=== PATIENT | female | born 1990 | race Caucasian/White ===

== ENCOUNTER 2021-03-02 14:24 | Emergency (ER) | payer MEDICAID, SELFPAY ==
--- NOTE | 2021-03-02 | ECG_ITS ---
Test Reason : CHEST PAIN Blood Pressure : / mmHG Vent. Rate : 105 BPM Atrial Rate : 105 BPM P-R Int : 154 ms QRS Dur : 106 ms QT Int : 366 ms P-R-T Axes : 051 062 051 degrees QTc Int : 483 ms Sinus tachycardia Otherwise normal ECG No previous ECGs available Referred By: Generic ED Physician Electronically Signed By:Damian Hung
[2021-03-02 14:32] VITALS: BP 140/80; PULSE 118; O2SAT 96
== END 2021-03-02 19:02 | disposition left against medical advice (07) ==
PROVIDERS: Emergency Provider Emergency Medicine; PCP Nurse Practitioner Family
DX: R07.9 Chest pain, unspecified (principal)
CPT/HCPCS: 93005; 99283

== ENCOUNTER 2021-04-14 17:33 | Emergency (ER) | payer MEDICAID, SELFPAY ==
[2021-04-14 17:49] VITALS: BP 151/98; PULSE 110; RESP 18; TEMP 36.8; O2SAT 99; BMI 36.6
--- NOTE | 2021-04-14 22:11 | PC.NURSE ---
PATIENT LEAVING WAITING ROOM AND CHECKING BACK IN WHILE STILL ON THE TRIAGE TRACKER. PATIENT LWT AROUND 2100 SHE REPORTS
== END 2021-04-14 22:13 | disposition left against medical advice (07) ==
PROVIDERS: Emergency Provider Emergency Medicine
DX: R10.9 Unspecified abdominal pain (principal)
CPT/HCPCS: 99281

== ENCOUNTER 2021-04-14 21:39 | Inpatient (IN) | payer MEDICAID, OTHER, SELFPAY ==
[2021-04-14 21:58] VITALS: BP 130/79; PULSE 120; RESP 20; TEMP 35.7; O2SAT 96; BMI 39.9
[2021-04-14 22:18] LABS: MANUAL DIFF FLAG NO
[2021-04-14 22:20] LABS: Basophils Percent Auto 0.1 % (0-2); Eosinophils Absolute Auto 0.1 X10*3/uL (0.0-0.4); Eosinophils Percent Auto 1.3 % (0-4); Hematocrit 31.9 % (37.0-47.0); Hemoglobin 10.2 g/dl (12.0-16.0); Imm Gran Abs Auto 0.02 X10*3/uL (0.00-0.03); Imm Gran Pct Auto 0.3 % (0.0-0.4); Lymphocytes Absolute Auto 2.2 X10*3/uL (1.2-4.9); Lymphocytes Percent Auto 27.9 % (20-40); Mean Corpuscular Hemoglobin 25.8 pg (27.0-33.0); Mean Corpuscular Volume 80.8 fL (80.0-98.0); Monocytes Absolute Auto 0.4 X10*3/uL (0.1-1.2); Monocytes Percent Auto 5.7 % (2-11); Neutrophils Percent Auto 64.7 % (45-73); Platelet Count 218 X10*3/uL (160-400); Red Blood Count 3.95 X10*6/uL (4.20-5.50); Red Cell Distribution Width 14.6 % (11.0-16.0); White Blood Count 7.7 X10*3/uL (4.8-10.8)
[2021-04-14 22:33] LABS: Ethanol < 10 mg/dL
[2021-04-14 22:36] LABS: COVID-19 Test Negative (Negative)
[2021-04-14 22:37] LABS: Alanine Aminotransferase 24 U/L (0-31); Albumin Level 4.1 g/dL (3.5-5.0); Alkaline Phosphatase 111 U/L (39-117); Anion Gap 11 (12-20); Aspartate Amino Transferase 24 U/L (5-31); Bilirubin Direct < 0.2 mg/dL (0.0-0.5); Bilirubin Total 0.3 mg/dL (0.0-1.0); Blood Urea Nitrogen 7 mg/dL (9-16); Calcium 9.6 mg/dL (8.4-10.2); Carbon Dioxide 27 mmol/L (22-29); Chloride 103 mmol/L (96-108); Creatinine Clr Calc Pharmacy 110.6; Estimated Glomerular Filt Rate > 60; Glucose Random 101 mg/dL (60-115); Lipase 25 U/L (8-78); Potassium 4.4 mmol/L (3.3-5.1); Sodium 137 mmol/L (135-145); Total Protein 7.4 g/dL (6.5-8.0)
--- NOTE | 2021-04-14 23:07 | ED_ITS ---
HPI - Psych General Chief Complaint: Psychiatric Symptoms Stated Complaint: crisis Time Seen by Provider: 04/14/21 22:10 Source: patient Mode of arrival: ambulatory Limitations: no limitations History of Present Illness HPI Narrative: This is a 31-year-old female past medical history significant for anxiety, depression, bipolar, PTSD presenting to the emergency department saying i just don't want to live anymore X1 week. patient tells me she is in a usp and recently lost custody of her daughter, she feels like everything is going downhill. She tells me she has had previous suicide attempts including overdosing and trying to hang herself. She tells me that this time she does not have a specific plan but she would likely overdose on medications. She tells me she feels anxious, and depressed. Denies visual, auditory and tactile hallucinations. She tells me she uses heroin and cocaine, IV. She smokes 5 cigarets a day. Denies alcohol use. she denies any medical complaints at this time. She is tearful and appears very anxious. Reports taking all her medications as prescribed. MD complaint: suicidal ideation, feels depressed, anxiety and substance abuse Onset (ago): week(s) (1) Duration: constant History of same: Yes Relieving factors: none Exacerbating factors: none Context: recent drug abuse and significant life stressor Associated psychiatric symptoms: depression, suicidal ideation and racing thoughts Associated symptoms: denies other symptoms Treatments prior to arrival: placed on mental health hold If self harm: admits thoughts of self harm and has plan (overdose) Related Data Allergies Allergy/AdvReac Type Severity Reaction Status Date / Time acetaminophen Allergy Mild UNKNOWN Verified 04/14/21 21:58 [From Darvocet-N 50] meperidine [From Demerol] Allergy Mild UNKNOWN Verified 04/14/21 21:58 Penicillins Allergy Mild UNKNOWN Verified 04/14/21 21:58 propoxyphene Allergy Mild UNKNOWN Verified 04/14/21 21:58 [From Darvocet-N 50] Sulfa (Sulfonamide Allergy Mild UNKNOWN, Verified 04/14/21 21:58 Antibiotics) HIVES penicillin V Allergy Unknown SWELLING Verified 12/28/16 00:00 Review of Systems Review of Systems: Constitutional : No Fever, No Chills ENT/Mouth : No Ear Pain, No Nasal Congestion, No sore throat Eyes: No Eye Pain, No Swelling, No Redness Cardiovascular : No Chest Pain, No SOB Respiratory : No Cough, No Sputum, No Dyspnea Gastrointestinal : No Nausea, No Vomiting, No Diarrhea, No Hematochezia, No Melena Genitourinary : No Dysuria, No Urinary Frequency, No Hematuria Musculoskeletal : No Myalgias Skin : No Skin Lesions, No rash Neuro : No Weakness, No Numbness, No Paresthesias, No Dizziness, No Headache Psych : positive Anxiety, positive Depression, positive SI/HI All other systems reviewed and are negative Yes all other systems are reviewed and are negative [facility] Past Medical History Attestation statement: The following information was validated with the patient. Source: old records reviewed and nursing notes reviewed Social History Social History Advance Directives: No Advance Directives Information Provided: No Patient : No Physical Exam Vital Signs: Vital Signs: Last Vital Signs Temp 96.3 F L 04/14/21 21:58 Pulse 120 H 04/14/21 21:58 Resp 20 04/14/21 21:58 BP 130/79 04/14/21 21:58 Pulse Ox 96 04/14/21 21:58 BMI result Body Mass Index 39.9 VSS Appearance: Alert.? Oriented X3.? No acute distress.?+ tearful Head: Normocephalic, atraumatic, no step-offs or deformities Eyes: Pupils equal, round and reactive to light.? ENT: Pharynx normal.? Neck: Normal inspection.? Neck supple.? CVS: Normal heart rate and rhythm.? Pulses normal.? Respiratory: No respiratory distress.? Breath sounds normal.? Abdomen: Soft and nontender.? Skin: Skin warm and dry.? Normal skin color.? Normal skin turgor.?+ Superficial lacerations noted to bilateral ventral aspects of forearms. + Track walker noted to bilateral hands and forearms. Extremities: No lower extremity edema.? No calf ttp. 5/5 strength to bilateral upper and lower extremities Back: No midline tenderness, no C-spine tenderness, full range of motion, no CVA tenderness bilaterally Neuro: Oriented X 3.? No motor deficit.? No sensory deficit. CN 2-12 intact Course Reevaluation(s) Reevaluation #1: CBC within normal limits, there is however, a normocytic anemia noted. No acute electrolyte abnormalities. Ethanol less than 10. COVID negative. Urine toxicology pending. At this time patient will be placed in physician observation to allow more time for inpatient placement. At time observation was started patient, c ooperative in no acute distress. Physical examination unchanged from initial. Will continue to monitor. Time: 00:15 MDM - Psych MDM Narrative Medical decision making narrative: 1213 31 yo f presents with suicidal ideation with no specific plan. Hx of same. Heroin and cocain use. PE Significant for an anxious female, tearful with bilateral superficial self- inflicted wounds to forearms, and track walker. Plan at this time is to obtain basic labs, urine and behavioral health consult. Medical Records Attestation: I reviewed the patient's medical records. Lab Data Attestation: I reviewed the patient's lab results. Result diagrams: 04/14/21 22:12 04/14/21 22:12 Labs: Lab Results 04/14/21 04/14/21 04/14/21 Range/Units 22:12 22:12 22:12 WBC 7.7 (4.8-10.8) X10*3/uL RBC 3.95 L (4.20-5.50) X10*6/uL Hgb 10.2 L (12.0-16.0) g/dl Hct 31.9 L (37.0-47.0) % MCV 80.8 (80.0-98.0) fL MCH 25.8 L (27.0-33.0) pg MCHC 32.0 (31.0-35.0) g/dl RDW 14.6 (11.0-16.0) % Plt Count 218 (160-400) X10*3/uL MPV 10.0 (9.4-12.3) fL Immature Gran % (Auto) 0.3 (0.0-0.4) % Neut % (Auto) 64.7 (45-73) % Lymph % (Auto) 27.9 (20-40) % [place] % (Auto) 5.7 (2-11) % Eos % (Auto) 1.3 (0-4) % Baso % (Auto) 0.1 (0-2) % Lymph # (Auto) 2.2 (1.2-4.9) X10*3/uL [place] # (Auto) 0.4 (0.1-1.2) X10*3/uL Eos # (Auto) 0.1 (0.0-0.4) X10*3/uL Baso # (Auto) 0.0 (0.0-0.2) X10*3/uL Abs Immat Gran (auto) 0.02 (0.00-0.03) X10*3/uL Absolute Neuts (auto) 5.0 (2.0-8.3) x10*3/uL Absolute Nucleated RBC 0.000 (0.0-0.012) X10*3/uL Nucleated RBC % (auto) 0.0 (0.0-0.2) /100WBC Sodium 137 (135-145) mmol/L Potassium 4.4 (3.3-5.1) mmol/L Chloride 103 (96-108) mmol/L Carbon Dioxide 27 (22-29) mmol/L Anion Gap 11 L (12-20) BUN 7 L (9-16) mg/dL Creatinine 0.78 (0.5-1.4) mg/dL Estim Creat Clear Calc 110.6 Estimated GFR > 60 Random Glucose 101 (60-115) mg/dL Calcium 9.6 (8.4-10.2) mg/dL Total Bilirubin 0.3 (0.0-1.0) mg/dL Direct Bilirubin < 0.2 (0.0-0.5) mg/dL AST 24 (5-31) U/L ALT 24 (0-31) U/L Alkaline Phosphatase 111 (39-117) U/L Total Protein 7.4 (6.5-8.0) g/dL Albumin 4.1 (3.5-5.0) g/dL Lipase 25 (8-78) U/L Ethyl Alcohol mg/dL COVID-19 (AJ) Negative (Negative) COVID-19 Clin Com See Note 04/14/21 Range/Units 22:12 WBC (4.8-10.8) X10*3/uL RBC (4.20-5.50) X10*6/uL Hgb (12.0-16.0) g/dl Hct (37.0-47.0) % MCV (80.0-98.0) fL MCH (27.0-33.0) pg MCHC (31.0-35.0) g/dl RDW (11.0-16.0) % Plt Count (160-400) X10*3/uL MPV (9.4-12.3) fL Immature Gran % (Auto) (0.0-0.4) % Neut % (Auto) (45-73) % Lymph % (Auto) (20-40) % [place] % (Auto) (2-11) % Eos % (Auto) (0-4) % Baso % (Auto) (0-2) % Lymph # (Auto) (1.2-4.9) X10*3/uL [place] # (Auto) (0.1-1.2) X10*3/uL Eos # (Auto) (0.0-0.4) X10*3/uL Baso # (Auto) (0.0-0.2) X10*3/uL Abs Immat Gran (auto) (0.00-0.03) X10*3/uL Absolute Neuts (auto) (2.0-8.3) x10*3/uL Absolute Nucleated RBC (0.0-0.012) X10*3/uL Nucleated RBC % (auto) (0.0-0.2) /100WBC Sodium (135-145) mmol/L Potassium (3.3-5.1) mmol/L Chloride (96-108) mmol/L Carbon Dioxide (22-29) mmol/L Anion Gap (12-20) BUN (9-16) mg/dL Creatinine (0.5-1.4) mg/dL Estim Creat Clear Calc Estimated GFR Random Glucose (60-115) mg/dL Calcium (8.4-10.2) mg/dL Total Bilirubin (0.0-1.0) mg/dL Direct Bilirubin (0.0-0.5) mg/dL AST (5-31) U/L ALT (0-31) U/L Alkaline Phosphatase (39-117) U/L Total Protein (6.5-8.0) g/dL Albumin (3.5-5.0) g/dL Lipase (8-78) U/L Ethyl Alcohol < 10 mg/dL COVID-19 (AJ) (Negative) COVID-19 Clin Com Critical Care Time Critical Care Time Critical Care Time: No Discharge Plan Discharge Clinical Impression: Suicidal ideation, Depression, Acute anxiety Patient Disposition: Still a Patient
[2021-04-15 01:49] LABS: Appearance Urine CLEAR; Color Urine YELLOW; Glucose Urine UA NEG (NEG); Leukocyte Esterase Urine NEG (NEG); Nitrite Urine NEG (NEG); Urine Blood NEG (NEG); Urine Ketones NEG (NEG); Urine Protein NEG (NEG-TRACE)
[2021-04-15 01:51] LABS: UPreg QC Valid YES; Urine Pregnancy NEGATIVE (NEGATIVE)
[2021-04-15 01:56] LABS: RBC Urine 0 /HPF (0); Squamous Epithelial Cell Urine 2+ /LPF; WBC Urine 0-2 /HPF (0-4)
--- NOTE | 2021-04-15 02:04 | PC.NURSE ---
[facility] referral completed/confirmed by Morena, patient will be screened in the morning
[2021-04-15 02:05] LABS: Amphetamine Screen Urine POSITIVE (Not Detect); Barbiturates, Urine Not Detected (Not Detect); Benzodiazepines Screen Urine Not Detected (Not Detect); Cannabinoid Screen Urine Not Detected (Not Detect); Cocaine Screen Urine POSITIVE (Not Detect); Fentanyl, urine POSITIVE (Not Detect); Opiate Screen Urine Not Detected (Not Detect); Phencyclidine Screen Urine Not Detected (Not Detect)
[2021-04-15 02:41] VITALS: BP 91/53; PULSE 80; RESP 14; TEMP 35.6
--- NOTE | 2021-04-15 03:40 | PC.NURSE ---
pt a&o, denies any sob or chest pain. pt stating she does not want to live any more. Pt was tearful at time but cooperative. 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 Belonging secured with security. pt been sleeping most of the evening with out any events. Pt remains on 1:1 observation. will follow up in the am.
[2021-04-15] MEDS: Gabapentin 600 MG TABLET PO ×3 (09:02→22:32)
[2021-04-15] MEDS: LORazepam 0.5 MG TABLET PO (09:03)
--- NOTE | 2021-04-15 09:03 | PC.NURSE ---
sleeping most of the morning, nad, easily woken, alert, speech cleartt, skin wpd, father called and informed of pt status w pt permission, eating breakfast
[2021-04-15 09:33] VITALS: BP 102/51; PULSE 82; RESP 15; O2SAT 96
[2021-04-15 10:59] VITALS: BP 101/59; PULSE 79; RESP 18; O2SAT 96
--- NOTE | 2021-04-15 10:59 | HE.PHANOTE ---
Methadone confirm with Rebecca at [facility]. Patient was lasted dose on 04/08/21 with 170 mg, given 6 dose for home that lasted until 04/14/2021 Ashlee Castaneda, SandipD
--- NOTE | 2021-04-15 11:12 | PHA.MEDREC ---
Pharmacy Consult ? Medication Reconciliation Pharmacy has completed the medication reconciliation. Recieved medication list from [facility]. Patient knew all medications. Reports she can contact her group to have mary brought in if she is going to be staying. Ashlee Castaneda, SandipD
[2021-04-15] MEDS: methADONE HCl 20 MG/2 ML ORAL.CONC 170 MG PO (12:45)
--- NOTE | 2021-04-15 12:53 | HE.PHANOTE ---
Contact the [facility] [phone] to have non-formulary medications brought. An employee will bring the medications later today Ashlee Castaneda PharmD
[2021-04-15] MEDS: Acetaminophen 325 MG TABLET PO ×2 (15:58→22:32)
[2021-04-15 22:29] VITALS: RESP 16
[2021-04-15] MEDS: hydrOXYzine HCL 25 MG TABLET PO (22:32)
[2021-04-15] MEDS: QUEtiapine Fumarate 25 MG TABLET 75 MG PO (22:33)
--- NOTE | 2021-04-16 | ECG_ITS ---
Test Reason : MED CLEARANCE Blood Pressure : / mmHG Vent. Rate : 073 BPM Atrial Rate : 073 BPM P-R Int : 152 ms QRS Dur : 112 ms QT Int : 404 ms P-R-T Axes : 056 081 078 degrees QTc Int : 445 ms Normal sinus rhythm Incomplete right bundle branch block Normal ECG When compared with ECG of 02-MAR-2021 14:39, No significant change was found Referred By: Rashawn Portillo Electronically Signed By:Damian Hung
[2021-04-16 00:10] VITALS: BMI 46.7
[2021-04-16] MEDS: LORazepam 0.5 MG TABLET PO ×2 (00:18→14:35)
[2021-04-16] MEDS: hydrOXYzine HCL 25 MG TABLET PO (00:18)
--- NOTE | 2021-04-16 01:37 | PC.ADMIT ---
patient was a referral from the [facility] ER by the CARE team. legal CV. dx DD. nurse to nurse, collateral information obtained prior to admission. reports previous hospitalizations for inpatient behavioral health at [facility] and rehab admissions in the past.
--- NOTE | 2021-04-16 01:54 | PC.ADMIT ---
reports a ''one time relapse on heroin and cocaine'' and used on Sunday just prior to ER admission. is currently on methadone and denies any w/d s/s. medications were verified in the ER and had received methadone prior to admission to [facility]. does not want information about + drug screen results given to father, [facility] staff or DCF. reports increased depressive symptoms but denies current SI stating ''I'm safe getting treatment, if I wasn't here I think I'd try to OD'' reports superficial cutting events that she self reports as doing on Sunday. ''It helps'' reported cutting events as a teen but then had stopped for many years. L lower leg with several superficial cutting wounds that are healing and show no s/s of infection. medical hx of HTN, hx of Hep C in which she had MAVYRET and is now resolved and reports that she has a surgical appointment at [facility] for Sunday to have her gallbladder removed. Would like to have Hep screen drawn as she reports using a shared needle when she relapsed.treatment plan and safety tool initiated. oriented to unit.
[2021-04-16] MEDS: Omeprazole 20 MG CAPSULE.DR PO (06:49)
[2021-04-16 09:48] VITALS: BP 107/59; PULSE 79; RESP 16; TEMP 36.6; O2SAT 97
[2021-04-16] MEDS: Gabapentin 600 MG TABLET PO ×3 (09:51→20:44)
[2021-04-16] MEDS: methADONE HCl 20 MG/2 ML ORAL.CONC 170 MG PO (09:51)
[2021-04-16] MEDS: buPROPion HCl XL 150 MG TAB.ER.24H PO (09:51)
[2021-04-16] MEDS: buPROPion HCl XL 300 MG TAB.ER.24H PO (09:51)
[2021-04-16] MEDS: Acetaminophen 325 MG TABLET PO ×3 (09:52→20:43)
[2021-04-16] MEDS: atenoloL 25 MG TABLET PO (09:52)
--- NOTE | 2021-04-16 13:50 | ECG_ITS ---
Test Reason : cp Blood Pressure : / mmHG Vent. Rate : 082 BPM Atrial Rate : 082 BPM P-R Int : 132 ms QRS Dur : 110 ms QT Int : 378 ms P-R-T Axes : 042 072 074 degrees QTc Int : 441 ms Normal sinus rhythm Incomplete right bundle branch block Borderline ECG When compared with ECG of 15-APR-2021 23:23, No significant change was found Referred By: Christina Morales Electronically Signed By:LUIZ NAVAS MD
--- NOTE | 2021-04-16 17:32 | P.HPPS_ITS ---
HPI Date of Service: 04/16/21 Chief Complaint: Crisis, cutting and relapse on heroin Sources of Information: patient interviewed, chart reviewed and crisis/core team assessment reviewed HPI Subjective Notes: Conditional Voluntary Healthcare Proxy: No Guardianship: No Narrative: 31 year old mother of 2 (13 yo and 18 mo old) with history of opioid dependence, depression, non-suicidal self injury. Patient has been residing at the [facility] due to heroin dependence and had been sober for several months. She reports her anxiety and urges to cut have been increasing. She also reports she was struggling with gall bladder pain and was supposed to have surgery 04/18/21 at [facility]. Patient presented for abdominal pain related to her gall bladder and also reported increased suicidal ideation and feelings of hopelessness and worthlessness and increased depression after she relapsed. She was having increase NSSI proior to the relapse because of intensifying anxiety. Patient had SI with possible plan of overdosing. She denied AVH, HI or violent ideation. She reports episodes of intense panic that precipitate her cutting. She says she has flashbacks of severe traumas that are overwhelming to her. She reports she has been in touch with her psychiatric practitioner at [facility] and they have been rearranging medications. Her Seroquel was being tapered due to patient reporting sig weight gain. It went down from 150 mg to 75 mg. She reports Lorazepam had helped in the past. She says Latuda which was introduced dutring an October 2020 hospital stay has been helpful. She is on 60 mg. No side effects. She feels guilt and remorse about the relapse since she was doing really well at her sober living home and was on phase II with a lot of freedom. Stressors include 18 month old child in DCF custody about 6 months ago. Past Psychiatric History: Suicide attempt by hanging last year and another by OD Opioid dependence on methadone Non suicidal self injury PTSD Depression Medical Evaluation Reviewed: Yes [facility] Medical History (Updated 04/16/21 @ 06:24 by Brittny Hanks RN) Hypertension Family History: Alcoholism and substance use Social History: Lives in a sober living home [facility] for past several months. Raised by grandparents then started living with her father. Single. 2 children age 13 (lives with his father and hasn't seen him in 10 years) and 18 month old daughter in DCF custody. Substance History: Opioid use disorder on methadone. UTOX positive for Fentanyl, Amphetamine and cocaine Trauma History: Yes, details unknown Diagnostics Vital Signs (24Hr): Vital Signs - 24 hr 04/16/21 09:48 04/16/21 20:52 Temperature 97.9 F 97.9 F Pulse Rate 79 89 Respiratory Rate 16 Blood Pressure 107/59 L 132/71 Pulse Oximetry 97 96 BMI result Body Mass Index 46.7 Labs Results: 04/14/21 22:12 04/14/21 22:12 Labs: Laboratory Results - last 48 hr 04/15/21 04/15/21 04/15/21 01:42 01:42 01:42 Urine Color YELLOW Urine Appearance CLEAR Urine pH 7.0 Ur Specific [place] 1.010 Urine Protein NEG Urine Glucose (UA) NEG Urine Ketones NEG Urine Blood NEG Urine Nitrite NEG Ur Leukocyte Esterase NEG Urine RBC 0 Urine WBC 0-2 Ur Squamous Epith Cells 2+ Urine Bacteria NONE Urine Test NEGATIVE Urine Opiates Screen Not Detected Urine Fentanyl Screen POSITIVE H Ur Barbiturates Screen Not Detected Ur Phencyclidine Scrn Not Detected Ur Amphetamines Screen POSITIVE H U Benzodiazepines Scrn Not Detected Urine Cocaine Screen POSITIVE H U Marijuana (THC) Screen Not Detected EKG EKG Comment: ordered Meds/Allergies Meds Home Medications Acetaminophen (Acetaminophen 325 Mg Tablet) 325 mg PO TID [facility] Last Admin: 04/16/21 20:43 Dose: 325 mg Documented by: Atenolol (Atenolol 25 Mg Tablet) 25 mg PO DAILY [facility]; Protocol Last Admin: 04/16/21 09:52 Dose: 25 mg Documented by: Bupropion HCl (Bupropion Hcl Xl 150 Mg Tab.Er.24h) 150 mg PO DAILY [facility] Last Admin: 04/16/21 09:51 Dose: 150 mg Documented by: Bupropion HCl (Bupropion Hcl Xl 300 Mg Tab.Er.24h) 300 mg PO DAILY [facility] Last Admin: 04/16/21 09:51 Dose: 300 mg Documented by: Clonidine HCl (Clonidine Hcl 0.1 Mg Tablet) 0.1 mg PO TID PRN; Protocol PRN Reason: anxiety unresponsive to Hydroxyzine Gabapentin (Gabapentin 600 Mg Tablet) 600 mg PO TID [facility] Last Admin: 04/16/21 20:44 Dose: 600 mg Documented by: Hydroxyzine HCl (Hydroxyzine Hcl 50 Mg Tablet) 50 mg PO TID PRN PRN Reason: Anxiety Lorazepam (Lorazepam 1 Mg Tablet) 1 mg PO DAILY PRN PRN Reason: Panic Last Admin: 04/16/21 20:44 Dose: 1 mg Documented by: Lurasidone HCl (Lurasidone Hcl 80 Mg Tablet) 80 mg PO BEDTIME [facility] Last Admin: 04/16/21 20:44 Dose: 80 mg Documented by: Methadone HCl (Methadone Hcl 20 Mg/2 Ml Oral.Conc) 170 mg PO DAILY [facility] Last Admin: 04/16/21 09:51 Dose: 170 mg Documented by: Nicotine Polacrilex (Nicotine Polacrilex 2 Mg Gum) 2 mg BUCCAL Q2H PRN PRN Reason: Nicotine Cravings Patient Own Medication ( Lisdexamfetamine [ Vyvanse] 60 Mg Capsule) 1 each PO DAILY [facility] Last Admin: 04/16/21 09:52 Dose: 1 each Documented by: Non-Formulary Medication (Terbinafine Hcl) 250 mg PO DAILY [facility] Omeprazole (Omeprazole 20 Mg Capsule.Dr) 20 mg PO DAILY@0630 [facility] Last Admin: 04/16/21 06:49 Dose: 20 mg Documented by: Pharmacy Consult (Consult Rx Perform Med Rec) 1 each MISCELLANE ONCE PRN PRN Reason: Consult order Quetiapine Fumarate (Quetiapine Fumarate 25 Mg Tablet) 75 mg PO BEDTIME [facility] Last Admin: 04/16/21 20:44 Dose: 75 mg Documented by: Allergies Allergies Allergy/AdvReac Type Severity Reaction Status Date / Time acetaminophen Allergy Mild UNKNOWN Verified 04/14/21 21:58 [From Darvocet-N 50] meperidine [From Demerol] Allergy Mild UNKNOWN Verified 04/14/21 21:58 Penicillins Allergy Mild UNKNOWN Verified 04/14/21 21:58 propoxyphene Allergy Mild UNKNOWN Verified 04/14/21 21:58 [From Darvocet-N 50] Sulfa (Sulfonamide Allergy Mild UNKNOWN, Verified 04/14/21 21:58 Antibiotics) HIVES penicillin V Allergy Unknown SWELLING Verified 12/28/16 00:00 Mental Status Exam Mental Status Exam Patient Appearance: Appropriate Patient Orientation: Person, Place, Time and Situation Level of Consciousness: Awake, Appropriate, Alert and Follows Commands Patient Behavior: Appropriate, Talkative, Cooperative, Anxious, Fearful, Good Eye Contact and Crying Mood Description: Depressed, Anxious, Labile, Sad and Nervous Affect Description: Anxious and Labile Patient Cognition Impaired: No Ability to Follow Directions: Excellent Speech Pattern: Clear, Appropriate, Spontaneous Speech and Pressured Memory Description: Intact Hallucinations: None Delusions: Not Present Thought Process: Intact and Linear Thought Content: positive for Goal Oriented, positive for Linear, positive for Preoccupation and positive for Suicidal Ideation Depressive Symptoms: Increased Anxiety, Insomnia, Difficulty Sleeping, Crying S pells, Feelings of Worthlessness, Hopelessness, Feelings of Guilt, Unhappiness, Thoughts of /Suicide and Low Self Esteem Judgement: Good Assessment & Plan Assessment & Plan (1) Depression: Status: Acute Code(s): F32.A - Depression, unspecified Assessment and Plan: Admit to [facility] on CV Increase Latuda to 80 mg as she has found this very helpful for her Increase Ativan to 1 mg QD PRN anxiety Check EKG Milieu therapy and groups Substance use counseling Collateral contacts. Discharge planning Patient educated on: medication risk/benefits and therapeutic strategies Informed Consent: understands Reason for continued inpatient stay Substantial Risk for: harm to self and rapid decompensation
[2021-04-16] MEDS: LORazepam 1 MG TABLET PO (20:44)
[2021-04-16] MEDS: Lurasidone HCl 80 MG TABLET PO (20:44)
[2021-04-16] MEDS: QUEtiapine Fumarate 25 MG TABLET 75 MG PO (20:44)
[2021-04-16 20:52] VITALS: BP 132/71; PULSE 89; TEMP 36.6; O2SAT 96
[2021-04-17] MEDS: Acetaminophen 325 MG TABLET PO ×2 (09:55→20:40)
[2021-04-17] MEDS: buPROPion HCl XL 150 MG TAB.ER.24H PO (09:55)
[2021-04-17] MEDS: Gabapentin 600 MG TABLET PO ×3 (09:55→20:40)
[2021-04-17] MEDS: atenoloL 25 MG TABLET PO (09:56)
[2021-04-17] MEDS: Omeprazole 20 MG CAPSULE.DR PO (09:56)
[2021-04-17] MEDS: buPROPion HCl XL 300 MG TAB.ER.24H PO (09:56)
[2021-04-17] MEDS: cloNIDine HCL 0.1 MG TABLET PO ×2 (10:00→20:39)
[2021-04-17] MEDS: methADONE HCl 20 MG/2 ML ORAL.CONC 170 MG PO (10:01)
[2021-04-17 10:05] VITALS: BP 125/78; PULSE 102; TEMP 36.4; O2SAT 98
[2021-04-17] MEDS: LORazepam 1 MG TABLET PO (11:12)
[2021-04-17] MEDS: hydrOXYzine HCL 50 MG TABLET PO ×2 (11:12→20:39)
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
[2021-04-17] MEDS: QUEtiapine Fumarate 25 MG TABLET 75 MG PO (20:39)
[2021-04-17] MEDS: Lurasidone HCl 80 MG TABLET PO (20:40)
[2021-04-17 20:43] VITALS: BP 107/70; PULSE 81; TEMP 36.4; O2SAT 97
[2021-04-18] MEDS: hydrOXYzine HCL 50 MG TABLET PO ×3 (08:42→20:11)
[2021-04-18] MEDS: Acetaminophen 325 MG TABLET PO ×3 (08:42→20:11)
[2021-04-18] MEDS: buPROPion HCl XL 150 MG TAB.ER.24H PO (08:43)
[2021-04-18] MEDS: Omeprazole 20 MG CAPSULE.DR PO ×2 (08:44→17:31)
[2021-04-18] MEDS: buPROPion HCl XL 300 MG TAB.ER.24H PO (08:44)
[2021-04-18] MEDS: Gabapentin 600 MG TABLET PO ×3 (08:44→20:11)
[2021-04-18] MEDS: atenoloL 25 MG TABLET PO (08:45)
[2021-04-18] MEDS: methADONE HCl 20 MG/2 ML ORAL.CONC 170 MG PO (08:47)
[2021-04-18 09:00] VITALS: BP 121/58; PULSE 86; RESP 16; TEMP 36.7; O2SAT 95
--- NOTE | 2021-04-18 11:37 | HO.PSYCHPN ---
Subjective Subjective Date of Service: 04/18/21 Reason For Visit: Crisis, cutting and relapse on heroin Subjective Notes: Conditional Voluntary Interim History: Pt continues to endorse depressed mood, feeling very hopeless, helpless. She continues to report suicidal ideation with plan to OD. She reports feeling guilt related to relapse. She is worried about impact of relapsed on getting back her daughter. She reports anxious mood, urges to engage in SIB. She reports improved sleep. She would like to talk with glaze supervisor provider about medication changes. She reports clonazepam more effective than ativan. Medication Compliance: Yes Side effects from medications: No Review of Systems Review of Systems Constitutional : No Fever, No Chills ENT/Mouth : No Ear Pain, No Nasal Congestion, No sore throat Eyes: No Eye Pain, No Swelling, No Redness Cardiovascular : No Chest Pain, No SOB Respiratory : No Cough, No Sputum, No Dyspnea Gastrointestinal : No Nausea, No Vomiting, No Diarrhea, No Hematochezia, No Melena Genitourinary : No Dysuria, No Urinary Frequency, No Hematuria Musculoskeletal : No Myalgias Skin : No Skin Lesions, No rash Neuro : No Weakness, No Numbness, No Paresthesias, No Dizziness, No Headache Psych : positive Anxiety, positive Depression, positive SI/HI All other systems reviewed and are negative Yes all other systems are reviewed and are negative Mental Status Exam Mental Status Exam Narrative: Appearance: casually groomed, arms with superficial cuts, restless/anxious, crying intermittently. good hygiene Behavior: cooperative Psychomotor: no agitation or retardation noted Speech: clear, normal rate/rhythm/volume, spontaneous TP: linear TC: no signs of psychosis, feeling hopeless Mood: depressed Affect: congruent, blunted SI: active with plan to OD but denies any intent on unit HI: none VH/AH: none Insight/judgment: fair x 2. Memory/cog: alert, oriented x 3 grossly intact to conversational testing. Diagnostics Vital Signs (24Hr): Vital Signs - 24 hr 04/17/21 20:43 04/18/21 09:00 Temperature 97.6 F 98.0 F Pulse Rate 81 86 Respiratory Rate 16 Blood Pressure 107/70 121/58 L Pulse Oximetry 97 95 BMI result Body Mass Index 46.7 Labs Results: 04/14/21 22:12 04/14/21 22:12 Medications Medications Current Medications Acetaminophen (Acetaminophen 325 Mg Tablet) 325 mg PO TID [facility] Last Admin: 04/18/21 08:42 Dose: 325 mg Documented by: Atenolol (Atenolol 25 Mg Tablet) 25 mg PO DAILY [facility]; Protocol Last Admin: 04/18/21 08:45 Dose: 25 mg Documented by: Bupropion HCl (Bupropion Hcl Xl 150 Mg Tab.Er.24h) 150 mg PO DAILY [facility] Last Admin: 04/18/21 08:43 Dose: 150 mg Documented by: Bupropion HCl (Bupropion Hcl Xl 300 Mg Tab.Er.24h) 300 mg PO DAILY [facility] Last Admin: 04/18/21 08:44 Dose: 300 mg Documented by: Clonidine HCl (Clonidine Hcl 0.1 Mg Tablet) 0.1 mg PO TID PRN; Protocol PRN Reason: anxiety unresponsive to Hydroxyzine Last Admin: 04/17/21 20:39 Dose: 0.1 mg Documented by: Gabapentin (Gabapentin 600 Mg Tablet) 600 mg PO TID [facility] Last Admin: 04/18/21 08:44 Dose: 600 mg Documented by: Hydroxyzine HCl (Hydroxyzine Hcl 50 Mg Tablet) 50 mg PO TID PRN PRN Reason: Anxiety Last Admin: 04/18/21 08:42 Dose: 50 mg Documented by: Lorazepam (Lorazepam 1 Mg Tablet) 1 mg PO DAILY PRN PRN Reason: Panic Last Admin: 04/17/21 11:12 Dose: 1 mg Documented by: Lurasidone HCl (Lurasidone Hcl 80 Mg Tablet) 80 mg PO BEDTIME [facility] Last Admin: 04/17/21 20:40 Dose: 80 mg Documented by: Methadone HCl (Methadone Hcl 20 Mg/2 Ml Oral.Conc) 170 mg PO DAILY [facility] Last Admin: 04/18/21 08:47 Dose: 170 mg Documented by: Nicotine Polacrilex (Nicotine Polacrilex 2 Mg Gum) 2 mg BUCCAL Q2H PRN PRN Reason: Nicotine Cravings Patient Own Medication ( Lisdexamfetamine [ Vyvanse] 60 Mg Capsule) 1 each PO DAILY [facility] Last Admin: 04/18/21 08:44 Dose: 1 each Documented by: Omeprazole (Omeprazole 20 Mg Capsule.Dr) 20 mg PO BID@0630,1630 [facility] Pharmacy Consult (Consult Rx Perform Med Rec) 1 each MISCELLANE ONCE PRN PRN Reason: Consult order Quetiapine Fumarate (Quetiapine Fumarate 25 Mg Tablet) 75 mg PO BEDTIME [facility] Last Admin: 04/17/21 20:39 Dose: 75 mg Documented by: Allergies Allergies Allergy/AdvReac Type Severity Reaction Status Date / Time acetaminophen Allergy Mild UNKNOWN Verified 04/14/21 21:58 [From Darvocet-N 50] meperidine [From Demerol] Allergy Mild UNKNOWN Verified 04/14/21 21:58 Penicillins Allergy Mild UNKNOWN Verified 04/14/21 21:58 propoxyphene Allergy Mild UNKNOWN Verified 04/14/21 21:58 [From Darvocet-N 50] Sulfa (Sulfonamide Allergy Mild UNKNOWN, Verified 04/14/21 21:58 Antibiotics) HIVES penicillin V Allergy Unknown SWELLING Verified 12/28/16 00:00 Assessment & Plan Assessment & Plan (1) Bipolar 2 disorder, major depressive episode: Status: Acute Code(s): F31.81 - Bipolar II disorder (2) Opioid use disorder, moderate, in early remission: Status: Acute Code(s): F11.21 - Opioid dependence, in remission (3) PTSD (post-traumatic stress disorder): Status: Acute Code(s): F43.10 - Post-traumatic stress disorder, unspecified Plan Ms. Das is a 31 year-old woman with hx of PTSD, Bipolar 2 Disorder, opioid use disorder in recovery who self presented to [facility] ED reporting SI with plan to OD. She has been in [facility]- residential substance use tx program for about 8 months- recently relapsed. PLAN 1. switch ativan to clonazepam. pt in controlled environment in program where there is less potential for abuse or misuse. 2. continue all other medications- pt wants to talk with glaze supervisor provider to discuss other med changes. 3. Obtain collateral information 4. Aftercare planning. I spent _25 minutes with the patient and/or on the patient floor today, greater than?50% of which was spent counseling/coordinating care. Reason for contiued inpatient stay Substantial Risk for: inability to function
[2021-04-18] MEDS: cloNIDine HCL 0.1 MG TABLET PO ×2 (15:10→20:10)
[2021-04-18] MEDS: clonazePAM 0.5 MG TABLET PO ×2 (15:10→20:10)
[2021-04-18 15:28] VITALS: BP 113/63; PULSE 87; RESP 20; O2SAT 96
[2021-04-18] MEDS: Lurasidone HCl 80 MG TABLET PO (20:11)
[2021-04-18] MEDS: QUEtiapine Fumarate 25 MG TABLET 75 MG PO (20:11)
[2021-04-18 20:20] VITALS: BP 107/65; PULSE 77; TEMP 36.5; O2SAT 97
[2021-04-19 08:49] LABS: Cholesterol 176 mg/dL; HDL Cholesterol 37 mg/dL; LDL Cholesterol Calculated 86 mg/dl; Triglycerides 266 mg/dL
[2021-04-19 08:50] LABS: Estimated Average Glucose 111 mg/dL; Hemoglobin A1c % 5.5 %
[2021-04-19 09:00] VITALS: BP 123/69; PULSE 92; RESP 18; O2SAT 97
[2021-04-19] MEDS: buPROPion HCl XL 300 MG TAB.ER.24H PO (09:09)
[2021-04-19] MEDS: atenoloL 25 MG TABLET PO (09:09)
[2021-04-19] MEDS: Gabapentin 600 MG TABLET PO ×3 (09:09→20:21)
[2021-04-19] MEDS: Omeprazole 20 MG CAPSULE.DR PO ×2 (09:09→15:02)
[2021-04-19] MEDS: Acetaminophen 325 MG TABLET PO ×3 (09:10→20:21)
[2021-04-19] MEDS: buPROPion HCl XL 150 MG TAB.ER.24H PO (09:11)
[2021-04-19 09:12] LABS: Thyroid Stimulating Hormone 1.47 uIU/mL (0.32-4.0)
[2021-04-19 09:35] LABS: Folate 8.6 ng/mL (> or = 4.0); Vitamin B12 332 pg/mL (200-900)
[2021-04-19] MEDS: hydrOXYzine HCL 50 MG TABLET PO ×2 (09:59→18:04)
[2021-04-19] MEDS: clonazePAM 0.5 MG TABLET PO ×2 (09:59→18:05)
[2021-04-19] MEDS: methADONE HCl 20 MG/2 ML ORAL.CONC 170 MG PO (10:00)
--- NOTE | 2021-04-19 14:28 | HO.PSYCHPN ---
Subjective Subjective Date of Service: 04/19/21 Reason For Visit: Crisis Subjective Notes: Conditional Voluntary Interim History: Pt reports clonazepam more helpful than ativan for flashbacks and anxiety. However, pt continues to endorse depressed mood, feeling like her daughter is better without her, hopeless, crying at times, passive suicidal ideation. She reports guilt related to relapse and worried about how this will affect her plan to reunify with his daughter. Pt has been visible in the unit, has attended some assigned groups. No behavioral concerns. Medication Compliance: Yes Side effects from medications: No Review of Systems Review of Systems Constitutional : No Fever, No Chills ENT/Mouth : No Ear Pain, No Nasal Congestion, No sore throat Eyes: No Eye Pain, No Swelling, No Redness Cardiovascular : No Chest Pain, No SOB Respiratory : No Cough, No Sputum, No Dyspnea Gastrointestinal : No Nausea, No Vomiting, No Diarrhea, No Hematochezia, No Melena Genitourinary : No Dysuria, No Urinary Frequency, No Hematuria Musculoskeletal : No Myalgias Skin : No Skin Lesions, No rash Neuro : No Weakness, No Numbness, No Paresthesias, No Dizziness, No Headache Psych : positive Anxiety, positive Depression, positive SI/HI All other systems reviewed and are negative Yes all other systems are reviewed and are negative Mental Status Exam Mental Status Exam Narrative: Appearance: casually groomed, arms with superficial cuts, restless/anxious, crying intermittently. good hygiene Behavior: cooperative Psychomotor: no agitation or retardation noted Speech: clear, normal rate/rhythm/volume, spontaneous TP: linear TC: no signs of psychosis, feeling hopeless Mood: depressed Affect: congruent, blunted SI: active with plan to OD but denies any intent on unit HI: none VH/AH: none Insight/judgment: fair x 2. Memory/cog: alert, oriented x 3 grossly intact to conversational testing. Diagnostics Vital Signs (24Hr): Vital Signs - 24 hr 04/18/21 15:28 04/18/21 20:20 04/19/21 09:00 Temperature 97.7 F Pulse Rate 87 77 92 Respiratory Rate 20 18 Blood Pressure 113/63 107/65 123/69 Pulse Oximetry 96 97 97 BMI result Body Mass Index 46.7 Labs Results: 04/14/21 22:12 04/14/21 22:12 Labs: Laboratory Results - last 48 hr 04/19/21 04/19/21 04/19/21 08:19 08:19 08:19 Estimat Average Glucose 111 Hemoglobin A1c % 5.5 Triglycerides 266 Cholesterol 176 LDL Cholesterol, Calc 86 HDL Cholesterol 37 Vitamin B12 332 Folate 8.6 TSH 1.47 Medications Medications Current Medications Acetaminophen (Acetaminophen 325 Mg Tablet) 325 mg PO TID [facility] Last Admin: 04/19/21 09:10 Dose: 325 mg Documented by: Al Hydroxide/Mg Hydroxide (Magnesium Hydrox/Alum Hydrox 30 Ml Oral.Susp) 30 ml PO Q6H PRN PRN Reason: Heartburn/Nausea Atenolol (Atenolol 25 Mg Tablet) 25 mg PO DAILY [facility]; Protocol Last Admin: 04/19/21 09:09 Dose: 25 mg Documented by: Bupropion HCl (Bupropion Hcl Xl 150 Mg Tab.Er.24h) 150 mg PO DAILY [facility] Last Admin: 04/19/21 09:11 Dose: 150 mg Documented by: Bupropion HCl (Bupropion Hcl Xl 300 Mg Tab.Er.24h) 300 mg PO DAILY [facility] Last Admin: 04/19/21 09:09 Dose: 300 mg Documented by: Clonazepam (Clonazepam 0.5 Mg Tablet) 0.5 mg PO BID PRN PRN Reason: Anxiety Last Admin: 04/19/21 09:59 Dose: 0.5 mg Documented by: Clonidine HCl (Clonidine Hcl 0.1 Mg Tablet) 0.1 mg PO TID PRN; Protocol PRN Reason: anxiety unresponsive to Hydroxyzine Last Admin: 04/18/21 20:10 Dose: 0.1 mg Documented by: Gabapentin (Gabapentin 600 Mg Tablet) 600 mg PO TID [facility] Last Admin: 04/19/21 09:09 Dose: 600 mg Documented by: Hydroxyzine HCl (Hydroxyzine Hcl 50 Mg Tablet) 50 mg PO Q6H PRN PRN Reason: Anxiety Last Admin: 04/19/21 09:59 Dose: 50 mg Documented by: Lurasidone HCl (Lurasidone Hcl 80 Mg Tablet) 80 mg PO BEDTIME [facility] Last Admin: 04/18/21 20:11 Dose: 80 mg Documented by: Magnesium Hydroxide (Milk Of Magnesia 30 Ml Oral.Susp) 30 ml PO DAILY PRN PRN Reason: Constipation Methadone HCl (Methadone Hcl 20 Mg/2 Ml Oral.Conc) 170 mg PO DAILY [facility] Last Admin: 04/19/21 10:00 Dose: 170 mg Documented by: Nicotine Polacrilex (Nicotine Polacrilex 2 Mg Gum) 2 mg BUCCAL Q2H PRN PRN Reason: Nicotine Cravings Patient Own Medication ( Lisdexamfetamine [ Vyvanse] 60 Mg Capsule) 1 each PO DAILY [facility] Last Admin: 04/19/21 09:08 Dose: 1 each Documented by: Omeprazole (Omeprazole 20 Mg Capsule.) 20 mg PO BID@0630,1630 [facility] Last Admin: 04/19/21 09:09 Dose: 20 mg Documented by: Pharmacy Consult (Consult Rx Perform Med Rec) 1 each MISCELLANE ONCE PRN PRN Reason: Consult order Quetiapine Fumarate (Quetiapine Fumarate 25 Mg Tablet) 75 mg PO BEDTIME [facility] Last Admin: 04/18/21 20:11 Dose: 75 mg Documented by: Trazodone HCl (Trazodone Hcl 50 Mg Tablet) 50 mg PO BEDTIME PRN PRN Reason: Insomnia Allergies Allergies Allergy/AdvReac Type Severity Reaction Status Date / Time acetaminophen Allergy Mild UNKNOWN Verified 04/14/21 21:58 [From Darvocet-N 50] meperidine [From Demerol] Allergy Mild UNKNOWN Verified 04/14/21 21:58 Penicillins Allergy Mild UNKNOWN Verified 04/14/21 21:58 propoxyphene Allergy Mild UNKNOWN Verified 04/14/21 21:58 [From Darvocet-N 50] Sulfa (Sulfonamide Allergy Mild UNKNOWN, Verified 04/14/21 21:58 Antibiotics) HIVES penicillin V Allergy Unknown SWELLING Verified 12/28/16 00:00 Assessment & Plan Assessment & Plan (1) Bipolar 2 disorder, major depressive episode: Status: Acute Code(s): F31.81 - Bipolar II disorder (2) Opioid use disorder, moderate, in early remission: Status: Acute Code(s): F11.21 - Opioid dependence, in remission (3) PTSD (post-traumatic stress disorder): Status: Acute Code(s): F43.10 - Post-traumatic stress disorder, unspecified Plan Ms. Das is a 31 year-old woman with hx of PTSD, Bipolar 2 Disorder, opioid use disorder in recovery who self presented to [facility] reporting SI with plan to OD. She has been in [facility]- residential substance use tx program for about 8 months- recently relapsed. PLAN 1. switch ativan to clonazepam. pt in controlled environment in program where there is less potential for abuse or misuse. 2. continue all other medications- pt wants to talk with tank terminal gauger provider to discuss other med changes. 3. Obtain collateral information 4. Aftercare planning. I spent __25____ minutes with the patient and/or on the patient floor today, greater than?50% of which was spent counseling/coordinating care. Reason for contiued inpatient stay Substantial Risk for: harm to self
[2021-04-19 15:00] VITALS: BP 109/64; PULSE 89; RESP 18; O2SAT 97
[2021-04-19] MEDS: cloNIDine HCL 0.1 MG TABLET PO ×2 (15:32→20:21)
[2021-04-19 18:00] VITALS: BP 116/61; PULSE 81; RESP 16; TEMP 36.7; O2SAT 97
[2021-04-19] MEDS: QUEtiapine Fumarate 25 MG TABLET 75 MG PO (20:21)
[2021-04-19] MEDS: Lurasidone HCl 80 MG TABLET PO (20:22)
[2021-04-19] MEDS: traZODone HCL 50 MG TABLET PO (20:22)
[2021-04-20 08:35] VITALS: BP 102/54; PULSE 86; RESP 17; TEMP 37.1; O2SAT 96
[2021-04-20] MEDS: Omeprazole 20 MG CAPSULE.DR PO ×2 (08:52→18:03)
[2021-04-20] MEDS: hydrOXYzine HCL 50 MG TABLET PO ×2 (08:52→20:15)
[2021-04-20] MEDS: buPROPion HCl XL 300 MG TAB.ER.24H PO (08:52)
[2021-04-20] MEDS: clonazePAM 0.5 MG TABLET PO (08:52)
[2021-04-20] MEDS: Acetaminophen 325 MG TABLET PO ×3 (08:52→20:14)
[2021-04-20] MEDS: buPROPion HCl XL 150 MG TAB.ER.24H PO (08:52)
[2021-04-20] MEDS: Gabapentin 600 MG TABLET PO ×3 (08:52→20:14)
[2021-04-20] MEDS: methADONE HCl 20 MG/2 ML ORAL.CONC 170 MG PO (08:55)
[2021-04-20 09:56] VITALS: BP 130/64; PULSE 91
[2021-04-20] MEDS: atenoloL 25 MG TABLET PO (09:57)
--- NOTE | 2021-04-20 14:18 | P.PNPSI_ITS ---
Subjective Subjective Date of Service: 04/20/21 Reason For Visit: Crisis Subjective Notes: Conditional Voluntary Interim History: Pt received news that daughter may be on list for adoption. Pt endorses feeling hopeless, guilt related to recent relapse. She hopes that DCF may consider reunification. Pt reports sle slept well. Some anxiety, less flashbacks. She has been visible in the unit, attends some groups. No VH/AH. Passive SI. Medication Compliance: Yes Side effects from medications: No Review of Systems Review of Systems Constitutional : No Fever, No Chills ENT/Mouth : No Ear Pain, No Nasal Congestion, No sore throat Eyes: No Eye Pain, No Swelling, No Redness Cardiovascular : No Chest Pain, No SOB Respiratory : No Cough, No Sputum, No Dyspnea Gastrointestinal : No Nausea, No Vomiting, No Diarrhea, No Hematochezia, No Eriberto na Genitourinary : No Dysuria, No Urinary Frequency, No Hematuria Musculoskeletal : No Myalgias Skin : No Skin Lesions, No rash Neuro : No Weakness, No Numbness, No Paresthesias, No Dizziness, No Headache Psych : positive Anxiety, positive Depression, positive SI/HI All other systems reviewed and are negative Yes all other systems are reviewed and are negative Mental Status Exam Mental Status Exam Narrative: Appearance: casually groomed, arms with superficial cuts, restless/anxious, crying intermittently. good hygiene Behavior: cooperative Psychomotor: no agitation or retardation noted Speech: clear, normal rate/rhythm/volume, spontaneous TP: linear TC: no signs of psychosis, feeling hopeless Mood: depressed Affect: congruent, blunted SI: active with plan to OD but denies any intent on unit HI: none VH/AH: none Insight/judgment: fair x 2. Memory/cog: alert, oriented x 3 grossly intact to conversational testing. Diagnostics Vital Signs (24Hr): Vital Signs - 24 hr 04/19/21 18:00 04/20/21 08:35 04/20/21 09:56 Temperature 98.0 F 98.7 F Pulse Rate 81 86 91 Respiratory Rate 16 17 Blood Pressure 116/61 102/54 L 130/64 Pulse Oximetry 97 96 04/20/21 15:18 Temperature Pulse Rate 86 Respiratory Rate Blood Pressure 123/76 Pulse Oximetry BMI result Body Mass Index 46.7 Labs Results: 04/14/21 22:12 04/14/21 22:12 Labs: Laboratory Results - last 48 hr 04/19/21 04/19/21 04/19/21 08:19 08:19 08:19 Estimat Average Glucose 111 Hemoglobin A1c % 5.5 Triglycerides 266 Cholesterol 176 LDL Cholesterol, Calc 86 HDL Cholesterol 37 Vitamin B12 332 Folate 8.6 TSH 1.47 Medications Medications Current Medications Acetaminophen (Acetaminophen 325 Mg Tablet) 325 mg PO TID [facility] Last Admin: 04/20/21 15:22 Dose: 325 mg Documented by: Al Hydroxide/Mg Hydroxide (Magnesium Hydrox/Alum Hydrox 30 Ml Oral.Susp) 30 ml PO Q6H PRN PRN Reason: Heartburn/Nausea Atenolol (Atenolol 25 Mg Tablet) 25 mg PO DAILY [facility]; Protocol Last Admin: 04/20/21 09:57 Dose: 25 mg Documented by: Bupropion HCl (Bupropion Hcl Xl 150 Mg Tab.Er.24h) 150 mg PO DAILY [facility] Last Admin: 04/20/21 08:52 Dose: 150 mg Documented by: Bupropion HCl (Bupropion Hcl Xl 300 Mg Tab.Er.24h) 300 mg PO DAILY [facility] Last Admin: 04/20/21 08:52 Dose: 300 mg Documented by: Clonazepam (Clonazepam 0.5 Mg Tablet) 0.5 mg PO DAILY PRN PRN Reason: Anxiety Clonazepam (Clonazepam 1 Mg Tablet) 1 mg PO BEDTIME PRN PRN Reason: anxiety/sleep Clonidine HCl (Clonidine Hcl 0.1 Mg Tablet) 0.1 mg PO TID PRN; Protocol PRN Reason: anxiety unresponsive to Hydroxyzine Last Admin: 04/20/21 15:23 Dose: 0.1 mg Documented by: Gabapentin (Gabapentin 600 Mg Tablet) 600 mg PO TID [facility] Last Admin: 04/20/21 15:21 Dose: 600 mg Documented by: Hydroxyzine HCl (Hydroxyzine Hcl 50 Mg Tablet) 50 mg PO Q6H PRN PRN Reason: Anxiety Last Admin: 04/20/21 08:52 Dose: 50 mg Documented by: Lurasidone HCl (Lurasidone Hcl 80 Mg Tablet) 80 mg PO BEDTIME [facility] Last Admin: 04/19/21 20:22 Dose: 80 mg Documented by: Magnesium Hydroxide (Milk Of Magnesia 30 Ml Oral.Susp) 30 ml PO DAILY PRN PRN Reason: Constipation Methadone HCl (Methadone Hcl 20 Mg/2 Ml Oral.Conc) 170 mg PO DAILY [facility] Last Admin: 04/20/21 08:55 Dose: 170 mg Documented by: Nicotine Polacrilex (Nicotine Polacrilex 2 Mg Gum) 2 mg BUCCAL Q2H PRN PRN Reason: Nicotine Cravings Patient Own Medication ( Lisdexamfetamine [ Vyvanse] 60 Mg Capsule) 1 each PO DAILY [facility] Last Admin: 04/20/21 09:57 Dose: 1 each Documented by: Patient Own Medication ( Terbinafine 250 Mg) 1 each PO BEDTIME [facility] Omeprazole (Omeprazole 20 Mg Capsule.Dr) 20 mg PO BID@0630,1630 [facility] Last Admin: 04/20/21 08:52 Dose: 20 mg Documented by: Pharmacy Consult (Consult Rx Perform Med Rec) 1 each MISCELLANE ONCE PRN PRN Reason: Consult order Quetiapine Fumarate (Quetiapine Fumarate 25 Mg Tablet) 75 mg PO BEDTIME [facility] Last Admin: 04/19/21 20:21 Dose: 75 mg Documented by: Trazodone HCl (Trazodone Hcl 50 Mg Tablet) 50 mg PO BEDTIME PRN PRN Reason: Insomnia Last Admin: 04/19/21 20:22 Dose: 50 mg Documented by: Allergies Allergies Allergy/AdvReac Type Severity Reaction Status Date / Time acetaminophen Allergy Mild UNKNOWN Verified 04/14/21 21:58 [From Darvocet-N 50] meperidine [From Demerol] Allergy Mild UNKNOWN Verified 04/14/21 21:58 Penicillins Allergy Mild UNKNOWN Verified 04/14/21 21:58 propoxyphene Allergy Mild UNKNOWN Verified 04/14/21 21:58 [From Darvocet-N 50] Sulfa (Sulfonamide Allergy Mild UNKNOWN, Verified 04/14/21 21:58 Antibiotics) HIVES penicillin V Allergy Unknown SWELLING Verified 12/28/16 00:00 Assessment & Plan Assessment & Plan (1) Bipolar 2 disorder, major depressive episode: Status: Acute Code(s): F31.81 - Bipolar II disorder (2) Opioid use disorder, moderate, in early remission: Status: Acute Code(s): F11.21 - Opioid dependence, in remission (3) PTSD (post-traumatic stress disorder): Status: Acute Code(s): F43.10 - Post-traumatic stress disorder, unspecified Plan Ms. Das is a 31 year-old woman with hx of PTSD, Bipolar 2 Disorder, opioid use disorder in recovery who self presented to [facility] ED reporting SI with plan to OD. She has been in [facility]- residential substance use tx program for about 8 month s- recently relapsed. PLAN 1. switch ativan to clonazepam. pt in controlled environment in program where there is less potential for abuse or misuse. 2. continue all other medications- pt wants to talk with termite control representative provider to discuss other med changes. 3. Obtain collateral information 4. Aftercare planning. I spent minutes with the patient and/or on the patient floor today, greater than?50% of which was spent counseling/coordinating care. Reason for contiued inpatient stay Substantial Risk for: harm to self
[2021-04-20 15:18] VITALS: BP 123/76; PULSE 86
[2021-04-20] MEDS: clonazePAM 1 MG TABLET PO ×2 (15:22→20:14)
[2021-04-20] MEDS: cloNIDine HCL 0.1 MG TABLET PO (15:23)
[2021-04-20 20:10] VITALS: BP 106/57; PULSE 88; TEMP 36.8; O2SAT 96
[2021-04-20] MEDS: Lurasidone HCl 80 MG TABLET PO (20:15)
[2021-04-20] MEDS: QUEtiapine Fumarate 25 MG TABLET 75 MG PO (20:15)
[2021-04-21 08:24] VITALS: BP 106/63; PULSE 94; RESP 16; TEMP 36.2; O2SAT 97
[2021-04-21] MEDS: buPROPion HCl XL 150 MG TAB.ER.24H PO (08:25)
[2021-04-21] MEDS: atenoloL 25 MG TABLET PO (08:25)
[2021-04-21] MEDS: Gabapentin 600 MG TABLET PO ×3 (08:25→21:10)
[2021-04-21] MEDS: Omeprazole 20 MG CAPSULE.DR PO ×2 (08:25→15:00)
[2021-04-21] MEDS: Acetaminophen 325 MG TABLET PO ×3 (08:25→21:07)
[2021-04-21] MEDS: buPROPion HCl XL 300 MG TAB.ER.24H PO (08:25)
[2021-04-21] MEDS: clonazePAM 0.5 MG TABLET PO ×2 (08:30→13:17)
[2021-04-21] MEDS: hydrOXYzine HCL 50 MG TABLET PO ×3 (08:30→21:07)
[2021-04-21] MEDS: methADONE HCl 20 MG/2 ML ORAL.CONC 170 MG PO (09:19)
--- NOTE | 2021-04-21 09:23 | HO.PSYCHPN ---
Subjective Subjective Date of Service: 04/20/21 Reason For Visit: Crisis Subjective Notes: Conditional Voluntary Interim History: Pt slightly calmer after news that daughter may be put in adoption. Pt reports DCF worker told her that there may be a chance for reunification of she does everything asked by DCF. Pt reports anxious mood. She does report clonazepam helpful. We discussed that feelings of anxiety, sadness will not be eliminated and goal is not to numb feeling with clonazepam as pt requesting increase in dose. We discussed risks, benefit of prescribing clonazepam- only given the fact that she is in program and these medications are managed by [facility] in [place] and risk of misuse or abuse are less. Pt understands this. Pt continues to endorse depressed mood, anhedonia, passive Si. Pt encouraged to attend groups. Medication Compliance: Yes Side effects from medications: No Attending Groups: Intermittent Review of Systems Review of Systems Constitutional : No Fever, No Chills ENT/Mouth : No Ear Pain, No Nasal Congestion, No sore throat Eyes: No Eye Pain, No Swelling, No Redness Cardiovascular : No Chest Pain, No SOB Respiratory : No Cough, No Sputum, No Dyspnea Gastrointestinal : No Nausea, No Vomiting, No Diarrhea, No Hematochezia, No Melena Genitourinary : No Dysuria, No Urinary Frequency, No Hematuria Musculoskeletal : No Myalgias Skin : No Skin Lesions, No rash Neuro : No Weakness, No Numbness, No Paresthesias, No Dizziness, No Headache Psych : positive Anxiety, positive Depression, positive SI/HI All other systems reviewed and are negative Yes all other systems are reviewed and are negative Mental Status Exam Mental Status Exam Narrative: Appearance: casually groomed, arms with superficial cuts, restless/anxious, crying intermittently. good hygiene Behavior: cooperative Psychomotor: no agitation or retardation noted Speech: clear, normal rate/rhythm/volume, spontaneous TP: linear TC: no signs of psychosis, feeling hopeless Mood: depressed Affect: congruent, blunted SI: active with plan to OD but denies any intent on unit HI: none VH/AH: none Insight/judgment: fair x 2. Memory/cog: alert, oriented x 3 grossly intact to conversational testing. Diagnostics Vital Signs (24Hr): Vital Signs - 24 hr 04/20/21 15:18 04/20/21 20:10 04/21/21 08:24 Temperature 98.2 F 97.2 F Pulse Rate 86 88 94 Respiratory Rate 16 Blood Pressure 123/76 106/57 L 106/63 Pulse Oximetry 96 97 BMI result Body Mass Index 46.7 Labs Results: 04/14/21 22:12 04/14/21 22:12 Medications Medications Current Medications Acetaminophen (Acetaminophen 325 Mg Tablet) 325 mg PO TID [facility] Last Admin: 04/21/21 08:25 Dose: 325 mg Documented by: Al Hydroxide/Mg Hydroxide (Magnesium Hydrox/Alum Hydrox 30 Ml Oral.Susp) 30 ml PO Q6H PRN PRN Reason: Heartburn/Nausea Atenolol (Atenolol 25 Mg Tablet) 25 mg PO DAILY [facility]; Protocol Last Admin: 04/21/21 08:25 Dose: 25 mg Documented by: Bupropion HCl (Bupropion Hcl Xl 150 Mg Tab.Er.24h) 150 mg PO DAILY [facility] Last Admin: 04/21/21 08:25 Dose: 150 mg Documented by: Bupropion HCl (Bupropion Hcl Xl 300 Mg Tab.Er.24h) 300 mg PO DAILY [facility] Last Admin: 04/21/21 08:25 Dose: 300 mg Documented by: Clonazepam (Clonazepam 0.5 Mg Tablet) 0.5 mg PO DAILY PRN PRN Reason: Anxiety Last Admin: 04/21/21 08:30 Dose: 0.5 mg Documented by: Clonazepam (Clonazepam 1 Mg Tablet) 1 mg PO BEDTIME PRN PRN Reason: anxiety/sleep Last Admin: 04/20/21 20:14 Dose: 1 mg Documented by: Clonidine HCl (Clonidine Hcl 0.1 Mg Tablet) 0.1 mg PO TID PRN; Protocol PRN Reason: anxiety unresponsive to Hydroxyzine Last Admin: 04/20/21 15:23 Dose: 0.1 mg Documented by: Gabapentin (Gabapentin 600 Mg Tablet) 600 mg PO TID [facility] Last Admin: 04/21/21 08:25 Dose: 600 mg Documented by: Hydroxyzine HCl (Hydroxyzine Hcl 50 Mg Tablet) 50 mg PO Q6H PRN PRN Reason: Anxiety Last Admin: 04/21/21 08:30 Dose: 50 mg Documented by: Lurasidone HCl (Lurasidone Hcl 80 Mg Tablet) 80 mg PO BEDTIME [facility] Last Admin: 04/20/21 20:15 Dose: 80 mg Documented by: Magnesium Hydroxide (Milk Of Magnesia 30 Ml Oral.Susp) 30 ml PO DAILY PRN PRN Reason: Constipation Methadone HCl (Methadone Hcl 20 Mg/2 Ml Oral.Conc) 170 mg PO DAILY [facility] Last Admin: 04/21/21 09:19 Dose: 170 mg Documented by: Nicotine Polacrilex (Nicotine Polacrilex 2 Mg Gum) 2 mg BUCCAL Q2H PRN PRN Reason: Nicotine Cravings Patient Own Medication ( Lisdexamfetamine [ Vyvanse] 60 Mg Capsule) 1 each PO DAILY [facility] Last Admin: 04/21/21 08:25 Dose: 1 each Documented by: Patient Own Medication ( Terbinafine 250 Mg) 1 each PO BEDTIME [facility] Last Admin: 04/20/21 23:40 Dose: Not Given Documented by: Omeprazole (Omeprazole 20 Mg Capsule.) 20 mg PO BID@0630,1630 [facility] Last Admin: 04/21/21 08:25 Dose: 20 mg Documented by: Pharmacy Consult (Consult Rx Perform Med Rec) 1 each MISCELLANE ONCE PRN PRN Reason: Consult order Quetiapine Fumarate (Quetiapine Fumarate 25 Mg Tablet) 75 mg PO BEDTIME [facility] Last Admin: 04/20/21 20:15 Dose: 75 mg Documented by: Trazodone HCl (Trazodone Hcl 50 Mg Tablet) 50 mg PO BEDTIME PRN PRN Reason: Insomnia Last Admin: 04/19/21 20:22 Dose: 50 mg Documented by: Allergies Allergies Allergy/AdvReac Type Severity Reaction Status Date / Time acetaminophen Allergy Mild UNKNOWN Verified 04/14/21 21:58 [From Darvocet-N 50] meperidine [From Demerol] Allergy Mild UNKNOWN Verified 04/14/21 21:58 Penicillins Allergy Mild UNKNOWN Verified 04/14/21 21:58 propoxyphene Allergy Mild UNKNOWN Verified 04/14/21 21:58 [From Darvocet-N 50] Sulfa (Sulfonamide Allergy Mild UNKNOWN, Verified 04/14/21 21:58 Antibiotics) HIVES penicillin V Allergy Unknown SWELLING Verified 12/28/16 00:00 Assessment & Plan Assessment & Plan (1) Bipolar 2 disorder, major depressive episode: Status: Acute Code(s): F31.81 - Bipolar II disorder (2) Opioid use disorder, moderate, in early remission: Status: Acute Code(s): F11.21 - Opioid dependence, in remission (3) PTSD (post-traumatic stress disorder): Status: Acute Code(s): F43.10 - Post-traumatic stress disorder, unspecified Plan Ms. Das is a 31 year-old woman with hx of PTSD, Bipolar 2 Disorder, opioid use disorder in recovery who self presented to [facility] ED reporting SI with plan to OD. She has been in [facility]- residential substance use tx program for about 8 months- recently relapsed. PLAN 1. switch ativan to clonazepam. pt in controlled environment in program where there is less potential for abuse or misuse. 2. continue all other medications- pt wants to talk with [facility] provider to discuss other med changes. 3. Obtain collateral information 4. Aftercare planning. I spent minutes with the patient and/or on the patient floor today, greater than?50% of which was spent counseling/coordinating care. Reason for contiued inpatient stay Substantial Risk for: harm to self
[2021-04-21 12:18] VITALS: BMI 47.9
[2021-04-21 21:00] VITALS: BP 104/64; PULSE 78; TEMP 36.7; O2SAT 98
[2021-04-21] MEDS: QUEtiapine Fumarate 25 MG TABLET 75 MG PO (21:06)
[2021-04-21] MEDS: traZODone HCL 50 MG TABLET PO (21:09)
[2021-04-21] MEDS: Lurasidone HCl 80 MG TABLET PO (21:09)
[2021-04-21] MEDS: clonazePAM 1 MG TABLET PO (21:44)
[2021-04-22 06:00] VITALS: BP 116/64; PULSE 100; RESP 18; O2SAT 95
[2021-04-22] MEDS: cloNIDine HCL 0.1 MG TABLET PO ×2 (07:25→20:37)
[2021-04-22] MEDS: hydrOXYzine HCL 50 MG TABLET PO ×2 (07:25→20:36)
[2021-04-22] MEDS: Acetaminophen 325 MG TABLET PO ×3 (07:25→20:36)
[2021-04-22] MEDS: Omeprazole 20 MG CAPSULE.DR PO ×2 (07:25→17:57)
[2021-04-22] MEDS: buPROPion HCl XL 150 MG TAB.ER.24H PO (08:22)
[2021-04-22] MEDS: Gabapentin 600 MG TABLET PO ×3 (08:22→20:37)
[2021-04-22] MEDS: atenoloL 25 MG TABLET PO (08:22)
[2021-04-22] MEDS: buPROPion HCl XL 300 MG TAB.ER.24H PO (08:22)
[2021-04-22] MEDS: methADONE HCl 20 MG/2 ML ORAL.CONC 170 MG PO (08:23)
[2021-04-22] MEDS: clonazePAM 1 MG TABLET PO ×2 (10:00→20:38)
[2021-04-22] MEDS: polyethylene glycoL 3350 17 GM POWD.PACK PO (13:13)
--- NOTE | 2021-04-22 13:38 | P.PNPSI_ITS ---
Subjective Subjective Date of Service: 04/22/21 Reason For Visit: Crisis Subjective Notes: Conditional Voluntary Interim History: Pt reports she feels calmer in that she is less overwhelmed. She is worried about not being able to reunify with daughter. She reports less anxious mood, thinks clonazepam better twice a day; one dose in AM and another at bedtime, not earlier than that. We discussed at length that dose should not be increase, some degree of anxiety and sadness expected due to current stressors, that goal is not to numb feeling but also help with medication feel more stable and able to see options. Pt endorses depressed mood, some anhedonia, less hopeless. No SI/HI. Pt visible in the unit attends assigned groups. Medication Compliance: Yes Side effects from medications: No Review of Systems Review of Systems Constitutional : No Fever, No Chills ENT/Mouth : No Ear Pain, No Nasal Congestion, No sore throat Eyes: No Eye Pain, No Swelling, No Redness Cardiovascular : No Chest Pain, No SOB Respiratory : No Cough, No Sputum, No Dyspnea Gastrointestinal : No Nausea, No Vomiting, No Diarrhea, No Hematochezia, No Melena Genitourinary : No Dysuria, No Urinary Frequency, No Hematuria Musculoskeletal : No Myalgias Skin : No Skin Lesions, No rash Neuro : No Weakness, No Numbness, No Paresthesias, No Dizziness, No Headache Psych : positive Anxiety, positive Depression, positive SI/HI All other systems reviewed and are negative Yes all other systems are reviewed and are negative Mental Status Exam Mental Status Exam Narrative: Appearance: casually groomed, arms with superficial cuts, restless/anxious, crying intermittently. good hygiene Behavior: cooperative Psychomotor: no agitation or retardation noted Speech: clear, normal rate/rhythm/volume, spontaneous TP: linear TC: no signs of psychosis, feeling hopeless Mood: less depressed Affect: congruent, slightly brighter SI: denies HI: none VH/AH: none Insight/judgment: fair x 2. Memory/cog: alert, oriented x 3 grossly intact to conversational testing. Diagnostics Vital Signs (24Hr): Vital Signs - 24 hr 04/21/21 21:00 04/22/21 06:00 Temperature 98.0 F Pulse Rate 78 100 Respiratory Rate 18 Blood Pressure 104/64 116/64 Pulse Oximetry 98 95 BMI result Body Mass Index 47.9 Labs Results: 04/14/21 22:12 04/14/21 22:12 Medications Medications Current Medications Acetaminophen (Acetaminophen 325 Mg Tablet) 325 mg PO TID [facility] Last Admin: 04/22/21 07:25 Dose: 325 mg Documented by: Al Hydroxide/Mg Hydroxide (Magnesium Hydrox/Alum Hydrox 30 Ml Oral.Susp) 30 ml PO Q6H PRN PRN Reason: Heartburn/Nausea Atenolol (Atenolol 25 Mg Tablet) 25 mg PO DAILY [facility]; Protocol Last Admin: 04/22/21 08:22 Dose: 25 mg Documented by: Bisacodyl (Bisacodyl 5 Mg Tablet.Dr) 10 mg PO BEDTIME PRN PRN Reason: Constipation Bupropion HCl (Bupropion Hcl Xl 150 Mg Tab.Er.24h) 150 mg PO DAILY [facility] Last Admin: 04/22/21 08:22 Dose: 150 mg Documented by: Bupropion HCl (Bupropion Hcl Xl 300 Mg Tab.Er.24h) 300 mg PO DAILY [facility] Last Admin: 04/22/21 08:22 Dose: 300 mg Documented by: Clonazepam (Clonazepam 1 Mg Tablet) 1 mg PO BID PRN PRN Reason: Anxiety Clonidine HCl (Clonidine Hcl 0.1 Mg Tablet) 0.1 mg PO TID PRN; Protocol PRN Reason: anxiety unresponsive to Hydroxyzine Last Admin: 04/22/21 07:25 Dose: 0.1 mg Documented by: Gabapentin (Gabapentin 600 Mg Tablet) 600 mg PO TID [facility] Last Admin: 04/22/21 08:22 Dose: 600 mg Documented by: Hydroxyzine HCl (Hydroxyzine Hcl 50 Mg Tablet) 50 mg PO Q6H PRN PRN Reason: Anxiety Last Admin: 04/22/21 07:25 Dose: 50 mg Documented by: Lurasidone HCl (Lurasidone Hcl 40 Mg Tablet) 120 mg PO DAILY@1700 [facility] Magnesium Hydroxide (Milk Of Magnesia 30 Ml Oral.Susp) 30 ml PO DAILY PRN PRN Reason: Constipation Methadone HCl (Methadone Hcl 20 Mg/2 Ml Oral.Conc) 170 mg PO DAILY [facility] Last Admin: 04/22/21 08:23 Dose: 170 mg Documented by: Nicotine Polacrilex (Nicotine Polacrilex 2 Mg Gum) 2 mg BUCCAL Q2H PRN PRN Reason: Nicotine Cravings Patient Own Medication ( Lisdexamfetamine [ Vyvanse] 60 Mg Capsule) 1 each PO DAILY [facility] Last Admin: 04/22/21 08:22 Dose: 1 each Documented by: Patient Own Medication ( Terbinafine 250 Mg) 1 each PO BEDTIME [facility] Last Admin: 04/21/21 21:12 Dose: 1 each Documented by: Omeprazole (Omeprazole 20 Mg Capsule.) 20 mg PO BID@0630,1630 [facility] Last Admin: 04/22/21 07:25 Dose: 20 mg Documented by: Pharmacy Consult (Consult Rx Perform Med Rec) 1 each MISCELLANE ONCE PRN PRN Reason: Consult order Polyethylene Glycol (Polyethylene Glycol 3350 17 Gm Powd.Pack) 17 gm PO DAILY PRN PRN Reason: Constipation Quetiapine Fumarate (Quetiapine Fumarate 25 Mg Tablet) 75 mg PO BEDTIME [facility] Last Admin: 04/21/21 21:06 Dose: 75 mg Documented by: Trazodone HCl (Trazodone Hcl 50 Mg Tablet) 50 mg PO BEDTIME PRN PRN Reason: Insomnia Last Admin: 04/21/21 21:09 Dose: 50 mg Documented by: Allergies Allergies Allergy/AdvReac Type Severity Reaction Status Date / Time acetaminophen Allergy Mild UNKNOWN Verified 04/14/21 21:58 [From Darvocet-N 50] meperidine [From Demerol] Allergy Mild UNKNOWN Verified 04/14/21 21:58 Penicillins Allergy Mild UNKNOWN Verified 04/14/21 21:58 propoxyphene Allergy Mild UNKNOWN Verified 04/14/21 21:58 [From Darvocet-N 50] Sulfa (Sulfonamide Allergy Mild UNKNOWN, Verified 04/14/21 21:58 Antibiotics) HIVES penicillin V Allergy Unknown SWELLING Verified 12/28/16 00:00 Assessment & Plan Assessment & Plan (1) Bipolar 2 disorder, major depressive episode: Status: Acute Code(s): F31.81 - Bipolar II disorder (2) Opioid use disorder, moderate, in early remission: Status: Acute Code(s): F11.21 - Opioid dependence, in remission (3) PTSD (post-traumatic stress disorder): Status: Acute Code(s): F43.10 - Post-traumatic stress disorder, unspecified Plan Ms. Das is a 31 year-old woman with hx of PTSD, Bipolar 2 Disorder, opioid use disorder in recovery who self presented to [facility] ED reporting SI with plan to OD. She has been in [facility]- residential substance use tx program for about 8 months- recently relapsed. PLAN 1. Switch ativan to clonazepam. pt in controlled environment in program where there is less potential for abuse or misuse but will discuss in more detail with both [facility] and OP psych provider, Thais Porter. 2. continue all other medications- pt wants to talk with tank terminal gauger provider to discuss other med changes. 3. Obtain collateral information 4. Aftercare planning. I spent ____25__ minutes with the patient and/or on the patient floor today, greater than?50% of which was spent counseling/coordinating care. Reason for contiued inpatient stay Substantial Risk for: harm to self
[2021-04-22] MEDS: Lurasidone HCl 40 MG TABLET 120 MG PO (17:57)
[2021-04-22 18:00] VITALS: BP 110/58; PULSE 80; RESP 18; TEMP 36.5; O2SAT 96
[2021-04-22] MEDS: QUEtiapine Fumarate 25 MG TABLET 75 MG PO (20:37)
[2021-04-23] MEDS: Omeprazole 20 MG CAPSULE.DR PO ×2 (06:58→17:50)
[2021-04-23 09:11] VITALS: BP 118/59; PULSE 95; RESP 18; TEMP 36.4; O2SAT 97
[2021-04-23] MEDS: Gabapentin 600 MG TABLET PO ×3 (09:18→20:19)
[2021-04-23] MEDS: Acetaminophen 325 MG TABLET PO ×2 (09:18→20:20)
[2021-04-23] MEDS: buPROPion HCl XL 150 MG TAB.ER.24H PO (09:18)
[2021-04-23] MEDS: buPROPion HCl XL 300 MG TAB.ER.24H PO (09:19)
[2021-04-23] MEDS: atenoloL 25 MG TABLET PO (09:19)
[2021-04-23] MEDS: clonazePAM 1 MG TABLET PO ×2 (09:20→20:19)
[2021-04-23] MEDS: methADONE HCl 20 MG/2 ML ORAL.CONC 170 MG PO (09:41)
[2021-04-23] MEDS: Acetaminophen 325 MG TABLET 650 MG PO (15:10)
[2021-04-23] MEDS: cloNIDine HCL 0.1 MG TABLET PO (15:10)
[2021-04-23] MEDS: polyethylene glycoL 3350 17 GM POWD.PACK PO (15:10)
[2021-04-23] MEDS: hydrOXYzine HCL 50 MG TABLET PO (15:11)
[2021-04-23 15:23] VITALS: BP 121/86; PULSE 89; RESP 20; O2SAT 96
[2021-04-23] MEDS: Lurasidone HCl 40 MG TABLET 120 MG PO (17:50)
--- NOTE | 2021-04-23 18:54 | P.PNPSI_ITS ---
Subjective Subjective Date of Service: 04/23/21 Reason For Visit: Crisis Interim History: pt reports feeling depressed, saying re SI, if i could, i would, but immediately denies any intent or plan to do so while in hospital. feels klonopin has been helpful. no requests at the moment. per staff, more depressed (5/10), +SIBI, no intent or plan. got bad news from [facility] re child custody, which has affected her mood substantially. Mental Status Exam Mental Status Exam Narrative: Appearance: casually groomed. good hygiene Behavior: cooperative Psychomotor: no agitation or retardation noted Speech: clear, normal rate/rhythm/volume, spontaneous TP: linear TC: no signs of psychosis, feeling hopeless Mood: depressed Affect: congruent SI: + HI: none expressed VH/AH: none expressed Diagnostics Vital Signs (24Hr): Vital Signs - 24 hr 04/23/21 09:11 04/23/21 15:23 Temperature 97.5 F Pulse Rate 95 89 Respiratory Rate 18 20 Blood Pressure 118/59 L 121/86 Pulse Oximetry 97 96 BMI result Body Mass Index 47.9 Labs Results: 04/14/21 22:12 04/14/21 22:12 Medications Medications Current Medications Acetaminophen (Acetaminophen 325 Mg Tablet) 325 mg PO TID [facility] Last Admin: 04/23/21 15:15 Dose: Not Given Documented by: Acetaminophen (Acetaminophen 325 Mg Tablet) 650 mg PO Q4H PRN PRN Reason: abd pain Last Admin: 04/23/21 15:10 Dose: 650 mg Documented by: Al Hydroxide/Mg Hydroxide (Magnesium Hydrox/Alum Hydrox 30 Ml Oral.Susp) 30 ml PO Q6H PRN PRN Reason: Heartburn/Nausea Atenolol (Atenolol 25 Mg Tablet) 25 mg PO DAILY [facility]; Protocol Last Admin: 04/23/21 09:19 Dose: 25 mg Documented by: Bisacodyl (Bisacodyl 5 Mg Tablet.Dr) 10 mg PO BEDTIME PRN PRN Reason: Constipation Bupropion HCl (Bupropion Hcl Xl 150 Mg Tab.Er.24h) 150 mg PO DAILY [facility] Last Admin: 04/23/21 09:18 Dose: 150 mg Documented by: Bupropion HCl (Bupropion Hcl Xl 300 Mg Tab.Er.24h) 300 mg PO DAILY [facility] Last Admin: 04/23/21 09:19 Dose: 300 mg Documented by: Clonazepam (Clonazepam 1 Mg Tablet) 1 mg PO BID PRN PRN Reason: Anxiety Last Admin: 04/23/21 09:20 Dose: 1 mg Documented by: Clonidine HCl (Clonidine Hcl 0.1 Mg Tablet) 0.1 mg PO TID PRN; Protocol PRN Reason: anxiety unresponsive to Hydroxyzine Last Admin: 04/23/21 15:10 Dose: 0.1 mg Documented by: Gabapentin (Gabapentin 600 Mg Tablet) 600 mg PO TID [facility] Last Admin: 04/23/21 15:10 Dose: 600 mg Documented by: Hydroxyzine HCl (Hydroxyzine Hcl 50 Mg Tablet) 50 mg PO Q6H PRN PRN Reason: Anxiety Last Admin: 04/23/21 15:11 Dose: 50 mg Documented by: Lurasidone HCl (Lurasidone Hcl 40 Mg Tablet) 120 mg PO DAILY@1700 [facility] Last Admin: 04/23/21 17:50 Dose: 120 mg Documented by: Magnesium Hydroxide (Milk Of Magnesia 30 Ml Oral.Susp) 30 ml PO DAILY PRN PRN Reason: Constipation Methadone HCl (Methadone Hcl 20 Mg/2 Ml Oral.Conc) 170 mg PO DAILY [facility] Last Admin: 04/23/21 09:41 Dose: 170 mg Documented by: Nicotine Polacrilex (Nicotine Polacrilex 2 Mg Gum) 2 mg BUCCAL Q2H PRN PRN Reason: Nicotine Cravings Patient Own Medication ( Lisdexamfetamine [ Vyvanse] 60 Mg Capsule) 1 each PO DAILY [facility] Last Admin: 04/23/21 09:17 Dose: 1 each Documented by: Patient Own Medication ( Terbinafine 250 Mg) 1 each PO BEDTIME [facility] Last Admin: 04/22/21 21:00 Dose: 1 each Documented by: Omeprazole (Omeprazole 20 Mg Capsule.) 20 mg PO BID@0630,1630 [facility] Last Admin: 04/23/21 17:50 Dose: 20 mg Documented by: Pharmacy Consult (Consult Rx Perform Med Rec) 1 each MISCELLANE ONCE PRN PRN Reason: Consult order Polyethylene Glycol (Polyethylene Glycol 3350 17 Gm Powd.Pack) 17 gm PO DAILY PRN PRN Reason: Constipation Last Admin: 04/23/21 15:10 Dose: 17 gm Documented by: Quetiapine Fumarate (Quetiapine Fumarate 25 Mg Tablet) 75 mg PO BEDTIME [facility] Last Admin: 04/22/21 20:37 Dose: 75 mg Documented by: Trazodone HCl (Trazodone Hcl 50 Mg Tablet) 50 mg PO BEDTIME PRN PRN Reason: Insomnia Last Admin: 04/21/21 21:09 Dose: 50 mg Documented by: Allergies Allergies Allergy/AdvReac Type Severity Reaction Status Date / Time acetaminophen Allergy Mild UNKNOWN Verified 04/14/21 21:58 [From Darvocet-N 50] meperidine [From Demerol] Allergy Mild UNKNOWN Verified 04/14/21 21:58 Penicillins Allergy Mild UNKNOWN Verified 04/14/21 21:58 propoxyphene Allergy Mild UNKNOWN Verified 04/14/21 21:58 [From Darvocet-N 50] Sulfa (Sulfonamide Allergy Mild UNKNOWN, Verified 04/14/21 21:58 Antibiotics) HIVES penicillin V Allergy Unknown SWELLING Verified 12/28/16 00:00 Assessment & Plan Assessment & Plan (1) Bipolar 2 disorder, major depressive episode: Status: Acute Code(s): F31.81 - Bipolar II disorder (2) Opioid use disorder, moderate, in early remission: Status: Acute Code(s): F11.21 - Opioid dependence, in remission (3) PTSD (post-traumatic stress disorder): Status: Acute Code(s): F43.10 - Post-traumatic stress disorder, unspecified Plan Ms. Das is a 31 year-old woman with hx of PTSD, Bipolar 2 Disorder, opioid use disorder in recovery who self presented to [facility] [facility] reporting SI with plan to OD. She has been in [facility] residential substance use tx program for about 8 months- recently relapsed. PLAN 1. Switch ativan to clonazepam. pt in controlled environment in program where there is less potential for abuse or misuse but will discuss in more detail with both staff at [facility] and OP psych provider, Thais Porter. 2. continue all other medications- pt wants to talk with long distance operator provider to discuss other med changes. 3. Obtain collateral information 4. Aftercare planning. I spent minutes with the patient and/or on the patient floor today, greater than?50% of which was spent counseling/coordinating care. Reason for contiued inpatient stay Substantial Risk for: harm to self
[2021-04-23 20:03] VITALS: BP 120/74; PULSE 79; RESP 17; TEMP 36.5; O2SAT 97
[2021-04-23] MEDS: QUEtiapine Fumarate 25 MG TABLET 75 MG PO (20:19)
[2021-04-23] MEDS: traZODone HCL 50 MG TABLET PO (20:20)
[2021-04-24 08:30] VITALS: BP 100/56; PULSE 84; RESP 20; TEMP 36.7; O2SAT 96
[2021-04-24] MEDS: buPROPion HCl XL 150 MG TAB.ER.24H PO (08:35)
[2021-04-24] MEDS: Acetaminophen 325 MG TABLET 650 MG PO ×2 (08:35→21:43)
[2021-04-24] MEDS: buPROPion HCl XL 300 MG TAB.ER.24H PO (08:36)
[2021-04-24] MEDS: Gabapentin 600 MG TABLET PO ×3 (08:37→21:35)
[2021-04-24] MEDS: atenoloL 25 MG TABLET PO (08:37)
[2021-04-24] MEDS: Omeprazole 20 MG CAPSULE.DR PO ×2 (08:37→17:44)
[2021-04-24] MEDS: methADONE HCl 20 MG/2 ML ORAL.CONC 170 MG PO (10:40)
[2021-04-24] MEDS: Acetaminophen 325 MG TABLET PO ×3 (10:45→21:35)
[2021-04-24] MEDS: clonazePAM 1 MG TABLET PO ×2 (10:45→21:34)
[2021-04-24 14:45] VITALS: BP 99/61; PULSE 86; RESP 18; O2SAT 96
--- NOTE | 2021-04-24 15:03 | P.PNPSI_ITS ---
Subjective Subjective Date of Service: 04/24/21 Reason For Visit: Crisis Interim History: pt expresses concern that her depression has not improved. educated re usual timecourse of antidepressant response. she does feel her anxiety has improved, however. tylenol orders reviewed, and she is happy with how they are currently written. states she would like to taper off of seroquel completely due to weight gain, so seroquel decreased to 50 mg as of tonight. willing to add clonidine for sleep and nightmares. says she cannot take prazosin bcse it paradoxically makes her nightmares worse. per staff, concerned depression not better but anxiety is. Mental Status Exam Mental Status Exam Narrative: Appearance: casually groomed. good hygiene Behavior: cooperative Psychomotor: no agitation or retardation noted Speech: clear, normal rate/rhythm/volume, spontaneous TP: linear TC: no signs of psychosis, feeling hopeless Mood: depressed Affect: congruent SI: none expressed HI: none expressed VH/AH: none expressed Diagnostics Vital Signs (24Hr): Vital Signs - 24 hr 04/23/21 15:23 04/23/21 20:03 04/24/21 08:30 Temperature 97.7 F 98.0 F Pulse Rate 89 79 84 Respiratory Rate 20 17 20 Blood Pressure 121/86 120/74 100/56 L Pulse Oximetry 96 97 96 BMI result Body Mass Index 47.9 Labs Results: 04/14/21 22:12 04/14/21 22:12 Medications Medications Current Medications Acetaminophen (Acetaminophen 325 Mg Tablet) 325 mg PO TID [facility] Last Admin: 04/24/21 10:45 Dose: 325 mg Documented by: Acetaminophen (Acetaminophen 325 Mg Tablet) 650 mg PO Q4H PRN PRN Reason: abd pain Last Admin: 04/24/21 08:35 Dose: 650 mg Documented by: Al Hydroxide/Mg Hydroxide (Magnesium Hydrox/Alum Hydrox 30 Ml Oral.Susp) 30 ml PO Q6H PRN PRN Reason: Heartburn/Nausea Atenolol (Atenolol 25 Mg Tablet) 25 mg PO DAILY [facility]; Protocol Last Admin: 04/24/21 08:37 Dose: 25 mg Documented by: Bisacodyl (Bisacodyl 5 Mg Tablet.Dr) 10 mg PO BEDTIME PRN PRN Reason: Constipation Bupropion HCl (Bupropion Hcl Xl 150 Mg Tab.Er.24h) 150 mg PO DAILY [facility] Last Admin: 04/24/21 08:35 Dose: 150 mg Documented by: Bupropion HCl (Bupropion Hcl Xl 300 Mg Tab.Er.24h) 300 mg PO DAILY [facility] Last Admin: 04/24/21 08:36 Dose: 300 mg Documented by: Clonazepam (Clonazepam 1 Mg Tablet) 1 mg PO BID PRN PRN Reason: Anxiety Last Admin: 04/24/21 10:45 Dose: 1 mg Documented by: Clonidine HCl (Clonidine Hcl 0.1 Mg Tablet) 0.1 mg PO TID PRN; Protocol PRN Reason: anxiety unresponsive to Hydroxyzine Last Admin: 04/23/21 15:10 Dose: 0.1 mg Documented by: Clonidine HCl (Clonidine Hcl 0.2 Mg Tablet) 0.2 mg PO BEDTIME [facility]; Protocol Gabapentin (Gabapentin 600 Mg Tablet) 600 mg PO TID [facility] Last Admin: 04/24/21 08:37 Dose: 600 mg Documented by: Hydroxyzine HCl (Hydroxyzine Hcl 50 Mg Tablet) 50 mg PO Q6H PRN PRN Reason: Anxiety Last Admin: 04/23/21 15:11 Dose: 50 mg Documented by: Lurasidone HCl (Lurasidone Hcl 40 Mg Tablet) 120 mg PO DAILY@1700 [facility] Last Admin: 04/23/21 17:50 Dose: 120 mg Documented by: Magnesium Hydroxide (Milk Of Magnesia 30 Ml Oral.Susp) 30 ml PO DAILY PRN PRN Reason: Constipation Methadone HCl (Methadone Hcl 20 Mg/2 Ml Oral.Conc) 170 mg PO DAILY [facility] Last Admin: 04/24/21 10:40 Dose: 170 mg Documented by: Nicotine Polacrilex (Nicotine Polacrilex 2 Mg Gum) 2 mg BUCCAL Q2H PRN PRN Reason: Nicotine Cravings Patient Own Medication ( Lisdexamfetamine [ Vyvanse] 60 Mg Capsule) 1 each PO DAILY [facility] Last Admin: 04/24/21 08:37 Dose: 1 each Documented by: Patient Own Medication ( Terbinafine 250 Mg) 1 each PO BEDTIME [facility] Last Admin: 04/23/21 20:18 Dose: 1 each Documented by: Omeprazole (Omeprazole 20 Mg Capsule.Dr) 20 mg PO BID@0630,1630 [facility] Last Admin: 04/24/21 08:37 Dose: 20 mg Documented by: Polyethylene Glycol (Polyethylene Glycol 3350 17 Gm Powd.Pack) 17 gm PO DAILY PRN PRN Reason: Constipation Last Admin: 04/23/21 15:10 Dose: 17 gm Documented by: Quetiapine Fumarate (Quetiapine Fumarate 50 Mg Tablet) 50 mg PO BEDTIME [facility] Trazodone HCl (Trazodone Hcl 50 Mg Tablet) 50 mg PO BEDTIME PRN PRN Reason: insomnia Allergies Allergies Allergy/AdvReac Type Severity Reaction Status Date / Time acetaminophen Allergy Mild UNKNOWN Verified 04/14/21 21:58 [From Darvocet-N 50] meperidine [From Demerol] Allergy Mild UNKNOWN Verified 04/14/21 21:58 Penicillins Allergy Mild UNKNOWN Verified 04/14/21 21:58 propoxyphene Allergy Mild UNKNOWN Verified 04/14/21 21:58 [From Darvocet-N 50] Sulfa (Sulfonamide Allergy Mild UNKNOWN, Verified 04/14/21 21:58 Antibiotics) HIVES penicillin V Allergy Unknown SWELLING Verified 12/28/16 00:00 Assessment & Plan Assessment & Plan (1) Bipolar 2 disorder, major depressive episode: Status: Acute Code(s): F31.81 - Bipolar II disorder (2) Opioid use disorder, moderate, in early remission: Status: Acute Code(s): F11.21 - Opioid dependence, in remission (3) PTSD (post-traumatic stress disorder): Status: Acute Code(s): F43.10 - Post-traumatic stress disorder, unspecified Plan Ms. Das is a 31 year-old woman with hx of PTSD, Bipolar 2 Disorder, opioid use disorder in recovery who self [place] [facility] [place] SI with plan to OD. She has been in [facility] residential substance use tx program for about 8 months- recently relapsed. PLAN 1. Switch ativan to clonazepam. pt in controlled environment in program where there is less potential for abuse or misuse but will discuss in more detail with both staff at [facility] and OP psych provider, Thais Porter. 2. continue all other medications- pt wants to talk with manager intermediate provider to discuss other med changes. 2.5. taper off of seroquel and replace with clonidine at HS. process begun 04/24. 3. Obtain collateral information 4. Aftercare planning. I spent minutes with the patient and/or on the patient floor today, greater than?50% of which was spent counseling/coordinating care. Reason for contiued inpatient stay Substantial Risk for: harm to self, inability to function and rapid decompensation
[2021-04-24] MEDS: cloNIDine HCL 0.1 MG TABLET PO (15:04)
[2021-04-24] MEDS: hydrOXYzine HCL 50 MG TABLET PO ×2 (15:07→21:44)
[2021-04-24] MEDS: Lurasidone HCl 40 MG TABLET 120 MG PO (17:44)
[2021-04-24 18:00] VITALS: BP 120/65; PULSE 84; RESP 18; TEMP 36.8; O2SAT 98
[2021-04-24] MEDS: cloNIDine HCL 0.2 MG TABLET PO (21:34)
[2021-04-24] MEDS: QUEtiapine Fumarate 50 MG TABLET PO (21:34)
[2021-04-24] MEDS: traZODone HCL 50 MG TABLET PO (21:35)
[2021-04-25] MEDS: Acetaminophen 325 MG TABLET PO ×3 (08:06→21:35)
[2021-04-25] MEDS: Omeprazole 20 MG CAPSULE.DR PO ×2 (08:06→17:58)
[2021-04-25] MEDS: clonazePAM 1 MG TABLET PO ×2 (08:06→18:27)
[2021-04-25] MEDS: Gabapentin 600 MG TABLET PO ×3 (08:06→21:37)
[2021-04-25] MEDS: buPROPion HCl XL 300 MG TAB.ER.24H PO (08:06)
[2021-04-25] MEDS: buPROPion HCl XL 150 MG TAB.ER.24H PO (08:06)
[2021-04-25] MEDS: atenoloL 25 MG TABLET PO (08:06)
[2021-04-25] MEDS: methADONE HCl 20 MG/2 ML ORAL.CONC 170 MG PO (08:08)
[2021-04-25 08:22] VITALS: BP 104/55; PULSE 85; RESP 16; TEMP 36.7; O2SAT 95
[2021-04-25] MEDS: polyethylene glycoL 3350 17 GM POWD.PACK PO (09:48)
[2021-04-25] MEDS: hydrOXYzine HCL 50 MG TABLET PO ×2 (12:38→21:36)
[2021-04-25] MEDS: Acetaminophen 325 MG TABLET 650 MG PO (12:38)
[2021-04-25] MEDS: cloNIDine HCL 0.1 MG TABLET PO ×2 (12:38→18:27)
[2021-04-25 12:40] VITALS: BP 119/69; PULSE 83
[2021-04-25] MEDS: Lurasidone HCl 40 MG TABLET 120 MG PO (17:58)
[2021-04-25 18:00] VITALS: BP 98/62; PULSE 80; RESP 16; TEMP 36.3; O2SAT 96
--- NOTE | 2021-04-25 21:22 | HO.PSYCHPN ---
Subjective Subjective Date of Service: 04/25/21 Reason For Visit: Crisis Interim History: pt describes episode of sleep paralysis last night, which sounds like it, where she was coming out of a dream and couldn't move her body. she states it was very scary. she reports ongoing sleep difficulties and agrees to increase clonidine at HS to 0.3 mg. will hold steady on the seroquel bcse she did not sleep well, with intent to continue seroquel taper when able. BP is a little on the low side and we are in the midst of uptitration of clonidine; agrees to trial of lowered beta dami dosing, so atenolol lowered to 12.5 mg daily. per staff, slept most of the day. increase depression and hopelessness. med-compliant. no SI/HI. eating well. not attending groups. Mental Status Exam Mental Status Exam Narrative: Appearance: casually groomed. good hygiene Behavior: cooperative Psychomotor: no agitation or retardation noted Speech: clear, normal rate/rhythm/volume, spontaneous TP: linear TC: no signs of psychosis, feeling hopeless Mood: depressed Affect: congruent SI: none expressed HI: none expressed VH/AH: none expressed Diagnostics Vital Signs (24Hr): Vital Signs - 24 hr 04/25/21 08:22 04/25/21 12:40 Temperature 98.1 F Pulse Rate 85 83 Respiratory Rate 16 Blood Pressure 104/55 L 119/69 Pulse Oximetry 95 BMI result Body Mass Index 47.9 Labs Results: 04/14/21 22:12 04/14/21 22:12 Medications Medications Current Medications Acetaminophen (Acetaminophen 325 Mg Tablet) 325 mg PO TID [facility] Last Admin: 04/25/21 15:33 Dose: 325 mg Documented by: Acetaminophen (Acetaminophen 325 Mg Tablet) 650 mg PO Q4H PRN PRN Reason: abd pain Last Admin: 04/25/21 12:38 Dose: 650 mg Documented by: Al Hydroxide/Mg Hydroxide (Magnesium Hydrox/Alum Hydrox 30 Ml Oral.Susp) 30 ml PO Q6H PRN PRN Reason: Heartburn/Nausea Atenolol (Atenolol 25 Mg Tablet) 12.5 mg PO DAILY [facility]; Protocol Bisacodyl (Bisacodyl 5 Mg Tablet.Dr) 10 mg PO BEDTIME PRN PRN Reason: Constipation Bupropion HCl (Bupropion Hcl Xl 150 Mg Tab.Er.24h) 150 mg PO DAILY [facility] Last Admin: 04/25/21 08:06 Dose: 150 mg Documented by: Bupropion HCl (Bupropion Hcl Xl 300 Mg Tab.Er.24h) 300 mg PO DAILY [facility] Last Admin: 04/25/21 08:06 Dose: 300 mg Documented by: Clonazepam (Clonazepam 1 Mg Tablet) 1 mg PO BID PRN PRN Reason: Anxiety Last Admin: 04/25/21 18:27 Dose: 1 mg Documented by: Clonidine HCl (Clonidine Hcl 0.1 Mg Tablet) 0.1 mg PO TID PRN; Protocol PRN Reason: anxiety unresponsive to Hydroxyzine Last Admin: 04/25/21 18:27 Dose: 0.1 mg Documented by: Clonidine HCl (Clonidine Hcl 0.1 Mg Tablet) 0.3 mg PO BEDTIME [facility]; Protocol Gabapentin (Gabapentin 600 Mg Tablet) 600 mg PO TID [facility] Last Admin: 04/25/21 15:33 Dose: 600 mg Documented by: Hydroxyzine HCl (Hydroxyzine Hcl 50 Mg Tablet) 50 mg PO Q6H PRN PRN Reason: Anxiety Last Admin: 04/25/21 12:38 Dose: 50 mg Documented by: Lurasidone HCl (Lurasidone Hcl 40 Mg Tablet) 120 mg PO DAILY@1700 [facility] Last Admin: 04/25/21 17:58 Dose: 120 mg Documented by: Magnesium Hydroxide (Milk Of Magnesia 30 Ml Oral.Susp) 30 ml PO DAILY PRN PRN Reason: Constipation Methadone HCl (Methadone Hcl 20 Mg/2 Ml Oral.Conc) 170 mg PO DAILY [facility] Last Admin: 04/25/21 08:08 Dose: 170 mg Documented by: Nicotine Polacrilex (Nicotine Polacrilex 2 Mg Gum) 2 mg BUCCAL Q2H PRN PRN Reason: Nicotine Cravings Patient Own Medication ( Lisdexamfetamine [ Vyvanse] 60 Mg Capsule) 1 each PO DAILY [facility] Last Admin: 04/25/21 08:06 Dose: 1 each Documented by: Patient Own Medication ( Terbinafine 250 Mg) 1 each PO BEDTIME [facility] Last Admin: 04/24/21 21:44 Dose: 1 each Documented by: Omeprazole (Omeprazole 20 Mg Capsule.Dr) 20 mg PO BID@0630,1630 [facility] Last Admin: 04/25/21 17:58 Dose: 20 mg Documented by: Polyethylene Glycol (Polyethylene Glycol 3350 17 Gm Powd.Pack) 17 gm PO DAILY PRN PRN Reason: Constipation Last Admin: 04/25/21 09:48 Dose: 17 gm Documented by: Quetiapine Fumarate (Quetiapine Fumarate 50 Mg Tablet) 50 mg PO BEDTIME [facility] Last Admin: 04/24/21 21:34 Dose: 50 mg Documented by: Trazodone HCl (Trazodone Hcl 50 Mg Tablet) 50 mg PO BEDTIME PRN PRN Reason: insomnia Last Admin: 04/24/21 21:35 Dose: 50 mg Documented by: Allergies Allergies Allergy/AdvReac Type Severity Reaction Status Date / Time acetaminophen Allergy Mild UNKNOWN Verified 04/14/21 21:58 [From Darvocet-N 50] meperidine [From Demerol] Allergy Mild UNKNOWN Verified 04/14/21 21:58 Penicillins Allergy Mild UNKNOWN Verified 04/14/21 21:58 propoxyphene Allergy Mild UNKNOWN Verified 04/14/21 21:58 [From Darvocet-N 50] Sulfa (Sulfonamide Allergy Mild UNKNOWN, Verified 04/14/21 21:58 Antibiotics) HIVES penicillin V Allergy Unknown SWELLING Verified 12/28/16 00:00 Assessment & Plan Assessment & Plan (1) Bipolar 2 disorder, major depressive episode: Status: Acute Code(s): F31.81 - Bipolar II disorder (2) Opioid use disorder, moderate, in early remission: Status: Acute Code(s): F11.21 - Opioid dependence, in remission (3) PTSD (post-traumatic stress disorder): Status: Acute Code(s): F43.10 - Post-traumatic stress disorder, unspecified Plan Ms. Das is a 31 year-old woman with hx of PTSD, Bipolar 2 Disorder, opioid use disorder in recovery who self presented to [facility] reporting SI with plan to OD. She has been in [facility] residential substance use tx program for about 8 months- recently relapsed. PLAN 1. Switch ativan to clonazepam. pt in controlled environment in program where there is less potential for abuse or misuse but will discuss [facility] detail [facility] and OP psych provider, Thais Porter. 2. continue all other medications- pt wants to talk with long distance billing operator provider to discuss other med changes. 2.5. taper off of seroquel and replace with clonidine at HS. process begun 04/24. 3. Obtain collateral information 4. Aftercare planning. I spent minutes with the patient and/or on the patient floor today, greater than?50% of which was spent counseling/coordinating care. Reason for contiued inpatient stay Substantial Risk for: inability to function and rapid decompensation
[2021-04-25] MEDS: cloNIDine HCL 0.1 MG TABLET 0.3 MG PO (21:36)
[2021-04-25] MEDS: QUEtiapine Fumarate 50 MG TABLET PO (21:37)
[2021-04-25] MEDS: traZODone HCL 50 MG TABLET PO (21:37)
[2021-04-26 08:00] VITALS: BP 96/66; PULSE 81; RESP 14; TEMP 36.4; O2SAT 95
[2021-04-26] MEDS: methADONE HCl 20 MG/2 ML ORAL.CONC 170 MG PO (08:19)
[2021-04-26] MEDS: buPROPion HCl XL 150 MG TAB.ER.24H PO (08:21)
[2021-04-26] MEDS: Acetaminophen 325 MG TABLET PO ×3 (08:21→20:50)
[2021-04-26] MEDS: Omeprazole 20 MG CAPSULE.DR PO ×2 (08:22→18:01)
[2021-04-26] MEDS: Gabapentin 600 MG TABLET PO ×3 (08:23→20:50)
[2021-04-26] MEDS: buPROPion HCl XL 300 MG TAB.ER.24H PO (08:23)
[2021-04-26] MEDS: polyethylene glycoL 3350 17 GM POWD.PACK PO (09:20)
--- NOTE | 2021-04-26 10:28 | P.PNPSI_ITS ---
Subjective Subjective Date of Service: 04/26/21 Reason For Visit: Crisis Subjective Notes: Conditional Voluntary Interim History: Tasha reports overall mood is better in that although she continues to endorse depressed mood, she is not as hopeless as before. She reports clonidine 0.3mg po qhs is too sedating for her. She reports some nightmares/night terrors increased with trazodone. She agrees to try clonidine 0.2mg po qhs. She reports less flashbacks, less anxious mood. She denies SI/HI. No VH/AH. Medication Compliance: Yes Side effects from medications: No Attending Groups: Yes Review of Systems Review of Systems Constitutional : No Fever, No Chills ENT/Mouth : No Ear Pain, No Nasal Congestion, No sore throat Eyes: No Eye Pain, No Swelling, No Redness Cardiovascular : No Chest Pain, No SOB Respiratory : No Cough, No Sputum, No Dyspnea Gastrointestinal : No Nausea, No Vomiting, No Diarrhea, No Hematochezia, No Melena Genitourinary : No Dysuria, No Urinary Frequency, No Hematuria Musculoskeletal : No Myalgias Skin : No Skin Lesions, No rash Neuro : No Weakness, No Numbness, No Paresthesias, No Dizziness, No Headache Psych : positive Anxiety, positive Depression, positive SI/HI All other systems reviewed and are negative Yes all other systems are reviewed and are negative Mental Status Exam Mental Status Exam Narrative: Appearance: casually groomed. good hygiene, in NAD Behavior: cooperative Psychomotor: no agitation or retardation noted Speech: clear, normal rate/rhythm/volume, spontaneous TP: linear TC: no signs of psychosis, feeling less hopeless Mood: depressed Affect: congruent, blunted SI: none expressed HI: none expressed VH/AH: none expressed Insight/judgment: fair x 2 Memory/cog: alert, oriented x 3. grossly intact to conversational testing. Diagnostics Vital Signs (24Hr): Vital Signs - 24 hr 04/25/21 12:40 04/25/21 18:00 04/26/21 08:00 Temperature 97.4 F 97.6 F Pulse Rate 83 80 81 Respiratory Rate 16 14 Blood Pressure 119/69 98/62 96/66 Pulse Oximetry 96 95 BMI result Body Mass Index 47.9 Labs Results: 04/14/21 22:12 04/14/21 22:12 Medications Medications Current Medications Acetaminophen (Acetaminophen 325 Mg Tablet) 325 mg PO TID [facility] Last Admin: 04/26/21 08:21 Dose: 325 mg Documented by: Acetaminophen (Acetaminophen 325 Mg Tablet) 650 mg PO Q4H PRN PRN Reason: abd pain Last Admin: 04/26/21 10:57 Dose: 650 mg Documented by: Al Hydroxide/Mg Hydroxide (Magnesium Hydrox/Alum Hydrox 30 Ml Oral.Susp) 30 ml PO Q6H PRN PRN Reason: Heartburn/Nausea Atenolol (Atenolol 25 Mg Tablet) 12.5 mg PO DAILY [facility]; Protocol Last Admin: 04/26/21 08:23 Dose: Not Given Documented by: Bisacodyl (Bisacodyl 5 Mg Tablet.Dr) 10 mg PO BEDTIME PRN PRN Reason: Constipation Bupropion HCl (Bupropion Hcl Xl 150 Mg Tab.Er.24h) 150 mg PO DAILY [facility] Last Admin: 04/26/21 08:21 Dose: 150 mg Documented by: Bupropion HCl (Bupropion Hcl Xl 300 Mg Tab.Er.24h) 300 mg PO DAILY [facility] Last Admin: 04/26/21 08:23 Dose: 300 mg Documented by: Clonazepam (Clonazepam 1 Mg Tablet) 1 mg PO BID PRN PRN Reason: Anxiety Last Admin: 04/26/21 10:57 Dose: 1 mg Documented by: Clonidine HCl (Clonidine Hcl 0.1 Mg Tablet) 0.1 mg PO TID PRN; Protocol PRN Reason: anxiety unresponsive to Hydroxyzine Last Admin: 04/25/21 18:27 Dose: 0.1 mg Documented by: Clonidine HCl (Clonidine Hcl 0.1 Mg Tablet) 0.3 mg PO BEDTIME [facility]; Protocol Last Admin: 04/25/21 21:36 Dose: 0.3 mg Documented by: Gabapentin (Gabapentin 600 Mg Tablet) 600 mg PO TID [facility] Last Admin: 04/26/21 08:23 Dose: 600 mg Documented by: Hydroxyzine HCl (Hydroxyzine Hcl 50 Mg Tablet) 50 mg PO Q6H PRN PRN Reason: Anxiety Last Admin: 04/26/21 10:57 Dose: 50 mg Documented by: Lurasidone HCl (Lurasidone Hcl 40 Mg Tablet) 120 mg PO DAILY@1700 [facility] Last Admin: 04/25/21 17:58 Dose: 120 mg Documented by: Magnesium Hydroxide (Milk Of Magnesia 30 Ml Oral.Susp) 30 ml PO DAILY PRN PRN Reason: Constipation Methadone HCl (Methadone Hcl 20 Mg/2 Ml Oral.Conc) 170 mg PO DAILY [facility] Last Admin: 04/26/21 08:19 Dose: 170 mg Documented by: Nicotine Polacrilex (Nicotine Polacrilex 2 Mg Gum) 2 mg BUCCAL Q2H PRN PRN Reason: Nicotine Cravings Patient Own Medication ( Lisdexamfetamine [ Vyvanse] 60 Mg Capsule) 1 each PO DAILY [facility] Last Admin: 04/26/21 08:21 Dose: 1 each Documented by: Patient Own Medication ( Terbinafine 250 Mg) 1 each PO BEDTIME [facility] Last Admin: 04/25/21 21:50 Dose: 1 each Documented by: Omeprazole (Omeprazole 20 Mg Capsule.) 20 mg PO BID@0630,1630 [facility] Last Admin: 04/26/21 08:22 Dose: 20 mg Documented by: Polyethylene Glycol (Polyethylene Glycol 3350 17 Gm Powd.Pack) 17 gm PO DAILY PRN PRN Reason: Constipation Last Admin: 04/26/21 09:20 Dose: 17 gm Documented by: Quetiapine Fumarate (Quetiapine Fumarate 50 Mg Tablet) 50 mg PO BEDTIME [facility] Last Admin: 04/25/21 21:37 Dose: 50 mg Documented by: Trazodone HCl (Trazodone Hcl 50 Mg Tablet) 50 mg PO BEDTIME PRN PRN Reason: insomnia Last Admin: 04/25/21 21:37 Dose: 50 mg Documented by: Allergies Allergies Allergy/AdvReac Type Severity Reaction Status Date / Time acetaminophen Allergy Mild UNKNOWN Verified 04/14/21 21:58 [From Darvocet-N 50] meperidine [From Demerol] Allergy Mild UNKNOWN Verified 04/14/21 21:58 Penicillins Allergy Mild UNKNOWN Verified 04/14/21 21:58 propoxyphene Allergy Mild UNKNOWN Verified 04/14/21 21:58 [From Darvocet-N 50] Sulfa (Sulfonamide Allergy Mild UNKNOWN, Verified 04/14/21 21:58 Antibiotics) HIVES penicillin V Allergy Unknown SWELLING Verified 12/28/16 00:00 Assessment & Plan Assessment & Plan (1) Bipolar 2 disorder, major depressive episode: Status: Acute Code(s): F31.81 - Bipolar II disorder (2) Opioid use disorder, moderate, in early remission: Status: Acute Code(s): F11.21 - Opioid dependence, in remission (3) PTSD (post-traumatic stress disorder): Status: Acute Code(s): F43.10 - Post-traumatic stress disorder, unspecified Plan Ms. Das is a 31 year-old woman with hx of PTSD, Bipolar 2 Disorder, opioid use disorder in recovery who self presented to [facility] reporting SI with plan to OD. She has been in [facility]- residential substance use tx program for about 8 months- recently relapsed. PLAN 1. Switch ativan to clonazepam. pt in controlled environment in program where there is less potential for abuse or misuse but will discuss in more detail with both staff at [facility] and OP psych provider, Thais Porter. 2. continue all other medications 2.5. taper off of seroquel and replace with clonidine at HS. process begun 04/24. lower clonidine from 0.3mg po qhs to 0.2mg po qhs due to sedation/dizziness on 04/26. 3. Obtain collateral information 4. Aftercare planning. I spent minutes with the patient and/or on the patient floor today, greater than?50% of which was spent counseling/coordinating care. Reason for contiued inpatient stay Substantial Risk for: harm to self
[2021-04-26] MEDS: clonazePAM 1 MG TABLET PO ×2 (10:57→20:49)
[2021-04-26] MEDS: hydrOXYzine HCL 50 MG TABLET PO ×2 (10:57→20:50)
[2021-04-26] MEDS: Acetaminophen 325 MG TABLET 650 MG PO (10:57)
[2021-04-26] MEDS: cloNIDine HCL 0.1 MG TABLET PO (15:23)
[2021-04-26] MEDS: Lurasidone HCl 40 MG TABLET 120 MG PO (18:00)
[2021-04-26 20:42] VITALS: BP 115/68; PULSE 90; TEMP 36.5; O2SAT 95
[2021-04-26] MEDS: cloNIDine HCL 0.1 MG TABLET 0.3 MG PO (20:49)
[2021-04-26] MEDS: QUEtiapine Fumarate 50 MG TABLET PO (20:49)
[2021-04-27 08:21] VITALS: BP 98/49; PULSE 116; RESP 16; TEMP 36.7; O2SAT 96
[2021-04-27] MEDS: Omeprazole 20 MG CAPSULE.DR PO ×2 (08:23→16:34)
[2021-04-27] MEDS: buPROPion HCl XL 150 MG TAB.ER.24H PO (08:23)
[2021-04-27] MEDS: Acetaminophen 325 MG TABLET PO ×3 (08:23→20:37)
[2021-04-27] MEDS: clonazePAM 1 MG TABLET PO ×2 (08:23→14:47)
[2021-04-27] MEDS: Gabapentin 600 MG TABLET PO ×3 (08:24→20:37)
[2021-04-27] MEDS: buPROPion HCl XL 300 MG TAB.ER.24H PO (08:24)
[2021-04-27] MEDS: methADONE HCl 20 MG/2 ML ORAL.CONC 170 MG PO (08:25)
--- NOTE | 2021-04-27 13:25 | P.PNPSI_ITS ---
Subjective Subjective Date of Service: 04/27/21 Reason For Visit: Crisis Subjective Notes: Conditional Voluntary Interim History: Tasha continues to report improvement in mood in that she is less hopeless, wants to continue OP psych and dual dx treatment. Pt reports fair sleep, having night terrors, talking in her sleep. She denies SI/HI. She would like to try p razosin for nightmares rather than clonidine. Medication Compliance: Yes Side effects from medications: No Review of Systems Review of Systems Constitutional : No Fever, No Chills ENT/Mouth : No Ear Pain, No Nasal Congestion, No sore throat Eyes: No Eye Pain, No Swelling, No Redness Cardiovascular : No Chest Pain, No SOB Respiratory : No Cough, No Sputum, No Dyspnea Gastrointestinal : No Nausea, No Vomiting, No Diarrhea, No Hematochezia, No Melena Genitourinary : No Dysuria, No Urinary Frequency, No Hematuria Musculoskeletal : No Myalgias Skin : No Skin Lesions, No rash Neuro : No Weakness, No Numbness, No Paresthesias, No Dizziness, No Headache Psych : positive Anxiety, positive Depression, positive SI/HI All other systems reviewed and are negative Yes all other systems are reviewed and are negative Mental Status Exam Mental Status Exam Narrative: Appearance: casually groomed. good hygiene, in NAD Behavior: cooperative Psychomotor: no agitation or retardation noted Speech: clear, normal rate/rhythm/volume, spontaneous TP: linear TC: no signs of psychosis, feeling less hopeless Mood: less depressed Affect: congruent, brighter SI: none expressed HI: none expressed VH/AH: none expressed Insight/judgment: fair x 2 Memory/cog: alert, oriented x 3. grossly intact to conversational testing. Diagnostics Vital Signs (24Hr): Vital Signs - 24 hr 04/26/21 20:42 04/27/21 08:21 Temperature 97.7 F 98.0 F Pulse Rate 90 116 H Respiratory Rate 16 Blood Pressure 115/68 98/49 L Pulse Oximetry 95 96 BMI result Body Mass Index 47.9 Labs Results: 04/14/21 22:12 04/14/21 22:12 Medications Medications Current Medications Acetaminophen (Acetaminophen 325 Mg Tablet) 325 mg PO TID [facility] Last Admin: 04/27/21 14:46 Dose: 325 mg Documented by: Acetaminophen (Acetaminophen 325 Mg Tablet) 650 mg PO Q4H PRN PRN Reason: abd pain Last Admin: 04/26/21 10:57 Dose: 650 mg Documented by: Al Hydroxide/Mg Hydroxide (Magnesium Hydrox/Alum Hydrox 30 Ml Oral.Susp) 30 ml PO Q6H PRN PRN Reason: Heartburn/Nausea Atenolol (Atenolol 25 Mg Tablet) 12.5 mg PO DAILY [facility]; Protocol Last Admin: 04/27/21 08:24 Dose: Not Given Documented by: Bisacodyl (Bisacodyl 5 Mg Tablet.Dr) 10 mg PO BEDTIME PRN PRN Reason: Constipation Bupropion HCl (Bupropion Hcl Xl 150 Mg Tab.Er.24h) 150 mg PO DAILY [facility] Last Admin: 04/27/21 08:23 Dose: 150 mg Documented by: Bupropion HCl (Bupropion Hcl Xl 300 Mg Tab.Er.24h) 300 mg PO DAILY [facility] Last Admin: 04/27/21 08:24 Dose: 300 mg Documented by: Clonazepam (Clonazepam 1 Mg Tablet) 1 mg PO BID PRN PRN Reason: Anxiety Last Admin: 04/27/21 14:47 Dose: 1 mg Documented by: Clonidine HCl (Clonidine Hcl 0.1 Mg Tablet) 0.1 mg PO TID PRN; Protocol PRN Reason: anxiety unresponsive to Hydroxyzine Last Admin: 04/26/21 15:23 Dose: 0.1 mg Documented by: Gabapentin (Gabapentin 600 Mg Tablet) 600 mg PO TID [facility] Last Admin: 04/27/21 14:47 Dose: 600 mg Documented by: Hydroxyzine HCl (Hydroxyzine Hcl 50 Mg Tablet) 50 mg PO Q6H PRN PRN Reason: Anxiety Last Admin: 04/27/21 14:47 Dose: 50 mg Documented by: Lurasidone HCl (Lurasidone Hcl 40 Mg Tablet) 120 mg PO BEDTIME [facility] Magnesium Hydroxide (Milk Of Magnesia 30 Ml Oral.Susp) 30 ml PO DAILY PRN PRN Reason: Constipation Methadone HCl (Methadone Hcl 20 Mg/2 Ml Oral.Conc) 170 mg PO DAILY [facility] Last Admin: 04/27/21 08:25 Dose: 170 mg Documented by: Nicotine Polacrilex (Nicotine Polacrilex 2 Mg Gum) 2 mg BUCCAL Q2H PRN PRN Reason: Nicotine Cravings Patient Own Medication ( Lisdexamfetamine [ Vyvanse] 60 Mg Capsule) 1 each PO DAILY [facility] Last Admin: 04/27/21 08:23 Dose: 1 each Documented by: Patient Own Medication ( Terbinafine 250 Mg) 1 each PO BEDTIME [facility] Last Admin: 04/26/21 20:49 Dose: 1 each Documented by: Omeprazole (Omeprazole 20 Mg Capsule.) 20 mg PO BID@0630,1630 [facility] Last Admin: 04/27/21 08:23 Dose: 20 mg Documented by: Polyethylene Glycol (Polyethylene Glycol 3350 17 Gm Powd.Pack) 17 gm PO DAILY PRN PRN Reason: Constipation Last Admin: 04/26/21 09:20 Dose: 17 gm Documented by: Quetiapine Fumarate (Quetiapine Fumarate 25 Mg Tablet) 75 mg PO BEDTIME [facility] Trazodone HCl (Trazodone Hcl 50 Mg Tablet) 50 mg PO BEDTIME PRN PRN Reason: insomnia Last Admin: 04/25/21 21:37 Dose: 50 mg Documented by: Allergies Allergies Allergy/AdvReac Type Severity Reaction Status Date / Time acetaminophen Allergy Mild UNKNOWN Verified 04/14/21 21:58 [From Darvocet-N 50] meperidine [From Demerol] Allergy Mild UNKNOWN Verified 04/14/21 21:58 Penicillins Allergy Mild UNKNOWN Verified 04/14/21 21:58 propoxyphene Allergy Mild UNKNOWN Verified 04/14/21 21:58 [From Darvocet-N 50] Sulfa (Sulfonamide Allergy Mild UNKNOWN, Verified 04/14/21 21:58 Antibiotics) HIVES penicillin V Allergy Unknown SWELLING Verified 12/28/16 00:00 Assessment & Plan Assessment & Plan (1) Bipolar 2 disorder, major depressive episode: Status: Acute Code(s): F31.81 - Bipolar II disorder (2) Opioid use disorder, moderate, in early remission: Status: Acute Code(s): F11.21 - Opioid dependence, in remission (3) PTSD (post-traumatic stress disorder): Status: Acute Code(s): F43.10 - Post-traumatic stress disorder, unspecified Plan Ms. Das is a 31 year-old woman with hx of PTSD, Bipolar 2 Disorder, opioid use disorder in recovery who self presented to [facility] reporting SI with plan to OD. She has been in [facility]- residential substance use tx program for about 8 months- recently relapsed. PLAN 1. Switch ativan to clonazepam. pt in controlled environment in program where there is less potential for abuse or misuse but will discuss in more detail with both staff at [facility] and OP psych provider, Thais Porter. 2. continue all other medications 2.5. taper off of seroquel and replace with clonidine at HS. d/c clonidine would like to try prazosin for nightmares instead. 3. Obtain collateral information 4. Aftercare planning. I spent minutes with the patient and/or on the patient floor today, greater than?50% of which was spent counseling/coordinating care. Reason for contiued inpatient stay Substantial Risk for: stable for discharge
[2021-04-27] MEDS: hydrOXYzine HCL 50 MG TABLET PO (14:47)
--- NOTE | 2021-04-27 15:44 | P.DS_ITS ---
DS: Providers Provider Date of Service: 05/25/21 Date of admission: 04/15/21 23:27 Primary care physician: Diamond Escoto MD Consults: 04/15/21 01:58 BHN [Consult to Crisis] Stat Reason for consultation: si DS: Diagnosis Discharge Diagnosis (1) Bipolar 2 disorder, major depressive episode: Status: Acute (2) Opioid use disorder, moderate, in early remission: Status: Acute (3) PTSD (post-traumatic stress disorder): Status: Acute DS: Medications Discharge Medications Home Medications: Home Medications Medication Instructions Recorded Confirmed lisdexamfetamine 60 mg capsule 60 mg PO DAILY 04/15/21 04/15/21 (Vyvanse) methadone 10 mg/5 mL oral solution 170 mg PO DAILY 04/15/21 04/15/21 omeprazole 20 mg capsule,delayed 20 mg PO DAILY 04/15/21 04/15/21 release Previous Rx's Medication Instructions Recorded acetaminophen 325 mg tablet 325 mg PO TID #60 tab 04/27/21 atenolol 25 mg tablet 12.5 mg PO DAILY #30 tab 04/27/21 bupropion HCl 150 mg 24 hr tablet, 150 mg PO DAILY #30 tab 04/27/21 extended release bupropion HCl 300 mg 24 hr tablet, 300 mg PO DAILY #30 tab 04/27/21 extended release clonazepam 1 mg tablet 1 mg PO BID PRN #30 tab 04/27/21 clonidine HCl 0.1 mg tablet 0.1 mg PO TID PRN #21 tab 04/27/21 gabapentin 600 mg tablet 600 mg PO TID #90 tab 04/27/21 lurasidone 120 mg tablet (Latuda) 120 mg PO BEDTIME #30 tab 04/27/21 polyethylene glycol 3350 17 gram 17 g PO DAILY PRN #30 ea 04/27/21 oral powder packet prazosin 2 mg capsule 2 mg PO BEDTIME #15 cap 04/27/21 quetiapine 25 mg tablet 75 mg PO BEDTIME #90 tab 04/27/21 Mental Status Exam Mental Status Exam Narrative: Appearance: casually groomed. good hygiene, in NAD Behavior: cooperative Psychomotor: no agitation or retardation noted Speech: clear, normal rate/rhythm/volume, spontaneous TP: linear TC: no signs of psychosis, feeling less hopeless, future oriented Mood: less depressed Affect: congruent, brighter SI: none expressed HI: none expressed VH/AH: none expressed Insight/judgment: fair x 2 Memory/cog: alert, oriented x 3. grossly intact to conversational testing. DS: Summary Hospital Course Hospital Course: 31 year old mother of 2 (13 yo and 18 mo old) with history of opioid dependence, depression, non-suicidal self injury. Patient has been residing at the [facility] due to heroin dependence and had been sober for several months. She reports her anxiety and urges to cut have been increasing. She also reports she was struggling with gall bladder pain and was supposed to have surgery 04/18/21 at [facility]. Patient presented for abdominal pain related to her gall bladder and also reported increased suicidal ideation and feelings of hopelessness and worthlessness and increased depression after she relapsed. She was having increase NSSI proior to the relapse because of intensifying anxiety. Patient had SI with possible plan of overdosing. She denied AVH, HI or violent ideation. She reports episodes of intense panic that precipitate her cutting. She says she has flashbacks of severe traumas that are overwhelming to her. She reports she has been in touch with her psychiatric practitioner at [facility] and they have been rearranging medications. Her Seroquel was being tapered due to patient reporting sig weight gain. It went down from 150 mg to 75 mg. She reports Lorazepam had helped in the past. She says Latuda which was introduced dutring an October 2020 hospital stay has been helpful. She is on 60 mg. No side effects. She feels guilt and remorse about the relapse since she was doing really well at her sober living home and was on phase II with a lot of freedom. Stressors include 18 month old child in [facility] custody about 6 months ago. ? Past Psychiatric History: Suicide attempt by hanging last year and another by OD Opioid dependence on methadone Non suicidal self injury PTSD Depression Medical Evaluation Reviewed: Yes HOSPITAL COURSE On the unit, Ms. Das was admitted on a CV and placed on 15 minutes checks for safety. After discussing risks, benefits and alternative treatment options, pt agreed to increase latuda as per her report and her OP psych provider this medication had been helpful for symptoms of depression. She was discharged on Latuda 120mg po daily. She was also continued on Wellbutrin XR 450mg po daily. She was continued on clonidine. She was switched from ativan to clonazepam for anxiety- pt aware that this medication is monitored by her dual diagnosis group and she agrees to regular urine tox screen. Her affect gradually brighten. She denied SI/HI. She reported decreased symptoms of depression and presented increasingly more future oriented. She attended assigned groups. She was sleeping and eating well. There were no incidences of disruptive behaviors nor use of restraints. She return back to [facility]. Collateral information gathered from her OP psych provider and staff from residential dual diagnosis program were gathered. Status at Discharge Cognitive/behavioral status at discharge: Ms. Das presents with bright affect, non labile. No Signs of aggression towards self or others. No SI/HI. Increasingly more future oriented. No signs of VH/AH. Functional status at discharge: independent ambulation Overall status at discharge: patient is progressing back to baseline Time Spent with Patient Time attestation: Total time spent providing and/or coordinating discharge services: Time spent: Greater than 30 minutes Discharge Plan Discharge Patient Disposition: Home, Self-Care Discharge Diagnosis: Bipolar type 2 disorder Referrals: Thais Porter (Psychiatrist) [Other] - 05/02/21 12:30 pm (Telehealth Appointment ) Ray Liu (Therapist) [Other] - 05/03/21 12:00 pm (Please check in with your therapist to verify the time of the appointment ) Diamond Escoto MD [Primary Care Provider] - 1 Week (Follow up appointment scheduled for 05/05/21 at 1045 in office visit) Discharge Medications: New clonidine HCl 0.1 mg Tablet 0.1 mg PO TID PRN (Reason: anxiety unresponsive to Hydroxyzine) Qty: 21 0RF Protocol: Hold for SBP< HOLD for SBP < : 90 atenolol 25 mg Tablet 12.5 mg PO DAILY Qty: 30 0RF Protocol: Hold for SBP/HR < HOLD for SBP < : 90 HOLD for HR < : 60 prazosin 2 mg capsule 2 mg PO BEDTIME Qty: 15 0RF acetaminophen 325 mg Tablet 325 mg PO TID Qty: 60 0RF quetiapine 25 mg Tablet 75 mg PO BEDTIME Qty: 90 0RF gabapentin 600 mg Tablet 600 mg PO TID Qty: 90 0RF clonazepam 1 mg Tablet 1 mg PO BID PRN (Reason: Anxiety) Qty: 30 0RF bupropion HCl 300 mg Tablet Extended Release 24 Hr 300 mg PO DAILY Qty: 30 0RF bupropion HCl 150 mg Tablet Extended Release 24 Hr 150 mg PO DAILY Qty: 30 0RF Latuda 120 mg tablet 120 mg PO BEDTIME Qty: 30 0RF polyethylene glycol 3350 17 gram Powder In Packet 17 g PO DAILY PRN (Reason: Constipation) Qty: 30 0RF Continued methadone 10 mg/5 mL Solution 170 mg PO DAILY 0RF omeprazole 20 mg Capsule,Delayed Release(Dr/Ec) 20 mg PO DAILY 0RF Vyvanse 60 mg Capsule 60 mg PO DAILY 0RF Discontinued quetiapine [Seroquel] 25 mg Tablet 75 mg PO BEDTIME 0RF acetaminophen 325 mg Tablet 325 mg PO TID 0RF gabapentin 600 mg Tablet 600 mg PO TID 0RF atenolol 25 mg Tablet 25 mg PO DAILY 0RF terbinafine HCl 250 mg Tablet 250 mg PO DAILY 0RF lorazepam 0.5 mg Tablet 0.5 mg PO DAILY PRN (Reason: Anxiety) 0RF hydroxyzine HCl 25 mg Tablet 25 mg PO TID PRN (Reason: Anxiety) 0RF bupropion HCl 300 mg Tablet Extended Release 24 Hr 300 mg PO QAM 0RF bupropion HCl 150 mg Tablet Extended Release 24 Hr 150 mg PO QAM 0RF Latuda 60 mg Tablet 60 mg PO QPM 0RF Rx Instructions: must administer with food (at least 350 calories) Discharge Orders: Discharge Order (Routine); Ordered 04/28/21 Ordered By: Casey Novoa Diet: regular diet Activity on Discharge: As tolerated Stand Alone Forms: Patient Portal Discharge page, Community Support Care Plan Goals: Maintain mood 2. no SI/HI 3. Harm reduction- narcan take home Health Concerns: follow up with PCP Plan of Treatment: take medications as prescribed go to nearest ED or call 911 in event of emergency Assessment: Pt with brighter affect, more hopeful, no SI/HI. continue working on recovery. Discharge Date/Time: 04/28/21 13:45
[2021-04-27 20:34] VITALS: BP 106/64; PULSE 78; TEMP 36.5; O2SAT 94
[2021-04-27] MEDS: traZODone HCL 50 MG TABLET PO (20:36)
[2021-04-27] MEDS: Prazosin HCL 1 MG CAPSULE 2 MG PO (20:36)
[2021-04-27] MEDS: QUEtiapine Fumarate 25 MG TABLET 75 MG PO (20:36)
[2021-04-27] MEDS: Lurasidone HCl 40 MG TABLET 120 MG PO (20:37)
[2021-04-28] MEDS: Acetaminophen 325 MG TABLET PO (08:36)
[2021-04-28] MEDS: buPROPion HCl XL 150 MG TAB.ER.24H PO (08:37)
[2021-04-28] MEDS: Omeprazole 20 MG CAPSULE.DR PO (08:37)
[2021-04-28] MEDS: Gabapentin 600 MG TABLET PO (08:37)
[2021-04-28] MEDS: buPROPion HCl XL 300 MG TAB.ER.24H PO (08:38)
[2021-04-28 08:39] VITALS: BP 110/59; PULSE 95; RESP 20; TEMP 36.6; O2SAT 96
[2021-04-28] MEDS: methADONE HCl 20 MG/2 ML ORAL.CONC 170 MG PO (08:40)
[2021-04-28] MEDS: clonazePAM 1 MG TABLET PO ×2 (08:47→12:06)
--- NOTE | 2021-04-28 10:10 | HO.PSYCHPN ---
Subjective Subjective Reason For Visit: Crisis Diagnostics Vital Signs (24Hr): Vital Signs - 24 hr 04/27/21 20:34 04/28/21 08:39 Temperature 97.7 F 97.9 F Pulse Rate 78 95 Respiratory Rate 20 Blood Pressure 106/64 110/59 L Pulse Oximetry 94 96 BMI result Body Mass Index 47.9 Labs Results: 04/14/21 22:12 04/14/21 22:12 Medications Medications Current Medications Acetaminophen (Acetaminophen 325 Mg Tablet) 325 mg PO TID [facility] Last Admin: 04/28/21 08:36 Dose: 325 mg Documented by: Acetaminophen (Acetaminophen 325 Mg Tablet) 650 mg PO Q4H PRN PRN Reason: abd pain Last Admin: 04/26/21 10:57 Dose: 650 mg Documented by: Al Hydroxide/Mg Hydroxide (Magnesium Hydrox/Alum Hydrox 30 Ml Oral.Susp) 30 ml PO Q6H PRN PRN Reason: Heartburn/Nausea Atenolol (Atenolol 25 Mg Tablet) 12.5 mg PO DAILY [facility]; Protocol Last Admin: 04/28/21 08:38 Dose: Not Given Documented by: Bisacodyl (Bisacodyl 5 Mg Tablet.Dr) 10 mg PO BEDTIME PRN PRN Reason: Constipation Bupropion HCl (Bupropion Hcl Xl 150 Mg Tab.Er.24h) 150 mg PO DAILY [facility] Last Admin: 04/28/21 08:37 Dose: 150 mg Documented by: Bupropion HCl (Bupropion Hcl Xl 300 Mg Tab.Er.24h) 300 mg PO DAILY [facility] Last Admin: 04/28/21 08:38 Dose: 300 mg Documented by: Clonazepam (Clonazepam 1 Mg Tablet) 1 mg PO BID PRN PRN Reason: Anxiety Last Admin: 04/28/21 08:47 Dose: 1 mg Documented by: Clonidine HCl (Clonidine Hcl 0.1 Mg Tablet) 0.1 mg PO TID PRN; Protocol PRN Reason: anxiety unresponsive to Hydroxyzine Last Admin: 04/26/21 15:23 Dose: 0.1 mg Documented by: Gabapentin (Gabapentin 600 Mg Tablet) 600 mg PO TID [facility] Last Admin: 04/28/21 08:37 Dose: 600 mg Documented by: Hydroxyzine HCl (Hydroxyzine Hcl 50 Mg Tablet) 50 mg PO Q6H PRN PRN Reason: Anxiety Last Admin: 04/27/21 14:47 Dose: 50 mg Documented by: Lurasidone HCl (Lurasidone Hcl 40 Mg Tablet) 120 mg PO BEDTIME [facility] Last Admin: 04/27/21 20:37 Dose: 120 mg Documented by: Magnesium Hydroxide (Milk Of Magnesia 30 Ml Oral.Susp) 30 ml PO DAILY PRN PRN Reason: Constipation Methadone HCl (Methadone Hcl 20 Mg/2 Ml Oral.Conc) 170 mg PO DAILY [facility] Last Admin: 04/28/21 08:40 Dose: 170 mg Documented by: Nicotine Polacrilex (Nicotine Polacrilex 2 Mg Gum) 2 mg BUCCAL Q2H PRN PRN Reason: Nicotine Cravings Patient Own Medication ( Lisdexamfetamine [ Vyvanse] 60 Mg Capsule) 1 each PO DAILY [facility] Last Admin: 04/28/21 08:51 Dose: 1 each Documented by: Patient Own Medication ( Terbinafine 250 Mg) 1 each PO BEDTIME AMELIE Last Admin: 04/27/21 21:30 Dose: 1 each Documented by: Omeprazole (Omeprazole 20 Mg Capsule.) 20 mg PO BID@0630,1630 [facility] Last Admin: 04/28/21 08:37 Dose: 20 mg Documented by: Polyethylene Glycol (Polyethylene Glycol 3350 17 Gm Powd.Pack) 17 gm PO DAILY PRN PRN Reason: Constipation Last Admin: 04/26/21 09:20 Dose: 17 gm Documented by: Prazosin HCl (Prazosin Hcl 1 Mg Capsule) 2 mg PO BEDTIME [facility]; Protocol Last Admin: 04/27/21 20:36 Dose: 2 mg Documented by: Quetiapine Fumarate (Quetiapine Fumarate 25 Mg Tablet) 75 mg PO BEDTIME [facility] Last Admin: 04/27/21 20:36 Dose: 75 mg Documented by: Trazodone HCl (Trazodone Hcl 50 Mg Tablet) 50 mg PO BEDTIME PRN PRN Reason: insomnia Last Admin: 04/27/21 20:36 Dose: 50 mg Documented by: Allergies Allergies Allergy/AdvReac Type Severity Reaction Status Date / Time acetaminophen Allergy Mild UNKNOWN Verified 04/14/21 21:58 [From Darvocet-N 50] meperidine [From Demerol] Allergy Mild UNKNOWN Verified 04/14/21 21:58 Penicillins Allergy Mild UNKNOWN Verified 04/14/21 21:58 propoxyphene Allergy Mild UNKNOWN Verified 04/14/21 21:58 [From Darvocet-N 50] Sulfa (Sulfonamide Allergy Mild UNKNOWN, Verified 04/14/21 21:58 Antibiotics) HIVES penicillin V Allergy Unknown SWELLING Verified 12/28/16 00:00 Assessment & Plan Assessment & Plan (1) Bipolar 2 disorder, major depressive episode: Status: Acute Code(s): F31.81 - Bipolar II disorder (2) Opioid use disorder, moderate, in early remission: Status: Acute Code(s): F11.21 - Opioid dependence, in remission (3) PTSD (post-traumatic stress disorder): Status: Acute Code(s): F43.10 - Post-traumatic stress disorder, unspecified Plan Ms. Das is a 31 year-old woman with hx of PTSD, Bipolar 2 Disorder, opioid use disorder in recovery who self presented to [facility] reporting SI with plan to OD. She has been in [facility]- residential substance use tx program for about 8 months- recently relapsed. PLAN 1. Switch ativan to clonazepam. pt in controlled environment in program where there is less potential for abuse or misuse but will discuss in more detail with both staff at [facility] and OP psych provider, Thais Porter. 2. continue all other medications 2.5. taper off of seroquel and replace with clonidine at HS. d/c clonidine would like to try prazosin for nightmares instead. 3. Obtain collateral information 4. Aftercare planning. I spent minutes with the patient and/or on the patient floor today, greater than?50% of which was spent counseling/coordinating care.
[2021-04-28 12:01] VITALS: BP 137/81; PULSE 124; RESP 18; O2SAT 99
[2021-04-28] MEDS: cloNIDine HCL 0.1 MG TABLET PO (12:03)
[2021-04-28] MEDS: Naloxone HCl Nasal TAKE HOME 4 MG SPRAY NOSTRILALT (14:04)
== END 2021-04-28 13:45 | disposition home or self-care (01) | DRG 753 ==
LOC: HO.ED 04-15 15:44 → HO.PADLT16 04-15 23:28
PROVIDERS: Admitting Provider Psychiatry & Neurology Psychiatry; Emergency Provider Emergency Medicine; PCP Family Medicine; Visit Provider Social Worker
DX: F31.81 Bipolar II disorder (principal); R45.851 Suicidal ideations; F43.10 Post-traumatic stress disorder, unspecified; F11.20 Opioid dependence, uncomplicated; F41.9 Anxiety disorder, unspecified; F17.210 Nicotine dependence, cigarettes, uncomplicated; Z71.6 Tobacco abuse counseling; Z20.822 Contact with and (suspected) exposure to COVID-19; Z88.0 Allergy status to penicillin; Z88.2 Allergy status to sulfonamides; Z79.899 Other long term (current) drug therapy
CPT/HCPCS: 36415; 80053; 80061; 80307; 81001; 81025; 82077; 82248; 82607; 82746; 83036; 83690; 84443; 85025; 87635; 93005; 99285

== ENCOUNTER 2021-08-22 12:53 | Inpatient (IN) | payer OTHER, MEDICAID, SELFPAY ==
--- NOTE | ~2021-08-22 | XR_ITS ---
EXAMINATION: XR FEMUR-RIGHT XR FOOT-RIGHT CLINICAL INFORMATION: Trauma. Fall. COMPARISON: None TECHNIQUE: 2 views, 4 images of the right femur and 3 views of the right foot were obtained. FINDINGS: Right femur: The bony alignments are intact. The cortices are intact. The soft tissues are unremarkable. Right foot: Mild diffuse osteopenia is noted. Postsurgical changes are noted within the right hindfoot with intact hardware. Note is made of presence of deformity consistent with prior old fracture involving the superior posterior part of the calcaneus. Multilevel osteoarthrosis of the intertarsal joints is noted at mid to hindfoot. No radiographic evidence of any superimposed acute fracture, subluxation or dislocation. Soft tissue swelling along the dorsum of the right foot. XR/XR femur RT 2V IMPRESSION: 1. No radiographic evidence of any displaced fracture, subluxation or dislocation is seen involving the right femur and right foot. 2. Postsurgical changes with intact hardware involving the right hindfoot. 3. Deformity involving the posterior superior aspect of the right calcaneus likely represent old healed fracture. 4. Soft tissue swelling along the dorsum of the right foot. 5. 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
--- NOTE | ~2021-08-22 | XR_ITS ---
EXAMINATION: XR FEMUR-RIGHT XR FOOT-RIGHT CLINICAL INFORMATION: Trauma. Fall. COMPARISON: None TECHNIQUE: 2 views, 4 images of the right femur and 3 views of the right foot were obtained. FINDINGS: Right femur: The bony alignments are intact. The cortices are intact. The soft tissues are unremarkable. Right foot: Mild diffuse osteopenia is noted. Postsurgical changes are noted within the right hindfoot with intact hardware. Note is made of presence of deformity consistent with prior old fracture involving the superior posterior part of the calcaneus. Multilevel osteoarthrosis of the intertarsal joints is noted at mid to hindfoot. No radiographic evidence of any superimposed acute fracture, subluxation or dislocation. Soft tissue swelling along the dorsum of the right foot. XR/XR foot RT 2V IMPRESSION: 1. No radiographic evidence of any displaced fracture, subluxation or dislocation is seen involving the right femur and right foot. 2. Postsurgical changes with intact hardware involving the right hindfoot. 3. Deformity involving the posterior superior aspect of the right calcaneus likely represent old healed fracture. 4. Soft tissue swelling along the dorsum of the right foot. 5. 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
--- NOTE | 2021-08-22 12:58 | ED.PSYCH ---
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 She feels like she can't commit to living. Her daughter was taken away from her 6 months ago. <Derek Landis MD - Last Filed: 08/22/21 20:44> MD complaint: suicidal ideation, feels depressed, homicidal ideation and substance abuse <Derek Landis MD - Last Filed: 08/22/21 20:44> Onset (ago): week(s) <Derek Landis MD - Last Filed: 08/22/21 20:44> Duration: constant <Derek Landis MD - Last Filed: 08/22/21 20:44> History of same: Yes <Derek Landis MD - Last Filed: 08/22/21 20:44> Exacerbating factors: other (daughter is no longer in her custody) <Derek Landis MD - Last Filed: 08/22/21 20:44> Context: recent drug abuse <Derek Landis MD - Last Filed: 08/22/21 20:44> Associated psychiatric symptoms: depression and suicidal ideation <Derek Landis MD - Last Filed: 08/22/21 20:44> If self harm: admits thoughts of self harm <Derek Landis MD - Last Filed: 08/22/21 20:44> Related Data Home Medications: Home Medications Medication Instructions Recorded Confirmed methadone 10 mg/5 mL oral solution 180 mg PO DAILY 04/15/21 08/23/21 atenolol 25 mg tablet 25 mg PO DAILY 08/23/21 08/23/21 bupropion HCl 150 mg 24 hr tablet, 150 mg PO QAM 08/23/21 08/23/21 extended release bupropion HCl 300 mg 24 hr tablet, 300 mg PO QAM 08/23/21 08/23/21 extended release clonidine HCl 0.1 mg tablet 0.1 mg PO TID PRN Anxiety 08/23/21 08/23/21 folic acid 1 mg tablet 1 mg PO DAILY 08/23/21 08/23/21 hydroxyzine HCl 25 mg tablet 25 - 50 mg PO BID PRN Anxiety 08/23/21 08/23/21 lisdexamfetamine 70 mg capsule 70 mg PO DAILY 08/23/21 08/23/21 (Vyvanse) lorazepam 0.5 mg tablet 0.5 mg PO DAILY PRN Panic Attack(S) 08/23/21 08/23/21 multivitamin 1 tab PO DAILY 08/23/21 08/23/21 omeprazole 20 mg capsule,delayed 20 mg PO BID 08/23/21 08/23/21 release Previous Rx's Medication Instructions Recorded clonazepam 1 mg tablet 1 mg PO BID PRN Anxiety #30 tabs 04/27/21 gabapentin 600 mg tablet 600 mg PO TID #90 tabs 04/27/21 lurasidone 120 mg tablet (Latuda) 120 mg PO BEDTIME #30 tabs 04/27/21 quetiapine 25 mg tablet 75 mg PO BEDTIME #90 tabs 04/27/21 <Derek Landis MD - Last Filed: 08/22/21 20:44> Allergies/Adverse Reactions: Allergies Allergy/AdvReac Type Severity Reaction Status Date / Time acetaminophen Allergy Mild UNKNOWN Verified 04/14/21 21:58 [From Darvocet-N 50] meperidine [From Demerol] Allergy Mild UNKNOWN Verified 04/14/21 21:58 Penicillins Allergy Mild UNKNOWN Verified 04/14/21 21:58 propoxyphene Allergy Mild UNKNOWN Verified 04/14/21 21:58 [From Darvocet-N 50] Sulfa (Sulfonamide Allergy Mild UNKNOWN, Verified 04/14/21 21:58 Antibiotics) HIVES penicillin V Allergy Unknown SWELLING Verified 12/28/16 00:00 <Derek Landis MD - Last Filed: 08/22/21 20:44> Review of Systems Constitutional: Constitutional: Reports no additional constitutional complaints <Derek Landis MD - Last Filed: 08/22/21 20:44> Eyes: Eyes: Reports no additional eye complaints <Derek Landis MD - Last Filed: 08/22/21 20:44> ENT: Denies dizziness <Derek Landis MD - Last Filed: 08/22/21 20:44> Cardiovascular: Cardiovascular: Reports no additional cardiovascular complaints <Derek Landis MD - Last Filed: 08/22/21 20:44> Respiratory: Respiratory: Reports as per HPI <Derek Landis MD - Last Filed: 08/22/21 20:44> Gastrointestinal: Gastrointestinal: Reports no additional gastrointestinal complaints <Derek Landis MD - Last Filed: 08/22/21 20:44> Genitourinary: Genitourinary: Reports no additional female genitourinary complaints <Derek Landis MD - Last Filed: 08/22/21 20:44> Musculoskeletal: Musculoskeletal: Reports no additional musculoskeletal complaints <Derek Landis MD - Last Filed: 08/22/21 20:44> Integumentary/Breasts: Skin/Breast: Denies rash <Derek Landis MD - Last Filed: 08/22/21 20:44> Neurologic: Reports system reviewed and no additional complaints, except as documented, Denies dizziness and Denies Sensory deficit (Neuro) <Derek Landis MD - Last Filed: 08/22/21 20:44> Psychiatric: Psychiatric: Denies anxiety <Derek Landis MD - Last Filed: 08/22/21 20:44> PMFSH Past Medical History Medical History: Medical History (Updated 08/23/21 @ 09:33 by TREV Simpson) Hypertension <Derek Landis MD - Last Filed: 08/22/21 20:44> Social History Social History: Social History Household Members: Other Household Members Other:: [employer] Housing: Other Housing Other:: [facility] Do you presently have visiting nurse or other home services: No Patient Tobacco Use Status: Current everyday Tobacco user Tobacco use type: Cigarette Cigarette Packs Per Day: 1 Cigarettes Per Day: 20.0 e-Cigarette/Vaping Use: Never Used Second Hand Smoke Exposure: Yes Substance Use Type: Crack/Cocaine and Opiates Advance Directives: No Advance Directives Information Provided: No service: No Sexual orientation: Bisexual <Derek Landis MD - Last Filed: 08/22/21 20:44> Physical Exam Vital Signs: Vital Signs: Last Vital Signs Temp 97.6 F 08/22/21 15:07 Pulse 99 08/22/21 17:24 Resp 17 08/22/21 17:24 BP 100/51 L 08/22/21 17:24 Pulse Ox 94 08/22/21 17:24 O2 Del Method 08/22/21 17:24 BMI result Body Mass Index 37.8 <Derek Landis MD - Last Filed: 08/22/21 20:44> Vital Signs: Last Vital Signs Temp 97.6 F 08/22/21 15:07 Pulse 99 08/22/21 17:24 Resp 17 08/22/21 17:24 BP 100/51 L 08/22/21 17:24 Pulse Ox 94 08/22/21 17:24 O2 Del Method 08/22/21 17:24 BMI result Body Mass Index 37.8 <TREV Simpson - Last Filed: 08/23/21 09:33> Const: Other: slightly lethargic <Derek Landis MD - Last Filed: 08/22/21 20:44> Nutritional Appearance: obese <Derek Landis MD - Last Filed: 08/22/21 20:44> Orientation/consciousness: oriented to person and patient oriented x3 <Derek Landis MD - Last Filed: 08/22/21 20:44> Limitations: no limitations <Derek Landis MD - Last Filed: 08/22/21 20:44> HEENT: Head: Yes normal to inspection <Derek Landis MD - Last Filed: 08/22/21 20:44> Ears: external ears normal <Derek Landis MD - Last Filed: 08/22/21 20:44> General nose exam: Normal external nose present <Derek Landis MD - Last Filed: 08/22/21 20:44> Mouth: Normal oral and palatal mucosa present and oropharynx normal <Derek Landis MD - Last Filed: 08/22/21 20:44> Throat: Yes posterior oropharynx normal <Derek Landis MD - Last Filed: 08/22/21 20:44> Eyes: General: appearance normal, both eyes and all related structures <Derek Landis MD - Last Filed: 08/22/21 20:44> Neck: Other: supple <Derek Landis MD - Last Filed: 08/22/21 20:44> Neck: Yes normal visual inspection <Derek Landis MD - Last Filed: 08/22/21 20:44> Chest: Chest palpation & inspection: normal inspection of the chest <Derek Landis MD - Last Filed: 08/22/21 20:44> Resp: Auscultation: clear to auscultation bilaterally <Derek Landis MD - Last Filed: 08/22/21 20:44> Cardio: Jugular venous distension: no JVD <Derek Landis MD - Last Filed: 08/22/21 20:44> Rate: regular rate <Derek Landis MD - Last Filed: 08/22/21 20:44> Rhythm: regular rhythm <Derek Landis MD - Last Filed: 08/22/21 20:44> Heart sounds: S1 normal heart sound present and S2 normal heart sound present <Derek Landis MD - Last Filed: 08/22/21 20:44> GI: Inspection: Yes normal to inspection <Derek Landis MD - Last Filed: 08/22/21 20:44> Palpation (GI): Soft to palpation, nontender and No hepatosplenomegaly present <Derek Landis MD - Last Filed: 08/22/21 20:44> Auscultation: normal bowel sounds <Derek Landis MD - Last Filed: 08/22/21 20:44> : General: Yes no CVA tenderness <Derek Landis MD - Last Filed: 08/22/21 20:44> Back/Spine/Pelvis: Back: no CVA tenderness <Derek Landis MD - Last Filed: 08/22/21 20:44> Skin: General skin exam: no rashes or lesions noted <Derek Landis MD - Last Filed: 08/22/21 20:44> Neuro: General: oriented to person and patient oriented x3 <Derek Landis MD - Last Filed: 08/22/21 20:44> Cranial nerves: Yes CN's II-XII intact bilaterally <Derek Landis MD - Last Filed: 08/22/21 20:44> Motor exam (neuro): 5/5 motor strength present throughout <Derek Landis MD - Last Filed: 08/22/21 20:44> Sensory Exam: No Sensory deficit (Neuro) <Derek Landis MD - Last Filed: 08/22/21 20:44> Extrem: General: Yes normal to inspection <Derek Landis MD - Last Filed: 08/22/21 20:44> Psych: Appearance: grossly normal <Derek Landis MD - Last Filed: 08/22/21 20:44> Course Reevaluation(s) Reevaluation #1: Patient placed in physician observation at 8:40pm The indication for observation is that the patient needs more time to see if her depression improves or she will need to be admitted. At this time the patient is well developed well nourished, lungs clear, CV RRR, abd nontender, neuro is intact <Derek Landis MD - Last Filed: 08/22/21 20:44> Time: 20:44 <Derek Landis MD - Last Filed: 08/22/21 20:44> Reevaluation #2: physician observation continues. Patient was sleeping during my exam, vital signs have been stable, respirations even and regular, no apparent distress. Patient is a heroin and cocaine relapse with suicidal ideation. Nursing tells me patient says she is only suicidal when she uses. BPH and is looking at and [facility] P program, and will re-evaluate today. Patient is not on a Section. I did refer to care team for question of detox. Patient requests methadone which has been confirmed at 180 mg, I would prescribe that today. Patient has a urine that is positive for nitrite, started her on 5 days of Macrobid. Will continue to monitor <TREV Simpson - Last Filed: 08/23/21 09:33> Time: 09:31 <TREV Simpson - Last Filed: 08/23/21 09:33> MDM - Psych Lab Data Result diagrams: : 08/22/21 14:00 08/22/21 14:00 <Derek Landis MD - Last Filed: 08/22/21 20:44> Labs: Lab Results 08/22/21 08/22/21 08/22/21 Range/Units 14:00 14:00 14:00 WBC 8.0 (4.8-10.8) X10*3/uL RBC 3.77 L (4.20-5.50) X10*6/uL Hgb 9.5 L (12.0-16.0) g/dl Hct 29.9 L (37.0-47.0) % MCV 79.3 L (80.0-98.0) fL MCH 25.2 L (27.0-33.0) pg MCHC 31.8 (31.0-35.0) g/dl RDW 15.8 (11.0-16.0) % Plt Count 224 (160-400) X10*3/uL MPV 9.5 (9.4-12.3) fL Immature Gran % (Auto) 0.2 (0.0-0.4) % Neut % (Auto) 43.3 L (45-73) % Lymph % (Auto) 45.3 H (20-40) % [place] % (Auto) 10.3 (2-11) % Eos % (Auto) 0.7 (0-4) % Baso % (Auto) 0.2 (0-2) % Lymph # (Auto) 3.6 (1.2-4.9) X10*3/uL [place] # (Auto) 0.8 (0.1-1.2) X10*3/uL Eos # (Auto) 0.1 (0.0-0.4) X10*3/uL Baso # (Auto) 0.0 (0.0-0.2) X10*3/uL Abs Immat Gran (auto) 0.02 (0.00-0.03) X10*3/uL Absolute Neuts (auto) 3.5 (2.0-8.3) x10*3/uL Absolute Nucleated RBC 0.000 (0.0-0.012) X10*3/uL Nucleated RBC % (auto) 0.0 (0.0-0.2) /100WBC Sodium 138 (135-145) mmol/L Potassium 3.9 (3.3-5.1) mmol/L Chloride 104 (96-108) mmol/L Carbon Dioxide 24 (22-29) mmol/L Anion Gap 14 (12-20) BUN 17 H D (9-16) mg/dL Creatinine 0.71 (0.5-1.4) mg/dL Estim Creat Clear Calc 117.7 Estimated GFR > 60 Random Glucose 90 (60-115) mg/dL Calcium 9.1 (8.4-10.2) mg/dL Total Bilirubin 0.4 (0.0-1.0) mg/dL AST 34 H D (5-31) U/L ALT 21 (0-31) U/L Alkaline Phosphatase 98 (39-117) U/L Total Protein 7.3 (6.5-8.0) g/dL Albumin 4.1 (3.5-5.0) g/dL Urine Color Urine Appearance Urine pH (5.0-8.0) Ur Specific [place] (1.005-1.025) Urine Protein (NEG-TRACE) MG/DL Urine Glucose (UA) (NEG) MG/DL Urine Ketones (NEG) MG/DL Urine Blood (NEG) Urine Nitrite (NEG) Ur Leukocyte Esterase (NEG) Urine RBC (0) /HPF Urine WBC (0-4) /HPF Ur Squamous Epith Cells /LPF Urine Bacteria /LPF Urine Mucus /LPF Urine Test (NEGATIVE) Salicylates < 5.0 L (15-30) mg/dL Urine Opiates Screen (Not Detect) Urine Fentanyl Screen (Not Detect) Acetaminophen < 1 (<30) mcg/mL Ur Barbiturates Screen (Not Detect) Ur Phencyclidine Scrn (Not Detect) Ur Amphetamines Screen (Not Detect) U Benzodiazepines Scrn (Not Detect) Urine Cocaine Screen (Not Detect) U Marijuana (THC) Screen (Not Detect) Ethyl Alcohol < 10 mg/dL COVID-19 (AJ) (Negative) COVID-19 Clin Com 08/22/21 08/22/21 08/22/21 Range/Units 17:14 19:42 19:42 WBC (4.8-10.8) X10*3/uL RBC (4.20-5.50) X10*6/uL Hgb (12.0-16.0) g/dl Hct (37.0-47.0) % MCV (80.0-98.0) fL MCH (27.0-33.0) pg MCHC (31.0-35.0) g/dl RDW (11.0-16.0) % Plt Count (160-400) X10*3/uL MPV (9.4-12.3) fL Immature Gran % (Auto) (0.0-0.4) % Neut % (Auto) (45-73) % Lymph % (Auto) (20-40) % [place] % (Auto) (2-11) % Eos % (Auto) (0-4) % Baso % (Auto) (0-2) % Lymph # (Auto) (1.2-4.9) X10*3/uL [place] # (Auto) (0.1-1.2) X10*3/uL Eos # (Auto) (0.0-0.4) X10*3/uL Baso # (Auto) (0.0-0.2) X10*3/uL Abs Immat Gran (auto) (0.00-0.03) X10*3/uL Absolute Neuts (auto) (2.0-8.3) x10*3/uL Absolute Nucleated RBC (0.0-0.012) X10*3/uL Nucleated RBC % (auto) (0.0-0.2) /100WBC Sodium (135-145) mmol/L Potassium (3.3-5.1) mmol/L Chloride (96-108) mmol/L Carbon Dioxide (22-29) mmol/L Anion Gap (12-20) BUN (9-16) mg/dL Creatinine (0.5-1.4) mg/dL Estim Creat Clear Calc Estimated GFR Random Glucose (60-115) mg/dL Calcium (8.4-10.2) mg/dL Total Bilirubin (0.0-1.0) mg/dL AST (5-31) U/L ALT (0-31) U/L Alkaline Phosphatase (39-117) U/L Total Protein (6.5-8.0) g/dL Albumin (3.5-5.0) g/dL Urine Color Urine Appearance Urine pH (5.0-8.0) Ur Specific [place] (1.005-1.025) Urine Protein (NEG-TRACE) MG/DL Urine Glucose (UA) (NEG) MG/DL Urine Ketones (NEG) MG/DL Urine Blood (NEG) Urine Nitrite (NEG) Ur Leukocyte Esterase (NEG) Urine RBC (0) /HPF Urine WBC (0-4) /HPF Ur Squamous Epith Cells /LPF Urine Bacteria /LPF Urine Mucus /LPF Urine Test NEGATIVE (NEGATIVE) Salicylates (15-30) mg/dL Urine Opiates Screen POSITIVE H (Not Detect) Urine Fentanyl Screen POSITIVE H (Not Detect) Acetaminophen (<30) mcg/mL Ur Barbiturates Screen Not Detected (Not Detect) Ur Phencyclidine Scrn Not Detected (Not Detect) Ur Amphetamines Screen POSITIVE H (Not Detect) U Benzodiazepines Scrn POSITIVE H (Not Detect) Urine Cocaine Screen POSITIVE H (Not Detect) U Marijuana (THC) Screen Not Detected (Not Detect) Ethyl Alcohol mg/dL COVID-19 (AJ) Negative (Negative) COVID-19 Clin Com See Note 08/22/21 Range/Units 19:42 WBC (4.8-10.8) X10*3/uL RBC (4.20-5.50) X10*6/uL Hgb (12.0-16.0) g/dl Hct (37.0-47.0) % MCV (80.0-98.0) fL MCH (27.0-33.0) pg MCHC (31.0-35.0) g/dl RDW (11.0-16.0) % Plt Count (160-400) X10*3/uL MPV (9.4-12.3) fL Immature Gran % (Auto) (0.0-0.4) % Neut % (Auto) (45-73) % Lymph % (Auto) (20-40) % [place] % (Auto) (2-11) % Eos % (Auto) (0-4) % Baso % (Auto) (0-2) % Lymph # (Auto) (1.2-4.9) X10*3/uL [place] # (Auto) (0.1-1.2) X10*3/uL Eos # (Auto) (0.0-0.4) X10*3/uL Baso # (Auto) (0.0-0.2) X10*3/uL Abs Immat Gran (auto) (0.00-0.03) X10*3/uL Absolute Neuts (auto) (2.0-8.3) x10*3/uL Absolute Nucleated RBC (0.0-0.012) X10*3/uL Nucleated RBC % (auto) (0.0-0.2) /100WBC Sodium (135-145) mmol/L Potassium (3.3-5.1) mmol/L Chloride (96-108) mmol/L Carbon Dioxide (22-29) mmol/L Anion Gap (12-20) BUN (9-16) mg/dL Creatinine (0.5-1.4) mg/dL Estim Creat Clear Calc Estimated GFR Random Glucose (60-115) mg/dL Calcium (8.4-10.2) mg/dL Total Bilirubin (0.0-1.0) mg/dL AST (5-31) U/L ALT (0-31) U/L Alkaline Phosphatase (39-117) U/L Total Protein (6.5-8.0) g/dL Albumin (3.5-5.0) g/dL Urine Color YELLOW Urine Appearance HAZY Urine pH 6.0 (5.0-8.0) Ur Specific [place] >= 1.030 H (1.005-1.025) Urine Protein NEG (NEG-TRACE) MG/DL Urine Glucose (UA) NEG (NEG) MG/DL Urine Ketones 15 (NEG) MG/DL Urine Blood NEG (NEG) Urine Nitrite POS H (NEG) Ur Leukocyte Esterase NEG (NEG) Urine RBC 1-4 (0) /HPF Urine WBC 1-4 (0-4) /HPF Ur Squamous Epith Cells 1+ /LPF Urine Bacteria 4+ /LPF Urine Mucus 1+ /LPF Urine Test (NEGATIVE) Salicylates (15-30) mg/dL Urine Opiates Screen (Not Detect) Urine Fentanyl Screen (Not Detect) Acetaminophen (<30) mcg/mL Ur Barbiturates Screen (Not Detect) Ur Phencyclidine Scrn (Not Detect) Ur Amphetamines Screen (Not Detect) U Benzodiazepines Scrn (Not Detect) Urine Cocaine Screen (Not Detect) U Marijuana (THC) Screen (Not Detect) Ethyl Alcohol mg/dL COVID-19 (AJ) (Negative) COVID-19 Clin Com <Derek Landis MD - Last Filed: 08/22/21 20:44> Lab Results 08/22/21 08/22/21 08/22/21 Range/Units 14:00 14:00 14:00 WBC 8.0 (4.8-10.8) X10*3/uL RBC 3.77 L (4.20-5.50) X10*6/uL Hgb 9.5 L (12.0-16.0) g/dl Hct 29.9 L (37.0-47.0) % MCV 79.3 L (80.0-98.0) fL MCH 25.2 L (27.0-33.0) pg MCHC 31.8 (31.0-35.0) g/dl RDW 15.8 (11.0-16.0) % Plt Count 224 (160-400) X10*3/uL MPV 9.5 (9.4-12.3) fL Immature Gran % (Auto) 0.2 (0.0-0.4) % Neut % (Auto) 43.3 L (45-73) % Lymph % (Auto) 45.3 H (20-40) % [place] % (Auto) 10.3 (2-11) % Eos % (Auto) 0.7 (0-4) % Baso % (Auto) 0.2 (0-2) % Lymph # (Auto) 3.6 (1.2-4.9) X10*3/uL [place] # (Auto) 0.8 (0.1-1.2) X10*3/uL Eos # (Auto) 0.1 (0.0-0.4) X10*3/uL Baso # (Auto) 0.0 (0.0-0.2) X10*3/uL Abs Immat Gran (auto) 0.02 (0.00-0.03) X10*3/uL Absolute Neuts (auto) 3.5 (2.0-8.3) x10*3/uL Absolute Nucleated RBC 0.000 (0.0-0.012) X10*3/uL Nucleated RBC % (auto) 0.0 (0.0-0.2) /100WBC Sodium 138 (135-145) mmol/L Potassium 3.9 (3.3-5.1) mmol/L Chloride 104 (96-108) mmol/L Carbon Dioxide 24 (22-29) mmol/L Anion Gap 14 (12-20) BUN 17 H D (9-16) mg/dL Creatinine 0.71 (0.5-1.4) mg/dL Estim Creat Clear Calc 117.7 Estimated GFR > 60 Random Glucose 90 (60-115) mg/dL Calcium 9.1 (8.4-10.2) mg/dL Total Bilirubin 0.4 (0.0-1.0) mg/dL AST 34 H D (5-31) U/L ALT 21 (0-31) U/L Alkaline Phosphatase 98 (39-117) U/L Total Protein 7.3 (6.5-8.0) g/dL Albumin 4.1 (3.5-5.0) g/dL Urine Color Urine Appearance Urine pH (5.0-8.0) Ur Specific [place] (1.005-1.025) Urine Protein (NEG-TRACE) MG/DL Urine Glucose (UA) (NEG) MG/DL Urine Ketones (NEG) MG/DL Urine Blood (NEG) Urine Nitrite (NEG) Ur Leukocyte Esterase (NEG) Urine RBC (0) /HPF Urine WBC (0-4) /HPF Ur Squamous Epith Cells /LPF Urine Bacteria /LPF Urine Mucus /LPF Urine Test (NEGATIVE) Salicylates < 5.0 L (15-30) mg/dL Urine Opiates Screen (Not Detect) Urine Fentanyl Screen (Not Detect) Acetaminophen < 1 (<30) mcg/mL Ur Barbiturates Screen (Not Detect) Ur Phencyclidine Scrn (Not Detect) Ur Amphetamines Screen (Not Detect) U Benzodiazepines Scrn (Not Detect) Urine Cocaine Screen (Not Detect) U Marijuana (THC) Screen (Not Detect) Ethyl Alcohol < 10 mg/dL COVID-19 (AJ) (Negative) COVID-19 Clin Com 08/22/21 08/22/21 08/22/21 Range/Units 17:14 19:42 19:42 WBC (4.8-10.8) X10*3/uL RBC (4.20-5.50) X10*6/uL Hgb (12.0-16.0) g/dl Hct (37.0-47.0) % MCV (80.0-98.0) fL MCH (27.0-33.0) pg MCHC (31.0-35.0) g/dl RDW (11.0-16.0) % Plt Count (160-400) X10*3/uL MPV (9.4-12.3) fL Immature Gran % (Auto) (0.0-0.4) % Neut % (Auto) (45-73) % Lymph % (Auto) (20-40) % [place] % (Auto) (2-11) % Eos % (Auto) (0-4) % Baso % (Auto) (0-2) % Lymph # (Auto) (1.2-4.9) X10*3/uL [place] # (Auto) (0.1-1.2) X10*3/uL Eos # (Auto) (0.0-0.4) X10*3/uL Baso # (Auto) (0.0-0.2) X10*3/uL Abs Immat Gran (auto) (0.00-0.03) X10*3/uL Absolute Neuts (auto) (2.0-8.3) x10*3/uL Absolute Nucleated RBC (0.0-0.012) X10*3/uL Nucleated RBC % (auto) (0.0-0.2) /100WBC Sodium (135-145) mmol/L Potassium (3.3-5.1) mmol/L Chloride (96-108) mmol/L Carbon Dioxide (22-29) mmol/L Anion Gap (12-20) BUN (9-16) mg/dL Creatinine (0.5-1.4) mg/dL Estim Creat Clear Calc Estimated GFR Random Glucose (60-115) mg/dL Calcium (8.4-10.2) mg/dL Total Bilirubin (0.0-1.0) mg/dL AST (5-31) U/L ALT (0-31) U/L Alkaline Phosphatase (39-117) U/L Total Protein (6.5-8.0) g/dL Albumin (3.5-5.0) g/dL Urine Color Urine Appearance Urine pH (5.0-8.0) Ur Specific [place] (1.005-1.025) Urine Protein (NEG-TRACE) MG/DL Urine Glucose (UA) (NEG) MG/DL Urine Ketones (NEG) MG/DL Urine Blood (NEG) Urine Nitrite (NEG) Ur Leukocyte Esterase (NEG) Urine RBC (0) /HPF Urine WBC (0-4) /HPF Ur Squamous Epith Cells /LPF Urine Bacteria /LPF Urine Mucus /LPF Urine Test NEGATIVE (NEGATIVE) Salicylates (15-30) mg/dL Urine Opiates Screen POSITIVE H (Not Detect) Urine Fentanyl Screen POSITIVE H (Not Detect) Acetaminophen (<30) mcg/mL Ur Barbiturates Screen Not Detected (Not Detect) Ur Phencyclidine Scrn Not Detected (Not Detect) Ur Amphetamines Screen POSITIVE H (Not Detect) U Benzodiazepines Scrn POSITIVE H (Not Detect) Urine Cocaine Screen POSITIVE H (Not Detect) U Marijuana (THC) Screen Not Detected (Not Detect) Ethyl Alcohol mg/dL COVID-19 (AJ) Negative (Negative) COVID-19 Clin Com See Note 08/22/21 Range/Units 19:42 WBC (4.8-10.8) X10*3/uL RBC (4.20-5.50) X10*6/uL Hgb (12.0-16.0) g/dl Hct (37.0-47.0) % MCV (80.0-98.0) fL MCH (27.0-33.0) pg MCHC (31.0-35.0) g/dl RDW (11.0-16.0) % Plt Count (160-400) X10*3/uL MPV (9.4-12.3) fL Immature Gran % (Auto) (0.0-0.4) % Neut % (Auto) (45-73) % Lymph % (Auto) (20-40) % [place] % (Auto) (2-11) % Eos % (Auto) (0-4) % Baso % (Auto) (0-2) % Lymph # (Auto) (1.2-4.9) X10*3/uL [place] # (Auto) (0.1-1.2) X10*3/uL Eos # (Auto) (0.0-0.4) X10*3/uL Baso # (Auto) (0.0-0.2) X10*3/uL Abs Immat Gran (auto) (0.00-0.03) X10*3/uL Absolute Neuts (auto) (2.0-8.3) x10*3/uL Absolute Nucleated RBC (0.0-0.012) X10*3/uL Nucleated RBC % (auto) (0.0-0.2) /100WBC Sodium (135-145) mmol/L Potassium (3.3-5.1) mmol/L Chloride (96-108) mmol/L Carbon Dioxide (22-29) mmol/L Anion Gap (12-20) BUN (9-16) mg/dL Creatinine (0.5-1.4) mg/dL Estim Creat Clear Calc Estimated GFR Random Glucose (60-115) mg/dL Calcium (8.4-10.2) mg/dL Total Bilirubin (0.0-1.0) mg/dL AST (5-31) U/L ALT (0-31) U/L Alkaline Phosphatase (39-117) U/L Total Protein (6.5-8.0) g/dL Albumin (3.5-5.0) g/dL Urine Color YELLOW Urine Appearance HAZY Urine pH 6.0 (5.0-8.0) Ur Specific [place] >= 1.030 H (1.005-1.025) Urine Protein NEG (NEG-TRACE) MG/DL Urine Glucose (UA) NEG (NEG) MG/DL Urine Ketones 15 (NEG) MG/DL Urine Blood NEG (NEG) Urine Nitrite POS H (NEG) Ur Leukocyte Esterase NEG (NEG) Urine RBC 1-4 (0) /HPF Urine WBC 1-4 (0-4) /HPF Ur Squamous Epith Cells 1+ /LPF Urine Bacteria 4+ /LPF Urine Mucus 1+ /LPF Urine Test (NEGATIVE) Salicylates (15-30) mg/dL Urine Opiates Screen (Not Detect) Urine Fentanyl Screen (Not Detect) Acetaminophen (<30) mcg/mL Ur Barbiturates Screen (Not Detect) Ur Phencyclidine Scrn (Not Detect) Ur Amphetamines Screen (Not Detect) U Benzodiazepines Scrn (Not Detect) Urine Cocaine Screen (Not Detect) U Marijuana (THC) Screen (Not Detect) Ethyl Alcohol mg/dL COVID-19 (AJ) (Negative) COVID-19 Clin Com <TREV Simpson - Last Filed: 08/23/21 09:33> Imaging Data right foot and femur: Radiologist's impression: IMPRESSION: ? 1. No radiographic evidence of any displaced fracture, subluxation or dislocation is seen involving the right femur and right foot. 2. Postsurgical changes with intact hardware involving the right hindfoot. 3. Deformity involving the posterior superior aspect of the right calcaneus likely represent old healed fracture. 4. Soft tissue swelling along the dorsum of the right foot. 5. 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 <Derek Landis MD - Last Filed: 08/22/21 20:44> Discharge Plan Discharge Clinical Impression: Suicidal ideations <Derek Landis MD - Last Filed: 08/22/21 20:44> Prescriptions: No Action methadone 10 mg/5 mL Solution 180 mg PO DAILY quetiapine 25 mg Tablet 75 mg PO BEDTIME Qty: 90 0RF gabapentin 600 mg Tablet 600 mg PO TID Qty: 90 0RF clonazepam 1 mg Tablet 1 mg PO BID PRN (Reason: Anxiety) Qty: 30 0RF Latuda 120 mg tablet 120 mg PO BEDTIME Qty: 30 0RF <Derek Landis MD - Last Filed: 08/22/21 20:44>
[2021-08-22 13:16] VITALS: BP 112/74; BP 150/92; PULSE 100; PULSE 90; RESP 20; TEMP 37.1; O2SAT 100; O2SAT 93; BMI 37.8
[2021-08-22 14:08] LABS: MANUAL DIFF FLAG NO
[2021-08-22 14:11] LABS: Basophils Percent Auto 0.2 % (0-2); Eosinophils Absolute Auto 0.1 X10*3/uL (0.0-0.4); Eosinophils Percent Auto 0.7 % (0-4); Hematocrit 29.9 % (37.0-47.0); Hemoglobin 9.5 g/dl (12.0-16.0); Imm Gran Abs Auto 0.02 X10*3/uL (0.00-0.03); Imm Gran Pct Auto 0.2 % (0.0-0.4); Lymphocytes Absolute Auto 3.6 X10*3/uL (1.2-4.9); Lymphocytes Percent Auto 45.3 % (20-40); Mean Corpuscular HGB Conc 31.8 g/dl (31.0-35.0); Mean Corpuscular Hemoglobin 25.2 pg (27.0-33.0); Mean Corpuscular Volume 79.3 fL (80.0-98.0); Mean Platelet Volume 9.5 fL (9.4-12.3); Monocytes Absolute Auto 0.8 X10*3/uL (0.1-1.2); Monocytes Percent Auto 10.3 % (2-11); Neutrophils Absolute Auto 3.5 x10*3/uL (2.0-8.3); Neutrophils Percent Auto 43.3 % (45-73); Platelet Count 224 X10*3/uL (160-400); Red Blood Count 3.77 X10*6/uL (4.20-5.50); Red Cell Distribution Width 15.8 % (11.0-16.0)
[2021-08-22 14:22] LABS: Ethanol < 10 mg/dL
[2021-08-22 14:25] LABS: Acetaminophen LAB < 1 mcg/mL (<30); Alanine Aminotransferase 21 U/L (0-31); Albumin Level 4.1 g/dL (3.5-5.0); Alkaline Phosphatase 98 U/L (39-117); Anion Gap 14 (12-20); Aspartate Amino Transferase 34 U/L (5-31); Bilirubin Total 0.4 mg/dL (0.0-1.0); Blood Urea Nitrogen 17 mg/dL (9-16); Calcium 9.1 mg/dL (8.4-10.2); Carbon Dioxide 24 mmol/L (22-29); Chloride 104 mmol/L (96-108); Creatinine Clr Calc Pharmacy 117.7; Estimated Glomerular Filt Rate > 60; Glucose Random 90 mg/dL (60-115); Potassium 3.9 mmol/L (3.3-5.1); Salicylate < 5.0 mg/dL (15-30); Sodium 138 mmol/L (135-145); Total Protein 7.3 g/dL (6.5-8.0)
--- NOTE | 2021-08-22 14:58 | PC.NURSE ---
pt c/o 09/11 l side neck pain 2ndary trying to shoot up in my neck, this am .
[2021-08-22 15:07] VITALS: BP 129/80; PULSE 100; RESP 18; TEMP 36.4; O2SAT 96
[2021-08-22] MEDS: Acetaminophen 325 MG TABLET 975 MG PO (15:44)
--- NOTE | 2021-08-22 15:44 | PC.NURSE ---
Addendum entered by Jose Manuel Jimenez 08/22/21 16:06: Patient denies allergy to acetaminophen. Original Note: Boby instructed to give tylenol
--- NOTE | 2021-08-22 17:09 | PC.NURSE ---
SMART SHEET FRO BHN COMPLETED
[2021-08-22 17:24] VITALS: BP 100/51; PULSE 99; RESP 17; O2SAT 94
[2021-08-22 17:44] LABS: COVID-19 Test Negative (Negative)
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
[2021-08-22 19:52] LABS: UPreg QC Valid YES; Urine Pregnancy NEGATIVE (NEGATIVE)
[2021-08-22 20:05] LABS: Amphetamine Screen Urine POSITIVE (Not Detect); Barbiturates, Urine Not Detected (Not Detect); Benzodiazepines Screen Urine POSITIVE (Not Detect); Cannabinoid Screen Urine Not Detected (Not Detect); Cocaine Screen Urine POSITIVE (Not Detect); Fentanyl, urine POSITIVE (Not Detect); Opiate Screen Urine POSITIVE (Not Detect); Phencyclidine Screen Urine Not Detected (Not Detect)
--- NOTE | 2021-08-22 20:11 | PHA.MEDREC ---
Addendum entered by Ashlee Castaneda RPh 08/23/21 09:33: med confirmed with Daniela Original Note: Pharmacy Consult ? Medication Reconciliation Pharmacy has completed the medication reconciliation. Meds entered based on patient statement. Will followup with pharmacy in AM
--- NOTE | 2021-08-23 | ECG_ITS ---
Test Reason : CP Blood Pressure : / mmHG Vent. Rate : 090 BPM Atrial Rate : 090 BPM P-R Int : 134 ms QRS Dur : 106 ms QT Int : 374 ms P-R-T Axes : 059 077 077 degrees QTc Int : 457 ms Normal sinus rhythm Normal ECG When compared with ECG of 16-APR-2021 16:56, Incomplete right bundle branch block is no longer Present Referred By: Alis Flores Electronically Signed By:LUIZ NAVAS MD
[2021-08-23] MEDS: clonazePAM 1 MG TABLET PO ×2 (00:57→18:11)
[2021-08-23] MEDS: Gabapentin 600 MG TABLET PO ×4 (00:58→21:32)
[2021-08-23] MEDS: QUEtiapine Fumarate 25 MG TABLET 75 MG PO ×2 (00:58→21:30)
[2021-08-23] MEDS: Lurasidone HCl 80 MG TABLET 120 MG PO ×2 (01:08→21:29)
[2021-08-23 05:25] LABS: Appearance Urine HAZY; Color Urine YELLOW; Glucose Urine UA NEG (NEG); Leukocyte Esterase Urine NEG (NEG); Nitrite Urine POS (NEG); Specific Gravity - Urine >= 1.030 (1.005-1.025); Urine Blood NEG (NEG); Urine Ketones 15 MG/DL (NEG); Urine Protein NEG (NEG-TRACE)
[2021-08-23 05:31] LABS: Bacteria Urine 4+ /LPF; Squamous Epithelial Cell Urine 1+ /LPF
[2021-08-23 05:32] LABS: Mucus Urine 1+ /LPF
--- NOTE | 2021-08-23 07:24 | PC.NURSE ---
Patient slept through the night, no distress observed/reported, medication compliant, VSS, methadone dose verified, behavior non concerning at this time, patient was assessed by N, disposition pending, will continue to monitor.
--- NOTE | 2021-08-23 09:21 | PC.NURSE ---
methadone dose verified, awaiting Alis KARIMI to order 180 mg dose. per pt If it dont get my methadone soon I'm going to end up freaking the fuck out
[2021-08-23] MEDS: Nitrofurantoin Monohyd/M-Cryst 100 MG CAPSULE PO ×2 (09:45→21:32)
[2021-08-23] MEDS: methADONE HCl 20 MG/2 ML ORAL.CONC 180 MG PO (09:46)
[2021-08-23] MEDS: Omeprazole 20 MG CAPSULE.DR PO (12:35)
[2021-08-23 13:03] VITALS: BP 139/90; PULSE 85; RESP 14; TEMP 36.7; O2SAT 92
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
[2021-08-23 17:27] VITALS: BP 131/98; PULSE 106; RESP 18; TEMP 36.7; O2SAT 94
[2021-08-23 18:00] VITALS: BP 115/70; PULSE 105; TEMP 36.3; O2SAT 92
[2021-08-23] MEDS: cloNIDine HCL 0.1 MG TABLET PO (18:11)
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
[2021-08-24 05:47] VITALS: BP 114/56; PULSE 99; O2SAT 99
[2021-08-24] MEDS: Omeprazole 20 MG CAPSULE.DR PO ×2 (05:47→17:30)
[2021-08-24 08:00] VITALS: BP 129/75; PULSE 125; RESP 18; TEMP 36.3; O2SAT 96
[2021-08-24] MEDS: methADONE HCl 20 MG/2 ML ORAL.CONC 180 MG PO (08:18)
[2021-08-24] MEDS: Nicotine 21 MG PATCH.TD24 TRANSDERMA (08:21)
[2021-08-24] MEDS: Multivitamin TABLET 1 TAB PO (08:22)
[2021-08-24] MEDS: Folic Acid 1 MG TABLET PO (08:22)
[2021-08-24] MEDS: buPROPion HCl XL 150 MG TAB.ER.24H 450 MG PO (08:22)
[2021-08-24] MEDS: Gabapentin 600 MG TABLET PO ×3 (08:22→20:51)
[2021-08-24] MEDS: Nitrofurantoin Monohyd/M-Cryst 100 MG CAPSULE PO ×2 (08:22→20:51)
[2021-08-24] MEDS: clonazePAM 1 MG TABLET PO ×2 (08:26→20:52)
[2021-08-24 09:43] LABS: Estimated Average Glucose 117 mg/dL; Hemoglobin A1c % 5.7 %
[2021-08-24 09:54] LABS: Free T4 (Free Thyroxine) 0.74 ng/dL (0.71-1.85); Thyroid Stimulating Hormone 0.58 uIU/mL (0.32-4.0)
[2021-08-24 09:57] LABS: Alanine Aminotransferase 22 U/L (0-31); Albumin Level 3.8 g/dL (3.5-5.0); Alkaline Phosphatase 90 U/L (39-117); Anion Gap 11 (12-20); Bilirubin Direct < 0.2 mg/dL (0.0-0.5); Bilirubin Total 0.2 mg/dL (0.0-1.0); Blood Urea Nitrogen 12 mg/dL (9-16); Calcium 8.7 mg/dL (8.4-10.2); Carbon Dioxide 26 mmol/L (22-29); Chloride 103 mmol/L (96-108); Cholesterol 189 mg/dL; Estimated Glomerular Filt Rate > 60; Glucose Fasting 260 mg/dL (60-99); HDL Cholesterol 40 mg/dL; LDL Cholesterol Calculated 114 mg/dl; Potassium 3.8 mmol/L (3.3-5.1); Sodium 136 mmol/L (135-145); Total Protein 6.8 g/dL (6.5-8.0); Triglycerides 179 mg/dL
[2021-08-24 10:10] LABS: Folate 13.3 ng/mL (> or = 4.0); Vitamin B12 290 pg/mL (200-900)
[2021-08-24 10:16] LABS: Aspartate Amino Transferase 20 U/L (5-31)
[2021-08-24 12:00] VITALS: BP 111/62; PULSE 85; RESP 16; O2SAT 94
[2021-08-24] MEDS: Ibuprofen 600 MG TABLET PO ×2 (14:52→20:49)
[2021-08-24] MEDS: hydrOXYzine HCL 50 MG TABLET PO ×2 (14:52→20:57)
[2021-08-24] MEDS: cloNIDine HCL 0.1 MG TABLET PO ×2 (14:52→18:17)
--- NOTE | 2021-08-24 14:53 | P.PNPSI_ITS ---
Subjective Subjective Date of Service: 08/24/21 Reason For Visit: Depression Interim History: pt found lying in bed, awake. review her mtg with brian last night, plan they determined together, which was to restart previous outpt regimen. also wants miralax, which was ordered today. discussed withdrawal syndromes and likelihood she would feel depressed for some days yet from that alone and that changing medications now was premature. pt expressed understanding and had no other questions or complaints. per staff, not attending groups. tearful, quiet. was taking heroin and cocaine on top of her methadone. relapsed after 3 months of sobriety. appetite OK. struggling with loss of daughter to DCF. +SI, no plan or intent. on antibx for UTI. Mental Status Exam Mental Status Exam Narrative: A&O. Obese, unkempt. fair eye contact, attentive. No Tics or Tremors. No abnormal involuntary movements. Calm, guarded, difficult to engage. Non- pressured speech, spontaneous with regular rate and rhythm, normal volume, flattened prosody. No prolonged speech latency or dysarthria. Mood is ?depressed,? affect is constricted. no SI/HI/AVH expressed. Thoughts are coherent, organized. No known cognitive or memory impairment. Insight/ Judgment limited but adequate. Diagnostics Vital Signs (24Hr): Vital Signs - 24 hr 08/23/21 17:27 08/23/21 18:00 08/24/21 05:47 Temperature 98.1 F 97.3 F Pulse Rate 106 H 105 H 99 Respiratory Rate 18 Blood Pressure 131/98 H 115/70 114/56 L Pulse Oximetry 94 92 99 Oxygen Delivery Method Room Air Room Air Room Air 08/24/21 08:00 08/24/21 12:00 Temperature 97.4 F Pulse Rate 125 H 85 Respiratory Rate 18 16 Blood Pressure 129/75 111/62 Pulse Oximetry 96 94 Oxygen Delivery Method Room Air Room Air BMI result Body Mass Index 37.8 Labs Results: 08/22/21 14:00 08/24/21 08:48 Labs: Laboratory Results - last 48 hr 08/22/21 08/22/21 08/22/21 17:14 19:42 19:42 Sodium Potassium Chloride Carbon Dioxide Anion Gap BUN Creatinine Estim Creat Clear Calc Estimated GFR Fasting Glucose Estimat Average Glucose Hemoglobin A1c % Calcium Total Bilirubin Direct Bilirubin AST ALT Alkaline Phosphatase Total Protein Albumin Triglycerides Cholesterol LDL Cholesterol, Calc HDL Cholesterol Vitamin B12 Folate TSH Free T4 Urine Color Urine Appearance Urine pH Ur Specific [place] Urine Protein Urine Glucose (UA) Urine Ketones Urine Blood Urine Nitrite Ur Leukocyte Esterase Urine RBC Urine WBC Ur Squamous Epith Cells Urine Bacteria Urine Mucus Urine Test NEGATIVE Urine Opiates Screen POSITIVE H Urine Fentanyl Screen POSITIVE H Ur Barbiturates Screen Not Detected Ur Phencyclidine Scrn Not Detected Ur Amphetamines Screen POSITIVE H U Benzodiazepines Scrn POSITIVE H Urine Cocaine Screen POSITIVE H U Marijuana (THC) Screen Not Detected COVID-19 (AJ) Negative COVID-19 Clin Com See Note 08/22/21 08/24/21 08/24/21 19:42 08:48 08:48 Sodium 136 Potassium 3.8 Chloride 103 Carbon Dioxide 26 Anion Gap 11 L BUN 12 Creatinine 0.74 Estim Creat Clear Calc 113.0 Estimated GFR > 60 Fasting Glucose 260 H Estimat Average Glucose 117 Hemoglobin A1c % 5.7 Calcium 8.7 Total Bilirubin 0.2 Direct Bilirubin < 0.2 AST 20 D ALT 22 Alkaline Phosphatase 90 Total Protein 6.8 Albumin 3.8 Triglycerides 179 Cholesterol 189 LDL Cholesterol, Calc 114 HDL Cholesterol 40 Vitamin B12 Folate TSH 0.58 Free T4 0.74 Urine Color YELLOW Urine Appearance HAZY Urine pH 6.0 Ur Specific [place] >= 1.030 H Urine Protein NEG Urine Glucose (UA) NEG Urine Ketones 15 Urine Blood NEG Urine Nitrite POS H Ur Leukocyte Esterase NEG Urine RBC 1-4 Urine WBC 1-4 Ur Squamous Epith Cells 1+ Urine Bacteria 4+ Urine Mucus 1+ Urine Test Urine Opiates Screen Urine Fentanyl Screen Ur Barbiturates Screen Ur Phencyclidine Scrn Ur Amphetamines Screen U Benzodiazepines Scrn Urine Cocaine Screen U Marijuana (THC) Screen COVID-19 (AJ) COVID-19 Clin Com 08/24/21 08:48 Sodium Potassium Chloride Carbon Dioxide Anion Gap BUN Creatinine Estim Creat Clear Calc Estimated GFR Fasting Glucose Estimat Average Glucose Hemoglobin A1c % Calcium Total Bilirubin Direct Bilirubin AST ALT Alkaline Phosphatase Total Protein Albumin Triglycerides Cholesterol LDL Cholesterol, Calc HDL Cholesterol Vitamin B12 290 Folate 13.3 TSH Free T4 Urine Color Urine Appearance Urine pH Ur Specific [place] Urine Protein Urine Glucose (UA) Urine Ketones Urine Blood Urine Nitrite Ur Leukocyte Esterase Urine RBC Urine WBC Ur Squamous Epith Cells Urine Bacteria Urine Mucus Urine Test Urine Opiates Screen Urine Fentanyl Screen Ur Barbiturates Screen Ur Phencyclidine Scrn Ur Amphetamines Screen U Benzodiazepines Scrn Urine Cocaine Screen U Marijuana (THC) Screen COVID-19 (AJ) COVID-19 Clin Com Imaging Radiology Impressions: ITS Impressions Femur X-Ray 08/22/21 14:51 IMPRESSION: 1. No radiographic evidence of any displaced fracture, subluxation or dislocation is seen involving the right femur and right foot. 2. Postsurgical changes with intact hardware involving the right hindfoot. 3. Deformity involving the posterior superior aspect of the right calcaneus likely represent old healed fracture. 4. Soft tissue swelling along the dorsum of the right foot. 5. 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 Foot X-Ray 08/22/21 14:51 IMPRESSION: 1. No radiographic evidence of any displaced fracture, subluxation or dislocation is seen involving the right femur and right foot. 2. Postsurgical changes with intact hardware involving the right hindfoot. 3. Deformity involving the posterior superior aspect of the right calcaneus likely represent old healed fracture. 4. Soft tissue swelling along the dorsum of the right foot. 5. 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 Medications Medications Current Medications Al Hydroxide/Mg Hydroxide (Magnesium Hydrox/Alum Hydrox 30 Ml Oral.Susp) 30 ml PO Q6H PRN PRN Reason: Heartburn/Nausea Bupropion HCl (Bupropion Hcl Xl 150 Mg Tab.Er.24h) 450 mg PO DAILY [facility] Last Admin: 08/24/21 08:22 Dose: 450 mg Clonazepam (Clonazepam 1 Mg Tablet) 1 mg PO BID [facility] Clonidine HCl (Clonidine Hcl 0.1 Mg Tablet) 0.1 mg PO TID PRN; Protocol PRN Reason: Anxiety Last Admin: 08/23/21 18:11 Dose: 0.1 mg Folic Acid (Folic Acid 1 Mg Tablet) 1 mg PO DAILY [facility] Last Admin: 08/24/21 08:22 Dose: 1 mg Gabapentin (Gabapentin 600 Mg Tablet) 600 mg PO TID [facility] Last Admin: 08/24/21 08:22 Dose: 600 mg Hydroxyzine HCl (Hydroxyzine Hcl 50 Mg Tablet) 50 mg PO Q6H PRN PRN Reason: Anxiety Ibuprofen (Ibuprofen 600 Mg Tablet) 600 mg PO Q8H PRN PRN Reason: mild-mod pain Lorazepam (Lorazepam 1 Mg Tablet) 1 mg PO Q4H PRN PRN Reason: CIWA > 8 but less than 12 Lorazepam (Lorazepam 1 Mg Tablet) 2 mg PO Q4H PRN PRN Reason: CIWA > 11 Lurasidone HCl (Lurasidone Hcl 80 Mg Tablet) 120 mg PO BEDTIME [facility] Last Admin: 08/23/21 21:29 Dose: 120 mg Magnesium Hydroxide (Milk Of Magnesia 30 Ml Oral.Susp) 30 ml PO DAILY PRN PRN Reason: Constipation Methadone HCl (Methadone Hcl 20 Mg/2 Ml Oral.Conc) 180 mg PO DAILY [facility] Last Admin: 08/24/21 08:18 Dose: 180 mg Multivitamins/Vitamin C (Multivitamin Tablet) 1 tab PO DAILY [facility] Last Admin: 08/24/21 08:22 Dose: 1 tab Nicotine (Nicotine 21 Mg Patch.Td24) 21 mg TRANSDERMA DAILY [facility] Last Admin: 08/24/21 08:21 Dose: 21 mg Nicotine Polacrilex (Nicotine Polacrilex 2 Mg Gum) 4 mg BUCCAL Q2H PRN PRN Reason: Nicotine Cravings Nitrofurantoin Macrocrystals (Nitrofurantoin Monohyd/M-Cryst 100 Mg Capsule) 100 mg PO BID [facility] Stop: 08/28/21 08:00 Last Admin: 08/24/21 08:22 Dose: 100 mg Omeprazole (Omeprazole 20 Mg Capsule.Dr) 20 mg PO BID@0630,1630 [facility] Last Admin: 08/24/21 05:47 Dose: 20 mg Polyethylene Glycol (Polyethylene Glycol 3350 17 Gm Powd.Pack) 17 gm PO DAILY PRN PRN Reason: Constipation Quetiapine Fumarate (Quetiapine Fumarate 25 Mg Tablet) 75 mg PO BEDTIME [facility] Last Admin: 08/23/21 21:30 Dose: 75 mg Trazodone HCl (Trazodone Hcl 50 Mg Tablet) 50 mg PO BEDTIME PRN PRN Reason: Insomnia Allergies Allergies Allergy/AdvReac Type Severity Reaction Status Date / Time acetaminophen Allergy Mild UNKNOWN Verified 04/14/21 21:58 [From Darvocet-N 50] meperidine [From Demerol] Allergy Mild UNKNOWN Verified 04/14/21 21:58 Penicillins Allergy Mild UNKNOWN Verified 04/14/21 21:58 propoxyphene Allergy Mild UNKNOWN Verified 04/14/21 21:58 [From Darvocet-N 50] Sulfa (Sulfonamide Allergy Mild UNKNOWN, Verified 04/14/21 21:58 Antibiotics) HIVES penicillin V Allergy Unknown SWELLING Verified 12/28/16 00:00 Assessment & Plan Assessment & Plan (1) PTSD (post-traumatic stress disorder): Status: Acute Code(s): F43.10 - Post-traumatic stress disorder, unspecified (2) Opioid use disorder, moderate, in early remission: Status: Acute Code(s): F11.21 - Opioid dependence, in remission (3) MDD (major depressive disorder), recurrent episode, moderate: Status: Acute Code(s): F33.1 - Major depressive disorder, recurrent, moderate Plan Tasha is a 31 y.o. Female who carries a dx of MDD recurrent and polysubstance abuse. She presented to [facility] on [facility]/22/21 due to being found in the community due to relapsing on 4-5 bags of heroin and cocaine, has injection site on L side of her neck, endorsed SI. Precipitating factors include that her aunt 2 weeks ago from a suicide attempt and her daughter was removed from her custody and placed into adoption 6 months ago. Pt?s utox was positive for opiates, fentanyl, amphetamines (prescribed vyvanse), benzodiazepines (prescribed klonopin), and Cocaine. Plan 08/23: No medication changes, as pt reports positive benefit on her med regimen. She has situational stress and recent relapse. On methadone. 08/24: depressed, cocaine withdrawal syndrome. doesn't want to talk much. miralax added. continue regimen otherwise. I spent ___25___ minutes with the patient and/or on the patient floor today, greater than?50% of which was spent counseling/coordinating care. Reason for contiued inpatient stay Substantial Risk for: harm to self and inability to function
[2021-08-24 20:00] VITALS: BP 116/59; PULSE 88; RESP 16; TEMP 36.5; O2SAT 94
[2021-08-24] MEDS: QUEtiapine Fumarate 25 MG TABLET 75 MG PO (20:52)
[2021-08-24] MEDS: traZODone HCL 50 MG TABLET PO (20:57)
[2021-08-25] MEDS: Omeprazole 20 MG CAPSULE.DR PO ×2 (06:37→15:21)
[2021-08-25 07:00] VITALS: BMI 50.1
[2021-08-25 08:00] VITALS: BP 151/81; PULSE 104; RESP 16; TEMP 36.6; O2SAT 94
[2021-08-25] MEDS: buPROPion HCl XL 150 MG TAB.ER.24H 450 MG PO (08:28)
[2021-08-25] MEDS: cloNIDine HCL 0.1 MG TABLET PO ×3 (08:29→20:17)
[2021-08-25] MEDS: Multivitamin TABLET 1 TAB PO (08:29)
[2021-08-25] MEDS: clonazePAM 1 MG TABLET PO ×2 (08:30→15:21)
[2021-08-25] MEDS: Ibuprofen 600 MG TABLET PO ×3 (08:30→20:18)
[2021-08-25] MEDS: Folic Acid 1 MG TABLET PO (08:30)
[2021-08-25] MEDS: methADONE HCl 20 MG/2 ML ORAL.CONC 180 MG PO (08:31)
[2021-08-25] MEDS: Nitrofurantoin Monohyd/M-Cryst 100 MG CAPSULE PO ×2 (08:31→20:19)
[2021-08-25] MEDS: Gabapentin 600 MG TABLET PO ×3 (08:31→20:18)
[2021-08-25] MEDS: Nicotine 21 MG PATCH.TD24 TRANSDERMA (09:40)
[2021-08-25] MEDS: Sertraline HCL 50 MG TABLET PO (12:59)
--- NOTE | 2021-08-25 15:27 | HO.PSYCHPN ---
Subjective Subjective Date of Service: 08/25/21 Reason For Visit: Depression Interim History: pt found in her bed, agreeable to come with MD to interview room. calm, cooperative. klonopin discussed, pt prefers PRN rather than scheduled. order changed. pt reports she is very depressed. she has been aspiring to shower and wash her clothes, but she has thus far not been able to do it. she asks about medication changes for depression. meds a rereviewed and wellbutrin is her only anti-depressant medication. discuss addition of SSRI, which pt agrees to, so zoloft 50 mg daily is started. she states that in order to remain in her program she will need a letter stating her admission date and her medication change be faxed to the program. MD refers her to director community health nursing. outpt provider is bridgett lane of [facility]. per staff, moderate depression, high anxiety. +SI but won't act in the hospital. upset r.e. scheduling of klonopin. Mental Status Exam Mental Status Exam Narrative: A&O. Obese, unkempt. good eye contact, attentive. No Tics or Tremors. No abnormal involuntary movements. Calm, cooperative. Non-pressured speech, spontaneous with regular rate and rhythm, normal volume, flattened prosody. No prolonged speech latency or dysarthria. Mood is ?very depressed,? affect is constricted. no SI/HI/AVH expressed. Thoughts are coherent, organized. No known cognitive or memory impairment. Insight/ Judgment limited but adequate. Diagnostics Vital Signs (24Hr): Vital Signs - 24 hr 08/24/21 20:00 08/25/21 08:00 Temperature 97.7 F 97.9 F Pulse Rate 88 104 H Respiratory Rate 16 16 Blood Pressure 116/59 L 151/81 H Pulse Oximetry 94 94 Oxygen Delivery Method Room Air Room Air BMI result Body Mass Index 50.1 Labs Results: 08/22/21 14:00 08/24/21 08:48 Labs: Laboratory Results - last 48 hr 08/24/21 08/24/21 08/24/21 08:48 08:48 08:48 Sodium 136 Potassium 3.8 Chloride 103 Carbon Dioxide 26 Anion Gap 11 L BUN 12 Creatinine 0.74 Estim Creat Clear Calc 113.0 Estimated GFR > 60 Fasting Glucose 260 H Estimat Average Glucose 117 Hemoglobin A1c % 5.7 Calcium 8.7 Total Bilirubin 0.2 Direct Bilirubin < 0.2 AST 20 D ALT 22 Alkaline Phosphatase 90 Total Protein 6.8 Albumin 3.8 Triglycerides 179 Cholesterol 189 LDL Cholesterol, Calc 114 HDL Cholesterol 40 Vitamin B12 290 Folate 13.3 TSH 0.58 Free T4 0.74 Imaging Radiology Impressions: ITS Impressions Femur X-Ray 08/22/21 14:51 IMPRESSION: 1. No radiographic evidence of any displaced fracture, subluxation or dislocation is seen involving the right femur and right foot. 2. Postsurgical changes with intact hardware involving the right hindfoot. 3. Deformity involving the posterior superior aspect of the right calcaneus likely represent old healed fracture. 4. Soft tissue swelling along the dorsum of the right foot. 5. 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 Foot X-Ray 08/22/21 14:51 IMPRESSION: 1. No radiographic evidence of any displaced fracture, subluxation or dislocation is seen involving the right femur and right foot. 2. Postsurgical changes with intact hardware involving the right hindfoot. 3. Deformity involving the posterior superior aspect of the right calcaneus likely represent old healed fracture. 4. Soft tissue swelling along the dorsum of the right foot. 5. 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 Medications Medications Current Medications Al Hydroxide/Mg Hydroxide (Magnesium Hydrox/Alum Hydrox 30 Ml Oral.Susp) 30 ml PO Q6H PRN PRN Reason: Heartburn/Nausea Bupropion HCl (Bupropion Hcl Xl 150 Mg Tab.Er.24h) 450 mg PO DAILY [facility] Last Admin: 08/25/21 08:28 Dose: 450 mg Clonazepam (Clonazepam 1 Mg Tablet) 1 mg PO BID PRN PRN Reason: severe anxiety Last Admin: 08/25/21 15:21 Dose: 1 mg Clonidine HCl (Clonidine Hcl 0.1 Mg Tablet) 0.1 mg PO Q2H PRN; Protocol PRN Reason: Anxiety or signs/Sx opioid w/d Last Admin: 08/25/21 15:20 Dose: 0.1 mg Folic Acid (Folic Acid 1 Mg Tablet) 1 mg PO DAILY [facility] Last Admin: 08/25/21 08:30 Dose: 1 mg Gabapentin (Gabapentin 600 Mg Tablet) 600 mg PO TID [facility] Last Admin: 08/25/21 15:21 Dose: 600 mg Hydroxyzine HCl (Hydroxyzine Hcl 50 Mg Tablet) 50 mg PO Q6H PRN PRN Reason: Anxiety Last Admin: 08/24/21 20:57 Dose: 50 mg Ibuprofen (Ibuprofen 600 Mg Tablet) 600 mg PO Q8H PRN PRN Reason: mild-mod pain Last Admin: 08/25/21 08:30 Dose: 600 mg Lorazepam (Lorazepam 1 Mg Tablet) 1 mg PO Q4H PRN PRN Reason: CIWA > 8 but less than 12 Lorazepam (Lorazepam 1 Mg Tablet) 2 mg PO Q4H PRN PRN Reason: CIWA > 11 Lurasidone HCl 40 mg/ (Lurasidone HCl 80 mg) 120 mg PO BEDTIME [facility] Last Admin: 08/24/21 20:50 Dose: 120 mg Magnesium Hydroxide (Milk Of Magnesia 30 Ml Oral.Susp) 30 ml PO DAILY PRN PRN Reason: Constipation Methadone HCl (Methadone Hcl 20 Mg/2 Ml Oral.Conc) 180 mg PO DAILY [facility] Last Admin: 08/25/21 08:31 Dose: 180 mg Multivitamins/Vitamin C (Multivitamin Tablet) 1 tab PO DAILY [facility] Last Admin: 08/25/21 08:29 Dose: 1 tab Nicotine (Nicotine 21 Mg Patch.Td24) 21 mg TRANSDERMA DAILY [facility] Last Admin: 08/25/21 09:40 Dose: 21 mg Nicotine Polacrilex (Nicotine Polacrilex 2 Mg Gum) 4 mg BUCCAL Q2H PRN PRN Reason: Nicotine Cravings Nitrofurantoin Macrocrystals (Nitrofurantoin Monohyd/M-Cryst 100 Mg Capsule) 100 mg PO BID [facility] Stop: 08/28/21 08:00 Last Admin: 08/25/21 08:31 Dose: 100 mg Omeprazole (Omeprazole 20 Mg Capsule.Dr) 20 mg PO BID@0630,1630 [facility] Last Admin: 08/25/21 15:21 Dose: 20 mg Polyethylene Glycol (Polyethylene Glycol 3350 17 Gm Powd.Pack) 17 gm PO DAILY PRN PRN Reason: Constipation Quetiapine Fumarate (Quetiapine Fumarate 25 Mg Tablet) 75 mg PO BEDTIME [facility] Last Admin: 08/24/21 20:52 Dose: 75 mg Sertraline HCl (Sertraline Hcl 50 Mg Tablet) 50 mg PO DAILY [facility] Last Admin: 08/25/21 12:59 Dose: 50 mg Trazodone HCl (Trazodone Hcl 50 Mg Tablet) 50 mg PO BEDTIME PRN PRN Reason: Insomnia Last Admin: 08/24/21 20:57 Dose: 50 mg Allergies Allergies Allergy/AdvReac Type Severity Reaction Status Date / Time acetaminophen Allergy Mild UNKNOWN Verified 04/14/21 21:58 [From Darvocet-N 50] meperidine [From Demerol] Allergy Mild UNKNOWN Verified 04/14/21 21:58 Penicillins Allergy Mild UNKNOWN Verified 04/14/21 21:58 propoxyphene Allergy Mild UNKNOWN Verified 04/14/21 21:58 [From Darvocet-N 50] Sulfa (Sulfonamide Allergy Mild UNKNOWN, Verified 04/14/21 21:58 Antibiotics) HIVES penicillin V Allergy Unknown SWELLING Verified 12/28/16 00:00 Assessment & Plan Assessment & Plan (1) PTSD (post-traumatic stress disorder): Status: Acute Code(s): F43.10 - Post-traumatic stress disorder, unspecified (2) Opioid use disorder, moderate, in early remission: Status: Acute Code(s): F11.21 - Opioid dependence, in remission (3) MDD (major depressive disorder), recurrent episode, moderate: Status: Acute Code(s): F33.1 - Major depressive disorder, recurrent, moderate Plan Tasha is a 31 y.o. Female who carries a dx of MDD recurrent and polysubstance abuse. She [place] [facility] [place] due to being found in the community due to relapsing on 4-5 bags of heroin and cocaine, has injection site on L side of her neck, endorsed SI. Precipitating factors include that her aunt 2 weeks ago from a suicide attempt and her daughter was removed from her custody and placed into adoption 6 months ago. Pt?s utox was positive for opiates, fentanyl, amphetamines (prescribed vyvanse), benzodiazepines (prescribed klonopin), and Cocaine. Plan 08/23: No medication changes, as pt reports positive benefit on her med regimen. She has situational stress and recent relapse. On methadone. 08/24: depressed, cocaine withdrawal syndrome. doesn't want to talk much. miralax added. continue regimen otherwise. 08/25: out of bed, more engaging. klonopin changed back from scheduled to PRN per pt request. zoloft 50 mg daily added for depression. will plan to review meds with outpt prescriber bridgett lane of [facility] child guidance on [facility] [place]. I spent ___25___ minutes with the patient and/or on the patient floor today, greater than?50% of which was spent counseling/coordinating care. Reason for contiued inpatient stay Substantial Risk for: harm to self, inability to function and rapid decompensation
--- NOTE | 2021-08-25 16:28 | PC.NURSE ---
Pt requested a letter be faxed to her program to let them know she's currently admitted & discharge date is TBD. This RN faxed letter & medication list per pt's request to [phone] johanna Nguyễn. Received fax confirmation.
[2021-08-25] MEDS: hydrOXYzine HCL 50 MG TABLET PO (20:17)
[2021-08-25] MEDS: QUEtiapine Fumarate 25 MG TABLET 75 MG PO (20:17)
[2021-08-25] MEDS: traZODone HCL 50 MG TABLET PO (20:19)
[2021-08-26 08:41] VITALS: BP 115/57; PULSE 92; RESP 17; TEMP 36.7; O2SAT 95
[2021-08-26] MEDS: Omeprazole 20 MG CAPSULE.DR PO ×2 (08:42→15:30)
[2021-08-26] MEDS: Sertraline HCL 50 MG TABLET PO (08:42)
[2021-08-26] MEDS: buPROPion HCl XL 150 MG TAB.ER.24H 450 MG PO (08:42)
[2021-08-26] MEDS: Folic Acid 1 MG TABLET PO (08:42)
[2021-08-26] MEDS: Nitrofurantoin Monohyd/M-Cryst 100 MG CAPSULE PO ×2 (08:43→21:02)
[2021-08-26] MEDS: Nicotine 21 MG PATCH.TD24 TRANSDERMA (08:43)
[2021-08-26] MEDS: Gabapentin 600 MG TABLET PO ×3 (08:43→21:03)
[2021-08-26] MEDS: Multivitamin TABLET 1 TAB PO (08:43)
[2021-08-26] MEDS: methADONE HCl 20 MG/2 ML ORAL.CONC 180 MG PO (08:44)
[2021-08-26] MEDS: Ibuprofen 600 MG TABLET PO ×2 (11:28→21:03)
[2021-08-26] MEDS: cloNIDine HCL 0.1 MG TABLET PO ×3 (11:28→21:04)
[2021-08-26] MEDS: clonazePAM 1 MG TABLET PO ×2 (11:28→15:46)
--- NOTE | 2021-08-26 15:08 | HO.PSYCHPN ---
Subjective Subjective Date of Service: 08/26/21 Reason For Visit: Depression Interim History: no substantial change in presentation. remains in bed, states she is depressed, discuss cocaine withdrawal, giving her some time to sleep and recover, meeting again on sunday to see where she is re her mood and physical state. asks for tylenol in addition to ibuprofen for pain. per staff, sleeping throughout the day, some difficulty sleeping at night. guarded, isolative. eating and taking meds. Mental Status Exam Mental Status Exam Narrative: A&O. Obese, unkempt. good eye contact, attentive. No Tics or Tremors. No abnormal involuntary movements. Calm, cooperative. Non-pressured speech, spontaneous with regular rate and rhythm, normal volume, flattened prosody. No prolonged speech latency or dysarthria. Mood is depressed,? affect is constricted. no SI/HI/AVH expressed. Thoughts are coherent, organized. No known cognitive or memory impairment. Insight/ Judgment limited but adequate. Diagnostics Vital Signs (24Hr): Vital Signs - 24 hr 08/26/21 08:41 Temperature 98.1 F Pulse Rate 92 Respiratory Rate 17 Blood Pressure 115/57 L Pulse Oximetry 95 Oxygen Delivery Method Room Air BMI result Body Mass Index 50.1 Labs Results: 08/22/21 14:00 08/24/21 08:48 Imaging Radiology Impressions: ITS Impressions Femur X-Ray 08/22/21 14:51 IMPRESSION: 1. No radiographic evidence of any displaced fracture, subluxation or dislocation is seen involving the right femur and right foot. 2. Postsurgical changes with intact hardware involving the right hindfoot. 3. Deformity involving the posterior superior aspect of the right calcaneus likely represent old healed fracture. 4. Soft tissue swelling along the dorsum of the right foot. 5. 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 Foot X-Ray 08/22/21 14:51 IMPRESSION: 1. No radiographic evidence of any displaced fracture, subluxation or dislocation is seen involving the right femur and right foot. 2. Postsurgical changes with intact hardware involving the right hindfoot. 3. Deformity involving the posterior superior aspect of the right calcaneus likely represent old healed fracture. 4. Soft tissue swelling along the dorsum of the right foot. 5. 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 Medications Medications Current Medications Acetaminophen (Acetaminophen 325 Mg Tablet) 650 mg PO Q6H PRN PRN Reason: Pain, Mild (Pain Scale 1-3) Al Hydroxide/Mg Hydroxide (Magnesium Hydrox/Alum Hydrox 30 Ml Oral.Susp) 30 ml PO Q6H PRN PRN Reason: Heartburn/Nausea Bupropion HCl (Bupropion Hcl Xl 150 Mg Tab.Er.24h) 450 mg PO DAILY [facility] Last Admin: 08/26/21 08:42 Dose: 450 mg Clonazepam (Clonazepam 1 Mg Tablet) 1 mg PO BID PRN PRN Reason: severe anxiety Last Admin: 08/26/21 11:28 Dose: 1 mg Clonidine HCl (Clonidine Hcl 0.1 Mg Tablet) 0.1 mg PO Q2H PRN; Protocol PRN Reason: Anxiety or signs/Sx opioid w/d Last Admin: 08/26/21 11:28 Dose: 0.1 mg Folic Acid (Folic Acid 1 Mg Tablet) 1 mg PO DAILY [facility] Last Admin: 08/26/21 08:42 Dose: 1 mg Gabapentin (Gabapentin 600 Mg Tablet) 600 mg PO TID [facility] Last Admin: 08/26/21 08:43 Dose: 600 mg Hydroxyzine HCl (Hydroxyzine Hcl 50 Mg Tablet) 50 mg PO Q6H PRN PRN Reason: Anxiety Last Admin: 08/25/21 20:17 Dose: 50 mg Ibuprofen (Ibuprofen 600 Mg Tablet) 600 mg PO Q8H PRN PRN Reason: mild-mod pain Last Admin: 08/26/21 11:28 Dose: 600 mg Lorazepam (Lorazepam 1 Mg Tablet) 1 mg PO Q4H PRN PRN Reason: CIWA > 8 but less than 12 Lorazepam (Lorazepam 1 Mg Tablet) 2 mg PO Q4H PRN PRN Reason: CIWA > 11 Lurasidone HCl 40 mg/ (Lurasidone HCl 80 mg) 120 mg PO BEDTIME [facility] Last Admin: 08/25/21 20:19 Dose: 120 mg Magnesium Hydroxide (Milk Of Magnesia 30 Ml Oral.Susp) 30 ml PO DAILY PRN PRN Reason: Constipation Methadone HCl (Methadone Hcl 20 Mg/2 Ml Oral.Conc) 180 mg PO DAILY [facility] Last Admin: 08/26/21 08:44 Dose: 180 mg Multivitamins/Vitamin C (Multivitamin Tablet) 1 tab PO DAILY [facility] Last Admin: 08/26/21 08:43 Dose: 1 tab Nicotine (Nicotine 21 Mg Patch.Td24) 21 mg TRANSDERMA DAILY [facility] Last Admin: 08/26/21 08:43 Dose: 21 mg Nicotine Polacrilex (Nicotine Polacrilex 2 Mg Gum) 4 mg BUCCAL Q2H PRN PRN Reason: Nicotine Cravings Nitrofurantoin Macrocrystals (Nitrofurantoin Monohyd/M-Cryst 100 Mg Capsule) 100 mg PO BID [facility] Stop: 08/28/21 08:00 Last Admin: 08/26/21 08:43 Dose: 100 mg Omeprazole (Omeprazole 20 Mg Capsule.Dr) 20 mg PO BID@0630,1630 [facility] Last Admin: 08/26/21 08:42 Dose: 20 mg Polyethylene Glycol (Polyethylene Glycol 3350 17 Gm Powd.Pack) 17 gm PO DAILY PRN PRN Reason: Constipation Quetiapine Fumarate (Quetiapine Fumarate 25 Mg Tablet) 75 mg PO BEDTIME [facility] Last Admin: 08/25/21 20:17 Dose: 75 mg Sertraline HCl (Sertraline Hcl 50 Mg Tablet) 50 mg PO DAILY [facility] Last Admin: 08/26/21 08:42 Dose: 50 mg Trazodone HCl (Trazodone Hcl 50 Mg Tablet) 50 mg PO BEDTIME PRN PRN Reason: Insomnia Last Admin: 08/25/21 20:19 Dose: 50 mg Allergies Allergies Allergy/AdvReac Type Severity Reaction Status Date / Time acetaminophen Allergy Mild UNKNOWN Verified 04/14/21 21:58 [From Darvocet-N 50] meperidine [From Demerol] Allergy Mild UNKNOWN Verified 04/14/21 21:58 Penicillins Allergy Mild UNKNOWN Verified 04/14/21 21:58 propoxyphene Allergy Mild UNKNOWN Verified 04/14/21 21:58 [From Darvocet-N 50] Sulfa (Sulfonamide Allergy Mild UNKNOWN, Verified 04/14/21 21:58 Antibiotics) HIVES penicillin V Allergy Unknown SWELLING Verified 12/28/16 00:00 Assessment & Plan Assessment & Plan (1) PTSD (post-traumatic stress disorder): Status: Acute Code(s): F43.10 - Post-traumatic stress disorder, unspecified (2) Opioid use disorder, moderate, in early remission: Status: Acute Code(s): F11.21 - Opioid dependence, in remission (3) MDD (major depressive disorder), recurrent episode, moderate: Status: Acute Code(s): F33.1 - Major depressive disorder, recurrent, moderate Plan Tasha is a 31 y.o. Female who carries a dx of MDD recurrent and polysubstance abuse. She presented to [facility] ED on 08/22/21 due to being found in the community due to relapsing on 4-5 bags of heroin and cocaine, has injection site on L side of her neck, endorsed SI. Precipitating factors include that her aunt 2 weeks ago from a suicide attempt and her daughter was removed from her custody and placed into adoption 6 months ago. Pt?s utox was positive for opiates, fentanyl, amphetamines (prescribed vyvanse), benzodiazepines (prescribed klonopin), and Cocaine. Plan 08/23: No medication changes, as pt reports positive benefit on her med regimen. She has situational stress and recent relapse. On methadone. 08/24: depressed, cocaine withdrawal syndrome. doesn't want to talk much. miralax added. continue regimen otherwise. 08/25: out of bed, more engaging. klonopin changed back from scheduled to PRN per pt request. zoloft 50 mg daily added for depression. will plan to review meds with outpt prescriber bridgett lane of [facility] child guidance on [address] in [place]. 08/26: no change in presentation. tylenol added to ibuprofen for pains. cocaine detox and opioid recalibration continue. I spent ___25___ minutes with the patient and/or on the patient floor today, greater than?50% of which was spent counseling/coordinating care. Reason for contiued inpatient stay Substantial Risk for: harm to self, inability to function and rapid decompensation
[2021-08-26 15:39] VITALS: BP 124/65; PULSE 81
[2021-08-26] MEDS: Acetaminophen 325 MG TABLET 650 MG PO (15:45)
[2021-08-26 20:56] VITALS: BP 111/65; PULSE 88; RESP 18; TEMP 36.6; O2SAT 96
[2021-08-26] MEDS: hydrOXYzine HCL 50 MG TABLET PO (21:02)
[2021-08-26] MEDS: QUEtiapine Fumarate 25 MG TABLET 75 MG PO (21:02)
[2021-08-26] MEDS: traZODone HCL 50 MG TABLET PO (21:02)
[2021-08-27] MEDS: Omeprazole 20 MG CAPSULE.DR PO ×2 (06:45→16:40)
[2021-08-27 09:00] VITALS: BP 145/67; PULSE 103; RESP 18; TEMP 36.4; O2SAT 95
[2021-08-27] MEDS: Nicotine 21 MG PATCH.TD24 TRANSDERMA (09:24)
[2021-08-27] MEDS: methADONE HCl 20 MG/2 ML ORAL.CONC 180 MG PO (09:25)
[2021-08-27] MEDS: Nitrofurantoin Monohyd/M-Cryst 100 MG CAPSULE PO ×2 (09:25→20:23)
[2021-08-27] MEDS: Gabapentin 600 MG TABLET PO ×3 (09:25→20:24)
[2021-08-27] MEDS: Folic Acid 1 MG TABLET PO (09:25)
[2021-08-27] MEDS: buPROPion HCl XL 150 MG TAB.ER.24H 450 MG PO (09:25)
[2021-08-27] MEDS: Multivitamin TABLET 1 TAB PO (09:25)
[2021-08-27] MEDS: Sertraline HCL 50 MG TABLET PO (09:25)
[2021-08-27] MEDS: polyethylene glycoL 3350 17 GM POWD.PACK PO (09:33)
[2021-08-27] MEDS: cloNIDine HCL 0.1 MG TABLET PO ×5 (09:34→20:20)
--- NOTE | 2021-08-27 11:43 | HO.PSYCHPN ---
Subjective Subjective Date of Service: 08/27/21 Reason For Visit: Depression Subjective Notes: Conditional Voluntary Interim History: no significant change in presentation. reports depressed mood, In bed much of day. per staff, sleeping throughout the day, some difficulty sleeping at night. guarded, isolative. eating and taking meds. Medication Compliance: Yes Side effects from medications: No Attending Groups: No Review of Systems Acute medical concerns: No Review of Systems Review of Systems CVS: No c/o chest pain, palpitations, no SOB [employer]: No c/o dizziness, headache GI: No c/o Nausea, Vomiting, diarrhea, constipation or heartburn Constitutional: Reports no additional constitutional complaints Eyes: Reports no additional eye complaints Denies dizziness Cardiovascular: Reports no additional cardiovascular complaints Respiratory: Reports as per HPI Gastrointestinal: Reports no additional gastrointestinal complaints Musculoskeletal: Reports no additional musculoskeletal complaints Skin/Breast: Denies rash Reports system reviewed and no additional complaints, except as documented, Denies dizziness and Denies Sensory deficit (Neuro) Psychiatric: Denies anxiety Mental Status Exam Mental Status Exam Narrative: A&O. Obese, unkempt. good eye contact, attentive. No Tics or Tremors. No abnormal involuntary movements. Calm, cooperative. Non-pressured speech, spontaneous with regular rate and rhythm, normal volume, flattened prosody. No prolonged speech latency or dysarthria. Mood is depressed,? affect is constricted. no SI/HI/AVH expressed. Thoughts are coherent, organized. No known cognitive or memory impairment. Insight/ Judgment limited but adequate. Diagnostics Vital Signs (24Hr): Vital Signs - 24 hr 08/26/21 15:39 08/26/21 20:56 08/27/21 09:00 Temperature 97.9 F 97.6 F Pulse Rate 81 88 103 H Respiratory Rate 18 18 Blood Pressure 124/65 111/65 145/67 H Pulse Oximetry 96 95 Oxygen Delivery Method Room Air Room Air BMI result Body Mass Index 50.1 Labs Results: 08/22/21 14:00 08/24/21 08:48 Imaging Radiology Impressions: ITS Impressions Femur X-Ray 08/22/21 14:51 IMPRESSION: 1. No radiographic evidence of any displaced fracture, subluxation or dislocation is seen involving the right femur and right foot. 2. Postsurgical changes with intact hardware involving the right hindfoot. 3. Deformity involving the posterior superior aspect of the right calcaneus likely represent old healed fracture. 4. Soft tissue swelling along the dorsum of the right foot. 5. 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 Foot X-Ray 08/22/21 14:51 IMPRESSION: 1. No radiographic evidence of any displaced fracture, subluxation or dislocation is seen involving the right femur and right foot. 2. Postsurgical changes with intact hardware involving the right hindfoot. 3. Deformity involving the posterior superior aspect of the right calcaneus likely represent old healed fracture. 4. Soft tissue swelling along the dorsum of the right foot. 5. 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 Medications Medications Current Medications Acetaminophen (Acetaminophen 325 Mg Tablet) 650 mg PO Q6H PRN PRN Reason: Pain, Mild (Pain Scale 1-3) Last Admin: 08/26/21 15:45 Dose: 650 mg Al Hydroxide/Mg Hydroxide (Magnesium Hydrox/Alum Hydrox 30 Ml Oral.Susp) 30 ml PO Q6H PRN PRN Reason: Heartburn/Nausea Bupropion HCl (Bupropion Hcl Xl 150 Mg Tab.Er.24h) 450 mg PO DAILY [facility] Last Admin: 08/27/21 09:25 Dose: 450 mg Clonazepam (Clonazepam 1 Mg Tablet) 1 mg PO BID PRN PRN Reason: severe anxiety Last Admin: 08/26/21 15:46 Dose: 1 mg Clonidine HCl (Clonidine Hcl 0.1 Mg Tablet) 0.1 mg PO Q2H PRN; Protocol PRN Reason: Anxiety or signs/Sx opioid w/d Last Admin: 08/27/21 09:34 Dose: 0.1 mg Folic Acid (Folic Acid 1 Mg Tablet) 1 mg PO DAILY [facility] Last Admin: 08/27/21 09:25 Dose: 1 mg Gabapentin (Gabapentin 600 Mg Tablet) 600 mg PO TID [facility] Last Admin: 08/27/21 09:25 Dose: 600 mg Hydroxyzine HCl (Hydroxyzine Hcl 50 Mg Tablet) 50 mg PO Q6H PRN PRN Reason: Anxiety Last Admin: 08/26/21 21:02 Dose: 50 mg Ibuprofen (Ibuprofen 600 Mg Tablet) 600 mg PO Q8H PRN PRN Reason: mild-mod pain Last Admin: 08/26/21 21:03 Dose: 600 mg Lorazepam (Lorazepam 1 Mg Tablet) 1 mg PO Q4H PRN PRN Reason: CIWA > 8 but less than 12 Lorazepam (Lorazepam 1 Mg Tablet) 2 mg PO Q4H PRN PRN Reason: CIWA > 11 Lurasidone HCl 40 mg/ (Lurasidone HCl 80 mg) 120 mg PO BEDTIME [facility] Last Admin: 08/26/21 21:02 Dose: 120 mg Magnesium Hydroxide (Milk Of Magnesia 30 Ml Oral.Susp) 30 ml PO DAILY PRN PRN Reason: Constipation Methadone HCl (Methadone Hcl 20 Mg/2 Ml Oral.Conc) 180 mg PO DAILY [facility] Last Admin: 08/27/21 09:25 Dose: 180 mg Multivitamins/Vitamin C (Multivitamin Tablet) 1 tab PO DAILY [facility] Last Admin: 08/27/21 09:25 Dose: 1 tab Nicotine (Nicotine 21 Mg Patch.Td24) 21 mg TRANSDERMA DAILY [facility] Last Admin: 08/27/21 09:24 Dose: 21 mg Nicotine Polacrilex (Nicotine Polacrilex 2 Mg Gum) 4 mg BUCCAL Q2H PRN PRN Reason: Nicotine Cravings Nitrofurantoin Macrocrystals (Nitrofurantoin Monohyd/M-Cryst 100 Mg Capsule) 100 mg PO BID [facility] Stop: 08/28/21 08:00 Last Admin: 08/27/21 09:25 Dose: 100 mg Omeprazole (Omeprazole 20 Mg Capsule.Dr) 20 mg PO BID@0630,1630 [facility] Last Admin: 08/27/21 06:45 Dose: 20 mg Polyethylene Glycol (Polyethylene Glycol 3350 17 Gm Powd.Pack) 17 gm PO DAILY PRN PRN Reason: Constipation Last Admin: 08/27/21 09:33 Dose: 17 gm Quetiapine Fumarate (Quetiapine Fumarate 25 Mg Tablet) 75 mg PO BEDTIME [facility] Last Admin: 08/26/21 21:02 Dose: 75 mg Sertraline HCl (Sertraline Hcl 50 Mg Tablet) 50 mg PO DAILY [facility] Last Admin: 08/27/21 09:25 Dose: 50 mg Trazodone HCl (Trazodone Hcl 50 Mg Tablet) 50 mg PO BEDTIME PRN PRN Reason: Insomnia Last Admin: 08/26/21 21:02 Dose: 50 mg Allergies Allergies Allergy/AdvReac Type Severity Reaction Status Date / Time acetaminophen Allergy Mild UNKNOWN Verified 04/14/21 21:58 [From Darvocet-N 50] meperidine [From Demerol] Allergy Mild UNKNOWN Verified 04/14/21 21:58 Penicillins Allergy Mild UNKNOWN Verified 04/14/21 21:58 propoxyphene Allergy Mild UNKNOWN Verified 04/14/21 21:58 [From Darvocet-N 50] Sulfa (Sulfonamide Allergy Mild UNKNOWN, Verified 04/14/21 21:58 Antibiotics) HIVES penicillin V Allergy Unknown SWELLING Verified 12/28/16 00:00 Assessment & Plan Assessment & Plan (1) PTSD (post-traumatic stress disorder): Status: Acute Code(s): F43.10 - Post-traumatic stress disorder, unspecified (2) Opioid use disorder, moderate, in early remission: Status: Acute Code(s): F11.21 - Opioid dependence, in remission (3) MDD (major depressive disorder), recurrent episode, moderate: Status: Acute Code(s): F33.1 - Major depressive disorder, recurrent, moderate Plan Tasha is a 31 y.o. Female who carries a dx of MDD recurrent and polysubstance abuse. She presented to [facility] ED on 08/22/21 due to being found in the community due to relapsing on 4-5 bags of heroin and cocaine, has injection site on L side of her neck, endorsed SI. Precipitating factors include that her aunt 2 weeks ago from a suicide attempt and her daughter was removed from her custody and placed into adoption 6 months ago. Pt?s utox was positive for opiates, fentanyl, amphetamines (prescribed vyvanse), benzodiazepines (prescribed klonopin), and Cocaine. Plan 08/23: No medication changes, as pt reports positive benefit on her med regimen. She has situational stress and recent relapse. On methadone. 08/24: depressed, cocaine withdrawal syndrome. doesn't want to talk much. miralax added. continue regimen otherwise. 08/25: out of bed, more engaging. klonopin changed back from scheduled to PRN per pt request. zoloft 50 mg daily added for depression. will plan to review meds with outpt prescriber bridgett lane of [facility] child guidance on [facility] in [place]. 08/26: no change in presentation. tylenol added to ibuprofen for pains. cocaine detox and opioid recalibration continue. 08/27 continue treatment plan I spent minutes with the patient and/or on the patient floor today, greater than?50% of which was spent counseling/coordinating care. Reason for contiued inpatient stay Substantial Risk for: harm to self, inability to function and rapid decompensation
[2021-08-27] MEDS: clonazePAM 1 MG TABLET PO ×2 (13:02→20:20)
[2021-08-27] MEDS: Acetaminophen 325 MG TABLET 650 MG PO (13:02)
[2021-08-27] MEDS: hydrOXYzine HCL 50 MG TABLET PO ×2 (16:44→20:25)
[2021-08-27 19:04] VITALS: BP 121/65; PULSE 96
[2021-08-27] MEDS: Ibuprofen 600 MG TABLET PO ×2 (19:05→20:26)
[2021-08-27] MEDS: QUEtiapine Fumarate 25 MG TABLET 75 MG PO (20:19)
[2021-08-27] MEDS: traZODone HCL 50 MG TABLET PO (20:24)
[2021-08-28 08:30] VITALS: BP 115/65; PULSE 80; RESP 16; TEMP 36.8; O2SAT 95
[2021-08-28] MEDS: Nicotine 21 MG PATCH.TD24 TRANSDERMA (08:40)
[2021-08-28] MEDS: Gabapentin 600 MG TABLET PO ×3 (08:41→20:38)
[2021-08-28] MEDS: Folic Acid 1 MG TABLET PO (08:41)
[2021-08-28] MEDS: buPROPion HCl XL 150 MG TAB.ER.24H 450 MG PO (08:41)
[2021-08-28] MEDS: Sertraline HCL 50 MG TABLET PO (08:42)
[2021-08-28] MEDS: Multivitamin TABLET 1 TAB PO (08:42)
[2021-08-28] MEDS: Omeprazole 20 MG CAPSULE.DR PO ×2 (08:43→17:53)
[2021-08-28] MEDS: methADONE HCl 20 MG/2 ML ORAL.CONC 180 MG PO (08:43)
[2021-08-28] MEDS: cloNIDine HCL 0.1 MG TABLET PO ×2 (08:50→17:53)
[2021-08-28] MEDS: clonazePAM 1 MG TABLET PO ×2 (08:50→17:53)
--- NOTE | 2021-08-28 17:24 | P.PNPSI_ITS ---
Subjective Subjective Date of Service: 08/28/21 Reason For Visit: Depression Interim History: reports depressed mood, In bed much of day. per staff, sleeping throughout the day, pt states she didn't sleep last night but staff report pt slept through night; pt reports SI but no plan or intent; feels safe on unit; eating and taking meds. 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 ODD: No c/o dizziness, headache GI: No c/o Nausea, Vomiting, diarrhea, constipation or heartburn Constitutional: Reports no additional constitutional complaints Eyes: Reports no additional eye complaints Denies dizziness Cardiovascular: Reports no additional cardiovascular complaints Respiratory: Reports as per HPI Gastrointestinal: Reports no additional gastrointestinal complaints Musculoskeletal: Reports no additional musculoskeletal complaints Skin/Breast: Denies rash Reports system reviewed and no additional complaints, except as documented, Denies dizziness and Denies Sensory deficit (Neuro) Psychiatric: Denies anxiety Mental Status Exam Mental Status Exam Narrative: A&O. Obese, unkempt. good eye contact, attentive. No Tics or Tremors. No abnormal involuntary movements. Calm, cooperative. Non-pressured speech, spontaneous with regular rate and rhythm, normal volume, flattened prosody. No prolonged speech latency or dysarthria. Mood is depressed,? affect is constricted. no SI/HI/AVH expressed. Thoughts are coherent, organized. No known cognitive or memory impairment. Insight/ Judgment limited but adequate. Diagnostics Vital Signs (24Hr): Vital Signs - 24 hr 08/27/21 19:04 08/28/21 08:30 Temperature 98.3 F Pulse Rate 96 80 Respiratory Rate 16 Blood Pressure 121/65 115/65 Pulse Oximetry 95 Oxygen Delivery Method Room Air BMI result Body Mass Index 50.1 Labs Results: 08/22/21 14:00 08/24/21 08:48 Imaging Radiology Impressions: ITS Impressions Femur X-Ray 08/22/21 14:51 IMPRESSION: 1. No radiographic evidence of any displaced fracture, subluxation or dislocation is seen involving the right femur and right foot. 2. Postsurgical changes with intact hardware involving the right hindfoot. 3. Deformity involving the posterior superior aspect of the right calcaneus likely represent old healed fracture. 4. Soft tissue swelling along the dorsum of the right foot. 5. 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 Foot X-Ray 08/22/21 14:51 IMPRESSION: 1. No radiographic evidence of any displaced fracture, subluxation or dislocation is seen involving the right femur and right foot. 2. Postsurgical changes with intact hardware involving the right hindfoot. 3. Deformity involving the posterior superior aspect of the right calcaneus likely represent old healed fracture. 4. Soft tissue swelling along the dorsum of the right foot. 5. 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 Medications Medications Current Medications Acetaminophen (Acetaminophen 325 Mg Tablet) 650 mg PO Q6H PRN PRN Reason: Pain, Mild (Pain Scale 1-3) Last Admin: 08/27/21 13:02 Dose: 650 mg Al Hydroxide/Mg Hydroxide (Magnesium Hydrox/Alum Hydrox 30 Ml Oral.Susp) 30 ml PO Q6H PRN PRN Reason: Heartburn/Nausea Bupropion HCl (Bupropion Hcl Xl 150 Mg Tab.Er.24h) 450 mg PO DAILY [facility] Last Admin: 08/28/21 08:41 Dose: 450 mg Clonazepam (Clonazepam 1 Mg Tablet) 1 mg PO BID PRN PRN Reason: severe anxiety Last Admin: 08/28/21 08:50 Dose: 1 mg Clonidine HCl (Clonidine Hcl 0.1 Mg Tablet) 0.1 mg PO Q2H PRN; Protocol PRN Reason: Anxiety or signs/Sx opioid w/d Last Admin: 08/28/21 08:50 Dose: 0.1 mg Folic Acid (Folic Acid 1 Mg Tablet) 1 mg PO DAILY [facility] Last Admin: 08/28/21 08:41 Dose: 1 mg Gabapentin (Gabapentin 600 Mg Tablet) 600 mg PO TID [facility] Last Admin: 08/28/21 15:28 Dose: 600 mg Hydroxyzine HCl (Hydroxyzine Hcl 50 Mg Tablet) 50 mg PO Q6H PRN PRN Reason: Anxiety Last Admin: 08/27/21 20:25 Dose: 50 mg Ibuprofen (Ibuprofen 600 Mg Tablet) 600 mg PO Q8H PRN PRN Reason: mild-mod pain Last Admin: 08/27/21 20:26 Dose: 600 mg Lorazepam (Lorazepam 1 Mg Tablet) 1 mg PO Q4H PRN PRN Reason: CIWA > 8 but less than 12 Lorazepam (Lorazepam 1 Mg Tablet) 2 mg PO Q4H PRN PRN Reason: CIWA > 11 Lurasidone HCl 40 mg/ (Lurasidone HCl 80 mg) 120 mg PO BEDTIME [facility] Last Admin: 08/27/21 20:25 Dose: 120 mg Magnesium Hydroxide (Milk Of Magnesia 30 Ml Oral.Susp) 30 ml PO DAILY PRN PRN Reason: Constipation Methadone HCl (Methadone Hcl 20 Mg/2 Ml Oral.Conc) 180 mg PO DAILY [facility] Last Admin: 08/28/21 08:43 Dose: 180 mg Multivitamins/Vitamin C (Multivitamin Tablet) 1 tab PO DAILY [facility] Last Admin: 08/28/21 08:42 Dose: 1 tab Nicotine (Nicotine 21 Mg Patch.Td24) 21 mg TRANSDERMA DAILY [facility] Last Admin: 08/28/21 08:40 Dose: 21 mg Nicotine Polacrilex (Nicotine Polacrilex 2 Mg Gum) 4 mg BUCCAL Q2H PRN PRN Reason: Nicotine Cravings Omeprazole (Omeprazole 20 Mg Capsule.Dr) 20 mg PO BID@0630,1630 [facility] Last Admin: 08/28/21 08:43 Dose: 20 mg Polyethylene Glycol (Polyethylene Glycol 3350 17 Gm Powd.Pack) 17 gm PO DAILY PRN PRN Reason: Constipation Last Admin: 08/27/21 09:33 Dose: 17 gm Quetiapine Fumarate (Quetiapine Fumarate 25 Mg Tablet) 75 mg PO BEDTIME [facility] Last Admin: 08/27/21 20:19 Dose: 75 mg Sertraline HCl (Sertraline Hcl 50 Mg Tablet) 50 mg PO DAILY [facility] Last Admin: 08/28/21 08:42 Dose: 50 mg Trazodone HCl (Trazodone Hcl 50 Mg Tablet) 50 mg PO BEDTIME PRN PRN Reason: Insomnia Last Admin: 08/27/21 20:24 Dose: 50 mg Allergies Allergies Allergy/AdvReac Type Severity Reaction Status Date / Time acetaminophen Allergy Mild UNKNOWN Verified 04/14/21 21:58 [From Darvocet-N 50] meperidine [From Demerol] Allergy Mild UNKNOWN Verified 04/14/21 21:58 Penicillins Allergy Mild UNKNOWN Verified 04/14/21 21:58 propoxyphene Allergy Mild UNKNOWN Verified 04/14/21 21:58 [From Darvocet-N 50] Sulfa (Sulfonamide Allergy Mild UNKNOWN, Verified 04/14/21 21:58 Antibiotics) HIVES penicillin V Allergy Unknown SWELLING Verified 12/28/16 00:00 Assessment & Plan Assessment & Plan (1) PTSD (post-traumatic stress disorder): Status: Acute Code(s): F43.10 - Post-traumatic stress disorder, unspecified (2) Opioid use disorder, moderate, in early remission: Status: Acute Code(s): F11.21 - Opioid dependence, in remission (3) MDD (major depressive disorder), recurrent episode, moderate: Status: Acute Code(s): F33.1 - Major depressive disorder, recurrent, moderate Plan Tasha is a 31 y.o. Female who carries a dx of MDD recurrent and polysubstance abuse. She presented to [facility] ED on 08/22/21 due to being found in the community due to relapsing on 4-5 bags of heroin and cocaine, has injection site on L side of her neck, endorsed SI. Precipitating factors include that her aunt 2 weeks ago from a suicide attempt and her daughter was removed from her custody and placed into adoption 6 months ago. Pt?s utox was positive for opiates, fentanyl, amphetamines (prescribed vyvanse), benzodiazepines (prescribed klonopin), and Cocaine. Plan 08/23: No medication changes, as pt reports positive benefit on her med regimen. She has situational stress and recent relapse. On methadone. 08/24: depressed, cocaine withdrawal syndrome. doesn't want to talk much. miralax added. continue regimen otherwise. 08/25: out of bed, more engaging. klonopin changed back from scheduled to PRN per pt request. zoloft 50 mg daily added for depression. will plan to review meds with outpt prescriber bridgett lane of [facility] child guidance on [facility] in [place]. 08/26: no change in presentation. tylenol added to ibuprofen for pains. cocaine detox and opioid recalibration continue. 08/27 continue treatment plan 08/28 Continue treatment plan I spent minutes with the patient and/or on the patient floor today, greater than?50% of which was spent counseling/coordinating care. Reason for contiued inpatient stay Substantial Risk for: harm to self, inability to function and rapid decompens ation
[2021-08-28] MEDS: Ibuprofen 600 MG TABLET PO (17:55)
[2021-08-28 19:52] VITALS: BP 114/52; PULSE 78; RESP 16; TEMP 36.6; O2SAT 95
[2021-08-28] MEDS: QUEtiapine Fumarate 25 MG TABLET 75 MG PO (20:37)
[2021-08-28] MEDS: traZODone HCL 50 MG TABLET PO (20:38)
[2021-08-28] MEDS: hydrOXYzine HCL 50 MG TABLET PO (20:38)
[2021-08-29 06:00] VITALS: BP 134/83; PULSE 105; RESP 14; TEMP 36.8; O2SAT 96
[2021-08-29] MEDS: methADONE HCl 20 MG/2 ML ORAL.CONC 180 MG PO (09:43)
[2021-08-29] MEDS: cloNIDine HCL 0.1 MG TABLET PO ×4 (09:45→21:06)
[2021-08-29] MEDS: Nicotine 21 MG PATCH.TD24 TRANSDERMA (09:45)
[2021-08-29] MEDS: Ibuprofen 600 MG TABLET PO ×2 (09:46→21:00)
[2021-08-29] MEDS: Folic Acid 1 MG TABLET PO (09:46)
[2021-08-29] MEDS: Gabapentin 600 MG TABLET PO ×3 (09:46→20:59)
[2021-08-29] MEDS: buPROPion HCl XL 150 MG TAB.ER.24H 450 MG PO (09:46)
[2021-08-29] MEDS: Omeprazole 20 MG CAPSULE.DR PO ×2 (09:46→17:42)
[2021-08-29] MEDS: Sertraline HCL 50 MG TABLET PO (09:46)
[2021-08-29] MEDS: Multivitamin TABLET 1 TAB PO (10:37)
[2021-08-29] MEDS: clonazePAM 1 MG TABLET PO ×2 (11:23→18:48)
[2021-08-29] MEDS: Acetaminophen 325 MG TABLET 650 MG PO ×2 (11:23→17:41)
[2021-08-29] MEDS: hydrOXYzine HCL 50 MG TABLET PO ×2 (11:24→18:49)
--- NOTE | 2021-08-29 15:36 | P.PNPSI_ITS ---
Subjective Subjective Date of Service: 08/29/21 Reason For Visit: Depression Interim History: found sleeping on her bed mid-morning, easily rousable to voice. states she will be discharging tomorrow, about which she is not happy, but it is preferable to losing her bed at the program she is at, which would be the alternative. states she remains very depressed, but is feeling better than when she was admitted. per staff, spent yesterday in bed. getting clonidine and klonopin. c/o poor sleep. i had a good day, i'm starting to feel better. Mental Status Exam Mental Status Exam Narrative: A&O. Obese, unkempt. good eye contact, attentive. No Tics or Tremors. No abnormal involuntary movements. Calm, cooperative. Non-pressured speech, spontaneous with regular rate and rhythm, normal volume, flattened prosody. No prolonged speech latency or dysarthria. Mood is very depressed,? affect is constricted. no SI/HI/AVH expressed. Thoughts are coherent, organized. No known cognitive or memory impairment. Insight/ Judgment limited but adequate. Diagnostics Vital Signs (24Hr): Vital Signs - 24 hr 08/28/21 19:52 08/29/21 06:00 Temperature 97.8 F 98.3 F Pulse Rate 78 105 H Respiratory Rate 16 14 Blood Pressure 114/52 L 134/83 Pulse Oximetry 95 96 Oxygen Delivery Method Room Air Room Air BMI result Body Mass Index 50.1 Labs Results: 08/22/21 14:00 08/24/21 08:48 Imaging Radiology Impressions: ITS Impressions Femur X-Ray 08/22/21 14:51 IMPRESSION: 1. No radiographic evidence of any displaced fracture, subluxation or dislocation is seen involving the right femur and right foot. 2. Postsurgical changes with intact hardware involving the right hindfoot. 3. Deformity involving the posterior superior aspect of the right calcaneus likely represent old healed fracture. 4. Soft tissue swelling along the dorsum of the right foot. 5. 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 Foot X-Ray 08/22/21 14:51 IMPRESSION: 1. No radiographic evidence of any displaced fracture, subluxation or dislocation is seen involving the right femur and right foot. 2. Postsurgical changes with intact hardware involving the right hindfoot. 3. Deformity involving the posterior superior aspect of the right calcaneus likely represent old healed fracture. 4. Soft tissue swelling along the dorsum of the right foot. 5. 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 Medications Medications Current Medications Acetaminophen (Acetaminophen 325 Mg Tablet) 650 mg PO Q6H PRN PRN Reason: Pain, Mild (Pain Scale 1-3) Last Admin: 08/29/21 11:23 Dose: 650 mg Al Hydroxide/Mg Hydroxide (Magnesium Hydrox/Alum Hydrox 30 Ml Oral.Susp) 30 ml PO Q6H PRN PRN Reason: Heartburn/Nausea Bupropion HCl (Bupropion Hcl Xl 150 Mg Tab.Er.24h) 450 mg PO DAILY [facility] Last Admin: 08/29/21 09:46 Dose: 450 mg Clonazepam (Clonazepam 1 Mg Tablet) 1 mg PO BID PRN PRN Reason: severe anxiety Last Admin: 08/29/21 11:23 Dose: 1 mg Clonidine HCl (Clonidine Hcl 0.1 Mg Tablet) 0.1 mg PO Q2H PRN; Protocol PRN Reason: Anxiety or signs/Sx opioid w/d Last Admin: 08/29/21 14:31 Dose: 0.1 mg Folic Acid (Folic Acid 1 Mg Tablet) 1 mg PO DAILY [facility] Last Admin: 08/29/21 09:46 Dose: 1 mg Gabapentin (Gabapentin 600 Mg Tablet) 600 mg PO TID [facility] Last Admin: 08/29/21 14:31 Dose: 600 mg Hydroxyzine HCl (Hydroxyzine Hcl 50 Mg Tablet) 50 mg PO Q6H PRN PRN Reason: Anxiety Last Admin: 08/29/21 11:24 Dose: 50 mg Ibuprofen (Ibuprofen 600 Mg Tablet) 600 mg PO Q8H PRN PRN Reason: mild-mod pain Last Admin: 08/29/21 09:46 Dose: 600 mg Lurasidone HCl 40 mg/ (Lurasidone HCl 80 mg) 120 mg PO BEDTIME [facility] Last Admin: 08/28/21 20:38 Dose: 120 mg Magnesium Hydroxide (Milk Of Magnesia 30 Ml Oral.Susp) 30 ml PO DAILY PRN PRN Reason: Constipation Methadone HCl (Methadone Hcl 20 Mg/2 Ml Oral.Conc) 180 mg PO DAILY [facility] Last Admin: 08/29/21 09:43 Dose: 180 mg Multivitamins/Vitamin C (Multivitamin Tablet) 1 tab PO DAILY [facility] Last Admin: 08/29/21 10:37 Dose: 1 tab Nicotine (Nicotine 21 Mg Patch.Td24) 21 mg TRANSDERMA DAILY [facility] Last Admin: 08/29/21 09:45 Dose: 21 mg Nicotine Polacrilex (Nicotine Polacrilex 2 Mg Gum) 4 mg BUCCAL Q2H PRN PRN Reason: Nicotine Cravings Omeprazole (Omeprazole 20 Mg Capsule.Dr) 20 mg PO BID@0630,1630 [facility] Last Admin: 08/29/21 09:46 Dose: 20 mg Polyethylene Glycol (Polyethylene Glycol 3350 17 Gm Powd.Pack) 17 gm PO DAILY PRN PRN Reason: Constipation Last Admin: 08/27/21 09:33 Dose: 17 gm Quetiapine Fumarate (Quetiapine Fumarate 25 Mg Tablet) 75 mg PO BEDTIME [facility] Last Admin: 08/28/21 20:37 Dose: 75 mg Sertraline HCl (Sertraline Hcl 50 Mg Tablet) 50 mg PO DAILY [facility] Last Admin: 08/29/21 09:46 Dose: 50 mg Trazodone HCl (Trazodone Hcl 50 Mg Tablet) 50 mg PO BEDTIME PRN PRN Reason: Insomnia Last Admin: 08/28/21 20:38 Dose: 50 mg Allergies Allergies Allergy/AdvReac Type Severity Reaction Status Date / Time acetaminophen Allergy Mild UNKNOWN Verified 04/14/21 21:58 [From Darvocet-N 50] meperidine [From Demerol] Allergy Mild UNKNOWN Verified 04/14/21 21:58 Penicillins Allergy Mild UNKNOWN Verified 04/14/21 21:58 propoxyphene Allergy Mild UNKNOWN Verified 04/14/21 21:58 [From Darvocet-N 50] Sulfa (Sulfonamide Allergy Mild UNKNOWN, Verified 04/14/21 21:58 Antibiotics) HIVES penicillin V Allergy Unknown SWELLING Verified 12/28/16 00:00 Assessment & Plan Assessment & Plan (1) PTSD (post-traumatic stress disorder): Status: Acute Code(s): F43.10 - Post-traumatic stress disorder, unspecified (2) Opioid use disorder, moderate, in early remission: Status: Acute Code(s): F11.21 - Opioid dependence, in remission (3) MDD (major depressive disorder), recurrent episode, moderate: Status: Acute Code(s): F33.1 - Major depressive disorder, recurrent, moderate Plan Tasha is a 31 y.o. Female who carries a dx of MDD recurrent and polysubstance abuse. She presented to [facility] ED on 08/22/21 due to being found in the community due to relapsing on 4-5 bags of heroin and cocaine, has injection site on L side of her neck, endorsed SI. Precipitating factors include that her aunt 2 weeks ago from a suicide attempt and her daughter was removed from her custody and placed into adoption 6 months ago. Pt?s utox was positive for opiates, fentanyl, amphetamines (prescribed vyvanse), benzodiazepines (prescribed klonopin), and Cocaine. Plan 08/23: No medication changes, as pt reports positive benefit on her med regimen. She has situational stress and recent relapse. On methadone. 08/24: depressed, cocaine withdrawal syndrome. doesn't want to talk much. miralax added. continue regimen otherwise. 08/25: out of bed, more engaging. klonopin changed back from scheduled to PRN per pt request. zoloft 50 mg daily added for depression. will plan to review meds with outpt prescriber bridgett lane of [facility] child guidance on [facility] [place]. 08/26: no change in presentation. tylenol added to ibuprofen for pains. cocaine detox and opioid recalibration continue. 08/27 continue treatment plan 08/28 Continue treatment plan 08/29: continue current mgmt. discharge tomorrow. I spent ___25___ minutes with the patient and/or on the patient floor today, greater than?50% of which was spent counseling/coordinating care. Reason for contiued inpatient stay Substantial Risk for: inability to function and rapid decompensation
[2021-08-29] MEDS: traZODone HCL 50 MG TABLET PO (21:00)
[2021-08-29] MEDS: QUEtiapine Fumarate 25 MG TABLET 75 MG PO (21:00)
[2021-08-29 21:05] VITALS: BP 118/62; PULSE 86; RESP 16; TEMP 36.5; O2SAT 98
[2021-08-30 08:45] VITALS: BP 126/80; PULSE 90; RESP 16; TEMP 36.6; O2SAT 99
[2021-08-30] MEDS: methADONE HCl 20 MG/2 ML ORAL.CONC 180 MG PO (08:51)
[2021-08-30] MEDS: buPROPion HCl XL 150 MG TAB.ER.24H 450 MG PO (08:56)
[2021-08-30] MEDS: Gabapentin 600 MG TABLET PO (08:56)
[2021-08-30] MEDS: Omeprazole 20 MG CAPSULE.DR PO (08:57)
[2021-08-30] MEDS: Folic Acid 1 MG TABLET PO (08:57)
[2021-08-30] MEDS: Multivitamin TABLET 1 TAB PO (08:57)
[2021-08-30] MEDS: cloNIDine HCL 0.1 MG TABLET PO (08:57)
[2021-08-30] MEDS: Sertraline HCL 50 MG TABLET PO (08:58)
[2021-08-30] MEDS: Ibuprofen 600 MG TABLET PO (08:58)
[2021-08-30] MEDS: clonazePAM 1 MG TABLET PO (10:15)
[2021-08-30] MEDS: Acetaminophen 325 MG TABLET 650 MG PO (10:15)
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
== END 2021-08-30 11:22 | disposition other institution (70) | DRG 751 ==
LOC: HO.ED 08-23 09:45 → HO.PADLT16 08-23 17:00
PROVIDERS: Admitting Provider Psychiatry & Neurology Psychiatry; Emergency Provider Emergency Medicine; PCP Family Medicine; Visit Provider Psychiatry & Neurology Psychiatry
DX: F33.1 Major depressive disorder, recurrent, moderate (principal); R45.851 Suicidal ideations; Z68.43 Body mass index [BMI] 50.0-59.9, adult; E66.9 Obesity, unspecified; F11.20 Opioid dependence, uncomplicated; F43.10 Post-traumatic stress disorder, unspecified; F17.210 Nicotine dependence, cigarettes, uncomplicated; F17.290 Nicotine dependence, other tobacco product, uncomplicated; Z71.6 Tobacco abuse counseling; Z20.822 Contact with and (suspected) exposure to COVID-19; Z88.0 Allergy status to penicillin; Z88.2 Allergy status to sulfonamides; Z88.6 Allergy status to analgesic agent; Z88.8 Allergy status to other drugs, medicaments and biological substances; Z79.899 Other long term (current) drug therapy
CPT/HCPCS: 36415; 73552; 73620; 80053; 80061; 80076; 80143; 80179; 80307; 81001; 81025; 82077; 82607; 82746; 83036; 84439; 84443; 85025; 87635; 93005; 99285

== ENCOUNTER 2022-03-13 17:47 | Inpatient (IN) | payer MEDICAID, OTHER, SELFPAY ==
--- NOTE | 2022-03-13 17:51 | ED.PSYCH ---
HPI - Psych General Chief Complaint: Psychiatric Symptoms Stated Complaint: SI (no plan at this time) per EMS Time Seen by Provider: 03/13/22 17:48 Source: patient and EMS Mode of arrival: EMS Limitations: no limitations History of Present Illness HPI Narrative: 32-year-old female presents via EMS from [facility] for suicidal ideation. Patient requested to present to [facility] for psychiatric evaluation MD complaint: suicidal ideation and feels depressed Onset (ago): year(s) Duration: constant History of same: Yes Relieving factors: none Associated psychiatric symptoms: suicidal ideation Associated symptoms: denies other symptoms If self harm: admits thoughts of self harm Related Data Home Medications Medication Instructions Recorded Confirmed methadone 10 mg/5 mL oral solution 180 mg PO DAILY 04/15/21 08/23/21 atenolol 25 mg tablet 25 mg PO DAILY 08/23/21 03/13/22 bupropion HCl 150 mg 24 hr tablet, 150 mg PO QAM 08/23/21 03/13/22 extended release bupropion HCl 300 mg 24 hr tablet, 300 mg PO QAM 08/23/21 03/13/22 extended release clonidine HCl 0.1 mg tablet 0.2 mg PO TID PRN Anxiety 08/23/21 03/13/22 folic acid 1 mg tablet 1 mg PO DAILY 08/23/21 03/13/22 hydroxyzine HCl 25 mg tablet 25 - 50 mg PO BID PRN Anxiety 08/23/21 03/13/22 lisdexamfetamine 70 mg capsule 70 mg PO DAILY@1200 08/23/21 03/13/22 (Vyvanse) multivitamin 1 tab PO DAILY 08/23/21 03/13/22 omeprazole 20 mg capsule,delayed 20 mg PO BID 08/23/21 03/13/22 release clonidine HCl 0.2 mg tablet 0.4 mg PO BEDTIME 03/13/22 03/13/22 fluticasone propionate 50 1 spray intranasal BID 03/13/22 03/13/22 mcg/actuation nasal spray,suspension hydrochlorothiazide 12.5 mg tablet 12.5 mg PO DAILY 03/13/22 03/13/22 metformin 500 mg tablet 500 mg PO BID 03/13/22 03/13/22 nicotine (polacrilex) 2 mg buccal 2 mg buccal Q2H PRN Nicotine 03/13/22 03/13/22 lozenge Cravings pyridoxine (vitamin B6) 50 mg 50 mg PO DAILY 03/13/22 03/13/22 tablet Previous Rx's Medication Instructions Recorded clonazepam 1 mg tablet 1 mg PO BID PRN Anxiety #30 tabs 04/27/21 gabapentin 600 mg tablet 600 mg PO TID #90 tabs 04/27/21 lurasidone 120 mg tablet (Latuda) 120 mg PO BEDTIME #30 tabs 04/27/21 quetiapine 25 mg tablet 75 mg PO BEDTIME #90 tabs 04/27/21 sertraline 50 mg tablet 50 mg PO DAILY 30 days #30 tabs 08/30/21 Allergies Allergy/AdvReac Type Severity Reaction Status Date / Time acetaminophen Allergy Mild UNKNOWN Verified 08/31/21 06:57 [From Darvocet-N 50] meperidine [From Demerol] Allergy Mild UNKNOWN Verified 08/31/21 06:57 Penicillins Allergy Mild UNKNOWN Verified 08/31/21 06:57 propoxyphene Allergy Mild UNKNOWN Verified 08/31/21 06:57 [From Darvocet-N 50] Sulfa (Sulfonamide Allergy Mild UNKNOWN, Verified 08/31/21 06:57 Antibiotics) HIVES penicillin V Allergy Unknown SWELLING Verified 08/31/21 06:57 Review of Systems Review of Systems: Constitutional: No Fever, No Chills Cardiovascular: No Chest Pain, No SOB Respiratory: No Cough, No Sputum, No Dyspnea Gastrointestinal: No Nausea, No Vomiting, No Diarrhea Genitourinary: No Dysuria, No Urinary Frequency, No Hematuria Musculoskeletal: No Myalgias Skin: No Skin Lesions, No rash Neuro: No Weakness, No Numbness, No Paresthesias, No Dizziness, No Headache Psych: positive Anxiety, positive Depression, positive SI Yes all other systems are reviewed and are negative PMFSH Past Medical History Attestation statement: The following information was validated with the patient. Source: old records reviewed Medical History Hypertension Social History Social History Household Members: Other Household Members Other:: Live at a program Housing: House Housing Other:: [facility] Do you presently have visiting nurse or other home services: No Patient Tobacco Use Status: Current everyday Tobacco user Tobacco use type: Cigarette and Smokeless Tobacco Cigarette Packs Per Day: 1 Cigarettes Per Day: 2 Years Smoked: 12 e-Cigarette/Vaping Use: Currently Using Second Hand Smoke Exposure: No Substance Use Type: Amphetamines, Crack/Cocaine, Heroin and Opiates Advance Directives: No Advance Directives Information Provided: Yes Guardian: No service: No Sexual orientation: Don't Know Physical Exam Vital Signs: Vital Signs: Last Vital Signs Temp 100.6 F H 03/13/22 22:44 Pulse 106 H 03/13/22 22:44 Resp 20 03/13/22 22:44 BP 132/74 03/13/22 22:44 Pulse Ox 93 03/13/22 22:44 O2 Del Method 03/13/22 22:44 BMI result Body Mass Index 44.4 Appearance: Alert. Oriented X3. No acute distress. Eyes: Pupils equal, round and reactive to light. ENT: Pharynx normal. Neck: Normal inspection. Neck supple. CVS: Normal heart rate and rhythm. Pulses normal. Respiratory: No respiratory distress. Breath sounds normal. Abdomen: Soft and nontender. Obese. Skin: Skin warm and dry. Normal skin color. Normal skin turgor. Extremities: Gait well balanced well coordinated. Neuro: No motor deficit. No sensory deficit. Cranial nerves 2-12 intact. Course Course Course Narrative: 32-year-old female presents via EMS from [facility] for suicidal ideation. Patient has been admitted to this facility in the past for bipolar 2 disorder major depressive disorder, and substance abuse. Patient states to be suicidal, but does not disclose a plan. She also reports recurrent UTIs and would like her urine tested. Patient is polite and cooperative, will order labs, crisis eval, and COVID testing. 23:32 care team consult complete, plan is for inpatient psychiatry. Medications Administered Generic Name Dose Route Start Last Admin Trade Name Freq PRN Reason Stop Dose Admin Bupropion HCl 150 mg 03/13/22 21:45 03/13/22 22:36 Bupropion Hcl Xl 150 Mg Tab.Er.24h PO Not Given DAILY AMELIE Bupropion HCl 300 mg 03/13/22 21:45 03/13/22 22:36 Bupropion Hcl Xl 300 Mg Tab.Er.24h PO Not Given DAILY AMELIE Clonazepam 1 mg 03/13/22 21:43 03/13/22 22:35 Clonazepam 1 Mg Tablet PO 1 mg BID PRN Administration Anxiety Clonidine HCl 0.4 mg 03/13/22 21:45 03/13/22 22:42 Clonidine Hcl 0.2 Mg Tablet PO 0.4 mg BEDTIME AMELIE Administration Protocol Fluticasone Propionate 1 spray 03/13/22 21:45 03/13/22 22:36 Fluticasone Propionate Nasal 16 Gm [place] NOSTRIL-B Not Given BID AMELIE Gabapentin 600 mg 03/13/22 21:45 03/13/22 22:35 Gabapentin 600 Mg Tablet PO 600 mg TID AMELIE Administration Lurasidone HCl 120 mg 03/13/22 22:00 03/13/22 22:35 Lurasidone Hcl 40 Mg Tablet PO 120 mg BEDTIME AMELIE Administration Metformin HCl 500 mg 03/13/22 21:45 03/13/22 22:35 Metformin Hcl 500 Mg Tablet PO 500 mg BID AMELIE Administration Omeprazole 20 mg 03/13/22 21:45 03/13/22 22:35 Omeprazole 20 Mg Capsule. PO 20 mg BID@0630,8350 AMELIE Administration Quetiapine Fumarate 75 mg 03/13/22 21:45 03/13/22 22:35 Quetiapine Fumarate 25 Mg Tablet PO 75 mg BEDTIME AMELIE Administration Discontinued Medications Generic Name Dose Route Start Last Admin Trade Name Arthur PRN Reason Stop Dose Admin Acetaminophen 975 mg 03/13/22 22:42 03/13/22 22:46 Acetaminophen 325 Mg Tablet PO 03/13/22 22:43 975 mg ONCE ONE Administration Medical Decision Making Differential Diagnosis Differential Diagnoses: The differential diagnosis associated with the presentation includes Psychosis, suicidal ideation, depression Admission/Observation Consideration of admission/observation: Escalation of care including admission/observation considered Inpatient bed search Consult Healthcare Provider Management of the patient was discussed with: Behavioral Health Provider Lab Data MDM Lab Attestation statement: I reviewed the patient's lab results. 03/13/22 20:49 03/13/22 20:49 Labs: Lab Results 03/13/22 03/13/22 03/13/22 Range/Units 18:22 18:22 18:22 WBC (4.8-10.8) X10*3/uL RBC (4.20-5.50) X10*6/uL Hgb (12.0-16.0) g/dl Hct (37.0-47.0) % MCV (80.0-98.0) fL MCH (27.0-33.0) pg MCHC (31.0-35.0) g/dl RDW (11.0-16.0) % Plt Count (160-400) X10*3/uL MPV (9.4-12.3) fL Immature Gran % (Auto) (0.0-0.4) % Neut % (Auto) (45-73) % Lymph % (Auto) (20-40) % [place] % (Auto) (2-11) % Eos % (Auto) (0-4) % Baso % (Auto) (0-2) % Lymph # (Auto) (1.2-4.9) X10*3/uL [place] # (Auto) (0.1-1.2) X10*3/uL Eos # (Auto) (0.0-0.4) X10*3/uL Baso # (Auto) (0.0-0.2) X10*3/uL Abs Immat Gran (auto) (0.00-0.03) X10*3/uL Absolute Neuts (auto) (2.0-8.3) x10*3/uL Absolute Nucleated RBC (0.0-0.012) X10*3/uL Nucleated RBC % (auto) (0.0-0.2) /100WBC Sodium (135-145) mmol/L Potassium (3.3-5.1) mmol/L Chloride (96-108) mmol/L Carbon Dioxide (22-29) mmol/L Anion Gap (12-20) BUN (9-16) mg/dL Creatinine (0.5-1.4) mg/dL Estim Creat Clear Calc Estimated GFR Random Glucose (60-115) mg/dL Calcium (8.4-10.2) mg/dL Total Bilirubin (0.0-1.0) mg/dL AST (5-31) U/L ALT (0-31) U/L Alkaline Phosphatase (39-117) U/L B-Natriuretic Peptide (<100) pg/mL Total Protein (6.5-8.0) g/dL Albumin (3.5-5.0) g/dL Urine Color Yellow Urine Appearance Clear Urine pH 8.0 (5.0-9.0) Ur Specific [place] 1.025 (1.005-1.025) Urine Protein 30 (1+) H (Neg-Trace) mg/dL Urine Glucose (UA) 100 H (Negative) mg/dL Urine Ketones Trace (Negative) mg/dL Urine Blood Negative (Negative) Urine Nitrite Negative (Negative) Ur Leukocyte Esterase Negative (Negative) Urine RBC 0-2 (0-2) /HPF Urine WBC 0-5 (0-5) /HPF Ur Squamous Epith Cells 6-10 (0-2) /HPF Urine Bacteria 1+ (None Seen) Hyaline Casts 0-2 (0-2) /LPF Urine Test NEGATIVE (NEGATIVE) Urine Opiates Screen (Not Detect) Urine Fentanyl Screen (Not Detect) Ur Barbiturates Screen (Not Detect) Ur Phencyclidine Scrn (Not Detect) Ur Amphetamines Screen (Not Detect) U Benzodiazepines Scrn (Not Detect) Urine Cocaine Screen (Not Detect) U Marijuana (THC) Screen (Not Detect) COVID-19 (AJ) Negative (Negative) COVID-19 Clin Com See Note 03/13/22 03/13/22 03/13/22 Range/Units 18:22 20:49 20:49 WBC 5.9 (4.8-10.8) X10*3/uL RBC 4.24 (4.20-5.50) X10*6/uL Hgb 9.4 L (12.0-16.0) g/dl Hct 31.4 L (37.0-47.0) % MCV 74.1 L (80.0-98.0) fL MCH 22.2 L (27.0-33.0) pg MCHC 29.9 L (31.0-35.0) g/dl RDW 15.3 (11.0-16.0) % Plt Count 175 (160-400) X10*3/uL MPV 10.2 (9.4-12.3) fL Immature Gran % (Auto) 0.5 H (0.0-0.4) % Neut % (Auto) 64.7 (45-73) % Lymph % (Auto) 28.6 (20-40) % [place] % (Auto) 5.8 (2-11) % Eos % (Auto) 0.2 (0-4) % Baso % (Auto) 0.2 (0-2) % Lymph # (Auto) 1.7 (1.2-4.9) X10*3/uL [place] # (Auto) 0.3 (0.1-1.2) X10*3/uL Eos # (Auto) 0.0 (0.0-0.4) X10*3/uL Baso # (Auto) 0.0 (0.0-0.2) X10*3/uL Abs Immat Gran (auto) 0.03 (0.00-0.03) X10*3/uL Absolute Neuts (auto) 3.8 (2.0-8.3) x10*3/uL Absolute Nucleated RBC 0.000 (0.0-0.012) X10*3/uL Nucleated RBC % (auto) 0.0 (0.0-0.2) /100WBC Sodium 135 (135-145) mmol/L Potassium 3.7 (3.3-5.1) mmol/L Chloride 100 (96-108) mmol/L Carbon Dioxide 26 (22-29) mmol/L Anion Gap 13 (12-20) BUN 11 (9-16) mg/dL Creatinine 0.67 (0.5-1.4) mg/dL Estim Creat Clear Calc 135.7 Estimated GFR > 60 Random Glucose 222 H (60-115) mg/dL Calcium 8.1 L D (8.4-10.2) mg/dL Total Bilirubin 0.4 (0.0-1.0) mg/dL AST 20 (5-31) U/L ALT 17 (0-31) U/L Alkaline Phosphatase 80 (39-117) U/L B-Natriuretic Peptide (<100) pg/mL Total Protein 6.5 (6.5-8.0) g/dL Albumin 3.5 (3.5-5.0) g/dL Urine Color Urine Appearance Urine pH (5.0-9.0) Ur Specific [place] (1.005-1.025) Urine Protein (Neg-Trace) mg/dL Urine Glucose (UA) (Negative) mg/dL Urine Ketones (Negative) mg/dL Urine Blood (Negative) Urine Nitrite (Negative) Ur Leukocyte Esterase (Negative) Urine RBC (0-2) /HPF Urine WBC (0-5) /HPF Ur Squamous Epith Cells (0-2) /HPF Urine Bacteria (None Seen) Hyaline Casts (0-2) /LPF Urine Test (NEGATIVE) Urine Opiates Screen Not Detected (Not Detect) Urine Fentanyl Screen Not Detected (Not Detect) Ur Barbiturates Screen Not Detected (Not Detect) Ur Phencyclidine Scrn Not Detected (Not Detect) Ur Amphetamines Screen Not Detected (Not Detect) U Benzodiazepines Scrn Not Detected (Not Detect) Urine Cocaine Screen Not Detected (Not Detect) U Marijuana (THC) Screen Not Detected (Not Detect) COVID-19 (AJ) (Negative) COVID-19 Clin Com 03/13/22 Range/Units 20:49 WBC (4.8-10.8) X10*3/uL RBC (4.20-5.50) X10*6/uL Hgb (12.0-16.0) g/dl Hct (37.0-47.0) % MCV (80.0-98.0) fL MCH (27.0-33.0) pg MCHC (31.0-35.0) g/dl RDW (11.0-16.0) % Plt Count (160-400) X10*3/uL MPV (9.4-12.3) fL Immature Gran % (Auto) (0.0-0.4) % Neut % (Auto) (45-73) % Lymph % (Auto) (20-40) % [place] % (Auto) (2-11) % Eos % (Auto) (0-4) % Baso % (Auto) (0-2) % Lymph # (Auto) (1.2-4.9) X10*3/uL [place] # (Auto) (0.1-1.2) X10*3/uL Eos # (Auto) (0.0-0.4) X10*3/uL Baso # (Auto) (0.0-0.2) X10*3/uL Abs Immat Gran (auto) (0.00-0.03) X10*3/uL Absolute Neuts (auto) (2.0-8.3) x10*3/uL Absolute Nucleated RBC (0.0-0.012) X10*3/uL Nucleated RBC % (auto) (0.0-0.2) /100WBC Sodium (135-145) mmol/L Potassium (3.3-5.1) mmol/L Chloride (96-108) mmol/L Carbon Dioxide (22-29) mmol/L Anion Gap (12-20) BUN (9-16) mg/dL Creatinine (0.5-1.4) mg/dL Estim Creat Clear Calc Estimated GFR Random Glucose (60-115) mg/dL Calcium (8.4-10.2) mg/dL Total Bilirubin (0.0-1.0) mg/dL AST (5-31) U/L ALT (0-31) U/L Alkaline Phosphatase (39-117) U/L B-Natriuretic Peptide 43 (<100) pg/mL Total Protein (6.5-8.0) g/dL Albumin (3.5-5.0) g/dL Urine Color Urine Appearance Urine pH (5.0-9.0) Ur Specific [place] (1.005-1.025) Urine Protein (Neg-Trace) mg/dL Urine Glucose (UA) (Negative) mg/dL Urine Ketones (Negative) mg/dL Urine Blood (Negative) Urine Nitrite (Negative) Ur Leukocyte Esterase (Negative) Urine RBC (0-2) /HPF Urine WBC (0-5) /HPF Ur Squamous Epith Cells (0-2) /HPF Urine Bacteria (None Seen) Hyaline Casts (0-2) /LPF Urine Test (NEGATIVE) Urine Opiates Screen (Not Detect) Urine Fentanyl Screen (Not Detect) Ur Barbiturates Screen (Not Detect) Ur Phencyclidine Scrn (Not Detect) Ur Amphetamines Screen (Not Detect) U Benzodiazepines Scrn (Not Detect) Urine Cocaine Screen (Not Detect) U Marijuana (THC) Screen (Not Detect) COVID-19 (AJ) (Negative) COVID-19 Clin Com External Record Review External record reviewed: Inpatient record, Outpatient record and Prior outpatient labs Discharge Plan Discharge Clinical Impression: Bipolar 2 disorder, major depressive episode, MDD (major depressive disorder), recurrent episode, moderate, Suicidal ideation Patient Disposition: Still a Patient Prescriptions: No Action multivitamin Tablet 1 tab PO DAILY clonidine HCl 0.1 mg Tablet 0.2 mg PO TID PRN (Reason: Anxiety) atenolol 25 mg Tablet 25 mg PO DAILY omeprazole 20 mg Capsule,Delayed Release(Dr/Ec) 20 mg PO BID folic acid 1 mg Tablet 1 mg PO DAILY hydroxyzine HCl 25 mg Tablet 25 - 50 mg PO BID PRN (Reason: Anxiety) bupropion HCl 300 mg Tablet Extended Release 24 Hr 300 mg PO QAM bupropion HCl 150 mg Tablet Extended Release 24 Hr 150 mg PO QAM Vyvanse 70 mg Capsule 70 mg PO DAILY@1200 sertraline 50 mg Tablet 50 mg PO DAILY 30 Days Qty: 30 0RF clonidine HCl 0.2 mg Tablet 0.4 mg PO BEDTIME metformin 500 mg Tablet 500 mg PO BID fluticasone propionate 50 mcg/actuation [place],Suspension 1 spray INTRANASAL BID Rx Instructions: administer into each nostril nicotine (polacrilex) 2 mg Lozenge 2 mg BUCCAL Q2H PRN (Reason: Nicotine Cravings) hydrochlorothiazide 12.5 mg Tablet 12.5 mg PO DAILY pyridoxine (vitamin B6) 50 mg Tablet 50 mg PO DAILY methadone 10 mg/5 mL Solution 180 mg PO DAILY quetiapine 25 mg Tablet 75 mg PO BEDTIME Qty: 90 0RF gabapentin 600 mg Tablet 600 mg PO TID Qty: 90 0RF clonazepam 1 mg Tablet 1 mg PO BID PRN (Reason: Anxiety) Qty: 30 0RF Latuda 120 mg tablet 120 mg PO BEDTIME Qty: 30 0RF Interventions: [place]-Suicide Risk Severity Scale Last Done: 03/13/22 17:59
[2022-03-13 17:56] VITALS: BP 137/81; BP 139/88; PULSE 100; PULSE 118; RESP 16; TEMP 36.5; O2SAT 95; BMI 44.4
[2022-03-13 18:32] LABS: Appearance Urine Clear; Color Urine Yellow; Glucose Urine UA 100 mg/dL (Negative); Leukocyte Esterase Urine Negative (Negative); Nitrite Urine Negative (Negative); Specific Gravity - Urine 1.025 (1.005-1.025); UMIC TRIGGER UACC YES; Urine Blood Negative (Negative); Urine Ketones Trace mg/dL (Negative); Urine Protein 30 (1+) mg/dL (Neg-Trace)
[2022-03-13 18:37] LABS: Bacteria Urine 1+ (None Seen); Hyaline Casts Urine 0-2 /LPF (0-2); RBC Urine 0-2 /HPF (0-2); UPreg QC Valid YES; Urine Pregnancy NEGATIVE (NEGATIVE); WBC Urine 0-5 /HPF (0-5)
[2022-03-13 18:40] LABS: Amphetamine Screen Urine Not Detected (Not Detect); Barbiturates, Urine Not Detected (Not Detect); Benzodiazepines Screen Urine Not Detected (Not Detect); Cannabinoid Screen Urine Not Detected (Not Detect); Cocaine Screen Urine Not Detected (Not Detect); Fentanyl, urine Not Detected (Not Detect); Opiate Screen Urine Not Detected (Not Detect); Phencyclidine Screen Urine Not Detected (Not Detect)
[2022-03-13 18:49] LABS: COVID-19 Test Negative (Negative); IDNOW Serial# 55D5AD1C
--- NOTE | 2022-03-13 19:12 | MHC.EDTECH ---
patient is refusing blood draws. was asked 3 times.
[2022-03-13 20:56] LABS: MANUAL DIFF FLAG NO
[2022-03-13 21:00] LABS: Basophils Percent Auto 0.2 % (0-2); Eosinophils Percent Auto 0.2 % (0-4); Hematocrit 31.4 % (37.0-47.0); Hemoglobin 9.4 g/dl (12.0-16.0); Imm Gran Abs Auto 0.03 X10*3/uL (0.00-0.03); Imm Gran Pct Auto 0.5 % (0.0-0.4); Lymphocytes Absolute Auto 1.7 X10*3/uL (1.2-4.9); Lymphocytes Percent Auto 28.6 % (20-40); Mean Corpuscular HGB Conc 29.9 g/dl (31.0-35.0); Mean Corpuscular Hemoglobin 22.2 pg (27.0-33.0); Mean Corpuscular Volume 74.1 fL (80.0-98.0); Mean Platelet Volume 10.2 fL (9.4-12.3); Monocytes Absolute Auto 0.3 X10*3/uL (0.1-1.2); Monocytes Percent Auto 5.8 % (2-11); Neutrophils Absolute Auto 3.8 x10*3/uL (2.0-8.3); Neutrophils Percent Auto 64.7 % (45-73); Platelet Count 175 X10*3/uL (160-400); Red Blood Count 4.24 X10*6/uL (4.20-5.50); Red Cell Distribution Width 15.3 % (11.0-16.0); White Blood Count 5.9 X10*3/uL (4.8-10.8)
[2022-03-13 21:17] LABS: Alanine Aminotransferase 17 U/L (0-31); Albumin Level 3.5 g/dL (3.5-5.0); Alkaline Phosphatase 80 U/L (39-117); Anion Gap 13 (12-20); Aspartate Amino Transferase 20 U/L (5-31); Bilirubin Total 0.4 mg/dL (0.0-1.0); Blood Urea Nitrogen 11 mg/dL (9-16); Calcium 8.1 mg/dL (8.4-10.2); Carbon Dioxide 26 mmol/L (22-29); Chloride 100 mmol/L (96-108); Creatinine Clr Calc Pharmacy 135.7; Estimated Glomerular Filt Rate > 60; Glucose Random 222 mg/dL (60-115); Potassium 3.7 mmol/L (3.3-5.1); Sodium 135 mmol/L (135-145); Total Protein 6.5 g/dL (6.5-8.0)
[2022-03-13 21:21] LABS: B Type Natriuretic Peptide 43 pg/mL (<100)
[2022-03-13] MEDS: clonazePAM 1 MG TABLET PO (22:35)
[2022-03-13] MEDS: Gabapentin 600 MG TABLET PO (22:35)
[2022-03-13] MEDS: Lurasidone HCl 40 MG TABLET 120 MG PO (22:35)
[2022-03-13] MEDS: QUEtiapine Fumarate 25 MG TABLET 75 MG PO (22:35)
[2022-03-13] MEDS: Omeprazole 20 MG CAPSULE.DR PO (22:35)
[2022-03-13] MEDS: metFORMIN HCl 500 MG TABLET PO (22:35)
[2022-03-13] MEDS: cloNIDine HCL 0.2 MG TABLET 0.4 MG PO (22:42)
[2022-03-13 22:44] VITALS: BP 132/74; PULSE 106; RESP 20; TEMP 38.1; O2SAT 93
[2022-03-13] MEDS: Acetaminophen 325 MG TABLET 975 MG PO (22:46)
--- NOTE | 2022-03-14 05:57 | PC.NURSE ---
Patient slept through the night, no distress observed/reported, behavior non concerning, contracted for the safety, medication compliant, disposition acre team is section 12 inpatient bed search, VSS, will continue to monitor.
[2022-03-14] MEDS: Omeprazole 20 MG CAPSULE.DR PO ×2 (06:22→15:02)
[2022-03-14 06:26] VITALS: BP 140/81; PULSE 93; RESP 18; TEMP 36.9; O2SAT 95
--- NOTE | 2022-03-14 07:45 | HE.PHANOTE ---
RE METHADONE PT GETS METHADONE FROM [facility], LAST DOSE WAS 180MG GIVEN 03/12/22. SAE
[2022-03-14] MEDS: buPROPion HCl XL 150 MG TAB.ER.24H PO (08:12)
[2022-03-14] MEDS: buPROPion HCl XL 300 MG TAB.ER.24H PO (08:12)
[2022-03-14] MEDS: Folic Acid 1 MG TABLET PO (08:12)
[2022-03-14] MEDS: Multivitamin TABLET 1 TAB PO (08:12)
[2022-03-14] MEDS: Gabapentin 600 MG TABLET PO ×3 (08:12→20:41)
[2022-03-14] MEDS: atenoloL 25 MG TABLET PO (08:12)
[2022-03-14] MEDS: Sertraline HCL 50 MG TABLET PO (08:12)
[2022-03-14] MEDS: Pyridoxine HCl (Vitamin B6) 50 MG TABLET PO (08:12)
[2022-03-14] MEDS: hydroCHLOROthiazide 12.5 MG TABLET PO (08:13)
[2022-03-14 08:20] VITALS: BP 105/56; PULSE 93; RESP 16; TEMP 37.2; O2SAT 94
[2022-03-14] MEDS: metFORMIN HCl 500 MG TABLET PO ×2 (09:47→20:41)
[2022-03-14] MEDS: clonazePAM 1 MG TABLET PO ×2 (09:47→20:41)
[2022-03-14] MEDS: methADONE HCl 20 MG/2 ML ORAL.CONC 180 MG PO (09:47)
[2022-03-14] MEDS: Acetaminophen 325 MG TABLET 650 MG PO (10:00)
[2022-03-14] MEDS: cloNIDine HCL 0.2 MG TABLET PO (15:09)
[2022-03-14 15:13] VITALS: BP 142/85; PULSE 95; RESP 20; TEMP 36.4; O2SAT 97
[2022-03-14 20:00] VITALS: BP 117/70; PULSE 99; RESP 20; TEMP 37.1; O2SAT 95
[2022-03-14] MEDS: Lurasidone HCl 40 MG TABLET 120 MG PO (20:41)
[2022-03-14] MEDS: QUEtiapine Fumarate 25 MG TABLET 75 MG PO (20:41)
[2022-03-14] MEDS: Fluticasone Propionate Nasal 16 GM SPRAY 1 SPRAY NOSTRIL-B ×2 (20:41)
[2022-03-14] MEDS: cloNIDine HCL 0.2 MG TABLET 0.4 MG PO (20:42)
[2022-03-15 06:26] VITALS: BP 119/66; PULSE 91; RESP 17; O2SAT 95
[2022-03-15] MEDS: Omeprazole 20 MG CAPSULE.DR PO ×2 (06:47→20:52)
--- NOTE | 2022-03-15 07:03 | PC.NURSE ---
patient appears to remain at rest at present respirations are even and unlabored patient appears in no distress
[2022-03-15] MEDS: metFORMIN HCl 500 MG TABLET PO ×2 (10:52→20:53)
[2022-03-15] MEDS: buPROPion HCl XL 300 MG TAB.ER.24H PO (10:52)
[2022-03-15] MEDS: buPROPion HCl XL 150 MG TAB.ER.24H PO (10:52)
[2022-03-15] MEDS: Gabapentin 600 MG TABLET PO ×3 (10:53→20:53)
[2022-03-15] MEDS: clonazePAM 1 MG TABLET PO ×2 (10:53→16:49)
[2022-03-15] MEDS: Multivitamin TABLET 1 TAB PO (10:53)
[2022-03-15] MEDS: Folic Acid 1 MG TABLET PO (10:53)
[2022-03-15] MEDS: Sertraline HCL 50 MG TABLET PO (10:53)
[2022-03-15] MEDS: atenoloL 25 MG TABLET PO (10:53)
[2022-03-15] MEDS: methADONE HCl 20 MG/2 ML ORAL.CONC 180 MG PO (10:53)
[2022-03-15] MEDS: hydroCHLOROthiazide 12.5 MG TABLET PO (11:08)
[2022-03-15] MEDS: Pyridoxine HCl (Vitamin B6) 50 MG TABLET PO (11:16)
[2022-03-15] MEDS: cloNIDine HCL 0.2 MG TABLET PO ×2 (12:06→16:49)
[2022-03-15 12:31] VITALS: BP 110/60; PULSE 87; RESP 18; TEMP 36.8; O2SAT 97
[2022-03-15] MEDS: hydrOXYzine HCL 25 MG TABLET PO (14:22)
--- NOTE | 2022-03-15 15:05 | PC.NURSE ---
report received from EMILY Chadwick. Pt is resting on bed at this time in no apparent distress. Awaiting bed assignment and transport
--- NOTE | 2022-03-15 15:19 | PC.NURSE ---
pt requesting clonidine, pt is aware it is not due for another couple hours
[2022-03-15] MEDS: Acetaminophen 325 MG TABLET 650 MG PO (16:49)
[2022-03-15 18:00] VITALS: BP 124/69; PULSE 89; TEMP 35.9; O2SAT 96
[2022-03-15] MEDS: Lurasidone HCl 40 MG TABLET 120 MG PO (20:51)
[2022-03-15] MEDS: QUEtiapine Fumarate 25 MG TABLET 75 MG PO (20:52)
[2022-03-15] MEDS: cloNIDine HCL 0.2 MG TABLET 0.4 MG PO (20:53)
--- NOTE | 2022-03-15 22:54 | PC.ADMIT ---
pt is a 32 year old female who present to [facility] with SI with a plan. pt says she became depressed when she developed edema and couldn't participate in [facility] activites. pt PMH includes edema in legs and diabetes. during admission, pt answered all questions and complained about the edema. she is concerned about being homelessness. pt requested something else for her edema because she hydrochlorothiazide does not work for her edema. pt wanted some med time changes, but was told the provider would do it in the morning. start treatment plan and promote safety
--- NOTE | 2022-03-15 23:37 | PC.NURSE ---
pt asked for omeprazole at night.
[2022-03-16] MEDS: methADONE HCl 20 MG/2 ML ORAL.CONC 180 MG PO (08:41)
[2022-03-16] MEDS: Omeprazole 20 MG CAPSULE.DR PO ×2 (08:42→16:26)
[2022-03-16] MEDS: Sertraline HCL 50 MG TABLET PO (08:42)
[2022-03-16] MEDS: Gabapentin 600 MG TABLET PO ×3 (08:42→19:38)
[2022-03-16] MEDS: hydroCHLOROthiazide 12.5 MG TABLET PO (08:42)
[2022-03-16] MEDS: buPROPion HCl XL 150 MG TAB.ER.24H PO (08:42)
[2022-03-16] MEDS: Pyridoxine HCl (Vitamin B6) 50 MG TABLET PO (08:42)
[2022-03-16] MEDS: metFORMIN HCl 500 MG TABLET PO ×2 (08:42→19:37)
[2022-03-16] MEDS: Folic Acid 1 MG TABLET PO (08:42)
[2022-03-16] MEDS: clonazePAM 1 MG TABLET PO ×2 (08:45→15:17)
[2022-03-16 08:52] VITALS: BP 140/83; PULSE 93; RESP 18; TEMP 36.2; O2SAT 98
[2022-03-16 09:00] LABS: Estimated Average Glucose 180 mg/dL; Hemoglobin A1C 149.6348 umol/L; Hemoglobin A1c % 7.9 %
[2022-03-16 09:10] LABS: Alanine Aminotransferase 34 U/L (0-31); Albumin Level 3.3 g/dL (3.5-5.0); Alkaline Phosphatase 91 U/L (39-117); Anion Gap 9 (12-20); Aspartate Amino Transferase 39 U/L (5-31); Bilirubin Total 0.2 mg/dL (0.0-1.0); Blood Urea Nitrogen 7 mg/dL (9-16); Calcium 8.2 mg/dL (8.4-10.2); Carbon Dioxide 30 mmol/L (22-29); Chloride 99 mmol/L (96-108); Cholesterol 142 mg/dL; Estimated Glomerular Filt Rate > 60; Glucose Fasting 169 mg/dL (60-99); HDL Cholesterol 26 mg/dL; LDL Cholesterol Calculated 60 mg/dl; Sodium 135 mmol/L (135-145); Total Protein 6.2 g/dL (6.5-8.0); Triglycerides 282 mg/dL
[2022-03-16 09:25] LABS: Thyroid Stimulating Hormone 1.65 uIU/mL (0.32-4.0)
[2022-03-16 09:37] LABS: Vitamin B12 406 pg/mL (200-900)
[2022-03-16] MEDS: Fluticasone Propionate Nasal 16 GM SPRAY 1 SPRAY NOSTRIL-B (10:34)
[2022-03-16] MEDS: buPROPion HCl XL 300 MG TAB.ER.24H PO (10:35)
[2022-03-16] MEDS: Multivitamin TABLET 1 TAB PO (10:35)
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
[2022-03-16] MEDS: cloNIDine HCL 0.2 MG TABLET PO ×2 (12:40→15:18)
[2022-03-16] MEDS: Acetaminophen 325 MG TABLET 650 MG PO (12:40)
[2022-03-16] MEDS: hydrOXYzine HCL 25 MG TABLET PO (12:40)
[2022-03-16 12:41] VITALS: BP 134/60; PULSE 91
[2022-03-16 15:21] VITALS: BP 118/59; PULSE 89
[2022-03-16 18:00] VITALS: BP 118/68; PULSE 78; RESP 16; TEMP 36.2; O2SAT 98
[2022-03-16] MEDS: Lurasidone HCl 40 MG TABLET 120 MG PO (19:37)
[2022-03-16] MEDS: cloNIDine HCL 0.2 MG TABLET 0.4 MG PO (19:38)
[2022-03-16] MEDS: QUEtiapine Fumarate 25 MG TABLET PO (19:39)
[2022-03-16 20:04] LABS: Appearance Urine Clear; Color Urine Yellow; Glucose Urine UA Negative (Negative); Leukocyte Esterase Urine Negative (Negative); Nitrite Urine Negative (Negative); Urine Blood Negative (Negative); Urine Ketones Negative (Negative); Urine Protein Negative (Neg-Trace)
[2022-03-17] MEDS: Omeprazole 20 MG CAPSULE.DR PO ×2 (06:22→16:41)
[2022-03-17] MEDS: clonazePAM 1 MG TABLET PO ×2 (08:29→15:34)
[2022-03-17] MEDS: Gabapentin 600 MG TABLET PO ×3 (08:29→19:26)
[2022-03-17] MEDS: Folic Acid 1 MG TABLET PO (08:30)
[2022-03-17] MEDS: hydroCHLOROthiazide 25 MG TABLET PO (08:30)
[2022-03-17] MEDS: cloNIDine HCL 0.2 MG TABLET PO ×2 (08:30→15:34)
[2022-03-17] MEDS: metFORMIN HCl 500 MG TABLET PO ×2 (08:30→19:26)
[2022-03-17] MEDS: buPROPion HCl XL 150 MG TAB.ER.24H PO (08:30)
[2022-03-17] MEDS: Acetaminophen 325 MG TABLET 650 MG PO ×2 (08:31→15:34)
[2022-03-17] MEDS: methADONE HCl 20 MG/2 ML ORAL.CONC 180 MG PO (08:31)
[2022-03-17] MEDS: buPROPion HCl XL 300 MG TAB.ER.24H PO (08:31)
[2022-03-17] MEDS: Pyridoxine HCl (Vitamin B6) 50 MG TABLET PO (08:31)
[2022-03-17] MEDS: Multivitamin TABLET 1 TAB PO (08:31)
[2022-03-17] MEDS: Sertraline HCL 50 MG TABLET PO (08:31)
[2022-03-17 08:37] VITALS: BP 118/72; PULSE 90; RESP 20; TEMP 36.4; O2SAT 94
--- NOTE | 2022-03-17 09:18 | P.PNPSI_ITS ---
Subjective Subjective Date of Service: 03/17/22 Reason For Visit: SI Subjective Notes: Conditional Voluntary Interim History: Pt reports very poor sleep last night with decreased dose of seroquel. Pt working on decreasing medication that can cause weight gain in light of new DM 2 dx. Pt continues to endorse depressed mood. She reports passive Si but no plan or intent. We discussed increasing sertraline to 75mg po daily, continuing wellbutrin. Will increase seroquel to 50mg po qhs. Monitor for excessive sedation during the day, although at the moment has not been a concern. Pt encouraged to be more visible on the unit and attend some groups to avoid staying in her room for too long. Medication Compliance: Yes Side effects from medications: Yes Attending Groups: Intermittent Review of Systems Review of Systems Constitutional: No Fever, No Chills Cardiovascular: No Chest Pain, No SOB Respiratory: No Cough, No Sputum, No Dyspnea Gastrointestinal: No Nausea, No Vomiting, No Diarrhea Genitourinary: No Dysuria, No Urinary Frequency, No Hematuria Musculoskeletal: No Myalgias Skin: No Skin Lesions, No rash Neuro: No Weakness, No Numbness, No Paresthesias, No Dizziness, No Headache Psych: positive Anxiety, positive Depression, positive SI Yes all other systems are reviewed and are negative Constitutional: Reports no additional constitutional complaints, Reports fatigue and Reports lethargy Eyes: Reports no additional eye complaints Cardiovascular: Reports no additional cardiovascular complaints, Denies chest p ain, Denies chest pain with activity and Denies epigastric discomfort Respiratory: Denies no additional respiratory complaints, Denies chest congestion and Denies cough Gastrointestinal: Denies no additional gastrointestinal complaints Musculoskeletal: Denies no additional musculoskeletal complaints Endocrine: Reports fatigue Mental Status Exam Mental Status Exam Narrative: Appearance: casually groomed, good hygiene, in NAD Behavior: cooperative Psychomotor: no agitation or retardation noted Speech: clear, normal rate/rhythm/volume, spontaneous TP: linear TC: no s/s of psychosis, feeling depressed wanting to go back to program Mood: depressed Affect: brightens up at times SI: passive, no plan HI: none VH/AH: none Delusions: none Insight/judgment: fair x 2. Memory/cog: alert, oriented x 3. grossly intact to conversational testing. Diagnostics Vital Signs (24Hr): Vital Signs - 24 hr 03/16/22 12:41 03/16/22 15:21 03/16/22 18:00 Temperature 97.2 F Pulse Rate 91 89 78 Respiratory Rate 16 Blood Pressure 134/60 118/59 L 118/68 Pulse Oximetry 98 Oxygen Delivery Method Room Air 03/17/22 08:37 Temperature 97.6 F Pulse Rate 90 Respiratory Rate 20 Blood Pressure 118/72 Pulse Oximetry 94 Oxygen Delivery Method Room Air BMI result Body Mass Index 44.4 Labs 03/13/22 20:49 03/16/22 08:18 Labs: Laboratory Results - last 48 hr 03/16/22 03/16/22 03/16/22 08:18 08:18 08:18 Sodium 135 Potassium 3.0 L Chloride 99 Carbon Dioxide 30 H Anion Gap 9 L BUN 7 L Creatinine 0.71 Estim Creat Clear Calc 128.0 Estimated GFR > 60 Fasting Glucose 169 H Estimat Average Glucose 180 Hemoglobin A1c % 7.9 Calcium 8.2 L Total Bilirubin 0.2 AST 39 H ALT 34 H Alkaline Phosphatase 91 Total Protein 6.2 L Albumin 3.3 L Triglycerides 282 Cholesterol 142 LDL Cholesterol, Calc 60 HDL Cholesterol 26 Vitamin B12 406 TSH 1.65 Urine Color Urine Appearance Urine pH Ur Specific [place] Urine Protein Urine Glucose (UA) Urine Ketones Urine Blood Urine Nitrite Ur Leukocyte Esterase 03/16/22 19:00 Sodium Potassium Chloride Carbon Dioxide Anion Gap BUN Creatinine Estim Creat Clear Calc Estimated GFR Fasting Glucose Estimat Average Glucose Hemoglobin A1c % Calcium Total Bilirubin AST ALT Alkaline Phosphatase Total Protein Albumin Triglycerides Cholesterol LDL Cholesterol, Calc HDL Cholesterol Vitamin B12 TSH Urine Color Yellow Urine Appearance Clear Urine pH 7.0 Ur Specific [place] 1.010 Urine Protein Negative Urine Glucose (UA) Negative Urine Ketones Negative Urine Blood Negative Urine Nitrite Negative Ur Leukocyte Esterase Negative Medications Medications Current Medications Acetaminophen (Acetaminophen 325 Mg Tablet) 650 mg PO Q6H PRN PRN Reason: Headache/Pain Mild Scale (1-3) Last Admin: 03/17/22 08:31 Dose: 650 mg Al Hydroxide/Mg Hydroxide (Magnesium Hydrox/Alum Hydrox 30 Ml Oral.Susp) 30 ml PO Q6H PRN PRN Reason: Heartburn/Nausea Bupropion HCl (Bupropion Hcl Xl 150 Mg Tab.Er.24h) 150 mg PO DAILY [facility] Last Admin: 03/17/22 08:30 Dose: 150 mg Bupropion HCl (Bupropion Hcl Xl 300 Mg Tab.Er.24h) 300 mg PO DAILY [facility] Last Admin: 03/17/22 08:31 Dose: 300 mg Clonazepam (Clonazepam 1 Mg Tablet) 1 mg PO BID PRN PRN Reason: Anxiety Last Admin: 03/17/22 08:29 Dose: 1 mg Clonidine HCl (Clonidine Hcl 0.2 Mg Tablet) 0.2 mg PO TID PRN; Protocol PRN Reason: Anxiety Last Admin: 03/17/22 08:30 Dose: 0.2 mg Clonidine HCl (Clonidine Hcl 0.2 Mg Tablet) 0.4 mg PO BEDTIME [facility]; Protocol Last Admin: 03/16/22 19:38 Dose: 0.4 mg Fluticasone Propionate (Fluticasone Propionate Nasal 16 Gm [place]) 1 spray NOSTRIL-B BID [facility] Last Admin: 03/17/22 08:37 Dose: Not Given Folic Acid (Folic Acid 1 Mg Tablet) 1 mg PO DAILY [facility] Last Admin: 03/17/22 08:30 Dose: 1 mg Gabapentin (Gabapentin 600 Mg Tablet) 600 mg PO TID [facility] Last Admin: 03/17/22 08:29 Dose: 600 mg Hydrochlorothiazide (Hydrochlorothiazide 25 Mg Tablet) 25 mg PO DAILY [facility]; Protocol Last Admin: 03/17/22 08:30 Dose: 25 mg Lurasidone HCl (Lurasidone Hcl 40 Mg Tablet) 120 mg PO DAILY@1700 [facility] Magnesium Hydroxide (Milk Of Magnesia 30 Ml Oral.Susp) 30 ml PO DAILY PRN PRN Reason: Constipation Metformin HCl (Metformin Hcl 500 Mg Tablet) 500 mg PO BID [facility] Last Admin: 03/17/22 08:30 Dose: 500 mg Methadone HCl (Methadone Hcl 20 Mg/2 Ml Oral.Conc) 180 mg PO DAILY [facility] Last Admin: 03/17/22 08:31 Dose: 180 mg Multivitamins/Vitamin C (Multivitamin Tablet) 1 tab PO DAILY [facility] Last Admin: 03/17/22 08:31 Dose: 1 tab Nicotine Polacrilex (Nicotine Polacrilex Lozenge 2 Mg Lozenge) 2 mg BUCCAL Q2H PRN PRN Reason: Nicotine Cravings Non-Formulary Medication (Lisdexamfetamine [Vyvanse]) 70 mg PO DAILY@1200 [facility]ELIE Omeprazole (Omeprazole 20 Mg Capsule.Dr) 20 mg PO BID@0630,1630 [facility] Last Admin: 03/17/22 06:22 Dose: 20 mg Pyridoxine HCl (Pyridoxine Hcl (Vitamin B6) 50 Mg Tablet) 50 mg PO DAILY [facility] Last Admin: 03/17/22 08:31 Dose: 50 mg Quetiapine Fumarate (Quetiapine Fumarate 50 Mg Tablet) 50 mg PO BEDTIME [facility] Sertraline HCl (Sertraline Hcl 25 Mg Tablet) 75 mg PO DAILY [facility] Trazodone HCl (Trazodone Hcl 50 Mg Tablet) 50 mg PO BEDTIME PRN PRN Reason: Insomnia Allergies Allergies Allergy/AdvReac Type Severity Reaction Status Date / Time meperidine [From Demerol] Allergy Mild UNKNOWN Verified 08/31/21 06:57 Penicillins Allergy Mild UNKNOWN Verified 08/31/21 06:57 propoxyphene Allergy Mild UNKNOWN Verified 08/31/21 06:57 [From Darvocet-N 50] Sulfa (Sulfonamide Allergy Mild UNKNOWN, Verified 08/31/21 06:57 Antibiotics) HIVES penicillin V Allergy Unknown SWELLING Verified 08/31/21 06:57 Assessment & Plan Assessment & Plan (1) Bipolar 2 disorder, major depressive episode: Status: Acute Code(s): F31.81 - Bipolar II disorder (2) PTSD (post-traumatic stress disorder): Status: Acute Code(s): F43.10 - Post-traumatic stress disorder, unspecified (3) Opioid use disorder, moderate, in early remission: Status: Acute Code(s): F11.21 - Opioid dependence, in remission Plan Ms. Das is a 32 year-old woman with hx of Bipolar Disorder, PTSD, opioid use disorder in remission. Pt self presented to [facility] ED reporting increase depression, passive SI. Utox negative. It appears pt has not been able to participate in daily acitivites expected to complete while in residential dual dx treatment program due to depression. Pt recently dx with DM type 2 coping fairly well. In agreement to meet with accounts receivable manager for further education. She started metformin one keep ago and is tolerating it well. Although pt denies sedation with current medications, in the past this has been of concern given combination of prescribed meds including methadone 180mg po daily, gabapentin 600mg po TID, clonazepam 1mg po BID- will closely monitor over sedation. Pt has worked very hard On her recovery and has been in residential programs for over a year with one relapsed last year in 08/2021. We discussed risks, benefits and alternative treatment options, pt agrees to lower seroquel, also with concern of weight gain and new dx of DM. PLAN 03/17- increase sertraline to 75mg po daily. Increase seroquel to 50mg po qhs as pt did not sleep well. monitor excessive sedation- not a concern at the moment. We also discussed considering TMS on discharge as pt has had multiple medication trials with partial effect. Pt seems interested. For now will continue titrate sertraline and continue wellbutrin 450mg po daily. Patient educated on: diagnosis Informed Consent: understands Reason for contiued inpatient stay Substantial Risk for: harm to self Time Spent With Patient Time: Total time managing care of this patient today _25___ minutes.
--- NOTE | 2022-03-17 15:24 | MHC.CLN ---
NUTRITION CONSULT FOR NEW DIABETES. PATIENT LEARNED ABOUT 2 WEEKS AGO THAT HAS DIABETES AND STARTED [facility]. PROVIDED HANDOUT AND DISCUSSION ABOUT HEALTHFUL MEAL PLANNING. STATED THAT HAS HAD NO PRIOR DIABETIC EDUCATION. DISCUSSED AND CHANGED DIET TO DIABETIC 1800 KCALS. KITCHEN AWARE. PATIENT COULD BENEFIT FROM OUTPATIENT DIABETES EDUCATION.
[2022-03-17 15:35] VITALS: BP 123/75; PULSE 107
[2022-03-17] MEDS: Lurasidone HCl 40 MG TABLET 120 MG PO (16:41)
[2022-03-17] MEDS: QUEtiapine Fumarate 50 MG TABLET PO (19:26)
[2022-03-17] MEDS: cloNIDine HCL 0.2 MG TABLET 0.4 MG PO (19:27)
[2022-03-17] MEDS: Fluticasone Propionate Nasal 16 GM SPRAY 1 SPRAY NOSTRIL-B (20:01)
[2022-03-17 21:39] VITALS: BP 120/75; PULSE 78; RESP 16; TEMP 36.2; O2SAT 98
[2022-03-18] MEDS: methADONE HCl 20 MG/2 ML ORAL.CONC 180 MG PO (08:05)
[2022-03-18] MEDS: Omeprazole 20 MG CAPSULE.DR PO ×2 (08:06→15:45)
[2022-03-18] MEDS: hydroCHLOROthiazide 25 MG TABLET PO (08:06)
[2022-03-18] MEDS: buPROPion HCl XL 150 MG TAB.ER.24H PO (08:06)
[2022-03-18] MEDS: Gabapentin 600 MG TABLET PO ×3 (08:06→19:03)
[2022-03-18] MEDS: Sertraline HCL 25 MG TABLET 75 MG PO (08:06)
[2022-03-18] MEDS: Fluticasone Propionate Nasal 16 GM SPRAY 1 SPRAY NOSTRIL-B (08:07)
[2022-03-18] MEDS: Multivitamin TABLET 1 TAB PO (08:07)
[2022-03-18] MEDS: Pyridoxine HCl (Vitamin B6) 50 MG TABLET PO (08:07)
[2022-03-18] MEDS: Folic Acid 1 MG TABLET PO (08:07)
[2022-03-18] MEDS: buPROPion HCl XL 300 MG TAB.ER.24H PO (08:07)
[2022-03-18] MEDS: metFORMIN HCl 500 MG TABLET PO ×2 (08:07→19:03)
[2022-03-18 08:12] VITALS: BP 119/72; PULSE 91; RESP 18; TEMP 36.4; O2SAT 95
--- NOTE | 2022-03-18 10:37 | P.PNPSI_ITS ---
Subjective Subjective Date of Service: 03/18/22 Reason For Visit: SI Interim History: patient reports continued depression with SI; says if she was not here she'd make a plan since she feels her life is an unsolvable mess. She reports trouble sleeping w/ lowered Seroquel; since she feels it caused wt gain, she would like to switch meds. Discussed options, trazodone minimally effective. She agrees to Thorazine (screenplay writer reviewed risks/side-effects); will also move latuda to bedtime (says will take a snack). Added back hydroxyzine prn. Patient concerned about hep C and asked for testing due to history of needle sharing; reviewed labs and see that patient was mildly hypokalemic so will repeat labs Patient also asked about UTI medication for UTI diagnosed an emergency room; labs reviewed and it appears that repeat UA was unremarkable for UTI which is perhaps why antibiotic not continued; will touch base with hospitalist Mental Status Exam Mental Status Exam Narrative: Pt is alert and oriented; behavior is cooperative; anxious; obese; dressed in casual attire with adequate hygiene; mood is described as depressed and affect congruent, anxious; eye contact appropriate; Speech is normal rate, volume and prosody and not pressured; no psychomotor agitation/retardation present; thought process is organized and goal directed; Thought content is on hopelessness about turning her life around; treatment; otherwise pertinent to relevant topics and without any delusional content, paranoid ideations or grandiosity; positive for SI; no HI. There is no evidence of perceptual disturbance denies [facility] Patients insight and judgment are impaired Diagnostics Vital Signs (24Hr): Vital Signs - 24 hr 03/17/22 15:35 03/17/22 21:39 03/18/22 08:12 Temperature 97.2 F 97.6 F Pulse Rate 107 H 78 91 Respiratory Rate 16 18 Blood Pressure 123/75 120/75 119/72 Pulse Oximetry 98 95 Oxygen Delivery Method Room Air Room Air BMI result Body Mass Index 44.4 Labs 03/13/22 20:49 03/16/22 08:18 Labs: Laboratory Results - last 48 hr 03/16/22 19:00 Urine Color Yellow Urine Appearance Clear Urine pH 7.0 Ur Specific [place] 1.010 Urine Protein Negative Urine Glucose (UA) Negative Urine Ketones Negative Urine Blood Negative Urine Nitrite Negative Ur Leukocyte Esterase Negative Medications Medications Current Medications Acetaminophen (Acetaminophen 325 Mg Tablet) 650 mg PO Q6H PRN PRN Reason: Headache/Pain Mild Scale (1-3) Last Admin: 03/17/22 15:34 Dose: 650 mg Al Hydroxide/Mg Hydroxide (Magnesium Hydrox/Alum Hydrox 30 Ml Oral.Susp) 30 ml PO Q6H PRN PRN Reason: Heartburn/Nausea Bupropion HCl (Bupropion Hcl Xl 150 Mg Tab.Er.24h) 150 mg PO DAILY [facility] Last Admin: 03/18/22 08:06 Dose: 150 mg Bupropion HCl (Bupropion Hcl Xl 300 Mg Tab.Er.24h) 300 mg PO DAILY [facility] Last Admin: 03/18/22 08:07 Dose: 300 mg Clonazepam (Clonazepam 1 Mg Tablet) 1 mg PO BID PRN PRN Reason: Anxiety Last Admin: 03/17/22 15:34 Dose: 1 mg Clonidine HCl (Clonidine Hcl 0.2 Mg Tablet) 0.2 mg PO TID PRN; Protocol PRN Reason: Anxiety Last Admin: 03/17/22 15:34 Dose: 0.2 mg Clonidine HCl (Clonidine Hcl 0.2 Mg Tablet) 0.4 mg PO BEDTIME [facility]; Protocol Last Admin: 03/17/22 19:27 Dose: 0.4 mg Fluticasone Propionate (Fluticasone Propionate Nasal 16 Gm [place]) 1 spray NOSTRIL-B BID [facility] Last Admin: 03/18/22 08:07 Dose: 1 spray Folic Acid (Folic Acid 1 Mg Tablet) 1 mg PO DAILY [facility] Last Admin: 03/18/22 08:07 Dose: 1 mg Gabapentin (Gabapentin 600 Mg Tablet) 600 mg PO TID [facility] Last Admin: 03/18/22 08:06 Dose: 600 mg Hydrochlorothiazide (Hydrochlorothiazide 25 Mg Tablet) 25 mg PO DAILY [facility]; Protocol Last Admin: 03/18/22 08:06 Dose: 25 mg Lurasidone HCl (Lurasidone Hcl 40 Mg Tablet) 120 mg PO DAILY@1700 [facility] Last Admin: 03/17/22 16:41 Dose: 120 mg Magnesium Hydroxide (Milk Of Magnesia 30 Ml Oral.Susp) 30 ml PO DAILY PRN PRN Reason: Constipation Metformin HCl (Metformin Hcl 500 Mg Tablet) 500 mg PO BID [facility] Last Admin: 03/18/22 08:07 Dose: 500 mg Methadone HCl (Methadone Hcl 20 Mg/2 Ml Oral.Conc) 180 mg PO DAILY [facility] Last Admin: 03/18/22 08:05 Dose: 180 mg Multivitamins/Vitamin C (Multivitamin Tablet) 1 tab PO DAILY [facility] Last Admin: 03/18/22 08:07 Dose: 1 tab Nicotine Polacrilex (Nicotine Polacrilex Lozenge 2 Mg Lozenge) 2 mg BUCCAL Q2H PRN PRN Reason: Nicotine Cravings Non-Formulary Medication (Lisdexamfetamine [Vyvanse]) 70 mg PO DAILY@1200 [facility] Omeprazole (Omeprazole 20 Mg Capsule.Dr) 20 mg PO BID@0630,1630 [facility] Last Admin: 03/18/22 08:06 Dose: 20 mg Pyridoxine HCl (Pyridoxine Hcl (Vitamin B6) 50 Mg Tablet) 50 mg PO DAILY [facility] Last Admin: 03/18/22 08:07 Dose: 50 mg Quetiapine Fumarate (Quetiapine Fumarate 50 Mg Tablet) 50 mg PO BEDTIME [facility] Last Admin: 03/17/22 19:26 Dose: 50 mg Sertraline HCl (Sertraline Hcl 25 Mg Tablet) 75 mg PO DAILY [facility] Last Admin: 03/18/22 08:06 Dose: 75 mg Trazodone HCl (Trazodone Hcl 50 Mg Tablet) 50 mg PO BEDTIME PRN PRN Reason: Insomnia Allergies Allergies Allergy/AdvReac Type Severity Reaction Status Date / Time meperidine [From Demerol] Allergy Mild UNKNOWN Verified 08/31/21 06:57 Penicillins Allergy Mild UNKNOWN Verified 08/31/21 06:57 propoxyphene Allergy Mild UNKNOWN Verified 08/31/21 06:57 [From Darvocet-N 50] Sulfa (Sulfonamide Allergy Mild UNKNOWN, Verified 08/31/21 06:57 Antibiotics) HIVES penicillin V Allergy Unknown SWELLING Verified 08/31/21 06:57 Assessment & Plan Assessment & Plan (1) Bipolar 2 disorder, major depressive episode: Status: Acute Code(s): F31.81 - Bipolar II disorder (2) PTSD (post-traumatic stress disorder): Status: Acute Code(s): F43.10 - Post-traumatic stress disorder, unspecified (3) Opioid use disorder, moderate, in early remission: Status: Acute Code(s): F11.21 - Opioid dependence, in remission Plan Ms. Das is a 32 year-old woman with hx of Bipolar Disorder, PTSD, opioid use disorder in remission. Pt self presented to [facility] ED reporting increase depression, passive SI. Utox negative. It appears pt has not been able to participate in daily acitivites expected to complete while in residential dual dx treatment program due to depression. Pt recently dx with DM type 2 coping fairly well. In agreement to meet with appraiser land for further education. She started metformin one keep ago and is tolerating it well. Although pt denies sedation with current medications, in the past this has been of concern given combination of prescribed meds including methadone 180mg po m[place]enzie ly, gabapentin 600mg po TID, clonazepam 1mg po BID- will closely monitor over sedation. Pt has worked very hard On her recovery and has been in residential programs for over a year with one relapsed last year in 08/2021. We discussed risks, benefits and alternative treatment options, pt agrees to lower seroquel, also with concern of weight gain and new dx of DM. PLAN 03/17- increase sertraline to 75mg po daily. Increase seroquel to 50mg po qhs as pt did not sleep well. monitor excessive sedation- not a concern at the moment. We also discussed considering TMS on discharge as pt has had multiple medication trials with partial effect. Pt seems interested. For now will continue titrate sertraline and continue wellbutrin 450mg po daily. 03/18 remains depressed with SI -Discontinued Seroquel; lower dose not helping with sleep and patient trying to get off -Started low-dose Thorazine 50 mg q.h.s. p.r.n. for insomnia since this med has a little less risk for weight gain; screenplay writer reviewed risks/side effects and patient agrees (says trazodone not that helpful) -reported hep B/C profile; patient concerned given history of needle sharing -ordered CMP as Labs reviewed and revealed patient was mildly hypokalemic and with very mildly elevated LFTs -Patient also asked about UTI medication for UTI diagnosed an emergency room; labs reviewed and it appears that repeat UA was unremarkable for UTI which is perhaps why antibiotic not continued; will touch base with hospitalist -Discussed case with nursing; met with patient; reviewed vitals and WNL; reviewed labs (see above); reviewed primary team providers' progress notes Patient educated on: diagnosis, medication risk/benefits, substance abuse and medical condition Informed Consent: understands Reason for contiued inpatient stay Substantial Risk for: harm to self and rapid decompensation Time Spent With Patient Time: Total time managing care of this patient today ____ minutes.
[2022-03-18] MEDS: cloNIDine HCL 0.2 MG TABLET PO ×2 (12:11→16:09)
[2022-03-18] MEDS: Acetaminophen 325 MG TABLET 650 MG PO ×2 (12:11→19:12)
[2022-03-18] MEDS: clonazePAM 1 MG TABLET PO ×2 (12:11→16:09)
[2022-03-18] MEDS: hydrOXYzine HCL 50 MG TABLET PO ×2 (12:11→19:03)
[2022-03-18] MEDS: chlorproMAZINE HCl 25 MG TABLET PO (16:17)
[2022-03-18 16:19] VITALS: BP 126/67; PULSE 92; TEMP 35.9; O2SAT 97
[2022-03-18 18:16] VITALS: BP 117/64; PULSE 80; RESP 18; TEMP 36.6; O2SAT 94
[2022-03-18] MEDS: Lurasidone HCl 40 MG TABLET 120 MG PO (19:02)
[2022-03-18] MEDS: cloNIDine HCL 0.2 MG TABLET 0.4 MG PO (19:02)
[2022-03-18] MEDS: chlorproMAZINE HCl 25 MG TABLET 50 MG PO (19:03)
[2022-03-18] MEDS: traZODone HCL 50 MG TABLET PO (19:12)
[2022-03-19 07:45] VITALS: BP 125/63; PULSE 92; RESP 16; TEMP 36.4; O2SAT 93
[2022-03-19 08:29] LABS: Alanine Aminotransferase 36 U/L (0-31); Albumin Level 3.6 g/dL (3.5-5.0); Alkaline Phosphatase 87 U/L (39-117); Anion Gap 15 (12-20); Aspartate Amino Transferase 33 U/L (5-31); Bilirubin Total 0.2 mg/dL (0.0-1.0); Blood Urea Nitrogen 7 mg/dL (9-16); Carbon Dioxide 27 mmol/L (22-29); Chloride 98 mmol/L (96-108); Creatinine Clr Calc Pharmacy 121.2; Estimated Glomerular Filt Rate > 60; Glucose Random 199 mg/dL (60-115); Potassium 3.8 mmol/L (3.3-5.1); Sodium 136 mmol/L (135-145); Total Protein 6.6 g/dL (6.5-8.0)
[2022-03-19] MEDS: methADONE HCl 20 MG/2 ML ORAL.CONC 180 MG PO (08:59)
[2022-03-19] MEDS: buPROPion HCl XL 300 MG TAB.ER.24H PO (09:02)
[2022-03-19] MEDS: Sertraline HCL 25 MG TABLET 75 MG PO (09:02)
[2022-03-19] MEDS: metFORMIN HCl 500 MG TABLET PO ×2 (09:03→21:44)
[2022-03-19] MEDS: Pyridoxine HCl (Vitamin B6) 50 MG TABLET PO (09:03)
[2022-03-19] MEDS: buPROPion HCl XL 150 MG TAB.ER.24H PO (09:03)
[2022-03-19] MEDS: Folic Acid 1 MG TABLET PO (09:03)
[2022-03-19] MEDS: hydroCHLOROthiazide 25 MG TABLET PO (09:03)
[2022-03-19] MEDS: Multivitamin TABLET 1 TAB PO (09:03)
[2022-03-19] MEDS: Gabapentin 600 MG TABLET PO ×3 (09:03→21:44)
[2022-03-19] MEDS: Omeprazole 20 MG CAPSULE.DR PO ×2 (09:03→16:20)
[2022-03-19] MEDS: Fluticasone Propionate Nasal 16 GM SPRAY 1 SPRAY NOSTRIL-B (09:33)
--- NOTE | 2022-03-19 09:38 | P.PNPSI_ITS ---
Subjective Subjective Date of Service: 03/19/22 Reason For Visit: SI Interim History: Patient said she slept much better last night and appreciates the medication change. She still remains depressed and says she has suicidal ideation and wishes she were . Safe on the unit. Would like meds to remain the same for now Mental Status Exam Mental Status Exam Narrative: Pt is alert and oriented; behavior is cooperative; anxious; obese; dressed in casual attire with adequate hygiene; mood is described as depressed and affect congruent, anxious; eye contact appropriate; Speech is normal rate, volume and prosody and not pressured; no psychomotor agitation/retardation present; thought process is organized and goal directed; Thought content is on hopelessness about turning her life around; treatment; otherwise pertinent to relevant topics and without any delusional content, paranoid ideations or grandiosity; positive for SI; no HI. There is no evidence of perceptual disturbance denies [facility] Patients insight and judgment are impaired Diagnostics Vital Signs (24Hr): Vital Signs - 24 hr 03/18/22 16:19 03/18/22 18:16 Temperature 96.6 F L 97.9 F Pulse Rate 92 80 Respiratory Rate 18 Blood Pressure 126/67 117/64 Pulse Oximetry 97 94 Oxygen Delivery Method Room Air Room Air BMI result Body Mass Index 44.4 Labs 03/13/22 20:49 03/19/22 07:58 Labs: Laboratory Results - last 48 hr 03/19/22 07:58 Sodium 136 Potassium 3.8 D Chloride 98 Carbon Dioxide 27 Anion Gap 15 BUN 7 L Creatinine 0.75 Estim Creat Clear Calc 121.2 Estimated GFR > 60 Random Glucose 199 H Calcium 9.0 D Total Bilirubin 0.2 AST 33 H ALT 36 H Alkaline Phosphatase 87 Total Protein 6.6 Albumin 3.6 Medications Medications Current Medications Acetaminophen (Acetaminophen 325 Mg Tablet) 650 mg PO Q6H PRN PRN Reason: Headache/Pain Mild Scale (1-3) Last Admin: 03/18/22 19:12 Dose: 650 mg Al Hydroxide/Mg Hydroxide (Magnesium Hydrox/Alum Hydrox 30 Ml Oral.Susp) 30 ml PO Q6H PRN PRN Reason: Heartburn/Nausea Bupropion HCl (Bupropion Hcl Xl 150 Mg Tab.Er.24h) 150 mg PO DAILY [facility] Last Admin: 03/19/22 09:03 Dose: 150 mg Bupropion HCl (Bupropion Hcl Xl 300 Mg Tab.Er.24h) 300 mg PO DAILY [facility] Last Admin: 03/19/22 09:02 Dose: 300 mg Chlorpromazine HCl (Chlorpromazine Hcl 25 Mg Tablet) 50 mg PO BEDTIME [facility] Last Admin: 03/18/22 19:03 Dose: 50 mg Chlorpromazine HCl (Chlorpromazine Hcl 25 Mg Tablet) 50 mg PO BEDTIME PRN PRN Reason: continued insomnia Chlorpromazine HCl (Chlorpromazine Hcl 25 Mg Tablet) 25 mg PO BID PRN PRN Reason: anxiety Last Admin: 03/18/22 16:17 Dose: 25 mg Clonazepam (Clonazepam 1 Mg Tablet) 1 mg PO BID PRN PRN Reason: Anxiety Last Admin: 03/18/22 16:09 Dose: 1 mg Clonidine HCl (Clonidine Hcl 0.2 Mg Tablet) 0.2 mg PO TID PRN; Protocol PRN Reason: Anxiety Last Admin: 03/18/22 16:09 Dose: 0.2 mg Clonidine HCl (Clonidine Hcl 0.2 Mg Tablet) 0.4 mg PO BEDTIME [facility]; Protocol Last Admin: 03/18/22 19:02 Dose: 0.4 mg Fluticasone Propionate (Fluticasone Propionate Nasal 16 Gm [place]) 1 spray NOSTRIL-B BID [facility] Last Admin: 03/19/22 09:33 Dose: 1 spray Folic Acid (Folic Acid 1 Mg Tablet) 1 mg PO DAILY [facility] Last Admin: 03/19/22 09:03 Dose: 1 mg Gabapentin (Gabapentin 600 Mg Tablet) 600 mg PO TID [facility] Last Admin: 03/19/22 09:03 Dose: 600 mg Hydrochlorothiazide (Hydrochlorothiazide 25 Mg Tablet) 25 mg PO DAILY [facility]; Protocol Last Admin: 03/19/22 09:03 Dose: 25 mg Hydroxyzine HCl (Hydroxyzine Hcl 50 Mg Tablet) 50 mg PO TID PRN PRN Reason: anxiety/insomnia Last Admin: 03/18/22 19:03 Dose: 50 mg Lurasidone HCl (Lurasidone Hcl 40 Mg Tablet) 120 mg PO BEDTIME [facility] Last Admin: 03/18/22 19:02 Dose: 120 mg Magnesium Hydroxide (Milk Of Magnesia 30 Ml Oral.Susp) 30 ml PO DAILY PRN PRN Reason: Constipation Metformin HCl (Metformin Hcl 500 Mg Tablet) 500 mg PO BID [facility] Last Admin: 03/19/22 09:03 Dose: 500 mg Methadone HCl (Methadone Hcl 20 Mg/2 Ml Oral.Conc) 180 mg PO DAILY [facility] Last Admin: 03/19/22 08:59 Dose: 180 mg Multivitamins/Vitamin C (Multivitamin Tablet) 1 tab PO DAILY [facility] Last Admin: 03/19/22 09:03 Dose: 1 tab Nicotine Polacrilex (Nicotine Polacrilex Lozenge 2 Mg Lozenge) 2 mg BUCCAL Q2H PRN PRN Reason: Nicotine Cravings Non-Formulary Medication (Lisdexamfetamine [Vyvanse]) 70 mg PO DAILY [facility] Omeprazole (Omeprazole 20 Mg Capsule.Dr) 20 mg PO BID@0630,1630 [facility] Last Admin: 03/19/22 09:03 Dose: 20 mg Pyridoxine HCl (Pyridoxine Hcl (Vitamin B6) 50 Mg Tablet) 50 mg PO DAILY [facility] Last Admin: 03/19/22 09:03 Dose: 50 mg Sertraline HCl (Sertraline Hcl 25 Mg Tablet) 75 mg PO DAILY [facility] Last Admin: 03/19/22 09:02 Dose: 75 mg Trazodone HCl (Trazodone Hcl 50 Mg Tablet) 50 mg PO BEDTIME PRN PRN Reason: Insomnia Last Admin: 03/18/22 19:12 Dose: 50 mg Allergies Allergies Allergy/AdvReac Type Severity Reaction Status Date / Time meperidine [From Demerol] Allergy Mild UNKNOWN Verified 08/31/21 06:57 Penicillins Allergy Mild UNKNOWN Verified 08/31/21 06:57 propoxyphene Allergy Mild UNKNOWN Verified 08/31/21 06:57 [From Darvocet-N 50] Sulfa (Sulfonamide Allergy Mild UNKNOWN, Verified 08/31/21 06:57 Antibiotics) HIVES penicillin V Allergy Unknown SWELLING Verified 08/31/21 06:57 Assessment & Plan Assessment & Plan (1) Bipolar 2 disorder, major depressive episode: Status: Acute Code(s): F31.81 - Bipolar II disorder (2) PTSD (post-traumatic stress disorder): Status: Acute Code(s): F43.10 - Post-traumatic stress disorder, unspecified (3) Opioid use disorder, moderate, in early remission: Status: Acute Code(s): F11.21 - Opioid dependence, in remission Plan Ms. Das is a 32 year-old woman with hx of Bipolar Disorder, PTSD, opioid use disorder in remission. Pt self presented to [facility] reporting increase depression, passive SI. Utox negative. It appears pt has not been able to participate in daily acitivites expected to complete while in residential dual dx treatment program due to depression. Pt recently dx with DM type 2 coping fairly well. In agreement to meet with biometrics experimentalist for further education. She started metformin one keep ago and is tolerating it well. Although pt denies sedation with current medications, in the past this has been of concern given combination of prescribed meds including methadone 180mg po daily, gabapentin 600mg po TID, clonazepam 1mg po BID- will closely monitor over sedation. Pt has worked very hard On her recovery and has been in residential programs for over a year with one relapsed last year in 08/2021. We discussed risks, benefits and alternative treatment options, pt agrees to lower seroquel, also with concern of weight gain and new dx of DM. PLAN 03/17- increase sertraline to 75mg po daily. Increase seroquel to 50mg po qhs as pt did not sleep well. monitor excessive sedation- not a concern at the moment. We also discussed considering TMS on discharge as pt has had multiple medication trials with partial effect. Pt seems interested. For now will continue titrate sertraline and continue wellbutrin 450mg po daily. 03/18 remains depressed with SI -Discontinued Seroquel; lower dose not helping with sleep and patient trying to get off -Started low-dose Thorazine 50 mg q.h.s. p.r.n. for insomnia since this med has a little less risk for weight gain; sign writer hand reviewed risks/side effects and patient agrees (says trazodone not that helpful) -reported hep B/C profile; patient concerned given history of needle sharing -ordered CMP as Labs reviewed and revealed patient was mildly hypokalemic and with very mildly elevated LFTs -Patient also asked about UTI medication for UTI diagnosed an emergency room; labs reviewed and it appears that repeat UA was unremarkable for UTI which is perhaps why antibiotic not continued; will touch base with hospitalist -Discussed case with nursing; met with patient; reviewed vitals and WNL; reviewed labs (see above); reviewed primary team providers' progress notes 03/19 remains depressed with suicidal ideation; however did sleep better. Despite depression and SI she is making medication choices that are future oriented Discussed case with nursing; met with patient; reviewed vitals and WNL Patient educated on: diagnosis and medication risk/benefits Informed Consent: understands Reason for contiued inpatient stay Substantial Risk for: harm to self and rapid decompensation Time Spent With Patient Time: Total time managing care of this patient today ____ minutes.
[2022-03-19] MEDS: cloNIDine HCL 0.2 MG TABLET PO ×2 (13:22→17:12)
[2022-03-19] MEDS: Acetaminophen 325 MG TABLET 650 MG PO ×2 (13:22→21:50)
[2022-03-19] MEDS: clonazePAM 1 MG TABLET PO ×2 (13:22→17:12)
[2022-03-19] MEDS: hydrOXYzine HCL 50 MG TABLET PO ×2 (17:12→21:44)
[2022-03-19 21:40] VITALS: BP 113/59; PULSE 76; TEMP 36.2; O2SAT 95
[2022-03-19] MEDS: Lurasidone HCl 40 MG TABLET 120 MG PO (21:43)
[2022-03-19] MEDS: traZODone HCL 50 MG TABLET PO (21:44)
[2022-03-19] MEDS: chlorproMAZINE HCl 25 MG TABLET 50 MG PO (21:44)
[2022-03-19] MEDS: cloNIDine HCL 0.2 MG TABLET 0.4 MG PO (21:44)
--- NOTE | 2022-03-19 23:16 | PC.NURSE ---
Patient utilizes prns to cope, but does not attend groups.
[2022-03-20 04:36] LABS: HBS Num1 115.43 mIU/mL (0-7.99); HBc Num1 0.06 S/CO (0.00-0.79); Hepatitis B Core Antibody Nonreactive (Nonreactive); Hepatitis B Surface Antigen Negative (Negative); ~HepC Num1 15.88 S/CO (0.00-0.79); ~Hepatitis B Surface Antibody REACTIVE (Nonreactive); ~Hepatitis C Antibody Reactive (Nonreactive)
[2022-03-20 06:00] VITALS: BP 134/81; PULSE 89; RESP 18
[2022-03-20] MEDS: Omeprazole 20 MG CAPSULE.DR PO ×2 (06:25→16:06)
[2022-03-20] MEDS: buPROPion HCl XL 300 MG TAB.ER.24H PO (08:12)
[2022-03-20] MEDS: Gabapentin 600 MG TABLET PO ×3 (08:12→21:54)
[2022-03-20] MEDS: hydroCHLOROthiazide 25 MG TABLET PO (08:12)
[2022-03-20] MEDS: metFORMIN HCl 500 MG TABLET PO ×2 (08:12→21:55)
[2022-03-20] MEDS: Multivitamin TABLET 1 TAB PO (08:12)
[2022-03-20] MEDS: buPROPion HCl XL 150 MG TAB.ER.24H PO (08:12)
[2022-03-20] MEDS: Pyridoxine HCl (Vitamin B6) 50 MG TABLET PO (08:12)
[2022-03-20] MEDS: Folic Acid 1 MG TABLET PO (08:12)
[2022-03-20] MEDS: Sertraline HCL 25 MG TABLET 75 MG PO (08:12)
[2022-03-20] MEDS: methADONE HCl 20 MG/2 ML ORAL.CONC 180 MG PO (08:14)
[2022-03-20] MEDS: cloNIDine HCL 0.2 MG TABLET PO ×2 (11:19→17:51)
[2022-03-20] MEDS: clonazePAM 1 MG TABLET PO ×2 (11:19→17:51)
[2022-03-20 11:20] VITALS: BP 119/66; PULSE 105
[2022-03-20] MEDS: chlorproMAZINE HCl 25 MG TABLET PO (16:06)
[2022-03-20] MEDS: hydrOXYzine HCL 50 MG TABLET PO (16:06)
[2022-03-20 17:45] VITALS: BP 115/64; PULSE 110; TEMP 36.1; O2SAT 96
[2022-03-20] MEDS: Acetaminophen 325 MG TABLET 650 MG PO (17:49)
--- NOTE | 2022-03-20 18:15 | HO.PSYCHPN ---
Subjective Subjective Date of Service: 03/20/22 Reason For Visit: SI Subjective Notes: Conditional Voluntary Healthcare Proxy: No Guardianship: No Medical Problems Affecting Mental Status: No Interim History: Initial meeting with pt. RAJESH COLES. Pt reports edema in both hands and feet with redness. Had felt an increase in depressive sx for 2 months prior-had been remaining in her room at the senior care, had not been showering and states she needed to leave the program as she had a wide range of sx and needed to address them, both medical and psych. New DM dx, A1C 7.9. Reports edema is improved. Reports med regime is effective. Chlorpromazine helpful for sleep. Depressive sx still present. Concern about having Lupus (reports mother of this) along with cardiac sx, precipitous changes in electrolytes, anemia and having had treatment for Hep C (Mavyret x 8 weeks with full reported compliance) but still being positive Medication Compliance: Yes Side effects from medications: No Attending Groups: Intermittent Review of Systems Acute medical concerns: Yes Medical Review of Systems: unchanged Mental Status Exam Mental Status Exam Patient Appearance: Appropriate Patient Orientation: Person, Place, Time and Situation Level of Consciousness: Alert Patient Behavior: Appropriate, Talkative, Cooperative and Good Eye Contact Mood Description: Constricted and Depressed Affect Description: Constricted and Flat Patient Cognition Impaired: No Ability to Follow Directions: Good Speech Pattern: Spontaneous Speech Memory Description: Intact Hallucinations: None Delusions: Not Present Thought Process: Goal Oriented Thought Content: positive for Goal Oriented Depressive Symptoms: Increased Anxiety, Hopelessness, Isolating-Friends/Family, Increased Fatigue, Loss of Energy and Difficulty Concentrating Judgement: Fair Diagnostics Vital Signs (24Hr): Vital Signs - 24 hr 03/19/22 21:40 03/20/22 06:00 03/20/22 11:20 Temperature 97.2 F Pulse Rate 76 89 105 H Respiratory Rate 18 Blood Pressure 113/59 L 134/81 119/66 Pulse Oximetry 95 Oxygen Delivery Method Room Air Room Air BMI result Body Mass Index 44.4 Labs 03/13/22 20:49 03/19/22 07:58 Labs: Laboratory Results - last 48 hr 03/19/22 03/19/22 07:58 07:58 Sodium 136 Potassium 3.8 D Chloride 98 Carbon Dioxide 27 Anion Gap 15 BUN 7 L Creatinine 0.75 Estim Creat Clear Calc 121.2 Estimated GFR > 60 Random Glucose 199 H Calcium 9.0 D Total Bilirubin 0.2 AST 33 H ALT 36 H Alkaline Phosphatase 87 Total Protein 6.6 Albumin 3.6 Hep Bs Antigen Negative Hep Bs Antibody REACTIVE Hep B Core Total Ab Nonreactive Hepatitis C Ab (EIA) Reactive H Medications Medications Current Medications Acetaminophen (Acetaminophen 325 Mg Tablet) 650 mg PO Q6H PRN PRN Reason: Headache/Pain Mild Scale (1-3) Last Admin: 03/20/22 17:49 Dose: 650 mg Al Hydroxide/Mg Hydroxide (Magnesium Hydrox/Alum Hydrox 30 Ml Oral.Susp) 30 ml PO Q6H PRN PRN Reason: Heartburn/Nausea Bupropion HCl (Bupropion Hcl Xl 150 Mg Tab.Er.24h) 150 mg PO DAILY AMELIE Last Admin: 03/20/22 08:12 Dose: 150 mg Bupropion HCl (Bupropion Hcl Xl 300 Mg Tab.Er.24h) 300 mg PO DAILY AMELIE Last Admin: 03/20/22 08:12 Dose: 300 mg Chlorpromazine HCl (Chlorpromazine Hcl 25 Mg Tablet) 50 mg PO BEDTIME AMELIE Last Admin: 03/19/22 21:44 Dose: 50 mg Chlorpromazine HCl (Chlorpromazine Hcl 25 Mg Tablet) 50 mg PO BEDTIME PRN PRN Reason: continued insomnia Chlorpromazine HCl (Chlorpromazine Hcl 25 Mg Tablet) 25 mg PO BID PRN PRN Reason: anxiety Last Admin: 03/20/22 16:06 Dose: 25 mg Clonazepam (Clonazepam 1 Mg Tablet) 1 mg PO BID PRN PRN Reason: Anxiety Last Admin: 03/20/22 17:51 Dose: 1 mg Clonidine HCl (Clonidine Hcl 0.2 Mg Tablet) 0.2 mg PO TID PRN; Protocol PRN Reason: Anxiety Last Admin: 03/20/22 17:51 Dose: 0.2 mg Clonidine HCl (Clonidine Hcl 0.2 Mg Tablet) 0.4 mg PO BEDTIME AMELIE; Protocol Last Admin: 03/19/22 21:44 Dose: 0.4 mg Fluticasone Propionate (Fluticasone Propionate Nasal 16 Gm [place]) 1 spray NOSTRIL-B BID [facility] Last Admin: 03/20/22 08:12 Dose: Not Given Folic Acid (Folic Acid 1 Mg Tablet) 1 mg PO DAILY AMELIE Last Admin: 03/20/22 08:12 Dose: 1 mg Gabapentin (Gabapentin 600 Mg Tablet) 600 mg PO TID [facility] Last Admin: 03/20/22 14:23 Dose: 600 mg Hydrochlorothiazide (Hydrochlorothiazide 25 Mg Tablet) 25 mg PO DAILY [facility]; Protocol Last Admin: 03/20/22 08:12 Dose: 25 mg Hydroxyzine HCl (Hydroxyzine Hcl 50 Mg Tablet) 50 mg PO TID PRN PRN Reason: anxiety/insomnia Last Admin: 03/20/22 16:06 Dose: 50 mg Lurasidone HCl (Lurasidone Hcl 40 Mg Tablet) 120 mg PO BEDTIME [facility] Last Admin: 03/19/22 21:43 Dose: 120 mg Magnesium Hydroxide (Milk Of Magnesia 30 Ml Oral.Susp) 30 ml PO DAILY PRN PRN Reason: Constipation Metformin HCl (Metformin Hcl 500 Mg Tablet) 500 mg PO BID [facility] Last Admin: 03/20/22 08:12 Dose: 500 mg Methadone HCl (Methadone Hcl 20 Mg/2 Ml Oral.Conc) 180 mg PO DAILY [facility] Last Admin: 03/20/22 08:14 Dose: 180 mg Multivitamins/Vitamin C (Multivitamin Tablet) 1 tab PO DAILY [facility] Last Admin: 03/20/22 08:12 Dose: 1 tab Nicotine Polacrilex (Nicotine Polacrilex Lozenge 2 Mg Lozenge) 2 mg BUCCAL Q2H PRN PRN Reason: Nicotine Cravings Non-Formulary Medication (Lisdexamfetamine [Vyvanse]) 70 mg PO DAILY [facility] Omeprazole (Omeprazole 20 Mg Capsule.Dr) 20 mg PO BID@0630,1630 [facility] Last Admin: 03/20/22 16:06 Dose: 20 mg Pyridoxine HCl (Pyridoxine Hcl (Vitamin B6) 50 Mg Tablet) 50 mg PO DAILY [facility] Last Admin: 03/20/22 08:12 Dose: 50 mg Sertraline HCl (Sertraline Hcl 25 Mg Tablet) 75 mg PO DAILY [facility] Last Admin: 03/20/22 08:12 Dose: 75 mg Trazodone HCl (Trazodone Hcl 50 Mg Tablet) 50 mg PO BEDTIME PRN PRN Reason: Insomnia Last Admin: 03/19/22 21:44 Dose: 50 mg Allergies Allergies Allergy/AdvReac Type Severity Reaction Status Date / Time meperidine [From Demerol] Allergy Mild UNKNOWN Verified 08/31/21 06:57 Penicillins Allergy Mild UNKNOWN Verified 08/31/21 06:57 propoxyphene Allergy Mild UNKNOWN Verified 08/31/21 06:57 [From Darvocet-N 50] Sulfa (Sulfonamide Allergy Mild UNKNOWN, Verified 08/31/21 06:57 Antibiotics) HIVES penicillin V Allergy Unknown SWELLING Verified 08/31/21 06:57 Assessment & Plan Assessment & Plan (1) Bipolar 2 disorder, major depressive episode: Status: Acute Code(s): F31.81 - Bipolar II disorder (2) PTSD (post-traumatic stress disorder): Status: Acute Code(s): F43.10 - Post-traumatic stress disorder, unspecified (3) Opioid use disorder, moderate, in early remission: Status: Acute Code(s): F11.21 - Opioid dependence, in remission Plan Ms. Das is a 32 year-old woman with hx of Bipolar Disorder, PTSD, opioid use disorder in remission. Pt self presented to [facility] ED reporting increase depression, passive SI. Utox negative. It appears pt has not been able to participate in daily acitivites expected to complete while in residential dual dx treatment program due to depression. Pt recently dx with DM type 2 coping fairly well. In agreement to meet with outside parts salesman for further education. She started metformin one keep ago and is tolerating it well. Although pt denies sedation with current medications, in the past this has been of concern given combination of prescribed meds including methadone 180mg po daily, gabapentin 600mg po TID, clonazepam 1mg po BID- will closely monitor over sedation. Pt has worked very hard On her recovery and has been in residential programs for over a year with one relapsed last year in 08/2021. We discussed risks, benefits and alternative treatment options, pt agrees to lower seroquel, also with concern of weight gain and new dx of DM. PLAN 03/17- increase sertraline to 75mg po daily. Increase seroquel to 50mg po qhs as pt did not sleep well. monitor excessive sedation- not a concern at the moment. We also discussed considering TMS on discharge as pt has had multiple medication trials with partial effect. Pt seems interested. For now will continue titrate sertraline and continue wellbutrin 450mg po daily. 03/18 remains depressed with SI -Discontinued Seroquel; lower dose not helping with sleep and patient trying to get off -Started low-dose Thorazine 50 mg q.h.s. p.r.n. for insomnia since this med has a little less risk for weight gain; telegraphic typewriter operator chief reviewed risks/side effects and patient agrees (says trazodone not that helpful) -reported hep B/C profile; patient concerned given history of needle sharing -ordered CMP as Labs reviewed and revealed patient was mildly hypokalemic and with very mildly elevated LFTs -Patient also asked about UTI medication for UTI diagnosed an emergency room; labs reviewed and it appears that repeat UA was unremarkable for UTI which is perhaps why antibiotic not continued; will touch base with hospitalist -Discussed case with nursing; met with patient; reviewed vitals and WNL; reviewed labs (see above); reviewed primary team providers' progress notes 03/19 remains depressed with suicidal ideation; however did sleep better. Despite depression and SI she is making medication choices that are future oriented Discussed case with nursing; met with patient; reviewed vitals and WNL 03/20/22- Anxious, Isolative, Depressed Reports regime to be helping CRP, ESR Patient educated on: medication risk/benefits, therapeutic strategies and medical condition Informed Consent: understands and further education needed Reason for contiued inpatient stay Substantial Risk for: harm to self and inability to function Time Spent With Patient Time: Total time managing care of this patient today ____ minutes. 40
[2022-03-20] MEDS: cloNIDine HCL 0.2 MG TABLET 0.4 MG PO (21:54)
[2022-03-20] MEDS: chlorproMAZINE HCl 25 MG TABLET 50 MG PO (21:55)
[2022-03-20] MEDS: Lurasidone HCl 40 MG TABLET 120 MG PO (21:55)
[2022-03-20] MEDS: traZODone HCL 50 MG TABLET PO (21:57)
[2022-03-20] MEDS: Fluticasone Propionate Nasal 16 GM SPRAY 1 SPRAY NOSTRIL-B (22:15)
[2022-03-21] MEDS: Omeprazole 20 MG CAPSULE.DR PO ×2 (07:05→16:13)
[2022-03-21 08:42] LABS: C Reactive Protein 0.49 mg/dL (< or = 0.50)
--- NOTE | 2022-03-21 09:00 | ECG_ITS ---
Test Reason : eval ck qt Blood Pressure : / mmHG Vent. Rate : 099 BPM Atrial Rate : 099 BPM P-R Int : 146 ms QRS Dur : 114 ms QT Int : 376 ms P-R-T Axes : 043 068 055 degrees QTc Int : 482 ms Normal sinus rhythm Cannot rule out Inferior infarct , age undetermined Abnormal ECG When compared with ECG of 23-AUG-2021 13:43, Nonspecific T wave abnormality now evident in Inferior leads Referred By: Anali Sanchez Electronically Signed By:LUIZ NAVAS MD
[2022-03-21 09:09] LABS: Erythrocyte Sedimentation Rate 18 MM/HR (0-20)
[2022-03-21 09:15] VITALS: BP 112/77; PULSE 108; RESP 16; TEMP 36; O2SAT 96
[2022-03-21] MEDS: Sertraline HCL 25 MG TABLET 75 MG PO (09:22)
[2022-03-21] MEDS: buPROPion HCl XL 300 MG TAB.ER.24H PO (09:23)
[2022-03-21] MEDS: Folic Acid 1 MG TABLET PO (09:23)
[2022-03-21] MEDS: Gabapentin 600 MG TABLET PO ×3 (09:23→19:46)
[2022-03-21] MEDS: metFORMIN HCl 500 MG TABLET PO ×2 (09:23→19:46)
[2022-03-21] MEDS: Pyridoxine HCl (Vitamin B6) 50 MG TABLET PO (09:23)
[2022-03-21] MEDS: Multivitamin TABLET 1 TAB PO (09:23)
[2022-03-21] MEDS: hydroCHLOROthiazide 25 MG TABLET PO (09:23)
[2022-03-21] MEDS: buPROPion HCl XL 150 MG TAB.ER.24H PO (09:23)
[2022-03-21] MEDS: Fluticasone Propionate Nasal 16 GM SPRAY 1 SPRAY NOSTRIL-B ×2 (09:26→19:49)
[2022-03-21] MEDS: methADONE HCl 20 MG/2 ML ORAL.CONC 180 MG PO (09:26)
--- NOTE | 2022-03-21 12:39 | P.PNPSI_ITS ---
Subjective Subjective Date of Service: 03/21/22 Reason For Visit: SI Subjective Notes: Conditional Voluntary Healthcare Proxy: No Guardianship: No Medical Problems Affecting Mental Status: No Interim History: Review of diagnostics. ESR, CRP WNL. Discussion of anemia, Hep C Rx- Mavyret 2019- I may have re-infected. Pt told of UTI at [facility]-review of clear urine testing here, pt will sx. will do brief Bactrim intervention Discussed EKG changes-pt reports an episode of chest pain-did go for rx but did not stay to complete eval. EKG 08/23 WNL with changes on 03/2022 tracing Edema in hands and feet persist with reddened areas Pt feeling ready to increase Sertraline to address depressive sx. Medication Compliance: Yes Side effects from medications: No Attending Groups: Intermittent Review of Systems Acute medical concerns: Yes as noted Medical Review of Systems: unchanged Mental Status Exam Mental Status Exam Patient Appearance: Appropriate Patient Orientation: Person, Place, Time and Situation Level of Consciousness: Alert Patient Behavior: Appropriate, Talkative, Cooperative and Good Eye Contact Mood Description: Constricted and Depressed Affect Description: Constricted and Flat Patient Cognition Impaired: No Ability to Follow Directions: Good Speech Pattern: Spontaneous Speech Memory Description: Intact Hallucinations: None Delusions: Not Present Thought Process: Goal Oriented Thought Content: positive for Goal Oriented Depressive Symptoms: Increased Anxiety, Hopelessness, Isolating-Friends/Family, Increased Fatigue, Loss of Energy and Difficulty Concentrating Judgement: Fair Diagnostics Vital Signs (24Hr): Vital Signs - 24 hr 03/20/22 17:45 03/21/22 09:15 Temperature 96.9 F 96.8 F Pulse Rate 110 H 108 H Respiratory Rate 16 Blood Pressure 115/64 112/77 Pulse Oximetry 96 96 Oxygen Delivery Method Room Air Room Air BMI result Body Mass Index 44.4 Labs 03/13/22 20:49 03/19/22 07:58 Labs: Laboratory Results - last 48 hr 03/19/22 03/21/22 03/21/22 07:58 08:07 08:07 ESR 18 C-Reactive Protein 0.49 Hep Bs Antigen Negative Hep Bs Antibody REACTIVE Hep B Core Total Ab Nonreactive Hepatitis C Ab (EIA) Reactive H Medications Medications Current Medications Acetaminophen (Acetaminophen 325 Mg Tablet) 650 mg PO Q6H PRN PRN Reason: Headache/Pain Mild Scale (1-3) Last Admin: 03/20/22 17:49 Dose: 650 mg Al Hydroxide/Mg Hydroxide (Magnesium Hydrox/Alum Hydrox 30 Ml Oral.Susp) 30 ml PO Q6H PRN PRN Reason: Heartburn/Nausea Bupropion HCl (Bupropion Hcl Xl 150 Mg Tab.Er.24h) 150 mg PO DAILY AMELIE Last Admin: 03/21/22 09:23 Dose: 150 mg Bupropion HCl (Bupropion Hcl Xl 300 Mg Tab.Er.24h) 300 mg PO DAILY AMELIE Last Admin: 03/21/22 09:23 Dose: 300 mg Chlorpromazine HCl (Chlorpromazine Hcl 25 Mg Tablet) 50 mg PO BEDTIME AMELIE Last Admin: 03/20/22 21:55 Dose: 50 mg Chlorpromazine HCl (Chlorpromazine Hcl 25 Mg Tablet) 50 mg PO BEDTIME PRN PRN Reason: continued insomnia Chlorpromazine HCl (Chlorpromazine Hcl 25 Mg Tablet) 25 mg PO BID PRN PRN Reason: anxiety Last Admin: 03/20/22 16:06 Dose: 25 mg Clonazepam (Clonazepam 1 Mg Tablet) 1 mg PO BID PRN PRN Reason: Anxiety Last Admin: 03/20/22 17:51 Dose: 1 mg Clonidine HCl (Clonidine Hcl 0.2 Mg Tablet) 0.2 mg PO TID PRN; Protocol PRN Reason: Anxiety Last Admin: 03/20/22 17:51 Dose: 0.2 mg Clonidine HCl (Clonidine Hcl 0.2 Mg Tablet) 0.4 mg PO BEDTIME AMELIE; Protocol Last Admin: 03/20/22 21:54 Dose: 0.4 mg Fluticasone Propionate (Fluticasone Propionate Nasal 16 Gm [place]) 1 spray NOSTRIL-B BID [facility] Last Admin: 03/21/22 09:26 Dose: 1 spray Folic Acid (Folic Acid 1 Mg Tablet) 1 mg PO DAILY AMELIE Last Admin: 03/21/22 09:23 Dose: 1 mg Gabapentin (Gabapentin 600 Mg Tablet) 600 mg PO TID AMELIE Last Admin: 03/21/22 09:23 Dose: 600 mg Hydrochlorothiazide (Hydrochlorothiazide 25 Mg Tablet) 25 mg PO DAILY [facility]; Protocol Last Admin: 03/21/22 09:23 Dose: 25 mg Hydroxyzine HCl (Hydroxyzine Hcl 50 Mg Tablet) 50 mg PO TID PRN PRN Reason: anxiety/insomnia Last Admin: 03/20/22 16:06 Dose: 50 mg Lurasidone HCl (Lurasidone Hcl 40 Mg Tablet) 120 mg PO BEDTIME [facility] Last Admin: 03/20/22 21:55 Dose: 120 mg Magnesium Hydroxide (Milk Of Magnesia 30 Ml Oral.Susp) 30 ml PO DAILY PRN PRN Reason: Constipation Metformin HCl (Metformin Hcl 500 Mg Tablet) 500 mg PO BID [facility] Last Admin: 03/21/22 09:23 Dose: 500 mg Methadone HCl (Methadone Hcl 20 Mg/2 Ml Oral.Conc) 180 mg PO DAILY [facility] Last Admin: 03/21/22 09:26 Dose: 180 mg Multivitamins/Vitamin C (Multivitamin Tablet) 1 tab PO DAILY [facility] Last Admin: 03/21/22 09:23 Dose: 1 tab Nicotine Polacrilex (Nicotine Polacrilex Lozenge 2 Mg Lozenge) 2 mg BUCCAL Q2H PRN PRN Reason: Nicotine Cravings Non-Formulary Medication (Lisdexamfetamine [Vyvanse]) 70 mg PO DAILY [facility] Omeprazole (Omeprazole 20 Mg Capsule.Dr) 20 mg PO BID@0630,1630 [facility] Last Admin: 03/21/22 07:05 Dose: 20 mg Pyridoxine HCl (Pyridoxine Hcl (Vitamin B6) 50 Mg Tablet) 50 mg PO DAILY [facility] Last Admin: 03/21/22 09:23 Dose: 50 mg Sertraline HCl (Sertraline Hcl 25 Mg Tablet) 75 mg PO DAILY [facility] Last Admin: 03/21/22 09:22 Dose: 75 mg Trazodone HCl (Trazodone Hcl 50 Mg Tablet) 50 mg PO BEDTIME PRN PRN Reason: Insomnia Last Admin: 03/20/22 21:57 Dose: 50 mg Allergies Allergies Allergy/AdvReac Type Severity Reaction Status Date / Time meperidine [From Demerol] Allergy Mild UNKNOWN Verified 08/31/21 06:57 Penicillins Allergy Mild UNKNOWN Verified 08/31/21 06:57 propoxyphene Allergy Mild UNKNOWN Verified 08/31/21 06:57 [From Darvocet-N 50] Sulfa (Sulfonamide Allergy Mild UNKNOWN, Verified 08/31/21 06:57 Antibiotics) HIVES penicillin V Allergy Unknown SWELLING Verified 08/31/21 06:57 Assessment & Plan Assessment & Plan (1) Bipolar 2 disorder, major depressive episode: Status: Acute Code(s): F31.81 - Bipolar II disorder (2) PTSD (post-traumatic stress disorder): Status: Acute Code(s): F43.10 - Post-traumatic stress disorder, unspecified (3) Opioid use disorder, moderate, in early remission: Status: Acute Code(s): F11.21 - Opioid dependence, in remission Plan Ms. Das is a 32 year-old woman with hx of Bipolar Disorder, PTSD, opioid use disorder in remission. Pt self presented to [facility] ED reporting increase depression, passive SI. Utox negative. It appears pt has not been able to participate in daily acitivites expected to complete while in residential dual dx treatment program due to depression. Pt recently dx with DM type 2 coping fa irly well. In agreement to meet with switchboard operator receptionist for further education. She started metformin one keep ago and is tolerating it well. Although pt denies sedation with current medications, in the past this has been of concern given combination of prescribed meds including methadone 180mg po daily, gabapentin 600mg po TID, clonazepam 1mg po BID- will closely monitor over sedation. Pt has worked very hard On her recovery and has been in residential programs for over a year with one relapsed last year in 08/2021. We discussed risks, benefits and alternative treatment options, pt agrees to lower seroquel, also with concern of weight gain and new dx of DM. PLAN 03/17- increase sertraline to 75mg po daily. Increase seroquel to 50mg po qhs as pt did not sleep well. monitor excessive sedation- not a concern at the moment. We also discussed considering TMS on discharge as pt has had multiple medication trials with partial effect. Pt seems interested. For now will continue titrate sertraline and continue wellbutrin 450mg po daily. 03/18 remains depressed with SI -Discontinued Seroquel; lower dose not helping with sleep and patient trying to get off -Started low-dose Thorazine 50 mg q.h.s. p.r.n. for insomnia since this med has a little less risk for weight gain; telegraphic typewriter installer reviewed risks/side effects and patient agrees (says trazodone not that helpful) -reported hep B/C profile; patient concerned given history of needle sharing -ordered CMP as Labs reviewed and revealed patient was mildly hypokalemic and with very mildly elevated LFTs -Patient also asked about UTI medication for UTI diagnosed an emergency room; labs reviewed and it appears that repeat UA was unremarkable for UTI which is perhaps why antibiotic not continued; will touch base with hospitalist -Discussed case with nursing; met with patient; reviewed vitals and WNL; reviewed labs (see above); reviewed primary team providers' progress notes 03/19 remains depressed with suicidal ideation; however did sleep better. D espite depression and SI she is making medication choices that are future oriented Discussed case with nursing; met with patient; reviewed vitals and WNL 03/21/22-Increase Sertraline to 100 mg daily Cardiology consult. Patient educated on: medication risk/benefits and medical condition Informed Consent: understands and further education needed Reason for contiued inpatient stay Substantial Risk for: med/psych decompensation Time Spent With Patient Time: Total time managing care of this patient today _30___ minutes.
[2022-03-21 13:10] VITALS: BP 133/73; PULSE 111
[2022-03-21] MEDS: clonazePAM 1 MG TABLET PO ×2 (13:13→18:22)
[2022-03-21] MEDS: Acetaminophen 325 MG TABLET 650 MG PO (13:14)
[2022-03-21] MEDS: cloNIDine HCL 0.2 MG TABLET PO (13:14)
[2022-03-21] MEDS: hydrOXYzine HCL 50 MG TABLET PO (16:13)
[2022-03-21] MEDS: chlorproMAZINE HCl 25 MG TABLET PO (16:19)
[2022-03-21 18:00] VITALS: BP 112/67; PULSE 100; TEMP 36; O2SAT 93
[2022-03-21] MEDS: Sulfamethox/Trimeth 800/160 TABLET 1 TAB PO (18:22)
[2022-03-21] MEDS: cloNIDine HCL 0.2 MG TABLET 0.4 MG PO (19:46)
[2022-03-21] MEDS: chlorproMAZINE HCl 25 MG TABLET 50 MG PO (19:47)
[2022-03-21] MEDS: Lurasidone HCl 40 MG TABLET 120 MG PO (19:47)
[2022-03-21] MEDS: traZODone HCL 50 MG TABLET PO (19:49)
[2022-03-21 19:50] VITALS: BP 122/65; PULSE 109
[2022-03-22 06:00] VITALS: BP 118/78; PULSE 113; RESP 16; TEMP 36.4; O2SAT 95
[2022-03-22] MEDS: Fluticasone Propionate Nasal 16 GM SPRAY 1 SPRAY NOSTRIL-B (09:01)
[2022-03-22] MEDS: metFORMIN HCl 500 MG TABLET PO ×2 (09:02→19:22)
[2022-03-22] MEDS: buPROPion HCl XL 150 MG TAB.ER.24H PO (09:02)
[2022-03-22] MEDS: Pyridoxine HCl (Vitamin B6) 50 MG TABLET PO (09:02)
[2022-03-22] MEDS: buPROPion HCl XL 300 MG TAB.ER.24H PO (09:02)
[2022-03-22] MEDS: Gabapentin 600 MG TABLET PO ×3 (09:02→19:23)
[2022-03-22] MEDS: Sertraline HCL 100 MG TABLET PO (09:02)
[2022-03-22] MEDS: Omeprazole 20 MG CAPSULE.DR PO ×2 (09:02→15:40)
[2022-03-22] MEDS: Folic Acid 1 MG TABLET PO (09:03)
[2022-03-22] MEDS: hydroCHLOROthiazide 25 MG TABLET PO (09:03)
[2022-03-22] MEDS: Multivitamin TABLET 1 TAB PO (09:03)
[2022-03-22] MEDS: methADONE HCl 20 MG/2 ML ORAL.CONC 180 MG PO (09:05)
[2022-03-22] MEDS: Sulfamethox/Trimeth 800/160 TABLET 1 TAB PO ×2 (09:18→21:57)
[2022-03-22] MEDS: cloNIDine HCL 0.2 MG TABLET PO ×2 (10:59→18:24)
[2022-03-22 11:02] VITALS: BP 126/81; PULSE 120
[2022-03-22] MEDS: hydrOXYzine HCL 50 MG TABLET PO ×2 (11:02→19:27)
[2022-03-22] MEDS: clonazePAM 1 MG TABLET PO ×2 (12:44→18:24)
--- NOTE | 2022-03-22 14:05 | PM.CNCAR ---
History of Present Illness History of Present Illness Date of Service: 03/22/22 Requesting physician: Anali Sanchez Consult reason: chest pain Chief complaint: SI Narrative: I was consulted to see Tasha in cardiology consultation today, she has been admitted for suicidal ideation. She has prior history of posttraumatic stress disorder as well as depression and bipolar disorder. She also has history of morbid obesity. She was admitted for suicidal ideation. In the last year she had present to [facility] with severe chest pain at that time she had markedly elevated blood pressure. At that time she was then started on atenolol therapy. Her blood pressures been well controlled. In January because of hand edema and leg edema on atenolol was discontinued. However since then her blood pressures been well controlled. She gets intermittent episode of retrosternal chest pain which is sharp in nature and not associated with exertion. chest pain happens at rest randomly with no clear pattern. Last for 20 seconds. She has exertional shortness of breath but this could be related to her weight. She denies any clear orthopnea, PND. No lightheadedness, syncope. Currently not on any antihypertensive medications Except for clonidine which is being utilized for anxiety. Patient EKG which showed inferior Q-waves in lead 3 and AVF more prominently which are most suggestive pseudo inferior infarct pattern most likely due to body habitus. Compared to old EKGs and no significant changes. There are nonspecific ST T wave changes noted on current EKG Review of Systems Constitutional: Constitutional: Reports no additional constitutional complaints Eyes: Eyes: Reports no additional eye complaints Cardiovascular: Cardiovascular: Reports chest pain at rest, Denies pedal edema, Denies lightheadedness, Denies Loss of Consciousness, Denies radiating jaw, neck or arm pain, Denies palpitations, Reports dyspnea on exertion and Denies orthopnea Respiratory: Respiratory: Reports no additional respiratory complaints and Reports dyspnea on exertion Gastrointestinal: Gastrointestinal: Reports no additional gastrointestinal complaints Genitourinary: Genitourinary: Reports no additional female genitourinary complaints Musculoskeletal: Musculoskeletal: Reports no additional musculoskeletal complaints Integumentary/Breasts: Skin/Breast: Reports system reviewed and no additional complaints, except as docu Neurologic: Reports system reviewed and no additional complaints, except as documented Psychiatric: Psychiatric: Reports no additional psychiatric complaints Endocrine: Endocrine: Reports no additional endocrine complaints and Denies palpitations Hematologic/Lymphatic: Hematologic/Lymphatic: Reports no additional hematologic/lymphatic complaints [facility] Past Medical History Medical History (Updated 03/22/22 @ 14:15 by Pritesh Combs MD) Hypertension Social History Social History Household Members: None Household Members Other:: Live at a program Housing: Homeless Housing Other:: [facility] Do you presently have visiting nurse or other home services: No Patient Tobacco Use Status: Current everyday Tobacco user Tobacco use type: Smokeless Tobacco Cigarette Packs Per Day: 0.5 Cigarettes Per Day: 10.0 Years Smoked: 12 Smoked in Last 30 Days: Yes e-Cigarette/Vaping Use: Currently Using Patient Interested in Nicotine Replacement: Yes (patch, lozenge, gum) Patient Given Instructions on How to Stop Smoking: Yes Date Education Initiated: 03/15/22 Second Hand Smoke Exposure: No Use of substances other than those prescribed or required for medical reasons: No Substance Use Type: Amphetamines, Crack/Cocaine, Heroin and Opiates Currently Displaying Signs/Symptoms of Drug Intoxication Withdrawal: No Have you been hit, kicked, punched, or otherwise hurt by someone within the past year? If so, by whom?: No Do you feel safe in your current relationship?: No Current Relationship Is there a partner from a previous relationship who is making you feel unsafe now?: No Are you made to feel afraid or neglected: No Advance Directives: No Advance Directives Information Provided: Yes Guardian: No Do you have thoughts of harming others: None Do you have a plan to hurt others: No Plan Recently lost weight without trying: No How much weight loss: Not applicable Eating poorly because of decreased appetite: No Nutrition screen score: 0 Nutrition Risks: No Nutritional Risk Patient : No : No Poor oral hygiene: No service: No Sexual orientation: Straight/Heterosexual Meds Allergies Allergy/AdvReac Type Severity Reaction Status Date / Time meperidine [From Demerol] Allergy Mild UNKNOWN Verified 08/31/21 06:57 Penicillins Allergy Mild UNKNOWN Verified 08/31/21 06:57 propoxyphene Allergy Mild UNKNOWN Verified 08/31/21 06:57 [From Darvocet-N 50] Sulfa (Sulfonamide Allergy Mild UNKNOWN, Verified 08/31/21 06:57 Antibiotics) HIVES penicillin V Allergy Unknown SWELLING Verified 08/31/21 06:57 Active Medications: Current Medications Acetaminophen (Acetaminophen 325 Mg Tablet) 650 mg PO Q6H PRN PRN Reason: Headache/Pain Mild Scale (1-3) Last Admin: 03/21/22 13:14 Dose: 650 mg Al Hydroxide/Mg Hydroxide (Magnesium Hydrox/Alum Hydrox 30 Ml Oral.Susp) 30 ml PO Q6H PRN PRN Reason: Heartburn/Nausea Bupropion HCl (Bupropion Hcl Xl 150 Mg Tab.Er.24h) 150 mg PO DAILY [facility] Last Admin: 03/22/22 09:02 Dose: 150 mg Bupropion HCl (Bupropion Hcl Xl 300 Mg Tab.Er.24h) 300 mg PO DAILY [facility] Last Admin: 03/22/22 09:02 Dose: 300 mg Chlorpromazine HCl (Chlorpromazine Hcl 25 Mg Tablet) 50 mg PO BEDTIME [facility] Last Admin: 03/21/22 19:47 Dose: 50 mg Chlorpromazine HCl (Chlorpromazine Hcl 25 Mg Tablet) 50 mg PO BEDTIME PRN PRN Reason: continued insomnia Chlorpromazine HCl (Chlorpromazine Hcl 25 Mg Tablet) 25 mg PO BID PRN PRN Reason: anxiety Last Admin: 03/21/22 16:19 Dose: 25 mg Clonazepam (Clonazepam 1 Mg Tablet) 1 mg PO BID PRN PRN Reason: Anxiety Last Admin: 03/22/22 12:44 Dose: 1 mg Clonidine HCl (Clonidine Hcl 0.2 Mg Tablet) 0.2 mg PO TID PRN; Protocol PRN Reason: Anxiety Last Admin: 03/22/22 10:59 Dose: 0.2 mg Clonidine HCl (Clonidine Hcl 0.2 Mg Tablet) 0.4 mg PO BEDTIME [facility]; Protocol Last Admin: 03/21/22 19:46 Dose: 0.4 mg Fluticasone Propionate (Fluticasone Propionate Nasal 16 Gm [place]) 1 spray NOSTRIL-B BID [facility] Last Admin: 03/22/22 09:01 Dose: 1 spray Folic Acid (Folic Acid 1 Mg Tablet) 1 mg PO DAILY [facility] Last Admin: 03/22/22 09:03 Dose: 1 mg Gabapentin (Gabapentin 600 Mg Tablet) 600 mg PO TID [facility] Last Admin: 03/22/22 09:02 Dose: 600 mg Hydrochlorothiazide (Hydrochlorothiazide 25 Mg Tablet) 25 mg PO DAILY [facility]; Protocol Last Admin: 03/22/22 09:03 Dose: 25 mg Hydroxyzine HCl (Hydroxyzine Hcl 50 Mg Tablet) 50 mg PO TID PRN PRN Reason: anxiety/insomnia Last Admin: 03/22/22 11:02 Dose: 50 mg Lurasidone HCl (Lurasidone Hcl 40 Mg Tablet) 120 mg PO BEDTIME [facility] Last Admin: 03/21/22 19:47 Dose: 120 mg Magnesium Hydroxide (Milk Of Magnesia 30 Ml Oral.Susp) 30 ml PO DAILY PRN PRN Reason: Constipation Metformin HCl (Metformin Hcl 500 Mg Tablet) 500 mg PO BID [facility] Last Admin: 03/22/22 09:02 Dose: 500 mg Methadone HCl (Methadone Hcl 20 Mg/2 Ml Oral.Conc) 180 mg PO DAILY [facility] Last Admin: 03/22/22 09:05 Dose: 180 mg Multivitamins/Vitamin C (Multivitamin Tablet) 1 tab PO DAILY [facility] Last Admin: 03/22/22 09:03 Dose: 1 tab Nicotine Polacrilex (Nicotine Polacrilex Lozenge 2 Mg Lozenge) 2 mg BUCCAL Q2H PRN PRN Reason: Nicotine Cravings Non-Formulary Medication (Lisdexamfetamine [Vyvanse]) 70 mg PO DAILY [facility] Omeprazole (Omeprazole 20 Mg Capsule.Dr) 20 mg PO BID@0630,1630 [facility] Last Admin: 03/22/22 09:02 Dose: 20 mg Pyridoxine HCl (Pyridoxine Hcl (Vitamin B6) 50 Mg Tablet) 50 mg PO DAILY [facility] Last Admin: 03/22/22 09:02 Dose: 50 mg Sertraline HCl (Sertraline Hcl 100 Mg Tablet) 100 mg PO DAILY [facility] Last Admin: 03/22/22 09:02 Dose: 100 mg Trazodone HCl (Trazodone Hcl 50 Mg Tablet) 50 mg PO BEDTIME PRN PRN Reason: Insomnia Last Admin: 03/21/22 19:49 Dose: 50 mg Trimethoprim/Sulfamethoxazole (Sulfamethox/Trimeth 800/160 Tablet) 1 tab PO 08,1999 [facility] Last Admin: 03/22/22 09:18 Dose: 1 tab Home Medications Medication Instructions Recorded Confirmed Last Taken Type methadone 10 mg/5 mL oral solution 180 mg PO DAILY 04/15/21 03/14/22 03/12/22 History atenolol 25 mg tablet 25 mg PO DAILY 08/23/21 03/13/22 Unknown History bupropion HCl 150 mg 24 hr tablet, 150 mg PO QAM 08/23/21 03/13/22 Unknown History extended release bupropion HCl 300 mg 24 hr tablet, 300 mg PO QAM 08/23/21 03/13/22 Unknown History extended release clonidine HCl 0.1 mg tablet 0.2 mg PO TID PRN Anxiety 08/23/21 03/13/22 Unknown History folic acid 1 mg tablet 1 mg PO DAILY 08/23/21 03/13/22 Unknown History hydroxyzine HCl 25 mg tablet 25 - 50 mg PO BID PRN Anxiety 08/23/21 03/13/22 Unknown History lisdexamfetamine 70 mg capsule 70 mg PO DAILY@1200 08/23/21 03/13/22 Unknown History (Vyvanse) multivitamin 1 tab PO DAILY 08/23/21 03/13/22 Unknown History omeprazole 20 mg capsule,delayed 20 mg PO BID 08/23/21 03/13/22 Unknown History release clonidine HCl 0.2 mg tablet 0.4 mg PO BEDTIME 03/13/22 03/13/22 Unknown History fluticasone propionate 50 1 spray intranasal BID 03/13/22 03/13/22 Unknown History mcg/actuation nasal spray,suspension hydrochlorothiazide 12.5 mg tablet 12.5 mg PO DAILY 03/13/22 03/13/22 Unknown History metformin 500 mg tablet 500 mg PO BID 03/13/22 03/13/22 Unknown History nicotine (polacrilex) 2 mg buccal 2 mg buccal Q2H PRN Nicotine 03/13/22 03/13/22 Unknown History lozenge Cravings pyridoxine (vitamin B6) 50 mg 50 mg PO DAILY 03/13/22 03/13/22 Unknown History tablet Physical Exam Vital Signs: Vital Signs: Last Vital Signs Temp 97.5 F 03/22/22 06:00 Pulse 120 H 03/22/22 11:02 Resp 16 03/22/22 06:00 BP 126/81 03/22/22 11:02 Pulse Ox 95 03/22/22 06:00 O2 Del Method 03/22/22 06:00 BMI result Body Mass Index 44.4 Const: General: cooperative, comfortable, no acute distress, alert and awake Nutritional Appearance: obese morbidly obese Orientation/consciousness: patient oriented x3 Limitations: no limitations HEENT: Head: Yes normocephalic and Yes atraumatic Neck: Neck: Yes trachea midline, Yes supple and Yes no JVD Chest: Chest palpation & inspection: normal inspection of the chest Resp: Effort & Inspection: normal respiratory effort Auscultation: clear to auscultation bilaterally Cardio: Jugular venous distension: no JVD Rate: regular rate Rhythm: regular rhythm Heart sounds: S1 normal heart sound present, S2 normal heart sound present, no click, no gallops, no murmurs and no rubs GI: Auscultation: normal bowel sounds Skin: General skin exam: no rashes or lesions noted Neuro: General: patient oriented x3 and no focal motor deficits Extrem: General: Yes no clubbing, cyanosis or edema Objective Labs and Meds 03/13/22 20:49 03/19/22 07:58 Assessment and Plan (1) Atypical chest pain: Status: Acute atypical chest pain this young woman which is most likely suggestive musculoskeletal chest pain. Unlikely to represent myocardial ischemia. Currently she is having chest pain despite having normal blood pressure and unlikely hypertension related as well. Question anxiety. Can have outpatient workup with exercise myocardial perfusion imaging once discharged from psychiatric care. (2) Hypertension: Status: Acute Prior history of hypertension, currently well controlled without any antihypertensive medication except for clonidine which is being used for psychiatric purposes. High likelihood of underlying obstructive sleep apnea. Needs workup for sleep study as outpatient and if present needs aggressive treatment for the same. Also aggressive weight loss program suggested. Low-salt diet was discussed. Should get an echocardiogram to evaluate LV systolic and diastolic function especially given family history of heart failure and to evaluate for hypertensive heart disease. Clinically does not have any overt signs of heart failure. EKG abnormality most likely false-positive due to body habitus and suggestive pseudo inferior infarct pattern. Echocardiogram as above. No therapy is recommended at this point time. Will sign of the case at this point in time. Time Spent With Patient Time: Total time managing care of this patient today ____ minutes. Procedures Date of Service Date of Service: 03/22/22
[2022-03-22 18:00] VITALS: BP 133/75; PULSE 82; TEMP 36.3; O2SAT 95
--- NOTE | 2022-03-22 18:34 | HO.PSYCHPN ---
Subjective Subjective Date of Service: 03/22/22 Reason For Visit: SI Subjective Notes: Conditional Voluntary Healthcare Proxy: No Guardianship: No Medical Problems Affecting Mental Status: No Interim History: Cardiology consult appreciated. Tolerating Sertraline increase, remains depressed with SI Spending much time isolative, in her room, in bed, awake, resting Reports sleep issues-encouraged to be out of bed during the day as much as possible. Medication Compliance: Yes Side effects from medications: No Attending Groups: Intermittent Review of Systems Acute medical concerns: No Echocardiogram recommended Sleep Apnea eval recommended Medical Review of Systems: unchanged Mental Status Exam Mental Status Exam Patient Appearance: Appropriate Patient Orientation: Person, Place, Time and Situation Level of Consciousness: Alert Patient Behavior: Appropriate, Talkative, Cooperative and Good Eye Contact Mood Description: Constricted and Depressed Affect Description: Constricted and Flat Patient Cognition Impaired: No Ability to Follow Directions: Good Speech Pattern: Spontaneous Speech Memory Description: Intact Hallucinations: None Delusions: Not Present Thought Process: Goal Oriented Thought Content: positive for Goal Oriented Depressive Symptoms: Increased Anxiety, Hopelessness, Isolating-Friends/Family, Increased Fatigue, Loss of Energy and Difficulty Concentrating Judgement: Fair Diagnostics Vital Signs (24Hr): Vital Signs - 24 hr 03/21/22 19:50 03/22/22 06:00 03/22/22 11:02 Temperature 97.5 F Pulse Rate 109 H 113 H 120 H Respiratory Rate 16 Blood Pressure 122/65 118/78 126/81 Pulse Oximetry 95 Oxygen Delivery Method Room Air BMI result Body Mass Index 44.4 Labs 03/13/22 20:49 03/19/22 07:58 Labs: Laboratory Results - last 48 hr 03/21/22 03/21/22 08:07 08:07 ESR 18 C-Reactive Protein 0.49 Medications Medications Current Medications Acetaminophen (Acetaminophen 325 Mg Tablet) 650 mg PO Q6H PRN PRN Reason: Headache/Pain Mild Scale (1-3) Last Admin: 03/21/22 13:14 Dose: 650 mg Al Hydroxide/Mg Hydroxide (Magnesium Hydrox/Alum Hydrox 30 Ml Oral.Susp) 30 ml PO Q6H PRN PRN Reason: Heartburn/Nausea Bupropion HCl (Bupropion Hcl Xl 150 Mg Tab.Er.24h) 150 mg PO DAILY [facility] Last Admin: 03/22/22 09:02 Dose: 150 mg Bupropion HCl (Bupropion Hcl Xl 300 Mg Tab.Er.24h) 300 mg PO DAILY [facility] Last Admin: 03/22/22 09:02 Dose: 300 mg Chlorpromazine HCl (Chlorpromazine Hcl 25 Mg Tablet) 50 mg PO BEDTIME [facility] Last Admin: 03/21/22 19:47 Dose: 50 mg Chlorpromazine HCl (Chlorpromazine Hcl 25 Mg Tablet) 50 mg PO BEDTIME PRN PRN Reason: continued insomnia Chlorpromazine HCl (Chlorpromazine Hcl 25 Mg Tablet) 25 mg PO BID PRN PRN Reason: anxiety Last Admin: 03/21/22 16:19 Dose: 25 mg Clonazepam (Clonazepam 1 Mg Tablet) 1 mg PO BID PRN PRN Reason: Anxiety Last Admin: 03/22/22 18:24 Dose: 1 mg Clonidine HCl (Clonidine Hcl 0.2 Mg Tablet) 0.2 mg PO TID PRN; Protocol PRN Reason: Anxiety Last Admin: 03/22/22 18:24 Dose: 0.2 mg Clonidine HCl (Clonidine Hcl 0.2 Mg Tablet) 0.4 mg PO BEDTIME [facility]; Protocol Last Admin: 03/21/22 19:46 Dose: 0.4 mg Fluticasone Propionate (Fluticasone Propionate Nasal 16 Gm [place]) 1 spray NOSTRIL-B BID [facility] Last Admin: 03/22/22 09:01 Dose: 1 spray Folic Acid (Folic Acid 1 Mg Tablet) 1 mg PO DAILY [facility] Last Admin: 03/22/22 09:03 Dose: 1 mg Gabapentin (Gabapentin 600 Mg Tablet) 600 mg PO TID [facility] Last Admin: 03/22/22 15:40 Dose: 600 mg Hydrochlorothiazide (Hydrochlorothiazide 25 Mg Tablet) 25 mg PO DAILY [facility]; Protocol Last Admin: 03/22/22 09:03 Dose: 25 mg Hydroxyzine HCl (Hydroxyzine Hcl 50 Mg Tablet) 50 mg PO TID PRN PRN Reason: anxiety/insomnia Last Admin: 03/22/22 11:02 Dose: 50 mg Lurasidone HCl (Lurasidone Hcl 40 Mg Tablet) 120 mg PO BEDTIME [facility] Last Admin: 03/21/22 19:47 Dose: 120 mg Magnesium Hydroxide (Milk Of Magnesia 30 Ml Oral.Susp) 30 ml PO DAILY PRN PRN Reason: Constipation Metformin HCl (Metformin Hcl 500 Mg Tablet) 500 mg PO BID [facility] Last Admin: 03/22/22 09:02 Dose: 500 mg Methadone HCl (Methadone Hcl 20 Mg/2 Ml Oral.Conc) 180 mg PO DAILY [facility] Last Admin: 03/22/22 09:05 Dose: 180 mg Multivitamins/Vitamin C (Multivitamin Tablet) 1 tab PO DAILY [facility] Last Admin: 03/22/22 09:03 Dose: 1 tab Nicotine Polacrilex (Nicotine Polacrilex Lozenge 2 Mg Lozenge) 2 mg BUCCAL Q2H PRN PRN Reason: Nicotine Cravings Non-Formulary Medication (Lisdexamfetamine [Vyvanse]) 70 mg PO DAILY [facility] Omeprazole (Omeprazole 20 Mg Capsule.Dr) 20 mg PO BID@0630,1630 [facility] Last Admin: 03/22/22 15:40 Dose: 20 mg Pyridoxine HCl (Pyridoxine Hcl (Vitamin B6) 50 Mg Tablet) 50 mg PO DAILY [facility] Last Admin: 03/22/22 09:02 Dose: 50 mg Sertraline HCl (Sertraline Hcl 100 Mg Tablet) 100 mg PO DAILY [facility] Last Admin: 03/22/22 09:02 Dose: 100 mg Trazodone HCl (Trazodone Hcl 50 Mg Tablet) 50 mg PO BEDTIME PRN PRN Reason: Insomnia Last Admin: 03/21/22 19:49 Dose: 50 mg Trimethoprim/Sulfamethoxazole (Sulfamethox/Trimeth 800/160 Tablet) 1 tab PO 0800,2000 [facility] Last Admin: 03/22/22 09:18 Dose: 1 tab Allergies Allergies Allergy/AdvReac Type Severity Reaction Status Date / Time meperidine [From Demerol] Allergy Mild UNKNOWN Verified 08/31/21 06:57 Penicillins Allergy Mild UNKNOWN Verified 08/31/21 06:57 propoxyphene Allergy Mild UNKNOWN Verified 08/31/21 06:57 [From Darvocet-N 50] Sulfa (Sulfonamide Allergy Mild UNKNOWN, Verified 08/31/21 06:57 Antibiotics) HIVES penicillin V Allergy Unknown SWELLING Verified 08/31/21 06:57 Assessment & Plan Assessment & Plan (1) PTSD (post-traumatic stress disorder): Status: Acute Code(s): F43.10 - Post-traumatic stress disorder, unspecified (2) Opioid use disorder, moderate, in early remission: Status: Acute Code(s): F11.21 - Opioid dependence, in remission (3) Bipolar 2 disorder, major depressive episode: Status: Acute Code(s): F31.81 - Bipolar II disorder Plan 03/22/22- Tolerating Sertraline increase Continue plan of care. Patient educated on: therapeutic strategies Informed Consent: understands Reason for contiued inpatient stay Substantial Risk for: harm to self and rapid decompensation Time Spent With Patient Time: Total time managing care of this patient today ___15_ minutes.
[2022-03-22] MEDS: cloNIDine HCL 0.2 MG TABLET 0.4 MG PO (19:22)
[2022-03-22] MEDS: Acetaminophen 325 MG TABLET 650 MG PO (19:23)
[2022-03-22] MEDS: chlorproMAZINE HCl 25 MG TABLET 50 MG PO ×2 (19:23→21:52)
[2022-03-22] MEDS: Lurasidone HCl 40 MG TABLET 120 MG PO (19:23)
--- NOTE | 2022-03-22 23:42 | P.CNID_ITS ---
History of Present Illness Data of Consult Service Date: 03/22/22 Requesting physician: Anali Sanchez Primary Care Provider: Diamond Escoto MD HPI Reason for consult: Hepatitis C She presents for depression to Psychiatry. She reports having Hepatitis C and being treated for it in past. She thinks she achieved SVR. SHe has no abdominal pain or other complaints like dark urine or light colored stool. Review of Systems Review of Systems: Yes all other systems are reviewed and are negative PMFSH Past Medical History Medical History (Updated 03/22/22 @ 23:45 by Joselyn Mathis MD) Hepatitis C antibody positive in blood Hypertension Family History Family history: reviewed and not pertinent Social History Social History Household Members: None Household Members Other:: Live at a program Housing: Homeless Housing Other:: [employer] [employer] Do you presently have visiting nurse or other home services: No Patient Tobacco Use Status: Current everyday Tobacco user Tobacco use type: Smokeless Tobacco Cigarette Packs Per Day: 0.5 Cigarettes Per Day: 10.0 Years Smoked: 12 Smoked in Last 30 Days: Yes e-Cigarette/Vaping Use: Currently Using Patient Interested in Nicotine Replacement: Yes (patch, lozenge, gum) Patient Given Instructions on How to Stop Smoking: Yes Date Education Initiated: 03/15/22 Second Hand Smoke Exposure: No Use of substances other than those prescribed or required for medical reasons: No Substance Use Type: Amphetamines, Crack/Cocaine, Heroin and Opiates Currently Displaying Signs/Symptoms of Drug Intoxication Withdrawal: No Have you been hit, kicked, punched, or otherwise hurt by someone within the past year? If so, by whom?: No Do you feel safe in your current relationship?: No Current Relationship Is there a partner from a previous relationship who is making you feel unsafe now?: No Are you made to feel afraid or neglected: No Advance Directives: No Advance Directives Information Provided: Yes Guardian: No Do you have thoughts of harming others: None Do you have a plan to hurt others: No Plan Recently lost weight without trying: No How much weight loss: Not applicable Eating poorly because of decreased appetite: No Nutrition screen score: 0 Nutrition Risks: No Nutritional Risk Patient : No : No Poor oral hygiene: No service: No Sexual orientation: Straight/Heterosexual Meds Allergies Allergy/AdvReac Type Severity Reaction Status Date / Time meperidine [From Demerol] Allergy Mild UNKNOWN Verified 08/31/21 06:57 Penicillins Allergy Mild UNKNOWN Verified 08/31/21 06:57 propoxyphene Allergy Mild UNKNOWN Verified 08/31/21 06:57 [From Darvocet-N 50] Sulfa (Sulfonamide Allergy Mild UNKNOWN, Verified 08/31/21 06:57 Antibiotics) HIVES penicillin V Allergy Unknown SWELLING Verified 08/31/21 06:57 Active Medications: Current Medications Acetaminophen (Acetaminophen 325 Mg Tablet) 650 mg PO Q6H PRN PRN Reason: Headache/Pain Mild Scale (1-3) Last Admin: 03/22/22 19:23 Dose: 650 mg Al Hydroxide/Mg Hydroxide (Magnesium Hydrox/Alum Hydrox 30 Ml Oral.Susp) 30 ml PO Q6H PRN PRN Reason: Heartburn/Nausea Bupropion HCl (Bupropion Hcl Xl 150 Mg Tab.Er.24h) 150 mg PO DAILY [facility] Last Admin: 03/22/22 09:02 Dose: 150 mg Bupropion HCl (Bupropion Hcl Xl 300 Mg Tab.Er.24h) 300 mg PO DAILY [facility] Last Admin: 03/22/22 09:02 Dose: 300 mg Chlorpromazine HCl (Chlorpromazine Hcl 25 Mg Tablet) 50 mg PO BEDTIME [facility] Last Admin: 03/22/22 19:23 Dose: 50 mg Chlorpromazine HCl (Chlorpromazine Hcl 25 Mg Tablet) 50 mg PO BEDTIME PRN PRN Reason: continued insomnia Last Admin: 03/22/22 21:52 Dose: 50 mg Chlorpromazine HCl (Chlorpromazine Hcl 25 Mg Tablet) 25 mg PO BID PRN PRN Reason: anxiety Last Admin: 03/21/22 16:19 Dose: 25 mg Clonazepam (Clonazepam 1 Mg Tablet) 1 mg PO BID PRN PRN Reason: Anxiety Last Admin: 03/22/22 18:24 Dose: 1 mg Clonidine HCl (Clonidine Hcl 0.2 Mg Tablet) 0.2 mg PO TID PRN; Protocol PRN Reason: Anxiety Last Admin: 03/22/22 18:24 Dose: 0.2 mg Clonidine HCl (Clonidine Hcl 0.2 Mg Tablet) 0.4 mg PO BEDTIME [facility]ELIE; Protocol Last Admin: 03/22/22 19:22 Dose: 0.4 mg Fluticasone Propionate (Fluticasone Propionate Nasal 16 Gm [place]) 1 spray NOSTRIL-B BID [facility] Last Admin: 03/22/22 22:00 Dose: Not Given Folic Acid (Folic Acid 1 Mg Tablet) 1 mg PO DAILY [facility] Last Admin: 03/22/22 09:03 Dose: 1 mg Gabapentin (Gabapentin 600 Mg Tablet) 600 mg PO TID [facility] Last Admin: 03/22/22 19:23 Dose: 600 mg Hydrochlorothiazide (Hydrochlorothiazide 25 Mg Tablet) 25 mg PO DAILY [facility]; Protocol Last Admin: 03/22/22 09:03 Dose: 25 mg Hydroxyzine HCl (Hydroxyzine Hcl 50 Mg Tablet) 50 mg PO TID PRN PRN Reason: anxiety/insomnia Last Admin: 03/22/22 19:27 Dose: 50 mg Lurasidone HCl (Lurasidone Hcl 40 Mg Tablet) 120 mg PO BEDTIME [facility] Last Admin: 03/22/22 19:23 Dose: 120 mg Magnesium Hydroxide (Milk Of Magnesia 30 Ml Oral.Susp) 30 ml PO DAILY PRN PRN Reason: Constipation Metformin HCl (Metformin Hcl 500 Mg Tablet) 500 mg PO BID [facility] Last Admin: 03/22/22 19:22 Dose: 500 mg Methadone HCl (Methadone Hcl 20 Mg/2 Ml Oral.Conc) 180 mg PO DAILY [facility] Last Admin: 03/22/22 09:05 Dose: 180 mg Multivitamins/Vitamin C (Multivitamin Tablet) 1 tab PO DAILY [facility] Last Admin: 03/22/22 09:03 Dose: 1 tab Nicotine Polacrilex (Nicotine Polacrilex Lozenge 2 Mg Lozenge) 2 mg BUCCAL Q2H PRN PRN Reason: Nicotine Cravings Non-Formulary Medication (Lisdexamfetamine [Vyvanse]) 70 mg PO DAILY [facility] Omeprazole (Omeprazole 20 Mg Capsule.Dr) 20 mg PO BID@0630,1630 [facility] Last Admin: 03/22/22 15:40 Dose: 20 mg Pyridoxine HCl (Pyridoxine Hcl (Vitamin B6) 50 Mg Tablet) 50 mg PO DAILY [facility] Last Admin: 03/22/22 09:02 Dose: 50 mg Sertraline HCl (Sertraline Hcl 100 Mg Tablet) 100 mg PO DAILY [facility] Last Admin: 03/22/22 09:02 Dose: 100 mg Trazodone HCl (Trazodone Hcl 50 Mg Tablet) 50 mg PO BEDTIME PRN PRN Reason: Insomnia Last Admin: 03/21/22 19:49 Dose: 50 mg Trimethoprim/Sulfamethoxazole (Sulfamethox/Trimeth 800/160 Tablet) 1 tab PO 0800,1999 [facility] Last Admin: 03/22/22 21:57 Dose: 1 tab Home Medications Medication Instructions Recorded Confirmed Last Taken Type methadone 10 mg/5 mL oral solution 180 mg PO DAILY 04/15/21 03/14/22 03/12/22 History atenolol 25 mg tablet 25 mg PO DAILY 08/23/21 03/13/22 Unknown History bupropion HCl 150 mg 24 hr tablet, 150 mg PO QAM 08/23/21 03/13/22 Unknown History extended release bupropion HCl 300 mg 24 hr tablet, 300 mg PO QAM 08/23/21 03/13/22 Unknown History extended release clonidine HCl 0.1 mg tablet 0.2 mg PO TID PRN Anxiety 08/23/21 03/13/22 Unknown History folic acid 1 mg tablet 1 mg PO DAILY 08/23/21 03/13/22 Unknown History hydroxyzine HCl 25 mg tablet 25 - 50 mg PO BID PRN Anxiety 08/23/21 03/13/22 Unknown History lisdexamfetamine 70 mg capsule 70 mg PO DAILY@1200 08/23/21 03/13/22 Unknown History (Vyvanse) multivitamin 1 tab PO DAILY 08/23/21 03/13/22 Unknown History omeprazole 20 mg capsule,delayed 20 mg PO BID 08/23/21 03/13/22 Unknown History release clonidine HCl 0.2 mg tablet 0.4 mg PO BEDTIME 03/13/22 03/13/22 Unknown History fluticasone propionate 50 1 spray intranasal BID 03/13/22 03/13/22 Unknown History mcg/actuation nasal spray,suspension hydrochlorothiazide 12.5 mg tablet 12.5 mg PO DAILY 03/13/22 03/13/22 Unknown History metformin 500 mg tablet 500 mg PO BID 03/13/22 03/13/22 Unknown History nicotine (polacrilex) 2 mg buccal 2 mg buccal Q2H PRN Nicotine 03/13/22 03/13/22 Unknown History lozenge Cravings pyridoxine (vitamin B6) 50 mg 50 mg PO DAILY 03/13/22 03/13/22 Unknown History tablet Physical Exam Vital Signs: Vital Signs: Last Vital Signs Temp 97.3 F 03/22/22 18:00 Pulse 82 03/22/22 18:00 Resp 16 03/22/22 06:00 BP 133/75 03/22/22 18:00 Pulse Ox 95 03/22/22 18:00 O2 Del Method 03/22/22 18:00 BMI result Body Mass Index 44.4 Const: General: cooperative HEENT: Head: Yes normal to inspection Face and sinus: Yes normal facial exam Mouth: Normal oral and palatal mucosa present Teeth and gingiva: dentition normal Eyes: General: appearance normal, both eyes and all related structures Pupils: Equal, round and reactive pupils present Resp: Effort & Inspection: normal respiratory effort Cardio: Rate: regular rate Rhythm: regular rhythm GI: Palpation (GI): Soft to palpation and nontender : General: Yes no CVA tenderness Back/Spine/Pelvis: Back: no CVA tenderness Skin: General skin exam: no rashes or lesions noted Neuro: General: moves all extremities Cranial nerves: Yes Equal, round and reactive pupils present Extrem: General: Yes normal to inspection Psych: Appearance: grossly normal Results Labs 03/13/22 20:49 03/19/22 07:58 Assessment and Plan (1) Hepatitis C antibody positive in blood: Status: Acute She will have Hepatitis C antibody positive even after treatment as doesnt indicate active disease just prior exposure Plan Check Hepatitis C viral load and if undetectable dont have to treat Check fibrosis score check for cirrhosis also since patient complains of leg and hand swelling. I will follow and treat if needed. Time Spent With Patient Time: Total time managing care of this patient today ____ minutes.
[2022-03-23 07:00] VITALS: BMI 52.5
[2022-03-23 09:05] VITALS: BP 111/69; PULSE 113; RESP 16; TEMP 36.6; O2SAT 93
[2022-03-23] MEDS: Pyridoxine HCl (Vitamin B6) 50 MG TABLET PO (09:15)
[2022-03-23] MEDS: Omeprazole 20 MG CAPSULE.DR PO ×2 (09:15→16:21)
[2022-03-23] MEDS: buPROPion HCl XL 150 MG TAB.ER.24H PO (09:15)
[2022-03-23] MEDS: Sertraline HCL 100 MG TABLET PO (09:15)
[2022-03-23] MEDS: Gabapentin 600 MG TABLET PO ×3 (09:15→20:47)
[2022-03-23] MEDS: Folic Acid 1 MG TABLET PO (09:15)
[2022-03-23] MEDS: hydroCHLOROthiazide 25 MG TABLET PO (09:15)
[2022-03-23] MEDS: metFORMIN HCl 500 MG TABLET PO ×2 (09:15→20:47)
[2022-03-23] MEDS: Multivitamin TABLET 1 TAB PO (09:15)
[2022-03-23] MEDS: buPROPion HCl XL 300 MG TAB.ER.24H PO (09:15)
[2022-03-23] MEDS: methADONE HCl 20 MG/2 ML ORAL.CONC 180 MG PO (09:15)
[2022-03-23] MEDS: Sulfamethox/Trimeth 800/160 TABLET 1 TAB PO ×2 (09:30→20:46)
[2022-03-23] MEDS: Acetaminophen 325 MG TABLET 650 MG PO (11:46)
[2022-03-23] MEDS: cloNIDine HCL 0.2 MG TABLET PO ×2 (11:47→14:22)
[2022-03-23] MEDS: hydrOXYzine HCL 50 MG TABLET PO ×3 (11:47→20:47)
[2022-03-23] MEDS: clonazePAM 1 MG TABLET PO ×2 (11:47→18:08)
--- NOTE | 2022-03-23 14:13 | HO.PM.IMCN ---
History of Present Illness Data of Consult Service Date: 03/23/22 Primary Care Provider: Diamond Escoto MD [facility] Reason for consult: Bilateral edema, DM Pt is a 32-year-old female with a PMH significant for PTSD, mood disorder, opioid use disorder in remission on methadone, and recent diagnosis of [id number] DM started on metformin who is seen for hospitalist consult concerning bilateral extremity edema and DM management. Pt states she has noticed swelling in her hands, legs, and feet the past two months with left worse than right. Has pain in lower left leg and foot when ambulating. She has noticed no significant weight gain during this period. Saw her PCP for symptoms and started on hydrochlorothiazide about a month ago. Pt notes swelling has gone down some while here. No lightheadedness, dizziness. Pt also recently diagnosed with DM three weeks ago and started on metformin. Denies abdominal pain, N/V. Pt has had chronic constipation with only one bowel movement per week for the last 2-3 years. Used to take Doculax, but hasn't recently. Describes movements as mostly liquid when they come out. Patient denies lightheadedness, dizziness. No chest pain/pressure, palpitations. Of note, pt states she has been severely depressed lately and spending the vast majority of her day in her room laying in bed. Review of Systems Review of Systems: Bilateral swelling in hands and legs Lower left-leg pain with abulation Chronic constipation No lightheadedness, dizziness Denies nausea, vomiting Chest pain/pressure, palpitations Yes all other systems are reviewed and are negative [facility] Medical History Hepatitis C antibody positive in blood Hypertension Social History Household Members: None Household Members Other:: Live at a program Housing: Homeless Housing Other:: [employer] Do you presently have visiting nurse or other home services: No Patient Tobacco Use Status: Current everyday Tobacco user Tobacco use type: Smokeless Tobacco Cigarette Packs Per Day: 0.5 Cigarettes Per Day: 10.0 Years Smoked: 12 Smoked in Last 30 Days: Yes e-Cigarette/Vaping Use: Currently Using Patient Interested in Nicotine Replacement: Yes (patch, lozenge, gum) Patient Given Instructions on How to Stop Smoking: Yes Date Education Initiated: 03/15/22 Second Hand Smoke Exposure: No Use of substances other than those prescribed or required for medical reasons: No Substance Use Type: Amphetamines, Crack/Cocaine, Heroin and Opiates Currently Displaying Signs/Symptoms of Drug Intoxication Withdrawal: No Have you been hit, kicked, punched, or otherwise hurt by someone within the past year? If so, by whom?: No Do you feel safe in your current relationship?: No Current Relationship Is there a partner from a previous relationship who is making you feel unsafe now?: No Are you made to feel afraid or neglected: No Advance Directives: No Advance Directives Information Provided: Yes Guardian: No Do you have thoughts of harming others: None Do you have a plan to hurt others: No Plan Recently lost weight without trying: No How much weight loss: Not applicable Eating poorly because of decreased appetite: No Nutrition screen score: 0 Nutrition Risks: No Nutritional Risk Patient : No : No Poor oral hygiene: No service: No Sexual orientation: Straight/Heterosexual Meds Allergies Allergy/AdvReac Type Severity Reaction Status Date / Time meperidine [From Demerol] Allergy Mild UNKNOWN Verified 08/31/21 06:57 Penicillins Allergy Mild UNKNOWN Verified 08/31/21 06:57 propoxyphene Allergy Mild UNKNOWN Verified 08/31/21 06:57 [From Darvocet-N 50] Sulfa (Sulfonamide Allergy Mild UNKNOWN, Verified 08/31/21 06:57 Antibiotics) HIVES penicillin V Allergy Unknown SWELLING Verified 08/31/21 06:57 Active Medications: Current Medications Acetaminophen (Acetaminophen 325 Mg Tablet) 650 mg PO Q6H PRN PRN Reason: Headache/Pain Mild Scale (1-3) Last Admin: 03/23/22 11:46 Dose: 650 mg Al Hydroxide/Mg Hydroxide (Magnesium Hydrox/Alum Hydrox 30 Ml Oral.Susp) 30 ml PO Q6H PRN PRN Reason: Heartburn/Nausea Bupropion HCl (Bupropion Hcl Xl 150 Mg Tab.Er.24h) 150 mg PO DAILY [facility] Last Admin: 03/23/22 09:15 Dose: 150 mg Bupropion HCl (Bupropion Hcl Xl 300 Mg Tab.Er.24h) 300 mg PO DAILY [facility] Last Admin: 03/23/22 09:15 Dose: 300 mg Chlorpromazine HCl (Chlorpromazine Hcl 25 Mg Tablet) 50 mg PO BEDTIME [facility] Last Admin: 03/22/22 19:23 Dose: 50 mg Chlorpromazine HCl (Chlorpromazine Hcl 25 Mg Tablet) 50 mg PO BEDTIME PRN PRN Reason: continued insomnia Last Admin: 03/22/22 21:52 Dose: 50 mg Chlorpromazine HCl (Chlorpromazine Hcl 25 Mg Tablet) 25 mg PO BID PRN PRN Reason: anxiety Last Admin: 03/21/22 16:19 Dose: 25 mg Clonazepam (Clonazepam 1 Mg Tablet) 1 mg PO BID PRN PRN Reason: Anxiety Last Admin: 03/23/22 11:47 Dose: 1 mg Clonidine HCl (Clonidine Hcl 0.2 Mg Tablet) 0.2 mg PO TID PRN; Protocol PRN Reason: Anxiety Last Admin: 03/23/22 11:47 Dose: 0.2 mg Clonidine HCl (Clonidine Hcl 0.2 Mg Tablet) 0.4 mg PO BEDTIME AMELIE; Protocol Last Admin: 03/22/22 19:22 Dose: 0.4 mg Ferrous Sulfate (Ferrous Sulfate 324 Mg Tablet.Dr) 324 mg PO DAILY [facility] Fluticasone Propionate (Fluticasone Propionate Nasal 16 Gm [place]) 1 spray NOSTRIL-B BID [facility] Last Admin: 03/23/22 13:07 Dose: Not Given Folic Acid (Folic Acid 1 Mg Tablet) 1 mg PO DAILY [facility] Last Admin: 03/23/22 09:15 Dose: 1 mg Gabapentin (Gabapentin 600 Mg Tablet) 600 mg PO TID [facility] Last Admin: 03/23/22 09:15 Dose: 600 mg Hydrochlorothiazide (Hydrochlorothiazide 25 Mg Tablet) 25 mg PO DAILY [facility]; Protocol Last Admin: 03/23/22 09:15 Dose: 25 mg Hydroxyzine HCl (Hydroxyzine Hcl 50 Mg Tablet) 50 mg PO TID PRN PRN Reason: anxiety/insomnia Last Admin: 03/23/22 11:47 Dose: 50 mg Lurasidone HCl (Lurasidone Hcl 40 Mg Tablet) 120 mg PO BEDTIME [facility] Last Admin: 03/22/22 19:23 Dose: 120 mg Magnesium Hydroxide (Milk Of Magnesia 30 Ml Oral.Susp) 30 ml PO DAILY PRN PRN Reason: Constipation Metformin HCl (Metformin Hcl 500 Mg Tablet) 500 mg PO BID [facility] Last Admin: 03/23/22 09:15 Dose: 500 mg Methadone HCl (Methadone Hcl 20 Mg/2 Ml Oral.Conc) 180 mg PO DAILY [facility] Last Admin: 03/23/22 09:15 Dose: 180 mg Multivitamins/Vitamin C (Multivitamin Tablet) 1 tab PO DAILY [facility] Last Admin: 03/23/22 09:15 Dose: 1 tab Nicotine Polacrilex (Nicotine Polacrilex Lozenge 2 Mg Lozenge) 2 mg BUCCAL Q2H PRN PRN Reason: Nicotine Cravings Non-Formulary Medication (Lisdexamfetamine [Vyvanse]) 70 mg PO DAILY [facility] Omeprazole (Omeprazole 20 Mg Capsule.Dr) 20 mg PO BID@0630,1630 [facility] Last Admin: 03/23/22 09:15 Dose: 20 mg Pyridoxine HCl (Pyridoxine Hcl (Vitamin B6) 50 Mg Tablet) 50 mg PO DAILY [facility] Last Admin: 03/23/22 09:15 Dose: 50 mg Sertraline HCl (Sertraline Hcl 25 Mg Tablet) 125 mg PO DAILY [facility] Trazodone HCl (Trazodone Hcl 50 Mg Tablet) 50 mg PO BEDTIME PRN PRN Reason: Insomnia Last Admin: 03/21/22 19:49 Dose: 50 mg Trimethoprim/Sulfamethoxazole (Sulfamethox/Trimeth 800/160 Tablet) 1 tab PO 0800,1999 [facility] Last Admin: 03/23/22 09:30 Dose: 1 tab Home Medications Medication Instructions Recorded Confirmed Last Taken Type methadone 10 mg/5 mL oral solution 180 mg PO DAILY 04/15/21 03/14/22 03/12/22 History atenolol 25 mg tablet 25 mg PO DAILY 08/23/21 03/13/22 Unknown History bupropion HCl 150 mg 24 hr tablet, 150 mg PO [facility] 08/23/21 03/13/22 Unknown History extended release bupropion HCl 300 mg 24 hr tablet, 300 mg PO QAM 08/23/21 03/13/22 Unknown History extended release clonidine HCl 0.1 mg tablet 0.2 mg PO TID PRN Anxiety 08/23/21 03/13/22 Unknown History folic acid 1 mg tablet 1 mg PO DAILY 08/23/21 03/13/22 Unknown History hydroxyzine HCl 25 mg tablet 25 - 50 mg PO BID PRN Anxiety 08/23/21 03/13/22 Unknown History lisdexamfetamine 70 mg capsule 70 mg PO DAILY@1200 08/23/21 03/13/22 Unknown History (Vyvanse) multivitamin 1 tab PO DAILY 08/23/21 03/13/22 Unknown History omeprazole 20 mg capsule,delayed 20 mg PO BID 08/23/21 03/13/22 Unknown History release clonidine HCl 0.2 mg tablet 0.4 mg PO BEDTIME 03/13/22 03/13/22 Unknown History fluticasone propionate 50 1 spray intranasal BID 03/13/22 03/13/22 Unknown History mcg/actuation nasal spray,suspension hydrochlorothiazide 12.5 mg tablet 12.5 mg PO DAILY 03/13/22 03/13/22 Unknown History metformin 500 mg tablet 500 mg PO BID 03/13/22 03/13/22 Unknown History nicotine (polacrilex) 2 mg buccal 2 mg buccal Q2H PRN Nicotine 03/13/22 03/13/22 Unknown History lozenge Cravings pyridoxine (vitamin B6) 50 mg 50 mg PO DAILY 03/13/22 03/13/22 Unknown History tablet Physical Exam Vital Signs and Narrative: Vital Signs: Last Vital Signs Temp 98 F 03/23/22 09:05 Pulse 113 H 03/23/22 09:05 Resp 16 03/23/22 09:05 BP 111/69 03/23/22 09:05 Pulse Ox 93 03/23/22 09:05 O2 Del Method 03/23/22 09:05 BMI result Body Mass Index 52.5 General: AOx3, no acute distress Resp: CTA bilaterally CVS: S1, S2, RRR GI: +BS, NT, no distention Skin: No rash Neuro: Cranial nerves II-XII grossly intact. Motor grossly intact Extremities: Trace lower extremity pitting edema bilaterally Psych: Appropriate affect Results Labs 03/13/22 20:49 03/19/22 07:58 Assessment and Plan (1) Lower leg edema: Status: Acute (2) Diabetes: Status: Acute (3) Morbid obesity: Status: Acute Plan Pt is a 32-year-old female with a PMH significant for PTSD, mood disorder, opioid use disorder in remission on methadone, and recent diagnosis of [id number] DM started on metformin who is seen for hospitalist consult concerning bilateral extremity edema and DM management. Of note, pt states she has been severely depressed lately and spending the vast majority of her day in her room laying in bed. Lower leg edema and left leg pain Likely secondary to venous stasis, being mostly bed-bound Continue hydrochlorothiazide 12.5mg daily Bilateral knee-high compression stockings Encourage exercise, walking, weight loss, elevating feet while in bed Follow up outpatient with PCP DM Continue metformin 500mg bid Encourage exercise, walking, weight loss Diabetic diet F/U outpatient with PCP Constipation High fiber diet Metamucil 3.5g daily Encourage walking, exercise, weight loss Morbid obesity Pt with BMI of 52.6 Encourage walking, exercise, weight loss Thank you for allowing us to participate in the care of this patient. Signing off at this time. Please contact us again if there are any questions or additional concerns. Time Spent With Patient Time: Total time managing care of this patient today ____ minutes.
[2022-03-23] MEDS: chlorproMAZINE HCl 25 MG TABLET PO (16:21)
--- NOTE | 2022-03-23 16:59 | HO.PSYCHPN ---
Subjective Subjective Date of Service: 03/23/22 Reason For Visit: SI Subjective Notes: Conditional Voluntary Healthcare Proxy: No Guardianship: No Medical Problems Affecting Mental Status: No Interim History: Remains with significant sx of anergy and depression. Seen by infectious disease, consult appreciated, who suggest hepatitis C viral load and fibrosis testing to rule out cirrhosis. Seen by hospitalist, consult appreciated, who suggests weight loss, exercise, compression stockings, increase in fiber to manage constipation Discussed ongoing titration of Sertraline Pt interested in iron supplement for anemia as well. States she is feeling like things are coming together for her medically, she is getting answers to issues which overall if helpful to manage depressive sx. Medication Compliance: Yes Side effects from medications: No Attending Groups: Intermittent Review of Systems Acute medical concerns: No Medical Review of Systems: unchanged Mental Status Exam Mental Status Exam Patient Appearance: Appropriate Patient Orientation: Person, Place, Time and Situation Level of Consciousness: Alert Patient Behavior: Appropriate, Talkative, Cooperative and Good Eye Contact Mood Description: Constricted and Depressed Affect Description: Constricted and Flat Patient Cognition Impaired: No Ability to Follow Directions: Good Speech Pattern: Spontaneous Speech Memory Description: Intact Hallucinations: None Delusions: Not Present Thought Process: Goal Oriented Thought Content: positive for Goal Oriented and positive for Suicidal Ideation (passive) Depressive Symptoms: Increased Anxiety, Hopelessness, Isolating-Friends/Family, Increased Fatigue, Thoughts of /Suicide (passive), Loss of Energy and Difficulty Concentrating Judgement: Fair Diagnostics Vital Signs (24Hr): Vital Signs - 24 hr 03/22/22 18:00 03/23/22 09:05 Temperature 97.3 F 98 F Pulse Rate 82 113 H Respiratory Rate 16 Blood Pressure 133/75 111/69 Pulse Oximetry 95 93 Oxygen Delivery Method Room Air Room Air BMI result Body Mass Index 52.5 Labs 03/13/22 20:49 03/19/22 07:58 Medications Medications Current Medications Acetaminophen (Acetaminophen 325 Mg Tablet) 650 mg PO Q6H PRN PRN Reason: Headache/Pain Mild Scale (1-3) Last Admin: 03/23/22 11:46 Dose: 650 mg Al Hydroxide/Mg Hydroxide (Magnesium Hydrox/Alum Hydrox 30 Ml Oral.Susp) 30 ml PO Q6H PRN PRN Reason: Heartburn/Nausea Bupropion HCl (Bupropion Hcl Xl 150 Mg Tab.Er.24h) 150 mg PO DAILY [facility] Last Admin: 03/23/22 09:15 Dose: 150 mg Bupropion HCl (Bupropion Hcl Xl 300 Mg Tab.Er.24h) 300 mg PO DAILY [facility] Last Admin: 03/23/22 09:15 Dose: 300 mg Chlorpromazine HCl (Chlorpromazine Hcl 25 Mg Tablet) 50 mg PO BEDTIME [facility] Last Admin: 03/22/22 19:23 Dose: 50 mg Chlorpromazine HCl (Chlorpromazine Hcl 25 Mg Tablet) 50 mg PO BEDTIME PRN PRN Reason: continued insomnia Last Admin: 03/22/22 21:52 Dose: 50 mg Chlorpromazine HCl (Chlorpromazine Hcl 25 Mg Tablet) 25 mg PO BID PRN PRN Reason: anxiety Last Admin: 03/23/22 16:21 Dose: 25 mg Clonazepam (Clonazepam 1 Mg Tablet) 1 mg PO BID PRN PRN Reason: Anxiety Clonidine HCl (Clonidine Hcl 0.2 Mg Tablet) 0.2 mg PO TID PRN; Protocol PRN Reason: Anxiety Last Admin: 03/23/22 14:22 Dose: 0.2 mg Clonidine HCl (Clonidine Hcl 0.2 Mg Tablet) 0.4 mg PO BEDTIME [facility]; Protocol Last Admin: 03/22/22 19:22 Dose: 0.4 mg Ferrous Sulfate (Ferrous Sulfate 324 Mg Tablet.Dr) 324 mg PO DAILY [facility] Fluticasone Propionate (Fluticasone Propionate Nasal 16 Gm [place]) 1 spray NOSTRIL-B BID [facility] Last Admin: 03/23/22 13:07 Dose: Not Given Folic Acid (Folic Acid 1 Mg Tablet) 1 mg PO DAILY [facility] Last Admin: 03/23/22 09:15 Dose: 1 mg Gabapentin (Gabapentin 600 Mg Tablet) 600 mg PO TID [facility] Last Admin: 03/23/22 14:22 Dose: 600 mg Hydrochlorothiazide (Hydrochlorothiazide 25 Mg Tablet) 25 mg PO DAILY [facility]; Protocol Last Admin: 03/23/22 09:15 Dose: 25 mg Hydroxyzine HCl (Hydroxyzine Hcl 50 Mg Tablet) 50 mg PO TID PRN PRN Reason: anxiety/insomnia Last Admin: 03/23/22 14:25 Dose: 50 mg Lurasidone HCl (Lurasidone Hcl 40 Mg Tablet) 120 mg PO BEDTIME [facility] Last Admin: 03/22/22 19:23 Dose: 120 mg Magnesium Hydroxide (Milk Of Magnesia 30 Ml Oral.Susp) 30 ml PO DAILY PRN PRN Reason: Constipation Metformin HCl (Metformin Hcl 500 Mg Tablet) 500 mg PO BID [facility] Last Admin: 03/23/22 09:15 Dose: 500 mg Methadone HCl (Methadone Hcl 20 Mg/2 Ml Oral.Conc) 180 mg PO DAILY [facility] Last Admin: 03/23/22 09:15 Dose: 180 mg Multivitamins/Vitamin C (Multivitamin Tablet) 1 tab PO DAILY [facility] Last Admin: 03/23/22 09:15 Dose: 1 tab Nicotine Polacrilex (Nicotine Polacrilex Lozenge 2 Mg Lozenge) 2 mg BUCCAL Q2H PRN PRN Reason: Nicotine Cravings Non-Formulary Medication (Lisdexamfetamine [Vyvanse]) 70 mg PO DAILY [facility] Omeprazole (Omeprazole 20 Mg Capsule.Dr) 20 mg PO BID@0630,1630 [facility] Last Admin: 03/23/22 16:21 Dose: 20 mg Psyllium Hydrophilic Mucilloid (Psyllium Seed 3.4 Gm Powd.Pack) 3.4 gm PO DAILY [facility] Last Admin: 03/23/22 14:31 Dose: Not Given Pyridoxine HCl (Pyridoxine Hcl (Vitamin B6) 50 Mg Tablet) 50 mg PO DAILY [facility] Last Admin: 03/23/22 09:15 Dose: 50 mg Sertraline HCl (Sertraline Hcl 25 Mg Tablet) 125 mg PO DAILY [facility] Trazodone HCl (Trazodone Hcl 50 Mg Tablet) 50 mg PO BEDTIME PRN PRN Reason: Insomnia Last Admin: 03/21/22 19:49 Dose: 50 mg Trimethoprim/Sulfamethoxazole (Sulfamethox/Trimeth 800/160 Tablet) 1 tab PO 0800,1999 [facility] Last Admin: 03/23/22 09:30 Dose: 1 tab Allergies Allergies Allergy/AdvReac Type Severity Reaction Status Date / Time meperidine [From Demerol] Allergy Mild UNKNOWN Verified 08/31/21 06:57 Penicillins Allergy Mild UNKNOWN Verified 08/31/21 06:57 propoxyphene Allergy Mild UNKNOWN Verified 08/31/21 06:57 [From Darvocet-N 50] Sulfa (Sulfonamide Allergy Mild UNKNOWN, Verified 08/31/21 06:57 Antibiotics) HIVES penicillin V Allergy Unknown SWELLING Verified 08/31/21 06:57 Assessment & Plan Assessment & Plan (1) PTSD (post-traumatic stress disorder): Status: Acute Code(s): F43.10 - Post-traumatic stress disorder, unspecified (2) Opioid use disorder, moderate, in early remission: Status: Acute Code(s): F11.21 - Opioid dependence, in remission (3) Bipolar 2 disorder, major depressive episode: Status: Acute Code(s): F31.81 - Bipolar II disorder Plan Increase Sertraline to 125 mg daily Ferrous sulfate 325 mg daily Patient educated on: medication risk/benefits and therapeutic strategies Informed Consent: understands Reason for contiued inpatient stay Substantial Risk for: harm to self and med/psych decompensation Time Spent With Patient Time: Total time managing care of this patient today ___20_ minutes.
[2022-03-23 18:00] VITALS: BP 116/66; PULSE 96; TEMP 36.4; O2SAT 96
[2022-03-23] MEDS: Lurasidone HCl 40 MG TABLET 120 MG PO (20:46)
[2022-03-23] MEDS: chlorproMAZINE HCl 25 MG TABLET 50 MG PO (20:47)
[2022-03-23] MEDS: cloNIDine HCL 0.2 MG TABLET 0.4 MG PO (20:47)
--- NOTE | 2022-03-24 | ECG_ITS ---
Test Reason : tachycardia Blood Pressure : / mmHG Vent. Rate : 103 BPM Atrial Rate : 103 BPM P-R Int : 146 ms QRS Dur : 120 ms QT Int : 368 ms P-R-T Axes : 030 076 049 degrees QTc Int : 482 ms Sinus tachycardia Cannot rule out Inferior infarct (cited on or before 21-MAR-2022) Abnormal ECG When compared with ECG of 21-MAR-2022 09:37, No significant changes seen Referred By: Anali Sanchez Electronically Signed By:DEIRDRE TIWARI
[2022-03-24 06:00] VITALS: BP 128/72; PULSE 106; RESP 18
[2022-03-24] MEDS: Acetaminophen 325 MG TABLET 650 MG PO ×2 (08:55→19:22)
[2022-03-24] MEDS: Sertraline HCL 25 MG TABLET 125 MG PO (08:55)
[2022-03-24] MEDS: Multivitamin TABLET 1 TAB PO (08:55)
[2022-03-24] MEDS: hydroCHLOROthiazide 25 MG TABLET PO (08:55)
[2022-03-24] MEDS: Gabapentin 600 MG TABLET PO ×3 (08:55→20:18)
[2022-03-24] MEDS: metFORMIN HCl 500 MG TABLET PO ×2 (08:55→20:17)
[2022-03-24] MEDS: Omeprazole 20 MG CAPSULE.DR PO ×2 (08:55→15:53)
[2022-03-24] MEDS: Pyridoxine HCl (Vitamin B6) 50 MG TABLET PO (08:55)
[2022-03-24] MEDS: buPROPion HCl XL 300 MG TAB.ER.24H PO (08:55)
[2022-03-24] MEDS: Ferrous Sulfate 324 MG TABLET.DR PO (08:55)
[2022-03-24] MEDS: buPROPion HCl XL 150 MG TAB.ER.24H PO (08:55)
[2022-03-24] MEDS: Folic Acid 1 MG TABLET PO (08:55)
[2022-03-24] MEDS: cloNIDine HCL 0.2 MG TABLET PO ×2 (08:56→19:22)
[2022-03-24] MEDS: clonazePAM 1 MG TABLET PO ×2 (08:56→19:23)
[2022-03-24] MEDS: methADONE HCl 20 MG/2 ML ORAL.CONC 180 MG PO (08:59)
[2022-03-24] MEDS: Sulfamethox/Trimeth 800/160 TABLET 1 TAB PO ×2 (09:09→20:23)
[2022-03-24] MEDS: chlorproMAZINE HCl 25 MG TABLET PO (13:56)
[2022-03-24] MEDS: hydrOXYzine HCL 50 MG TABLET PO ×2 (13:56→19:22)
--- NOTE | 2022-03-24 14:54 | HO.PSYCHPN ---
Subjective Subjective Date of Service: 03/24/22 Reason For Visit: SI Subjective Notes: Conditional Voluntary Interim History: Pt reports her father and assistant tennis coach will visit this weekend. Continues to experience depression, SI Medical eval completed with health recommendations for pt Awaits word from programs she has applied for Medication Compliance: Yes Side effects from medications: No Attending Groups: Intermittent Review of Systems Acute medical concerns: No Medical Review of Systems: unchanged Mental Status Exam Mental Status Exam Patient Appearance: Appropriate Patient Orientation: Person, Place, Time and Situation Level of Consciousness: Alert Patient Behavior: Appropriate, Talkative, Cooperative and Good Eye Contact Mood Description: Constricted and Depressed Affect Description: Constricted and Flat Patient Cognition Impaired: No Ability to Follow Directions: Good Speech Pattern: Spontaneous Speech Memory Description: Intact Hallucinations: None Delusions: Not Present Thought Process: Goal Oriented Thought Content: positive for Goal Oriented and positive for Suicidal Ideation (passive) Depressive Symptoms: Increased Anxiety, Hopelessness, Isolating-Friends/Family, Increased Fatigue, Thoughts of /Suicide (passive), Loss of Energy and Difficulty Concentrating Judgement: Fair Diagnostics Vital Signs (24Hr): Vital Signs - 24 hr 03/23/22 18:00 03/24/22 06:00 Temperature 97.6 F Pulse Rate 96 106 H Respiratory Rate 18 Blood Pressure 116/66 128/72 Pulse Oximetry 96 Oxygen Delivery Method Room Air BMI result Body Mass Index 52.5 Labs 03/13/22 20:49 03/19/22 07:58 Medications Medications Current Medications Acetaminophen (Acetaminophen 325 Mg Tablet) 650 mg PO Q6H PRN PRN Reason: Headache/Pain Mild Scale (1-3) Last Admin: 03/24/22 08:55 Dose: 650 mg Al Hydroxide/Mg Hydroxide (Magnesium Hydrox/Alum Hydrox 30 Ml Oral.Susp) 30 ml PO Q6H PRN PRN Reason: Heartburn/Nausea Bupropion HCl (Bupropion Hcl Xl 150 Mg Tab.Er.24h) 150 mg PO DAILY [facility] Last Admin: 03/24/22 08:55 Dose: 150 mg Bupropion HCl (Bupropion Hcl Xl 300 Mg Tab.Er.24h) 300 mg PO DAILY [facility] Last Admin: 03/24/22 08:55 Dose: 300 mg Chlorpromazine HCl (Chlorpromazine Hcl 25 Mg Tablet) 50 mg PO BEDTIME [facility] Last Admin: 03/23/22 20:47 Dose: 50 mg Chlorpromazine HCl (Chlorpromazine Hcl 25 Mg Tablet) 50 mg PO BEDTIME PRN PRN Reason: continued insomnia Last Admin: 03/22/22 21:52 Dose: 50 mg Chlorpromazine HCl (Chlorpromazine Hcl 25 Mg Tablet) 25 mg PO BID PRN PRN Reason: anxiety Last Admin: 03/24/22 13:56 Dose: 25 mg Clonazepam (Clonazepam 1 Mg Tablet) 1 mg PO BID PRN PRN Reason: Anxiety Last Admin: 03/24/22 08:56 Dose: 1 mg Clonidine HCl (Clonidine Hcl 0.2 Mg Tablet) 0.2 mg PO TID PRN; Protocol PRN Reason: Anxiety Last Admin: 03/24/22 08:56 Dose: 0.2 mg Clonidine HCl (Clonidine Hcl 0.2 Mg Tablet) 0.4 mg PO BEDTIME [facility]; Protocol Last Admin: 03/23/22 20:47 Dose: 0.4 mg Ferrous Sulfate (Ferrous Sulfate 324 Mg Tablet.Dr) 324 mg PO DAILY [facility] Last Admin: 03/24/22 08:55 Dose: 324 mg Fluticasone Propionate (Fluticasone Propionate Nasal 16 Gm [place]) 1 spray NOSTRIL-B BID [facility] Last Admin: 03/24/22 09:01 Dose: Not Given Folic Acid (Folic Acid 1 Mg Tablet) 1 mg PO DAILY [facility] Last Admin: 03/24/22 08:55 Dose: 1 mg Gabapentin (Gabapentin 600 Mg Tablet) 600 mg PO TID [facility] Last Admin: 03/24/22 13:56 Dose: 600 mg Hydrochlorothiazide (Hydrochlorothiazide 25 Mg Tablet) 25 mg PO DAILY [facility]; Protocol Last Admin: 03/24/22 08:55 Dose: 25 mg Hydroxyzine HCl (Hydroxyzine Hcl 50 Mg Tablet) 50 mg PO TID PRN PRN Reason: anxiety/insomnia Last Admin: 03/24/22 13:56 Dose: 50 mg Lurasidone HCl (Lurasidone Hcl 40 Mg Tablet) 120 mg PO BEDTIME [facility] Last Admin: 03/23/22 20:46 Dose: 120 mg Magnesium Hydroxide (Milk Of Magnesia 30 Ml Oral.Susp) 30 ml PO DAILY PRN PRN Reason: Constipation Metformin HCl (Metformin Hcl 500 Mg Tablet) 500 mg PO BID [facility] Last Admin: 03/24/22 08:55 Dose: 500 mg Methadone HCl (Methadone Hcl 20 Mg/2 Ml Oral.Conc) 180 mg PO DAILY [facility] Last Admin: 03/24/22 08:59 Dose: 180 mg Multivitamins/Vitamin C (Multivitamin Tablet) 1 tab PO DAILY [facility] Last Admin: 03/24/22 08:55 Dose: 1 tab Nicotine Polacrilex (Nicotine Polacrilex Lozenge 2 Mg Lozenge) 2 mg BUCCAL Q2H PRN PRN Reason: Nicotine Cravings Omeprazole (Omeprazole 20 Mg Capsule.Dr) 20 mg PO BID@0630,1630 [facility] Last Admin: 03/24/22 08:55 Dose: 20 mg Psyllium Hydrophilic Mucilloid (Psyllium Seed 3.4 Gm Powd.Pack) 3.4 gm PO DAILY [facility] Last Admin: 03/24/22 09:01 Dose: Not Given Pyridoxine HCl (Pyridoxine Hcl (Vitamin B6) 50 Mg Tablet) 50 mg PO DAILY [facility] Last Admin: 03/24/22 08:55 Dose: 50 mg Sertraline HCl (Sertraline Hcl 25 Mg Tablet) 125 mg PO DAILY [facility] Last Admin: 03/24/22 08:55 Dose: 125 mg Trazodone HCl (Trazodone Hcl 50 Mg Tablet) 50 mg PO BEDTIME PRN PRN Reason: Insomnia Last Admin: 03/21/22 19:49 Dose: 50 mg Trimethoprim/Sulfamethoxazole (Sulfamethox/Trimeth 800/160 Tablet) 1 tab PO 08,1999 [facility] Last Admin: 03/24/22 09:09 Dose: 1 tab Allergies Allergies Allergy/AdvReac Type Severity Reaction Status Date / Time meperidine [From Demerol] Allergy Mild UNKNOWN Verified 08/31/21 06:57 Penicillins Allergy Mild UNKNOWN Verified 08/31/21 06:57 propoxyphene Allergy Mild UNKNOWN Verified 08/31/21 06:57 [From Darvocet-N 50] Sulfa (Sulfonamide Allergy Mild UNKNOWN, Verified 08/31/21 06:57 Antibiotics) HIVES penicillin V Allergy Unknown SWELLING Verified 08/31/21 06:57 Assessment & Plan Assessment & Plan (1) PTSD (post-traumatic stress disorder): Status: Acute Code(s): F43.10 - Post-traumatic stress disorder, unspecified (2) Opioid use disorder, moderate, in early remission: Status: Acute Code(s): F11.21 - Opioid dependence, in remission (3) Bipolar 2 disorder, major depressive episode: Status: Acute Code(s): F31.81 - Bipolar II disorder Plan Increase Sertraline to 125 mg daily Ferrous sulfate 325 mg daily 03/24/22: Continue current regime Patient educated on: medication risk/benefits and therapeutic strategies Informed Consent: further education needed Reason for contiued inpatient stay Substantial Risk for: harm to self and rapid decompensation Time Spent With Patient Time: Total time managing care of this patient today _25___ minutes.
[2022-03-24 18:00] VITALS: BP 133/84; PULSE 110; RESP 16; TEMP 36.4; O2SAT 98
[2022-03-24] MEDS: chlorproMAZINE HCl 25 MG TABLET 50 MG PO (20:17)
[2022-03-24] MEDS: traZODone HCL 50 MG TABLET PO (20:18)
[2022-03-24] MEDS: cloNIDine HCL 0.2 MG TABLET 0.4 MG PO (20:18)
[2022-03-24] MEDS: Lurasidone HCl 40 MG TABLET 120 MG PO (20:18)
[2022-03-25] MEDS: Omeprazole 20 MG CAPSULE.DR PO ×2 (05:53→16:26)
[2022-03-25 06:00] VITALS: BP 117/71; PULSE 109; RESP 14; TEMP 36.7; O2SAT 95
[2022-03-25] MEDS: methADONE HCl 20 MG/2 ML ORAL.CONC 180 MG PO (08:38)
[2022-03-25] MEDS: Sertraline HCL 25 MG TABLET 125 MG PO (08:38)
[2022-03-25] MEDS: hydroCHLOROthiazide 25 MG TABLET PO (08:39)
[2022-03-25] MEDS: Ferrous Sulfate 324 MG TABLET.DR PO (08:39)
[2022-03-25] MEDS: buPROPion HCl XL 300 MG TAB.ER.24H PO (08:39)
[2022-03-25] MEDS: Folic Acid 1 MG TABLET PO (08:39)
[2022-03-25] MEDS: Gabapentin 600 MG TABLET PO ×3 (08:39→20:39)
[2022-03-25] MEDS: Multivitamin TABLET 1 TAB PO (08:39)
[2022-03-25] MEDS: Pyridoxine HCl (Vitamin B6) 50 MG TABLET PO (08:39)
[2022-03-25] MEDS: buPROPion HCl XL 150 MG TAB.ER.24H PO (08:39)
[2022-03-25] MEDS: metFORMIN HCl 500 MG TABLET PO ×2 (08:39→20:38)
[2022-03-25] MEDS: clonazePAM 1 MG TABLET PO ×2 (09:07→17:54)
[2022-03-25] MEDS: cloNIDine HCL 0.2 MG TABLET PO ×2 (09:08→14:28)
[2022-03-25] MEDS: Sulfamethox/Trimeth 800/160 TABLET 1 TAB PO ×2 (09:08→20:47)
[2022-03-25] MEDS: Acetaminophen 325 MG TABLET 650 MG PO (13:23)
[2022-03-25] MEDS: hydrOXYzine HCL 50 MG TABLET PO ×2 (13:23→17:54)
[2022-03-25] MEDS: chlorproMAZINE HCl 25 MG TABLET PO (13:24)
[2022-03-25 17:22] VITALS: BP 123/75; PULSE 98; RESP 18; O2SAT 96
--- NOTE | 2022-03-25 18:43 | P.PNPSI_ITS ---
Subjective Subjective Date of Service: 03/25/22 Reason For Visit: SI Interim History: Reviewed with nursing. Episode of chest pain 03/24 evening. STAT EKG ordered. no results yet. Pt reports pain did resolve, however she remains depressed and spending much time in bed, citing depressive sx as primary issue. Denies pain, no current physical sx. Medication Compliance: Yes Side effects from medications: No Attending Groups: Intermittent Review of Systems Acute medical concerns: No Medical Review of Systems: unchanged Mental Status Exam Mental Status Exam Patient Appearance: Appropriate Patient Orientation: Person, Place, Time and Situation Level of Consciousness: Alert Patient Behavior: Appropriate, Talkative, Cooperative and Good Eye Contact Mood Description: Constricted and Depressed Affect Description: Constricted and Flat Patient Cognition Impaired: No Ability to Follow Directions: Good Speech Pattern: Spontaneous Speech Memory Description: Intact Hallucinations: None Delusions: Not Present Thought Process: Goal Oriented Thought Content: positive for Goal Oriented and positive for Suicidal Ideation (passive) Depressive Symptoms: Increased Anxiety, Hopelessness, Isolating-Friends/Family, Increased Fatigue, Thoughts of /Suicide (passive), Loss of Energy and Difficulty Concentrating Judgement: Fair Diagnostics Vital Signs (24Hr): Vital Signs - 24 hr 03/25/22 06:00 03/25/22 17:22 Temperature 98.0 F Pulse Rate 109 H 98 Respiratory Rate 14 18 Blood Pressure 117/71 123/75 Pulse Oximetry 95 96 Oxygen Delivery Method Room Air Room Air BMI result Body Mass Index 52.5 Labs 03/13/22 20:49 03/19/22 07:58 Medications Medications Current Medications Acetaminophen (Acetaminophen 325 Mg Tablet) 650 mg PO Q6H PRN PRN Reason: Headache/Pain Mild Scale (1-3) Last Admin: 03/25/22 13:23 Dose: 650 mg Al Hydroxide/Mg Hydroxide (Magnesium Hydrox/Alum Hydrox 30 Ml Oral.Susp) 30 ml PO Q6H PRN PRN Reason: Heartburn/Nausea Bupropion HCl (Bupropion Hcl Xl 150 Mg Tab.Er.24h) 150 mg PO DAILY [facility] B[facility]S [facility] Last Admin: 03/25/22 08:39 Dose: 150 mg Bupropion HCl (Bupropion Hcl Xl 300 Mg Tab.Er.24h) 300 mg PO DAILY [facility] 234 B[facility]S [facility] Last Admin: 03/25/22 08:39 Dose: 300 mg Chlorpromazine HCl (Chlorpromazine Hcl 25 Mg Tablet) 50 mg PO BEDTIME [facility]S [facility] 234 BEDS [facility] Last Admin: 03/24/22 20:17 Dose: 50 mg Chlorpromazine HCl (Chlorpromazine Hcl 25 Mg Tablet) 50 mg PO BEDTIME PRN PRN Reason: continued insomnia Last Admin: 03/22/22 21:52 Dose: 50 mg Chlorpromazine HCl (Chlorpromazine Hcl 25 Mg Tablet) 25 mg PO BID PRN PRN Reason: anxiety Last Admin: 03/25/22 13:24 Dose: 25 mg Clonazepam (Clonazepam 1 Mg Tablet) 1 mg PO BID PRN PRN Reason: Anxiety Last Admin: 03/25/22 17:54 Dose: 1 mg Clonidine HCl (Clonidine Hcl 0.2 Mg Tablet) 0.2 mg PO TID PRN; Protocol PRN Reason: Anxiety Last Admin: 03/25/22 14:28 Dose: 0.2 mg Clonidine HCl (Clonidine Hcl 0.2 Mg Tablet) 0.4 mg PO BEDTIME [facility] 234 BEDS [facility]; Protocol Last Admin: 03/24/22 20:18 Dose: 0.4 mg Ferrous Sulfate (Ferrous Sulfate 324 Mg Tablet.Dr) 324 mg PO DAILY [facility] 234 BEDS [facility] Last Admin: 03/25/22 08:39 Dose: 324 mg Fluticasone Propionate (Fluticasone Propionate Nasal 16 Gm [place]) 1 spray [place] RIL-B BID [facility] 234 BEDS [facility] Last Admin: 03/25/22 08:43 Dose: Not Given Folic Acid (Folic Acid 1 Mg Tablet) 1 mg PO DAILY [facility] 234 BEDS [facility] Last Admin: 03/25/22 08:39 Dose: 1 mg Gabapentin (Gabapentin 600 Mg Tablet) 600 mg PO TID [facility] 234 BEDS [facility] Last Admin: 03/25/22 14:16 Dose: 600 mg Hydrochlorothiazide (Hydrochlorothiazide 25 Mg Tablet) 25 mg PO DAILY [facility] 234 BEDS [facility]; Protocol Last Admin: 03/25/22 08:39 Dose: 25 mg Hydroxyzine HCl (Hydroxyzine Hcl 50 Mg Tablet) 50 mg PO TID PRN PRN Reason: anxiety/insomnia Last Admin: 03/25/22 17:54 Dose: 50 mg Lurasidone HCl (Lurasidone Hcl 40 Mg Tablet) 120 mg PO BEDTIME [facility] 234 BEDS [facility] Last Admin: 03/24/22 20:18 Dose: 120 mg Magnesium Hydroxide (Milk Of Magnesia 30 Ml Oral.Susp) 30 ml PO DAILY PRN PRN Reason: Constipation Metformin HCl (Metformin Hcl 500 Mg Tablet) 500 mg PO BID [facility] 234 B[facility]S [facility] Last Admin: 03/25/22 08:39 Dose: 500 mg Methadone HCl (Methadone Hcl 20 Mg/2 Ml Oral.Conc) 180 mg PO DAILY [facility] 234 B[facility]S [facility] Last Admin: 03/25/22 08:38 Dose: 180 mg Multivitamins/Vitamin C (Multivitamin Tablet) 1 tab PO DAILY [facility] 234 BEDS [facility] Last Admin: 03/25/22 08:39 Dose: 1 tab Nicotine Polacrilex (Nicotine Polacrilex Lozenge 2 Mg Lozenge) 2 mg BUCCAL Q2H PRN PRN Reason: Nicotine Cravings Omeprazole (Omeprazole 20 Mg Capsule.Dr) 20 mg PO BID@0630,1630 [facility]S [facility] 234 BEDS [facility] Last Admin: 03/25/22 16:26 Dose: 20 mg Psyllium Hydrophilic Mucilloid (Psyllium Seed 3.4 Gm Powd.Pack) 3.4 gm PO DAILY [facility] 234 BEDS [facility] Last Admin: 03/25/22 10:03 Dose: Not Given Pyridoxine HCl (Pyridoxine Hcl (Vitamin B6) 50 Mg Tablet) 50 mg PO DAILY [facility] 234 BEDS [facility] Last Admin: 03/25/22 08:39 Dose: 50 mg Sertraline HCl (Sertraline Hcl 25 Mg Tablet) 125 mg PO DAILY [facility] 234 BEDS [facility] Last Admin: 03/25/22 08:38 Dose: 125 mg Trazodone HCl (Trazodone Hcl 50 Mg Tablet) 50 mg PO BEDTIME PRN PRN Reason: Insomnia Last Admin: 03/24/22 20:18 Dose: 50 mg Trimethoprim/Sulfamethoxazole (Sulfamethox/Trimeth 800/160 Tablet) 1 tab PO 0800,1999 [facility]S [facility] 234 BEDS AT [facility] Last Admin: 03/25/22 09:08 Dose: 1 tab Allergies Allergies Allergy/AdvReac Type Severity Reaction Status Date / Time meperidine [From Demerol] Allergy Mild UNKNOWN Verified 08/31/21 06:57 Penicillins Allergy Mild UNKNOWN Verified 08/31/21 06:57 propoxyphene Allergy Mild UNKNOWN Verified 08/31/21 06:57 [From Darvocet-N 50] Sulfa (Sulfonamide Allergy Mild UNKNOWN, Verified 08/31/21 06:57 Antibiotics) HIVES penicillin V Allergy Unknown SWELLING Verified 08/31/21 06:57 Assessment & Plan Assessment & Plan (1) PTSD (post-traumatic stress disorder): Status: Acute Code(s): F43.10 - Post-traumatic stress disorder, unspecified (2) Opioid use disorder, moderate, in early remission: Status: Acute Code(s): F11.21 - Opioid dependence, in remission (3) Bipolar 2 disorder, major depressive episode: Status: Acute Code(s): F31.81 - Bipolar II disorder Plan Increase Sertraline to 125 mg daily Ferrous sulfate 325 mg daily 03/25/22: Continue current regime. Patient educated on: therapeutic strategies Informed Consent: understands Reason for contiued inpatient stay Substantial Risk for: rapid decompensation Time Spent With Patient Time: Total time managing care of this patient today 15____ minutes.
[2022-03-25 20:35] VITALS: BP 127/73; PULSE 113; RESP 14; TEMP 36.3
[2022-03-25] MEDS: traZODone HCL 50 MG TABLET PO (20:38)
[2022-03-25] MEDS: Lurasidone HCl 40 MG TABLET 120 MG PO (20:39)
[2022-03-25] MEDS: chlorproMAZINE HCl 25 MG TABLET 50 MG PO ×2 (20:39→23:29)
[2022-03-25] MEDS: cloNIDine HCL 0.2 MG TABLET 0.4 MG PO (20:39)
[2022-03-25] MEDS: Fluticasone Propionate Nasal 16 GM SPRAY 1 SPRAY NOSTRIL-B (20:43)
[2022-03-26 06:00] VITALS: BP 128/67; PULSE 110; RESP 14; TEMP 36.6; O2SAT 95
[2022-03-26] MEDS: Omeprazole 20 MG CAPSULE.DR PO ×2 (06:38→16:57)
[2022-03-26] MEDS: Multivitamin TABLET 1 TAB PO (08:35)
[2022-03-26] MEDS: Sertraline HCL 25 MG TABLET 125 MG PO (08:35)
[2022-03-26] MEDS: Gabapentin 600 MG TABLET PO ×3 (08:35→20:26)
[2022-03-26] MEDS: metFORMIN HCl 500 MG TABLET PO ×2 (08:35→20:26)
[2022-03-26] MEDS: buPROPion HCl XL 150 MG TAB.ER.24H PO (08:35)
[2022-03-26] MEDS: hydroCHLOROthiazide 25 MG TABLET PO (08:36)
[2022-03-26] MEDS: Ferrous Sulfate 324 MG TABLET.DR PO (08:36)
[2022-03-26] MEDS: Sulfamethox/Trimeth 800/160 TABLET 1 TAB PO ×2 (08:36→20:26)
[2022-03-26] MEDS: methADONE HCl 20 MG/2 ML ORAL.CONC 180 MG PO (08:36)
[2022-03-26] MEDS: Folic Acid 1 MG TABLET PO (08:36)
[2022-03-26] MEDS: Pyridoxine HCl (Vitamin B6) 50 MG TABLET PO (08:36)
[2022-03-26] MEDS: buPROPion HCl XL 300 MG TAB.ER.24H PO (08:36)
[2022-03-26 09:11] LABS: Creatinine Clr Calc Pharmacy 144.2; Estimated Glomerular Filt Rate > 60
[2022-03-26] MEDS: Acetaminophen 325 MG TABLET 650 MG PO ×2 (10:21→20:25)
[2022-03-26] MEDS: clonazePAM 1 MG TABLET PO ×2 (10:21→18:06)
[2022-03-26] MEDS: cloNIDine HCL 0.2 MG TABLET PO ×2 (10:21→18:06)
[2022-03-26 18:00] VITALS: BP 125/69; PULSE 111; RESP 14; TEMP 36.4
--- NOTE | 2022-03-26 19:23 | HO.PSYCHPN ---
Subjective Subjective Date of Service: 03/26/22 Reason For Visit: SI Subjective Notes: Conditional Voluntary Healthcare Proxy: No Guardianship: No Medical Problems Affecting Mental Status: No Interim History: Care discussed with nursing. Pt more engaged today-encouraged by team to be out of bed and in milieu. Using compression stockings for BLE edema. Reports urinary incontinence at night since 2019 (before starting on meds). Willing to attend OP referral appt on discharge for consult with urology. Continues with depressive sx 07/12 Medication Compliance: Yes Side effects from medications: No Attending Groups: Yes Review of Systems Acute medical concerns: No Medical Review of Systems: unchanged Mental Status Exam Mental Status Exam Patient Appearance: Appropriate Patient Orientation: Person, Place, Time and Situation Level of Consciousness: Alert Patient Behavior: Appropriate, Talkative, Cooperative and Good Eye Contact Mood Description: Constricted and Depressed Affect Description: Constricted and Flat Patient Cognition Impaired: No Ability to Follow Directions: Good Speech Pattern: Spontaneous Speech Memory Description: Intact Hallucinations: None Delusions: Not Present Thought Process: Goal Oriented Thought Content: positive for Goal Oriented and positive for Suicidal Ideation (passive) Depressive Symptoms: Increased Anxiety, Hopelessness, Isolating-Friends/Family, Increased Fatigue, Thoughts of /Suicide (passive), Loss of Energy and Difficulty Concentrating Judgement: Fair Diagnostics Vital Signs (24Hr): Vital Signs - 24 hr 03/25/22 20:35 03/26/22 06:00 03/26/22 18:00 Temperature 97.4 F 98 F 97.6 F Pulse Rate 113 H 110 H 111 H Respiratory Rate 14 14 14 Blood Pressure 127/73 128/67 125/69 Pulse Oximetry 95 Oxygen Delivery Method Room Air BMI result Body Mass Index 52.5 Labs 03/13/22 20:49 03/26/22 08:19 Labs: Laboratory Results - last 48 hr 03/26/22 08:19 Creatinine 0.70 Estim Creat Clear Calc 144.2 Estimated GFR > 60 Medications Medications Current Medications Acetaminophen (Acetaminophen 325 Mg Tablet) 650 mg PO Q6H PRN PRN Reason: Headache/Pain Mild Scale (1-3) Last Admin: 03/26/22 10:21 Dose: 650 mg Al Hydroxide/Mg Hydroxide (Magnesium Hydrox/Alum Hydrox 30 Ml Oral.Susp) 30 ml PO Q6H PRN PRN Reason: Heartburn/Nausea Bupropion HCl (Bupropion Hcl Xl 150 Mg Tab.Er.24h) 150 mg PO DAILY [facility] Last Admin: 03/26/22 08:35 Dose: 150 mg Bupropion HCl (Bupropion Hcl Xl 300 Mg Tab.Er.24h) 300 mg PO DAILY [facility] Last Admin: 03/26/22 08:36 Dose: 300 mg Chlorpromazine HCl (Chlorpromazine Hcl 25 Mg Tablet) 50 mg PO BEDTIME [facility] Last Admin: 03/25/22 20:39 Dose: 50 mg Chlorpromazine HCl (Chlorpromazine Hcl 25 Mg Tablet) 50 mg PO BEDTIME PRN PRN Reason: continued insomnia Last Admin: 03/25/22 23:29 Dose: 50 mg Chlorpromazine HCl (Chlorpromazine Hcl 25 Mg Tablet) 25 mg PO BID PRN PRN Reason: anxiety Last Admin: 03/25/22 13:24 Dose: 25 mg Clonazepam (Clonazepam 1 Mg Tablet) 1 mg PO BID PRN PRN Reason: Anxiety Last Admin: 03/26/22 18:06 Dose: 1 mg Clonidine HCl (Clonidine Hcl 0.2 Mg Tablet) 0.2 mg PO TID PRN; Protocol PRN Reason: Anxiety Last Admin: 03/26/22 18:06 Dose: 0.2 mg Clonidine HCl (Clonidine Hcl 0.2 Mg Tablet) 0.4 mg PO BEDTIME [facility]; Protocol Last Admin: 03/25/22 20:39 Dose: 0.4 mg Ferrous Sulfate (Ferrous Sulfate 324 Mg Tablet.Dr) 324 mg PO DAILY [facility] Last Admin: 03/26/22 08:36 Dose: 324 mg Fluticasone Propionate (Fluticasone Propionate Nasal 16 Gm [place]) 1 spray NOSTRIL-B BID COUNTS INCLUDE 234 BEDS AT THE [facility] Last Admin: 03/26/22 08:40 Dose: Not Given Folic Acid (Folic Acid 1 Mg Tablet) 1 mg PO DAILY [facility] Last Admin: 03/26/22 08:36 Dose: 1 mg Gabapentin (Gabapentin 600 Mg Tablet) 600 mg PO TID [facility] Last Admin: 03/26/22 14:08 Dose: 600 mg Hydrochlorothiazide (Hydrochlorothiazide 25 Mg Tablet) 25 mg PO DAILY COUNTS INCLUDE 234 BEDS AT THE [facility]; Protocol Last Admin: 03/26/22 08:36 Dose: 25 mg Hydroxyzine HCl (Hydroxyzine Hcl 50 Mg Tablet) 50 mg PO TID PRN PRN Reason: anxiety/insomnia Last Admin: 03/25/22 17:54 Dose: 50 mg Lurasidone HCl (Lurasidone Hcl 40 Mg Tablet) 120 mg PO BEDTIME COUNTS INCLUDE 234 BEDS AT THE [facility] Last Admin: 03/25/22 20:39 Dose: 120 mg Magnesium Hydroxide (Milk Of Magnesia 30 Ml Oral.Susp) 30 ml PO DAILY PRN PRN Reason: Constipation Metformin HCl (Metformin Hcl 500 Mg Tablet) 500 mg PO BID COUNTS INCLUDE 234 BEDS AT THE [facility] Last Admin: 03/26/22 08:35 Dose: 500 mg Methadone HCl (Methadone Hcl 20 Mg/2 Ml Oral.Conc) 180 mg PO DAILY COUNTS INCLUDE 234 BEDS AT THE [facility] Last Admin: 03/26/22 08:36 Dose: 180 mg Multivitamins/Vitamin C (Multivitamin Tablet) 1 tab PO DAILY COUNTS INCLUDE 234 BEDS AT THE [facility] Last Admin: 03/26/22 08:35 Dose: 1 tab Nicotine Polacrilex (Nicotine Polacrilex Lozenge 2 Mg Lozenge) 2 mg BUCCAL Q2H PRN PRN Reason: Nicotine Cravings Omeprazole (Omeprazole 20 Mg Capsule.Dr) 20 mg PO BID@0630,1630 COUNTS INCLUDE 234 BEDS AT THE [facility] Last Admin: 03/26/22 16:57 Dose: 20 mg Psyllium Hydrophilic Mucilloid (Psyllium Seed 3.4 Gm Powd.Pack) 3.4 gm PO DAILY COUNTS INCLUDE 234 BEDS AT THE [facility] Last Admin: 03/26/22 08:40 Dose: Not Given Pyridoxine HCl (Pyridoxine Hcl (Vitamin B6) 50 Mg Tablet) 50 mg PO DAILY COUNTS INCLUDE 234 BEDS AT THE [facility] Last Admin: 03/26/22 08:36 Dose: 50 mg Sertraline HCl (Sertraline Hcl 25 Mg Tablet) 125 mg PO DAILY COUNTS INCLUDE 234 BEDS AT THE [facility] Last Admin: 03/26/22 08:35 Dose: 125 mg Trazodone HCl (Trazodone Hcl 50 Mg Tablet) 50 mg PO BEDTIME PRN PRN Reason: Insomnia Last Admin: 03/25/22 20:38 Dose: 50 mg Trimethoprim/Sulfamethoxazole (Sulfamethox/Trimeth 800/160 Tablet) 1 tab PO 08,1999 COUNTS INCLUDE 234 BEDS AT THE [facility] Last Admin: 03/26/22 08:36 Dose: 1 tab Allergies Allergies Allergy/AdvReac Type Severity Reaction Status Date / Time meperidine [From Demerol] Allergy Mild UNKNOWN Verified 08/31/21 06:57 Penicillins Allergy Mild UNKNOWN Verified 08/31/21 06:57 propoxyphene Allergy Mild UNKNOWN Verified 08/31/21 06:57 [From Darvocet-N 50] Sulfa (Sulfonamide Allergy Mild UNKNOWN, Verified 08/31/21 06:57 Antibiotics) HIVES penicillin V Allergy Unknown SWELLING Verified 08/31/21 06:57 Assessment & Plan Assessment & Plan (1) PTSD (post-traumatic stress disorder): Status: Acute Code(s): F43.10 - Post-traumatic stress disorder, unspecified (2) Opioid use disorder, moderate, in early remission: Status: Acute Code(s): F11.21 - Opioid dependence, in remission (3) Bipolar 2 disorder, major depressive episode: Status: Acute Code(s): F31.81 - Bipolar II disorder Plan Increase Sertraline to 125 mg daily Ferrous sulfate 325 mg daily 03/25/22: Continue current regime. 03/26/22: Continue current plan. Patient educated on: medication risk/benefits, therapeutic strategies and medical condition Informed Consent: understands and further education needed Reason for contiued inpatient stay Substantial Risk for: harm to self and rapid decompensation Time Spent With Patient Time: Total time managing care of this patient today __15__ minutes.
[2022-03-26 20:20] VITALS: BP 131/75
[2022-03-26] MEDS: Lurasidone HCl 40 MG TABLET 120 MG PO (20:24)
[2022-03-26] MEDS: traZODone HCL 50 MG TABLET PO (20:25)
[2022-03-26] MEDS: hydrOXYzine HCL 50 MG TABLET PO ×2 (20:25→22:33)
[2022-03-26] MEDS: cloNIDine HCL 0.2 MG TABLET 0.4 MG PO (20:25)
[2022-03-26] MEDS: chlorproMAZINE HCl 25 MG TABLET 50 MG PO ×2 (20:25→22:33)
[2022-03-27 06:00] VITALS: BP 140/79; PULSE 120; RESP 14; TEMP 36.6; O2SAT 94
[2022-03-27] MEDS: Omeprazole 20 MG CAPSULE.DR PO ×2 (06:19→19:38)
[2022-03-27] MEDS: Pyridoxine HCl (Vitamin B6) 50 MG TABLET PO (08:28)
[2022-03-27] MEDS: Gabapentin 600 MG TABLET PO ×3 (08:28→19:39)
[2022-03-27] MEDS: buPROPion HCl XL 300 MG TAB.ER.24H PO (08:28)
[2022-03-27] MEDS: Sulfamethox/Trimeth 800/160 TABLET 1 TAB PO ×2 (08:28→19:38)
[2022-03-27] MEDS: Ferrous Sulfate 324 MG TABLET.DR PO (08:28)
[2022-03-27] MEDS: metFORMIN HCl 500 MG TABLET PO ×2 (08:28→19:39)
[2022-03-27] MEDS: Folic Acid 1 MG TABLET PO (08:28)
[2022-03-27] MEDS: Sertraline HCL 25 MG TABLET 125 MG PO (08:28)
[2022-03-27] MEDS: Multivitamin TABLET 1 TAB PO (08:28)
[2022-03-27] MEDS: buPROPion HCl XL 150 MG TAB.ER.24H PO (08:29)
[2022-03-27] MEDS: hydroCHLOROthiazide 25 MG TABLET PO (08:29)
[2022-03-27] MEDS: methADONE HCl 20 MG/2 ML ORAL.CONC 180 MG PO (09:03)
[2022-03-27] MEDS: methADONE HCl 20 MG/2 ML ORAL.CONC 10 MG PO (11:27)
[2022-03-27] MEDS: clonazePAM 1 MG TABLET PO ×2 (11:46→19:39)
[2022-03-27] MEDS: cloNIDine HCL 0.2 MG TABLET PO (11:46)
--- NOTE | 2022-03-27 14:10 | HO.PSYCHPN ---
Subjective Subjective Date of Service: 03/27/22 Reason For Visit: SI Subjective Notes: Conditional Voluntary Healthcare Proxy: No Guardianship: No Medical Problems Affecting Mental Status: No Interim History: Continues to report sx of depression. Applications filed for housing resources for pt. Pt not feeling any improvement from Sertraline titration. Medication Compliance: Yes Side effects from medications: No Attending Groups: Intermittent Review of Systems Acute medical concerns: No Medical Review of Systems: unchanged Mental Status Exam Mental Status Exam Patient Appearance: Appropriate Patient Orientation: Person, Place, Time and Situation Level of Consciousness: Alert Patient Behavior: Appropriate, Talkative, Cooperative and Good Eye Contact Mood Description: Constricted and Depressed Affect Description: Constricted and Flat Patient Cognition Impaired: No Ability to Follow Directions: Good Speech Pattern: Spontaneous Speech Memory Description: Intact Hallucinations: None Delusions: Not Present Thought Process: Goal Oriented Thought Content: positive for Goal Oriented and positive for Suicidal Ideation (passive) Depressive Symptoms: Increased Anxiety, Hopelessness, Isolating-Friends/Family, Increased Fatigue, Thoughts of /Suicide (passive), Loss of Energy and Difficulty Concentrating Judgement: Fair Diagnostics Vital Signs (24Hr): Vital Signs - 24 hr 03/26/22 18:00 03/26/22 20:20 03/27/22 06:00 Temperature 97.6 F 97.8 F Pulse Rate 111 H 120 H Respiratory Rate 14 14 Blood Pressure 125/69 131/75 140/79 H Pulse Oximetry 94 Oxygen Delivery Method Room Air BMI result Body Mass Index 52.5 Labs 03/13/22 20:49 03/26/22 08:19 Labs: Laboratory Results - last 48 hr 03/26/22 08:19 Creatinine 0.70 Estim Creat Clear Calc 144.2 Estimated GFR > 60 Medications Medications Current Medications Acetaminophen (Acetaminophen 325 Mg Tablet) 650 mg PO Q6H PRN PRN Reason: Headache/Pain Mild Scale (1-3) Last Admin: 03/26/22 20:25 Dose: 650 mg Al Hydroxide/Mg Hydroxide (Magnesium Hydrox/Alum Hydrox 30 Ml Oral.Susp) 30 ml PO Q6H PRN PRN Reason: Heartburn/Nausea Bupropion HCl (Bupropion Hcl Xl 150 Mg Tab.Er.24h) 150 mg PO DAILY [facility] Last Admin: 03/27/22 08:29 Dose: 150 mg Bupropion HCl (Bupropion Hcl Xl 300 Mg Tab.Er.24h) 300 mg PO DAILY [facility] Last Admin: 03/27/22 08:28 Dose: 300 mg Chlorpromazine HCl (Chlorpromazine Hcl 25 Mg Tablet) 50 mg PO BEDTIME [facility] Last Admin: 03/26/22 20:25 Dose: 50 mg Chlorpromazine HCl (Chlorpromazine Hcl 25 Mg Tablet) 50 mg PO BEDTIME PRN PRN Reason: continued insomnia Last Admin: 03/26/22 22:33 Dose: 50 mg Chlorpromazine HCl (Chlorpromazine Hcl 25 Mg Tablet) 25 mg PO BID PRN PRN Reason: anxiety Last Admin: 03/25/22 13:24 Dose: 25 mg Clonazepam (Clonazepam 1 Mg Tablet) 1 mg PO BID PRN PRN Reason: Anxiety Last Admin: 03/27/22 11:46 Dose: 1 mg Clonidine HCl (Clonidine Hcl 0.2 Mg Tablet) 0.2 mg PO TID PRN; Protocol PRN Reason: Anxiety Last Admin: 03/27/22 11:46 Dose: 0.2 mg Clonidine HCl (Clonidine Hcl 0.2 Mg Tablet) 0.4 mg PO BEDTIME [facility]; Protocol Last Admin: 03/26/22 20:25 Dose: 0.4 mg Ferrous Sulfate (Ferrous Sulfate 324 Mg Tablet.Dr) 324 mg PO DAILY [facility] Last Admin: 03/27/22 08:28 Dose: 324 mg Fluticasone Propionate (Fluticasone Propionate Nasal 16 Gm [place]) 1 spray NOSTRIL-B BID [facility] Last Admin: 03/27/22 13:01 Dose: Not Given Folic Acid (Folic Acid 1 Mg Tablet) 1 mg PO DAILY [facility] Last Admin: 03/27/22 08:28 Dose: 1 mg Gabapentin (Gabapentin 600 Mg Tablet) 600 mg PO TID [facility] Last Admin: 03/27/22 08:28 Dose: 600 mg Hydrochlorothiazide (Hydrochlorothiazide 25 Mg Tablet) 25 mg PO DAILY [facility]; Protocol Last Admin: 03/27/22 08:29 Dose: 25 mg Hydroxyzine HCl (Hydroxyzine Hcl 50 Mg Tablet) 50 mg PO TID PRN PRN Reason: anxiety/insomnia Last Admin: 03/26/22 22:33 Dose: 50 mg Lurasidone HCl (Lurasidone Hcl 40 Mg Tablet) 120 mg PO BEDTIME [facility] Last Admin: 03/26/22 20:24 Dose: 120 mg Magnesium Hydroxide (Milk Of Magnesia 30 Ml Oral.Susp) 30 ml PO DAILY PRN PRN Reason: Constipation Metformin HCl (Metformin Hcl 500 Mg Tablet) 500 mg PO BID [facility] Last Admin: 03/27/22 08:28 Dose: 500 mg Methadone HCl (Methadone Hcl 20 Mg/2 Ml Oral.Conc) 180 mg PO DAILY [facility] Last Admin: 03/27/22 09:03 Dose: 170 mg Multivitamins/Vitamin C (Multivitamin Tablet) 1 tab PO DAILY [facility] Last Admin: 03/27/22 08:28 Dose: 1 tab Nicotine Polacrilex (Nicotine Polacrilex Lozenge 2 Mg Lozenge) 2 mg BUCCAL Q2H PRN PRN Reason: Nicotine Cravings Omeprazole (Omeprazole 20 Mg Capsule.Dr) 20 mg PO BID@0630,1630 [facility] Last Admin: 03/27/22 06:19 Dose: 20 mg Psyllium Hydrophilic Mucilloid (Psyllium Seed 3.4 Gm Powd.Pack) 3.4 gm PO DAILY [facility] Last Admin: 03/27/22 13:01 Dose: Not Given Pyridoxine HCl (Pyridoxine Hcl (Vitamin B6) 50 Mg Tablet) 50 mg PO DAILY [facility] Last Admin: 03/27/22 08:28 Dose: 50 mg Sertraline HCl (Sertraline Hcl 25 Mg Tablet) 125 mg PO DAILY [facility] Last Admin: 03/27/22 08:28 Dose: 125 mg Trazodone HCl (Trazodone Hcl 50 Mg Tablet) 50 mg PO BEDTIME PRN PRN Reason: Insomnia Last Admin: 03/26/22 20:25 Dose: 50 mg Trimethoprim/Sulfamethoxazole (Sulfamethox/Trimeth 800/160 Tablet) 1 tab PO 0800,1999 [facility] Last Admin: 03/27/22 08:28 Dose: 1 tab Allergies Allergies Allergy/AdvReac Type Severity Reaction Status Date / Time meperidine [From Demerol] Allergy Mild UNKNOWN Verified 08/31/21 06:57 Penicillins Allergy Mild UNKNOWN Verified 08/31/21 06:57 propoxyphene Allergy Mild UNKNOWN Verified 08/31/21 06:57 [From Darvocet-N 50] Sulfa (Sulfonamide Allergy Mild UNKNOWN, Verified 08/31/21 06:57 Antibiotics) HIVES penicillin V Allergy Unknown SWELLING Verified 08/31/21 06:57 Assessment & Plan Assessment & Plan (1) PTSD (post-traumatic stress disorder): Status: Acute Code(s): F43.10 - Post-traumatic stress disorder, unspecified (2) Opioid use disorder, moderate, in early remission: Status: Acute Code(s): F11.21 - Opioid dependence, in remission (3) Bipolar 2 disorder, major depressive episode: Status: Acute Code(s): F31.81 - Bipolar II disorder Plan Increase Sertraline to 125 mg daily Ferrous sulfate 325 mg daily 03/25/22: Continue current regime. 03/27/22: Remains with depressive sx. Begin Effexor XR 37.5 mg. a.m. Patient educated on: therapeutic strategies Informed Consent: further education needed Reason for contiued inpatient stay Substantial Risk for: harm to self, inability to function and rapid decompensation Time Spent With Patient Time: Total time managing care of this patient today _20___ minutes.
[2022-03-27] MEDS: hydrOXYzine HCL 50 MG TABLET PO (14:19)
[2022-03-27] MEDS: chlorproMAZINE HCl 25 MG TABLET PO (14:19)
[2022-03-27 17:09] VITALS: BP 127/77; PULSE 100; TEMP 36.5; O2SAT 95
[2022-03-27] MEDS: Lurasidone HCl 40 MG TABLET 120 MG PO (19:38)
[2022-03-27] MEDS: cloNIDine HCL 0.2 MG TABLET 0.4 MG PO (19:39)
[2022-03-27] MEDS: chlorproMAZINE HCl 25 MG TABLET 50 MG PO (19:39)
[2022-03-27] MEDS: Acetaminophen 325 MG TABLET 650 MG PO (19:39)
[2022-03-27] MEDS: traZODone HCL 50 MG TABLET PO (19:41)
[2022-03-28] MEDS: hydroCHLOROthiazide 25 MG TABLET PO (08:39)
[2022-03-28] MEDS: Gabapentin 600 MG TABLET PO ×3 (08:39→20:40)
[2022-03-28] MEDS: Pyridoxine HCl (Vitamin B6) 50 MG TABLET PO (08:39)
[2022-03-28] MEDS: buPROPion HCl XL 300 MG TAB.ER.24H PO (08:39)
[2022-03-28] MEDS: buPROPion HCl XL 150 MG TAB.ER.24H PO (08:39)
[2022-03-28] MEDS: Omeprazole 20 MG CAPSULE.DR PO ×2 (08:39→17:37)
[2022-03-28] MEDS: Venlafaxine HCl ER 37.5 MG CAP.ER.24H PO (08:39)
[2022-03-28] MEDS: metFORMIN HCl 500 MG TABLET PO ×2 (08:39→20:41)
[2022-03-28] MEDS: Folic Acid 1 MG TABLET PO (08:39)
[2022-03-28] MEDS: Sertraline HCL 25 MG TABLET 125 MG PO (08:40)
[2022-03-28] MEDS: Ferrous Sulfate 324 MG TABLET.DR PO (08:40)
[2022-03-28] MEDS: Multivitamin TABLET 1 TAB PO (08:40)
[2022-03-28] MEDS: Sulfamethox/Trimeth 800/160 TABLET 1 TAB PO ×2 (08:40→19:35)
[2022-03-28] MEDS: Fluticasone Propionate Nasal 16 GM SPRAY 1 SPRAY NOSTRIL-B ×2 (08:40→20:40)
[2022-03-28] MEDS: methADONE HCl 20 MG/2 ML ORAL.CONC 180 MG PO (08:43)
[2022-03-28 09:34] VITALS: BP 126/71; PULSE 131; RESP 20; TEMP 36.4; O2SAT 92
[2022-03-28] MEDS: cloNIDine HCL 0.2 MG TABLET PO ×2 (09:45→18:10)
--- NOTE | 2022-03-28 13:19 | HO.PSYCHPN ---
Subjective Subjective Date of Service: 03/28/22 Reason For Visit: SI Subjective Notes: Conditional Voluntary Healthcare Proxy: No Guardianship: No Medical Problems Affecting Mental Status: No Interim History: Pt reports feeling slightly improved. Tolerating changes. Continues with SI, I don't know why. Today, she reports making contact with [facility]. They say I am on the list, but they are at their max and have no beds. They suggest I apply to [facility]. States [facility] is the max in terms of distance as she still wants to be close to her daughter-discussed [facility], she states [facility] could be an option as she was a patient there ~15 years ago. Discussed incontinence and her self-conscious feelings regarding this. Discussed products and will trial a few while treatment continues and placement search continues. Medication Compliance: Yes Side effects from medications: No Attending Groups: Yes Review of Systems Acute medical concerns: No Medical Review of Systems: unchanged Mental Status Exam Mental Status Exam Patient Appearance: Appropriate Patient Orientation: Person, Place, Time and Situation Level of Consciousness: Alert Patient Behavior: Appropriate, Talkative, Cooperative and Good Eye Contact Mood Description: Constricted and Depressed Affect Description: Constricted and Flat Patient Cognition Impaired: No Ability to Follow Directions: Good Speech Pattern: Spontaneous Speech Memory Description: Intact Hallucinations: None Delusions: Not Present Thought Process: Goal Oriented Thought Content: positive for Goal Oriented and positive for Suicidal Ideation (passive) Depressive Symptoms: Increased Anxiety, Hopelessness, Isolating-Friends/Family, Increased Fatigue, Thoughts of /Suicide (passive), Loss of Energy and Difficulty Concentrating Judgement: Fair Diagnostics Vital Signs (24Hr): Vital Signs - 24 hr 03/27/22 17:09 03/28/22 09:34 Temperature 97.7 F 97.6 F Pulse Rate 100 131 H Respiratory Rate 20 Blood Pressure 127/77 126/71 Pulse Oximetry 95 92 Oxygen Delivery Method Room Air Room Air BMI result Body Mass Index 52.5 Labs 03/13/22 20:49 03/26/22 08:19 Medications Medications Current Medications Acetaminophen (Acetaminophen 325 Mg Tablet) 650 mg PO Q6H PRN PRN Reason: Headache/Pain Mild Scale (1-3) Last Admin: 03/27/22 19:39 Dose: 650 mg Al Hydroxide/Mg Hydroxide (Magnesium Hydrox/Alum Hydrox 30 Ml Oral.Susp) 30 ml PO Q6H PRN PRN Reason: Heartburn/Nausea Bupropion HCl (Bupropion Hcl Xl 150 Mg Tab.Er.24h) 150 mg PO DAILY [facility] Last Admin: 03/28/22 08:39 Dose: 150 mg Bupropion HCl (Bupropion Hcl Xl 300 Mg Tab.Er.24h) 300 mg PO DAILY [facility] Last Admin: 03/28/22 08:39 Dose: 300 mg Chlorpromazine HCl (Chlorpromazine Hcl 25 Mg Tablet) 50 mg PO BEDTIME [facility] Last Admin: 03/27/22 19:39 Dose: 50 mg Chlorpromazine HCl (Chlorpromazine Hcl 25 Mg Tablet) 50 mg PO BEDTIME PRN PRN Reason: continued insomnia Last Admin: 03/26/22 22:33 Dose: 50 mg Chlorpromazine HCl (Chlorpromazine Hcl 25 Mg Tablet) 25 mg PO BID PRN PRN Reason: anxiety Last Admin: 03/27/22 14:19 Dose: 25 mg Clonazepam (Clonazepam 1 Mg Tablet) 1 mg PO BID PRN PRN Reason: Anxiety Last Admin: 03/27/22 19:39 Dose: 1 mg Clonidine HCl (Clonidine Hcl 0.2 Mg Tablet) 0.2 mg PO TID PRN; Protocol PRN Reason: Anxiety Last Admin: 03/27/22 11:46 Dose: 0.2 mg Clonidine HCl (Clonidine Hcl 0.2 Mg Tablet) 0.4 mg PO BEDTIME [facility]; Protocol Last Admin: 03/27/22 19:39 Dose: 0.4 mg Ferrous Sulfate (Ferrous Sulfate 324 Mg Tablet.Dr) 324 mg PO DAILY [facility] Last Admin: 03/28/22 08:40 Dose: 324 mg Fluticasone Propionate (Fluticasone Propionate Nasal 16 Gm [place]) 1 spray NOSTRIL-B BID [facility] Last Admin: 03/28/22 08:40 Dose: 1 spray Folic Acid (Folic Acid 1 Mg Tablet) 1 mg PO DAILY [facility] Last Admin: 03/28/22 08:39 Dose: 1 mg Gabapentin (Gabapentin 600 Mg Tablet) 600 mg PO TID [facility] Last Admin: 03/28/22 08:39 Dose: 600 mg Hydrochlorothiazide (Hydrochlorothiazide 25 Mg Tablet) 25 mg PO DAILY [facility]; Protocol Last Admin: 03/28/22 08:39 Dose: 25 mg Hydroxyzine HCl (Hydroxyzine Hcl 50 Mg Tablet) 50 mg PO TID PRN PRN Reason: anxiety/insomnia Last Admin: 03/27/22 14:19 Dose: 50 mg Lurasidone HCl (Lurasidone Hcl 40 Mg Tablet) 120 mg PO BEDTIME [facility] Last Admin: 03/27/22 19:38 Dose: 120 mg Magnesium Hydroxide (Milk Of Magnesia 30 Ml Oral.Susp) 30 ml PO DAILY PRN PRN Reason: Constipation Metformin HCl (Metformin Hcl 500 Mg Tablet) 500 mg PO BID [facility] Last Admin: 03/28/22 08:39 Dose: 500 mg Methadone HCl (Methadone Hcl 20 Mg/2 Ml Oral.Conc) 180 mg PO DAILY [facility] Last Admin: 03/28/22 08:43 Dose: 180 mg Multivitamins/Vitamin C (Multivitamin Tablet) 1 tab PO DAILY [facility] Last Admin: 03/28/22 08:40 Dose: 1 tab Nicotine Polacrilex (Nicotine Polacrilex Lozenge 2 Mg Lozenge) 2 mg BUCCAL Q2H PRN PRN Reason: Nicotine Cravings Omeprazole (Omeprazole 20 Mg Capsule.Dr) 20 mg PO BID@0630,1630 [facility] Last Admin: 03/28/22 08:39 Dose: 20 mg Psyllium Hydrophilic Mucilloid (Psyllium Seed 3.4 Gm Powd.Pack) 3.4 gm PO DAILY [facility] Last Admin: 03/28/22 08:41 Dose: Not Given Pyridoxine HCl (Pyridoxine Hcl (Vitamin B6) 50 Mg Tablet) 50 mg PO DAILY [facility] Last Admin: 03/28/22 08:39 Dose: 50 mg Sertraline HCl (Sertraline Hcl 25 Mg Tablet) 125 mg PO DAILY [facility] Last Admin: 03/28/22 08:40 Dose: 125 mg Trazodone HCl (Trazodone Hcl 50 Mg Tablet) 50 mg PO BEDTIME PRN PRN Reason: Insomnia Last Admin: 03/27/22 19:41 Dose: 50 mg Trimethoprim/Sulfamethoxazole (Sulfamethox/Trimeth 800/160 Tablet) 1 tab PO BID@0800,2000 [facility] Last Admin: 03/28/22 08:40 Dose: 1 tab Venlafaxine HCl (Venlafaxine Hcl Er 37.5 Mg Cap.Er.24h) 37.5 mg PO DAILY [facility] Last Admin: 03/28/22 08:39 Dose: 37.5 mg Allergies Allergies Allergy/AdvReac Type Severity Reaction Status Date / Time meperidine [From Demerol] Allergy Mild UNKNOWN Verified 08/31/21 06:57 Penicillins Allergy Mild UNKNOWN Verified 08/31/21 06:57 propoxyphene Allergy Mild UNKNOWN Verified 08/31/21 06:57 [From Darvocet-N 50] Sulfa (Sulfonamide Allergy Mild UNKNOWN, Verified 08/31/21 06:57 Antibiotics) HIVES penicillin V Allergy Unknown SWELLING Verified 08/31/21 06:57 Assessment & Plan Assessment & Plan (1) PTSD (post-traumatic stress disorder): Status: Acute Code(s): F43.10 - Post-traumatic stress disorder, unspecified (2) Opioid use disorder, moderate, in early remission: Status: Acute Code(s): F11.21 - Opioid dependence, in remission (3) Bipolar 2 disorder, major depressive episode: Status: Acute Code(s): F31.81 - Bipolar II disorder Plan Increase Sertraline to 125 mg daily Ferrous sulfate 325 mg daily 03/25/22: Continue current regime. 03/27/22: Remains with depressive sx. Begin Effexor XR 37.5 mg. a.m. 03/28/22: Continue current treatment plan Patient educated on: therapeutic strategies Informed Consent: understands Reason for contiued inpatient stay Substantial Risk for: harm to self and rapid decompensation Time Spent With Patient Time: Total time managing care of this patient today __25__ minutes.
[2022-03-28] MEDS: Acetaminophen 325 MG TABLET 650 MG PO ×2 (14:16→20:44)
[2022-03-28] MEDS: chlorproMAZINE HCl 25 MG TABLET PO (14:17)
[2022-03-28] MEDS: hydrOXYzine HCL 50 MG TABLET PO ×2 (14:17→20:44)
[2022-03-28 18:08] VITALS: BP 137/65
[2022-03-28] MEDS: clonazePAM 1 MG TABLET PO (18:10)
[2022-03-28] MEDS: chlorproMAZINE HCl 25 MG TABLET 50 MG PO (20:39)
[2022-03-28] MEDS: Lurasidone HCl 40 MG TABLET 120 MG PO (20:40)
[2022-03-28] MEDS: traZODone HCL 50 MG TABLET PO (20:44)
[2022-03-29 06:00] VITALS: BP 124/72; PULSE 110; RESP 18
[2022-03-29] MEDS: methADONE HCl 20 MG/2 ML ORAL.CONC 180 MG PO (08:10)
[2022-03-29] MEDS: buPROPion HCl XL 300 MG TAB.ER.24H PO (08:11)
[2022-03-29] MEDS: buPROPion HCl XL 150 MG TAB.ER.24H PO (08:11)
[2022-03-29] MEDS: Acetaminophen 325 MG TABLET 650 MG PO ×2 (08:11→15:21)
[2022-03-29] MEDS: Gabapentin 600 MG TABLET PO ×3 (08:11→20:49)
[2022-03-29] MEDS: Sulfamethox/Trimeth 800/160 TABLET 1 TAB PO ×2 (08:12→20:50)
[2022-03-29] MEDS: Omeprazole 20 MG CAPSULE.DR PO ×2 (08:12→16:45)
[2022-03-29] MEDS: Folic Acid 1 MG TABLET PO (08:12)
[2022-03-29] MEDS: Multivitamin TABLET 1 TAB PO (08:12)
[2022-03-29] MEDS: Ferrous Sulfate 324 MG TABLET.DR PO (08:12)
[2022-03-29] MEDS: cloNIDine HCL 0.2 MG TABLET PO ×3 (08:12→18:22)
[2022-03-29] MEDS: Pyridoxine HCl (Vitamin B6) 50 MG TABLET PO (08:12)
[2022-03-29] MEDS: Sertraline HCL 25 MG TABLET 125 MG PO (08:12)
[2022-03-29] MEDS: metFORMIN HCl 500 MG TABLET PO ×2 (08:12→20:51)
[2022-03-29] MEDS: Venlafaxine HCl ER 37.5 MG CAP.ER.24H PO (08:12)
[2022-03-29] MEDS: clonazePAM 1 MG TABLET PO ×2 (08:12→18:22)
[2022-03-29] MEDS: hydroCHLOROthiazide 25 MG TABLET PO (08:12)
--- NOTE | 2022-03-29 08:54 | HO.PSYCHPN ---
Subjective Subjective Date of Service: 03/29/22 Reason For Visit: SI Subjective Notes: Conditional Voluntary Healthcare Proxy: No Guardianship: No Medical Problems Affecting Mental Status: No Interim History: Continues with SI and worry that she will need to discharge to the street. R Foot pain persists-discussed regular use of compression stockings Pt reviewed clonidine order and requested changes Medication Compliance: Yes Side effects from medications: No Attending Groups: Intermittent Review of Systems Acute medical concerns: No Medical Review of Systems: unchanged Mental Status Exam Mental Status Exam Patient Appearance: Appropriate Patient Orientation: Person, Place, Time and Situation Level of Consciousness: Alert Patient Behavior: Appropriate, Talkative, Cooperative and Good Eye Contact Mood Description: Constricted and Depressed Affect Description: Constricted and Flat Patient Cognition Impaired: No Ability to Follow Directions: Good Speech Pattern: Spontaneous Speech Memory Description: Intact Hallucinations: None Delusions: Not Present Thought Process: Goal Oriented Thought Content: positive for Goal Oriented and positive for Suicidal Ideation (passive) Depressive Symptoms: Increased Anxiety, Hopelessness, Isolating-Friends/Family, Increased Fatigue, Thoughts of /Suicide (passive), Loss of Energy and Difficulty Concentrating Judgement: Fair Diagnostics Vital Signs (24Hr): Vital Signs - 24 hr 03/28/22 09:34 03/28/22 18:08 03/29/22 06:00 Temperature 97.6 F Pulse Rate 131 H 110 H Respiratory Rate 20 18 Blood Pressure 126/71 137/65 124/72 Pulse Oximetry 92 Oxygen Delivery Method Room Air BMI result Body Mass Index 52.5 Labs 03/13/22 20:49 03/26/22 08:19 Medications Medications Current Medications Acetaminophen (Acetaminophen 325 Mg Tablet) 650 mg PO Q6H PRN PRN Reason: Headache/Pain Mild Scale (1-3) Last Admin: 03/29/22 08:11 Dose: 650 mg Al Hydroxide/Mg Hydroxide (Magnesium Hydrox/Alum Hydrox 30 Ml Oral.Susp) 30 ml PO Q6H PRN PRN Reason: Heartburn/Nausea Bupropion HCl (Bupropion Hcl Xl 150 Mg Tab.Er.24h) 150 mg PO DAILY [facility] Last Admin: 03/29/22 08:11 Dose: 150 mg Bupropion HCl (Bupropion Hcl Xl 300 Mg Tab.Er.24h) 300 mg PO DAILY [facility] Last Admin: 03/29/22 08:11 Dose: 300 mg Chlorpromazine HCl (Chlorpromazine Hcl 25 Mg Tablet) 50 mg PO BEDTIME [facility] Last Admin: 03/28/22 20:39 Dose: 50 mg Chlorpromazine HCl (Chlorpromazine Hcl 25 Mg Tablet) 50 mg PO BEDTIME PRN PRN Reason: continued insomnia Last Admin: 03/26/22 22:33 Dose: 50 mg Chlorpromazine HCl (Chlorpromazine Hcl 25 Mg Tablet) 25 mg PO BID PRN PRN Reason: anxiety Last Admin: 03/28/22 14:17 Dose: 25 mg Clonazepam (Clonazepam 1 Mg Tablet) 1 mg PO BID PRN PRN Reason: Anxiety Last Admin: 03/29/22 08:12 Dose: 1 mg Clonidine HCl (Clonidine Hcl 0.2 Mg Tablet) 0.2 mg PO TID PRN; Protocol PRN Reason: Anxiety Last Admin: 03/29/22 08:12 Dose: 0.2 mg Clonidine HCl (Clonidine Hcl 0.2 Mg Tablet) 0.4 mg PO BEDTIME [facility]; Protocol Last Admin: 03/28/22 20:40 Dose: Not Given Ferrous Sulfate (Ferrous Sulfate 324 Mg Tablet.Dr) 324 mg PO DAILY [facility] Last Admin: 03/29/22 08:12 Dose: 324 mg Fluticasone Propionate (Fluticasone Propionate Nasal 16 Gm [place]) 1 spray NOSTRIL-B BID [facility] Last Admin: 03/29/22 08:15 Dose: Not Given Folic Acid (Folic Acid 1 Mg Tablet) 1 mg PO DAILY [facility] Last Admin: 03/29/22 08:12 Dose: 1 mg Gabapentin (Gabapentin 600 Mg Tablet) 600 mg PO TID [facility] Last Admin: 03/29/22 08:11 Dose: 600 mg Hydrochlorothiazide (Hydrochlorothiazide 25 Mg Tablet) 25 mg PO DAILY [facility]; Protocol Last Admin: 03/29/22 08:12 Dose: 25 mg Hydroxyzine HCl (Hydroxyzine Hcl 50 Mg Tablet) 50 mg PO TID PRN PRN Reason: anxiety/insomnia Last Admin: 03/28/22 20:44 Dose: 50 mg Lurasidone HCl (Lurasidone Hcl 40 Mg Tablet) 120 mg PO BEDTIME [facility] Last Admin: 03/28/22 20:40 Dose: 120 mg Magnesium Hydroxide (Milk Of Magnesia 30 Ml Oral.Susp) 30 ml PO DAILY PRN PRN Reason: Constipation Metformin HCl (Metformin Hcl 500 Mg Tablet) 500 mg PO BID [facility] Last Admin: 03/29/22 08:12 Dose: 500 mg Methadone HCl (Methadone Hcl 20 Mg/2 Ml Oral.Conc) 180 mg PO DAILY [facility] Last Admin: 03/29/22 08:10 Dose: 180 mg Multivitamins/Vitamin C (Multivitamin Tablet) 1 tab PO DAILY [facility] Last Admin: 03/29/22 08:12 Dose: 1 tab Nicotine Polacrilex (Nicotine Polacrilex Lozenge 2 Mg Lozenge) 2 mg BUCCAL Q2H PRN PRN Reason: Nicotine Cravings Omeprazole (Omeprazole 20 Mg Capsule.Dr) 20 mg PO BID@0630,1630 [facility] Last Admin: 03/29/22 08:12 Dose: 20 mg Psyllium Hydrophilic Mucilloid (Psyllium Seed 3.4 Gm Powd.Pack) 3.4 gm PO DAILY [facility] Last Admin: 03/29/22 08:15 Dose: Not Given Pyridoxine HCl (Pyridoxine Hcl (Vitamin B6) 50 Mg Tablet) 50 mg PO DAILY [facility] Last Admin: 03/29/22 08:12 Dose: 50 mg Sertraline HCl (Sertraline Hcl 25 Mg Tablet) 125 mg PO DAILY [facility] Last Admin: 03/29/22 08:12 Dose: 125 mg Trazodone HCl (Trazodone Hcl 50 Mg Tablet) 50 mg PO BEDTIME PRN PRN Reason: Insomnia Last Admin: 03/28/22 20:44 Dose: 50 mg Trimethoprim/Sulfamethoxazole (Sulfamethox/Trimeth 800/160 Tablet) 1 tab PO BID@0800,2000 [facility] Last Admin: 03/29/22 08:12 Dose: 1 tab Venlafaxine HCl (Venlafaxine Hcl Er 37.5 Mg Cap.Er.24h) 37.5 mg PO DAILY [facility] Last Admin: 03/29/22 08:12 Dose: 37.5 mg Allergies Allergies Allergy/AdvReac Type Severity Reaction Status Date / Time meperidine [From Demerol] Allergy Mild UNKNOWN Verified 08/31/21 06:57 Penicillins Allergy Mild UNKNOWN Verified 08/31/21 06:57 propoxyphene Allergy Mild UNKNOWN Verified 08/31/21 06:57 [From Darvocet-N 50] Sulfa (Sulfonamide Allergy Mild UNKNOWN, Verified 08/31/21 06:57 Antibiotics) HIVES penicillin V Allergy Unknown SWELLING Verified 08/31/21 06:57 Assessment & Plan Assessment & Plan (1) PTSD (post-traumatic stress disorder): Status: Acute Code(s): F43.10 - Post-traumatic stress disorder, unspecified (2) Opioid use disorder, moderate, in early remission: Status: Acute Code(s): F11.21 - Opioid dependence, in remission (3) Bipolar 2 disorder, major depressive episode: Status: Acute Code(s): F31.81 - Bipolar II disorder Plan Increase Sertraline to 125 mg daily Ferrous sulfate 325 mg daily 03/25/22: Continue current regime. 03/27/22: Remains with depressive sx. Begin Effexor XR 37.5 mg. a.m. 03/28/22: Continue current treatment plan 03/29/22: Change clonidine prn to q 4 hours in trial Patient educated on: medication risk/benefits and therapeutic strategies Informed Consent: further education needed Reason for contiued inpatient stay Substantial Risk for: harm to self, inability to function and rapid decompensation Time Spent With Patient Time: Total time managing care of this patient today ___20_ minutes.
[2022-03-29] MEDS: chlorproMAZINE HCl 25 MG TABLET PO (13:36)
[2022-03-29 13:37] VITALS: BP 134/64; PULSE 126
[2022-03-29] MEDS: hydrOXYzine HCL 50 MG TABLET PO ×2 (15:21→20:50)
[2022-03-29 18:00] VITALS: BP 111/82; PULSE 107; RESP 18; TEMP 36.8; O2SAT 98
[2022-03-29] MEDS: chlorproMAZINE HCl 25 MG TABLET 50 MG PO (20:50)
[2022-03-29] MEDS: Fluticasone Propionate Nasal 16 GM SPRAY 1 SPRAY NOSTRIL-B (20:50)
[2022-03-29] MEDS: Lurasidone HCl 40 MG TABLET 120 MG PO (20:51)
[2022-03-29] MEDS: traZODone HCL 50 MG TABLET PO (20:51)
[2022-03-30 06:00] VITALS: BP 118/57; PULSE 109; RESP 16; TEMP 36.2; O2SAT 95
[2022-03-30] MEDS: methADONE HCl 20 MG/2 ML ORAL.CONC 180 MG PO (08:17)
[2022-03-30] MEDS: Sertraline HCL 25 MG TABLET 125 MG PO (08:18)
[2022-03-30] MEDS: buPROPion HCl XL 150 MG TAB.ER.24H PO (08:18)
[2022-03-30] MEDS: Multivitamin TABLET 1 TAB PO (08:18)
[2022-03-30] MEDS: Venlafaxine HCl ER 37.5 MG CAP.ER.24H PO (08:18)
[2022-03-30] MEDS: Omeprazole 20 MG CAPSULE.DR PO ×2 (08:18→16:33)
[2022-03-30] MEDS: Gabapentin 600 MG TABLET PO ×3 (08:18→20:12)
[2022-03-30] MEDS: Folic Acid 1 MG TABLET PO (08:19)
[2022-03-30] MEDS: Pyridoxine HCl (Vitamin B6) 50 MG TABLET PO (08:19)
[2022-03-30] MEDS: Sulfamethox/Trimeth 800/160 TABLET 1 TAB PO ×2 (08:19→18:30)
[2022-03-30] MEDS: Ferrous Sulfate 324 MG TABLET.DR PO (08:19)
[2022-03-30] MEDS: hydroCHLOROthiazide 25 MG TABLET PO (08:19)
[2022-03-30] MEDS: buPROPion HCl XL 300 MG TAB.ER.24H PO (08:19)
[2022-03-30] MEDS: metFORMIN HCl 500 MG TABLET PO ×2 (08:19→20:12)
[2022-03-30] MEDS: hydrOXYzine HCL 50 MG TABLET PO ×2 (08:53→16:44)
[2022-03-30] MEDS: chlorproMAZINE HCl 25 MG TABLET PO (08:53)
[2022-03-30] MEDS: Acetaminophen 325 MG TABLET 650 MG PO ×2 (08:54→18:31)
[2022-03-30 12:04] VITALS: BP 124/73; PULSE 126
[2022-03-30] MEDS: clonazePAM 1 MG TABLET PO ×2 (12:04→18:34)
[2022-03-30] MEDS: cloNIDine HCL 0.2 MG TABLET PO ×2 (12:04→18:30)
--- NOTE | 2022-03-30 14:25 | PC.NURSE ---
refused weight today.
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
[2022-03-30 17:44] VITALS: BP 117/84; PULSE 109; RESP 16; TEMP 36.4; O2SAT 96
[2022-03-30] MEDS: Lurasidone HCl 40 MG TABLET 120 MG PO (20:12)
[2022-03-30] MEDS: cloNIDine HCL 0.2 MG TABLET 0.4 MG PO (20:12)
[2022-03-30] MEDS: chlorproMAZINE HCl 25 MG TABLET 50 MG PO ×2 (20:13→23:13)
[2022-03-30] MEDS: traZODone HCL 50 MG TABLET PO (20:20)
[2022-03-31 06:00] VITALS: BP 130/77; PULSE 120; RESP 14; TEMP 36.6; O2SAT 99
[2022-03-31] MEDS: Omeprazole 20 MG CAPSULE.DR PO ×2 (06:28→17:29)
[2022-03-31] MEDS: methADONE HCl 20 MG/2 ML ORAL.CONC 180 MG PO (08:19)
[2022-03-31] MEDS: metFORMIN HCl 500 MG TABLET PO ×2 (08:20→22:26)
[2022-03-31] MEDS: Sulfamethox/Trimeth 800/160 TABLET 1 TAB PO ×2 (08:20→22:26)
[2022-03-31] MEDS: Folic Acid 1 MG TABLET PO (08:20)
[2022-03-31] MEDS: Gabapentin 600 MG TABLET PO ×2 (08:20→14:11)
[2022-03-31] MEDS: hydroCHLOROthiazide 25 MG TABLET PO (08:20)
[2022-03-31] MEDS: buPROPion HCl XL 150 MG TAB.ER.24H PO (08:20)
[2022-03-31] MEDS: Sertraline HCL 100 MG TABLET PO (08:20)
[2022-03-31] MEDS: buPROPion HCl XL 300 MG TAB.ER.24H PO (08:20)
[2022-03-31] MEDS: Ferrous Sulfate 324 MG TABLET.DR PO (08:20)
[2022-03-31] MEDS: Venlafaxine HCl ER 75 MG CAP.ER.24H PO (08:21)
[2022-03-31] MEDS: Multivitamin TABLET 1 TAB PO (08:21)
[2022-03-31] MEDS: Pyridoxine HCl (Vitamin B6) 50 MG TABLET PO (08:21)
[2022-03-31] MEDS: clonazePAM 1 MG TABLET PO ×2 (11:14→18:01)
[2022-03-31] MEDS: cloNIDine HCL 0.2 MG TABLET PO ×2 (11:15→18:01)
[2022-03-31] MEDS: hydrOXYzine HCL 50 MG TABLET PO ×2 (14:40→22:26)
[2022-03-31] MEDS: chlorproMAZINE HCl 25 MG TABLET PO (14:41)
--- NOTE | 2022-03-31 16:36 | HO.PSYCHPN ---
Subjective Subjective Date of Service: 03/31/22 Reason For Visit: SI Subjective Notes: Conditional Voluntary Healthcare Proxy: No Guardianship: No Medical Problems Affecting Mental Status: No Interim History: Reports she is dropping items due to edema in her hands. Reports depressive sx, denies SI today Planning to contact DCF to discuss visitation in [place] if she is accepted to residential program in that area. Tolerating Effexor XR titration. Medication Compliance: Yes Side effects from medications: Yes (+edema) Attending Groups: Intermittent Review of Systems Acute medical concerns: No Medical Review of Systems: unchanged Mental Status Exam Mental Status Exam Patient Appearance: Appropriate Patient Orientation: Person, Place, Time and Situation Level of Consciousness: Alert Patient Behavior: Appropriate, Talkative, Cooperative and Good Eye Contact Mood Description: Constricted and Depressed Affect Description: Constricted and Flat Patient Cognition Impaired: No Ability to Follow Directions: Good Speech Pattern: Spontaneous Speech Memory Description: Intact Hallucinations: None Delusions: Not Present Thought Process: Goal Oriented Thought Content: positive for Goal Oriented and positive for Suicidal Ideation (denies) Depressive Symptoms: Increased Anxiety, Hopelessness, Isolating-Friends/Family, Increased Fatigue, Thoughts of /Suicide (denies), Loss of Energy and Difficulty Concentrating Judgement: Fair Diagnostics Vital Signs (24Hr): Vital Signs - 24 hr 03/30/22 17:44 03/31/22 06:00 Temperature 97.6 F 97.9 F Pulse Rate 109 H 120 H Respiratory Rate 16 14 Blood Pressure 117/84 130/77 Pulse Oximetry 96 99 Oxygen Delivery Method Room Air Room Air BMI result Body Mass Index 52.5 Labs 03/13/22 20:49 03/26/22 08:19 Medications Medications Current Medications Acetaminophen (Acetaminophen 325 Mg Tablet) 650 mg PO Q6H PRN PRN Reason: Headache/Pain Mild Scale (1-3) Last Admin: 03/30/22 18:31 Dose: 650 mg Al Hydroxide/Mg Hydroxide (Magnesium Hydrox/Alum Hydrox 30 Ml Oral.Susp) 30 ml PO Q6H PRN PRN Reason: Heartburn/Nausea Bupropion HCl (Bupropion Hcl Xl 150 Mg Tab.Er.24h) 150 mg PO DAILY [facility] Last Admin: 03/31/22 08:20 Dose: 150 mg Bupropion HCl (Bupropion Hcl Xl 300 Mg Tab.Er.24h) 300 mg PO DAILY [facility] Last Admin: 03/31/22 08:20 Dose: 300 mg Chlorpromazine HCl (Chlorpromazine Hcl 25 Mg Tablet) 50 mg PO BEDTIME [facility] Last Admin: 03/30/22 20:13 Dose: 50 mg Chlorpromazine HCl (Chlorpromazine Hcl 25 Mg Tablet) 50 mg PO BEDTIME PRN PRN Reason: continued insomnia Last Admin: 03/30/22 23:13 Dose: 50 mg Chlorpromazine HCl (Chlorpromazine Hcl 25 Mg Tablet) 25 mg PO BID PRN PRN Reason: anxiety Last Admin: 03/31/22 14:41 Dose: 25 mg Clonazepam (Clonazepam 1 Mg Tablet) 1 mg PO BID PRN PRN Reason: Anxiety Last Admin: 03/31/22 11:14 Dose: 1 mg Clonidine HCl (Clonidine Hcl 0.2 Mg Tablet) 0.4 mg PO BEDTIME [facility]; Protocol Last Admin: 03/30/22 20:12 Dose: 0.4 mg Clonidine HCl (Clonidine Hcl 0.2 Mg Tablet) 0.2 mg PO Q4H PRN; Protocol PRN Reason: Anxiety Last Admin: 03/31/22 11:15 Dose: 0.2 mg Ferrous Sulfate (Ferrous Sulfate 324 Mg Tablet.Dr) 324 mg PO DAILY [facility] Last Admin: 03/31/22 08:20 Dose: 324 mg Fluticasone Propionate (Fluticasone Propionate Nasal 16 Gm [place]) 1 spray NOSTRIL-B BID [facility] Last Admin: 03/31/22 09:23 Dose: Not Given Folic Acid (Folic Acid 1 Mg Tablet) 1 mg PO DAILY [facility] Last Admin: 03/31/22 08:20 Dose: 1 mg Gabapentin (Gabapentin 600 Mg Tablet) 600 mg PO TID [facility] Last Admin: 03/31/22 14:11 Dose: 600 mg Hydrochlorothiazide (Hydrochlorothiazide 25 Mg Tablet) 25 mg PO DAILY [facility]; Protocol Last Admin: 03/31/22 08:20 Dose: 25 mg Hydroxyzine HCl (Hydroxyzine Hcl 50 Mg Tablet) 50 mg PO TID PRN PRN Reason: anxiety/insomnia Last Admin: 03/31/22 14:40 Dose: 50 mg Lurasidone HCl (Lurasidone Hcl 40 Mg Tablet) 120 mg PO BEDTIME [facility] Last Admin: 03/30/22 20:12 Dose: 120 mg Magnesium Hydroxide (Milk Of Magnesia 30 Ml Oral.Susp) 30 ml PO DAILY PRN PRN Reason: Constipation Metformin HCl (Metformin Hcl 500 Mg Tablet) 500 mg PO BID [facility] Last Admin: 03/31/22 08:20 Dose: 500 mg Methadone HCl (Methadone Hcl 20 Mg/2 Ml Oral.Conc) 180 mg PO DAILY [facility] Last Admin: 03/31/22 08:19 Dose: 180 mg Multivitamins/Vitamin C (Multivitamin Tablet) 1 tab PO DAILY [facility] Last Admin: 03/31/22 08:21 Dose: 1 tab Nicotine Polacrilex (Nicotine Polacrilex Lozenge 2 Mg Lozenge) 2 mg BUCCAL Q2H PRN PRN Reason: Nicotine Cravings Omeprazole (Omeprazole 20 Mg Capsule.Dr) 20 mg PO BID@0630,1630 [facility] Last Admin: 03/31/22 06:28 Dose: 20 mg Psyllium Hydrophilic Mucilloid (Psyllium Seed 3.4 Gm Powd.Pack) 3.4 gm PO DAILY [facility] Last Admin: 03/31/22 09:23 Dose: Not Given Pyridoxine HCl (Pyridoxine Hcl (Vitamin B6) 50 Mg Tablet) 50 mg PO DAILY [facility] Last Admin: 03/31/22 08:21 Dose: 50 mg Sertraline HCl (Sertraline Hcl 100 Mg Tablet) 100 mg PO DAILY [facility] Last Admin: 03/31/22 08:20 Dose: 100 mg Trazodone HCl (Trazodone Hcl 50 Mg Tablet) 50 mg PO BEDTIME PRN PRN Reason: Insomnia Last Admin: 03/30/22 20:20 Dose: 50 mg Trimethoprim/Sulfamethoxazole (Sulfamethox/Trimeth 800/160 Tablet) 1 tab PO BID@0800,1999 [facility] Last Admin: 03/31/22 08:20 Dose: 1 tab Venlafaxine HCl (Venlafaxine Hcl Er 75 Mg Cap.Er.24h) 75 mg PO DAILY [facility] Last Admin: 03/31/22 08:21 Dose: 75 mg Allergies Allergies Allergy/AdvReac Type Severity Reaction Status Date / Time meperidine [From Demerol] Allergy Mild UNKNOWN Verified 08/31/21 06:57 Penicillins Allergy Mild UNKNOWN Verified 08/31/21 06:57 propoxyphene Allergy Mild UNKNOWN Verified 08/31/21 06:57 [From Darvocet-N 50] Sulfa (Sulfonamide Allergy Mild UNKNOWN, Verified 08/31/21 06:57 Antibiotics) HIVES penicillin V Allergy Unknown SWELLING Verified 08/31/21 06:57 Assessment & Plan Assessment & Plan (1) PTSD (post-traumatic stress disorder): Status: Acute Code(s): F43.10 - Post-traumatic stress disorder, unspecified (2) Opioid use disorder, moderate, in early remission: Status: Acute Code(s): F11.21 - Opioid dependence, in remission (3) Bipolar 2 disorder, major depressive episode: Status: Acute Code(s): F31.81 - Bipolar II disorder Plan Increase Sertraline to 125 mg daily Ferrous sulfate 325 mg daily 03/25/22: Continue current regime. 03/27/22: Remains with depressive sx. Begin Effexor XR 37.5 mg. a.m. 03/28/22: Continue current treatment plan 03/30/22: Increase Effexor XR to 75 mg a.m. Decrease Sertraline to 100 mg a.m. 03/31/22: Decrease Gabapentin to 300 mg tid (to hopefully address sx of edema in hands) Patient educated on: medication risk/benefits Informed Consent: further education needed Reason for contiued inpatient stay Substantial Risk for: harm to self, inability to function and rapid decompensation Time Spent With Patient Time: Total time managing care of this patient today 20 minutes.
[2022-03-31 17:55] VITALS: BP 131/70; PULSE 127; RESP 14; TEMP 36.3
[2022-03-31] MEDS: Acetaminophen 325 MG TABLET 650 MG PO (18:01)
[2022-03-31] MEDS: traZODone HCL 50 MG TABLET PO (22:25)
[2022-03-31] MEDS: Lurasidone HCl 40 MG TABLET 120 MG PO (22:25)
[2022-03-31] MEDS: chlorproMAZINE HCl 25 MG TABLET 50 MG PO (22:26)
[2022-03-31] MEDS: cloNIDine HCL 0.2 MG TABLET 0.4 MG PO (22:26)
[2022-03-31] MEDS: Gabapentin 600 MG TABLET 300 MG PO (22:26)
[2022-04-01] MEDS: Gabapentin 600 MG TABLET 300 MG PO ×3 (08:28→22:46)
[2022-04-01] MEDS: Sulfamethox/Trimeth 800/160 TABLET 1 TAB PO ×2 (08:29→22:45)
[2022-04-01] MEDS: Multivitamin TABLET 1 TAB PO (08:29)
[2022-04-01] MEDS: Sertraline HCL 100 MG TABLET PO (08:29)
[2022-04-01] MEDS: Venlafaxine HCl ER 75 MG CAP.ER.24H PO (08:29)
[2022-04-01] MEDS: buPROPion HCl XL 300 MG TAB.ER.24H PO (08:29)
[2022-04-01] MEDS: hydroCHLOROthiazide 25 MG TABLET PO (08:29)
[2022-04-01] MEDS: Omeprazole 20 MG CAPSULE.DR PO ×2 (08:30→15:37)
[2022-04-01] MEDS: buPROPion HCl XL 150 MG TAB.ER.24H PO (08:30)
[2022-04-01] MEDS: methADONE HCl 20 MG/2 ML ORAL.CONC 180 MG PO (08:30)
[2022-04-01] MEDS: Pyridoxine HCl (Vitamin B6) 50 MG TABLET PO (08:30)
[2022-04-01] MEDS: Folic Acid 1 MG TABLET PO (08:30)
[2022-04-01] MEDS: Ferrous Sulfate 324 MG TABLET.DR PO (08:30)
[2022-04-01] MEDS: metFORMIN HCl 500 MG TABLET PO ×2 (08:30→22:45)
[2022-04-01 09:00] VITALS: BP 118/58; PULSE 78; RESP 18; TEMP 36.8; O2SAT 96
[2022-04-01] MEDS: Acetaminophen 325 MG TABLET 650 MG PO ×2 (09:00→16:35)
[2022-04-01] MEDS: chlorproMAZINE HCl 25 MG TABLET PO (11:04)
[2022-04-01] MEDS: hydrOXYzine HCL 50 MG TABLET PO (11:04)
--- NOTE | 2022-04-01 11:50 | P.PNPSI_ITS ---
Subjective Subjective Date of Service: 04/01/22 Reason For Visit: SI Interim History: Patient seen and discussed. Patient continues to feel depressed and anxious. She is isolative. She is not attending groups. She has a flat affect per report. She thinks she may be having some side effects from the Effexor including abdominal pain and headaches. Mild/moderate and says she would like to continue Effexor XR titration and see if the SE subside. She reports her mood is OK Review of Systems Review of Systems Bilateral swelling in hands and legs Lower left-leg pain with abulation Chronic constipation No lightheadedness, dizziness Denies nausea, vomiting Chest pain/pressure, palpitations Yes all other systems are reviewed and are negative Constitutional: Reports no additional constitutional complaints, Reports fatigue and Reports lethargy Eyes: Reports no additional eye complaints Cardiovascular: Reports no additional cardiovascular complaints, Denies chest pain, Reports chest pain at rest, Denies chest pain with activity, Denies epigastric discomfort, Denies pedal edema, Denies lightheadedness, Denies Loss of Consciousness, Denies radiating jaw, neck or arm pain, Denies palpitations, Reports dyspnea on exertion and Denies orthopnea Respiratory: Reports no additional respiratory complaints, Denies chest congestion, Denies cough and Reports dyspnea on exertion Gastrointestinal: Reports no additional gastrointestinal complaints Musculoskeletal: Reports no additional musculoskeletal complaints Skin/Breast: Reports system reviewed and no additional complaints, except as docu Reports system reviewed and no additional complaints, except as documented Psychiatric: Reports no additional psychiatric complaints Endocrine: Reports no additional endocrine complaints, Reports fatigue and Denies palpitations Hematologic/Lymphatic: Reports no additional hematologic/lymphatic complaints Mental Status Exam Mental Status Exam Narrative: Pt is alert and oriented; behavior is cooperative; anxious; obese; dressed in casual attire with adequate hygiene; mood is described as depressed and affect congruent, anxious; eye contact appropriate; Speech is normal rate, volume and prosody and not pressured; no psychomotor agitation/retardation present; thought process is organized and goal directed; Thought content is on hopelessness about turning her life around; treatment; otherwise pertinent to relevant topics and without any delusional content, paranoid ideations or grandiosity; positive for SI; no HI. There is no evidence of perceptual disturbance denies AVH Patients insight and judgment are impaired Patient Appearance: Appropriate Patient Orientation: Person, Place, Time and Situation Level of Consciousness: Alert Patient Behavior: Appropriate, Talkative, Cooperative and Good Eye Contact Mood Description: Constricted and Depressed Affect Description: Constricted and Flat Patient Cognition Impaired: No Ability to Follow Directions: Good Speech Pattern: Spontaneous Speech Memory Description: Intact Diagnostics Vital Signs (24Hr): Vital Signs - 24 hr 04/01/22 09:00 04/01/22 18:00 Temperature 98.2 F 98.2 F Pulse Rate 78 111 H Respiratory Rate 18 Blood Pressure 118/58 L 134/70 Pulse Oximetry 96 95 Oxygen Delivery Method Room Air BMI result Body Mass Index 52.5 Labs 03/13/22 20:49 03/26/22 08:19 Medications Medications Current Medications Acetaminophen (Acetaminophen 325 Mg Tablet) 650 mg PO Q6H PRN PRN Reason: Headache/Pain Mild Scale (1-3) Last Admin: 04/01/22 16:35 Dose: 650 mg Al Hydroxide/Mg Hydroxide (Magnesium Hydrox/Alum Hydrox 30 Ml Oral.Susp) 30 ml PO Q6H PRN PRN Reason: Heartburn/Nausea Bupropion HCl (Bupropion Hcl Xl 150 Mg Tab.Er.24h) 150 mg PO DAILY [facility] Last Admin: 04/01/22 08:30 Dose: 150 mg Bupropion HCl (Bupropion Hcl Xl 300 Mg Tab.Er.24h) 300 mg PO DAILY [facility] Last Admin: 04/01/22 08:29 Dose: 300 mg Chlorpromazine HCl (Chlorpromazine Hcl 25 Mg Tablet) 50 mg PO BEDTIME [facility] Last Admin: 03/31/22 22:26 Dose: 50 mg Chlorpromazine HCl (Chlorpromazine Hcl 25 Mg Tablet) 50 mg PO BEDTIME PRN PRN Reason: continued insomnia Last Admin: 03/30/22 23:13 Dose: 50 mg Chlorpromazine HCl (Chlorpromazine Hcl 25 Mg Tablet) 25 mg PO BID PRN PRN Reason: anxiety Last Admin: 04/01/22 11:04 Dose: 25 mg Clonazepam (Clonazepam 1 Mg Tablet) 1 mg PO BID PRN PRN Reason: Anxiety Clonidine HCl (Clonidine Hcl 0.2 Mg Tablet) 0.4 mg PO BEDTIME [facility]; Protocol Last Admin: 03/31/22 22:26 Dose: 0.4 mg Clonidine HCl (Clonidine Hcl 0.2 Mg Tablet) 0.2 mg PO Q4H PRN; Protocol PRN Reason: Anxiety Last Admin: 04/01/22 16:35 Dose: 0.2 mg Ferrous Sulfate (Ferrous Sulfate 324 Mg Tablet.) 324 mg PO DAILY [facility] Last Admin: 04/01/22 08:30 Dose: 324 mg Fluticasone Propionate (Fluticasone Propionate Nasal 16 Gm [place]) 1 spray NOSTRIL-B BID [facility] Last Admin: 04/01/22 16:35 Dose: 1 spray Folic Acid (Folic Acid 1 Mg Tablet) 1 mg PO DAILY [facility] [place] Last Admin: 04/01/22 08:30 Dose: 1 mg Gabapentin (Gabapentin 600 Mg Tablet) 300 mg PO TID [facility] [place] Last Admin: 04/01/22 15:47 Dose: 300 mg Hydrochlorothiazide (Hydrochlorothiazide 25 Mg Tablet) 25 mg PO DAILY [facility]; Protocol Last Admin: 04/01/22 08:29 Dose: 25 mg Hydroxyzine HCl (Hydroxyzine Hcl 50 Mg Tablet) 50 mg PO TID PRN PRN Reason: anxiety/insomnia Last Admin: 04/01/22 11:04 Dose: 50 mg Ibuprofen (Ibuprofen 400 Mg Tablet) 400 mg PO Q6H PRN PRN Reason: pain not responding to Tylenol Last Admin: 04/01/22 15:37 Dose: 400 mg Lurasidone HCl (Lurasidone Hcl 40 Mg Tablet) 120 mg PO BEDTIME [facility] [place] Last Admin: 03/31/22 22:25 Dose: 120 mg Magnesium Hydroxide (Milk Of Magnesia 30 Ml Oral.Susp) 30 ml PO DAILY PRN PRN Reason: Constipation Metformin HCl (Metformin Hcl 500 Mg Tablet) 500 mg PO BID [facility] Last Admin: 04/01/22 08:30 Dose: 500 mg Methadone HCl (Methadone Hcl 20 Mg/2 Ml Oral.Conc) 180 mg PO DAILY [facility] Last Admin: 04/01/22 08:30 Dose: 180 mg Multivitamins/Vitamin C (Multivitamin Tablet) 1 tab PO DAILY [facility] Last Admin: 04/01/22 08:29 Dose: 1 tab Nicotine Polacrilex (Nicotine Polacrilex Lozenge 2 Mg Lozenge) 2 mg BUCCAL Q2H PRN PRN Reason: Nicotine Cravings Omeprazole (Omeprazole 20 Mg Capsule.) 20 mg PO BID@0630,1630 [facility] [place] Last Admin: 04/01/22 15:37 Dose: 20 mg Psyllium Hydrophilic Mucilloid (Psyllium Seed 3.4 Gm Powd.Pack) 3.4 gm PO DAILY [facility] [place] Last Admin: 04/01/22 08:35 Dose: Not Given Pyridoxine HCl (Pyridoxine Hcl (Vitamin B6) 50 Mg Tablet) 50 mg PO DAILY [facility] [place] Last Admin: 04/01/22 08:30 Dose: 50 mg Sertraline HCl (Sertraline Hcl 100 Mg Tablet) 100 mg PO DAILY [facility] [place] Last Admin: 04/01/22 08:29 Dose: 100 mg Trazodone HCl (Trazodone Hcl 50 Mg Tablet) 50 mg PO BEDTIME PRN PRN Reason: Insomnia Last Admin: 03/31/22 22:25 Dose: 50 mg Venlafaxine HCl (Venlafaxine Hcl Er 75 Mg Cap.Er.24h) 75 mg PO DAILY [facility] [place] Last Admin: 04/01/22 08:29 Dose: 75 mg Allergies Allergies Allergy/AdvReac Type Severity Reaction Status Date / Time meperidine [From Demerol] Allergy Mild UNKNOWN Verified 08/31/21 06:57 Penicillins Allergy Mild UNKNOWN Verified 08/31/21 06:57 propoxyphene Allergy Mild UNKNOWN Verified 08/31/21 06:57 [From Darvocet-N 50] Sulfa (Sulfonamide Allergy Mild UNKNOWN, Verified 08/31/21 06:57 Antibiotics) HIVES penicillin V Allergy Unknown SWELLING Verified 08/31/21 06:57 Assessment & Plan Assessment & Plan (1) PTSD (post-traumatic stress disorder): Status: Acute Code(s): F43.10 - Post-traumatic stress disorder, unspecified (2) Opioid use disorder, moderate, in early remission: Status: Acute Code(s): F11.21 - Opioid dependence, in remission (3) Bipolar 2 disorder, major depressive episode: Status: Acute Code(s): F31.81 - Bipolar II disorder Plan Increase Sertraline to 125 mg daily Ferrous sulfate 325 mg daily 03/25/22: Continue current regime. 03/27/22: Remains with depressive sx. Begin Effexor XR 37.5 mg. a.m. 03/28/22: Continue current treatment plan 03/30/22: Increase Effexor XR to 75 mg a.m. Decrease Sertraline to 100 mg a.m. 03/31/22: Decrease Gabapentin to 300 mg tid (to hopefully address sx of edema in hands) 04/01: Continue treatment plan. Reason for contiued inpatient stay Substantial Risk for: harm to self, inability to function and rapid decompensation Time Spent With Patient Time: Total time managing care of this patient today ____ minutes.
[2022-04-01] MEDS: Ibuprofen 400 MG TABLET PO (15:37)
[2022-04-01] MEDS: clonazePAM 1 MG TABLET PO ×2 (16:35→22:45)
[2022-04-01] MEDS: cloNIDine HCL 0.2 MG TABLET PO (16:35)
[2022-04-01] MEDS: Fluticasone Propionate Nasal 16 GM SPRAY 1 SPRAY NOSTRIL-B (16:35)
[2022-04-01 18:00] VITALS: BP 134/70; PULSE 111; TEMP 36.8; O2SAT 95
[2022-04-01] MEDS: chlorproMAZINE HCl 25 MG TABLET 50 MG PO (22:45)
[2022-04-01] MEDS: Lurasidone HCl 40 MG TABLET 120 MG PO (22:45)
[2022-04-01] MEDS: traZODone HCL 50 MG TABLET PO (22:46)
[2022-04-01] MEDS: cloNIDine HCL 0.2 MG TABLET 0.4 MG PO (22:47)
[2022-04-02 07:47] LABS: Creatinine Clr Calc Pharmacy 148.4; Estimated Glomerular Filt Rate > 60
[2022-04-02] MEDS: Gabapentin 600 MG TABLET 300 MG PO ×3 (08:30→20:32)
[2022-04-02] MEDS: Omeprazole 20 MG CAPSULE.DR PO ×2 (08:31→17:09)
[2022-04-02] MEDS: metFORMIN HCl 500 MG TABLET PO ×2 (08:31→20:30)
[2022-04-02] MEDS: Multivitamin TABLET 1 TAB PO (08:31)
[2022-04-02] MEDS: Sertraline HCL 100 MG TABLET PO (08:31)
[2022-04-02] MEDS: Ferrous Sulfate 324 MG TABLET.DR PO (08:31)
[2022-04-02] MEDS: Venlafaxine HCl ER 75 MG CAP.ER.24H PO (08:31)
[2022-04-02] MEDS: Pyridoxine HCl (Vitamin B6) 50 MG TABLET PO (08:31)
[2022-04-02] MEDS: Folic Acid 1 MG TABLET PO (08:31)
[2022-04-02] MEDS: hydroCHLOROthiazide 25 MG TABLET PO (08:31)
[2022-04-02] MEDS: methADONE HCl 20 MG/2 ML ORAL.CONC 180 MG PO (08:32)
[2022-04-02] MEDS: buPROPion HCl XL 150 MG TAB.ER.24H PO (08:49)
[2022-04-02 09:00] VITALS: BP 128/80; PULSE 108; RESP 18; TEMP 36.6; O2SAT 94
[2022-04-02] MEDS: buPROPion HCl XL 300 MG TAB.ER.24H PO (09:24)
[2022-04-02] MEDS: chlorproMAZINE HCl 25 MG TABLET PO (12:28)
[2022-04-02] MEDS: cloNIDine HCL 0.2 MG TABLET PO ×2 (12:29→17:12)
[2022-04-02] MEDS: Ibuprofen 400 MG TABLET PO ×2 (12:31→20:31)
--- NOTE | 2022-04-02 14:00 | P.PNPSI_ITS ---
Subjective Subjective Date of Service: 04/02/22 Reason For Visit: SI Interim History: Patient seen and discussed. Patient continues to feel depressed and anxious. She is isolative to her room most of the day. Naps on and off. Not going to groups. She has a flat affect. today didn't complain of side effects of Effexor titration. She reports her mood is depressed and anxious Review of Systems Review of Systems Bilateral swelling in hands and legs Lower left-leg pain with abulation Chronic constipation No lightheadedness, dizziness Denies nausea, vomiting Chest pain/pressure, palpitations Yes all other systems are reviewed and are negative Constitutional: Reports no additional constitutional complaints, Reports fatigue and Reports lethargy Eyes: Reports no additional eye complaints Cardiovascular: Reports no additional cardiovascular complaints, Denies chest pain, Reports chest pain at rest, Denies chest pain with activity, Denies epigastric discomfort, Denies pedal edema, Denies lightheadedness, Denies Loss of Consciousness, Denies radiating jaw, neck or arm pain, Denies palpitations, Reports dyspnea on exertion and Denies orthopnea Respiratory: Reports no additional respiratory complaints, Denies chest congestion, Denies cough and Reports dyspnea on exertion Gastrointestinal: Reports no additional gastrointestinal complaints Musculoskeletal: Reports no additional musculoskeletal complaints Skin/Breast: Reports system reviewed and no additional complaints, except as docu Reports system reviewed and no additional complaints, except as documented Psychiatric: Reports no additional psychiatric complaints Endocrine: Reports no additional endocrine complaints, Reports fatigue and Denies palpitations Hematologic/Lymphatic: Reports no additional hematologic/lymphatic complaints Mental Status Exam Mental Status Exam Narrative: Pt is alert and oriented; behavior is cooperative; anxious; obese; dressed in casual attire with adequate hygiene; mood is described as depressed and affect congruent, anxious; eye contact appropriate; Speech is normal rate, volume and prosody and not pressured; no psychomotor agitation/retardation present; thought process is organized and goal directed; Thought content is on hopelessness about turning her life around; treatment; otherwise pertinent to relevant topics and without any delusional content, paranoid ideations or grandiosity; positive for SI; no HI. There is no evidence of perceptual disturbance denies AVH Patients insight and judgment are impaired Patient Appearance: Appropriate Patient Orientation: Person, Place, Time and Situation Level of Consciousness: Alert Patient Behavior: Appropriate, Talkative, Cooperative and Good Eye Contact Mood Description: Constricted and Depressed Affect Description: Constricted and Flat Patient Cognition Impaired: No Ability to Follow Directions: Good Speech Pattern: Spontaneous Speech Memory Description: Intact Diagnostics Vital Signs (24Hr): Vital Signs - 24 hr 04/02/22 09:00 04/02/22 18:00 Temperature 97.8 F 97.2 F Pulse Rate 108 H 92 Respiratory Rate 18 18 Blood Pressure 128/80 115/66 Pulse Oximetry 94 96 Oxygen Delivery Method Room Air Room Air BMI result Body Mass Index 52.5 Labs 03/13/22 20:49 04/02/22 07:16 Labs: Laboratory Results - last 48 hr 04/02/22 07:16 Creatinine 0.68 Estim Creat Clear Calc 148.4 Estimated GFR > 60 Medications Medications Current Medications Acetaminophen (Acetaminophen 325 Mg Tablet) 650 mg PO Q6H PRN PRN Reason: Headache/Pain Mild Scale (1-3) Last Admin: 04/02/22 14:20 Dose: 650 mg Al Hydroxide/Mg Hydroxide (Magnesium Hydrox/Alum Hydrox 30 Ml Oral.Susp) 30 ml PO Q6H PRN PRN Reason: Heartburn/Nausea Bupropion HCl (Bupropion Hcl Xl 150 Mg Tab.Er.24h) 150 mg PO DAILY [facility] Last Admin: 04/02/22 08:49 Dose: 150 mg Bupropion HCl (Bupropion Hcl Xl 300 Mg Tab.Er.24h) 300 mg PO DAILY [facility] Last Admin: 04/02/22 09:24 Dose: 300 mg Chlorpromazine HCl (Chlorpromazine Hcl 25 Mg Tablet) 50 mg PO BEDTIME [facility] Last Admin: 04/02/22 20:29 Dose: 50 mg Chlorpromazine HCl (Chlorpromazine Hcl 25 Mg Tablet) 50 mg PO BEDTIME PRN PRN Reason: continued insomnia Last Admin: 03/30/22 23:13 Dose: 50 mg Chlorpromazine HCl (Chlorpromazine Hcl 25 Mg Tablet) 25 mg PO BID PRN PRN Reason: anxiety Last Admin: 04/02/22 12:28 Dose: 25 mg Clonazepam (Clonazepam 1 Mg Tablet) 1 mg PO BID PRN PRN Reason: Anxiety Last Admin: 04/02/22 20:32 Dose: 1 mg Clonidine HCl (Clonidine Hcl 0.2 Mg Tablet) 0.4 mg PO BEDTIME [facility]; Protocol Last Admin: 01/29/23 20:29 Dose: 0.4 mg Clonidine HCl (Clonidine Hcl 0.2 Mg Tablet) 0.2 mg PO Q4H PRN; Protocol PRN Reason: Anxiety Last Admin: 04/02/22 17:12 Dose: 0.2 mg Ferrous Sulfate (Ferrous Sulfate 324 Mg Tablet.) 324 mg PO DAILY [facility] Last Admin: 04/02/22 08:31 Dose: 324 mg Fluticasone Propionate (Fluticasone Propionate Nasal 16 Gm [place]) 1 spray NO STRIL-B BID [facility] Last Admin: 04/02/22 20:41 Dose: 1 spray Folic Acid (Folic Acid 1 Mg Tablet) 1 mg PO DAILY [facility] Last Admin: 04/02/22 08:31 Dose: 1 mg Gabapentin (Gabapentin 600 Mg Tablet) 300 mg PO TID [facility] Last Admin: 04/02/22 20:32 Dose: 300 mg Hydrochlorothiazide (Hydrochlorothiazide 25 Mg Tablet) 25 mg PO DAILY [facility]; Protocol Last Admin: 04/02/22 08:31 Dose: 25 mg Hydroxyzine HCl (Hydroxyzine Hcl 50 Mg Tablet) 50 mg PO TID PRN PRN Reason: anxiety/insomnia Last Admin: 04/02/22 20:33 Dose: 50 mg Ibuprofen (Ibuprofen 400 Mg Tablet) 400 mg PO Q6H PRN PRN Reason: pain not responding to Tylenol Last Admin: 04/02/22 20:31 Dose: 400 mg Lurasidone HCl (Lurasidone Hcl 40 Mg Tablet) 120 mg PO BEDTIME [facility] Last Admin: 04/02/22 20:30 Dose: 120 mg Magnesium Hydroxide (Milk Of Magnesia 30 Ml Oral.Susp) 30 ml PO DAILY PRN PRN Reason: Constipation Metformin HCl (Metformin Hcl 500 Mg Tablet) 500 mg PO BID [facility] Last Admin: 04/02/22 20:30 Dose: 500 mg Methadone HCl (Methadone Hcl 20 Mg/2 Ml Oral.Conc) 180 mg PO DAILY [facility] Last Admin: 04/02/22 08:32 Dose: 180 mg Multivitamins/Vitamin C (Multivitamin Tablet) 1 tab PO DAILY [facility] Last Admin: 04/02/22 08:31 Dose: 1 tab Nicotine Polacrilex (Nicotine Polacrilex Lozenge 2 Mg Lozenge) 2 mg BUCCAL Q2H PRN PRN Reason: Nicotine Cravings Omeprazole (Omeprazole 20 Mg Capsule.) 20 mg PO BID@0630,1630 [facility] Last Admin: 04/02/22 17:09 Dose: 20 mg Psyllium Hydrophilic Mucilloid (Psyllium Seed 3.4 Gm Powd.Pack) 3.4 gm PO DAILY [facility] Last Admin: 04/02/22 10:31 Dose: Not Given Pyridoxine HCl (Pyridoxine Hcl (Vitamin B6) 50 Mg Tablet) 50 mg PO DAILY [facility] Last Admin: 04/02/22 08:31 Dose: 50 mg Sertraline HCl (Sertraline Hcl 100 Mg Tablet) 100 mg PO DAILY [facility] Last Admin: 04/02/22 08:31 Dose: 100 mg Trazodone HCl (Trazodone Hcl 50 Mg Tablet) 50 mg PO BEDTIME PRN PRN Reason: Insomnia Last Admin: 04/02/22 20:31 Dose: 50 mg Venlafaxine HCl (Venlafaxine Hcl Er 75 Mg Cap.Er.24h) 75 mg PO DAILY [facility] Last Admin: 04/02/22 08:31 Dose: 75 mg Allergies Allergies Allergy/AdvReac Type Severity Reaction Status Date / Time meperidine [From Demerol] Allergy Mild UNKNOWN Verified 08/31/21 06:57 Penicillins Allergy Mild UNKNOWN Verified 08/31/21 06:57 propoxyphene Allergy Mild UNKNOWN Verified 08/31/21 06:57 [From Darvocet-N 50] Sulfa (Sulfonamide Allergy Mild UNKNOWN, Verified 08/31/21 06:57 Antibiotics) HIVES penicillin V Allergy Unknown SWELLING Verified 08/31/21 06:57 Assessment & Plan Assessment & Plan (1) PTSD (post-traumatic stress disorder): Status: Acute Code(s): F43.10 - Post-traumatic stress disorder, unspecified (2) Opioid use disorder, moderate, in early remission: Status: Acute Code(s): F11.21 - Opioid dependence, in remission (3) Bipolar 2 disorder, major depressive episode: Status: Acute Code(s): F31.81 - Bipolar II disorder Plan Increase Sertraline to 125 mg daily Ferrous sulfate 325 mg daily 03/25/22: Continue current regime. 03/27/22: Remains with depressive sx. Begin Effexor XR 37.5 mg. a.m. 03/28/22: Continue current treatment plan 03/30/22: Increase Effexor XR to 75 mg a.m. Decrease Sertraline to 100 mg a.m. 03/31/22: Decrease Gabapentin to 300 mg tid (to hopefully address sx of edema in hands) 04/01: Continue treatment plan. 04/02: Continue tx plan. Reason for contiued inpatient stay Substantial Risk for: harm to self, inability to function and rapid decompensation Time Spent With Patient Time: Total time managing care of this patient today ____ minutes.
[2022-04-02] MEDS: clonazePAM 1 MG TABLET PO ×2 (14:16→20:32)
[2022-04-02] MEDS: hydrOXYzine HCL 50 MG TABLET PO ×2 (14:20→20:33)
[2022-04-02] MEDS: Acetaminophen 325 MG TABLET 650 MG PO (14:20)
[2022-04-02 18:00] VITALS: BP 115/66; PULSE 92; RESP 18; TEMP 36.2; O2SAT 96
[2022-04-02] MEDS: chlorproMAZINE HCl 25 MG TABLET 50 MG PO (20:29)
[2022-04-02] MEDS: cloNIDine HCL 0.2 MG TABLET 0.4 MG PO (20:29)
[2022-04-02] MEDS: Lurasidone HCl 40 MG TABLET 120 MG PO (20:30)
[2022-04-02] MEDS: traZODone HCL 50 MG TABLET PO (20:31)
[2022-04-02] MEDS: Fluticasone Propionate Nasal 16 GM SPRAY 1 SPRAY NOSTRIL-B (20:41)
[2022-04-03] MEDS: traZODone HCL 50 MG TABLET PO ×2 (01:25→20:39)
[2022-04-03] MEDS: Omeprazole 20 MG CAPSULE.DR PO ×2 (06:49→17:34)
[2022-04-03 09:13] VITALS: BP 125/70; PULSE 109; RESP 20; TEMP 36.1; O2SAT 94
[2022-04-03] MEDS: Sertraline HCL 100 MG TABLET PO (09:14)
[2022-04-03] MEDS: buPROPion HCl XL 150 MG TAB.ER.24H PO (09:14)
[2022-04-03] MEDS: Venlafaxine HCl ER 75 MG CAP.ER.24H PO (09:14)
[2022-04-03] MEDS: Ferrous Sulfate 324 MG TABLET.DR PO (09:14)
[2022-04-03] MEDS: Gabapentin 600 MG TABLET 300 MG PO ×2 (09:15→14:34)
[2022-04-03] MEDS: buPROPion HCl XL 300 MG TAB.ER.24H PO (09:16)
[2022-04-03] MEDS: metFORMIN HCl 500 MG TABLET PO ×2 (09:16→20:38)
[2022-04-03] MEDS: hydroCHLOROthiazide 25 MG TABLET PO (09:16)
[2022-04-03] MEDS: Folic Acid 1 MG TABLET PO (09:16)
[2022-04-03] MEDS: Multivitamin TABLET 1 TAB PO (09:16)
[2022-04-03] MEDS: Pyridoxine HCl (Vitamin B6) 50 MG TABLET PO (09:16)
[2022-04-03] MEDS: methADONE HCl 20 MG/2 ML ORAL.CONC 180 MG PO (09:19)
[2022-04-03] MEDS: Ibuprofen 400 MG TABLET PO ×2 (09:55→18:54)
--- NOTE | 2022-04-03 11:38 | P.PNPSI_ITS ---
Subjective Subjective Date of Service: 04/03/22 Reason For Visit: SI Subjective Notes: Conditional Voluntary Healthcare Proxy: No Guardianship: No Medical Problems Affecting Mental Status: No Interim History: Team report pt was somewhat isolative over the weekend. Pt denies-reports she is working hard to be involved in [email or web address]. Edema continues to be reported as a sx. Discussed dietary intervention-2 gram Na diet ordered. Pt finds Venlafaxine stimulating and anxiety provoking-taper initiated. No change in edema with Gabapentin-returned to previous dosage. Pt not using compression stockings- encouraged to return to using them-education provided. Team reports the [facility] is considering pt for admission. She is pleased with this and reports having done very well there in the past. Reports overall suicidality and depressive sx are decreased and she is feeling some relief. Probable discharge on 04/05/22. Medication Compliance: Yes Side effects from medications: No Attending Groups: Intermittent Review of Systems Acute medical concerns: No Medical Review of Systems: unchanged Mental Status Exam Mental Status Exam Patient Appearance: Appropriate Patient Orientation: Person, Place, Time and Situation Level of Consciousness: Alert Patient Behavior: Appropriate, Talkative, Cooperative and Good Eye Contact Mood Description: Constricted and Depressed Affect Description: Constricted and Flat Patient Cognition Impaired: No Ability to Follow Directions: Good Speech Pattern: Spontaneous Speech Memory Description: Intact Hallucinations: None Delusions: Not Present Thought Process: Goal Oriented Thought Content: positive for Goal Oriented and positive for Suicidal Ideation (denies) Depressive Symptoms: Increased Anxiety, Hopelessness, Isolating-Friends/Family, Increased Fatigue, Thoughts of /Suicide (denies), Loss of Energy and Difficulty Concentrating Judgement: Fair Diagnostics Vital Signs (24Hr): Vital Signs - 24 hr 04/02/22 18:00 04/03/22 09:13 Temperature 97.2 F 97.0 F Pulse Rate 92 109 H Respiratory Rate 18 20 Blood Pressure 115/66 125/70 Pulse Oximetry 96 94 Oxygen Delivery Method Room Air Room Air BMI result Body Mass Index 52.5 Labs 03/13/22 20:49 04/02/22 07:16 Labs: Laboratory Results - last 48 hr 04/02/22 07:16 Creatinine 0.68 Estim Creat Clear Calc 148.4 Estimated GFR > 60 Medications Medications Current Medications Acetaminophen (Acetaminophen 325 Mg Tablet) 650 mg PO Q6H PRN PRN Reason: Headache/Pain Mild Scale (1-3) Last Admin: 04/02/22 14:20 Dose: 650 mg Al Hydroxide/Mg Hydroxide (Magnesium Hydrox/Alum Hydrox 30 Ml Oral.Susp) 30 ml PO Q6H PRN PRN Reason: Heartburn/Nausea Bupropion HCl (Bupropion Hcl Xl 150 Mg Tab.Er.24h) 150 mg PO DAILY [facility] Last Admin: 04/03/22 09:14 Dose: 150 mg Bupropion HCl (Bupropion Hcl Xl 300 Mg Tab.Er.24h) 300 mg PO DAILY [facility] Last Admin: 04/03/22 09:16 Dose: 300 mg Chlorpromazine HCl (Chlorpromazine Hcl 25 Mg Tablet) 50 mg PO BEDTIME [facility] Last Admin: 04/02/22 20:29 Dose: 50 mg Chlorpromazine HCl (Chlorpromazine Hcl 25 Mg Tablet) 50 mg PO BEDTIME PRN PRN Reason: continued insomnia Last Admin: 03/30/22 23:13 Dose: 50 mg Chlorpromazine HCl (Chlorpromazine Hcl 25 Mg Tablet) 25 mg PO BID PRN PRN Reason: anxiety Last Admin: 04/02/22 12:28 Dose: 25 mg Clonazepam (Clonazepam 1 Mg Tablet) 1 mg PO BID PRN PRN Reason: Anxiety Last Admin: 04/02/22 20:32 Dose: 1 mg Clonidine HCl (Clonidine Hcl 0.2 Mg Tablet) 0.4 mg PO BEDTIME [facility]; Protocol Last Admin: 04/02/22 20:29 Dose: 0.4 mg Clonidine HCl (Clonidine Hcl 0.2 Mg Tablet) 0.2 mg PO Q4H PRN; Protocol PRN Reason: Anxiety Last Admin: 04/02/22 17:12 Dose: 0.2 mg Ferrous Sulfate (Ferrous Sulfate 324 Mg Tablet.Dr) 324 mg PO DAILY [facility] Last Admin: 04/03/22 09:14 Dose: 324 mg Fluticasone Propionate (Fluticasone Propionate Nasal 16 Gm [place]) 1 spray NOSTRIL-B BID [facility] Last Admin: 04/03/22 09:16 Dose: Not Given Folic Acid (Folic Acid 1 Mg Tablet) 1 mg PO DAILY [facility] Last Admin: 04/03/22 09:16 Dose: 1 mg Gabapentin (Gabapentin 600 Mg Tablet) 300 mg PO TID [facility] Last Admin: 04/03/22 09:15 Dose: 300 mg Hydrochlorothiazide (Hydrochlorothiazide 25 Mg Tablet) 25 mg PO DAILY [facility]; Protocol Last Admin: 04/03/22 09:16 Dose: 25 mg Hydroxyzine HCl (Hydroxyzine Hcl 50 Mg Tablet) 50 mg PO TID PRN PRN Reason: anxiety/insomnia Last Admin: 04/02/22 20:33 Dose: 50 mg Ibuprofen (Ibuprofen 400 Mg Tablet) 400 mg PO Q6H PRN PRN Reason: pain not responding to Tylenol Last Admin: 04/03/22 09:55 Dose: 400 mg Lurasidone HCl (Lurasidone Hcl 40 Mg Tablet) 120 mg PO BEDTIME [facility] Last Admin: 04/02/22 20:30 Dose: 120 mg Magnesium Hydroxide (Milk Of Magnesia 30 Ml Oral.Susp) 30 ml PO DAILY PRN PRN Reason: Constipation Metformin HCl (Metformin Hcl 500 Mg Tablet) 500 mg PO BID [facility] Last Admin: 04/03/22 09:16 Dose: 500 mg Methadone HCl (Methadone Hcl 20 Mg/2 Ml Oral.Conc) 180 mg PO DAILY [facility] Last Admin: 04/03/22 09:19 Dose: 180 mg Multivitamins/Vitamin C (Multivitamin Tablet) 1 tab PO DAILY [facility] Last Admin: 04/03/22 09:16 Dose: 1 tab Nicotine Polacrilex (Nicotine Polacrilex Lozenge 2 Mg Lozenge) 2 mg BUCCAL Q2H PRN PRN Reason: Nicotine Cravings Omeprazole (Omeprazole 20 Mg Capsule.Dr) 20 mg PO BID@0630,1630 [facility] Last Admin: 04/03/22 06:49 Dose: 20 mg Psyllium Hydrophilic Mucilloid (Psyllium Seed 3.4 Gm Powd.Pack) 3.4 gm PO DAILY [facility] Last Admin: 04/03/22 09:17 Dose: Not Given Pyridoxine HCl (Pyridoxine Hcl (Vitamin B6) 50 Mg Tablet) 50 mg PO DAILY [facility] Last Admin: 04/03/22 09:16 Dose: 50 mg Sertraline HCl (Sertraline Hcl 100 Mg Tablet) 100 mg PO DAILY [facility] Last Admin: 04/03/22 09:14 Dose: 100 mg Trazodone HCl (Trazodone Hcl 50 Mg Tablet) 50 mg PO BEDTIME PRN PRN Reason: Insomnia Last Admin: 04/03/22 01:25 Dose: 50 mg Venlafaxine HCl (Venlafaxine Hcl Er 75 Mg Cap.Er.24h) 75 mg PO DAILY [facility] Last Admin: 04/03/22 09:14 Dose: 75 mg Allergies Allergies Allergy/AdvReac Type Severity Reaction Status Date / Time meperidine [From Demerol] Allergy Mild UNKNOWN Verified 08/31/21 06:57 Penicillins Allergy Mild UNKNOWN Verified 08/31/21 06:57 propoxyphene Allergy Mild UNKNOWN Verified 08/31/21 06:57 [From Darvocet-N 50] Sulfa (Sulfonamide Allergy Mild UNKNOWN, Verified 08/31/21 06:57 Antibiotics) HIVES penicillin V Allergy Unknown SWELLING Verified 08/31/21 06:57 Assessment & Plan Assessment & Plan (1) PTSD (post-traumatic stress disorder): Status: Acute Code(s): F43.10 - Post-traumatic stress disorder, unspecified (2) Opioid use disorder, moderate, in early remission: Status: Acute Code(s): F11.21 - Opioid dependence, in remission (3) Bipolar 2 disorder, major depressive episode: Status: Acute Code(s): F31.81 - Bipolar II disorder Plan Increase Sertraline to 125 mg daily Ferrous sulfate 325 mg daily 03/25/22: Continue current regime. 03/27/22: Remains with depressive sx. Begin Effexor XR 37.5 mg. a.m. 03/28/22: Continue current treatment plan 03/30/22: Increase Effexor XR to 75 mg a.m. Decrease Sertraline to 100 mg a.m. 03/31/22: Decrease Gabapentin to 300 mg tid (to hopefully address sx of edema in hands) 04/01: Continue treatment plan. 04/02: Continue tx plan. 04/03/22: Continue current plan with residential focus. Change diet to 2 gram Na Increase Gabapentin to 600 mg tid Encourage use of compression stockings Decrease Effexor to 37.5 mg daily Patient educated on: medication risk/benefits, therapeutic strategies and medical condition Informed Consent: understands and further education needed Reason for contiued inpatient stay Substantial Risk for: rapid decompensation Time Spent With Patient Time: Total time managing care of this patient today 30 minutes.
[2022-04-03] MEDS: Acetaminophen 325 MG TABLET 650 MG PO (12:36)
[2022-04-03] MEDS: hydrOXYzine HCL 50 MG TABLET PO (12:36)
[2022-04-03] MEDS: chlorproMAZINE HCl 25 MG TABLET PO (12:36)
[2022-04-03] MEDS: clonazePAM 1 MG TABLET PO ×2 (14:55→20:38)
[2022-04-03 14:56] VITALS: BP 125/63; PULSE 116
[2022-04-03] MEDS: cloNIDine HCL 0.2 MG TABLET PO ×2 (14:56→18:58)
[2022-04-03 18:52] VITALS: BP 134/75; PULSE 109; RESP 14; TEMP 36.4
[2022-04-03 20:30] VITALS: BP 114/73; PULSE 102; RESP 14
[2022-04-03] MEDS: Gabapentin 600 MG TABLET PO (20:38)
[2022-04-03] MEDS: chlorproMAZINE HCl 25 MG TABLET 50 MG PO (20:38)
[2022-04-03] MEDS: cloNIDine HCL 0.2 MG TABLET 0.4 MG PO (20:38)
[2022-04-03] MEDS: Lurasidone HCl 40 MG TABLET 120 MG PO (20:39)
[2022-04-04 06:00] VITALS: BP 127/90; PULSE 102; RESP 20; TEMP 36.2; O2SAT 93
[2022-04-04] MEDS: Omeprazole 20 MG CAPSULE.DR PO ×2 (07:04→17:28)
[2022-04-04] MEDS: Pyridoxine HCl (Vitamin B6) 50 MG TABLET PO (09:04)
[2022-04-04] MEDS: hydroCHLOROthiazide 25 MG TABLET PO (09:04)
[2022-04-04] MEDS: Sertraline HCL 100 MG TABLET PO (09:05)
[2022-04-04] MEDS: Multivitamin TABLET 1 TAB PO (09:05)
[2022-04-04] MEDS: Folic Acid 1 MG TABLET PO (09:05)
[2022-04-04] MEDS: Ferrous Sulfate 324 MG TABLET.DR PO (09:05)
[2022-04-04] MEDS: metFORMIN HCl 500 MG TABLET PO ×2 (09:05→22:30)
[2022-04-04] MEDS: buPROPion HCl XL 300 MG TAB.ER.24H PO (09:05)
[2022-04-04] MEDS: Gabapentin 600 MG TABLET PO ×3 (09:05→22:25)
[2022-04-04] MEDS: buPROPion HCl XL 150 MG TAB.ER.24H PO (09:05)
[2022-04-04] MEDS: Venlafaxine HCl ER 37.5 MG CAP.ER.24H PO (09:05)
[2022-04-04] MEDS: methADONE HCl 20 MG/2 ML ORAL.CONC 180 MG PO (09:07)
[2022-04-04] MEDS: Ibuprofen 400 MG TABLET PO ×2 (09:31→22:29)
[2022-04-04] MEDS: cloNIDine HCL 0.2 MG TABLET PO ×2 (09:31→15:43)
--- NOTE | 2022-04-04 10:40 | P.PNPSI_ITS ---
Subjective Subjective Date of Service: 04/04/22 Reason For Visit: SI Subjective Notes: Conditional Voluntary Healthcare Proxy: No Guardianship: No Medical Problems Affecting Mental Status: No Interim History: Preparing for discharge this week, unsure where she will go. [facility] has availability, team working on Methadone appt. Reviewed in team-encouraging active participation in milieu, structure, adherence to a schedule. She is trying Medication Compliance: Yes Side effects from medications: No Attending Groups: Intermittent Review of Systems Acute medical concerns: No Medical Review of Systems: unchanged Mental Status Exam Mental Status Exam Patient Appearance: Appropriate Patient Orientation: Person, Place, Time and Situation Level of Consciousness: Alert Patient Behavior: Appropriate, Talkative, Cooperative and Good Eye Contact Mood Description: Constricted Affect Description: Constricted and Flat Patient Cognition Impaired: No Ability to Follow Directions: Good Speech Pattern: Spontaneous Speech Memory Description: Intact Hallucinations: None Delusions: Not Present Thought Process: Goal Oriented Thought Content: positive for Goal Oriented and positive for Suicidal Ideation (denies) Depressive Symptoms: Increased Anxiety, Hopelessness, Isolating-Friends/Family, Thoughts of /Suicide (denies) and Difficulty Concentrating Judgement: Good Diagnostics Vital Signs (24Hr): Vital Signs - 24 hr 04/03/22 14:56 04/03/22 18:52 04/03/22 20:30 Temperature 97.5 F Pulse Rate 116 H 109 H 102 H Respiratory Rate 14 14 Blood Pressure 125/63 134/75 114/73 Pulse Oximetry Oxygen Delivery Method 04/04/22 06:00 Temperature 97.2 F Pulse Rate 102 H Respiratory Rate 20 Blood Pressure 127/90 H Pulse Oximetry 93 Oxygen Delivery Method Room Air BMI result Body Mass Index 52.5 Labs 03/13/22 20:49 04/02/22 07:16 Medications Medications Current Medications Acetaminophen (Acetaminophen 325 Mg Tablet) 650 mg PO Q6H PRN PRN Reason: Headache/Pain Mild Scale (1-3) Last Admin: 04/03/22 12:36 Dose: 650 mg Al Hydroxide/Mg Hydroxide (Magnesium Hydrox/Alum Hydrox 30 Ml Oral.Susp) 30 ml PO Q6H PRN PRN Reason: Heartburn/Nausea Bupropion HCl (Bupropion Hcl Xl 150 Mg Tab.Er.24h) 150 mg PO DAILY [facility] Last Admin: 04/04/22 09:05 Dose: 150 mg Bupropion HCl (Bupropion Hcl Xl 300 Mg Tab.Er.24h) 300 mg PO DAILY [facility] Last Admin: 04/04/22 09:05 Dose: 300 mg Chlorpromazine HCl (Chlorpromazine Hcl 25 Mg Tablet) 50 mg PO BEDTIME [facility] Last Admin: 04/03/22 20:38 Dose: 50 mg Chlorpromazine HCl (Chlorpromazine Hcl 25 Mg Tablet) 50 mg PO BEDTIME PRN PRN Reason: continued insomnia Last Admin: 03/30/22 23:13 Dose: 50 mg Chlorpromazine HCl (Chlorpromazine Hcl 25 Mg Tablet) 25 mg PO BID PRN PRN Reason: anxiety Last Admin: 04/03/22 12:36 Dose: 25 mg Clonazepam (Clonazepam 1 Mg Tablet) 1 mg PO BID PRN PRN Reason: Anxiety Last Admin: 04/03/22 20:38 Dose: 1 mg Clonidine HCl (Clonidine Hcl 0.2 Mg Tablet) 0.4 mg PO BEDTIME [facility]; Protocol Last Admin: 04/03/22 20:38 Dose: 0.4 mg Clonidine HCl (Clonidine Hcl 0.2 Mg Tablet) 0.2 mg PO Q4H PRN; Protocol PRN Reason: Anxiety Last Admin: 04/04/22 09:31 Dose: 0.2 mg Ferrous Sulfate (Ferrous Sulfate 324 Mg Tablet.Dr) 324 mg PO DAILY [facility] Last Admin: 04/04/22 09:05 Dose: 324 mg Fluticasone Propionate (Fluticasone Propionate Nasal 16 Gm [place]) 1 spray NOSTRIL-B BID [facility] Last Admin: 04/03/22 20:42 Dose: Not Given Folic Acid (Folic Acid 1 Mg Tablet) 1 mg PO DAILY [facility] Last Admin: 04/04/22 09:05 Dose: 1 mg Gabapentin (Gabapentin 600 Mg Tablet) 600 mg PO TID [facility] Last Admin: 04/04/22 09:05 Dose: 600 mg Hydrochlorothiazide (Hydrochlorothiazide 25 Mg Tablet) 25 mg PO DAILY [facility]; Pro tocol Last Admin: 04/04/22 09:04 Dose: 25 mg Hydroxyzine HCl (Hydroxyzine Hcl 50 Mg Tablet) 50 mg PO TID PRN PRN Reason: anxiety/insomnia Last Admin: 04/03/22 12:36 Dose: 50 mg Ibuprofen (Ibuprofen 400 Mg Tablet) 400 mg PO Q6H PRN PRN Reason: pain not responding to Tylenol Last Admin: 04/04/22 09:31 Dose: 400 mg Lurasidone HCl (Lurasidone Hcl 40 Mg Tablet) 120 mg PO BEDTIME [facility] Last Admin: 04/03/22 20:39 Dose: 120 mg Magnesium Hydroxide (Milk Of Magnesia 30 Ml Oral.Susp) 30 ml PO DAILY PRN PRN Reason: Constipation Metformin HCl (Metformin Hcl 500 Mg Tablet) 500 mg PO BID [facility] Last Admin: 04/04/22 09:05 Dose: 500 mg Methadone HCl (Methadone Hcl 20 Mg/2 Ml Oral.Conc) 180 mg PO DAILY [facility] Last Admin: 04/04/22 09:07 Dose: 180 mg Multivitamins/Vitamin C (Multivitamin Tablet) 1 tab PO DAILY [facility] Last Admin: 04/04/22 09:05 Dose: 1 tab Nicotine Polacrilex (Nicotine Polacrilex Lozenge 2 Mg Lozenge) 2 mg BUCCAL Q2H PRN PRN Reason: Nicotine Cravings Omeprazole (Omeprazole 20 Mg Capsule.Dr) 20 mg PO BID@0630,1630 [facility] Last Admin: 04/04/22 07:04 Dose: 20 mg Psyllium Hydrophilic Mucilloid (Psyllium Seed 3.4 Gm Powd.Pack) 3.4 gm PO DAILY [facility] Last Admin: 04/03/22 09:17 Dose: Not Given Pyridoxine HCl (Pyridoxine Hcl (Vitamin B6) 50 Mg Tablet) 50 mg PO DAILY [facility] Last Admin: 04/04/22 09:04 Dose: 50 mg Sertraline HCl (Sertraline Hcl 100 Mg Tablet) 100 mg PO DAILY [facility] Last Admin: 04/04/22 09:05 Dose: 100 mg Trazodone HCl (Trazodone Hcl 50 Mg Tablet) 50 mg PO BEDTIME PRN PRN Reason: Insomnia Last Admin: 04/03/22 20:39 Dose: 50 mg Venlafaxine HCl (Venlafaxine Hcl Er 37.5 Mg Cap.Er.24h) 37.5 mg PO DAILY [facility] Last Admin: 04/04/22 09:05 Dose: 37.5 mg Allergies Allergies Allergy/AdvReac Type Severity Reaction Status Date / Time meperidine [From Demerol] Allergy Mild UNKNOWN Verified 08/31/21 06:57 Penicillins Allergy Mild UNKNOWN Verified 08/31/21 06:57 propoxyphene Allergy Mild UNKNOWN Verified 08/31/21 06:57 [From Darnikt-N 50] Sulfa (Sulfonamide Allergy Mild UNKNOWN, Verified 08/31/21 06:57 Antibiotics) HIVES penicillin V Allergy Unknown SWELLING Verified 08/31/21 06:57 Assessment & Plan Assessment & Plan (1) PTSD (post-traumatic stress disorder): Status: Acute Code(s): F43.10 - Post-traumatic stress disorder, unspecified (2) Opioid use disorder, moderate, in early remission: Status: Acute Code(s): F11.21 - Opioid dependence, in remission (3) Bipolar 2 disorder, major depressive episode: Status: Acute Code(s): F31.81 - Bipolar II disorder Plan Increase Sertraline to 125 mg daily Ferrous sulfate 325 mg daily 03/25/22: Continue current regime. 03/27/22: Remains with depressive sx. Begin Effexor XR 37.5 mg. a.m. 03/28/22: Continue current treatment plan 03/30/22: Increase Effexor XR to 75 mg a.m. Decrease Sertraline to 100 mg a.m. 03/31/22: Decrease Gabapentin to 300 mg tid (to hopefully address sx of edema in hands) 04/01: Continue treatment plan. 04/02: Continue tx plan. 04/03/22: Continue current plan with residential focus. Change diet to 2 gram Na Increase Gabapentin to 600 mg tid Encourage use of compression stockings Decrease Effexor to 37.5 mg daily 04/04/22: Increase Effexor to 75 mg daily- pt reports it did help the depression, I just did not know it until we began tapering Discharge planning for this week. Patient educated on: medication risk/benefits Informed Consent: understands Reason for contiued inpatient stay Substantial Risk for: stable for discharge Time Spent With Patient Time: Total time managing care of this patient today 20 minutes.
[2022-04-04] MEDS: Acetaminophen 325 MG TABLET 650 MG PO (12:23)
[2022-04-04] MEDS: chlorproMAZINE HCl 25 MG TABLET PO (12:23)
[2022-04-04] MEDS: hydrOXYzine HCL 50 MG TABLET PO ×2 (12:23→22:27)
[2022-04-04] MEDS: clonazePAM 1 MG TABLET PO ×2 (15:42→22:28)
[2022-04-04 22:20] VITALS: BP 171/59; PULSE 113; TEMP 36.4
[2022-04-04] MEDS: Lurasidone HCl 40 MG TABLET 120 MG PO (22:26)
[2022-04-04] MEDS: chlorproMAZINE HCl 25 MG TABLET 50 MG PO (22:27)
[2022-04-04] MEDS: cloNIDine HCL 0.2 MG TABLET 0.4 MG PO (22:28)
[2022-04-04] MEDS: Fluticasone Propionate Nasal 16 GM SPRAY 1 SPRAY NOSTRIL-B (22:31)
[2022-04-05] MEDS: methADONE HCl 20 MG/2 ML ORAL.CONC 180 MG PO (08:56)
[2022-04-05] MEDS: hydroCHLOROthiazide 25 MG TABLET PO (08:56)
[2022-04-05] MEDS: Fluticasone Propionate Nasal 16 GM SPRAY 1 SPRAY NOSTRIL-B ×2 (08:56→20:32)
[2022-04-05] MEDS: Sertraline HCL 100 MG TABLET PO (08:57)
[2022-04-05] MEDS: Ferrous Sulfate 324 MG TABLET.DR PO (08:57)
[2022-04-05] MEDS: Gabapentin 600 MG TABLET PO ×3 (08:57→20:29)
[2022-04-05] MEDS: Multivitamin TABLET 1 TAB PO (08:57)
[2022-04-05] MEDS: metFORMIN HCl 500 MG TABLET PO ×2 (08:57→20:30)
[2022-04-05] MEDS: Omeprazole 20 MG CAPSULE.DR PO ×2 (08:57→16:03)
[2022-04-05] MEDS: Folic Acid 1 MG TABLET PO (08:57)
[2022-04-05] MEDS: cloNIDine HCL 0.2 MG TABLET PO ×2 (08:58→16:03)
[2022-04-05] MEDS: buPROPion HCl XL 150 MG TAB.ER.24H PO (08:58)
[2022-04-05] MEDS: buPROPion HCl XL 300 MG TAB.ER.24H PO (08:58)
[2022-04-05] MEDS: clonazePAM 1 MG TABLET PO ×2 (08:58→20:30)
[2022-04-05] MEDS: Pyridoxine HCl (Vitamin B6) 50 MG TABLET PO (08:58)
[2022-04-05] MEDS: Venlafaxine HCl ER 37.5 MG CAP.ER.24H PO (09:04)
[2022-04-05 09:05] VITALS: BP 117/55; PULSE 128; RESP 18; TEMP 35.4; O2SAT 95
[2022-04-05] MEDS: Ibuprofen 400 MG TABLET PO (16:03)
[2022-04-05] MEDS: chlorproMAZINE HCl 25 MG TABLET PO (16:05)
[2022-04-05 18:00] VITALS: BP 136/70; PULSE 111; RESP 20; TEMP 36.2; O2SAT 96
--- NOTE | 2022-04-05 20:13 | P.PNPSI_ITS ---
Subjective Subjective Date of Service: 04/05/22 Reason For Visit: SI Subjective Notes: Conditional Voluntary Healthcare Proxy: No Guardianship: No Medical Problems Affecting Mental Status: No Interim History: Discharge planning for [facility] this week. Full med review. I feel less depressed. Poor sleep reported, anxious about new placement Review of all medical testing done while in patient Medication Compliance: Yes Side effects from medications: No Attending Groups: Intermittent Review of Systems Acute medical concerns: No Medical Review of Systems: unchanged Mental Status Exam Mental Status Exam Patient Appearance: Appropriate Patient Orientation: Person, Place, Time and Situation Level of Consciousness: Alert Patient Behavior: Appropriate, Talkative, Cooperative and Good Eye Contact Mood Description: Constricted Affect Description: Constricted and Flat Patient Cognition Impaired: No Ability to Follow Directions: Good Speech Pattern: Spontaneous Speech Memory Description: Intact Hallucinations: None Delusions: Not Present Thought Process: Goal Oriented Thought Content: positive for Goal Oriented and positive for Suicidal Ideation (denies) Depressive Symptoms: Increased Anxiety, Hopelessness, Isolating-Friends/Family, Thoughts of /Suicide (denies) and Difficulty Concentrating Judgement: Good Diagnostics Vital Signs (24Hr): Vital Signs - 24 hr 04/04/22 22:20 04/05/22 09:05 04/05/22 18:00 Temperature 97.5 F 95.7 F L 97.1 F Pulse Rate 113 H 128 H 111 H Respiratory Rate 18 20 Blood Pressure 171/59 H 117/55 L 136/70 Pulse Oximetry 95 96 Oxygen Delivery Method Room Air Room Air BMI result Body Mass Index 52.5 Labs 03/13/22 20:49 04/02/22 07:16 Labs: Laboratory Results - last 48 hr 04/04/22 12:42 Hep C Viral Load Cancelled Hep C Viral Load Log Cancelled Hepatitis C Genotype Cancelled Medications Medications Current Medications Acetaminophen (Acetaminophen 325 Mg Tablet) 650 mg PO Q6H PRN PRN Reason: Headache/Pain Mild Scale (1-3) Last Admin: 04/04/22 12:23 Dose: 650 mg Al Hydroxide/Mg Hydroxide (Magnesium Hydrox/Alum Hydrox 30 Ml Oral.Susp) 30 ml PO Q6H PRN PRN Reason: Heartburn/Nausea Bupropion HCl (Bupropion Hcl Xl 150 Mg Tab.Er.24h) 150 mg PO DAILY [facility] Last Admin: 04/05/22 08:58 Dose: 150 mg Bupropion HCl (Bupropion Hcl Xl 300 Mg Tab.Er.24h) 300 mg PO DAILY [facility] Last Admin: 04/05/22 08:58 Dose: 300 mg Chlorpromazine HCl (Chlorpromazine Hcl 25 Mg Tablet) 50 mg PO BEDTIME [facility] Last Admin: 04/04/22 22:27 Dose: 50 mg Chlorpromazine HCl (Chlorpromazine Hcl 25 Mg Tablet) 50 mg PO BEDTIME PRN PRN Reason: continued insomnia Last Admin: 03/30/22 23:13 Dose: 50 mg Chlorpromazine HCl (Chlorpromazine Hcl 25 Mg Tablet) 25 mg PO BID PRN PRN Reason: anxiety Last Admin: 04/05/22 16:05 Dose: 25 mg Clonazepam (Clonazepam 1 Mg Tablet) 1 mg PO BID PRN PRN Reason: Anxiety Last Admin: 04/05/22 08:58 Dose: 1 mg Clonidine HCl (Clonidine Hcl 0.2 Mg Tablet) 0.4 mg PO BEDTIME [facility]; Protocol Last Admin: 04/04/22 22:28 Dose: 0.4 mg Clonidine HCl (Clonidine Hcl 0.2 Mg Tablet) 0.2 mg PO Q4H PRN; Protocol PRN Reason: Anxiety Last Admin: 04/05/22 16:03 Dose: 0.2 mg Ferrous Sulfate (Ferrous Sulfate 324 Mg Tablet.Dr) 324 mg PO DAILY [facility] Last Admin: 04/05/22 08:57 Dose: 324 mg Fluticasone Propionate (Fluticasone Propionate Nasal 16 Gm [place]) 1 spray NOSTRIL-B BID [facility] Last Admin: 04/05/22 08:56 Dose: 1 spray Folic Acid (Folic Acid 1 Mg Tablet) 1 mg PO DAILY [facility] Last Admin: 04/05/22 08:57 Dose: 1 mg Gabapentin (Gabapentin 600 Mg Tablet) 600 mg PO TID [facility] Last Admin: 04/05/22 14:33 Dose: 600 mg Hydrochlorothiazide (Hydrochlorothiazide 25 Mg Tablet) 25 mg PO DAILY [facility]; Protocol Last Admin: 04/05/22 08:56 Dose: 25 mg Hydroxyzine HCl (Hydroxyzine Hcl 50 Mg Tablet) 50 mg PO TID PRN PRN Reason: anxiety/insomnia Last Admin: 04/04/22 22:27 Dose: 50 mg Ibuprofen (Ibuprofen 400 Mg Tablet) 400 mg PO Q6H PRN PRN Reason: pain not responding to Tylenol Last Admin: 04/05/22 16:03 Dose: 400 mg Lurasidone HCl (Lurasidone Hcl 40 Mg Tablet) 120 mg PO BEDTIME [facility] Last Admin: 04/04/22 22:26 Dose: 120 mg Magnesium Hydroxide (Milk Of Magnesia 30 Ml Oral.Susp) 30 ml PO DAILY PRN PRN Reason: Constipation Metformin HCl (Metformin Hcl 500 Mg Tablet) 500 mg PO BID [facility] Last Admin: 04/05/22 08:57 Dose: 500 mg Methadone HCl (Methadone Hcl 20 Mg/2 Ml Oral.Conc) 180 mg PO DAILY [facility] Last Admin: 04/05/22 08:56 Dose: 180 mg Multivitamins/Vitamin C (Multivitamin Tablet) 1 tab PO DAILY [facility] Last Admin: 04/05/22 08:57 Dose: 1 tab Nicotine Polacrilex (Nicotine Polacrilex Lozenge 2 Mg Lozenge) 2 mg BUCCAL Q2H PRN PRN Reason: Nicotine Cravings Omeprazole (Omeprazole 20 Mg Capsule.Dr) 20 mg PO BID@0630,1630 [facility] Last Admin: 04/05/22 16:03 Dose: 20 mg Psyllium Hydrophilic Mucilloid (Psyllium Seed 3.4 Gm Powd.Pack) 3.4 gm PO DAILY [facility] Last Admin: 04/05/22 09:04 Dose: Not Given Pyridoxine HCl (Pyridoxine Hcl (Vitamin B6) 50 Mg Tablet) 50 mg PO DAILY [facility] Last Admin: 04/05/22 08:58 Dose: 50 mg Sertraline HCl (Sertraline Hcl 100 Mg Tablet) 100 mg PO DAILY [facility] Last Admin: 04/05/22 08:57 Dose: 100 mg Trazodone HCl (Trazodone Hcl 50 Mg Tablet) 50 mg PO BEDTIME PRN PRN Reason: Insomnia Last Admin: 04/03/22 20:39 Dose: 50 mg Venlafaxine HCl (Venlafaxine Hcl Er 75 Mg Cap.Er.24h) 75 mg PO DAILY [facility] Allergies Allergies Allergy/AdvReac Type Severity Reaction Status Date / Time meperidine [From Demerol] Allergy Mild UNKNOWN Verified 08/31/21 06:57 Penicillins Allergy Mild UNKNOWN Verified 08/31/21 06:57 propoxyphene Allergy Mild UNKNOWN Verified 08/31/21 06:57 [From Darvocet-N 50] Sulfa (Sulfonamide Allergy Mild UNKNOWN, Verified 08/31/21 06:57 Antibiotics) HIVES penicillin V Allergy Unknown SWELLING Verified 08/31/21 06:57 Assessment & Plan Assessment & Plan (1) PTSD (post-traumatic stress disorder): Status: Acute Code(s): F43.10 - Post-traumatic stress disorder, unspecified (2) Opioid use disorder, moderate, in early remission: Status: Acute Code(s): F11.21 - Opioid dependence, in remission (3) Bipolar 2 disorder, major depressive episode: Status: Acute Code(s): F31.81 - Bipolar II disorder Plan Increase Sertraline to 125 mg daily Ferrous sulfate 325 mg daily 03/25/22: Continue current regime. 03/27/22: Remains with depressive sx. Begin Effexor XR 37.5 mg. a.m. 03/28/22: Continue current treatment plan 03/30/22: Increase Effexor XR to 75 mg a.m. Decrease Sertraline to 100 mg a.m. 03/31/22: Decrease Gabapentin to 300 mg tid (to hopefully address sx of edema in hands) 04/01: Continue treatment plan. 04/02: Continue tx plan. 04/03/22: Continue current plan with residential focus. Change diet to 2 gram Na Increase Gabapentin to 600 mg tid Encourage use of compression stockings Decrease Effexor to 37.5 mg daily 04/05/22 Discharge 04/06/22 Patient educated on: medication risk/benefits and therapeutic strategies Informed Consent: understands Reason for contiued inpatient stay Substantial Risk for: stable for discharge Time Spent With Patient Time: Total time managing care of this patient today 20 minutes.
[2022-04-05] MEDS: chlorproMAZINE HCl 25 MG TABLET 50 MG PO (20:27)
[2022-04-05] MEDS: cloNIDine HCL 0.2 MG TABLET 0.4 MG PO (20:28)
[2022-04-05] MEDS: traZODone HCL 50 MG TABLET PO (20:29)
[2022-04-05] MEDS: Lurasidone HCl 40 MG TABLET 120 MG PO (20:29)
[2022-04-05] MEDS: Acetaminophen 325 MG TABLET 650 MG PO (20:30)
[2022-04-06 09:00] VITALS: BP 118/62; PULSE 95; RESP 18; TEMP 36.3; O2SAT 93
[2022-04-06] MEDS: methADONE HCl 20 MG/2 ML ORAL.CONC 180 MG PO (09:16)
[2022-04-06] MEDS: Ibuprofen 400 MG TABLET PO (09:17)
[2022-04-06] MEDS: Pyridoxine HCl (Vitamin B6) 50 MG TABLET PO (09:17)
[2022-04-06] MEDS: buPROPion HCl XL 150 MG TAB.ER.24H PO (09:17)
[2022-04-06] MEDS: Omeprazole 20 MG CAPSULE.DR PO (09:18)
[2022-04-06] MEDS: Ferrous Sulfate 324 MG TABLET.DR PO (09:18)
[2022-04-06] MEDS: metFORMIN HCl 500 MG TABLET PO (09:18)
[2022-04-06] MEDS: buPROPion HCl XL 300 MG TAB.ER.24H PO (09:18)
[2022-04-06] MEDS: hydrOXYzine HCL 50 MG TABLET PO ×2 (09:18→12:23)
[2022-04-06] MEDS: chlorproMAZINE HCl 25 MG TABLET PO (09:18)
[2022-04-06] MEDS: hydroCHLOROthiazide 25 MG TABLET PO (09:18)
[2022-04-06] MEDS: Venlafaxine HCl ER 75 MG CAP.ER.24H PO (09:18)
[2022-04-06] MEDS: Multivitamin TABLET 1 TAB PO (09:18)
[2022-04-06] MEDS: Folic Acid 1 MG TABLET PO (09:18)
[2022-04-06] MEDS: Gabapentin 600 MG TABLET PO (09:18)
[2022-04-06] MEDS: Sertraline HCL 100 MG TABLET PO (09:22)
[2022-04-06] MEDS: clonazePAM 1 MG TABLET PO (12:18)
[2022-04-06] MEDS: Acetaminophen 325 MG TABLET 650 MG PO (12:18)
[2022-04-06 12:23] VITALS: BP 131/68; PULSE 138
[2022-04-06] MEDS: cloNIDine HCL 0.2 MG TABLET PO (12:23)
--- NOTE | 2022-04-06 12:24 | PM.PSYDC ---
DS: Providers Provider Date of Service: 04/06/22 Date of admission: 03/15/22 14:43 Date of discharge: 04/06/22 Primary care physician: Diamond Escoto MD Admitting clinician: Christina Morales Attending physician on admission: Hai Ibarra Consults: 03/21/22 23:40 Consult to Infectious Diseases Routine Consulting Provider: Joselyn Mathis Reason for consultation: +Hep C (Anali King following) 03/22/22 09:08 Consult to Cardiology Routine Consulting Provider: [facility] [place] Cardiovascular Services Reason for consultation: EKG-?inferior infarct, edema-hands,feet, new DM dx, Inc. QTc Has provider been notified: No 03/23/22 13:13 Consult to Hospitalist Routine Consulting Provider: Hospitalist Reason For Exam: bilat edema, hands, feet; new DM dx Attending physician on discharge: Hai Ibarra Discharging clinician: Anali Sanchez DS: Diagnosis Discharge Diagnosis (1) PTSD (post-traumatic stress disorder): Status: Acute (2) Opioid use disorder, moderate, in early remission: Status: Acute (3) Bipolar 2 disorder, major depressive episode: Status: Acute DS: Medications Discharge Medications Home Medications: Home Medications Medication Instructions Recorded Confirmed methadone 10 mg/5 mL oral solution 180 mg PO DAILY 04/15/21 03/14/22 Previous Rx's Medication Instructions Recorded bupropion HCl 150 mg 24 hr tablet, 150 mg PO QAM #30 tabs 04/06/22 extended release bupropion HCl 300 mg 24 hr tablet, 300 mg PO QAM #30 tabs 04/06/22 extended release chlorpromazine 25 mg tablet 25 mg PO BID PRN anxiety #60 tabs 04/06/22 chlorpromazine 25 mg tablet 50 mg PO BEDTIME #30 tabs 04/06/22 chlorpromazine 25 mg tablet 50 mg PO BEDTIME PRN continued 04/06/22 insomnia #30 tabs clonazepam 1 mg tablet 1 mg PO BID PRN Anxiety #15 tabs 04/06/22 clonidine HCl 0.2 mg tablet 0.2 mg PO Q4H PRN Anxiety #60 tabs 04/06/22 clonidine HCl 0.2 mg tablet 0.4 mg PO BEDTIME #60 tabs 04/06/22 ferrous sulfate 324 mg (65 mg 324 mg PO DAILY #30 tabs 04/06/22 iron) tablet,delayed release fluticasone propionate 50 1 spray intranasal BID #1 inhaler 04/06/22 mcg/actuation nasal spray,suspension folic acid 1 mg tablet 1 mg PO DAILY #30 tabs 04/06/22 gabapentin 600 mg tablet 600 mg PO TID #90 tabs 04/06/22 hydrochlorothiazide 25 mg tablet 25 mg PO DAILY #30 tabs 04/06/22 ibuprofen 400 mg tablet 400 mg PO Q6H PRN pain not 04/06/22 responding to Tylenol #30 tabs lurasidone 120 mg tablet (Latuda) 120 mg PO BEDTIME #30 tabs 04/06/22 metformin 500 mg tablet 500 mg PO BID #60 tabs 04/06/22 multivitamin 1 tab PO DAILY #30 tabs 04/06/22 omeprazole 20 mg capsule,delayed 20 mg PO BID #60 caps 04/06/22 release pyridoxine (vitamin B6) 50 mg 50 mg PO DAILY #30 tabs 04/06/22 tablet sertraline 100 mg tablet 100 mg PO DAILY #30 tabs 04/06/22 trazodone 50 mg tablet 50 mg PO BEDTIME PRN Insomnia #30 04/06/22 tabs venlafaxine 75 mg capsule,extended 75 mg PO DAILY #30 caps 04/06/22 release 24 hr Mental Status Exam Mental Status Exam Patient Appearance: Appropriate Patient Orientation: Person, Place, Time and Situation Level of Consciousness: Alert Patient Behavior: Appropriate, Talkative, Cooperative and Good Eye Contact Mood Description: Constricted Affect Description: Constricted and Flat Patient Cognition Impaired: No Ability to Follow Directions: Good Speech Pattern: Spontaneous Speech Memory Description: Intact Hallucinations: None Delusions: Not Present Thought Process: Goal Oriented Thought Content: positive for Goal Oriented and positive for Suicidal Ideation (denies) Depressive Symptoms: Increased Anxiety, Hopelessness, Isolating-Friends/Family, Thoughts of /Suicide (denies) and Difficulty Concentrating Judgement: Good Data Data Completed and Pending Completed studies during hospitalization [Text1]: 04/02/22 04/04/22 04/04/22 07:16 12:42 12:42 Creatinine 0.68 Estim Creat Clear Calc 148.4 Estimated GFR > 60 Liver GGT Pending Liver Total Bilirubin Pending Liver Apolipoprotein A1 Pending Liver Fibrosis ALT Pending Liver [id number] Pending Liver Haptoglobin Pending Liver Fibrosis Score Pending Liver Fibrosis Interp Pending Liver Fibrosis Comment Pending Liver Fibrosis Stage Pending Necroinflammator Score Pending Necroinflam Score Cmmt Pending Necroinflammator Grade Pending HCV RNA Genotype LiPA Pending HCV RNA (PCR) IUs/ml Pending HCV RNA PCR log IUs/ml Pending Hepatitis C RNA Comment Pending Hep C Viral Load Cancelled Hep C Viral Load Log Cancelled Hepatitis C Genotype Cancelled Ref Lab Specimen ID Pending DS: Summary Hospital Course Hospital Course: Admission to adult psychiatry for exacerbation of PTSD, Bipolar Disorder, Type 2, Opiate Use Disorder, on MAT and physical issues related to lack of self care and new diagnosis of diabetes. Seroquel and Vyvanse were discontinued. Chlorpromazine, Venlafaxine, Sertraline were initiated. Clonidine was titrated. Bupropion, Klonopin, Latuda, Gabapentin and Methadone were continued. Pt required an extended hospitalization in search of placement and due to poor compliance with medical treatment recommendations with resulting extended period of depressive sx which were exacerbated due to medical symptoms. Time spent discussing smoking cessation with patient: 3 to 10 minutes Status at Discharge Functional status at discharge: independent ambulation Overall status at discharge: patient is progressing back to baseline Time Spent with Patient Time attestation: Total time managing care of this patient today 35 minutes. Time spent: Greater than 30 minutes Discharge Plan Discharge Anticipated Discharge Date/Time: 04/06/22 16:52 Patient Disposition: Xfer Other Discharge Diagnosis: PTSD Bipolar Disorder, II Opiate Use Disorder, pt on MAT HTN, DM, Extremity Edema, Obesity, Hepatitis C antibody positive Referrals: Kishore Quinonez [Other] - 1 Week (Referral for Substance use treatment ) Shantel Mays [Other] - 1 Week (Referral for substance abuse treatment.) Kishore Munoz [facility] [Other] - 1 Week (Referral to [facility] program for substance use treatment) [facility] [Other] - 1 Week (Referral for [facility] ) [facility] [Other] - 04/06/22 3:00 pm (Referral to [facility] Patient accepted for treatment for substance abuse ) Diamond Escoto MD [Primary Care Provider] - 04/12/22 1:45 pm (in office) Discharge Medications: New sertraline 100 mg Tablet 100 mg PO DAILY Qty: 30 0RF clonidine HCl 0.2 mg Tablet 0.2 mg PO Q4H PRN (Reason: Anxiety) Qty: 60 0RF Protocol: Hold for SBP< HOLD for SBP < : 90 chlorpromazine 25 mg Tablet 50 mg PO BEDTIME Qty: 30 0RF chlorpromazine 25 mg Tablet 25 mg PO BID PRN (Reason: anxiety) Qty: 60 0RF chlorpromazine 25 mg Tablet 50 mg PO BEDTIME PRN (Reason: continued insomnia) Qty: 30 0RF ferrous sulfate 324 mg (65 mg iron) Tablet,Delayed Release (Dr/Ec) 324 mg PO DAILY Qty: 30 0RF venlafaxine 75 mg Capsule,Extended Release 24hr 75 mg PO DAILY Qty: 30 0RF trazodone 50 mg Tablet 50 mg PO BEDTIME PRN (Reason: Insomnia) Qty: 30 0RF ibuprofen 400 mg Tablet 400 mg PO Q6H PRN (Reason: pain not responding to Tylenol) Qty: 30 0RF hydrochlorothiazide 25 mg Tablet 25 mg PO DAILY Qty: 30 0RF Protocol: Hold for SBP< HOLD for SBP < : 90 Continued multivitamin Tablet 1 tab PO DAILY Qty: 30 0RF metformin 500 mg Tablet 500 mg PO BID Qty: 60 0RF gabapentin 600 mg Tablet 600 mg PO TID Qty: 90 0RF clonazepam 1 mg Tablet 1 mg PO BID PRN (Reason: Anxiety) Qty: 15 4RF clonidine HCl 0.2 mg Tablet 0.4 mg PO BEDTIME Qty: 60 0RF pyridoxine (vitamin B6) 50 mg Tablet 50 mg PO DAILY Qty: 30 0RF omeprazole 20 mg Capsule,Delayed Release(Dr/Ec) 20 mg PO BID Qty: 60 0RF folic acid 1 mg Tablet 1 mg PO DAILY Qty: 30 0RF fluticasone propionate 50 mcg/actuation [place],Suspension 1 spray INTRANASAL BID Qty: 1 0RF Rx Instructions: administer into each nostril bupropion HCl 300 mg Tablet Extended Release 24 Hr 300 mg PO QAM Qty: 30 0RF bupropion HCl 150 mg Tablet Extended Release 24 Hr 150 mg PO QAM Qty: 30 0RF Latuda 120 mg tablet 120 mg PO BEDTIME Qty: 30 0RF methadone 10 mg/5 mL Solution 180 mg PO DAILY Discontinued clonidine HCl 0.1 mg Tablet 0.2 mg PO TID PRN (Reason: Anxiety) atenolol 25 mg Tablet 25 mg PO DAILY hydroxyzine HCl 25 mg Tablet 25 - 50 mg PO BID PRN (Reason: Anxiety) Vyvanse 70 mg Capsule 70 mg PO DAILY@1200 sertraline 50 mg Tablet 50 mg PO DAILY 30 Days Qty: 30 0RF nicotine (polacrilex) 2 mg Lozenge 2 mg BUCCAL Q2H PRN (Reason: Nicotine Cravings) hydrochlorothiazide 12.5 mg Tablet 12.5 mg PO DAILY quetiapine 25 mg Tablet 75 mg PO BEDTIME Qty: 90 0RF Discharge Orders: Discharge Order (Routine); Ordered 04/06/22 Ordered By: Anali Sanchez Diet: Diabetic diet Activity on Discharge: As tolerated Stand Alone Forms: Patient Portal Discharge page, Community Support Care Plan Goals: Maintain mood and safe behaviors Take medications as directed Practice coping skills Connect with out patient providers Health Concerns: Mood and behavioral stability Plan of Treatment: Follow up with out patient providers Take medications as directed Assessment: Pt is fully oriented and without SI/HI. Pt has insight and demonstrates good judgment in terms of wanting to pursue treatment, both outpatient and residential Pt is not in imminent risk of harm to self or others and has a safety plan that includes presenting to the closest ER or calling 911 if feeling unsafe Pt has been observed closely by the nursing team throughout admission Pt has not engaged in any behaviors that suggest dangerousness to self or others and has demonstrated appropriate behaviors and impulse control. Discharge Date/Time: 04/06/22 14:36
[2022-04-06 13:44] LABS: COVID-19 Test Negative (Negative); IDNOW Serial# 6674DD1D
[2022-04-06 19:42] LABS: HCV RNA PCR Qn <1.18 NOT DETECTED Log IU/mL (NOT DETECTED); HCV RNA PCR Qn <15 NOT DETECTED IU/mL (NOT DETECTED)
[2022-04-08 15:57] LABS: FIB-ALT 30 U/L (6-29); FIB-Alpha-2-Macroglobulin 204 mg/dL (106-279); FIB-Apolipoprotein A1 181 mg/dL (101-198); FIB-GGT 33 U/L (3-50); FIB-Haptoglobin 131 mg/dL (43-212); FIB-Total Bilirubin 0.2 mg/dL (0.2-1.2); Liver Fibrosis Score 0.04; Liver Fibrosis Stage F0; Nec Inflam Act Grade A0
== END 2022-04-06 14:36 | disposition other institution (70) | DRG 753 ==
LOC: HO.ED 03-15 12:42 → HO.PM5 03-15 14:47
PROVIDERS: Internal Medicine; Nurse Practitioner Family; Psychiatry & Neurology Psychiatry; Social Worker; Admitting Provider Psychiatry & Neurology Psychiatry; Emergency Provider Internal Medicine; PCP Family Medicine; Visit Provider Clinical Nurse Specialist Psychiatric/Mental Health, Adult
DX: F31.81 Bipolar II disorder (principal); R45.851 Suicidal ideations; Z68.43 Body mass index [BMI] 50.0-59.9, adult; F17.210 Nicotine dependence, cigarettes, uncomplicated; I10 Essential (primary) hypertension; E87.6 Hypokalemia; E66.01 Morbid (severe) obesity due to excess calories; R07.89 Other chest pain; F11.20 Opioid dependence, uncomplicated; F43.10 Post-traumatic stress disorder, unspecified; K59.00 Constipation, unspecified; Z20.822 Contact with and (suspected) exposure to COVID-19; Z71.6 Tobacco abuse counseling; Z88.0 Allergy status to penicillin; Z88.2 Allergy status to sulfonamides; Z88.8 Allergy status to other drugs, medicaments and biological substances; Z79.51 Long term (current) use of inhaled steroids; Z79.84 Long term (current) use of oral hypoglycemic drugs; Z79.899 Other long term (current) drug therapy
CPT/HCPCS: 36415; 80053; 80061; 80307; 81001; 81003; 81025; 81596; 82565; 82607; 83036; 83880; 84443; 85025; 85652; 86140; 86704; 86706; 86803; 87340; 87522; 87635; 87902; 93005; 99285; S9485

== ENCOUNTER 2023-01-23 16:53 | Inpatient (IN) | payer MEDICAID, OTHER, SELFPAY ==
[2023-01-23 16:59] VITALS: BP 126/90; BP 133/81; PULSE 90; PULSE 98; RESP 18; TEMP 36.5; O2SAT 95; BMI 49.1
[2023-01-23 17:23] LABS: UPreg QC Valid YES; Urine Pregnancy NEGATIVE (NEGATIVE)
[2023-01-23 17:24] LABS: Amphetamine Screen Urine POSITIVE (Not Detect); Barbiturates, Urine Not Detected (Not Detect); Benzodiazepines Screen Urine Not Detected (Not Detect); Cannabinoid Screen Urine Not Detected (Not Detect); Cocaine Screen Urine Not Detected (Not Detect); Fentanyl, urine Not Detected (Not Detect); Opiate Screen Urine Not Detected (Not Detect); Phencyclidine Screen Urine Not Detected (Not Detect)
--- NOTE | 2023-01-23 18:12 | PC.NURSE ---
patient arrived via ems on a stretcher. Patient is able to ambulate on her own. Patient is alert and oriented and able to make needs known. Patient states she has SI and has thoughts of buying a bunch of heroin to overdose on . Patient states they were in a transitional living program for the previous 5 months and was discharged today.Patient was given placement at the living room today before calling EMS. [facility] completed, patients belongings secured, controlled medications sent to pharmacy.
[2023-01-23 18:16] VITALS: RESP 18
[2023-01-23 18:52] LABS: Acetaminophen LAB < 3 mcg/mL (<30); Alanine Aminotransferase 21 U/L (0-31); Albumin Level 3.9 g/dL (3.5-5.0); Alkaline Phosphatase 82 U/L (39-117); Anion Gap 9 (12-20); Aspartate Amino Transferase 13 U/L (5-31); Basophils Percent Auto 0.3 % (0-2); Bilirubin Total 0.2 mg/dL (0.0-1.0); Blood Urea Nitrogen 7 mg/dL (9-16); Calcium 9.1 mg/dL (8.4-10.2); Carbon Dioxide 32 mmol/L (22-29); Chloride 100 mmol/L (96-108); Creatinine Clr Calc Pharmacy 146.5; Eosinophils Absolute Auto 0.2 X10*3/uL (0.0-0.4); Estimated Glomerular Filt Rate > 60; Ethanol < 10 mg/dL; Glucose Random 121 mg/dL (60-115); Hematocrit 31.9 % (37.0-47.0); Hemoglobin 9.6 g/dl (12.0-16.0); Imm Gran Abs Auto 0.01 X10*3/uL (0.00-0.03); Imm Gran Pct Auto 0.1 % (0.0-0.4); Lymphocytes Percent Auto 70.2 % (20-40); MANUAL DIFF FLAG SCAN; Mean Corpuscular HGB Conc 30.1 g/dl (31.0-35.0); Mean Corpuscular Hemoglobin 23.9 pg (27.0-33.0); Mean Corpuscular Volume 79.6 fL (80.0-98.0); Mean Platelet Volume 9.9 fL (9.4-12.3); Monocytes Absolute Auto 0.6 X10*3/uL (0.1-1.2); Monocytes Percent Auto 5.7 % (2-11); Neutrophils Absolute Auto 2.2 x10*3/uL (2.0-8.3); Neutrophils Percent Auto 21.7 % (45-73); Platelet Count 196 X10*3/uL (160-400); Potassium 4.2 mmol/L (3.3-5.1); Red Blood Count 4.01 X10*6/uL (4.20-5.50); Red Cell Distribution Width 15.7 % (11.0-16.0); SCAN SMEAR FLAG 1; Salicylate < 5.0 mg/dL (15-30); Sodium 137 mmol/L (135-145); Total Protein 7.3 g/dL (6.5-8.0); White Blood Count 10.2 X10*3/uL (4.8-10.8)
[2023-01-23 18:54] LABS: Lymphocytes Absolute Auto 7.1 X10*3/uL (1.2-4.9)
[2023-01-23 19:07] LABS: SLIDE REVIEW VERIFIED
--- NOTE | 2023-01-23 19:07 | ED_ITS ---
HPI - Psych General Chief Complaint: Psychiatric Symptoms Stated Complaint: SI W/ PLAN Time Seen by Provider: 01/23/23 17:06 Source: patient and EMS Mode of arrival: EMS Limitations: no limitations History of Present Illness HPI Narrative: 32 year old female hx of obesity, diabetes, hep c , ptsd, htn, bipolar d/o presents for depression and si unwilling to disclose plan but states she has one. He has been feeling this way for the past week or so. She reports she was recently at [facility] for 5 months recently discharged to the living room. Patient denies visual, auditory and tactile hallucinations. Denies drugs, alcohol and tobacco. No medical complaints today. Related Data Home Medications Medication Instructions Recorded Confirmed bupropion HCl 150 mg 24 hr tablet, 150 mg PO QAM 01/23/23 01/23/23 extended release bupropion HCl 300 mg 24 hr tablet, 300 mg PO DAILY 01/23/23 01/23/23 extended release clonazepam 1 mg tablet 1 mg PO BID PRN anxiety 01/23/23 01/23/23 dextroamphetamine-amphetamine ER 1 cap PO QAM 01/23/23 01/23/23 10 mg 24hr capsule,extend release (Adderall XR) dextroamphetamine-amphetamine ER 1 cap PO QAM 01/23/23 01/23/23 30 mg 24hr capsule,extend release (Adderall XR) folic acid 1 mg tablet 1 mg PO DAILY 01/23/23 01/23/23 ibuprofen 600 mg tablet 600 mg PO BID PRN Pain (Scale 01/23/23 01/23/23 Score 1-3) lurasidone 20 mg tablet 20 mg PO DAILY 01/23/23 01/23/23 lurasidone 80 mg tablet 80 mg PO DAILY 01/23/23 01/23/23 oxybutynin chloride 5 mg tablet 5 mg PO TID 01/23/23 01/23/23 propranolol 10 mg tablet 10 mg PO BID 01/23/23 01/23/23 pyridoxine (vitamin B6) 50 mg 50 mg PO DAILY 01/23/23 01/23/23 tablet venlafaxine 75 mg tablet 75 mg PO DAILY 01/23/23 01/23/23 Allergies Allergy/AdvReac Type Severity Reaction Status Date / Time meperidine [From Demerol] Allergy Mild Unknown Verified 04/06/22 09:27 Penicillins Allergy Mild Unknown Verified 04/06/22 09:27 propoxyphene Allergy Mild Unknown Verified 04/06/22 09:27 [From [place]-N 50] Sulfa (Sulfonamide Allergy Mild Hives Verified 04/06/22 09:27 Antibiotics) penicillin V Allergy Unknown Swelling Verified 04/06/22 09:27 Review of Systems 2 Review of Systems: Constitutional : No Weight loss, No Fever, No Chills, No Fatigue, No Malaise ENT/Mouth : No sore throat, No Rhinorrhea Eyes: No Eye Pain, No Swelling, No Redness Cardiovascular : No Chest Pain, No SOB, No Dyspnea on Exertion, No Orthopnea, No Edema, No Palpitations Respiratory : No Cough, No Sputum, No Wheezing Gastrointestinal : No Nausea, No Vomiting, No Diarrhea, No Constipation, No abdominal Pain, No Hematochezia, No Melena Genitourinary : No Dysuria, No Urinary Frequency, No Hematuria, Musculoskeletal : No joint pain, No Myalgias, No Joint Swelling Skin : No Skin Lesions, No rash Neuro : No Weakness, No Numbness, No Dizziness, No Headache Psych : No Anxiety/Panic, + Depression, + SI no HI All other systems reviewed and are negative Yes all other systems are reviewed and are negative [facility] Past Medical History Attestation statement: The following information was validated with the patient. Source: old records reviewed and nursing notes reviewed Medical History Hepatitis C antibody positive in blood Hypertension Social History Household Members: None Household Members Other:: Live at a program Housing: Homeless Housing Other:: [facility] Do you presently have visiting nurse or other home services: No Patient Tobacco Use Status: Current everyday Tobacco user Tobacco use type: Smokeless Tobacco Cigarette Packs Per Day: 0.5 Cigarettes Per Day: 10.0 Years Smoked: 12 e-Cigarette/Vaping Use: Currently Using Second Hand Smoke Exposure: No Substance Use Type: Amphetamines, Crack/Cocaine, Heroin and Opiates service: No Sexual orientation: Straight/Heterosexual Physical Exam 2 Vital Signs: Vital Signs: Last Vital Signs Temp 97.7 F 01/23/23 16:59 Pulse 90 11/21/23 16:59 Resp 18 01/23/23 18:16 BP 133/81 01/23/23 16:59 Pulse Ox 95 01/23/23 16:59 O2 Del Method Room Air 01/23/23 16:59 BMI result Body Mass Index 49.1 vss Appearance: Alert.? Oriented X3.? No acute distress.? Head: Normocephalic, atraumatic, no step-offs or deformities Eyes: Pupils equal, round and reactive to light.? ENT: Pharynx normal.? Neck: Normal inspection.? Neck supple.? CVS: Normal heart rate and rhythm.? Pulses normal.? Respiratory: No respiratory distress.? Breath sounds normal.? Abdomen: Soft and nontender.? Skin: Skin warm and dry.? Normal skin color.? Normal skin turgor.? Extremities: No lower extremity edema.? No calf ttp. 5/5 strength to bilateral upper and lower extremities Neuro: Oriented X 3.? No motor deficit.? No sensory deficit. CN 2-12 intact Course Reevaluation(s) Reevaluation #1: CBC appears to be around patient's baseline with a microcytic anemia. Chemistry no acute findings requiring intervention. UA pending. Urine negative. Urine toxicology positive for amphetamines negative salicylates, acetaminophen and ethanol. At this time patient to be placed into observation to allow more time to be evaluated by behavioral health team. At time observation was started patient common cooperative no acute distress will continue to monitor Time: 19:14 Medical Decision Making Medical Decision Making [facility] Narrative: 1905 32-year-old female presents with worsening depression and suicidal ideation unwilling to disclose plan. Feeling this way for the past few days. Physical exam benign Likely anxiety with depression and suicidal ideation. Other differentials include bipolar versus schizophrenia versus PTSD. Unlikely metabolic derangement Plan medical clearance evaluation by behavioral health team Differential Diagnosis Differential Diagnoses: The differential diagnosis associated with the presentation includes Likely anxiety with depression and suicidal ideation. Other differentials include bipolar versus schizophrenia versus PTSD. Unlikely metabolic derangement Admission/Observation Consideration of admission/observation: Escalation of care including admission/observation considered possible psych Lab Data [facility] Lab Attestation statement: I reviewed the patient's lab results. 01/23/23 18:28 01/23/23 18:28 Labs: Lab Results 01/23/23 01/23/23 Range/Units 17:09 18:28 WBC 10.2 (4.8-10.8) X10*3/uL RBC 4.01 L (4.20-5.50) X10*6/uL Hgb 9.6 L (12.0-16.0) g/dl Hct 31.9 L (37.0-47.0) % MCV 79.6 L (80.0-98.0) fL MCH 23.9 L (27.0-33.0) pg MCHC 30.1 L (31.0-35.0) g/dl RDW 15.7 (11.0-16.0) % Plt Count 196 (160-400) X10*3/uL MPV 9.9 (9.4-12.3) fL Immature Gran % (Auto) 0.1 (0.0-0.4) % Neut % (Auto) 21.7 L (45-73) % Lymph % (Auto) 70.2 H (20-40) % Iron % (Auto) 5.7 (2-11) % Eos % (Auto) 2.0 (0-4) % Baso % (Auto) 0.3 (0-2) % Lymph # (Auto) 7.1 H (1.2-4.9) X10*3/uL Iron # (Auto) 0.6 (0.1-1.2) X10*3/uL Eos # (Auto) 0.2 (0.0-0.4) X10*3/uL Baso # (Auto) 0.0 (0.0-0.2) X10*3/uL Abs Immat Gran (auto) 0.01 (0.00-0.03) X10*3/uL Absolute Neuts (auto) 2.2 (2.0-8.3) x10*3/uL Absolute Nucleated RBC 0.000 (0.0-0.012) X10*3/uL Nucleated RBC % (auto) 0.0 (0.0-0.2) /100WBC Smear Tech's Comments VERIFIED Sodium 137 (135-145) mmol/L Potassium 4.2 (3.3-5.1) mmol/L Chloride 100 (96-108) mmol/L Carbon Dioxide 32 H (22-29) mmol/L Anion Gap 9 L (12-20) BUN 7 L (9-16) mg/dL Creatinine 0.66 (0.5-1.4) mg/dL Estim Creat Clear Calc 146.5 Estimated GFR > 60 Random Glucose 121 H (60-115) mg/dL Calcium 9.1 (8.4-10.2) mg/dL Total Bilirubin 0.2 (0.0-1.0) mg/dL AST 13 (5-31) U/L ALT 21 (0-31) U/L Alkaline Phosphatase 82 (39-117) U/L Total Protein 7.3 (6.5-8.0) g/dL Albumin 3.9 (3.5-5.0) g/dL Urine Test NEGATIVE (NEGATIVE) Salicylates < 5.0 L (15-30) mg/dL Urine Opiates Screen Not Detected (Not Detect) Urine Fentanyl Screen Not Detected (Not Detect) Acetaminophen < 3 (<30) mcg/mL Ur Barbiturates Screen Not Detected (Not Detect) Ur Phencyclidine Scrn Not Detected (Not Detect) Ur Amphetamines Screen POSITIVE H (Not Detect) U Benzodiazepines Scrn Not Detected (Not Detect) Urine Cocaine Screen Not Detected (Not Detect) U Marijuana (THC) Screen Not Detected (Not Detect) Ethyl Alcohol < 10 mg/dL External Record Review External record reviewed: Inpatient record, Office record, Outpatient record, Prior outpatient labs, Prior outpatient radiology, Primary care record and Outside ED record Chronic Conditions Patient?s care impacted by: Diabetes, Hypertension and Other (mental health d.o ) Social Determinants Patient?s care significantly limited by Social Determinants of Health including: Inadequate housing, Low income, Alcoholism and drug addiction in family, Problems related to primary support group, Unemployment, Problems related to employment and Other Social Determinant of Health Critical Care Time Critical Care Time Critical Care Time: No Discharge Plan Discharge Clinical Impression: Suicidal ideation, Depression Patient Disposition: Still a Patient Prescriptions: No Action venlafaxine 75 mg tablet 75 mg PO DAILY clonazepam 1 mg tablet 1 mg PO BID PRN (Reason: anxiety ) propranolol 10 mg tablet 10 mg PO BID pyridoxine (vitamin B6) 50 mg tablet 50 mg PO DAILY folic acid 1 mg tablet 1 mg PO DAILY dextroamphetamine-amphetamine [Adderall XR] 10 mg capsule,extended release 24hr 1 cap PO QAM ibuprofen 600 mg tablet 600 mg PO BID PRN (Reason: Pain (Scale Score 1-3)) dextroamphetamine-amphetamine [Adderall XR] 30 mg capsule,extended release 24hr 1 cap PO QAM oxybutynin chloride 5 mg tablet 5 mg PO TID bupropion HCl 300 mg tablet extended release 24 hr 300 mg PO DAILY bupropion HCl 150 mg tablet extended release 24 hr 150 mg PO QAM lurasidone 80 mg tablet 80 mg PO DAILY lurasidone 20 mg tablet 20 mg PO DAILY Interventions: [place]-Suicide Risk Severity Scale Last Done: 01/23/23 18:14
[2023-01-23 19:16] LABS: Appearance Urine Clear; Color Urine Yellow; Glucose Urine UA Negative (Negative); Leukocyte Esterase Urine Trace (Negative); Nitrite Urine Positive (Negative); Specific Gravity - Urine 1.015 (1.005-1.025); UMIC TRIGGER UACC YES; Urine Blood Negative (Negative); Urine Ketones Negative (Negative); Urine Protein Negative (Neg-Trace)
--- NOTE | 2023-01-23 19:19 | PHA.MEDREC ---
Pharmacy Consult ? Medication Reconciliation Pharmacy has reviewed the medication reconciliation complete by Gil
[2023-01-23 19:20] LABS: Bacteria Urine 4+ (None Seen); Hyaline Casts Urine 0-2 /LPF (0-2); RBC Urine 0-2 /HPF (0-2); Squamous Epithelial Cell Urine 0-2 /HPF (0-2); UACC Culture Trigger YES; WBC Urine 0-5 /HPF (0-5)
--- NOTE | 2023-01-23 22:02 | PC.NURSE ---
Medications not available in the [facility]. Pharmacy aware and will deliver them. Pt to be medicated once meds are available.
[2023-01-23] MEDS: Propranolol HCL 10 MG TABLET PO (22:13)
[2023-01-23] MEDS: oxyBUTYnin chloride 5 MG TABLET PO (22:13)
[2023-01-23 22:16] VITALS: BP 124/75; PULSE 75; RESP 18; TEMP 36.4; O2SAT 95
[2023-01-23] MEDS: Ibuprofen 600 MG TABLET PO (22:23)
[2023-01-23] MEDS: clonazePAM 1 MG TABLET PO (22:35)
--- NOTE | 2023-01-24 | ECG_ITS ---
Test Reason : check qt Blood Pressure : / mmHG Vent. Rate : 082 BPM Atrial Rate : 082 BPM P-R Int : 144 ms QRS Dur : 108 ms QT Int : 378 ms P-R-T Axes : 066 076 072 degrees QTc Int : 441 ms Normal sinus rhythm Incomplete right bundle branch block Borderline ECG When compared with ECG of 24-MAR-2022 19:52, Nonspecific T wave abnormality, improved in Anterior leads Referred By: Rhonda Varela Electronically Signed By:WALDO BRIONES MD
[2023-01-24] MEDS: Gabapentin 300 MG CAPSULE PO (00:41)
[2023-01-24 00:42] VITALS: BP 132/84; PULSE 89; RESP 17; TEMP 36.8; O2SAT 94
--- NOTE | 2023-01-24 02:24 | PC.NURSE ---
Care team at bedside reporting patient will be a bedsearch as pt continues to exhibit SI with plans to OD. Care team to complete section 12 paperwork. Pt aware of plan of care.
--- NOTE | 2023-01-24 06:40 | PC.NURSE ---
Pts Methadone dose verified with Tiffanie at [facility]. Pt last dose given 01/23/2023 of 190mg. Form faxed to pharmacy.
--- NOTE | 2023-01-24 06:44 | PC.NURSE ---
Pt reports taking daily medications that are not currently being prescribed. Pharmacy contacted regarding pts med req not in order as med req was previously completed. Pharmacy to verify pts complete med list.
--- NOTE | 2023-01-24 06:46 | HE.PHANOTE ---
re: methadone Pharmacy recieved patients methadone verification sheet. Last dosed with [facility] ([phone])with 190 mg on 01/23/23, confirmed with darryn
--- NOTE | 2023-01-24 08:15 | PC.NURSE ---
patient appears to remain asleep at present respirations are even and unlabored patient appears in no distress
[2023-01-24 09:43] LABS: COVID-19 Test Negative (Negative); IDNOW Serial# 9DB6401D
[2023-01-24] MEDS: Propranolol HCL 10 MG TABLET PO ×2 (10:21→19:53)
[2023-01-24] MEDS: Dextroamphetamine/Amphetamine XR 10 MG CAP.ER.24H 30 MG PO (10:21)
[2023-01-24] MEDS: buPROPion HCl XL 150 MG TAB.ER.24H PO (10:21)
[2023-01-24] MEDS: buPROPion HCl XL 300 MG TAB.ER.24H PO (10:22)
[2023-01-24] MEDS: Pyridoxine HCl (Vitamin B6) 50 MG TABLET PO (10:22)
[2023-01-24] MEDS: Lurasidone HCl 20 MG TABLET PO ×2 (10:22→19:53)
[2023-01-24] MEDS: oxyBUTYnin chloride 5 MG TABLET PO ×3 (10:22→19:53)
[2023-01-24] MEDS: Lurasidone HCl 80 MG TABLET PO (10:22)
[2023-01-24] MEDS: Folic Acid 1 MG TABLET PO (10:30)
[2023-01-24] MEDS: Dextroamphetamine/Amphetamine XR 10 MG CAP.ER.24H PO (10:37)
[2023-01-24] MEDS: clonazePAM 1 MG TABLET PO ×2 (10:37→19:54)
[2023-01-24] MEDS: methADONE HCl 20 MG/2 ML ORAL.CONC 190 MG PO (10:37)
--- NOTE | 2023-01-24 10:59 | PHA.MEDREC ---
Pharmacy Consult ? Medication Reconciliation Pharmacy has completed the medication reconciliation. Pod called up stating patient says she was missing some medications, reviewed recent claim history and spoke to patient to confirm, will notify provider of updates
[2023-01-24 11:07] VITALS: BP 119/72; PULSE 75; RESP 15; TEMP 36.1; O2SAT 93
[2023-01-24] MEDS: Gabapentin 600 MG TABLET PO ×2 (16:23→19:52)
[2023-01-24 18:00] VITALS: BP 136/78; PULSE 83; RESP 16; TEMP 36.1; O2SAT 96
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
[2023-01-24 19:50] VITALS: BP 131/74; PULSE 93; RESP 16; TEMP 36.1; O2SAT 96
[2023-01-24] MEDS: cloNIDine HCL 0.2 MG TABLET 0.4 MG PO (19:52)
[2023-01-24] MEDS: chlorproMAZINE HCl 25 MG TABLET 50 MG PO (19:52)
[2023-01-24] MEDS: Ibuprofen 600 MG TABLET PO (20:12)
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
--- NOTE | 2023-01-25 | PC.NURSE ---
gas prover completed @ 18:15 with Abi Young RN. NO skin concerns, no contraband found.
[2023-01-25 06:00] VITALS: BP 107/63; PULSE 77; RESP 18; TEMP 36.2; O2SAT 98
[2023-01-25] MEDS: Omeprazole 20 MG CAPSULE.DR PO ×2 (06:09→17:06)
[2023-01-25] MEDS: Venlafaxine HCL 25 MG TABLET 112.5 MG PO (08:36)
[2023-01-25] MEDS: Dextroamphetamine/Amphetamine XR 10 MG CAP.ER.24H 40 MG PO (08:38)
[2023-01-25] MEDS: Gabapentin 600 MG TABLET PO ×3 (08:39→22:52)
[2023-01-25] MEDS: buPROPion HCl XL 300 MG TAB.ER.24H PO (08:39)
[2023-01-25] MEDS: hydroCHLOROthiazide 12.5 MG TABLET PO (08:39)
[2023-01-25] MEDS: buPROPion HCl XL 150 MG TAB.ER.24H PO (08:39)
[2023-01-25] MEDS: Propranolol HCL 10 MG TABLET PO ×2 (08:40→22:53)
[2023-01-25] MEDS: Multivitamin TABLET 1 TAB PO (08:40)
[2023-01-25] MEDS: oxyBUTYnin chloride 5 MG TABLET PO ×3 (08:40→22:52)
[2023-01-25] MEDS: metFORMIN HCl 500 MG TABLET PO ×2 (08:40→17:06)
[2023-01-25] MEDS: methADONE HCl 20 MG/2 ML ORAL.CONC 190 MG PO (08:41)
[2023-01-25] MEDS: clonazePAM 1 MG TABLET PO ×2 (08:49→22:53)
--- NOTE | 2023-01-25 12:26 | HO.PSYCHPN ---
Subjective Subjective Date of Service: 01/25/23 Reason For Visit: SI Interim History: Met with patient; discussed with team Patient reports still very depressed and with suicidal ideation; feels she can keep herself safe. You had medications with patient Mental Status Exam Mental Status Exam Narrative: Pt is alert and oriented; behavior is cooperative, calm; patient is not in distress; dressed in hospital attire, unkempt and malodorous; mood is described as not good and affect congruent, downcast; eye contact appropriate; Speech is a little latent; normal rate, volume and prosody and not pressured; psychomotor retardation present; thought process is organized and goal directed; Thought content is on dealing with depression, avoiding SI, tx; otherwise pertinent to relevant topics and without any delusional content, paranoid ideations or grandiosity; intermittent passive SI; no HI. Seems a little internally preoccupied but denies AVH. Patients insight and judgment impaired. Diagnostics Vital Signs (24Hr): Vital Signs - 24 hr 01/24/23 18:00 01/24/23 19:50 01/25/23 06:00 Temperature 97 F 97 F 97.2 F Pulse Rate 83 93 77 Respiratory Rate 16 16 18 Blood Pressure 136/78 131/74 107/63 Pulse Oximetry 96 96 98 Oxygen Delivery Method Room Air Room Air Room Air BMI result Body Mass Index 49.1 Labs 01/23/23 18:28 01/23/23 18:28 Labs: Laboratory Results - last 48 hr 01/23/23 01/23/23 01/24/23 17:09 18:28 09:23 WBC 10.2 RBC 4.01 L Hgb 9.6 L Hct 31.9 L MCV 79.6 L MCH 23.9 L MCHC 30.1 L RDW 15.7 Plt Count 196 MPV 9.9 Immature Gran % (Auto) 0.1 Neut % (Auto) 21.7 L Lymph % (Auto) 70.2 H [place] % (Auto) 5.7 Eos % (Auto) 2.0 Baso % (Auto) 0.3 Lymph # (Auto) 7.1 H [place] # (Auto) 0.6 Eos # (Auto) 0.2 Baso # (Auto) 0.0 Abs Immat Gran (auto) 0.01 Absolute Neuts (auto) 2.2 Absolute Nucleated RBC 0.000 Nucleated RBC % (auto) 0.0 Smear Tech's Comments VERIFIED Sodium 137 Potassium 4.2 Chloride 100 Carbon Dioxide 32 H Anion Gap 9 L BUN 7 L Creatinine 0.66 Estim Creat Clear Calc 146.5 Estimated GFR > 60 Random Glucose 121 H Calcium 9.1 Total Bilirubin 0.2 AST 13 ALT 21 Alkaline Phosphatase 82 Total Protein 7.3 Albumin 3.9 Urine Color Yellow Urine Appearance Clear Urine pH 7.0 Ur Specific [place] 1.015 Urine Protein Negative Urine Glucose (UA) Negative Urine Ketones Negative Urine Blood Negative Urine Nitrite Positive H Ur Leukocyte Esterase Trace H Urine RBC 0-2 Urine WBC 0-5 Ur Squamous Epith Cells 0-2 Urine Bacteria 4+ Hyaline Casts 0-2 Urine Test NEGATIVE Salicylates < 5.0 L Urine Opiates Screen Not Detected Urine Fentanyl Screen Not Detected Acetaminophen < 3 Ur Barbiturates Screen Not Detected Ur Phencyclidine Scrn Not Detected Ur Amphetamines Screen POSITIVE H U Benzodiazepines Scrn Not Detected Urine Cocaine Screen Not Detected U Marijuana (THC) Screen Not Detected Ethyl Alcohol < 10 COVID-19 (AJ) Negative COVID-19 Clin Com See Note Medications Medications Current Medications Acetaminophen (Acetaminophen 325 Mg Tablet) 650 mg PO Q6H PRN PRN Reason: Headache/Pain Mild Scale (1-3) Al Hydroxide/Mg Hydroxide (Magnesium Hydrox/Alum Hydrox 30 Ml Oral.Susp) 30 ml PO Q6H PRN PRN Reason: Heartburn/Nausea Amphetamine/Dextroamphetamine (Dextroamphetamine/Amphetamine Xr 10 Mg Cap.Er.24h) 40 mg PO DAILY [facility] Last Admin: 01/25/23 08:38 Dose: 40 mg Bupropion HCl (Bupropion Hcl Xl 150 Mg Tab.Er.24h) 150 mg PO DAILY [facility] Last Admin: 01/25/23 08:39 Dose: 150 mg Bupropion HCl (Bupropion Hcl Xl 300 Mg Tab.Er.24h) 300 mg PO DAILY [facility] Last Admin: 01/25/23 08:39 Dose: 300 mg Chlorpromazine HCl (Chlorpromazine Hcl 25 Mg Tablet) 50 mg PO BEDTIME [facility] Last Admin: 01/24/23 19:52 Dose: 50 mg Chlorpromazine HCl (Chlorpromazine Hcl 25 Mg Tablet) 25 mg PO DAILY PRN PRN Reason: anxiety Clonazepam (Clonazepam 1 Mg Tablet) 1 mg PO BID PRN PRN Reason: anxiety Last Admin: 01/25/23 08:49 Dose: 1 mg Clonidine HCl (Clonidine Hcl 0.2 Mg Tablet) 0.4 mg PO BEDTIME [facility]; Protocol Last Admin: 01/24/23 19:52 Dose: 0.4 mg Clonidine HCl (Clonidine Hcl 0.2 Mg Tablet) 0.2 mg PO BID PRN; Protocol PRN Reason: anxiety Gabapentin (Gabapentin 600 Mg Tablet) 600 mg PO TID [facility] Last Admin: 01/25/23 08:39 Dose: 600 mg Hydrochlorothiazide (Hydrochlorothiazide 12.5 Mg Tablet) 12.5 mg PO DAILY [facility]; Protocol Last Admin: 01/25/23 08:39 Dose: 12.5 mg Hydroxyzine HCl (Hydroxyzine Hcl 25 Mg Tablet) 25 mg PO Q6H PRN PRN Reason: Anxiety Ibuprofen (Ibuprofen 600 Mg Tablet) 600 mg PO BID PRN PRN Reason: Pain (Scale Score 1-3) Last Admin: 01/24/23 20:12 Dose: 600 mg Lurasidone HCl (Lurasidone Hcl 40 Mg Tablet) 120 mg PO DAILY@1800 [facility] Magnesium Hydroxide (Milk Of Magnesia 30 Ml Oral.Susp) 30 ml PO DAILY PRN PRN Reason: Constipation Metformin HCl (Metformin Hcl 500 Mg Tablet) 500 mg PO BIDWM [facility] Last Admin: 01/25/23 08:40 Dose: 500 mg Methadone HCl (Methadone Hcl 20 Mg/2 Ml Oral.Conc) 190 mg PO DAILY [facility] Last Admin: 01/25/23 08:41 Dose: 190 mg Multivitamins/Vitamin C (Multivitamin Tablet) 1 tab PO DAILY [facility] Last Admin: 01/25/23 08:40 Dose: 1 tab Nicotine (Nicotine 21 Mg Patch.Td24) 21 mg TRANSDERMA DAILY PRN PRN Reason: smoking cessation Nicotine Polacrilex (Nicotine Polacrilex 2 Mg Gum) 4 mg BUCCAL Q2H PRN PRN Reason: Nicotine Cravings Omeprazole (Omeprazole 20 Mg Capsule.Dr) 20 mg PO BID@0630,1630 [facility] Last Admin: 01/25/23 06:09 Dose: 20 mg Oxybutynin Chloride (Oxybutynin Chloride 5 Mg Tablet) 5 mg PO TID [facility] Last Admin: 01/25/23 08:40 Dose: 5 mg Propranolol HCl (Propranolol Hcl 10 Mg Tablet) 10 mg PO BID [facility]; Protocol Last Admin: 01/25/23 08:40 Dose: 10 mg Venlafaxine HCl (Venlafaxine Hcl 25 Mg Tablet) 112.5 mg PO DAILY [facility] Last Admin: 01/25/23 08:36 Dose: 112.5 mg Allergies Allergies Allergy/AdvReac Type Severity Reaction Status Date / Time meperidine [From Demerol] Allergy Mild Unknown Verified 04/06/22 09:27 Penicillins Allergy Mild Unknown Verified 04/06/22 09:27 propoxyphene Allergy Mild Unknown Verified 04/06/22 09:27 [From Darvocet-N 50] Sulfa (Sulfonamide Allergy Mild Hives Verified 04/06/22 09:27 Antibiotics) penicillin V Allergy Unknown Swelling Verified 04/06/22 09:27 Assessment & Plan Assessment & Plan (1) Bipolar 1 disorder, depressed, severe: Status: Acute Code(s): F31.4 - Bipolar disorder, current episode depressed, severe, without psychotic features (2) Opioid use disorder, moderate, in early remission: Status: Acute Code(s): F11.21 - Opioid dependence, in remission (3) PTSD (post-traumatic stress disorder): Status: Acute Code(s): F43.10 - Post-traumatic stress disorder, unspecified (4) Diabetes: Status: Acute Code(s): E11.9 - Type 2 diabetes mellitus without complications Plan Patient is a 32-year-old female with history of bipolar disorder, PTSD, diabetes, opioid use disorder in sustained remission on methadone, who presents for worsening depression following unintended discontinuation of Latuda. Patient reports that she was doing quite well after her last discharge, April 2022 and has not been to the hospital since. [facility] at [facility] which she found very helpful, was seeing her daughter, taking less p.r.n. clonazepam, sober and was doing well up until about a month ago when her insurance stopped covering Latuda; provider reapplied for prior Auth however took considerable time. Since then her mood started to decline and she became really depressed, with low energy, diminished interest, poor concentration, sleep disturbance, appetite disturbance and found it difficult to fulfill obligations at the program. Patient flipped into a mixed-manic episode, talking fast, no sleep, agitated, out at night smoking past curfew, inefficient and impulsively left the program. Patient then became depressed again. She eventually was able to restart Latuda for the past several days however she remains very depressed and started feeling suicidal so self presented to not to hurt herself. Denies any relapse, drug or alcohol use though reports she got close to relapsing with opioids. Denies AVH. Patient remains depressed; wants to get back on former home dose Hospital course: 01/25 patient reports continued depression, continued SI; patient understands that she just got back to her regular dose of Latuda and recovery will take more time; continue current treatment plan Plan: CV Q 15 minute checks Continue home medications; song writer reviewed patient's medication list in detail Continue Latuda to 120 mg daily at dinnertime Patient wants to get back [facility] but must reapply Dispo planning with social Work Patient educated on: diagnosis and medication risk/benefits Informed Consent: understands Reason for continued inpatient stay Substantial Risk for: harm to self Time Spent With Patient Time: Total time managing care of this patient today ____ minutes.
[2023-01-25] MEDS: chlorproMAZINE HCl 25 MG TABLET PO (13:09)
[2023-01-25] MEDS: Ibuprofen 600 MG TABLET PO ×2 (13:10→22:59)
[2023-01-25] MEDS: cloNIDine HCL 0.2 MG TABLET PO ×2 (13:10→17:05)
[2023-01-25 17:00] VITALS: BP 106/57; PULSE 88; RESP 16; TEMP 36.1; O2SAT 97
[2023-01-25] MEDS: hydrOXYzine HCL 25 MG TABLET PO (17:05)
[2023-01-25] MEDS: Lurasidone HCl 40 MG TABLET 120 MG PO (17:06)
[2023-01-25 22:50] VITALS: BP 122/74; PULSE 99; RESP 16
[2023-01-25] MEDS: chlorproMAZINE HCl 25 MG TABLET 50 MG PO (22:53)
[2023-01-25] MEDS: cloNIDine HCL 0.2 MG TABLET 0.4 MG PO (22:53)
[2023-01-26] MEDS: Omeprazole 20 MG CAPSULE.DR PO (06:17)
[2023-01-26] MEDS: Venlafaxine HCL 25 MG TABLET 112.5 MG PO (08:42)
[2023-01-26] MEDS: metFORMIN HCl 500 MG TABLET PO ×2 (08:43→18:07)
[2023-01-26] MEDS: Gabapentin 600 MG TABLET PO ×3 (08:43→20:30)
[2023-01-26] MEDS: buPROPion HCl XL 150 MG TAB.ER.24H PO (08:43)
[2023-01-26] MEDS: oxyBUTYnin chloride 5 MG TABLET PO ×3 (08:43→20:31)
[2023-01-26] MEDS: buPROPion HCl XL 300 MG TAB.ER.24H PO (08:43)
[2023-01-26] MEDS: Propranolol HCL 10 MG TABLET PO ×2 (08:43→20:31)
[2023-01-26] MEDS: Dextroamphetamine/Amphetamine XR 10 MG CAP.ER.24H 40 MG PO (08:43)
[2023-01-26] MEDS: Multivitamin TABLET 1 TAB PO (08:43)
[2023-01-26] MEDS: hydroCHLOROthiazide 12.5 MG TABLET PO (08:44)
[2023-01-26 08:45] VITALS: BP 114/68; PULSE 73; RESP 16; TEMP 36.1; O2SAT 98
[2023-01-26] MEDS: methADONE HCl 20 MG/2 ML ORAL.CONC 190 MG PO (08:45)
[2023-01-26] MEDS: Ibuprofen 600 MG TABLET PO ×2 (08:52→20:32)
[2023-01-26] MEDS: cloNIDine HCL 0.2 MG TABLET PO ×2 (08:52→18:07)
--- NOTE | 2023-01-26 09:51 | P.PNPSI_ITS ---
Subjective Subjective Date of Service: 01/26/23 Reason For Visit: SI Interim History: met with patient; discussed with team Remains quite depressed, isolating in her room, thoughts of SI. Discussed behavioral activation to which patient agrees and will push herself to engage with others Mental Status Exam Mental Status Exam Narrative: Pt is alert and oriented; behavior is cooperative, calm; patient is not in distress; dressed in hospital attire, unkempt and malodorous; mood is described as not good and affect congruent, downcast; eye contact appropriate; Speech is a little latent; normal rate, volume and prosody and not pressured; psychomotor retardation present; thought process is organized and goal directed; Thought content is on dealing with depression, SI, tx; otherwise pertinent to relevant topics and without any delusional content, paranoid ideations or grandiosity; intermittent passive SI; no HI. Seems a little internally preoccupied but denies AVH. Patients insight and judgment impaired. Diagnostics Vital Signs (24Hr): Vital Signs - 24 hr 01/25/23 17:00 01/25/23 22:50 01/26/23 08:45 Temperature 97 F 97 F Pulse Rate 88 99 73 Respiratory Rate 16 16 16 Blood Pressure 106/57 L 122/74 114/68 Pulse Oximetry 97 98 Oxygen Delivery Method Room Air Room Air BMI result Body Mass Index 49.1 Labs 01/23/23 18:28 01/23/23 18:28 Medications Medications Current Medications Acetaminophen (Acetaminophen 325 Mg Tablet) 650 mg PO Q6H PRN PRN Reason: Headache/Pain Mild Scale (1-3) Al Hydroxide/Mg Hydroxide (Magnesium Hydrox/Alum Hydrox 30 Ml Oral.Susp) 30 ml PO Q6H PRN PRN Reason: Heartburn/Nausea Amphetamine/Dextroamphetamine (Dextroamphetamine/Amphetamine Xr 10 Mg Cap.Er.24h) 40 mg PO DAILY AMELIE Last Admin: 01/26/23 08:43 Dose: 40 mg Bupropion HCl (Bupropion Hcl Xl 150 Mg Tab.Er.24h) 150 mg PO DAILY AMELIE Last Admin: 01/26/23 08:43 Dose: 150 mg Bupropion HCl (Bupropion Hcl Xl 300 Mg Tab.Er.24h) 300 mg PO DAILY AMELIE Last Admin: 01/26/23 08:43 Dose: 300 mg Chlorpromazine HCl (Chlorpromazine Hcl 25 Mg Tablet) 50 mg PO BEDTIME AMELIE Last Admin: 01/25/23 22:53 Dose: 50 mg Chlorpromazine HCl (Chlorpromazine Hcl 25 Mg Tablet) 25 mg PO DAILY PRN PRN Reason: anxiety Last Admin: 01/25/23 13:09 Dose: 25 mg Clonazepam (Clonazepam 1 Mg Tablet) 1 mg PO BID PRN PRN Reason: anxiety Last Admin: 01/25/23 22:53 Dose: 1 mg Clonidine HCl (Clonidine Hcl 0.2 Mg Tablet) 0.4 mg PO BEDTIME AMELIE; Protocol Last Admin: 01/25/23 22:53 Dose: 0.4 mg Clonidine HCl (Clonidine Hcl 0.2 Mg Tablet) 0.2 mg PO BID PRN; Protocol PRN Reason: anxiety Last Admin: 01/26/23 08:52 Dose: 0.2 mg Gabapentin (Gabapentin 600 Mg Tablet) 600 mg PO TID AMELIE Last Admin: 01/26/23 08:43 Dose: 600 mg Hydrochlorothiazide (Hydrochlorothiazide 12.5 Mg Tablet) 12.5 mg PO DAILY REPLACED BY [facility]; Protocol Last Admin: 01/26/23 08:44 Dose: 12.5 mg Hydroxyzine HCl (Hydroxyzine Hcl 25 Mg Tablet) 25 mg PO Q6H PRN PRN Reason: Anxiety Last Admin: 01/25/23 17:05 Dose: 25 mg Ibuprofen (Ibuprofen 600 Mg Tablet) 600 mg PO BID PRN PRN Reason: Pain (Scale Score 1-3) Last Admin: 01/26/23 08:52 Dose: 600 mg Lurasidone HCl (Lurasidone Hcl 40 Mg Tablet) 120 mg PO DAILY@1800 REPLACED BY [facility] Last Admin: 01/25/23 17:06 Dose: 120 mg Magnesium Hydroxide (Milk Of Magnesia 30 Ml Oral.Susp) 30 ml PO DAILY PRN PRN Reason: Constipation Metformin HCl (Metformin Hcl 500 Mg Tablet) 500 mg PO BIDWM REPLACED BY [facility] Last Admin: 01/26/23 08:43 Dose: 500 mg Methadone HCl (Methadone Hcl 20 Mg/2 Ml Oral.Conc) 190 mg PO DAILY AMELIE Last Admin: 01/26/23 08:45 Dose: 190 mg Multivitamins/Vitamin C (Multivitamin Tablet) 1 tab PO DAILY AMELIE Last Admin: 01/26/23 08:43 Dose: 1 tab Nicotine (Nicotine 21 Mg Patch.Td24) 21 mg TRANSDERMA DAILY PRN PRN Reason: smoking cessation Nicotine Polacrilex (Nicotine Polacrilex 2 Mg Gum) 4 mg BUCCAL Q2H PRN PRN Reason: Nicotine Cravings Omeprazole (Omeprazole 20 Mg Capsule.Dr) 20 mg PO BID@0630,1630 REPLACED BY [facility] Last Admin: 01/26/23 06:17 Dose: 20 mg Oxybutynin Chloride (Oxybutynin Chloride 5 Mg Tablet) 5 mg PO TID REPLACED BY [facility] Last Admin: 01/26/23 08:43 Dose: 5 mg Propranolol HCl (Propranolol Hcl 10 Mg Tablet) 10 mg PO BID REPLACED BY [facility]; Protocol Last Admin: 01/26/23 08:43 Dose: 10 mg Venlafaxine HCl (Venlafaxine Hcl 25 Mg Tablet) 112.5 mg PO DAILY REPLACED BY [facility] Last Admin: 01/26/23 08:42 Dose: 112.5 mg Allergies Allergies Allergy/AdvReac Type Severity Reaction Status Date / Time meperidine [From Demerol] Allergy Mild Unknown Verified 04/06/22 09:27 Penicillins Allergy Mild Unknown Verified 04/06/22 09:27 propoxyphene Allergy Mild Unknown Verified 04/06/22 09:27 [From Darvocet-N 50] Sulfa (Sulfonamide Allergy Mild Hives Verified 04/06/22 09:27 Antibiotics) penicillin V Allergy Unknown Swelling Verified 04/06/22 09:27 Assessment & Plan Assessment & Plan (1) Bipolar 1 disorder, depressed, severe: Status: Acute Code(s): F31.4 - Bipolar disorder, current episode depressed, severe, without psychotic features (2) Opioid use disorder, moderate, in early remission: Status: Acute Code(s): F11.21 - Opioid dependence, in remission (3) PTSD (post-traumatic stress disorder): Status: Acute Code(s): F43.10 - Post-traumatic stress disorder, unspecified (4) Diabetes: Status: Acute Code(s): E11.9 - Type 2 diabetes mellitus without complications Plan Patient is a 32-year-old female with history of bipolar disorder, PTSD, diabetes, opioid use disorder in sustained remission on methadone, who presents for worsening depression following unintended discontinuation of Latuda. Patient reports that she was doing quite well after her last discharge, April 2022 and has not been to the hospital since. [facility] which she found very [facility], was seeing her daughter, taking less p.r.n. clonazepam, sober and was doing well up until about a month ago when her insurance stopped covering Latuda; provider reapplied for prior Auth however took considerable time. Since then her mood started to decline and she became really depressed, with low energy, diminished interest, poor concentration, sleep disturbance, appetite disturbance and found it difficult to fulfill obligations at the program. Patient flipped into a mixed-manic episode, talking fast, no sleep, agitated, out at night smoking past curfew, inefficient and impulsively left the program. Patient then became depressed again. She eventually was able to restart Latuda for the past several days however she remains very depressed and started feeling suicidal so self presented to not to hurt herself. Denies any relapse, drug or alcohol use though reports she got close to relapsing with opioids. Denies AVH. Patient remains depressed; wants to get back on former home dose Hospital course: 01/25 patient reports continued depression, continued SI; patient understands that she just got back to her regular dose of Latuda and recovery will take more time; continue current treatment plan 01/26 remains quite depressed with SI; isolating; agrees to push herself into behavioral activation; patient is now back on medication regimen that has helped in the past as and will likely take more time for depression to be again abating; continue current med regimen at this time Plan: CV Q 15 minute checks Continue home medications; blurb writer reviewed patient's medication list in detail Continue Latuda to 120 mg daily at dinnertime Patient wants to get back to [facility] but must reapply Dispo planning with social Work Patient educated on: diagnosis, medication risk/benefits and therapeutic strategies Informed Consent: understands Reason for continued inpatient stay Substantial Risk for: harm to self Time Spent With Patient Time: Total time managing care of this patient today ____ minutes.
[2023-01-26] MEDS: Acetaminophen 325 MG TABLET 650 MG PO (13:25)
[2023-01-26] MEDS: clonazePAM 1 MG TABLET PO ×2 (13:25→20:33)
[2023-01-26] MEDS: chlorproMAZINE HCl 25 MG TABLET PO (13:25)
[2023-01-26 18:05] VITALS: BP 108/57; PULSE 75; RESP 16; TEMP 36.4; O2SAT 97
[2023-01-26] MEDS: Lurasidone HCl 40 MG TABLET 120 MG PO (18:06)
[2023-01-26] MEDS: hydrOXYzine HCL 25 MG TABLET PO (18:07)
[2023-01-26] MEDS: chlorproMAZINE HCl 25 MG TABLET 50 MG PO (20:30)
[2023-01-26] MEDS: cloNIDine HCL 0.2 MG TABLET 0.4 MG PO (20:32)
[2023-01-27] MEDS: Omeprazole 20 MG CAPSULE.DR PO ×2 (06:18→17:02)
[2023-01-27 08:22] VITALS: BP 103/58; PULSE 88; RESP 16; TEMP 36.2; O2SAT 94
[2023-01-27] MEDS: Dextroamphetamine/Amphetamine XR 10 MG CAP.ER.24H 40 MG PO (08:30)
[2023-01-27] MEDS: methADONE HCl 20 MG/2 ML ORAL.CONC 190 MG PO (08:30)
[2023-01-27] MEDS: Multivitamin TABLET 1 TAB PO (08:31)
[2023-01-27] MEDS: Propranolol HCL 10 MG TABLET PO ×2 (08:31→20:07)
[2023-01-27] MEDS: Venlafaxine HCL 25 MG TABLET 112.5 MG PO (08:31)
[2023-01-27] MEDS: buPROPion HCl XL 150 MG TAB.ER.24H PO (08:31)
[2023-01-27] MEDS: Gabapentin 600 MG TABLET PO ×3 (08:31→20:07)
[2023-01-27] MEDS: metFORMIN HCl 500 MG TABLET PO ×2 (08:31→17:03)
[2023-01-27] MEDS: buPROPion HCl XL 300 MG TAB.ER.24H PO (08:31)
[2023-01-27] MEDS: hydroCHLOROthiazide 12.5 MG TABLET PO (08:31)
[2023-01-27] MEDS: oxyBUTYnin chloride 5 MG TABLET PO ×3 (08:31→20:07)
[2023-01-27] MEDS: hydrOXYzine HCL 25 MG TABLET PO (12:31)
[2023-01-27] MEDS: cloNIDine HCL 0.2 MG TABLET PO ×2 (12:31→17:18)
[2023-01-27] MEDS: clonazePAM 1 MG TABLET PO ×2 (15:05→20:06)
[2023-01-27] MEDS: Ibuprofen 600 MG TABLET PO (15:05)
[2023-01-27] MEDS: chlorproMAZINE HCl 25 MG TABLET PO (15:05)
--- NOTE | 2023-01-27 16:17 | P.PNPSI_ITS ---
Subjective Subjective Date of Service: 01/27/23 Reason For Visit: SI Healthcare Proxy: No Guardianship: No Medical Problems Affecting Mental Status: No Interim History: met with patient. Discussed with Nursing. Chart reviewed. Reports that ran into issues with medication coverage. Then became depressed and suicidal. Very poor self-care, isolating and not showering. Continues to present as very depressed. Still endorses suicidal thoughts. No hallucinations or delusions. Self-care very poor and strongly encouraged to shower this weekend having restarted Latuda and this being increase to 120 mg, which was previously effective. Medication Compliance: Yes Side effects from medications: No Attending Groups: No Review of Systems Acute medical concerns: No Review of Systems Review of Systems Nothing acute Mental Status Exam Mental Status Exam Narrative: pleasant. Engaged. Self-care very poor and malodorous. Depressed. Endorses suicidal thoughts but no plans. No HI. No agitation or psychosis. Insight and judgment okay Diagnostics Vital Signs (24Hr): Vital Signs - 24 hr 01/26/23 18:05 01/27/23 08:22 Temperature 97.6 F 97.2 F Pulse Rate 75 88 Respiratory Rate 16 16 Blood Pressure 108/57 L 103/58 L Pulse Oximetry 97 94 Oxygen Delivery Method Room Air BMI result Body Mass Index 49.1 Labs 01/23/23 18:28 01/23/23 18:28 Medications Medications Current Medications Acetaminophen (Acetaminophen 325 Mg Tablet) 650 mg PO Q6H PRN PRN Reason: Headache/Pain Mild Scale (1-3) Last Admin: 01/26/23 13:25 Dose: 650 mg Al Hydroxide/Mg Hydroxide (Magnesium Hydrox/Alum Hydrox 30 Ml Oral.Susp) 30 ml PO Q6H PRN PRN Reason: Heartburn/Nausea Amphetamine/Dextroamphetamine (Dextroamphetamine/Amphetamine Xr 10 Mg Cap.Er.24h) 40 mg PO DAILY AMELIE Last Admin: 01/27/23 08:30 Dose: 40 mg Bupropion HCl (Bupropion Hcl Xl 150 Mg Tab.Er.24h) 150 mg PO DAILY AMELIE Last Admin: 01/27/23 08:31 Dose: 150 mg Bupropion HCl (Bupropion Hcl Xl 300 Mg Tab.Er.24h) 300 mg PO DAILY AMELIE Last Admin: 01/27/23 08:31 Dose: 300 mg Chlorpromazine HCl (Chlorpromazine Hcl 25 Mg Tablet) 50 mg PO BEDTIME AMELIE Last Admin: 01/26/23 20:30 Dose: 50 mg Chlorpromazine HCl (Chlorpromazine Hcl 25 Mg Tablet) 25 mg PO DAILY PRN PRN Reason: anxiety Last Admin: 01/27/23 15:05 Dose: 25 mg Clonazepam (Clonazepam 1 Mg Tablet) 1 mg PO BID PRN PRN Reason: anxiety Last Admin: 01/27/23 15:05 Dose: 1 mg Clonidine HCl (Clonidine Hcl 0.2 Mg Tablet) 0.4 mg PO BEDTIME AMELIE; Protocol Last Admin: 01/26/23 20:32 Dose: 0.4 mg Clonidine HCl (Clonidine Hcl 0.2 Mg Tablet) 0.2 mg PO BID PRN; Protocol PRN Reason: anxiety Last Admin: 01/27/23 12:31 Dose: 0.2 mg Gabapentin (Gabapentin 600 Mg Tablet) 600 mg PO TID AMELIE Last Admin: 01/27/23 14:41 Dose: 600 mg Hydrochlorothiazide (Hydrochlorothiazide 12.5 Mg Tablet) 12.5 mg PO DAILY [facility]; Protocol Last Admin: 01/27/23 08:31 Dose: 12.5 mg Hydroxyzine HCl (Hydroxyzine Hcl 25 Mg Tablet) 25 mg PO Q6H PRN PRN Reason: Anxiety Last Admin: 01/27/23 12:31 Dose: 25 mg Ibuprofen (Ibuprofen 600 Mg Tablet) 600 mg PO BID PRN PRN Reason: Pain (Scale Score 1-3) Last Admin: 01/27/23 15:05 Dose: 600 mg Lurasidone HCl (Lurasidone Hcl 40 Mg Tablet) 120 mg PO DAILY@1800 [facility] Last Admin: 01/26/23 18:06 Dose: 120 mg Magnesium Hydroxide (Milk Of Magnesia 30 Ml Oral.Susp) 30 ml PO DAILY PRN PRN Reason: Constipation Metformin HCl (Metformin Hcl 500 Mg Tablet) 500 mg PO BIDWM [facility] Last Admin: 01/27/23 08:31 Dose: 500 mg Methadone HCl (Methadone Hcl 20 Mg/2 Ml Oral.Conc) 190 mg PO DAILY AMELIE Last Admin: 01/27/23 08:30 Dose: 190 mg Multivitamins/Vitamin C (Multivitamin Tablet) 1 tab PO DAILY AMELIE Last Admin: 01/27/23 08:31 Dose: 1 tab Nicotine (Nicotine 21 Mg Patch.Td24) 21 mg TRANSDERMA DAILY PRN PRN Reason: smoking cessation Nicotine Polacrilex (Nicotine Polacrilex 2 Mg Gum) 4 mg BUCCAL Q2H PRN PRN Reason: Nicotine Cravings Omeprazole (Omeprazole 20 Mg Capsule.Dr) 20 mg PO BID@0630,1630 [facility] Last Admin: 01/27/23 06:18 Dose: 20 mg Oxybutynin Chloride (Oxybutynin Chloride 5 Mg Tablet) 5 mg PO TID [facility] Last Admin: 01/27/23 14:41 Dose: 5 mg Propranolol HCl (Propranolol Hcl 10 Mg Tablet) 10 mg PO BID [facility]; Protocol Last Admin: 01/27/23 08:31 Dose: 10 mg Venlafaxine HCl (Venlafaxine Hcl 25 Mg Tablet) 112.5 mg PO DAILY [facility] Last Admin: 01/27/23 08:31 Dose: 112.5 mg Allergies Allergies Allergy/AdvReac Type Severity Reaction Status Date / Time meperidine [From Demerol] Allergy Mild Unknown Verified 04/06/22 09:27 Penicillins Allergy Mild Unknown Verified 04/06/22 09:27 propoxyphene Allergy Mild Unknown Verified 04/06/22 09:27 [From Darvocet-N 50] Sulfa (Sulfonamide Allergy Mild Hives Verified 04/06/22 09:27 Antibiotics) penicillin V Allergy Unknown Swelling Verified 04/06/22 09:27 Assessment & Plan Assessment & Plan (1) Bipolar 1 disorder, depressed, severe: Status: Acute Code(s): F31.4 - Bipolar disorder, current episode depressed, severe, without psychotic features (2) Opioid use disorder, moderate, in early remission: Status: Acute Code(s): F11.21 - Opioid dependence, in remission (3) PTSD (post-traumatic stress disorder): Status: Acute Code(s): F43.10 - Post-traumatic stress disorder, unspecified (4) Diabetes: Status: Acute Code(s): E11.9 - Type 2 diabetes mellitus without complications Plan Patient is a 32-year-old female with history of bipolar disorder, PTSD, diabetes, opioid use disorder in sustained remission on methadone, who presents for worsening depression following unintended discontinuation of Latuda. Patient reports that she was doing quite well after her last discharge, April 2022 and has not been to the hospital since. [facility] which she found very [facility], was seeing her daughter, taking less p.r.n. clonazepam, sober and was doing well up until about a month ago when her insurance stopped covering Latuda; provider reapplied for prior Auth however took considerable time. Since then her mood started to decline and she became really depressed, with low energy, diminished interest, poor concentration, sleep disturbance, appetite disturbance and found it difficult to fulfill obligations at the program. Patient flipped into a mixed-manic episode, talking fast, no sleep, agitated, out at night smoking past curfew, inefficient and impulsively left the program. Patient then became depressed again. She eventually was able to restart Latuda for the past several days however she remains very depressed and started feeling suicidal so self presented to not to hurt herself. Denies any relapse, drug or alcohol use though reports she got close to relapsing with opioids. Denies AVH. Patient remains depressed; wants to get back on former home dose Hospital course: 01/25 patient reports continued depression, continued SI; patient understands that she just got back to her regular dose of Latuda and recovery will take more time; continue current treatment plan 01/27/2023: No changes to current plan is Latuda just increased to 120 mg. Strongly encouraged to focus on showeringnthios weekend Plan: CV Q 15 minute checks Continue home medications; property underwriter reviewed patient's medication list in detail Continue Latuda to 120 mg daily at dinnertime Patient wants to get back to [facility] but must reapply Dispo planning with social Work Reason for continued inpatient stay Substantial Risk for: inability to function Time Spent With Patient Time: Total time managing care of this patient today ____ minutes.
[2023-01-27 17:15] VITALS: BP 136/63; PULSE 89; TEMP 2.3; TEMP 36.2
[2023-01-27] MEDS: Lurasidone HCl 40 MG TABLET 120 MG PO (18:07)
[2023-01-27] MEDS: cloNIDine HCL 0.2 MG TABLET 0.4 MG PO (20:07)
[2023-01-27] MEDS: chlorproMAZINE HCl 25 MG TABLET 50 MG PO (20:08)
[2023-01-27 20:16] VITALS: BP 118/77; PULSE 90; TEMP 36.8; O2SAT 90
[2023-01-28] MEDS: Omeprazole 20 MG CAPSULE.DR PO ×2 (06:05→18:00)
[2023-01-28 08:03] VITALS: BP 123/85; PULSE 72; RESP 16; TEMP 36.9; O2SAT 95
[2023-01-28] MEDS: methADONE HCl 20 MG/2 ML ORAL.CONC 190 MG PO (08:08)
[2023-01-28] MEDS: Dextroamphetamine/Amphetamine XR 10 MG CAP.ER.24H 40 MG PO (08:09)
[2023-01-28] MEDS: hydroCHLOROthiazide 12.5 MG TABLET PO (08:09)
[2023-01-28] MEDS: Gabapentin 600 MG TABLET PO ×3 (08:09→21:13)
[2023-01-28] MEDS: cloNIDine HCL 0.2 MG TABLET PO ×2 (08:09→18:09)
[2023-01-28] MEDS: buPROPion HCl XL 300 MG TAB.ER.24H PO (08:09)
[2023-01-28] MEDS: buPROPion HCl XL 150 MG TAB.ER.24H PO (08:09)
[2023-01-28] MEDS: Venlafaxine HCL 25 MG TABLET 112.5 MG PO (08:09)
[2023-01-28] MEDS: oxyBUTYnin chloride 5 MG TABLET PO ×3 (08:09→21:15)
[2023-01-28] MEDS: Propranolol HCL 10 MG TABLET PO ×2 (08:10→21:14)
[2023-01-28] MEDS: metFORMIN HCl 500 MG TABLET PO ×2 (08:10→18:00)
[2023-01-28] MEDS: Multivitamin TABLET 1 TAB PO (08:10)
[2023-01-28] MEDS: clonazePAM 1 MG TABLET PO ×2 (15:21→21:16)
[2023-01-28] MEDS: chlorproMAZINE HCl 25 MG TABLET PO (15:21)
[2023-01-28] MEDS: Ibuprofen 600 MG TABLET PO ×2 (15:21→21:14)
--- NOTE | 2023-01-28 15:30 | HO.PSYCHPN ---
Subjective Subjective Date of Service: 01/28/23 Reason For Visit: SI Interim History: Met with patient. Discussed with Nursing. No acute changes since yesterday ie remains depressed, suicidal and very poor self care. Has been declining showers. No hallucinations or delusions. Self-care very poor- technical writer communicated to patient odor and importance of showering and laundry to address same. Medication Compliance: Yes Side effects from medications: No Attending Groups: No Review of Systems Acute medical concerns: No Review of Systems Review of Systems Nothing acute Mental Status Exam Mental Status Exam Narrative: pleasant. Engaged. Self-care very poor and malodorous. Depressed. Endorses suicidal thoughts but no plans. No HI. No agitation or psychosis. Insight and judgment okay Diagnostics Vital Signs (24Hr): Vital Signs - 24 hr 01/27/23 17:15 01/27/23 20:16 01/28/23 08:03 Temperature 36.2 F L 98.2 F 98.5 F Pulse Rate 89 90 72 Respiratory Rate 16 Blood Pressure 136/63 118/77 123/85 Pulse Oximetry 90 L 95 Oxygen Delivery Method Room Air Tent Room Air BMI result Body Mass Index 49.1 Labs 01/23/23 18:28 01/23/23 18:28 Medications Medications Current Medications Acetaminophen (Acetaminophen 325 Mg Tablet) 650 mg PO Q6H PRN PRN Reason: Headache/Pain Mild Scale (1-3) Last Admin: 01/26/23 13:25 Dose: 650 mg Al Hydroxide/Mg Hydroxide (Magnesium Hydrox/Alum Hydrox 30 Ml Oral.Susp) 30 ml PO Q6H PRN PRN Reason: Heartburn/Nausea Amphetamine/Dextroamphetamine (Dextroamphetamine/Amphetamine Xr 10 Mg Cap.Er.24h) 40 mg PO DAILY [facility] Last Admin: 01/28/23 08:09 Dose: 40 mg Bupropion HCl (Bupropion Hcl Xl 150 Mg Tab.Er.24h) 150 mg PO DAILY AMELIE Last Admin: 01/28/23 08:09 Dose: 150 mg Bupropion HCl (Bupropion Hcl Xl 300 Mg Tab.Er.24h) 300 mg PO DAILY [facility] Last Admin: 01/28/23 08:09 Dose: 300 mg Chlorpromazine HCl (Chlorpromazine Hcl 25 Mg Tablet) 50 mg PO BEDTIME [facility] Last Admin: 01/27/23 20:08 Dose: 50 mg Chlorpromazine HCl (Chlorpromazine Hcl 25 Mg Tablet) 25 mg PO DAILY PRN PRN Reason: anxiety Last Admin: 01/28/23 15:21 Dose: 25 mg Clonazepam (Clonazepam 1 Mg Tablet) 1 mg PO BID PRN PRN Reason: anxiety Last Admin: 01/28/23 15:21 Dose: 1 mg Clonidine HCl (Clonidine Hcl 0.2 Mg Tablet) 0.4 mg PO BEDTIME AMELIE; Protocol Last Admin: 01/27/23 20:07 Dose: 0.4 mg Clonidine HCl (Clonidine Hcl 0.2 Mg Tablet) 0.2 mg PO BID PRN; Protocol PRN Reason: anxiety Last Admin: 01/28/23 08:09 Dose: 0.2 mg Gabapentin (Gabapentin 600 Mg Tablet) 600 mg PO TID [facility] Last Admin: 01/28/23 15:21 Dose: 600 mg Hydrochlorothiazide (Hydrochlorothiazide 12.5 Mg Tablet) 12.5 mg PO DAILY [facility]; Protocol Last Admin: 01/28/23 08:09 Dose: 12.5 mg Hydroxyzine HCl (Hydroxyzine Hcl 25 Mg Tablet) 25 mg PO Q6H PRN PRN Reason: Anxiety Last Admin: 01/27/23 12:31 Dose: 25 mg Ibuprofen (Ibuprofen 600 Mg Tablet) 600 mg PO BID PRN PRN Reason: Pain (Scale Score 1-3) Last Admin: 01/28/23 15:21 Dose: 600 mg Lurasidone HCl (Lurasidone Hcl 40 Mg Tablet) 120 mg PO DAILY@1800 [facility] Last Admin: 01/27/23 18:07 Dose: 120 mg Magnesium Hydroxide (Milk Of Magnesia 30 Ml Oral.Susp) 30 ml PO DAILY PRN PRN Reason: Constipation Metformin HCl (Metformin Hcl 500 Mg Tablet) 500 mg PO BIDWM [facility] Last Admin: 01/28/23 08:10 Dose: 500 mg Methadone HCl (Methadone Hcl 20 Mg/2 Ml Oral.Conc) 190 mg PO DAILY [facility] Last Admin: 01/28/23 08:08 Dose: 190 mg Multivitamins/Vitamin C (Multivitamin Tablet) 1 tab PO DAILY [facility] Last Admin: 01/28/23 08:10 Dose: 1 tab Nicotine (Nicotine 21 Mg Patch.Td24) 21 mg TRANSDERMA DAILY PRN PRN Reason: smoking cessation Nicotine Polacrilex (Nicotine Polacrilex 2 Mg Gum) 4 mg BUCCAL Q2H PRN PRN Reason: Nicotine Cravings Omeprazole (Omeprazole 20 Mg Capsule.Dr) 20 mg PO BID@0630,1630 [facility] Last Admin: 01/28/23 06:05 Dose: 20 mg Oxybutynin Chloride (Oxybutynin Chloride 5 Mg Tablet) 5 mg PO TID [facility] Last Admin: 01/28/23 15:21 Dose: 5 mg Propranolol HCl (Propranolol Hcl 10 Mg Tablet) 10 mg PO BID [facility]; Protocol Last Admin: 01/28/23 08:10 Dose: 10 mg Venlafaxine HCl (Venlafaxine Hcl 25 Mg Tablet) 112.5 mg PO DAILY [facility] Last Admin: 01/28/23 08:09 Dose: 112.5 mg Allergies Allergies Allergy/AdvReac Type Severity Reaction Status Date / Time meperidine [From Demerol] Allergy Mild Unknown Verified 04/06/22 09:27 Penicillins Allergy Mild Unknown Verified 04/06/22 09:27 propoxyphene Allergy Mild Unknown Verified 04/06/22 09:27 [From Darvocet-N 50] Sulfa (Sulfonamide Allergy Mild Hives Verified 04/06/22 09:27 Antibiotics) penicillin V Allergy Unknown Swelling Verified 04/06/22 09:27 Assessment & Plan Assessment & Plan (1) Bipolar 1 disorder, depressed, severe: Status: Acute Code(s): F31.4 - Bipolar disorder, current episode depressed, severe, without psychotic features (2) Opioid use disorder, moderate, in early remission: Status: Acute Code(s): F11.21 - Opioid dependence, in remission (3) PTSD (post-traumatic stress disorder): Status: Acute Code(s): F43.10 - Post-traumatic stress disorder, unspecified (4) Diabetes: Status: Acute Code(s): E11.9 - Type 2 diabetes mellitus without complications Plan Patient is a 32-year-old female with history of bipolar disorder, PTSD, diabetes, opioid use disorder in sustained remission on methadone, who presents for worsening depression following unintended discontinuation of Latuda. Patient reports that she was doing quite well after her last discharge, April 2022 and has not been to the hospital since. [facility] which she found very helpful, was seeing her daughter, taking less p.r.n. clonazepam, sober and was doing well up until about a month ago when her insurance stopped covering Latuda; provider reapplied for prior Auth however took considerable time. Since then her mood started to decline and she became really depressed, with low energy, diminished interest, poor concentration, sleep disturbance, appetite disturbance and found it difficult to fulfill obligations at the program. Patient flipped into a mixed-manic episode, talking fast, no sleep, agitated, out at night smoking past curfew, inefficient and impulsively left the program. Patient then became depressed again. She eventually was able to restart Latuda for the past several days however she remains very depressed and started feeling suicidal so self presented to not to hurt herself. Denies any relapse, drug or alcohol use though reports she got close to relapsing with opioids. Denies AVH. Patient remains depressed; wants to get back on former home dose Hospital course: 01/25 patient reports continued depression, continued SI; patient understands that she just got back to her regular dose of Latuda and recovery will take more time; continue current treatment plan 01/28/2023: No changes to current plan is Latuda just increased to 120 mg. Strongly encouraged to focus on showering Plan: CV Q 15 minute checks Continue home medications; technical writer reviewed patient's medication list in detail Continue Latuda to 120 mg daily at dinnertime Patient wants to get back to [facility] but must reapply Dispo planning with social Work Reason for continued inpatient stay Substantial Risk for: inability to function Time Spent With Patient Time: Total time managing care of this patient today ____ minutes.
[2023-01-28] MEDS: Lurasidone HCl 40 MG TABLET 120 MG PO (18:00)
[2023-01-28 21:10] VITALS: BP 93/64; PULSE 80; TEMP 35.9
[2023-01-28] MEDS: chlorproMAZINE HCl 25 MG TABLET 50 MG PO (21:14)
[2023-01-28] MEDS: hydrOXYzine HCL 25 MG TABLET PO (21:15)
[2023-01-28] MEDS: cloNIDine HCL 0.2 MG TABLET 0.4 MG PO (21:15)
[2023-01-29] MEDS: Omeprazole 20 MG CAPSULE.DR PO ×2 (06:15→17:08)
[2023-01-29 08:00] VITALS: BP 116/60; PULSE 74; RESP 16; TEMP 36.1; O2SAT 94
[2023-01-29] MEDS: buPROPion HCl XL 150 MG TAB.ER.24H PO (08:52)
[2023-01-29] MEDS: Multivitamin TABLET 1 TAB PO (08:52)
[2023-01-29] MEDS: metFORMIN HCl 500 MG TABLET PO ×2 (08:52→17:08)
[2023-01-29] MEDS: Dextroamphetamine/Amphetamine XR 10 MG CAP.ER.24H 40 MG PO (08:53)
[2023-01-29] MEDS: Propranolol HCL 10 MG TABLET PO ×2 (08:54→20:06)
[2023-01-29] MEDS: Gabapentin 600 MG TABLET PO ×3 (08:54→20:06)
[2023-01-29] MEDS: Venlafaxine HCL 25 MG TABLET 112.5 MG PO (08:54)
[2023-01-29] MEDS: oxyBUTYnin chloride 5 MG TABLET PO ×3 (08:54→20:06)
[2023-01-29] MEDS: hydroCHLOROthiazide 12.5 MG TABLET PO (08:54)
[2023-01-29] MEDS: methADONE HCl 20 MG/2 ML ORAL.CONC 190 MG PO (08:56)
[2023-01-29] MEDS: buPROPion HCl XL 300 MG TAB.ER.24H PO (08:56)
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
[2023-01-29] MEDS: cloNIDine HCL 0.2 MG TABLET PO ×2 (09:09→17:22)
[2023-01-29 13:10] LABS: Influenza A PCR NEGATIVE (Negative); Influenza B PCR NEGATIVE (Negative); Resp Syncy Virus RNA Qual PCR NEGATIVE (Negative); SARS COV2 PCR INHOUSE NEGATIVE (Negative)
[2023-01-29] MEDS: clonazePAM 1 MG TABLET PO ×2 (14:23→20:10)
[2023-01-29] MEDS: chlorproMAZINE HCl 25 MG TABLET PO (14:23)
[2023-01-29] MEDS: Nicotine 21 MG PATCH.TD24 TRANSDERMA (14:23)
[2023-01-29] MEDS: Lurasidone HCl 40 MG TABLET 120 MG PO (17:12)
[2023-01-29] MEDS: Acetaminophen 325 MG TABLET 650 MG PO (17:21)
[2023-01-29 18:00] VITALS: BP 140/79; PULSE 83; RESP 18; TEMP 35.9; O2SAT 94
[2023-01-29] MEDS: cloNIDine HCL 0.2 MG TABLET 0.4 MG PO (20:06)
[2023-01-29] MEDS: chlorproMAZINE HCl 25 MG TABLET 50 MG PO (20:06)
[2023-01-30 08:00] VITALS: BP 122/65; PULSE 72; RESP 16; TEMP 36.6; O2SAT 92
[2023-01-30] MEDS: methADONE HCl 20 MG/2 ML ORAL.CONC 190 MG PO (09:21)
[2023-01-30] MEDS: Dextroamphetamine/Amphetamine XR 10 MG CAP.ER.24H 40 MG PO (09:23)
[2023-01-30] MEDS: Propranolol HCL 10 MG TABLET PO ×2 (09:24→19:58)
[2023-01-30] MEDS: Venlafaxine HCL 25 MG TABLET 112.5 MG PO (09:24)
[2023-01-30] MEDS: buPROPion HCl XL 300 MG TAB.ER.24H PO (09:25)
[2023-01-30] MEDS: Multivitamin TABLET 1 TAB PO (09:25)
[2023-01-30] MEDS: hydroCHLOROthiazide 12.5 MG TABLET PO (09:25)
[2023-01-30] MEDS: oxyBUTYnin chloride 5 MG TABLET PO ×3 (09:25→19:58)
[2023-01-30] MEDS: metFORMIN HCl 500 MG TABLET PO ×2 (09:25→18:03)
[2023-01-30] MEDS: Gabapentin 600 MG TABLET PO ×3 (09:25→19:58)
[2023-01-30] MEDS: buPROPion HCl XL 150 MG TAB.ER.24H PO (09:26)
[2023-01-30] MEDS: Omeprazole 20 MG CAPSULE.DR PO ×2 (09:26→18:03)
[2023-01-30] MEDS: Ibuprofen 600 MG TABLET PO (09:30)
[2023-01-30] MEDS: Nicotine 21 MG PATCH.TD24 TRANSDERMA (09:30)
[2023-01-30] MEDS: cloNIDine HCL 0.2 MG TABLET PO ×2 (09:31→18:03)
[2023-01-30 10:14] LABS: Creatinine Clr Calc Pharmacy 140.1; Estimated Glomerular Filt Rate > 60
[2023-01-30] MEDS: clonazePAM 1 MG TABLET PO ×2 (14:40→20:01)
[2023-01-30] MEDS: chlorproMAZINE HCl 25 MG TABLET PO ×2 (14:41→18:03)
--- NOTE | 2023-01-30 17:20 | HO.PSYCHPN ---
Subjective Subjective Date of Service: 01/30/23 Reason For Visit: SI Interim History: Met with patient; discussed with team reports mood a little better today; says not as isolative and a little more hopeful; no SI. Showered today Pt says anxious but using coping skills including yoga. Asks for prn thorazine to be more available Mental Status Exam Mental Status Exam Narrative: Pt is alert and oriented; behavior is cooperative, calm; patient is not in distress; dressed in hospital attire, unkempt and malodorous; mood is described as not good and affect congruent, downcast; eye contact appropriate; Speech is a little latent; normal rate, volume and prosody and not pressured; psychomotor retardation present; thought process is organized and goal directed; Thought content is on dealing with depression, SI, tx; otherwise pertinent to relevant topics and without any delusional content, paranoid ideations or grandiosity; intermittent SI; no HI. Seems a little internally preoccupied but denies AVH. Patients insight and judgment impaired. Diagnostics Vital Signs (24Hr): Vital Signs - 24 hr 01/29/23 18:00 01/30/23 08:00 Temperature 96.6 F L 98 F Pulse Rate 83 72 Respiratory Rate 18 16 Blood Pressure 140/79 H 122/65 Pulse Oximetry 94 92 Oxygen Delivery Method Room Air Room Air BMI result Body Mass Index 49.1 Labs 01/23/23 18:28 01/30/23 09:03 Labs: Laboratory Results - last 48 hr 01/29/23 01/30/23 12:12 09:03 Creatinine 0.69 Estim Creat Clear Calc 140.1 Estimated GFR > 60 Influenza Type A (PCR) NEGATIVE Influenza Type B (PCR) NEGATIVE RSV RNA Qual (PCR) NEGATIVE SARS-CoV-2 RNA (RT-PCR) NEGATIVE Medications Medications Current Medications Acetaminophen (Acetaminophen 325 Mg Tablet) 650 mg PO Q6H PRN PRN Reason: Headache/Pain Mild Scale (1-3) Last Admin: 01/29/23 17:21 Dose: 650 mg Al Hydroxide/Mg Hydroxide (Magnesium Hydrox/Alum Hydrox 30 Ml Oral.Susp) 30 ml PO Q6H PRN PRN Reason: Heartburn/Nausea Amphetamine/Dextroamphetamine (Dextroamphetamine/Amphetamine Xr 10 Mg Cap.Er.24h) 40 mg PO DAILY AMELIE Last Admin: 01/30/23 09:23 Dose: 40 mg Bupropion HCl (Bupropion Hcl Xl 150 Mg Tab.Er.24h) 150 mg PO DAILY AMELIE Last Admin: 01/30/23 09:26 Dose: 150 mg Bupropion HCl (Bupropion Hcl Xl 300 Mg Tab.Er.24h) 300 mg PO DAILY AMELIE Last Admin: 01/30/23 09:25 Dose: 300 mg Chlorpromazine HCl (Chlorpromazine Hcl 25 Mg Tablet) 50 mg PO BEDTIME AMELIE Last Admin: 01/29/23 20:06 Dose: 50 mg Chlorpromazine HCl (Chlorpromazine Hcl 25 Mg Tablet) 25 mg PO TID PRN PRN Reason: anxiety Last Admin: 01/30/23 14:41 Dose: 25 mg Clonazepam (Clonazepam 1 Mg Tablet) 1 mg PO BID PRN PRN Reason: anxiety Last Admin: 01/30/23 14:40 Dose: 1 mg Clonidine HCl (Clonidine Hcl 0.2 Mg Tablet) 0.4 mg PO BEDTIME AMELIE; Protocol Last Admin: 01/29/23 20:06 Dose: 0.4 mg Clonidine HCl (Clonidine Hcl 0.2 Mg Tablet) 0.2 mg PO BID PRN; Protocol PRN Reason: anxiety Last Admin: 01/30/23 09:31 Dose: 0.2 mg Gabapentin (Gabapentin 600 Mg Tablet) 600 mg PO TID AMELIE Last Admin: 01/30/23 14:40 Dose: 600 mg Hydrochlorothiazide (Hydrochlorothiazide 12.5 Mg Tablet) 12.5 mg PO DAILY AMELIE; Protocol Last Admin: 01/30/23 09:25 Dose: 12.5 mg Hydroxyzine HCl (Hydroxyzine Hcl 25 Mg Tablet) 25 mg PO Q6H PRN PRN Reason: Anxiety Last Admin: 01/28/23 21:15 Dose: 25 mg Ibuprofen (Ibuprofen 600 Mg Tablet) 600 mg PO BID PRN PRN Reason: Pain (Scale Score 1-3) Last Admin: 01/30/23 09:30 Dose: 600 mg Lurasidone HCl (Lurasidone Hcl 40 Mg Tablet) 120 mg PO DAILY@1800 AMELIE Last Admin: 01/29/23 17:12 Dose: 120 mg Magnesium Hydroxide (Milk Of Magnesia 30 Ml Oral.Susp) 30 ml PO DAILY PRN PRN Reason: Constipation Metformin HCl (Metformin Hcl 500 Mg Tablet) 500 mg PO BIDWM AMELIE Last Admin: 01/30/23 09:25 Dose: 500 mg Methadone HCl (Methadone Hcl 20 Mg/2 Ml Oral.Conc) 190 mg PO DAILY [facility] Last Admin: 01/30/23 09:21 Dose: 190 mg Multivitamins/Vitamin C (Multivitamin Tablet) 1 tab PO DAILY [facility] Last Admin: 01/30/23 09:25 Dose: 1 tab Nicotine (Nicotine 21 Mg Patch.Td24) 21 mg TRANSDERMA DAILY PRN PRN Reason: smoking cessation Last Admin: 01/30/23 09:30 Dose: 21 mg Nicotine Polacrilex (Nicotine Polacrilex 2 Mg Gum) 4 mg BUCCAL Q2H PRN PRN Reason: Nicotine Cravings Omeprazole (Omeprazole 20 Mg Capsule.Dr) 20 mg PO BID@0630,1630 [facility] Last Admin: 01/30/23 09:26 Dose: 20 mg Oxybutynin Chloride (Oxybutynin Chloride 5 Mg Tablet) 5 mg PO TID [facility] Last Admin: 01/30/23 14:40 Dose: 5 mg Propranolol HCl (Propranolol Hcl 10 Mg Tablet) 10 mg PO BID [facility]; Protocol Last Admin: 01/30/23 09:24 Dose: 10 mg Venlafaxine HCl (Venlafaxine Hcl 25 Mg Tablet) 112.5 mg PO DAILY [facility] Last Admin: 01/30/23 09:24 Dose: 112.5 mg Allergies Allergies Allergy/AdvReac Type Severity Reaction Status Date / Time meperidine [From Demerol] Allergy Mild Unknown Verified 04/06/22 09:27 Penicillins Allergy Mild Unknown Verified 04/06/22 09:27 propoxyphene Allergy Mild Unknown Verified 04/06/22 09:27 [From Darvocet-N 50] Sulfa (Sulfonamide Allergy Mild Hives Verified 04/06/22 09:27 Antibiotics) penicillin V Allergy Unknown Swelling Verified 04/06/22 09:27 Assessment & Plan Assessment & Plan (1) Bipolar 1 disorder, depressed, severe: Status: Acute Code(s): F31.4 - Bipolar disorder, current episode depressed, severe, without psychotic features (2) Opioid use disorder, moderate, in early remission: Status: Acute Code(s): F11.21 - Opioid dependence, in remission (3) PTSD (post-traumatic stress disorder): Status: Acute Code(s): F43.10 - Post-traumatic stress disorder, unspecified (4) Diabetes: Status: Acute Code(s): E11.9 - Type 2 diabetes mellitus without complications Plan Patient is a 32-year-old female with history of bipolar disorder, PTSD, diabetes, opioid use disorder in sustained remission on methadone, who presents for worsening depression following unintended discontinuation of Latuda. Patient reports that she was doing quite well after her last discharge, April 2022 and has not been to the hospital since. [facility] at [facility] which she found very helpful, was seeing her daughter, taking less p.r.n. clonazepam, sober and was doing well up until about a month ago when her insurance stopped covering Latuda; provider reapplied for prior Auth however took considerable time. Since then her mood started to decline and she became really depressed, with low energy, diminished interest, poor concentration, sleep disturbance, appetite disturbance and found it difficult to fulfill obligations at the program. Patient flipped into a mixed-manic episode, talking fast, no sleep, agitated, out at night smoking past curfew, inefficient and impulsively left the program. Patient then became depressed again. She eventually was able to restart Latuda for the past several days however she remains very depressed and started feeling suicidal so self presented to not to hurt herself. Denies any relapse, drug or alcohol use though reports she got close to relapsing with opioids. Denies AVH. Patient remains depressed; wants to get back on former home dose Hospital course: 01/25 patient reports continued depression, continued SI; patient understands that she just got back to her regular dose of Latuda and recovery will take more time; continue current treatment plan 01/26 remains quite depressed with SI; isolating; agrees to push herself into behavioral activation; patient is now back on medication regimen that has helped in the past as and will likely take more time for depression to be again abating; continue current med regimen at this time 01/29 still quite depressed; continue current tx plan 01/30 little less depressed; using coping skill; getting more optimistic Plan: CV Q 15 minute checks Continue home medications; magnetic tape typewriter operator reviewed patient's medication list in detail Continue Latuda to 120 mg daily at dinnertime Patient wants to get back to [facility] but must reapply Dispo planning with social Work Patient educated on: diagnosis, medication risk/benefits, substance abuse and therapeutic strategies Informed Consent: understands Reason for continued inpatient stay Substantial Risk for: rapid decompensation Time Spent With Patient Time: Total time managing care of this patient today ____ minutes.
[2023-01-30 18:00] VITALS: BP 110/61; PULSE 80; RESP 18
[2023-01-30] MEDS: Lurasidone HCl 40 MG TABLET 120 MG PO (18:03)
[2023-01-30 18:32] LABS: COVID-19 Test Negative (Negative); IDNOW Serial# 9DB6401D
[2023-01-30] MEDS: chlorproMAZINE HCl 25 MG TABLET 50 MG PO (19:58)
[2023-01-30] MEDS: cloNIDine HCL 0.2 MG TABLET 0.4 MG PO (19:58)
[2023-01-31 08:00] VITALS: BP 113/62; PULSE 76; RESP 16; TEMP 36.6; O2SAT 92
[2023-01-31] MEDS: methADONE HCl 20 MG/2 ML ORAL.CONC 190 MG PO (08:42)
[2023-01-31] MEDS: Nicotine 21 MG PATCH.TD24 TRANSDERMA (08:43)
[2023-01-31] MEDS: Venlafaxine HCL 25 MG TABLET 112.5 MG PO (08:46)
[2023-01-31] MEDS: Dextroamphetamine/Amphetamine XR 10 MG CAP.ER.24H 40 MG PO (08:47)
[2023-01-31] MEDS: cloNIDine HCL 0.2 MG TABLET PO ×2 (08:48→15:14)
[2023-01-31] MEDS: buPROPion HCl XL 300 MG TAB.ER.24H PO (08:48)
[2023-01-31] MEDS: Omeprazole 20 MG CAPSULE.DR PO ×2 (08:48→17:38)
[2023-01-31] MEDS: oxyBUTYnin chloride 5 MG TABLET PO ×3 (08:48→20:27)
[2023-01-31] MEDS: Gabapentin 600 MG TABLET PO ×3 (08:49→20:28)
[2023-01-31] MEDS: buPROPion HCl XL 150 MG TAB.ER.24H PO (08:49)
[2023-01-31] MEDS: hydroCHLOROthiazide 12.5 MG TABLET PO (08:49)
[2023-01-31] MEDS: metFORMIN HCl 500 MG TABLET PO ×2 (08:49→17:38)
[2023-01-31] MEDS: Multivitamin TABLET 1 TAB PO (08:49)
[2023-01-31] MEDS: Propranolol HCL 10 MG TABLET PO ×2 (08:49→20:28)
[2023-01-31] MEDS: hydrOXYzine HCL 25 MG TABLET PO (12:46)
[2023-01-31] MEDS: chlorproMAZINE HCl 25 MG TABLET PO (12:46)
--- NOTE | 2023-01-31 14:49 | P.PNPSI_ITS ---
Subjective Subjective Date of Service: 01/31/23 Reason For Visit: SI Subjective Notes: Conditional Voluntary Interim History: Reviewed with . Patient reports feeling anxious and depressed ; pt stated, I don't know why I feel this way. I just wake up like this . Pt reports suicidal ideation with plan to overdose on heroin; pt stated, I would do it so I wouldn't have to deal with my family or them deal with me. I cause people issues for people . denies HI/VH/AH. Pt c/o sore throat, will order Cepacol lozenges. Medication Compliance: Yes Side effects from medications: No Review of Systems Constitutional: Reports as per HPI Eyes: Reports as per HPI Reports as per HPI Cardiovascular: Reports as per HPI Respiratory: Reports as per HPI Gastrointestinal: Reports as per HPI Genitourinary: Reports as per HPI Musculoskeletal: Reports as per HPI Skin/Breast: Reports as per HPI Reports as per HPI Psychiatric: Reports as per HPI Endocrine: Reports as per HPI Hematologic/Lymphatic: Reports as per HPI Allergic/Immunologic: Reports as per HPI Mental Status Exam Mental Status Exam Narrative: Pt is alert and oriented; behavior is cooperative and calm; dressed in casual attire; mood is described as depressed ; eye contact appropriate; Speech is normal rate, volume and prosody and not pressured; no psychomotor agitation/retardation present; thought process is organized; Thought content is on tx; otherwise pertinent to relevant topics and without any delusional content, paranoid ideations or grandiosity; denies HI/VH/AH. Pt reports suicidal ideation with plan to overdose on heroin. Patients insight and judgment are poor. Diagnostics Vital Signs (24Hr): Vital Signs - 24 hr 01/30/23 18:00 01/31/23 08:00 Temperature 97.9 F Pulse Rate 80 76 Respiratory Rate 18 16 Blood Pressure 110/61 113/62 Pulse Oximetry 92 Oxygen Delivery Method Room Air BMI result Body Mass Index 49.1 Labs 01/23/23 18:28 01/30/23 09:03 Labs: Laboratory Results - last 48 hr 01/30/23 01/30/23 09:03 18:10 Creatinine 0.69 Estim Creat Clear Calc 140.1 Estimated GFR > 60 COVID-19 (AJ) Negative COVID-19 Clin Com See Note Medications Medications Current Medications Acetaminophen (Acetaminophen 325 Mg Tablet) 650 mg PO Q6H PRN PRN Reason: Headache/Pain Mild Scale (1-3) Last Admin: 01/29/23 17:21 Dose: 650 mg Al Hydroxide/Mg Hydroxide (Magnesium Hydrox/Alum Hydrox 30 Ml Oral.Susp) 30 ml PO Q6H PRN PRN Reason: Heartburn/Nausea Amphetamine/Dextroamphetamine (Dextroamphetamine/Amphetamine Xr 10 Mg Cap.Er.24h) 40 mg PO DAILY AMELIE Last Admin: 01/31/23 08:47 Dose: 40 mg Bupropion HCl (Bupropion Hcl Xl 150 Mg Tab.Er.24h) 150 mg PO DAILY AMELIE Last Admin: 01/31/23 08:49 Dose: 150 mg Bupropion HCl (Bupropion Hcl Xl 300 Mg Tab.Er.24h) 300 mg PO DAILY AMELIE Last Admin: 01/31/23 08:48 Dose: 300 mg Chlorpromazine HCl (Chlorpromazine Hcl 25 Mg Tablet) 50 mg PO BEDTIME AMELIE Last Admin: 01/30/23 19:58 Dose: 50 mg Chlorpromazine HCl (Chlorpromazine Hcl 25 Mg Tablet) 25 mg PO TID PRN PRN Reason: anxiety Last Admin: 01/31/23 12:46 Dose: 25 mg Clonazepam (Clonazepam 1 Mg Tablet) 1 mg PO BID PRN PRN Reason: anxiety Last Admin: 01/30/23 20:01 Dose: 1 mg Clonidine HCl (Clonidine Hcl 0.2 Mg Tablet) 0.4 mg PO BEDTIME AMELIE; Protocol Last Admin: 01/30/23 19:58 Dose: 0.4 mg Clonidine HCl (Clonidine Hcl 0.2 Mg Tablet) 0.2 mg PO BID PRN; Protocol PRN Reason: anxiety Last Admin: 01/31/23 08:48 Dose: 0.2 mg Gabapentin (Gabapentin 600 Mg Tablet) 600 mg PO TID AMELIE Last Admin: 01/31/23 14:35 Dose: 600 mg Hydrochlorothiazide (Hydrochlorothiazide 12.5 Mg Tablet) 12.5 mg PO DAILY AMELIE; Protocol Last Admin: 01/31/23 08:49 Dose: 12.5 mg Hydroxyzine HCl (Hydroxyzine Hcl 25 Mg Tablet) 25 mg PO Q6H PRN PRN Reason: Anxiety Last Admin: 01/31/23 12:46 Dose: 25 mg Ibuprofen (Ibuprofen 600 Mg Tablet) 600 mg PO BID PRN PRN Reason: Pain (Scale Score 1-3) Last Admin: 01/30/23 09:30 Dose: 600 mg Lurasidone HCl (Lurasidone Hcl 40 Mg Tablet) 120 mg PO DAILY@1800 [facility] Last Admin: 01/30/23 18:03 Dose: 120 mg Magnesium Hydroxide (Milk Of Magnesia 30 Ml Oral.Susp) 30 ml PO DAILY PRN PRN Reason: Constipation Metformin HCl (Metformin Hcl 500 Mg Tablet) 500 mg PO BIDWM [facility] Last Admin: 01/31/23 08:49 Dose: 500 mg Methadone HCl (Methadone Hcl 20 Mg/2 Ml Oral.Conc) 190 mg PO DAILY [facility] Last Admin: 01/31/23 08:42 Dose: 190 mg Multivitamins/Vitamin C (Multivitamin Tablet) 1 tab PO DAILY [facility] Last Admin: 01/31/23 08:49 Dose: 1 tab Nicotine (Nicotine 21 Mg Patch.Td24) 21 mg TRANSDERMA DAILY PRN PRN Reason: smoking cessation Last Admin: 01/31/23 08:43 Dose: 21 mg Nicotine Polacrilex (Nicotine Polacrilex 2 Mg Gum) 4 mg BUCCAL Q2H PRN PRN Reason: Nicotine Cravings Omeprazole (Omeprazole 20 Mg Capsule.Dr) 20 mg PO BID@0630,1630 [facility] [place] Last Admin: 01/31/23 08:48 Dose: 20 mg Oxybutynin Chloride (Oxybutynin Chloride 5 Mg Tablet) 5 mg PO TID [facility] Last Admin: 01/31/23 14:35 Dose: 5 mg Propranolol HCl (Propranolol Hcl 10 Mg Tablet) 10 mg PO BID [facility] [place]; Protocol Last Admin: 01/31/23 08:49 Dose: 10 mg Venlafaxine HCl (Venlafaxine Hcl 25 Mg Tablet) 112.5 mg PO DAILY [facility] [place] Last Admin: 01/31/23 08:46 Dose: 112.5 mg Allergies Allergies Allergy/AdvReac Type Severity Reaction Status Date / Time meperidine [From Demerol] Allergy Mild Unknown Verified 04/06/22 09:27 Penicillins Allergy Mild Unknown Verified 04/06/22 09:27 propoxyphene Allergy Mild Unknown Verified 04/06/22 09:27 [From Darvocet-N 50] Sulfa (Sulfonamide Allergy Mild Hives Verified 04/06/22 09:27 Antibiotics) penicillin V Allergy Unknown Swelling Verified 04/06/22 09:27 Assessment & Plan Assessment & Plan (1) Bipolar 1 disorder, depressed, severe: Status: Acute Code(s): F31.4 - Bipolar disorder, current episode depressed, severe, without psychotic features (2) Opioid use disorder, moderate, in early remission: Status: Acute Code(s): F11.21 - Opioid dependence, in remission (3) PTSD (post-traumatic stress disorder): Status: Acute Code(s): F43.10 - Post-traumatic stress disorder, unspecified (4) Diabetes: Status: Acute Code(s): E11.9 - Type 2 diabetes mellitus without complications Plan Patient is a 32-year-old female with history of bipolar disorder, PTSD, diabetes, opioid use disorder in sustained remission on methadone, who presents for worsening depression following unintended discontinuation of Latuda. Patient reports that she was doing quite well after her last discharge, April 2022 and has not been to the hospital since. [facility] at [facility] which she found very helpful, was seeing her daughter, taking less p.r.n. clonazepam, sober and was doing well up until about a month ago when her insurance stopped covering Latuda; provider reapplied for prior Auth however took considerable time. Since then her mood started to decline and she became really depressed, with low energy, diminished interest, poor concentration, sleep disturbance, appetite disturbance and found it difficult to fulfill obligations at the program. Patient flipped into a mixed-manic episode, talking fast, no sleep, agitated, out at night smoking past curfew, inefficient and impulsively left the program. Patient then became depressed again. She eventually was able to restart Latuda for the past several days however she remains very depressed and started feeling suicidal so self presented to not to hurt herself. Denies any relapse, drug or alcohol use though reports she got close to relapsing with opioids. Denies AVH. Patient remains depressed; wants to get back on former home dose Hospital course: 01/25 patient reports continued depression, continued SI; patient understands that she just got back to her regular dose of Latuda and recovery will take more time; continue current treatment plan 01/26 remains quite depressed with SI; isolating; agrees to push herself into behavioral activation; patient is now back on medication regimen that has helped in the past as and will likely take more time for depression to be again abating; continue current med regimen at this time 01/29 still quite depressed; continue current tx plan 01/30 little less depressed; using coping skill; getting more optimistic 01/31:Patient reports feeling anxious and depressed ; pt stated, I don't know why I feel this way. I just wake up like this . Pt reports suicidal ideation with plan to overdose on heroin; pt stated, I would do it so I wouldn't have to deal with my family or them deal with me. I cause people issues for people . denies HI/VH/AH. Pt c/o sore throat, will order Cepacol lozenges. Plan: CV Q 15 minute checks Continue home medications; medical underwriter reviewed patient's medication list in detail Continue Latuda to 120 mg daily at dinnertime Patient wants to get back to [facility] but must reapply Dispo planning with social Work Patient educated on: diagnosis, medication risk/benefits and therapeutic strategies Informed Consent: understands Reason for continued inpatient stay Substantial Risk for: harm to self and med/psych decompensation Time Spent With Patient Time: Total time managing care of this patient today _30___ minutes.
[2023-01-31 15:12] VITALS: BP 132/62; PULSE 100
[2023-01-31] MEDS: Throat Lozenge, Medicated LOZENGE 1 LOZENGE MUCOUS MEM (15:13)
[2023-01-31] MEDS: clonazePAM 1 MG TABLET PO ×2 (15:14→20:29)
[2023-01-31] MEDS: Ibuprofen 600 MG TABLET PO (15:18)
[2023-01-31] MEDS: Lurasidone HCl 40 MG TABLET 120 MG PO (17:37)
[2023-01-31 18:00] VITALS: BP 111/65; PULSE 79; TEMP 36.3; O2SAT 92
[2023-01-31] MEDS: cloNIDine HCL 0.2 MG TABLET 0.4 MG PO (20:27)
[2023-01-31] MEDS: chlorproMAZINE HCl 25 MG TABLET 50 MG PO (20:28)
--- NOTE | 2023-02-01 | ECG_ITS ---
Test Reason : CHECK QTC Blood Pressure : / mmHG Vent. Rate : 073 BPM Atrial Rate : 073 BPM P-R Int : 150 ms QRS Dur : 108 ms QT Int : 382 ms P-R-T Axes : 053 076 078 degrees QTc Int : 420 ms Poor data quality Normal sinus rhythm Incomplete right bundle branch block Nonspecific ST abnormality Abnormal ECG When compared with ECG of 24-JAN-2023 09:24, No significant change was found Referred By: Emerson Griffith Electronically Signed By:LUIZ NAVAS MD
[2023-02-01] MEDS: Omeprazole 20 MG CAPSULE.DR PO ×2 (05:55→16:56)
[2023-02-01 06:00] VITALS: BP 126/77; PULSE 94; RESP 18; TEMP 36; O2SAT 94
[2023-02-01] MEDS: Multivitamin TABLET 1 TAB PO (09:33)
[2023-02-01] MEDS: cloNIDine HCL 0.2 MG TABLET PO (09:33)
[2023-02-01] MEDS: oxyBUTYnin chloride 5 MG TABLET PO ×3 (09:33→19:51)
[2023-02-01] MEDS: buPROPion HCl XL 150 MG TAB.ER.24H PO (09:33)
[2023-02-01] MEDS: methADONE HCl 20 MG/2 ML ORAL.CONC 190 MG PO (09:33)
[2023-02-01] MEDS: metFORMIN HCl 500 MG TABLET PO ×2 (09:34→16:56)
[2023-02-01] MEDS: Dextroamphetamine/Amphetamine XR 10 MG CAP.ER.24H 40 MG PO (09:34)
[2023-02-01] MEDS: Propranolol HCL 10 MG TABLET PO ×2 (09:34→19:50)
[2023-02-01] MEDS: buPROPion HCl XL 300 MG TAB.ER.24H PO (09:34)
--- NOTE | 2023-02-01 09:34 | P.PNPSI_ITS ---
Subjective Subjective Date of Service: 02/01/23 Reason For Visit: SI Interim History: Met with patient; discussed with team Patient shared much more for history today, the chaotic upbringing she had dealing with her mother who was embroiled in substance abuse and how she went to live with her grandmother which was in some ways better but also an emotional and verbally abusive environment. Patient shared why she gets so impulsively depressed when faced with homelessness which is because in order to get access to her daughter she needs a stable place to live. When faced with homelessness, she gets catastrophic thinking, were ring she will never have a place to live and will never be able to get her daughter back. Patient starting to be more aware of how her thought process influences her feelings and all over more able to challenge her negative thinking. Patient shared that instead of getting a p.r.n., today when anxious she went to clean something which helped her feel distracted and no longer depressed. Patient denies SI/HI; discussed her love for her daughter which is a very strong protective factor Mental Status Exam Mental Status Exam Narrative: Pt is alert and oriented; behavior is cooperative and calm; dressed in casual attire; mood is described as a little better ; eye contact appropriate; Speech is normal rate, volume and prosody and not pressured; no psychomotor agitation/retardation present; thought process is organized; Thought content is on tx, worried about aftercare and wanting to be with her daughter; otherwise pertinent to relevant topics and without any delusional content, paranoid ideations or grandiosity; denies HI/VH/AH. Pt denies SI/HI. Patients insight and judgment are poor. Diagnostics Vital Signs (24Hr): Vital Signs - 24 hr 01/31/23 15:12 01/31/23 18:00 Temperature 97.3 F Pulse Rate 100 79 Blood Pressure 132/62 111/65 Pulse Oximetry 92 Oxygen Delivery Method Room Air BMI result Body Mass Index 49.1 Labs 01/23/23 18:28 01/30/23 09:03 Labs: Laboratory Results - last 48 hr 01/30/23 01/30/23 09:03 18:10 Creatinine 0.69 Estim Creat Clear Calc 140.1 Estimated GFR > 60 COVID-19 (AJ) Negative COVID-19 Clin Com See Note Medications Medications Current Medications Acetaminophen (Acetaminophen 325 Mg Tablet) 650 mg PO Q6H PRN PRN Reason: Headache/Pain Mild Scale (1-3) Last Admin: 01/29/23 17:21 Dose: 650 mg Al Hydroxide/Mg Hydroxide (Magnesium Hydrox/Alum Hydrox 30 Ml Oral.Susp) 30 ml PO Q6H PRN PRN Reason: Heartburn/Nausea Amphetamine/Dextroamphetamine (Dextroamphetamine/Amphetamine Xr 10 Mg Cap.Er.24h) 40 mg PO DAILY AMELIE Last Admin: 01/31/23 08:47 Dose: 40 mg Benzocaine (Throat Lozenge, Medicated Lozenge) 1 lozenge MUCOUS MEM Q2H PRN PRN Reason: Sore Throat Last Admin: 01/31/23 15:13 Dose: 1 lozenge Bupropion HCl (Bupropion Hcl Xl 150 Mg Tab.Er.24h) 150 mg PO DAILY AMELIE Last Admin: 01/31/23 08:49 Dose: 150 mg Bupropion HCl (Bupropion Hcl Xl 300 Mg Tab.Er.24h) 300 mg PO DAILY AMELIE Last Admin: 01/31/23 08:48 Dose: 300 mg Chlorpromazine HCl (Chlorpromazine Hcl 25 Mg Tablet) 50 mg PO BEDTIME AMELIE Last Admin: 01/31/23 20:28 Dose: 50 mg Chlorpromazine HCl (Chlorpromazine Hcl 25 Mg Tablet) 25 mg PO TID PRN PRN Reason: anxiety Last Admin: 01/31/23 12:46 Dose: 25 mg Clonazepam (Clonazepam 1 Mg Tablet) 1 mg PO BID PRN PRN Reason: anxiety Last Admin: 01/31/23 20:29 Dose: 1 mg Clonidine HCl (Clonidine Hcl 0.2 Mg Tablet) 0.4 mg PO BEDTIME AMELIE; Protocol Last Admin: 01/31/23 20:27 Dose: 0.4 mg Clonidine HCl (Clonidine Hcl 0.2 Mg Tablet) 0.2 mg PO BID PRN; Protocol PRN Reason: anxiety Last Admin: 01/31/23 15:14 Dose: 0.2 mg Gabapentin (Gabapentin 600 Mg Tablet) 600 mg PO TID AMELIE Last Admin: 01/31/23 20:28 Dose: 600 mg Hydrochlorothiazide (Hydrochlorothiazide 12.5 Mg Tablet) 12.5 mg PO DAILY AMELIE; Protocol Last Admin: 01/31/23 08:49 Dose: 12.5 mg Hydroxyzine HCl (Hydroxyzine Hcl 25 Mg Tablet) 25 mg PO Q6H PRN PRN Reason: Anxiety Last Admin: 01/31/23 12:46 Dose: 25 mg Ibuprofen (Ibuprofen 600 Mg Tablet) 600 mg PO BID PRN PRN Reason: Pain (Scale Score 1-3) Last Admin: 01/31/23 15:18 Dose: 600 mg Lurasidone HCl (Lurasidone Hcl 40 Mg Tablet) 120 mg PO DAILY@1800 [facility] Last Admin: 01/31/23 17:37 Dose: 120 mg Magnesium Hydroxide (Milk Of Magnesia 30 Ml Oral.Susp) 30 ml PO DAILY PRN PRN Reason: Constipation Metformin HCl (Metformin Hcl 500 Mg Tablet) 500 mg PO BIDWM [facility] Last Admin: 01/31/23 17:38 Dose: 500 mg Methadone HCl (Methadone Hcl 20 Mg/2 Ml Oral.Conc) 190 mg PO DAILY [facility] Last Admin: 01/31/23 08:42 Dose: 190 mg Multivitamins/Vitamin C (Multivitamin Tablet) 1 tab PO DAILY [facility] Last Admin: 01/31/23 08:49 Dose: 1 tab Nicotine (Nicotine 21 Mg Patch.Td24) 21 mg TRANSDERMA DAILY PRN PRN Reason: smoking cessation Last Admin: 01/31/23 08:43 Dose: 21 mg Nicotine Polacrilex (Nicotine Polacrilex 2 Mg Gum) 4 mg BUCCAL Q2H PRN PRN Reason: Nicotine Cravings Omeprazole (Omeprazole 20 Mg Capsule.Dr) 20 mg PO BID@0630,1630 [facility] Last Admin: 02/01/23 05:55 Dose: 20 mg Oxybutynin Chloride (Oxybutynin Chloride 5 Mg Tablet) 5 mg PO TID [facility] Last Admin: 01/31/23 20:27 Dose: 5 mg Propranolol HCl (Propranolol Hcl 10 Mg Tablet) 10 mg PO BID [facility]; Protocol Last Admin: 01/31/23 20:28 Dose: 10 mg Venlafaxine HCl (Venlafaxine Hcl 25 Mg Tablet) 112.5 mg PO DAILY [facility] Last Admin: 01/31/23 08:46 Dose: 112.5 mg Allergies Allergies Allergy/AdvReac Type Severity Reaction Status Date / Time meperidine [From Demerol] Allergy Mild Unknown Verified 04/06/22 09:27 Penicillins Allergy Mild Unknown Verified 04/06/22 09:27 propoxyphene Allergy Mild Unknown Verified 04/06/22 09:27 [From Darnikt-N 50] Sulfa (Sulfonamide Allergy Mild Hives Verified 04/06/22 09:27 Antibiotics) penicillin V Allergy Unknown Swelling Verified 04/06/22 09:27 Assessment & Plan Assessment & Plan (1) Bipolar 1 disorder, depressed, severe: Status: Acute Code(s): F31.4 - Bipolar disorder, current episode depressed, severe, without psychotic features (2) Opioid use disorder, moderate, in early remission: Status: Acute Code(s): F11.21 - Opioid dependence, in remission (3) PTSD (post-traumatic stress disorder): Status: Acute Code(s): F43.10 - Post-traumatic stress disorder, unspecified (4) Diabetes: Status: Acute Code(s): E11.9 - Type 2 diabetes mellitus without complications Plan Patient is a 32-year-old female with history of bipolar disorder, PTSD, diabetes, opioid use disorder in sustained remission on methadone, who presents for worsening depression following unintended discontinuation of Latuda. Patient reports that she was doing quite well after her last discharge, April 2022 and has not been to the hospital since. She [facility] at [facility] which she found very helpful, was seeing her daughter, taking less p.r.n. clonazepam, sober and was doing well up until about a month ago when her insurance stopped covering Latuda; provider reapplied for prior Auth however took considerable time. Since then her mood started to decline and she became really depressed, with low energy, diminished interest, poor concentration, sleep disturbance, appetite disturbance and found it difficult to fulfill obligations at the program. Patient flipped into a mixed-manic episode, talking fast, no sleep, agitated, out at night smoking past curfew, inefficient and impulsively left the program. Patient then became depressed again. She eventually was able to restart Latuda for the past several days however she remains very depressed and started feeling suicidal so self presented to not to hurt herself. Denies any relapse, drug or alcohol use though reports she got close to relapsing with opioids. Denies AVH. Patient remains depressed; wants to get back on former home dose Hospital course: 01/25 patient reports continued depression, continued SI; patient understands that she just got back to her regular dose of Latuda and recovery will take more time; continue current treatment plan 01/26 remains quite depressed with SI; isolating; agrees to push herself into behavioral activation; patient is now back on medication regimen that has helped in the past as and will likely take more time for depression to be again abating; continue current med regimen at this time 01/29 still quite depressed; continue current tx plan 01/30 little less depressed; using coping skill; getting more optimistic 01/31:Patient reports feeling anxious and depressed ; pt stated, I don't know why I feel this way. I just wake up like this . Pt reports suicidal ideation with plan to overdose on heroin; pt stated, I would do it so I wouldn't have to deal with my family or them deal with me. I cause people issues for people . denies HI/VH/AH. Pt c/o sore throat, will order Cepacol lozenges. 02/01 patient doing better, pushing herself to use coping skills which are helping; no SI; much more self aware. Very much hoping for a program as she has remained sober and desperately wants to continue being sober. Plan: CV Q 15 minute checks Continue home medications; typewriter assembly and parts inspector reviewed patient's medication list in detail Continue Latuda to 120 mg daily at dinnertime Patient wants to get back to [facility] but must reapply Dispo planning with social Work Patient educated on: diagnosis, medication risk/benefits, substance abuse and therapeutic strategies Informed Consent: understands Reason for continued inpatient stay Substantial Risk for: rapid decompensation Time Spent With Patient Time: Total time managing care of this patient today ____ minutes.
[2023-02-01] MEDS: Venlafaxine HCL 25 MG TABLET 112.5 MG PO (09:35)
[2023-02-01] MEDS: Gabapentin 600 MG TABLET PO ×3 (09:35→19:52)
[2023-02-01] MEDS: hydroCHLOROthiazide 12.5 MG TABLET PO (09:37)
[2023-02-01] MEDS: Ibuprofen 600 MG TABLET PO ×2 (12:40→19:52)
[2023-02-01] MEDS: Nicotine 21 MG PATCH.TD24 TRANSDERMA (12:40)
[2023-02-01] MEDS: chlorproMAZINE HCl 25 MG TABLET PO (12:46)
[2023-02-01] MEDS: clonazePAM 1 MG TABLET PO ×2 (12:46→19:52)
[2023-02-01] MEDS: Docusate Sodium 100 MG CAPSULE PO ×2 (14:14→19:51)
[2023-02-01] MEDS: Throat Lozenge, Medicated LOZENGE 1 LOZENGE MUCOUS MEM ×2 (14:14→18:31)
[2023-02-01 15:03] LABS: COVID-19 Test Negative (Negative); IDNOW Serial# 08D9AD1C
[2023-02-01] MEDS: Lurasidone HCl 40 MG TABLET 120 MG PO (17:32)
[2023-02-01 18:00] VITALS: BP 111/66; PULSE 94; RESP 18; TEMP 37.1; O2SAT 94
[2023-02-01] MEDS: Acetaminophen 325 MG TABLET 650 MG PO (18:31)
[2023-02-01] MEDS: hydrOXYzine HCL 25 MG TABLET PO (18:32)
[2023-02-01] MEDS: chlorproMAZINE HCl 25 MG TABLET 50 MG PO (19:50)
[2023-02-01] MEDS: cloNIDine HCL 0.2 MG TABLET 0.4 MG PO (19:51)
[2023-02-02 08:42] VITALS: BP 122/70; PULSE 99; RESP 16; TEMP 36.2; O2SAT 95
[2023-02-02] MEDS: Omeprazole 20 MG CAPSULE.DR PO ×2 (08:44→16:17)
[2023-02-02] MEDS: Multivitamin TABLET 1 TAB PO (08:44)
[2023-02-02] MEDS: buPROPion HCl XL 150 MG TAB.ER.24H PO (08:44)
[2023-02-02] MEDS: metFORMIN HCl 500 MG TABLET PO ×2 (08:44→18:02)
[2023-02-02] MEDS: buPROPion HCl XL 300 MG TAB.ER.24H PO (08:44)
[2023-02-02] MEDS: Propranolol HCL 10 MG TABLET PO ×2 (08:44→20:03)
[2023-02-02] MEDS: Dextroamphetamine/Amphetamine XR 10 MG CAP.ER.24H 40 MG PO (08:44)
[2023-02-02] MEDS: oxyBUTYnin chloride 5 MG TABLET PO ×3 (08:44→20:03)
[2023-02-02] MEDS: Gabapentin 600 MG TABLET PO ×3 (08:44→20:03)
[2023-02-02] MEDS: hydroCHLOROthiazide 12.5 MG TABLET PO (08:44)
[2023-02-02] MEDS: methADONE HCl 20 MG/2 ML ORAL.CONC 190 MG PO (08:46)
[2023-02-02] MEDS: Venlafaxine HCL 25 MG TABLET 112.5 MG PO (09:40)
[2023-02-02] MEDS: Ibuprofen 600 MG TABLET PO ×2 (09:40→16:21)
[2023-02-02] MEDS: cloNIDine HCL 0.2 MG TABLET PO ×2 (09:40→16:25)
--- NOTE | 2023-02-02 09:47 | HO.PSYCHPN ---
Subjective Subjective Date of Service: 02/02/23 Reason For Visit: SI Interim History: Met with patient; discussed with team Though still with some depression, Patient reports improved mood; however still very anxious; discussed medication management and patient agreed to go up on Effexor to see if they can help with anxiety and depression. Patient still focusing on using coping skills instead of resorting to PRNs. Mental Status Exam Mental Status Exam Narrative: Pt is alert and oriented; behavior is cooperative and calm; dressed in casual attire, good hygiene; mood is described as a little better and affect brighter, more calm eye contact appropriate; Speech is normal rate, volume and prosody and not pressured; no psychomotor agitation/retardation present; thought process is organized; Thought content is on tx, worried about aftercare and wanting to be with her daughter; otherwise pertinent to relevant topics and without any delusional content, paranoid ideations or grandiosity; denies HI/VH/AH. Pt denies SI/HI. Patients insight and judgment are poor. Diagnostics Vital Signs (24Hr): Vital Signs - 24 hr 02/01/23 18:00 Temperature 98.7 F Pulse Rate 94 Respiratory Rate 18 Blood Pressure 111/66 Pulse Oximetry 94 BMI result Body Mass Index 49.1 Labs 01/23/23 18:28 01/30/23 09:03 Labs: Laboratory Results - last 48 hr 02/01/23 14:10 COVID-19 (AJ) Negative COVID-19 Clin Com See Note Medications Medications Current Medications Acetaminophen (Acetaminophen 325 Mg Tablet) 650 mg PO Q6H PRN PRN Reason: Headache/Pain Mild Scale (1-3) Last Admin: 02/01/23 18:31 Dose: 650 mg Al Hydroxide/Mg Hydroxide (Magnesium Hydrox/Alum Hydrox 30 Ml Oral.Susp) 30 ml PO Q6H PRN PRN Reason: Heartburn/Nausea Amphetamine/Dextroamphetamine (Dextroamphetamine/Amphetamine Xr 10 Mg Cap.Er.24h) 40 mg PO DAILY AMELIE Last Admin: 02/02/23 08:44 Dose: 40 mg Benzocaine (Throat Lozenge, Medicated Lozenge) 1 lozenge MUCOUS MEM Q2H PRN PRN Reason: Sore Throat Last Admin: 02/01/23 18:31 Dose: 1 lozenge Bupropion HCl (Bupropion Hcl Xl 150 Mg Tab.Er.24h) 150 mg PO DAILY AMELIE Last Admin: 02/02/23 08:44 Dose: 150 mg Bupropion HCl (Bupropion Hcl Xl 300 Mg Tab.Er.24h) 300 mg PO DAILY AMELIE Last Admin: 02/02/23 08:44 Dose: 300 mg Chlorpromazine HCl (Chlorpromazine Hcl 25 Mg Tablet) 50 mg PO BEDTIME AMELIE Last Admin: 02/01/23 19:50 Dose: 50 mg Chlorpromazine HCl (Chlorpromazine Hcl 25 Mg Tablet) 25 mg PO TID PRN PRN Reason: anxiety Last Admin: 02/01/23 12:46 Dose: 25 mg Clonazepam (Clonazepam 1 Mg Tablet) 1 mg PO BID PRN PRN Reason: anxiety Last Admin: 02/01/23 19:52 Dose: 1 mg Clonidine HCl (Clonidine Hcl 0.2 Mg Tablet) 0.4 mg PO BEDTIME AMELIE; Protocol Last Admin: 02/01/23 19:51 Dose: 0.4 mg Clonidine HCl (Clonidine Hcl 0.2 Mg Tablet) 0.2 mg PO BID PRN; Protocol PRN Reason: anxiety Last Admin: 02/02/23 09:40 Dose: 0.2 mg Docusate Sodium (Docusate Sodium 100 Mg Capsule) 100 mg PO BID PRN PRN Reason: constipation Last Admin: 02/01/23 19:51 Dose: 100 mg Gabapentin (Gabapentin 600 Mg Tablet) 600 mg PO TID AMELIE Last Admin: 02/02/23 08:44 Dose: 600 mg Hydrochlorothiazide (Hydrochlorothiazide 12.5 Mg Tablet) 12.5 mg PO DAILY AMELIE; Protocol Last Admin: 02/02/23 08:44 Dose: 12.5 mg Hydroxyzine HCl (Hydroxyzine Hcl 25 Mg Tablet) 25 mg PO Q6H PRN PRN Reason: Anxiety Last Admin: 02/01/23 18:32 Dose: 25 mg Ibuprofen (Ibuprofen 600 Mg Tablet) 600 mg PO BID PRN PRN Reason: Pain (Scale Score 1-3) Last Admin: 02/02/23 09:40 Dose: 600 mg Lurasidone HCl (Lurasidone Hcl 40 Mg Tablet) 120 mg PO DAILY@1800 AMELIE Last Admin: 02/01/23 17:32 Dose: 120 mg Magnesium Hydroxide (Milk Of Magnesia 30 Ml Oral.Susp) 30 ml PO DAILY PRN PRN Reason: Constipation Metformin HCl (Metformin Hcl 500 Mg Tablet) 500 mg PO BIDWM [facility] Last Admin: 02/02/23 08:44 Dose: 500 mg Methadone HCl (Methadone Hcl 20 Mg/2 Ml Oral.Conc) 190 mg PO DAILY [facility] Last Admin: 02/02/23 08:46 Dose: 190 mg Multivitamins/Vitamin C (Multivitamin Tablet) 1 tab PO DAILY [facility] Last Admin: 02/02/23 08:44 Dose: 1 tab Nicotine (Nicotine 21 Mg Patch.Td24) 21 mg TRANSDERMA DAILY PRN PRN Reason: smoking cessation Last Admin: 02/01/23 12:40 Dose: 21 mg Nicotine Polacrilex (Nicotine Polacrilex 2 Mg Gum) 4 mg BUCCAL Q2H PRN PRN Reason: Nicotine Cravings Omeprazole (Omeprazole 20 Mg Capsule.Dr) 20 mg PO BID@0630,1630 [facility] Last Admin: 02/02/23 08:44 Dose: 20 mg Oxybutynin Chloride (Oxybutynin Chloride 5 Mg Tablet) 5 mg PO TID [facility] Last Admin: 02/02/23 08:44 Dose: 5 mg Propranolol HCl (Propranolol Hcl 10 Mg Tablet) 10 mg PO BID [facility]; Protocol Last Admin: 02/02/23 08:44 Dose: 10 mg Venlafaxine HCl (Venlafaxine Hcl 25 Mg Tablet) 112.5 mg PO DAILY [facility] Last Admin: 02/02/23 09:40 Dose: 112.5 mg Allergies Allergies Allergy/AdvReac Type Severity Reaction Status Date / Time meperidine [From Demerol] Allergy Mild Unknown Verified 04/06/22 09:27 Penicillins Allergy Mild Unknown Verified 04/06/22 09:27 propoxyphene Allergy Mild Unknown Verified 04/06/22 09:27 [From Darvocet-N 50] Sulfa (Sulfonamide Allergy Mild Hives Verified 04/06/22 09:27 Antibiotics) penicillin V Allergy Unknown Swelling Verified 04/06/22 09:27 Assessment & Plan Assessment & Plan (1) Bipolar 1 disorder, depressed, severe: Status: Acute Code(s): F31.4 - Bipolar disorder, current episode depressed, severe, without psychotic features (2) Opioid use disorder, moderate, in early remission: Status: Acute Code(s): F11.21 - Opioid dependence, in remission (3) PTSD (post-traumatic stress disorder): Status: Acute Code(s): F43.10 - Post-traumatic stress disorder, unspecified (4) Diabetes: Status: Acute Code(s): E11.9 - Type 2 diabetes mellitus without complications Plan Patient is a 32-year-old female with history of bipolar disorder, PTSD, diabetes, opioid use disorder in sustained remission on methadone, who presents for worsening depression following unintended discontinuation of Latuda. Patient reports that she was doing quite well after her last discharge, April 2022 and has not been to the hospital since. [facility] at [facility] which she found very helpful, was seeing her daughter, taking less p.r.n. clonazepam, sober and was doing well up until about a month ago when her insurance stopped covering Latuda; provider reapplied for prior Auth however took considerable time. Since then her mood started to decline and she became really depressed, with low energy, diminished interest, poor concentration, sleep disturbance, appetite disturbance and found it difficult to fulfill obligations at the program. Patient flipped into a mixed-manic episode, talking fast, no sleep, agitated, out at night smoking past curfew, inefficient and impulsively left the program. Patient then became depressed again. She eventually was able to restart Latuda for the past several days however she remains very depressed and started feeling suicidal so self presented to not to hurt herself. Denies any relapse, drug or alcohol use though reports she got close to relapsing with opioids. Denies AVH. Patient remains depressed; wants to get back on former home dose Hospital course: 01/25 patient reports continued depression, continued SI; patient understands that she just got back to her regular dose of Latuda and recovery will take more time; continue current treatment plan 01/26 remains quite depressed with SI; isolating; agrees to push herself into behavioral activation; patient is now back on medication regimen that has helped in the past as and will likely take more time for depression to be again abating; continue current med regimen at this time 01/29 still quite depressed; continue current tx plan 01/30 little less depressed; using coping skill; getting more optimistic 01/31:Patient reports feeling anxious and depressed ; pt stated, I don't know why I feel this way. I just wake up like this . Pt reports suicidal ideation with plan to overdose on heroin; pt stated, I would do it so I wouldn't have to deal with my family or them deal with me. I cause people issues for people . denies HI/VH/AH. Pt c/o sore throat, will order Cepacol lozenges. 02/01 patient doing better, pushing herself to use coping skills which are helping; no SI; much more self aware. Very much hoping for a program as she has remained sober and desperately wants to continue being sober. 02/02 Though still with some depression, Patient reports improved mood; however still very anxious; discussed medication management and patient agreed to go up on Effexor to see if they can help with anxiety and depression. Patient still focusing on using coping skills instead of resorting to PRNs. Plan: CV Q 15 minute checks Increase Effexor XR to 150 mg daily for continued anxiety Continue Latuda to 120 mg daily at dinnertime Patient wants to get back to [facility] but must reapply Dispo planning with social Work Patient educated on: diagnosis, medication risk/benefits and therapeutic strategies Informed Consent: understands Reason for continued inpatient stay Substantial Risk for: rapid decompensation Time Spent With Patient Time: Total time managing care of this patient today ____ minutes.
[2023-02-02] MEDS: clonazePAM 1 MG TABLET PO ×2 (13:20→20:02)
[2023-02-02] MEDS: Acetaminophen 325 MG TABLET 650 MG PO ×2 (13:20→20:02)
[2023-02-02] MEDS: chlorproMAZINE HCl 25 MG TABLET PO (13:21)
[2023-02-02 16:43] VITALS: BP 105/56; PULSE 96; TEMP 35.9; O2SAT 96
[2023-02-02] MEDS: Lurasidone HCl 40 MG TABLET 120 MG PO (18:02)
[2023-02-02] MEDS: cloNIDine HCL 0.2 MG TABLET 0.4 MG PO (20:04)
[2023-02-02] MEDS: chlorproMAZINE HCl 25 MG TABLET 50 MG PO (20:04)
[2023-02-02] MEDS: Throat Lozenge, Medicated LOZENGE 1 LOZENGE MUCOUS MEM (21:37)
[2023-02-03] MEDS: Omeprazole 20 MG CAPSULE.DR PO ×2 (05:58→17:15)
--- NOTE | 2023-02-03 08:44 | HO.PSYCHPN ---
Subjective Subjective Date of Service: 02/03/23 Reason For Visit: SI Subjective Notes: Conditional Voluntary Healthcare Proxy: No Guardianship: No Medical Problems Affecting Mental Status: No Interim History: Pt seen, reviewed with team Tasha reports she is working on coping skills-team affirms, she is working hard on developing skills vs using medications for symptom mgt. No questions or concerns she reports today. She continues with depressive and anxious sx. Medication Compliance: Yes Side effects from medications: No Attending Groups: No Review of Systems Acute medical concerns: No Medical Review of Systems: unchanged Review of Systems Review of Systems Yes all other systems are reviewed and are negative Mental Status Exam Mental Status Exam Patient Appearance: Fatigued Patient Orientation: Person, Place, Time and Situation Level of Consciousness: Alert Patient Behavior: Appropriate, Talkative and Good Eye Contact Mood Description: Withdrawn and Anxious Affect Description: Flat Patient Cognition Impaired: No Ability to Follow Directions: Good Speech Pattern: Spontaneous Speech Memory Description: Intact Hallucinations: None Delusions: Not Present Thought Process: Rumination Thought Content: positive for [place] and positive for Suicidal Ideation (denies) Depressive Symptoms: Increased Anxiety, Hopelessness and Thoughts of /Suicide (denies) Judgement: Good Diagnostics Vital Signs (24Hr): Vital Signs - 24 hr 02/02/23 16:43 Temperature 96.7 F L Pulse Rate 96 Blood Pressure 105/56 L Pulse Oximetry 96 Oxygen Delivery Method Room Air BMI result Body Mass Index 49.1 Labs 01/23/23 18:28 01/30/23 09:03 Labs: Laboratory Results - last 48 hr 02/01/23 14:10 COVID-19 (AJ) Negative COVID-19 Clin Com See Note Medications Medications Current Medications Acetaminophen (Acetaminophen 325 Mg Tablet) 650 mg PO Q6H PRN PRN Reason: Headache/Pain Mild Scale (1-3) Last Admin: 02/02/23 20:02 Dose: 650 mg Al Hydroxide/Mg Hydroxide (Magnesium Hydrox/Alum Hydrox 30 Ml Oral.Susp) 30 ml PO Q6H PRN PRN Reason: Heartburn/Nausea Amphetamine/Dextroamphetamine (Dextroamphetamine/Amphetamine Xr 10 Mg Cap.Er.24h) 40 mg PO DAILY AMELIE Last Admin: 02/02/23 08:44 Dose: 40 mg Benzocaine (Throat Lozenge, Medicated Lozenge) 1 lozenge MUCOUS MEM Q2H PRN PRN Reason: Sore Throat Last Admin: 02/02/23 21:37 Dose: 1 lozenge Bupropion HCl (Bupropion Hcl Xl 150 Mg Tab.Er.24h) 150 mg PO DAILY [facility] Last Admin: 02/02/23 08:44 Dose: 150 mg Bupropion HCl (Bupropion Hcl Xl 300 Mg Tab.Er.24h) 300 mg PO DAILY AMELIE Last Admin: 02/02/23 08:44 Dose: 300 mg Chlorpromazine HCl (Chlorpromazine Hcl 25 Mg Tablet) 50 mg PO BEDTIME AMELIE Last Admin: 02/02/23 20:04 Dose: 50 mg Chlorpromazine HCl (Chlorpromazine Hcl 25 Mg Tablet) 25 mg PO TID PRN PRN Reason: anxiety Last Admin: 02/02/23 13:21 Dose: 25 mg Clonazepam (Clonazepam 1 Mg Tablet) 1 mg PO BID PRN PRN Reason: anxiety Last Admin: 02/02/23 20:02 Dose: 1 mg Clonidine HCl (Clonidine Hcl 0.2 Mg Tablet) 0.4 mg PO BEDTIME AMELIE; Protocol Last Admin: 02/02/23 20:04 Dose: 0.4 mg Clonidine HCl (Clonidine Hcl 0.2 Mg Tablet) 0.2 mg PO BID PRN; Protocol PRN Reason: anxiety Last Admin: 02/02/23 16:25 Dose: 0.2 mg Docusate Sodium (Docusate Sodium 100 Mg Capsule) 100 mg PO BID PRN PRN Reason: constipation Last Admin: 02/01/23 19:51 Dose: 100 mg Gabapentin (Gabapentin 600 Mg Tablet) 600 mg PO TID [facility] Last Admin: 02/02/23 20:03 Dose: 600 mg Hydrochlorothiazide (Hydrochlorothiazide 12.5 Mg Tablet) 12.5 mg PO DAILY AMELIE; Protocol Last Admin: 02/02/23 08:44 Dose: 12.5 mg Hydroxyzine HCl (Hydroxyzine Hcl 25 Mg Tablet) 25 mg PO Q6H PRN PRN Reason: Anxiety Last Admin: 02/01/23 18:32 Dose: 25 mg Ibuprofen (Ibuprofen 600 Mg Tablet) 600 mg PO BID PRN PRN Reason: Pain (Scale Score 1-3) Last Admin: 02/02/23 16:21 Dose: 600 mg Lurasidone HCl (Lurasidone Hcl 40 Mg Tablet) 120 mg PO DAILY@1800 AMELIE Last Admin: 02/02/23 18:02 Dose: 120 mg Magnesium Hydroxide (Milk Of Magnesia 30 Ml Oral.Susp) 30 ml PO DAILY PRN PRN Reason: Constipation Metformin HCl (Metformin Hcl 500 Mg Tablet) 500 mg PO BIDWM [facility] Last Admin: 02/02/23 18:02 Dose: 500 mg Methadone HCl (Methadone Hcl 20 Mg/2 Ml Oral.Conc) 190 mg PO DAILY [facility] Last Admin: 02/02/23 08:46 Dose: 190 mg Multivitamins/Vitamin C (Multivitamin Tablet) 1 tab PO DAILY [facility] Last Admin: 02/02/23 08:44 Dose: 1 tab Nicotine (Nicotine 21 Mg Patch.Td24) 21 mg TRANSDERMA DAILY PRN PRN Reason: smoking cessation Last Admin: 02/01/23 12:40 Dose: 21 mg Nicotine Polacrilex (Nicotine Polacrilex 2 Mg Gum) 4 mg BUCCAL Q2H PRN PRN Reason: Nicotine Cravings Omeprazole (Omeprazole 20 Mg Capsule.Dr) 20 mg PO BID@0630,1630 [facility] Last Admin: 02/03/23 05:58 Dose: 20 mg Oxybutynin Chloride (Oxybutynin Chloride 5 Mg Tablet) 5 mg PO TID [facility] Last Admin: 02/02/23 20:03 Dose: 5 mg Propranolol HCl (Propranolol Hcl 10 Mg Tablet) 10 mg PO BID [facility]; Protocol Last Admin: 02/02/23 20:03 Dose: 10 mg Venlafaxine HCl (Venlafaxine Hcl Er 150 Mg Cap.Er.24h) 150 mg PO DAILY [facility] Allergies Allergies Allergy/AdvReac Type Severity Reaction Status Date / Time meperidine [From Demerol] Allergy Mild Unknown Verified 04/06/22 09:27 Penicillins Allergy Mild Unknown Verified 04/06/22 09:27 propoxyphene Allergy Mild Unknown Verified 04/06/22 09:27 [From Darvocet-N 50] Sulfa (Sulfonamide Allergy Mild Hives Verified 04/06/22 09:27 Antibiotics) penicillin V Allergy Unknown Swelling Verified 04/06/22 09:27 Assessment & Plan Assessment & Plan (1) Bipolar 1 disorder, depressed, severe: Status: Acute Code(s): F31.4 - Bipolar disorder, current episode depressed, severe, without psychotic features (2) Opioid use disorder, moderate, in early remission: Status: Acute Code(s): F11.21 - Opioid dependence, in remission (3) PTSD (post-traumatic stress disorder): Status: Acute Code(s): F43.10 - Post-traumatic stress disorder, unspecified (4) Diabetes: Status: Acute Code(s): E11.9 - Type 2 diabetes mellitus without complications Plan Patient is a 32-year-old female with history of bipolar disorder, PTSD, diabetes, opioid use disorder in sustained remission on methadone, who presents for worsening depression following unintended discontinuation of Latuda. Patient reports that she was doing quite well after her last discharge, April 2022 and has not been to the hospital since. [facility] at [facility] which she found very helpful, was seeing her daughter, taking less p.r.n. clonazepam, sober and was doing well up until about a month ago when her insurance stopped covering Latuda; provider reapplied for prior Auth however took considerable time. Since then her mood started to decline and she became really depressed, with low energy, diminished interest, poor concentration, sleep disturbance, appetite disturbance and found it difficult to fulfill obligations at the program. Patient flipped into a mixed-manic episode, talking fast, no sleep, agitated, out at night smoking past curfew, inefficient and impulsively left the program. Patient then became depressed again. She eventually was able to restart Latuda for the past several days however she remains very depressed and started feeling suicidal so self presented to not to hurt herself. Denies any relapse, drug or alcohol use though reports she got close to relapsing with opioids. Denies AVH. Patient remains depressed; wants to get back on former home dose Hospital course: 01/25 patient reports continued depression, continued SI; patient understands that she just got back to her regular dose of Latuda and recovery will take more time; continue current treatment plan 01/26 remains quite depressed with SI; isolating; agrees to push herself into behavioral activation; patient is now back on medication regimen that has helped in the past as and will likely take more time for depression to be again abating; continue current med regimen at this time 01/29 still quite depressed; continue current tx plan 01/30 little less depressed; using coping skill; getting more optimistic 01/31:Patient reports feeling anxious and depressed ; pt stated, I don't know why I feel this way. I just wake up like this . Pt reports suicidal ideation with plan to overdose on heroin; pt stated, I would do it so I wouldn't have to deal with my family or them deal with me. I cause people issues for people . denies HI/VH/AH. Pt c/o sore throat, will order Cepacol lozenges. 02/01 patient doing better, pushing herself to use coping skills which are helping; no SI; much more self aware. Very much hoping for a program as she has remained sober and desperately wants to continue being sober. 02/02 Though still with some depression, Patient reports improved mood; however still very anxious; discussed medication management and patient agreed to go up on Effexor to see if they can help with anxiety and depression. Patient still focusing on using coping skills instead of resorting to PRNs. 02/03 Continue current regime and plan of care. Plan: CV Q 15 minute checks Increase Effexor XR to 150 mg daily for continued anxiety Continue Latuda to 120 mg daily at dinnertime Patient wants to get back to [facility] but must reapply Dispo planning with social Work Patient educated on: medication risk/benefits and therapeutic strategies Informed Consent: understands Reason for continued inpatient stay Substantial Risk for: rapid decompensation Time Spent With Patient Time: Total time managing care of this patient today ____ minutes.
[2023-02-03 08:56] VITALS: BP 113/63; PULSE 77; RESP 18; TEMP 36.3; O2SAT 93
[2023-02-03] MEDS: Dextroamphetamine/Amphetamine XR 10 MG CAP.ER.24H 40 MG PO (08:58)
[2023-02-03] MEDS: Gabapentin 600 MG TABLET PO ×3 (08:58→20:35)
[2023-02-03] MEDS: Propranolol HCL 10 MG TABLET PO ×2 (08:58→20:35)
[2023-02-03] MEDS: methADONE HCl 20 MG/2 ML ORAL.CONC 190 MG PO (08:58)
[2023-02-03] MEDS: buPROPion HCl XL 300 MG TAB.ER.24H PO (08:59)
[2023-02-03] MEDS: metFORMIN HCl 500 MG TABLET PO ×2 (08:59→17:15)
[2023-02-03] MEDS: oxyBUTYnin chloride 5 MG TABLET PO ×3 (08:59→20:35)
[2023-02-03] MEDS: hydroCHLOROthiazide 12.5 MG TABLET PO (08:59)
[2023-02-03] MEDS: Venlafaxine HCl ER 150 MG CAP.ER.24H PO (08:59)
[2023-02-03] MEDS: Multivitamin TABLET 1 TAB PO (08:59)
[2023-02-03] MEDS: buPROPion HCl XL 150 MG TAB.ER.24H PO (08:59)
[2023-02-03 12:39] LABS: COVID-19 Test Negative (Negative); IDNOW Serial# 08D9AD1C
[2023-02-03] MEDS: Ibuprofen 600 MG TABLET PO (13:51)
[2023-02-03] MEDS: clonazePAM 1 MG TABLET PO ×2 (13:51→20:29)
[2023-02-03] MEDS: chlorproMAZINE HCl 25 MG TABLET PO (13:51)
[2023-02-03] MEDS: cloNIDine HCL 0.2 MG TABLET PO (15:00)
[2023-02-03 17:00] VITALS: BP 106/66; PULSE 75; TEMP 36.6; O2SAT 94
[2023-02-03] MEDS: Lurasidone HCl 40 MG TABLET 120 MG PO (17:15)
[2023-02-03] MEDS: Acetaminophen 325 MG TABLET 650 MG PO (20:21)
[2023-02-03] MEDS: chlorproMAZINE HCl 25 MG TABLET 50 MG PO (20:35)
[2023-02-03] MEDS: cloNIDine HCL 0.2 MG TABLET 0.4 MG PO (20:35)
[2023-02-04] MEDS: Acetaminophen 325 MG TABLET 650 MG PO (04:01)
[2023-02-04] MEDS: cloNIDine HCL 0.2 MG TABLET PO ×2 (04:01→15:55)
[2023-02-04] MEDS: Omeprazole 20 MG CAPSULE.DR PO ×2 (06:32→15:54)
[2023-02-04 08:30] VITALS: BP 117/71; PULSE 67; TEMP 36.1; O2SAT 92
[2023-02-04] MEDS: methADONE HCl 20 MG/2 ML ORAL.CONC 190 MG PO (09:44)
[2023-02-04] MEDS: Multivitamin TABLET 1 TAB PO (09:45)
[2023-02-04] MEDS: Propranolol HCL 10 MG TABLET PO ×2 (09:45→19:51)
[2023-02-04] MEDS: oxyBUTYnin chloride 5 MG TABLET PO ×3 (09:45→19:52)
[2023-02-04] MEDS: Gabapentin 600 MG TABLET PO ×3 (09:45→19:52)
[2023-02-04] MEDS: metFORMIN HCl 500 MG TABLET PO ×2 (09:45→15:55)
[2023-02-04] MEDS: Venlafaxine HCl ER 150 MG CAP.ER.24H PO (09:45)
[2023-02-04] MEDS: buPROPion HCl XL 300 MG TAB.ER.24H PO (09:45)
[2023-02-04] MEDS: Dextroamphetamine/Amphetamine XR 10 MG CAP.ER.24H 40 MG PO (09:46)
[2023-02-04] MEDS: hydroCHLOROthiazide 12.5 MG TABLET PO (09:46)
[2023-02-04] MEDS: buPROPion HCl XL 150 MG TAB.ER.24H PO (09:46)
[2023-02-04] MEDS: chlorproMAZINE HCl 25 MG TABLET PO (13:14)
[2023-02-04] MEDS: clonazePAM 1 MG TABLET PO ×2 (13:14→19:52)
--- NOTE | 2023-02-04 14:25 | HO.PSYCHPN ---
Subjective Subjective Date of Service: 02/04/23 Reason For Visit: SI Subjective Notes: Conditional Voluntary Healthcare Proxy: No Guardianship: No Medical Problems Affecting Mental Status: No Interim History: Pt seen, reviewed with the team. Pt working to decrease overall med/prn intake via working on coping skills. She is focused and diligent in her efforts. Discussed peter. In her out pt treatment, Peter is bid prn also with a change of timing. She is allowed to use it every 6 hours prn. We discussed this, and she discussed this with nursing. We will continue that plan while in pt as it has worked best for her. Medication Compliance: Yes Side effects from medications: No Attending Groups: No Review of Systems Acute medical concerns: No Review of Systems Review of Systems Yes all other systems are reviewed and are negative Mental Status Exam Mental Status Exam Patient Appearance: Fatigued Patient Orientation: Person, Place, Time and Situation Level of Consciousness: Alert Patient Behavior: Appropriate, Talkative and Good Eye Contact Mood Description: Withdrawn and Anxious Affect Description: Flat Patient Cognition Impaired: No Ability to Follow Directions: Good Speech Pattern: Spontaneous Speech Memory Description: Intact Hallucinations: None Delusions: Not Present Thought Process: Rumination Thought Content: positive for [place] and positive for Suicidal Ideation (denies) Depressive Symptoms: Increased Anxiety, Hopelessness and Thoughts of /Suicide (denies) Judgement: Good Diagnostics Vital Signs (24Hr): Vital Signs - 24 hr 02/03/23 17:00 02/04/23 08:30 Temperature 97.9 F 96.9 F Pulse Rate 75 67 Blood Pressure 106/66 117/71 Pulse Oximetry 94 92 Oxygen Delivery Method Room Air Room Air BMI result Body Mass Index 49.1 Labs 01/23/23 18:28 01/30/23 09:03 Labs: Laboratory Results - last 48 hr 02/03/23 12:15 COVID-19 (AJ) Negative COVID-19 Clin Com See Note Medications Medications Current Medications Acetaminophen (Acetaminophen 325 Mg Tablet) 650 mg PO Q6H PRN PRN Reason: Headache/Pain Mild Scale (1-3) Last Admin: 02/04/23 04:01 Dose: 650 mg Al Hydroxide/Mg Hydroxide (Magnesium Hydrox/Alum Hydrox 30 Ml Oral.Susp) 30 ml PO Q6H PRN PRN Reason: Heartburn/Nausea Amphetamine/Dextroamphetamine (Dextroamphetamine/Amphetamine Xr 10 Mg Cap.Er.24h) 40 mg PO DAILY AMELIE Last Admin: 02/04/23 09:46 Dose: 40 mg Benzocaine (Throat Lozenge, Medicated Lozenge) 1 lozenge MUCOUS MEM Q2H PRN PRN Reason: Sore Throat Last Admin: 02/02/23 21:37 Dose: 1 lozenge Bupropion HCl (Bupropion Hcl Xl 150 Mg Tab.Er.24h) 150 mg PO DAILY AMELIE Last Admin: 02/04/23 09:46 Dose: 150 mg Bupropion HCl (Bupropion Hcl Xl 300 Mg Tab.Er.24h) 300 mg PO DAILY AMELIE Last Admin: 02/04/23 09:45 Dose: 300 mg Chlorpromazine HCl (Chlorpromazine Hcl 25 Mg Tablet) 50 mg PO BEDTIME AMELIE Last Admin: 02/03/23 20:35 Dose: 50 mg Chlorpromazine HCl (Chlorpromazine Hcl 25 Mg Tablet) 25 mg PO TID PRN PRN Reason: anxiety Last Admin: 02/04/23 13:14 Dose: 25 mg Clonazepam (Clonazepam 1 Mg Tablet) 1 mg PO BID PRN PRN Reason: anxiety Last Admin: 02/04/23 13:14 Dose: 1 mg Clonidine HCl (Clonidine Hcl 0.2 Mg Tablet) 0.4 mg PO BEDTIME AMELIE; Protocol Last Admin: 02/03/23 20:35 Dose: 0.4 mg Clonidine HCl (Clonidine Hcl 0.2 Mg Tablet) 0.2 mg PO BID PRN; Protocol PRN Reason: anxiety Last Admin: 02/04/23 04:01 Dose: 0.2 mg Docusate Sodium (Docusate Sodium 100 Mg Capsule) 100 mg PO BID PRN PRN Reason: constipation Last Admin: 02/01/23 19:51 Dose: 100 mg Gabapentin (Gabapentin 600 Mg Tablet) 600 mg PO TID AMELIE Last Admin: 02/04/23 14:14 Dose: 600 mg Hydrochlorothiazide (Hydrochlorothiazide 12.5 Mg Tablet) 12.5 mg PO DAILY AMELIE; Protocol Last Admin: 02/04/23 09:46 Dose: 12.5 mg Hydroxyzine HCl (Hydroxyzine Hcl 25 Mg Tablet) 25 mg PO Q6H PRN PRN Reason: Anxiety Last Admin: 02/01/23 18:32 Dose: 25 mg Ibuprofen (Ibuprofen 600 Mg Tablet) 600 mg PO BID PRN PRN Reason: Pain (Scale Score 1-3) Last Admin: 02/03/23 13:51 Dose: 600 mg Lurasidone HCl (Lurasidone Hcl 40 Mg Tablet) 120 mg PO DAILY@1800 [facility] Last Admin: 02/03/23 17:15 Dose: 120 mg Magnesium Hydroxide (Milk Of Magnesia 30 Ml Oral.Susp) 30 ml PO DAILY PRN PRN Reason: Constipation Metformin HCl (Metformin Hcl 500 Mg Tablet) 500 mg PO BIDWM [facility] Last Admin: 02/04/23 09:45 Dose: 500 mg Methadone HCl (Methadone Hcl 20 Mg/2 Ml Oral.Conc) 190 mg PO DAILY [facility] Last Admin: 02/04/23 09:44 Dose: 190 mg Multivitamins/Vitamin C (Multivitamin Tablet) 1 tab PO DAILY [facility] Last Admin: 02/04/23 09:45 Dose: 1 tab Nicotine (Nicotine 21 Mg Patch.Td24) 21 mg TRANSDERMA DAILY PRN PRN Reason: smoking cessation Last Admin: 02/01/23 12:40 Dose: 21 mg Nicotine Polacrilex (Nicotine Polacrilex 2 Mg Gum) 4 mg BUCCAL Q2H PRN PRN Reason: Nicotine Cravings Omeprazole (Omeprazole 20 Mg Capsule.Dr) 20 mg PO BID@0630,1630 [facility] Last Admin: 02/04/23 06:32 Dose: 20 mg Oxybutynin Chloride (Oxybutynin Chloride 5 Mg Tablet) 5 mg PO TID [facility] Last Admin: 02/04/23 14:14 Dose: 5 mg Propranolol HCl (Propranolol Hcl 10 Mg Tablet) 10 mg PO BID [facility]; Protocol Last Admin: 02/04/23 09:45 Dose: 10 mg Venlafaxine HCl (Venlafaxine Hcl Er 150 Mg Cap.Er.24h) 150 mg PO DAILY [facility] Last Admin: 02/04/23 09:45 Dose: 150 mg Allergies Allergies Allergy/AdvReac Type Severity Reaction Status Date / Time meperidine [From Demerol] Allergy Mild Unknown Verified 04/06/22 09:27 Penicillins Allergy Mild Unknown Verified 04/06/22 09:27 propoxyphene Allergy Mild Unknown Verified 04/06/22 09:27 [From Darvocet-N 50] Sulfa (Sulfonamide Allergy Mild Hives Verified 04/06/22 09:27 Antibiotics) penicillin V Allergy Unknown Swelling Verified 02/02/23 09:27 Assessment & Plan Assessment & Plan (1) Bipolar 1 disorder, depressed, severe: Status: Acute Code(s): F31.4 - Bipolar disorder, current episode depressed, severe, without psychotic features (2) Opioid use disorder, moderate, in early remission: Status: Acute Code(s): F11.21 - Opioid dependence, in remission (3) PTSD (post-traumatic stress disorder): Status: Acute Code(s): F43.10 - Post-traumatic stress disorder, unspecified (4) Diabetes: Status: Acute Code(s): E11.9 - Type 2 diabetes mellitus without complications Plan Patient is a 32-year-old female with history of bipolar disorder, PTSD, diabetes, opioid use disorder in sustained remission on methadone, who presents for worsening depression following unintended discontinuation of Latuda. Patient reports that she was doing quite well after her last discharge, April 2022 and has not been to the hospital since. [facility] which she found very helpful, was seeing her daughter, taking less p.r.n. clonazepam, sober and was doing well up until about a month ago when her insurance stopped covering Latuda; provider reapplied for prior Auth however took considerable time. Since then her mood started to decline and she became really depressed, with low energy, diminished interest, poor concentration, sleep disturbance, appetite disturbance and found it difficult to fulfill obligations at the program. Patient flipped into a mixed-manic episode, talking fast, no sleep, agitated, out at night smoking past curfew, inefficient and impulsively left the program. Patient then became depressed again. She eventually was able to restart Latuda for the past several days however she remains very depressed and started feeling suicidal so self presented to not to hurt herself. Denies any relapse, drug or alcohol use though reports she got close to relapsing with opioids. Denies AVH. Patient remains depressed; wants to get back on former home dose Hospital course: 01/25 patient reports continued depression, continued SI; patient understands that she just got back to her regular dose of Latuda and recovery will take more time; continue current treatment plan 01/26 remains quite depressed with SI; isolating; agrees to push herself into behavioral activation; patient is now back on medication regimen that has helped in the past as and will likely take more time for depression to be again abating; continue current med regimen at this time 01/29 still quite depressed; continue current tx plan 01/30 little less depressed; using coping skill; getting more optimistic 01/31:Patient reports feeling anxious and depressed ; pt stated, I don't know why I feel this way. I just wake up like this . Pt reports suicidal ideation with plan to overdose on heroin; pt stated, I would do it so I wouldn't have to deal with my family or them deal with me. I cause people issues for people . denies HI/VH/AH. Pt c/o sore throat, will order Cepacol lozenges. 02/01 patient doing better, pushing herself to use coping skills which are helping; no SI; much more self aware. Very much hoping for a program as she has remained sober and desperately wants to continue being sober. 02/02 Though still with some depression, Patient reports improved mood; however still very anxious; discussed medication management and patient agreed to go up on Effexor to see if they can help with anxiety and depression. Patient still focusing on using coping skills instead of resorting to PRNs. 02/03 Continue current regime and plan of care. 02/04 Change klonopin to bid prn with a timing change of q 6 hours vs q 12 hours. Plan: CV Q 15 minute checks Increase Effexor XR to 150 mg daily for continued anxiety Continue Latuda to 120 mg daily at dinnertime Patient wants to get back to [facility] but must reapply Dispo planning with social Work Patient educated on: medication risk/benefits and therapeutic strategies Informed Consent: understands Reason for continued inpatient stay Substantial Risk for: rapid decompensation Time Spent With Patient Time: Total time managing care of this patient today ____ minutes.
[2023-02-04 15:50] VITALS: BP 125/58; PULSE 85; TEMP 36.8; O2SAT 97
[2023-02-04] MEDS: Throat Lozenge, Medicated LOZENGE 1 LOZENGE MUCOUS MEM (15:55)
[2023-02-04] MEDS: hydrOXYzine HCL 25 MG TABLET PO (15:55)
[2023-02-04] MEDS: Lurasidone HCl 40 MG TABLET 120 MG PO (15:57)
[2023-02-04] MEDS: chlorproMAZINE HCl 25 MG TABLET 50 MG PO (19:50)
[2023-02-04] MEDS: cloNIDine HCL 0.2 MG TABLET 0.4 MG PO (19:52)
[2023-02-05] MEDS: Omeprazole 20 MG CAPSULE.DR PO ×2 (06:53→16:09)
[2023-02-05] MEDS: methADONE HCl 20 MG/2 ML ORAL.CONC 190 MG PO (08:56)
[2023-02-05] MEDS: hydroCHLOROthiazide 12.5 MG TABLET PO (08:57)
[2023-02-05] MEDS: Venlafaxine HCl ER 150 MG CAP.ER.24H PO (08:57)
[2023-02-05] MEDS: Propranolol HCL 10 MG TABLET PO ×2 (08:57→19:37)
[2023-02-05] MEDS: Dextroamphetamine/Amphetamine XR 10 MG CAP.ER.24H 40 MG PO (08:57)
[2023-02-05] MEDS: buPROPion HCl XL 300 MG TAB.ER.24H PO (08:58)
[2023-02-05] MEDS: Gabapentin 600 MG TABLET PO ×3 (08:58→19:36)
[2023-02-05] MEDS: oxyBUTYnin chloride 5 MG TABLET PO ×3 (08:58→19:37)
[2023-02-05] MEDS: metFORMIN HCl 500 MG TABLET PO ×2 (08:58→16:09)
[2023-02-05] MEDS: Multivitamin TABLET 1 TAB PO (08:58)
[2023-02-05] MEDS: buPROPion HCl XL 150 MG TAB.ER.24H PO (08:58)
[2023-02-05 09:06] VITALS: BP 107/57; PULSE 73; TEMP 36.6; O2SAT 97
--- NOTE | 2023-02-05 09:10 | HO.PSYCHPN ---
Subjective Subjective Date of Service: 02/05/23 Reason For Visit: SI Interim History: Met with patient; discussed with team; reviewed notes Patient reports she is doing overall pretty good. She still quite anxious but says she has been utilizing coping skills which have proved effective. She is having nightmares again, which had resolved over the past year but returned since Latuda accidentally discontinued. She says she does not want any further medication and is anticipating that they will again resolve with more time. Patient wants to remain with current B[facility] and clinic and asked for help getting in touch with them since she has not been able to. Patient very much wants to get into a program and has been calling places on her. She remains in good behavioral and impulse control and engaged in treatment. Mental Status Exam Mental Status Exam Narrative: Pt is alert and oriented; behavior is cooperative and calm; dressed in casual attire, good hygiene; mood is described as good and affect brighter, more calm eye contact appropriate; Speech is normal rate, volume and prosody and not pressured; no psychomotor agitation/retardation present; thought process is organized; Thought content is on tx, aftercare and wanting to be with her daughter; otherwise pertinent to relevant topics and without any delusional content, paranoid ideations or grandiosity; denies HI/VH/AH. Pt denies SI/HI. Patients insight and judgment much improved, fair. Diagnostics Vital Signs (24Hr): Vital Signs - 24 hr 02/04/23 15:50 02/05/23 09:06 Temperature 98.2 F 97.8 F Pulse Rate 85 73 Blood Pressure 125/58 L 107/57 L Pulse Oximetry 97 97 Oxygen Delivery Method Room Air Room Air BMI result Body Mass Index 49.1 Labs 01/23/23 18:28 01/30/23 09:03 Labs: Laboratory Results - last 48 hr 02/03/23 12:15 COVID-19 (AJ) Negative COVID-19 Clin Com See Note Medications Medications Current Medications Acetaminophen (Acetaminophen 325 Mg Tablet) 650 mg PO Q6H PRN PRN Reason: Headache/Pain Mild Scale (1-3) Last Admin: 02/04/23 04:01 Dose: 650 mg Al Hydroxide/Mg Hydroxide (Magnesium Hydrox/Alum Hydrox 30 Ml Oral.Susp) 30 ml PO Q6H PRN PRN Reason: Heartburn/Nausea Amphetamine/Dextroamphetamine (Dextroamphetamine/Amphetamine Xr 10 Mg Cap.Er.24h) 40 mg PO DAILY AMELIE Last Admin: 02/05/23 08:57 Dose: 40 mg Benzocaine (Throat Lozenge, Medicated Lozenge) 1 lozenge MUCOUS MEM Q2H PRN PRN Reason: Sore Throat Last Admin: 02/04/23 15:55 Dose: 1 lozenge Bupropion HCl (Bupropion Hcl Xl 150 Mg Tab.Er.24h) 150 mg PO DAILY AMELIE Last Admin: 02/05/23 08:58 Dose: 150 mg Bupropion HCl (Bupropion Hcl Xl 300 Mg Tab.Er.24h) 300 mg PO DAILY AMELIE Last Admin: 02/05/23 08:58 Dose: 300 mg Chlorpromazine HCl (Chlorpromazine Hcl 25 Mg Tablet) 50 mg PO BEDTIME AMELIE Last Admin: 02/04/23 19:50 Dose: 50 mg Chlorpromazine HCl (Chlorpromazine Hcl 25 Mg Tablet) 25 mg PO TID PRN PRN Reason: anxiety Last Admin: 02/04/23 13:14 Dose: 25 mg Clonazepam (Clonazepam 1 Mg Tablet) 1 mg PO Q6H PRN PRN Reason: anxiety Last Admin: 02/04/23 19:52 Dose: 1 mg Clonidine HCl (Clonidine Hcl 0.2 Mg Tablet) 0.4 mg PO BEDTIME AMELIE; Protocol Last Admin: 02/04/23 19:52 Dose: 0.4 mg Clonidine HCl (Clonidine Hcl 0.2 Mg Tablet) 0.2 mg PO BID PRN; Protocol PRN Reason: anxiety Last Admin: 02/04/23 15:55 Dose: 0.2 mg Docusate Sodium (Docusate Sodium 100 Mg Capsule) 100 mg PO BID PRN PRN Reason: constipation Last Admin: 02/01/23 19:51 Dose: 100 mg Gabapentin (Gabapentin 600 Mg Tablet) 600 mg PO TID AMELIE Last Admin: 02/05/23 08:58 Dose: 600 mg Hydrochlorothiazide (Hydrochlorothiazide 12.5 Mg Tablet) 12.5 mg PO DAILY AMELIE; Protocol Last Admin: 02/05/23 08:57 Dose: 12.5 mg Hydroxyzine HCl (Hydroxyzine Hcl 25 Mg Tablet) 25 mg PO Q6H PRN PRN Reason: Anxiety Last Admin: 02/04/23 15:55 Dose: 25 mg Ibuprofen (Ibuprofen 600 Mg Tablet) 600 mg PO BID PRN PRN Reason: Pain (Scale Score 1-3) Last Admin: 02/03/23 13:51 Dose: 600 mg Lurasidone HCl (Lurasidone Hcl 40 Mg Tablet) 120 mg PO DAILY@1800 [facility] Last Admin: 02/04/23 15:57 Dose: 120 mg Magnesium Hydroxide (Milk Of Magnesia 30 Ml Oral.Susp) 30 ml PO DAILY PRN PRN Reason: Constipation Metformin HCl (Metformin Hcl 500 Mg Tablet) 500 mg PO BIDWM [facility] Last Admin: 02/05/23 08:58 Dose: 500 mg Methadone HCl (Methadone Hcl 20 Mg/2 Ml Oral.Conc) 190 mg PO DAILY [facility] Last Admin: 02/05/23 08:56 Dose: 190 mg Multivitamins/Vitamin C (Multivitamin Tablet) 1 tab PO DAILY [facility] Last Admin: 02/05/23 08:58 Dose: 1 tab Nicotine (Nicotine 21 Mg Patch.Td24) 21 mg TRANSDERMA DAILY PRN PRN Reason: smoking cessation Last Admin: 02/01/23 12:40 Dose: 21 mg Nicotine Polacrilex (Nicotine Polacrilex 2 Mg Gum) 4 mg BUCCAL Q2H PRN PRN Reason: Nicotine Cravings Omeprazole (Omeprazole 20 Mg Capsule.Dr) 20 mg PO BID@0630,1630 [facility] Last Admin: 02/05/23 06:53 Dose: 20 mg Oxybutynin Chloride (Oxybutynin Chloride 5 Mg Tablet) 5 mg PO TID [facility] Last Admin: 02/05/23 08:58 Dose: 5 mg Propranolol HCl (Propranolol Hcl 10 Mg Tablet) 10 mg PO BID [facility]; Protocol Last Admin: 02/05/23 08:57 Dose: 10 mg Venlafaxine HCl (Venlafaxine Hcl Er 150 Mg Cap.Er.24h) 150 mg PO DAILY [facility] Last Admin: 02/05/23 08:57 Dose: 150 mg Allergies Allergies Allergy/AdvReac Type Severity Reaction Status Date / Time meperidine [From Demerol] Allergy Mild Unknown Verified 04/06/22 09:27 Penicillins Allergy Mild Unknown Verified 04/06/22 09:27 propoxyphene Allergy Mild Unknown Verified 04/06/22 09:27 [From Darvocet-N 50] Sulfa (Sulfonamide Allergy Mild Hives Verified 04/06/22 09:27 Antibiotics) penicillin V Allergy Unknown Swelling Verified 04/06/22 09:27 Assessment & Plan Assessment & Plan (1) Bipolar 1 disorder, depressed, severe: Status: Acute Code(s): F31.4 - Bipolar disorder, current episode depressed, severe, without psychotic features (2) Opioid use disorder, moderate, in early remission: Status: Acute Code(s): F11.21 - Opioid dependence, in remission (3) PTSD (post-traumatic stress disorder): Status: Acute Code(s): F43.10 - Post-traumatic stress disorder, unspecified (4) Diabetes: Status: Acute Code(s): E11.9 - Type 2 diabetes mellitus without complications Plan Patient is a 32-year-old female with history of bipolar disorder, PTSD, diabetes, opioid use disorder in sustained remission on methadone, who presents for worsening depression following unintended discontinuation of Latuda. Patient reports that she was doing quite well after her last discharge, April 2022 and has not been to the hospital since. [facility] at [facility] which she found very helpful, was seeing her daughter, taking less p.r.n. clonazepam, sober and was doing well up until about a month ago when her insurance stopped covering Latuda; provider reapplied for prior Auth however took considerable time. Since then her mood started to decline and she became really depressed, with low energy, diminished interest, poor concentration, sleep disturbance, appetite disturbance and found it difficult to fulfill obligations at the program. Patient flipped into a mixed-manic episode, talking fast, no sleep, agitated, out at night smoking past curfew, inefficient and impulsively left the program. Patient then became depressed again. She eventually was able to restart Latuda for the past several days however she remains very depressed and started feeling suicidal so self presented to not to hurt herself. Denies any relapse, drug or alcohol use though reports she got close to relapsing with opioids. Denies AVH. Patient remains depressed; wants to get back on former home dose Hospital course: 01/25 patient reports continued depression, continued SI; patient understands that she just got back to her regular dose of Latuda and recovery will take more time; continue current treatment plan 01/26 remains quite depressed with SI; isolating; agrees to push herself into behavioral activation; patient is now back on medication regimen that has helped in the past as and will likely take more time for depression to be again abating; continue current med regimen at this time 01/29 still quite depressed; continue current tx plan 01/30 little less depressed; using coping skill; getting more optimistic 01/31:Patient reports feeling anxious and depressed ; pt stated, I don't know why I feel this way. I just wake up like this . Pt reports suicidal ideation with plan to overdose on heroin; pt stated, I would do it so I wouldn't have to deal with my family or them deal with me. I cause people issues for people . denies HI/VH/AH. Pt c/o sore throat, will order Cepacol lozenges. 02/01 patient doing better, pushing herself to use coping skills which are helping; no SI; much more self aware. Very much hoping for a program as she has remained sober and desperately wants to continue being sober. 02/02 Though still with some depression, Patient reports improved mood; however still very anxious; discussed medication management and patient agreed to go up on Effexor to see if they can help with anxiety and depression. Patient still focusing on using coping skills instead of resorting to PRNs. 02/03 Continue current regime and plan of care. 02/04 Change klonopin to bid prn with a timing change of q 6 hours vs q 12 hours. 02/05 Patient reports she is doing overall pretty good. She still quite anxious but says she has been utilizing coping skills which have proved effective. She is having nightmares again, which had resolved over the past year but returned since Latuda accidentally discontinued. She says she does not want any further medication and is anticipating that they will again resolve with more time. Patient wants to remain with current [facility] and clinic and asked for help getting in touch with them since she has not been able to. Patient very much wants to get into a program and has been calling places on her. She remains in good behavioral and impulse control and engaged in treatment. -over the past year, patient has remained sober and doing well, engaged in treatment; to no fault of her own, Latuda was accidentally not prescribed and patient was without it for a month, during which time she emotionally decompensated; despite this she remained sober. For patient, there is a lot of pressure placed on being in a program/having housing which is a prerequisite for visitation with her daughter, with whom she desperately wants remain connected. Patient has worked hard to stay stable and employ coping skills and remains invested in her treatment and sobriety. It is promotion writer's opinion that it is in her best interest to remain on the unit further to continue helping with disposition planning. Plan: CV Q 15 minute checks Continue Effexor XR to 150 mg daily for continued anxiety Continue Latuda to 120 mg daily at dinnertime Dispo planning with social Work Patient educated on: diagnosis, medication risk/benefits, substance abuse and therapeutic strategies Informed Consent: understands Reason for continued inpatient stay Substantial Risk for: stable for discharge Time Spent With Patient Time: Total time managing care of this patient today ____ minutes.
[2023-02-05] MEDS: Ibuprofen 600 MG TABLET PO ×2 (09:16→16:08)
[2023-02-05] MEDS: Throat Lozenge, Medicated LOZENGE 1 LOZENGE MUCOUS MEM (11:03)
[2023-02-05 11:41] LABS: COVID-19 Test Negative (Negative); IDNOW Serial# BCCEAD1C
[2023-02-05] MEDS: clonazePAM 1 MG TABLET PO ×2 (13:49→19:36)
[2023-02-05] MEDS: cloNIDine HCL 0.2 MG TABLET PO (13:50)
[2023-02-05] MEDS: Acetaminophen 325 MG TABLET 650 MG PO ×2 (13:50→19:37)
[2023-02-05] MEDS: Lurasidone HCl 40 MG TABLET 120 MG PO (16:09)
[2023-02-05 18:00] VITALS: BP 134/76; PULSE 85; RESP 17; TEMP 36.4; O2SAT 97
[2023-02-05] MEDS: cloNIDine HCL 0.2 MG TABLET 0.4 MG PO (19:35)
[2023-02-05] MEDS: chlorproMAZINE HCl 25 MG TABLET 50 MG PO (19:37)
[2023-02-06] MEDS: chlorproMAZINE HCl 25 MG TABLET PO ×2 (01:20→18:38)
[2023-02-06] MEDS: Throat Lozenge, Medicated LOZENGE 1 LOZENGE MUCOUS MEM (01:20)
[2023-02-06 06:00] VITALS: BP 94/62; PULSE 75; RESP 16; TEMP 36.5; O2SAT 97
[2023-02-06] MEDS: Omeprazole 20 MG CAPSULE.DR PO ×2 (06:22→16:48)
[2023-02-06] MEDS: methADONE HCl 20 MG/2 ML ORAL.CONC 190 MG PO (09:16)
[2023-02-06] MEDS: Multivitamin TABLET 1 TAB PO (09:17)
[2023-02-06] MEDS: hydroCHLOROthiazide 12.5 MG TABLET PO (09:17)
[2023-02-06] MEDS: Venlafaxine HCl ER 150 MG CAP.ER.24H PO (09:17)
[2023-02-06] MEDS: Gabapentin 600 MG TABLET PO ×3 (09:17→20:22)
[2023-02-06] MEDS: buPROPion HCl XL 150 MG TAB.ER.24H PO (09:17)
[2023-02-06] MEDS: buPROPion HCl XL 300 MG TAB.ER.24H PO (09:17)
[2023-02-06] MEDS: oxyBUTYnin chloride 5 MG TABLET PO ×3 (09:17→20:22)
[2023-02-06] MEDS: Propranolol HCL 10 MG TABLET PO ×2 (09:17→20:22)
[2023-02-06] MEDS: metFORMIN HCl 500 MG TABLET PO ×2 (09:17→16:48)
[2023-02-06] MEDS: Dextroamphetamine/Amphetamine XR 10 MG CAP.ER.24H 40 MG PO (09:17)
[2023-02-06] MEDS: cloNIDine HCL 0.2 MG TABLET PO ×2 (09:18→14:47)
[2023-02-06] MEDS: Ibuprofen 600 MG TABLET PO (09:38)
[2023-02-06 12:17] LABS: Creatinine Clr Calc Pharmacy 122.4; Estimated Glomerular Filt Rate > 60
[2023-02-06] MEDS: Acetaminophen 325 MG TABLET 650 MG PO (14:46)
[2023-02-06] MEDS: clonazePAM 1 MG TABLET PO ×2 (14:47→20:22)
--- NOTE | 2023-02-06 17:08 | P.PNPSI_ITS ---
Subjective Subjective Date of Service: 02/06/23 Reason For Visit: SI Interim History: met with patient; discussed with team pt reports doing well; using coping tools and proactively working to get into program. remains engaged in treatment and focused on sobriety and stability. Mental Status Exam Mental Status Exam Narrative: Pt is alert and oriented; behavior is cooperative and calm; dressed in casual attire, good hygiene; mood is described as good and affect brighter, more calm eye contact appropriate; Speech is normal rate, volume and prosody and not pressured; no psychomotor agitation/retardation present; thought process is organized; Thought content is on tx, aftercare and wanting to be with her daughter; otherwise pertinent to relevant topics and without any delusional content, paranoid ideations or grandiosity; denies HI/VH/AH. Pt denies SI/HI. Patients insight and judgment fair. Diagnostics Vital Signs (24Hr): Vital Signs - 24 hr 02/05/23 18:00 02/06/23 06:00 Temperature 97.6 F 97.7 F Pulse Rate 85 75 Respiratory Rate 17 16 Blood Pressure 134/76 94/62 Pulse Oximetry 97 97 Oxygen Delivery Method Room Air Room Air BMI result Body Mass Index 49.1 Labs 01/23/23 18:28 02/06/23 10:58 Labs: Laboratory Results - last 48 hr 02/05/23 02/06/23 11:00 10:58 Creatinine 0.79 Estim Creat Clear Calc 122.4 Estimated GFR > 60 COVID-19 (AJ) Negative COVID-19 Clin Com See Note Medications Medications Current Medications Acetaminophen (Acetaminophen 325 Mg Tablet) 650 mg PO Q6H PRN PRN Reason: Headache/Pain Mild Scale (1-3) Last Admin: 02/06/23 14:46 Dose: 650 mg Al Hydroxide/Mg Hydroxide (Magnesium Hydrox/Alum Hydrox 30 Ml Oral.Susp) 30 ml PO Q6H PRN PRN Reason: Heartburn/Nausea Amphetamine/Dextroamphetamine (Dextroamphetamine/Amphetamine Xr 10 Mg Cap.Er.24h) 40 mg PO DAILY AMELIE Last Admin: 02/06/23 09:17 Dose: 40 mg Benzocaine (Throat Lozenge, Medicated Lozenge) 1 lozenge MUCOUS MEM Q2H PRN PRN Reason: Sore Throat Last Admin: 02/06/23 01:20 Dose: 1 lozenge Bupropion HCl (Bupropion Hcl Xl 150 Mg Tab.Er.24h) 150 mg PO DAILY AMELIE Last Admin: 02/06/23 09:17 Dose: 150 mg Bupropion HCl (Bupropion Hcl Xl 300 Mg Tab.Er.24h) 300 mg PO DAILY AMELIE Last Admin: 02/06/23 09:17 Dose: 300 mg Chlorpromazine HCl (Chlorpromazine Hcl 25 Mg Tablet) 50 mg PO BEDTIME AMELIE Last Admin: 02/05/23 19:37 Dose: 50 mg Chlorpromazine HCl (Chlorpromazine Hcl 25 Mg Tablet) 25 mg PO TID PRN PRN Reason: anxiety Last Admin: 02/06/23 01:20 Dose: 25 mg Clonazepam (Clonazepam 1 Mg Tablet) 1 mg PO Q6H PRN PRN Reason: anxiety Last Admin: 02/06/23 14:47 Dose: 1 mg Clonidine HCl (Clonidine Hcl 0.2 Mg Tablet) 0.4 mg PO BEDTIME AMELIE; Protocol Last Admin: 02/05/23 19:35 Dose: 0.4 mg Clonidine HCl (Clonidine Hcl 0.2 Mg Tablet) 0.2 mg PO BID PRN; Protocol PRN Reason: anxiety Last Admin: 02/06/23 14:47 Dose: 0.2 mg Docusate Sodium (Docusate Sodium 100 Mg Capsule) 100 mg PO BID PRN PRN Reason: constipation Last Admin: 02/01/23 19:51 Dose: 100 mg Gabapentin (Gabapentin 600 Mg Tablet) 600 mg PO TID AMELIE Last Admin: 02/06/23 14:47 Dose: 600 mg Hydrochlorothiazide (Hydrochlorothiazide 12.5 Mg Tablet) 12.5 mg PO DAILY AMELIE; Protocol Last Admin: 02/06/23 09:17 Dose: 12.5 mg Hydroxyzine HCl (Hydroxyzine Hcl 25 Mg Tablet) 25 mg PO Q6H PRN PRN Reason: Anxiety Last Admin: 02/04/23 15:55 Dose: 25 mg Ibuprofen (Ibuprofen 600 Mg Tablet) 600 mg PO BID PRN PRN Reason: Pain (Scale Score 1-3) Last Admin: 02/06/23 09:38 Dose: 600 mg Lurasidone HCl (Lurasidone Hcl 40 Mg Tablet) 120 mg PO DAILY@1800 AMELIE Last Admin: 02/05/23 16:09 Dose: 120 mg Magnesium Hydroxide (Milk Of Magnesia 30 Ml Oral.Susp) 30 ml PO DAILY PRN PRN Reason: Constipation Metformin HCl (Metformin Hcl 500 Mg Tablet) 500 mg PO BIDWM [facility] Last Admin: 02/06/23 16:48 Dose: 500 mg Methadone HCl (Methadone Hcl 20 Mg/2 Ml Oral.Conc) 190 mg PO DAILY [facility] Last Admin: 02/06/23 09:16 Dose: 190 mg Multivitamins/Vitamin C (Multivitamin Tablet) 1 tab PO DAILY [facility] Last Admin: 02/06/23 09:17 Dose: 1 tab Nicotine (Nicotine 21 Mg Patch.Td24) 21 mg TRANSDERMA DAILY PRN PRN Reason: smoking cessation Last Admin: 02/01/23 12:40 Dose: 21 mg Nicotine Polacrilex (Nicotine Polacrilex 2 Mg Gum) 4 mg BUCCAL Q2H PRN PRN Reason: Nicotine Cravings Omeprazole (Omeprazole 20 Mg Capsule.Dr) 20 mg PO BID@0630,1630 [facility] Last Admin: 02/06/23 16:48 Dose: 20 mg Oxybutynin Chloride (Oxybutynin Chloride 5 Mg Tablet) 5 mg PO TID [facility] Last Admin: 02/06/23 14:47 Dose: 5 mg Propranolol HCl (Propranolol Hcl 10 Mg Tablet) 10 mg PO BID [facility]; Protocol Last Admin: 02/06/23 09:17 Dose: 10 mg Venlafaxine HCl (Venlafaxine Hcl Er 150 Mg Cap.Er.24h) 150 mg PO DAILY [facility] Last Admin: 02/06/23 09:17 Dose: 150 mg Allergies Allergies Allergy/AdvReac Type Severity Reaction Status Date / Time meperidine [From Demerol] Allergy Mild Unknown Verified 04/06/22 09:27 Penicillins Allergy Mild Unknown Verified 04/06/22 09:27 propoxyphene Allergy Mild Unknown Verified 04/06/22 09:27 [From Darvocet-N 50] Sulfa (Sulfonamide Allergy Mild Hives Verified 04/06/22 09:27 Antibiotics) penicillin V Allergy Unknown Swelling Verified 04/06/22 09:27 Assessment & Plan Assessment & Plan (1) Bipolar 1 disorder, depressed, severe: Status: Acute Code(s): F31.4 - Bipolar disorder, current episode depressed, severe, without psychotic features (2) Opioid use disorder, moderate, in early remission: Status: Acute Code(s): F11.21 - Opioid dependence, in remission (3) PTSD (post-traumatic stress disorder): Status: Acute Code(s): F43.10 - Post-traumatic stress disorder, unspecified (4) Diabetes: Status: Acute Code(s): E11.9 - Type 2 diabetes mellitus without complications Plan Patient is a 32-year-old female with history of bipolar disorder, PTSD, diabetes, opioid use disorder in sustained remission on methadone, who presents for worsening depression following unintended discontinuation of Latuda. Patient reports that she was doing quite well after her last discharge, April 2022 and has not been to the hospital since. [facility] which she found very helpful, was seeing her daughter, taking less p.r.n. clonazepam, sober and was doing well up until about a month ago when her insurance stopped covering Latuda; provider reapplied for prior Auth however took considerable time. Since then her mood started to decline and she became really depressed, with low energy, diminished interest, poor concentration, sleep disturbance, appetite disturbance and found it difficult to fulfill obligations at the program. Patient flipped into a mixed-manic episode, talking fast, no sleep, agitated, out at night smoking past curfew, inefficient and impulsively left the program. Patient then became depressed again. She eventually was able to restart Latuda for the past several days however she remains very depressed and started feeling suicidal so self presented to not to hurt herself. Denies any relapse, drug or alcohol use though reports she got close to relapsing with opioids. Denies AVH. Patient remains depressed; wants to get back on former home dose Hospital course: 01/25 patient reports continued depression, continued SI; patient understands that she just got back to her regular dose of Latuda and recovery will take more time; continue current treatment plan 01/26 remains quite depressed with SI; isolating; agrees to push herself into behavioral activation; patient is now back on medication regimen that has helped in the past as and will likely take more time for depression to be again abating; continue current med regimen at this time 01/29 still quite depressed; continue current tx plan 01/30 little less depressed; using coping skill; getting more optimistic 01/31:Patient reports feeling anxious and depressed ; pt stated, I don't know why I feel this way. I just wake up like this . Pt reports suicidal ideation with plan to overdose on heroin; pt stated, I would do it so I wouldn't have to deal with my family or them deal with me. I cause people issues for people . denies HI/VH/AH. Pt c/o sore throat, will order Cepacol lozenges. 02/01 patient doing better, pushing herself to use coping skills which are helping; no SI; much more self aware. Very much hoping for a program as she has remained sober and desperately wants to continue being sober. 02/02 Though still with some depression, Patient reports improved mood; however still very anxious; discussed medication management and patient agreed to go up on Effexor to see if they can help with anxiety and depression. Patient still focusing on using coping skills instead of resorting to PRNs. 02/03 Continue current regime and plan of care. 02/04 Change klonopin to bid prn with a timing change of q 6 hours vs q 12 hours. 02/05 Patient reports she is doing overall pretty good. She still quite anxious but says she has been utilizing coping skills which have proved effective. She is having nightmares again, which had resolved over the past year but returned since Latuda accidentally discontinued. She says she does not want any further medication and is anticipating that they will again resolve with more time. Patient wants to remain with current BPH and clinic and asked for help getting in touch with them since she has not been able to. Patient very much wants to get into a program and has been calling places on her. She remains in good behavioral and impulse control and engaged in treatment. -over the past year, patient has remained sober and doing well, engaged in treatment; to no fault of her own, Latuda was accidentally not prescribed and patient was without it for a month, during which time she emotionally decompensated; despite this she remained sober. For patient, there is a lot of pressure placed on being in a program/having housing which is a prerequisite for visitation with her daughter, with whom she desperately wants remain connected. Patient has worked hard to stay stable and employ coping skills and remains invested in her treatment and sobriety. It is publicity writer's opinion that it is in her best interest to remain on the unit further to continue helping with disposition planning. Plan: CV Q 15 minute checks Continue Effexor XR to 150 mg daily for continued anxiety Continue Latuda to 120 mg daily at dinnertime Dispo planning with social Work Patient educated on: diagnosis, substance abuse and therapeutic strategies Informed Consent: understands Reason for continued inpatient stay Substantial Risk for: stable for discharge Time Spent With Patient Time: Total time managing care of this patient today ____ minutes.
[2023-02-06 18:00] VITALS: BP 116/60; PULSE 77; TEMP 36.4; O2SAT 96
[2023-02-06] MEDS: hydrOXYzine HCL 25 MG TABLET PO (18:38)
[2023-02-06] MEDS: Lurasidone HCl 40 MG TABLET 120 MG PO (19:09)
[2023-02-06] MEDS: chlorproMAZINE HCl 25 MG TABLET 50 MG PO (20:22)
[2023-02-06] MEDS: cloNIDine HCL 0.2 MG TABLET 0.4 MG PO (20:22)
[2023-02-07] MEDS: Omeprazole 20 MG CAPSULE.DR PO ×2 (06:01→17:30)
[2023-02-07 08:00] VITALS: BP 112/63; PULSE 74; RESP 16; TEMP 36.6; O2SAT 93
[2023-02-07] MEDS: methADONE HCl 20 MG/2 ML ORAL.CONC 190 MG PO (08:46)
[2023-02-07] MEDS: Propranolol HCL 10 MG TABLET PO ×2 (08:47→20:07)
[2023-02-07] MEDS: Gabapentin 600 MG TABLET PO ×3 (08:47→20:08)
[2023-02-07] MEDS: Multivitamin TABLET 1 TAB PO (08:47)
[2023-02-07] MEDS: oxyBUTYnin chloride 5 MG TABLET PO ×3 (08:47→20:08)
[2023-02-07] MEDS: Dextroamphetamine/Amphetamine XR 10 MG CAP.ER.24H 40 MG PO (08:47)
[2023-02-07] MEDS: Venlafaxine HCl ER 150 MG CAP.ER.24H PO (08:47)
[2023-02-07] MEDS: buPROPion HCl XL 300 MG TAB.ER.24H PO (08:47)
[2023-02-07] MEDS: hydroCHLOROthiazide 12.5 MG TABLET PO (08:47)
[2023-02-07] MEDS: metFORMIN HCl 500 MG TABLET PO ×2 (08:47→17:31)
[2023-02-07] MEDS: buPROPion HCl XL 150 MG TAB.ER.24H PO (08:47)
[2023-02-07] MEDS: cloNIDine HCL 0.2 MG TABLET PO ×2 (08:48→17:30)
--- NOTE | 2023-02-07 09:39 | HO.PSYCHPN ---
Subjective Subjective Date of Service: 02/07/23 Reason For Visit: SI Subjective Notes: Conditional Voluntary Interim History: Reviewed with . Patient reports feeling okay today. Pt stated, my depression is ok but I'm anxious. I don't know what I'm anxious about . Pt reports she is hoping to get into [facility] . denies SI/HI/VH/AH. Medication Compliance: Yes Review of Systems Constitutional: Reports as per HPI Eyes: Reports as per HPI Reports as per HPI Cardiovascular: Reports as per HPI Respiratory: Reports as per HPI Gastrointestinal: Reports as per HPI Genitourinary: Reports as per HPI Musculoskeletal: Reports as per HPI Skin/Breast: Reports as per HPI Reports as per HPI Psychiatric: Reports as per HPI Endocrine: Reports as per HPI Hematologic/Lymphatic: Reports as per HPI Allergic/Immunologic: Reports as per HPI Mental Status Exam Mental Status Exam Narrative: Pt is alert and oriented; behavior is cooperative and calm; dressed in casual attire; mood is described as okay ; eye contact appropriate; Speech is normal rate, volume and prosody and not pressured; no psychomotor agitation/retardation present; thought process is organized and goal directed; Thought content is on tx; otherwise pertinent to relevant topics and without any delusional content, paranoid ideations or grandiosity; denies SI/HI. There is no evidence of perceptual disturbance. Diagnostics Vital Signs (24Hr): Vital Signs - 24 hr 02/06/23 18:00 02/07/23 08:00 Temperature 97.5 F 97.8 F Pulse Rate 77 74 Respiratory Rate 16 Blood Pressure 116/60 112/63 Pulse Oximetry 96 93 Oxygen Delivery Method Room Air Room Air BMI result Body Mass Index 49.1 Labs 01/23/23 18:28 02/06/23 10:58 Labs: Laboratory Results - last 48 hr 02/05/23 02/06/23 11:00 10:58 Creatinine 0.79 Estim Creat Clear Calc 122.4 Estimated GFR > 60 COVID-19 (AJ) Negative COVID-19 Clin Com See Note Medications Medications Current Medications Acetaminophen (Acetaminophen 325 Mg Tablet) 650 mg PO Q6H PRN PRN Reason: Headache/Pain Mild Scale (1-3) Last Admin: 02/06/23 14:46 Dose: 650 mg Al Hydroxide/Mg Hydroxide (Magnesium Hydrox/Alum Hydrox 30 Ml Oral.Susp) 30 ml PO Q6H PRN PRN Reason: Heartburn/Nausea Amphetamine/Dextroamphetamine (Dextroamphetamine/Amphetamine Xr 10 Mg Cap.Er.24h) 40 mg PO DAILY AMELIE Last Admin: 02/07/23 08:47 Dose: 40 mg Benzocaine (Throat Lozenge, Medicated Lozenge) 1 lozenge MUCOUS MEM Q2H PRN PRN Reason: Sore Throat Last Admin: 02/06/23 01:20 Dose: 1 lozenge Bupropion HCl (Bupropion Hcl Xl 150 Mg Tab.Er.24h) 150 mg PO DAILY AMELIE Last Admin: 02/07/23 08:47 Dose: 150 mg Bupropion HCl (Bupropion Hcl Xl 300 Mg Tab.Er.24h) 300 mg PO DAILY AMELIE Last Admin: 02/07/23 08:47 Dose: 300 mg Chlorpromazine HCl (Chlorpromazine Hcl 25 Mg Tablet) 50 mg PO BEDTIME AMELIE Last Admin: 02/06/23 20:22 Dose: 50 mg Chlorpromazine HCl (Chlorpromazine Hcl 25 Mg Tablet) 25 mg PO TID PRN PRN Reason: anxiety Last Admin: 02/06/23 18:38 Dose: 25 mg Clonazepam (Clonazepam 1 Mg Tablet) 1 mg PO Q6H PRN PRN Reason: anxiety Last Admin: 02/06/23 20:22 Dose: 1 mg Clonidine HCl (Clonidine Hcl 0.2 Mg Tablet) 0.4 mg PO BEDTIME AMELIE; Protocol Last Admin: 02/06/23 20:22 Dose: 0.4 mg Clonidine HCl (Clonidine Hcl 0.2 Mg Tablet) 0.2 mg PO BID PRN; Protocol PRN Reason: anxiety Last Admin: 02/07/23 08:48 Dose: 0.2 mg Docusate Sodium (Docusate Sodium 100 Mg Capsule) 100 mg PO BID PRN PRN Reason: constipation Last Admin: 02/01/23 19:51 Dose: 100 mg Gabapentin (Gabapentin 600 Mg Tablet) 600 mg PO TID AMELIE Last Admin: 02/07/23 08:47 Dose: 600 mg Hydrochlorothiazide (Hydrochlorothiazide 12.5 Mg Tablet) 12.5 mg PO DAILY AMELIE; Protocol Last Admin: 02/07/23 08:47 Dose: 12.5 mg Hydroxyzine HCl (Hydroxyzine Hcl 25 Mg Tablet) 25 mg PO Q6H PRN PRN Reason: Anxiety Last Admin: 02/06/23 18:38 Dose: 25 mg Ibuprofen (Ibuprofen 600 Mg Tablet) 600 mg PO BID PRN PRN Reason: Pain (Scale Score 1-3) Last Admin: 02/06/23 09:38 Dose: 600 mg Lurasidone HCl (Lurasidone Hcl 40 Mg Tablet) 120 mg PO DAILY@1800 [facility] Last Admin: 02/06/23 19:09 Dose: 120 mg Magnesium Hydroxide (Milk Of Magnesia 30 Ml Oral.Susp) 30 ml PO DAILY PRN PRN Reason: Constipation Metformin HCl (Metformin Hcl 500 Mg Tablet) 500 mg PO BIDWM [facility] Last Admin: 02/07/23 08:47 Dose: 500 mg Methadone HCl (Methadone Hcl 20 Mg/2 Ml Oral.Conc) 190 mg PO DAILY [facility] Last Admin: 02/07/23 08:46 Dose: 190 mg Multivitamins/Vitamin C (Multivitamin Tablet) 1 tab PO DAILY [facility] Last Admin: 02/07/23 08:47 Dose: 1 tab Nicotine (Nicotine 21 Mg Patch.Td24) 21 mg TRANSDERMA DAILY PRN PRN Reason: smoking cessation Last Admin: 02/01/23 12:40 Dose: 21 mg Nicotine Polacrilex (Nicotine Polacrilex 2 Mg Gum) 4 mg BUCCAL Q2H PRN PRN Reason: Nicotine Cravings Omeprazole (Omeprazole 20 Mg Capsule.Dr) 20 mg PO BID@0630,1630 [facility] Last Admin: 02/07/23 06:01 Dose: 20 mg Oxybutynin Chloride (Oxybutynin Chloride 5 Mg Tablet) 5 mg PO TID [facility] Last Admin: 02/07/23 08:47 Dose: 5 mg Propranolol HCl (Propranolol Hcl 10 Mg Tablet) 10 mg PO BID [facility]; Protocol Last Admin: 02/07/23 08:47 Dose: 10 mg Venlafaxine HCl (Venlafaxine Hcl Er 150 Mg Cap.Er.24h) 150 mg PO DAILY [facility] Last Admin: 02/07/23 08:47 Dose: 150 mg Allergies Allergies Allergy/AdvReac Type Severity Reaction Status Date / Time meperidine [From Demerol] Allergy Mild Unknown Verified 04/06/22 09:27 Penicillins Allergy Mild Unknown Verified 04/06/22 09:27 propoxyphene Allergy Mild Unknown Verified 04/06/22 09:27 [From Darvocet-N 50] Sulfa (Sulfonamide Allergy Mild Hives Verified 04/06/22 09:27 Antibiotics) penicillin V Allergy Unknown Swelling Verified 04/06/22 09:27 Assessment & Plan Assessment & Plan (1) Bipolar 1 disorder, depressed, severe: Status: Acute Code(s): F31.4 - Bipolar disorder, current episode depressed, severe, without psychotic features (2) Opioid use disorder, moderate, in early remission: Status: Acute Code(s): F11.21 - Opioid dependence, in remission (3) PTSD (post-traumatic stress disorder): Status: Acute Code(s): F43.10 - Post-traumatic stress disorder, unspecified (4) Diabetes: Status: Acute Code(s): E11.9 - Type 2 diabetes mellitus without complications Plan Patient is a 32-year-old female with history of bipolar disorder, PTSD, diabetes, opioid use disorder in sustained remission on methadone, who presents for worsening depression following unintended discontinuation of Latuda. Patient reports that she was doing quite well after her last discharge, April 2022 and has not been to the hospital since. [facility] which she found very helpful, was seeing her daughter, taking less p.r.n. clonazepam, sober and was doing well up until about a month ago when her insurance stopped covering Latuda; provider reapplied for prior Auth however took considerable time. Since then her mood started to decline and she became really depressed, with low energy, diminished interest, poor concentration, sleep disturbance, appetite disturbance and found it difficult to fulfill obligations at the program. Patient flipped into a mixed-manic episode, talking fast, no sleep, agitated, out at night smoking past curfew, inefficient and impulsively left the program. Patient then became depressed again. She eventually was able to restart Latuda for the past several days however she remains very depressed and started feeling suicidal so self presented to not to hurt herself. Denies any relapse, drug or alcohol use though reports she got close to relapsing with opioids. Denies AVH. Patient remains depressed; wants to get back on former home dose Hospital course: 01/25 patient reports continued depression, continued SI; patient understands that she just got back to her regular dose of Latuda and recovery will take more time; continue current treatment plan 01/26 remains quite depressed with SI; isolating; agrees to push herself into behavioral activation; patient is now back on medication regimen that has helped in the past as and will likely take more time for depression to be again abating; continue current med regimen at this time 01/29 still quite depressed; continue current tx plan 01/30 little less depressed; using coping skill; getting more optimistic 01/31:Patient reports feeling anxious and depressed ; pt stated, I don't know why I feel this way. I just wake up like this . Pt reports suicidal ideation with plan to overdose on heroin; pt stated, I would do it so I wouldn't have to deal with my family or them deal with me. I cause people issues for people . denies HI/VH/AH. Pt c/o sore throat, will order Cepacol lozenges. 02/01 patient doing better, pushing herself to use coping skills which are helping; no SI; much more self aware. Very much hoping for a program as she has remained sober and desperately wants to continue being sober. 02/02 Though still with some depression, Patient reports improved mood; however still very anxious; discussed medication management and patient agreed to go up on Effexor to see if they can help with anxiety and depression. Patient still focusing on using coping skills instead of resorting to PRNs. 02/03 Continue current regime and plan of care. 02/04 Change klonopin to bid prn with a timing change of q 6 hours vs q 12 hours. 02/05 Patient reports she is doing overall pretty good. She still quite anxious but says she has been utilizing coping skills which have proved effective. She is having nightmares again, which had resolved over the past year but returned since Latuda accidentally discontinued. She says she does not want any further medication and is anticipating that they will again resolve with more time. Patient wants to remain with current [facility] and clinic and asked for help getting in touch with them since she has not been able to. Patient very much wants to get into a program and has been calling places on her. She remains in good behavioral and impulse control and engaged in treatment. -over the past year, patient has remained sober and doing well, engaged in treatment; to no fault of her own, Latuda was accidentally not prescribed and patient was without it for a month, during which time she emotionally decompensated; despite this she remained sober. For patient, there is a lot of pressure placed on being in a program/having housing which is a prerequisite for visitation with her daughter, with whom she desperately wants remain connected. Patient has worked hard to stay stable and employ coping skills and remains invested in her treatment and sobriety. It is law writer's opinion that it is in her best interest to remain on the unit further to continue helping with disposition planning. 02/07: Continue current tx plan. Plan: CV Q 15 minute checks Continue Effexor XR to 150 mg daily for continued anxiety Continue Latuda to 120 mg daily at dinnertime Dispo planning with social Work Patient educated on: diagnosis, medication risk/benefits and therapeutic strategies Informed Consent: understands Reason for continued inpatient stay Substantial Risk for: med/psych decompensation Time Spent With Patient Time: Total time managing care of this patient today _30__ minutes.
[2023-02-07] MEDS: clonazePAM 1 MG TABLET PO ×2 (14:11→20:08)
[2023-02-07] MEDS: chlorproMAZINE HCl 25 MG TABLET PO ×2 (14:13→17:31)
[2023-02-07] MEDS: Acetaminophen 325 MG TABLET 650 MG PO (14:14)
[2023-02-07 16:14] VITALS: BP 116/65; PULSE 79; TEMP 36.8; O2SAT 94
[2023-02-07] MEDS: Lurasidone HCl 40 MG TABLET 120 MG PO (17:33)
[2023-02-07] MEDS: chlorproMAZINE HCl 25 MG TABLET 50 MG PO (20:07)
[2023-02-07] MEDS: hydrOXYzine HCL 25 MG TABLET PO (20:08)
[2023-02-07] MEDS: cloNIDine HCL 0.2 MG TABLET 0.4 MG PO (20:08)
[2023-02-08] MEDS: Omeprazole 20 MG CAPSULE.DR PO ×2 (05:33→17:06)
[2023-02-08 08:30] VITALS: BP 105/57; PULSE 74; RESP 16; TEMP 36.5; O2SAT 94
[2023-02-08] MEDS: oxyBUTYnin chloride 5 MG TABLET PO ×3 (08:36→20:28)
[2023-02-08] MEDS: Multivitamin TABLET 1 TAB PO (08:36)
[2023-02-08] MEDS: buPROPion HCl XL 150 MG TAB.ER.24H PO (08:36)
[2023-02-08] MEDS: hydroCHLOROthiazide 12.5 MG TABLET PO (08:36)
[2023-02-08] MEDS: Venlafaxine HCl ER 150 MG CAP.ER.24H PO (08:36)
[2023-02-08] MEDS: metFORMIN HCl 500 MG TABLET PO ×2 (08:36→17:06)
[2023-02-08] MEDS: Dextroamphetamine/Amphetamine XR 10 MG CAP.ER.24H 40 MG PO (08:37)
[2023-02-08] MEDS: buPROPion HCl XL 300 MG TAB.ER.24H PO (08:37)
[2023-02-08] MEDS: Gabapentin 600 MG TABLET PO ×3 (08:37→20:29)
[2023-02-08] MEDS: Propranolol HCL 10 MG TABLET PO ×2 (08:37→20:28)
[2023-02-08] MEDS: methADONE HCl 20 MG/2 ML ORAL.CONC 190 MG PO (08:37)
[2023-02-08] MEDS: Ibuprofen 600 MG TABLET PO (08:43)
[2023-02-08] MEDS: cloNIDine HCL 0.2 MG TABLET PO ×2 (08:44→13:12)
--- NOTE | 2023-02-08 09:48 | P.PNPSI_ITS ---
Subjective Subjective Date of Service: 02/08/23 Reason For Visit: SI Interim History: met with patient; discussed with team anxious since struggling to get into a program, however says depression still at bay and she's continuing to use coping skills to manage stress. Mental Status Exam Mental Status Exam Narrative: Pt is alert and oriented; behavior is cooperative and calm; dressed in casual attire; mood is described as anxious and mood congruent; eye contact appropriate; Speech is normal rate, volume and prosody and not pressured; no psychomotor agitation/retardation present; thought process is organized and goal directed; Thought content is on tx; otherwise pertinent to relevant topics and without any delusional content, paranoid ideations or grandiosity; denies SI/HI. There is no evidence of perceptual disturbance. Judgment/insight fair Diagnostics Vital Signs (24Hr): Vital Signs - 24 hr 02/07/23 16:14 02/08/23 08:30 Temperature 98.2 F 97.7 F Pulse Rate 79 74 Respiratory Rate 16 Blood Pressure 116/65 105/57 L Pulse Oximetry 94 94 Oxygen Delivery Method Room Air Room Air BMI result Body Mass Index 49.1 Labs 01/23/23 18:28 02/06/23 10:58 Labs: Laboratory Results - last 48 hr 02/06/23 10:58 Creatinine 0.79 Estim Creat Clear Calc 122.4 Estimated GFR > 60 Medications Medications Current Medications Acetaminophen (Acetaminophen 325 Mg Tablet) 650 mg PO Q6H PRN PRN Reason: Headache/Pain Mild Scale (1-3) Last Admin: 02/07/23 14:14 Dose: 650 mg Al Hydroxide/Mg Hydroxide (Magnesium Hydrox/Alum Hydrox 30 Ml Oral.Susp) 30 ml PO Q6H PRN PRN Reason: Heartburn/Nausea Amphetamine/Dextroamphetamine (Dextroamphetamine/Amphetamine Xr 10 Mg Cap.Er.24h) 40 mg PO DAILY AMELIE Last Admin: 02/08/23 08:37 Dose: 40 mg Benzocaine (Throat Lozenge, Medicated Lozenge) 1 lozenge MUCOUS MEM Q2H PRN PRN Reason: Sore Throat Last Admin: 02/06/23 01:20 Dose: 1 lozenge Bupropion HCl (Bupropion Hcl Xl 150 Mg Tab.Er.24h) 150 mg PO DAILY AMELIE Last Admin: 02/08/23 08:36 Dose: 150 mg Bupropion HCl (Bupropion Hcl Xl 300 Mg Tab.Er.24h) 300 mg PO DAILY AMELIE Last Admin: 02/08/23 08:37 Dose: 300 mg Chlorpromazine HCl (Chlorpromazine Hcl 25 Mg Tablet) 50 mg PO BEDTIME AMELIE Last Admin: 02/07/23 20:07 Dose: 50 mg Chlorpromazine HCl (Chlorpromazine Hcl 25 Mg Tablet) 25 mg PO TID PRN PRN Reason: anxiety Last Admin: 02/07/23 17:31 Dose: 25 mg Clonazepam (Clonazepam 1 Mg Tablet) 1 mg PO Q6H PRN PRN Reason: anxiety Last Admin: 02/07/23 20:08 Dose: 1 mg Clonidine HCl (Clonidine Hcl 0.2 Mg Tablet) 0.4 mg PO BEDTIME AMELIE; Protocol Last Admin: 02/07/23 20:08 Dose: 0.4 mg Clonidine HCl (Clonidine Hcl 0.2 Mg Tablet) 0.2 mg PO BID PRN; Protocol PRN Reason: anxiety Last Admin: 02/08/23 08:44 Dose: 0.2 mg Docusate Sodium (Docusate Sodium 100 Mg Capsule) 100 mg PO BID PRN PRN Reason: constipation Last Admin: 02/01/23 19:51 Dose: 100 mg Gabapentin (Gabapentin 600 Mg Tablet) 600 mg PO TID AMELIE Last Admin: 02/08/23 08:37 Dose: 600 mg Hydrochlorothiazide (Hydrochlorothiazide 12.5 Mg Tablet) 12.5 mg PO DAILY AMELIE; Protocol Last Admin: 02/08/23 08:36 Dose: 12.5 mg Hydroxyzine HCl (Hydroxyzine Hcl 25 Mg Tablet) 25 mg PO Q6H PRN PRN Reason: Anxiety Last Admin: 02/07/23 20:08 Dose: 25 mg Ibuprofen (Ibuprofen 600 Mg Tablet) 600 mg PO BID PRN PRN Reason: Pain (Scale Score 1-3) Last Admin: 02/08/23 08:43 Dose: 600 mg Lurasidone HCl (Lurasidone Hcl 40 Mg Tablet) 120 mg PO DAILY@1800 AMELIE Last Admin: 02/07/23 17:33 Dose: 120 mg Magnesium Hydroxide (Milk Of Magnesia 30 Ml Oral.Susp) 30 ml PO DAILY PRN PRN Reason: Constipation Metformin HCl (Metformin Hcl 500 Mg Tablet) 500 mg PO BIDWM [facility] Last Admin: 02/08/23 08:36 Dose: 500 mg Methadone HCl (Methadone Hcl 20 Mg/2 Ml Oral.Conc) 190 mg PO DAILY [facility] Last Admin: 02/08/23 08:37 Dose: 190 mg Multivitamins/Vitamin C (Multivitamin Tablet) 1 tab PO DAILY [facility] Last Admin: 02/08/23 08:36 Dose: 1 tab Nicotine (Nicotine 21 Mg Patch.Td24) 21 mg TRANSDERMA DAILY PRN PRN Reason: smoking cessation Last Admin: 02/01/23 12:40 Dose: 21 mg Nicotine Polacrilex (Nicotine Polacrilex 2 Mg Gum) 4 mg BUCCAL Q2H PRN PRN Reason: Nicotine Cravings Omeprazole (Omeprazole 20 Mg Capsule.Dr) 20 mg PO BID@0630,1630 [facility] Last Admin: 02/08/23 05:33 Dose: 20 mg Oxybutynin Chloride (Oxybutynin Chloride 5 Mg Tablet) 5 mg PO TID [facility] Last Admin: 02/08/23 08:36 Dose: 5 mg Propranolol HCl (Propranolol Hcl 10 Mg Tablet) 10 mg PO BID [facility]; Protocol Last Admin: 02/08/23 08:37 Dose: 10 mg Venlafaxine HCl (Venlafaxine Hcl Er 150 Mg Cap.Er.24h) 150 mg PO DAILY [facility] Last Admin: 02/08/23 08:36 Dose: 150 mg Allergies Allergies Allergy/AdvReac Type Severity Reaction Status Date / Time meperidine [From Demerol] Allergy Mild Unknown Verified 04/06/22 09:27 Penicillins Allergy Mild Unknown Verified 04/06/22 09:27 propoxyphene Allergy Mild Unknown Verified 04/06/22 09:27 [From Darvocet-N 50] Sulfa (Sulfonamide Allergy Mild Hives Verified 04/06/22 09:27 Antibiotics) penicillin V Allergy Unknown Swelling Verified 04/06/22 09:27 Assessment & Plan Assessment & Plan (1) Bipolar 1 disorder, depressed, severe: Status: Acute Code(s): F31.4 - Bipolar disorder, current episode depressed, severe, without psychotic features (2) Opioid use disorder, moderate, in early remission: Status: Acute Code(s): F11.21 - Opioid dependence, in remission (3) PTSD (post-traumatic stress disorder): Status: Acute Code(s): F43.10 - Post-traumatic stress disorder, unspecified (4) Diabetes: Status: Acute Code(s): E11.9 - Type 2 diabetes mellitus without complications Plan Patient is a 32-year-old female with history of bipolar disorder, PTSD, diabetes, opioid use disorder in sustained remission on methadone, who presents for worsening depression following unintended discontinuation of Latuda. Patient reports that she was doing quite well after her last discharge, April 2022 and has not been to the hospital since. She [facility] at [facility] which she found very helpful, was seeing her daughter, taking less p.r.n. clonazepam, sober and was doing well up until about a month ago when her insurance stopped covering Latuda; provider reapplied for prior Auth however took considerable time. Since then her mood started to decline and she became really depressed, with low energy, diminished interest, poor concentration, sleep disturbance, appetite disturbance and found it difficult to fulfill obligations at the program. Patient flipped into a mixed-manic episode, talking fast, no sleep, agitated, out at night smoking past curfew, inefficient and impulsively left the program. Patient then became depressed again. She eventually was able to restart Latuda for the past several days however she remains very depressed and started feeling suicidal so self presented to not to hurt herself. Denies any relapse, drug or alcohol use though reports she got close to relapsing with opioids. Denies AVH. Patient remains depressed; wants to get back on former home dose Hospital course: 01/25 patient reports continued depression, continued SI; patient understands that she just got back to her regular dose of Latuda and recovery will take more time; continue current treatment plan 01/26 remains quite depressed with SI; isolating; agrees to push herself into behavioral activation; patient is now back on medication regimen that has helped in the past as and will likely take more time for depression to be again abating; continue current med regimen at this time 01/29 still quite depressed; continue current tx plan 01/30 little less depressed; using coping skill; getting more optimistic 01/31:Patient reports feeling anxious and depressed ; pt stated, I don't know why I feel this way. I just wake up like this . Pt reports suicidal ideation with plan to overdose on heroin; pt stated, I would do it so I wouldn't have to deal with my family or them deal with me. I cause people issues for people . denies HI/VH/AH. Pt c/o sore throat, will order Cepacol lozenges. 02/01 patient doing better, pushing herself to use coping skills which are helping; no SI; much more self aware. Very much hoping for a program as she has remained sober and desperately wants to continue being sober. 02/02 Though still with some depression, Patient reports improved mood; however still very anxious; discussed medication management and patient agreed to go up on Effexor to see if they can help with anxiety and depression. Patient still focusing on using coping skills instead of resorting to PRNs. 02/03 Continue current regime and plan of care. 02/04 Change klonopin to bid prn with a timing change of q 6 hours vs q 12 hours. 02/05 Patient reports she is doing overall pretty good. She still quite anxious but says she has been utilizing coping skills which have proved effective. She is having nightmares again, which had resolved over the past year but returned since Latuda accidentally discontinued. She says she does not want any further medication and is anticipating that they will again resolve with more time. Patient wants to remain with current BPH and clinic and asked for help getting in touch with them since she has not been able to. Patient very much wants to get into a program and has been calling places on her. She remains in good behavioral and impulse control and engaged in treatment. -over the past year, patient has remained sober and doing well, engaged in treatment; to no fault of her own, Latuda was accidentally not prescribed and patient was without it for a month, during which time she emotionally decompensated; despite this she remained sober. For patient, there is a lot of pressure placed on being in a program/having housing which is a prerequisite for visitation with her daughter, with whom she desperately wants remain connected. Patient has worked hard to stay stable and employ coping skills and remains invested in her treatment and sobriety. It is production underwriter's opinion that it is in her best interest to remain on the unit further to continue helping with disposition planning. 02/08: Continue current tx plan. Plan: CV Q 15 minute checks Continue Effexor XR to 150 mg daily for continued anxiety Continue Latuda to 120 mg daily at dinnertime Dispo planning with social Work Patient educated on: diagnosis and therapeutic strategies Informed Consent: understands Reason for continued inpatient stay Substantial Risk for: stable for discharge Time Spent With Patient Time: Total time managing care of this patient today ____ minutes.
[2023-02-08] MEDS: Acetaminophen 325 MG TABLET 650 MG PO ×2 (13:12→20:29)
[2023-02-08] MEDS: clonazePAM 1 MG TABLET PO ×2 (13:12→20:28)
[2023-02-08] MEDS: chlorproMAZINE HCl 25 MG TABLET PO (13:12)
[2023-02-08 13:17] VITALS: BP 105/62; PULSE 116
[2023-02-08 16:17] VITALS: BP 124/68; PULSE 74; TEMP 36.7; O2SAT 94
[2023-02-08] MEDS: Lurasidone HCl 40 MG TABLET 120 MG PO (17:06)
[2023-02-08] MEDS: chlorproMAZINE HCl 25 MG TABLET 50 MG PO (20:28)
[2023-02-08] MEDS: cloNIDine HCL 0.2 MG TABLET 0.4 MG PO (20:29)
[2023-02-09] MEDS: Omeprazole 20 MG CAPSULE.DR PO ×2 (05:42→16:12)
[2023-02-09 08:00] VITALS: BP 104/66; PULSE 73; TEMP 36.7; O2SAT 92
[2023-02-09] MEDS: Propranolol HCL 10 MG TABLET PO ×2 (09:19→21:23)
[2023-02-09] MEDS: oxyBUTYnin chloride 5 MG TABLET PO ×3 (09:19→21:23)
[2023-02-09] MEDS: metFORMIN HCl 500 MG TABLET PO ×2 (09:19→16:12)
[2023-02-09] MEDS: Gabapentin 600 MG TABLET PO ×3 (09:19→21:23)
[2023-02-09] MEDS: methADONE HCl 20 MG/2 ML ORAL.CONC 190 MG PO (09:19)
[2023-02-09] MEDS: Venlafaxine HCl ER 150 MG CAP.ER.24H PO (09:19)
[2023-02-09] MEDS: Multivitamin TABLET 1 TAB PO (09:19)
[2023-02-09] MEDS: buPROPion HCl XL 150 MG TAB.ER.24H PO (09:19)
[2023-02-09] MEDS: buPROPion HCl XL 300 MG TAB.ER.24H PO (09:19)
[2023-02-09] MEDS: hydroCHLOROthiazide 12.5 MG TABLET PO (09:21)
--- NOTE | 2023-02-09 09:41 | P.PNPSI_ITS ---
Subjective Subjective Date of Service: 02/09/23 Reason For Visit: SI Interim History: met with patient; discussed with team Patient has been sober for 2 years on methadone; discussed possible switching to Suboxone which is easier to manage as an outpatient and she would like to do; however given her success with sobriety and currently unstable housing situation, she opts to remain on methadone. Otherwise patient reports her mood is much better and thinks the increase in venlafaxine is helping. Working on coping to manage her anxiety regarding housing Mental Status Exam Mental Status Exam Narrative: Pt is alert and oriented; behavior is cooperative and calm; dressed in casual attire; mood is described as good and mood congruent; eye contact appropriate; Speech is normal rate, volume and prosody and not pressured; no psychomotor agitation/retardation present; thought process is organized and goal directed; Thought content is on tx; otherwise pertinent to relevant topics and without any delusional content, paranoid ideations or grandiosity; denies SI/HI. There is no evidence of perceptual disturbance. Judgment/insight fair Diagnostics Vital Signs (24Hr): Vital Signs - 24 hr 02/08/23 13:17 02/08/23 16:17 Temperature 98.0 F Pulse Rate 116 H 74 Blood Pressure 105/62 124/68 Pulse Oximetry 94 Oxygen Delivery Method Room Air BMI result Body Mass Index 49.1 Labs 01/23/23 18:28 02/06/23 10:58 Medications Medications Current Medications Acetaminophen (Acetaminophen 325 Mg Tablet) 650 mg PO Q6H PRN PRN Reason: Headache/Pain Mild Scale (1-3) Last Admin: 02/08/23 20:29 Dose: 650 mg Al Hydroxide/Mg Hydroxide (Magnesium Hydrox/Alum Hydrox 30 Ml Oral.Susp) 30 ml PO Q6H PRN PRN Reason: Heartburn/Nausea Amphetamine/Dextroamphetamine (Dextroamphetamine/Amphetamine Xr 10 Mg Cap.Er.24h) 40 mg PO DAILY AMELIE Last Admin: 02/08/23 08:37 Dose: 40 mg Benzocaine (Throat Lozenge, Medicated Lozenge) 1 lozenge MUCOUS MEM Q2H PRN PRN Reason: Sore Throat Last Admin: 02/06/23 01:20 Dose: 1 lozenge Bupropion HCl (Bupropion Hcl Xl 150 Mg Tab.Er.24h) 150 mg PO DAILY AMELIE Last Admin: 02/09/23 09:19 Dose: 150 mg Bupropion HCl (Bupropion Hcl Xl 300 Mg Tab.Er.24h) 300 mg PO DAILY AMELIE Last Admin: 02/09/23 09:19 Dose: 300 mg Chlorpromazine HCl (Chlorpromazine Hcl 25 Mg Tablet) 50 mg PO BEDTIME AMELIE Last Admin: 02/08/23 20:28 Dose: 50 mg Chlorpromazine HCl (Chlorpromazine Hcl 25 Mg Tablet) 25 mg PO TID PRN PRN Reason: anxiety Last Admin: 02/08/23 13:12 Dose: 25 mg Clonazepam (Clonazepam 1 Mg Tablet) 1 mg PO Q6H PRN PRN Reason: anxiety Last Admin: 02/08/23 20:28 Dose: 1 mg Clonidine HCl (Clonidine Hcl 0.2 Mg Tablet) 0.4 mg PO BEDTIME AMELIE; Protocol Last Admin: 02/08/23 20:29 Dose: 0.4 mg Clonidine HCl (Clonidine Hcl 0.2 Mg Tablet) 0.2 mg PO BID PRN; Protocol PRN Reason: anxiety Last Admin: 02/08/23 13:12 Dose: 0.2 mg Docusate Sodium (Docusate Sodium 100 Mg Capsule) 100 mg PO BID PRN PRN Reason: constipation Last Admin: 02/01/23 19:51 Dose: 100 mg Gabapentin (Gabapentin 600 Mg Tablet) 600 mg PO TID AMELIE Last Admin: 02/09/23 09:19 Dose: 600 mg Hydrochlorothiazide (Hydrochlorothiazide 12.5 Mg Tablet) 12.5 mg PO DAILY AMELIE; Protocol Last Admin: 02/09/23 09:21 Dose: 12.5 mg Hydroxyzine HCl (Hydroxyzine Hcl 25 Mg Tablet) 25 mg PO Q6H PRN PRN Reason: Anxiety Last Admin: 02/07/23 20:08 Dose: 25 mg Ibuprofen (Ibuprofen 600 Mg Tablet) 600 mg PO BID PRN PRN Reason: Pain (Scale Score 1-3) Last Admin: 02/08/23 08:43 Dose: 600 mg Lurasidone HCl (Lurasidone Hcl 40 Mg Tablet) 120 mg PO DAILY@1800 AMELIE Last Admin: 02/08/23 17:06 Dose: 120 mg Magnesium Hydroxide (Milk Of Magnesia 30 Ml Oral.Susp) 30 ml PO DAILY PRN PRN Reason: Constipation Metformin HCl (Metformin Hcl 500 Mg Tablet) 500 mg PO BIDWM [facility] Last Admin: 02/09/23 09:19 Dose: 500 mg Methadone HCl (Methadone Hcl 20 Mg/2 Ml Oral.Conc) 190 mg PO DAILY [facility] Last Admin: 02/09/23 09:19 Dose: 190 mg Multivitamins/Vitamin C (Multivitamin Tablet) 1 tab PO DAILY [facility] Last Admin: 02/09/23 09:19 Dose: 1 tab Nicotine (Nicotine 21 Mg Patch.Td24) 21 mg TRANSDERMA DAILY PRN PRN Reason: smoking cessation Last Admin: 02/01/23 12:40 Dose: 21 mg Nicotine Polacrilex (Nicotine Polacrilex 2 Mg Gum) 4 mg BUCCAL Q2H PRN PRN Reason: Nicotine Cravings Omeprazole (Omeprazole 20 Mg Capsule.Dr) 20 mg PO BID@0630,1630 [facility] Last Admin: 02/09/23 05:42 Dose: 20 mg Oxybutynin Chloride (Oxybutynin Chloride 5 Mg Tablet) 5 mg PO TID [facility] Last Admin: 02/09/23 09:19 Dose: 5 mg Propranolol HCl (Propranolol Hcl 10 Mg Tablet) 10 mg PO BID [facility]; Protocol Last Admin: 02/09/23 09:19 Dose: 10 mg Venlafaxine HCl (Venlafaxine Hcl Er 150 Mg Cap.Er.24h) 150 mg PO DAILY [facility] Last Admin: 02/09/23 09:19 Dose: 150 mg Allergies Allergies Allergy/AdvReac Type Severity Reaction Status Date / Time meperidine [From Demerol] Allergy Mild Unknown Verified 04/06/22 09:27 Penicillins Allergy Mild Unknown Verified 04/06/22 09:27 propoxyphene Allergy Mild Unknown Verified 04/06/22 09:27 [From Darvocet-N 50] Sulfa (Sulfonamide Allergy Mild Hives Verified 04/06/22 09:27 Antibiotics) penicillin V Allergy Unknown Swelling Verified 04/06/22 09:27 Assessment & Plan Assessment & Plan (1) Bipolar 1 disorder, depressed, severe: Status: Acute Code(s): F31.4 - Bipolar disorder, current episode depressed, severe, without psychotic features (2) Opioid use disorder, moderate, in early remission: Status: Acute Code(s): F11.21 - Opioid dependence, in remission (3) PTSD (post-traumatic stress disorder): Status: Acute Code(s): F43.10 - Post-traumatic stress disorder, unspecified (4) Diabetes: Status: Acute Code(s): E11.9 - Type 2 diabetes mellitus without complications Plan Patient is a 32-year-old female with history of bipolar disorder, PTSD, diabetes, opioid use disorder in sustained remission on methadone, who presents for worsening depression following unintended discontinuation of Latuda. Patient reports that she was doing quite well after her last discharge, April 2022 and has not been to the hospital since. She [facility] at [facility] which she found very helpful, was seeing her daughter, taking less p.r.n. clonazepam, sober and was doing well up until about a month ago when her insurance stopped covering Latuda; provider reapplied for prior Auth however took considerable time. Since then her mood started to decline and she became really depressed, with low energy, diminished interest, poor concentration, sleep disturbance, appetite disturbance and found it difficult to fulfill obligations at the program. Patient flipped into a mixed-manic episode, talking fast, no sleep, agitated, out at night smoking past curfew, inefficient and impulsively left the program. Patient then became depressed again. She eventually was able to restart Latuda for the past several days however she remains very depressed and started feeling suicidal so self presented to not to hurt herself. Denies any relapse, drug or alcohol use though reports she got close to relapsing with opioids. Denies AVH. Patient remains depressed; wants to get back on former home dose Hospital course: 01/25 patient reports continued depression, continued SI; patient understands that she just got back to her regular dose of Latuda and recovery will take more time; continue current treatment plan 01/26 remains quite depressed with SI; isolating; agrees to push herself into behavioral activation; patient is now back on medication regimen that has helped in the past as and will likely take more time for depression to be again abating; continue current med regimen at this time 01/29 still quite depressed; continue current tx plan 01/30 little less depressed; using coping skill; getting more optimistic 01/31:Patient reports feeling anxious and depressed ; pt stated, I don't know why I feel this way. I just wake up like this . Pt reports suicidal ideation with plan to overdose on heroin; pt stated, I would do it so I wouldn't have to deal with my family or them deal with me. I cause people issues for people . denies HI/VH/AH. Pt c/o sore throat, will order Cepacol lozenges. 02/01 patient doing better, pushing herself to use coping skills which are helping; no SI; much more self aware. Very much hoping for a program as she has remained sober and desperately wants to continue being sober. 02/02 Though still with some depression, Patient reports improved mood; however still very anxious; discussed medication management and patient agreed to go up on Effexor to see if they can help with anxiety and depression. Patient still focusing on using coping skills instead of resorting to PRNs. 02/03 Continue current regime and plan of care. 02/04 Change klonopin to bid prn with a timing change of q 6 hours vs q 12 hours. 02/05 Patient reports she is doing overall pretty good. She still quite anxious but says she has been utilizing coping skills which have proved effective. She is having nightmares again, which had resolved over the past year but returned since Latuda accidentally discontinued. She says she does not want any further medication and is anticipating that they will again resolve with more time. Patient wants to remain with current [facility] and clinic and asked for help getting in touch with them since she has not been able to. Patient very much wants to get into a program and has been calling places on her. She remains in good behavioral and impulse control and engaged in treatment. -over the past year, patient has remained sober and doing well, engaged in treatment; to no fault of her own, Latuda was accidentally not prescribed and patient was without it for a month, during which time she emotionally decompensated; despite this she remained sober. For patient, there is a lot of pressure placed on being in a program/having housing which is a prerequisite for visitation with her daughter, with whom she desperately wants remain connected. Patient has worked hard to stay stable and employ coping skills and remains invested in her treatment and sobriety. It is typewriter assembler's opinion that it is in her best interest to remain on the unit further to continue helping with disposition planning. 02/08: Continue current tx plan. 02/09 Patient has been sober for 2 years on methadone; discussed possible switching to Suboxone which is easier to manage as an outpatient and she would like to do; however given her success with sobriety and currently unstable housing situation, she opts to remain on methadone. Otherwise patient reports her mood is much better and thinks the increase in venlafaxine is helping. Working on coping to manage her anxiety regarding housing Plan: CV Q 15 minute checks Continue Effexor XR to 150 mg daily for continued anxiety Continue Latuda to 120 mg daily at dinnertime Dispo planning with social Work Patient educated on: diagnosis, medication risk/benefits and substance abuse Informed Consent: understands Reason for continued inpatient stay Substantial Risk for: stable for discharge Time Spent With Patient Time: Total time managing care of this patient today ____ minutes.
[2023-02-09] MEDS: Dextroamphetamine/Amphetamine XR 10 MG CAP.ER.24H 40 MG PO (10:41)
[2023-02-09] MEDS: Ibuprofen 600 MG TABLET PO (14:22)
[2023-02-09] MEDS: clonazePAM 1 MG TABLET PO ×2 (14:23→21:29)
[2023-02-09] MEDS: chlorproMAZINE HCl 25 MG TABLET PO (14:23)
[2023-02-09 16:00] VITALS: BP 128/57; PULSE 105
[2023-02-09] MEDS: Lurasidone HCl 40 MG TABLET 120 MG PO (16:11)
[2023-02-09] MEDS: Acetaminophen 325 MG TABLET 650 MG PO ×2 (16:11→21:23)
[2023-02-09] MEDS: cloNIDine HCL 0.2 MG TABLET PO (16:12)
[2023-02-09 18:00] VITALS: BP 105/60; PULSE 81; RESP 16; TEMP 36.9; O2SAT 96
[2023-02-09 21:17] VITALS: BP 113/68; PULSE 85
[2023-02-09] MEDS: chlorproMAZINE HCl 25 MG TABLET 50 MG PO (21:22)
[2023-02-09] MEDS: cloNIDine HCL 0.2 MG TABLET 0.4 MG PO (21:22)
[2023-02-10] MEDS: Omeprazole 20 MG CAPSULE.DR PO ×2 (05:33→15:45)
[2023-02-10] MEDS: methADONE HCl 20 MG/2 ML ORAL.CONC 190 MG PO (08:40)
[2023-02-10] MEDS: cloNIDine HCL 0.2 MG TABLET PO ×2 (08:41→18:44)
[2023-02-10] MEDS: oxyBUTYnin chloride 5 MG TABLET PO ×3 (08:41→20:39)
[2023-02-10] MEDS: Venlafaxine HCl ER 150 MG CAP.ER.24H PO (08:41)
[2023-02-10] MEDS: buPROPion HCl XL 300 MG TAB.ER.24H PO (08:41)
[2023-02-10] MEDS: buPROPion HCl XL 150 MG TAB.ER.24H PO (08:41)
[2023-02-10] MEDS: Multivitamin TABLET 1 TAB PO (08:41)
[2023-02-10] MEDS: hydroCHLOROthiazide 12.5 MG TABLET PO (08:41)
[2023-02-10] MEDS: metFORMIN HCl 500 MG TABLET PO ×2 (08:41→15:45)
[2023-02-10] MEDS: Propranolol HCL 10 MG TABLET PO ×2 (08:41→20:39)
[2023-02-10] MEDS: Gabapentin 600 MG TABLET PO ×3 (08:41→20:38)
[2023-02-10] MEDS: Dextroamphetamine/Amphetamine XR 10 MG CAP.ER.24H 40 MG PO (08:41)
[2023-02-10 08:42] VITALS: BP 113/61; PULSE 77; RESP 16; TEMP 36.5; O2SAT 95
--- NOTE | 2023-02-10 11:12 | P.PNPSI_ITS ---
Subjective Subjective Date of Service: 02/10/23 Reason For Visit: SI Subjective Notes: Conditional Voluntary Interim History: Patient was seen and discussed in rounds today. Records and plans were reviewed. She is somewhat guarded and withdrawn but cooperative and visible. No complaints or side effects. Eating and sleeping adequately. She is concerned about housing issues. No changes were made today Review of Systems Review of Systems Yes all other systems are reviewed and are negative Mental Status Exam Mental Status Exam Narrative: In today's visit she is alert, oriented and pleasant. Normal speech. Good eye contact. Affect is appropriate and varied. No signs of psychosis. Cognitively intact. Judgment is intact. No SI. Diagnostics Vital Signs (24Hr): Vital Signs - 24 hr 02/09/23 16:00 02/09/23 18:00 02/09/23 21:17 Temperature 98.4 F Pulse Rate 105 H 81 85 Respiratory Rate 16 Blood Pressure 128/57 L 105/60 113/68 Pulse Oximetry 96 Oxygen Delivery Method Room Air BMI result Body Mass Index 49.1 Labs 01/23/23 18:28 02/06/23 10:58 Medications Medications Current Medications Acetaminophen (Acetaminophen 325 Mg Tablet) 650 mg PO Q6H PRN PRN Reason: Headache/Pain Mild Scale (1-3) Last Admin: 02/09/23 21:23 Dose: 650 mg Al Hydroxide/Mg Hydroxide (Magnesium Hydrox/Alum Hydrox 30 Ml Oral.Susp) 30 ml PO Q6H PRN PRN Reason: Heartburn/Nausea Amphetamine/Dextroamphetamine (Dextroamphetamine/Amphetamine Xr 10 Mg Cap.Er.24h) 40 mg PO DAILY [facility] Last Admin: 02/10/23 08:41 Dose: 40 mg Benzocaine (Throat Lozenge, Medicated Lozenge) 1 lozenge MUCOUS MEM Q2H PRN PRN Reason: Sore Throat Last Admin: 02/06/23 01:20 Dose: 1 lozenge Bupropion HCl (Bupropion Hcl Xl 150 Mg Tab.Er.24h) 150 mg PO DAILY [facility] Last Admin: 02/10/23 08:41 Dose: 150 mg Bupropion HCl (Bupropion Hcl Xl 300 Mg Tab.Er.24h) 300 mg PO DAILY [facility] Last Admin: 02/10/23 08:41 Dose: 300 mg Chlorpromazine HCl (Chlorpromazine Hcl 25 Mg Tablet) 50 mg PO BEDTIME [facility] Last Admin: 02/09/23 21:22 Dose: 50 mg Chlorpromazine HCl (Chlorpromazine Hcl 25 Mg Tablet) 25 mg PO TID PRN PRN Reason: anxiety Last Admin: 02/09/23 14:23 Dose: 25 mg Clonazepam (Clonazepam 1 Mg Tablet) 1 mg PO Q6H PRN PRN Reason: Anxiety Last Admin: 02/09/23 21:29 Dose: 1 mg Clonidine HCl (Clonidine Hcl 0.2 Mg Tablet) 0.4 mg PO BEDTIME [facility]; Protocol Last Admin: 02/09/23 21:22 Dose: 0.4 mg Clonidine HCl (Clonidine Hcl 0.2 Mg Tablet) 0.2 mg PO BID PRN; Protocol PRN Reason: anxiety Last Admin: 02/10/23 08:41 Dose: 0.2 mg Docusate Sodium (Docusate Sodium 100 Mg Capsule) 100 mg PO BID PRN PRN Reason: constipation Last Admin: 02/01/23 19:51 Dose: 100 mg Gabapentin (Gabapentin 600 Mg Tablet) 600 mg PO TID [facility] Last Admin: 02/10/23 08:41 Dose: 600 mg Hydrochlorothiazide (Hydrochlorothiazide 12.5 Mg Tablet) 12.5 mg PO DAILY [facility]; Protocol Last Admin: 02/10/23 08:41 Dose: 12.5 mg Hydroxyzine HCl (Hydroxyzine Hcl 25 Mg Tablet) 25 mg PO Q6H PRN PRN Reason: Anxiety Last Admin: 02/07/23 20:08 Dose: 25 mg Ibuprofen (Ibuprofen 600 Mg Tablet) 600 mg PO BID PRN PRN Reason: Pain (Scale Score 1-3) Last Admin: 02/09/23 14:22 Dose: 600 mg Lurasidone HCl (Lurasidone Hcl 40 Mg Tablet) 120 mg PO DAILY@1800 [facility] Last Admin: 02/09/23 16:11 Dose: 120 mg Magnesium Hydroxide (Milk Of Magnesia 30 Ml Oral.Susp) 30 ml PO DAILY PRN PRN Reason: Constipation Metformin HCl (Metformin Hcl 500 Mg Tablet) 500 mg PO BIDWM [facility] Last Admin: 02/10/23 08:41 Dose: 500 mg Methadone HCl (Methadone Hcl 20 Mg/2 Ml Oral.Conc) 190 mg PO DAILY [facility] Last Admin: 02/10/23 08:40 Dose: 190 mg Multivitamins/Vitamin C (Multivitamin Tablet) 1 tab PO DAILY [facility] Last Admin: 02/10/23 08:41 Dose: 1 tab Nicotine (Nicotine 21 Mg Patch.Td24) 21 mg TRANSDERMA DAILY PRN PRN Reason: smoking cessation Last Admin: 02/01/23 12:40 Dose: 21 mg Nicotine Polacrilex (Nicotine Polacrilex 2 Mg Gum) 4 mg BUCCAL Q2H PRN PRN Reason: Nicotine Cravings Omeprazole (Omeprazole 20 Mg Capsule.Dr) 20 mg PO BID@0630,1630 [facility] Last Admin: 02/10/23 05:33 Dose: 20 mg Oxybutynin Chloride (Oxybutynin Chloride 5 Mg Tablet) 5 mg PO TID [facility] Last Admin: 02/10/23 08:41 Dose: 5 mg Propranolol HCl (Propranolol Hcl 10 Mg Tablet) 10 mg PO BID [facility]; Protocol Last Admin: 02/10/23 08:41 Dose: 10 mg Venlafaxine HCl (Venlafaxine Hcl Er 150 Mg Cap.Er.24h) 150 mg PO DAILY [facility] Last Admin: 02/10/23 08:41 Dose: 150 mg Allergies Allergies Allergy/AdvReac Type Severity Reaction Status Date / Time meperidine [From Demerol] Allergy Mild Unknown Verified 04/06/22 09:27 Penicillins Allergy Mild Unknown Verified 04/06/22 09:27 propoxyphene Allergy Mild Unknown Verified 04/06/22 09:27 [From Darvocet-N 50] Sulfa (Sulfonamide Allergy Mild Hives Verified 04/06/22 09:27 Antibiotics) penicillin V Allergy Unknown Swelling Verified 04/06/22 09:27 Assessment & Plan Assessment & Plan (1) Bipolar 1 disorder, depressed, severe: Status: Acute Code(s): F31.4 - Bipolar disorder, current episode depressed, severe, without psychotic features (2) Opioid use disorder, moderate, in early remission: Status: Acute Code(s): F11.21 - Opioid dependence, in remission (3) PTSD (post-traumatic stress disorder): Status: Acute Code(s): F43.10 - Post-traumatic stress disorder, unspecified (4) Diabetes: Status: Acute Code(s): E11.9 - Type 2 diabetes mellitus without complications Plan Patient is a 32-year-old female with history of bipolar disorder, PTSD, diabetes, opioid use disorder in sustained remission on methadone, who presents for worsening depression following unintended discontinuation of Latuda. Patient reports that she was doing quite well after her last discharge, April 2022 and has not been to the hospital since. She [facility] at [facility] which she found very helpful, was seeing her daughter, taking less p.r.n. clonazepam, sober and was doing well up until about a month ago when her insurance stopped covering Latuda; provider reapplied for prior Auth however took considerable time. Since then her mood started to decline and she became really depressed, with low energy, diminished interest, poor concentration, sleep disturbance, appetite disturbance and found it difficult to fulfill obligations at the program. Patient flipped into a mixed-manic episode, talking fast, no sleep, agitated, out at night smoking past curfew, inefficient and impulsively left the program. Patient then became depressed again. She eventually was able to restart Latuda for the past several days however she remains very depressed and started feeling suicidal so self presented to not to hurt herself. Denies any relapse, drug or alcohol use though reports she got close to relapsing with opioids. Denies AVH. Patient remains depressed; wants to get back on former home dose Hospital course: 01/25 patient reports continued depression, continued SI; patient understands that she just got back to her regular dose of Latuda and recovery will take more time; continue current treatment plan 01/26 remains quite depressed with SI; isolating; agrees to push herself into behavioral activation; patient is now back on medication regimen that has helped in the past as and will likely take more time for depression to be again abating; continue current med regimen at this time 01/29 still quite depressed; continue current tx plan 01/30 little less depressed; using coping skill; getting more optimistic 01/31:Patient reports feeling anxious and depressed ; pt stated, I don't know why I feel this way. I just wake up like this . Pt reports suicidal ideation with plan to overdose on heroin; pt stated, I would do it so I wouldn't have to deal with my family or them deal with me. I cause people issues for people . denies HI/VH/AH. Pt c/o sore throat, will order Cepacol lozenges. 02/01 patient doing better, pushing herself to use coping skills which are helping; no SI; much more self aware. Very much hoping for a program as she has remained sober and desperately wants to continue being sober. 02/02 Though still with some depression, Patient reports improved mood; however still very anxious; discussed medication management and patient agreed to go up on Effexor to see if they can help with anxiety and depression. Patient still focusing on using coping skills instead of resorting to PRNs. 02/03 Continue current regime and plan of care. 02/04 Change klonopin to bid prn with a timing change of q 6 hours vs q 12 hours. 02/05 Patient reports she is doing overall pretty good. She still quite anxious but says she has been utilizing coping skills which have proved effective. She is having nightmares again, which had resolved over the past year but returned since Latuda accidentally discontinued. She says she does not want any further medication and is anticipating that they will again resolve with more time. Patient wants to remain with current BPH and clinic and asked for help getting in touch with them since she has not been able to. Patient very much wants to get into a program and has been calling places on her. She remains in good behavioral and impulse control and engaged in treatment. -over the past year, patient has remained sober and doing well, engaged in treatment; to no fault of her own, Latuda was accidentally not prescribed and patient was without it for a month, during which time she emotionally decompensated; despite this she remained sober. For patient, there is a lot of pressure placed on being in a program/having housing which is a prerequisite for visitation with her daughter, with whom she desperately wants remain connected. Patient has worked hard to stay stable and employ coping skills and remains invested in her treatment and sobriety. It is medical writer's opinion that it is in her best interest to remain on the unit further to continue helping with disposition planning. 02/08: Continue current tx plan. 02/09 Patient has been sober for 2 years on methadone; discussed possible switching to Suboxone which is easier to manage as an outpatient and she would like to do; however given her success with sobriety and currently unstable housing situation, she opts to remain on methadone. Otherwise patient reports her mood is much better and thinks the increase in venlafaxine is helping. Working on coping to manage her anxiety regarding housing 02/10: Continue current regimen and plans Plan: CV Q 15 minute checks Continue Effexor XR to 150 mg daily for continued anxiety Continue Latuda to 120 mg daily at dinnertime Dispo planning with social Work Reason for continued inpatient stay Substantial Risk for: med/psych decompensation Time Spent With Patient Time: Total time managing care of this patient today ____ minutes.
[2023-02-10] MEDS: Ibuprofen 600 MG TABLET PO (12:11)
[2023-02-10] MEDS: clonazePAM 1 MG TABLET PO ×2 (12:11→20:38)
[2023-02-10] MEDS: chlorproMAZINE HCl 25 MG TABLET PO (14:44)
[2023-02-10 18:42] VITALS: BP 105/67; PULSE 103; RESP 18
[2023-02-10] MEDS: Acetaminophen 325 MG TABLET 650 MG PO (18:44)
[2023-02-10] MEDS: Lurasidone HCl 40 MG TABLET 120 MG PO (18:44)
[2023-02-10] MEDS: hydrOXYzine HCL 25 MG TABLET PO (18:45)
[2023-02-10] MEDS: chlorproMAZINE HCl 25 MG TABLET 50 MG PO (20:38)
[2023-02-10] MEDS: cloNIDine HCL 0.2 MG TABLET 0.4 MG PO (20:39)
[2023-02-11] MEDS: Omeprazole 20 MG CAPSULE.DR PO ×2 (05:42→17:43)
[2023-02-11 08:32] VITALS: BP 111/66; PULSE 68; RESP 16; TEMP 36.4; O2SAT 94
[2023-02-11] MEDS: methADONE HCl 20 MG/2 ML ORAL.CONC 190 MG PO (08:53)
[2023-02-11] MEDS: oxyBUTYnin chloride 5 MG TABLET PO ×3 (08:54→20:06)
[2023-02-11] MEDS: hydroCHLOROthiazide 12.5 MG TABLET PO (08:54)
[2023-02-11] MEDS: Multivitamin TABLET 1 TAB PO (08:54)
[2023-02-11] MEDS: Gabapentin 600 MG TABLET PO ×3 (08:54→20:04)
[2023-02-11] MEDS: buPROPion HCl XL 150 MG TAB.ER.24H PO (08:54)
[2023-02-11] MEDS: Dextroamphetamine/Amphetamine XR 10 MG CAP.ER.24H 40 MG PO (08:54)
[2023-02-11] MEDS: Venlafaxine HCl ER 150 MG CAP.ER.24H PO (08:54)
[2023-02-11] MEDS: metFORMIN HCl 500 MG TABLET PO ×2 (08:54→17:43)
[2023-02-11] MEDS: Propranolol HCL 10 MG TABLET PO ×2 (08:54→20:04)
[2023-02-11] MEDS: buPROPion HCl XL 300 MG TAB.ER.24H PO (08:55)
--- NOTE | 2023-02-11 10:40 | HO.PSYCHPN ---
Subjective Subjective Date of Service: 02/11/23 Reason For Visit: SI Subjective Notes: Conditional Voluntary Interim History: Patient was seen and discussed in rounds today. Records and plans were reviewed. She continues to endorse depression with some vague suicidal ideations. She is guarded. Eating and sleeping adequately. She is medication compliant. She is goal oriented but continues to be isolative. No changes were made today Review of Systems Review of Systems Yes all other systems are reviewed and are negative Mental Status Exam Mental Status Exam Narrative: In today's visit she is alert, oriented and pleasant. Normal speech. Good eye contact. Affect is appropriate and varied. No signs of psychosis. Cognitively intact. Judgment is intact. No SI. Diagnostics Vital Signs (24Hr): Vital Signs - 24 hr 02/10/23 18:42 02/11/23 08:32 Temperature 97.5 F Pulse Rate 103 H 68 Respiratory Rate 18 16 Blood Pressure 105/67 111/66 Pulse Oximetry 94 Oxygen Delivery Method Room Air BMI result Body Mass Index 49.1 Labs 01/23/23 18:28 02/06/23 10:58 Medications Medications Current Medications Acetaminophen (Acetaminophen 325 Mg Tablet) 650 mg PO Q6H PRN PRN Reason: Headache/Pain Mild Scale (1-3) Last Admin: 02/10/23 18:44 Dose: 650 mg Al Hydroxide/Mg Hydroxide (Magnesium Hydrox/Alum Hydrox 30 Ml Oral.Susp) 30 ml PO Q6H PRN PRN Reason: Heartburn/Nausea Amphetamine/Dextroamphetamine (Dextroamphetamine/Amphetamine Xr 10 Mg Cap.Er.24h) 40 mg PO DAILY [facility] Last Admin: 02/11/23 08:54 Dose: 40 mg Benzocaine (Throat Lozenge, Medicated Lozenge) 1 lozenge MUCOUS MEM Q2H PRN PRN Reason: Sore Throat Last Admin: 02/06/23 01:20 Dose: 1 lozenge Bupropion HCl (Bupropion Hcl Xl 150 Mg Tab.Er.24h) 150 mg PO DAILY [facility] Last Admin: 02/11/23 08:54 Dose: 150 mg Bupropion HCl (Bupropion Hcl Xl 300 Mg Tab.Er.24h) 300 mg PO DAILY [facility] Last Admin: 02/11/23 08:55 Dose: 300 mg Chlorpromazine HCl (Chlorpromazine Hcl 25 Mg Tablet) 50 mg PO BEDTIME [facility] Last Admin: 02/10/23 20:38 Dose: 50 mg Chlorpromazine HCl (Chlorpromazine Hcl 25 Mg Tablet) 25 mg PO TID PRN PRN Reason: anxiety Last Admin: 02/10/23 14:44 Dose: 25 mg Clonazepam (Clonazepam 1 Mg Tablet) 1 mg PO Q6H PRN PRN Reason: Anxiety Last Admin: 02/10/23 20:38 Dose: 1 mg Clonidine HCl (Clonidine Hcl 0.2 Mg Tablet) 0.4 mg PO BEDTIME [facility]; Protocol Last Admin: 02/10/23 20:39 Dose: 0.4 mg Clonidine HCl (Clonidine Hcl 0.2 Mg Tablet) 0.2 mg PO BID PRN; Protocol PRN Reason: anxiety Last Admin: 02/10/23 18:44 Dose: 0.2 mg Docusate Sodium (Docusate Sodium 100 Mg Capsule) 100 mg PO BID PRN PRN Reason: constipation Last Admin: 02/01/23 19:51 Dose: 100 mg Gabapentin (Gabapentin 600 Mg Tablet) 600 mg PO TID [facility] Last Admin: 02/11/23 08:54 Dose: 600 mg Hydrochlorothiazide (Hydrochlorothiazide 12.5 Mg Tablet) 12.5 mg PO DAILY [facility]; Protocol Last Admin: 02/11/23 08:54 Dose: 12.5 mg Hydroxyzine HCl (Hydroxyzine Hcl 25 Mg Tablet) 25 mg PO Q6H PRN PRN Reason: Anxiety Last Admin: 02/10/23 18:45 Dose: 25 mg Ibuprofen (Ibuprofen 600 Mg Tablet) 600 mg PO BID PRN PRN Reason: Pain (Scale Score 1-3) Last Admin: 02/10/23 12:11 Dose: 600 mg Lurasidone HCl (Lurasidone Hcl 40 Mg Tablet) 120 mg PO DAILY@1800 [facility] Last Admin: 02/10/23 18:44 Dose: 120 mg Magnesium Hydroxide (Milk Of Magnesia 30 Ml Oral.Susp) 30 ml PO DAILY PRN PRN Reason: Constipation Metformin HCl (Metformin Hcl 500 Mg Tablet) 500 mg PO BIDWM [facility] Last Admin: 02/11/23 08:54 Dose: 500 mg Methadone HCl (Methadone Hcl 20 Mg/2 Ml Oral.Conc) 190 mg PO DAILY [facility] Last Admin: 02/11/23 08:53 Dose: 190 mg Multivitamins/Vitamin C (Multivitamin Tablet) 1 tab PO DAILY [facility] Last Admin: 02/11/23 08:54 Dose: 1 tab Nicotine (Nicotine 21 Mg Patch.Td24) 21 mg TRANSDERMA DAILY PRN PRN Reason: smoking cessation Last Admin: 02/01/23 12:40 Dose: 21 mg Nicotine Polacrilex (Nicotine Polacrilex 2 Mg Gum) 4 mg BUCCAL Q2H PRN PRN Reason: Nicotine Cravings Omeprazole (Omeprazole 20 Mg Capsule.Dr) 20 mg PO BID@0630,1630 [facility] Last Admin: 02/11/23 05:42 Dose: 20 mg Oxybutynin Chloride (Oxybutynin Chloride 5 Mg Tablet) 5 mg PO TID [facility] Last Admin: 02/11/23 08:54 Dose: 5 mg Propranolol HCl (Propranolol Hcl 10 Mg Tablet) 10 mg PO BID [facility]; Protocol Last Admin: 02/11/23 08:54 Dose: 10 mg Venlafaxine HCl (Venlafaxine Hcl Er 150 Mg Cap.Er.24h) 150 mg PO DAILY [facility] Last Admin: 02/11/23 08:54 Dose: 150 mg Allergies Allergies Allergy/AdvReac Type Severity Reaction Status Date / Time meperidine [From Demerol] Allergy Mild Unknown Verified 04/06/22 09:27 Penicillins Allergy Mild Unknown Verified 04/06/22 09:27 propoxyphene Allergy Mild Unknown Verified 04/06/22 09:27 [From Darvocet-N 50] Sulfa (Sulfonamide Allergy Mild Hives Verified 04/06/22 09:27 Antibiotics) penicillin V Allergy Unknown Swelling Verified 04/06/22 09:27 Assessment & Plan Assessment & Plan (1) Bipolar 1 disorder, depressed, severe: Status: Acute Code(s): F31.4 - Bipolar disorder, current episode depressed, severe, without psychotic features (2) Opioid use disorder, moderate, in early remission: Status: Acute Code(s): F11.21 - Opioid dependence, in remission (3) PTSD (post-traumatic stress disorder): Status: Acute Code(s): F43.10 - Post-traumatic stress disorder, unspecified (4) Diabetes: Status: Acute Code(s): E11.9 - Type 2 diabetes mellitus without complications Plan Patient is a 32-year-old female with history of bipolar disorder, PTSD, diabetes, opioid use disorder in sustained remission on methadone, who presents for worsening depression following unintended discontinuation of Latuda. Patient reports that she was doing quite well after her last discharge, April 2022 and has not been to the hospital since. She [facility] at [facility] which she found very helpful, was seeing her daughter, taking less p.r.n. clonazepam, sober and was doing well up until about a month ago when her insurance stopped covering Latuda; provider reapplied for prior Auth however took considerable time. Since then her mood started to decline and she became really depressed, with low energy, diminished interest, poor concentration, sleep disturbance, appetite disturbance and found it difficult to fulfill obligations at the program. Patient flipped into a mixed-manic episode, talking fast, no sleep, agitated, out at night smoking past curfew, inefficient and impulsively left the program. Patient then became depressed again. She eventually was able to restart Latuda for the past several days however she remains very depressed and started feeling suicidal so self presented to not to hurt herself. Denies any relapse, drug or alcohol use though reports she got close to relapsing with opioids. Denies AVH. Patient remains depressed; wants to get back on former home dose Hospital course: 01/25 patient reports continued depression, continued SI; patient understands that she just got back to her regular dose of Latuda and recovery will take more time; continue current treatment plan 01/26 remains quite depressed with SI; isolating; agrees to push herself into behavioral activation; patient is now back on medication regimen that has helped in the past as and will likely take more time for depression to be again abating; continue current med regimen at this time 01/29 still quite depressed; continue current tx plan 01/30 little less depressed; using coping skill; getting more optimistic 01/31:Patient reports feeling anxious and depressed ; pt stated, I don't know why I feel this way. I just wake up like this . Pt reports suicidal ideation with plan to overdose on heroin; pt stated, I would do it so I wouldn't have to deal with my family or them deal with me. I cause people issues for people . denies HI/VH/AH. Pt c/o sore throat, will order Cepacol lozenges. 02/01 patient doing better, pushing herself to use coping skills which are helping; no SI; much more self aware. Very much hoping for a program as she has remained sober and desperately wants to continue being sober. 02/02 Though still with some depression, Patient reports improved mood; however still very anxious; discussed medication management and patient agreed to go up on Effexor to see if they can help with anxiety and depression. Patient still focusing on using coping skills instead of resorting to PRNs. 02/03 Continue current regime and plan of care. 02/04 Change klonopin to bid prn with a timing change of q 6 hours vs q 12 hours. 02/05 Patient reports she is doing overall pretty good. She still quite anxious but says she has been utilizing coping skills which have proved effective. She is having nightmares again, which had resolved over the past year but returned since Latuda accidentally discontinued. She says she does not want any further medication and is anticipating that they will again resolve with more time. Patient wants to remain with current [facility] and clinic and asked for help getting in touch with them since she has not been able to. Patient very much wants to get into a program and has been calling places on her. She remains in good behavioral and impulse control and engaged in treatment. -over the past year, patient has remained sober and doing well, engaged in treatment; to no fault of her own, Latuda was accidentally not prescribed and patient was without it for a month, during which time she emotionally decompensated; despite this she remained sober. For patient, there is a lot of pressure placed on being in a program/having housing which is a prerequisite for visitation with her daughter, with whom she desperately wants remain connected. Patient has worked hard to stay stable and employ coping skills and remains invested in her treatment and sobriety. It is handbook writer's opinion that it is in her best interest to remain on the unit further to continue helping with disposition planning. 02/08: Continue current tx plan. 02/09 Patient has been sober for 2 years on methadone; discussed possible switching to Suboxone which is easier to manage as an outpatient and she would like to do; however given her success with sobriety and currently unstable housing situation, she opts to remain on methadone. Otherwise patient reports her mood is much better and thinks the increase in venlafaxine is helping. Working on coping to manage her anxiety regarding housing 02/10: Continue current regimen and plans 02/11:Continue current regimen and plans Plan: CV Q 15 minute checks Continue Effexor XR to 150 mg daily for continued anxiety Continue Latuda to 120 mg daily at dinnertime Dispo planning with social Work Reason for continued inpatient stay Substantial Risk for: med/psych decompensation Time Spent With Patient Time: Total time managing care of this patient today ____ minutes.
[2023-02-11] MEDS: Ibuprofen 600 MG TABLET PO ×2 (12:46→20:06)
[2023-02-11] MEDS: chlorproMAZINE HCl 25 MG TABLET PO ×2 (12:46→17:55)
[2023-02-11] MEDS: clonazePAM 1 MG TABLET PO ×2 (12:46→20:11)
[2023-02-11] MEDS: cloNIDine HCL 0.2 MG TABLET PO (14:14)
[2023-02-11] MEDS: Acetaminophen 325 MG TABLET 650 MG PO (14:15)
[2023-02-11] MEDS: Lurasidone HCl 40 MG TABLET 120 MG PO (17:56)
[2023-02-11 20:00] VITALS: BP 107/60; PULSE 84; TEMP 36.2
[2023-02-11] MEDS: chlorproMAZINE HCl 25 MG TABLET 50 MG PO (20:03)
[2023-02-11] MEDS: cloNIDine HCL 0.2 MG TABLET 0.4 MG PO (20:05)
[2023-02-12] MEDS: Omeprazole 20 MG CAPSULE.DR PO ×2 (05:44→16:20)
[2023-02-12 06:00] VITALS: BP 131/80; PULSE 72; RESP 16; TEMP 36.6; O2SAT 91
[2023-02-12] MEDS: buPROPion HCl XL 150 MG TAB.ER.24H PO (08:58)
[2023-02-12] MEDS: metFORMIN HCl 500 MG TABLET PO ×2 (08:58→16:20)
[2023-02-12] MEDS: hydroCHLOROthiazide 12.5 MG TABLET PO (08:58)
[2023-02-12] MEDS: Propranolol HCL 10 MG TABLET PO (08:59)
[2023-02-12] MEDS: buPROPion HCl XL 300 MG TAB.ER.24H PO (08:59)
[2023-02-12] MEDS: Venlafaxine HCl ER 150 MG CAP.ER.24H PO (08:59)
[2023-02-12] MEDS: Multivitamin TABLET 1 TAB PO (08:59)
[2023-02-12] MEDS: Gabapentin 600 MG TABLET PO ×2 (08:59→14:00)
[2023-02-12] MEDS: Dextroamphetamine/Amphetamine XR 10 MG CAP.ER.24H 40 MG PO (08:59)
[2023-02-12] MEDS: oxyBUTYnin chloride 5 MG TABLET PO ×2 (08:59→14:00)
[2023-02-12] MEDS: methADONE HCl 20 MG/2 ML ORAL.CONC 190 MG PO (09:01)
--- NOTE | 2023-02-12 09:12 | P.PNPSI_ITS ---
Subjective Subjective Date of Service: 02/12/23 Reason For Visit: SI Interim History: Met with Patient; discussed with team; reviewed chart Patient reports good mood though anxious about getting into place in be near her daughter. Is able to cope through it and grateful for help she has received. Chronic Intermittent passive SI which is fleeting, minimal and able to be ignored. Patient decided to expand her options and is willing to go to any place for housing, even if it means being away from her daughter, figuring that she will eventually be able to move closer back. Mental Status Exam Mental Status Exam Narrative: Pt is alert and oriented; behavior is cooperative and calm; dressed in casual attire; mood is described as good and mood congruent, bright; eye contact appropriate; Speech is normal rate, volume and prosody and not pressured; no psychomotor agitation/retardation present; thought process is organized and goal directed; Thought content is on tx; otherwise pertinent to relevant topics and without any delusional content, paranoid ideations or grandiosity; denies SI/HI. There is no evidence of perceptual disturbance. Judgment/insight fair Diagnostics Vital Signs (24Hr): Vital Signs - 24 hr 02/11/23 20:00 02/12/23 06:00 Temperature 97.2 F 97.8 F Pulse Rate 84 72 Respiratory Rate 16 Blood Pressure 107/60 131/80 Pulse Oximetry 91 L Oxygen Delivery Method Room Air BMI result Body Mass Index 49.1 Labs 01/23/23 18:28 02/06/23 10:58 Medications Medications Current Medications Acetaminophen (Acetaminophen 325 Mg Tablet) 650 mg PO Q6H PRN PRN Reason: Headache/Pain Mild Scale (1-3) Last Admin: 02/11/23 14:15 Dose: 650 mg Al Hydroxide/Mg Hydroxide (Magnesium Hydrox/Alum Hydrox 30 Ml Oral.Susp) 30 ml PO Q6H PRN PRN Reason: Heartburn/Nausea Amphetamine/Dextroamphetamine (Dextroamphetamine/Amphetamine Xr 10 Mg Cap.Er.24h) 40 mg PO DAILY AMELIE Last Admin: 02/12/23 08:59 Dose: 40 mg Benzocaine (Throat Lozenge, Medicated Lozenge) 1 lozenge MUCOUS MEM Q2H PRN PRN Reason: Sore Throat Last Admin: 02/06/23 01:20 Dose: 1 lozenge Bupropion HCl (Bupropion Hcl Xl 150 Mg Tab.Er.24h) 150 mg PO DAILY AMELIE Last Admin: 02/12/23 08:58 Dose: 150 mg Bupropion HCl (Bupropion Hcl Xl 300 Mg Tab.Er.24h) 300 mg PO DAILY AMELIE Last Admin: 02/12/23 08:59 Dose: 300 mg Chlorpromazine HCl (Chlorpromazine Hcl 25 Mg Tablet) 50 mg PO BEDTIME AMELIE Last Admin: 02/11/23 20:03 Dose: 50 mg Chlorpromazine HCl (Chlorpromazine Hcl 25 Mg Tablet) 25 mg PO TID PRN PRN Reason: anxiety Last Admin: 02/11/23 17:55 Dose: 25 mg Clonazepam (Clonazepam 1 Mg Tablet) 1 mg PO Q6H PRN PRN Reason: Anxiety Last Admin: 02/11/23 20:11 Dose: 1 mg Clonidine HCl (Clonidine Hcl 0.2 Mg Tablet) 0.4 mg PO BEDTIME AMELIE; Protocol Last Admin: 02/11/23 20:05 Dose: 0.4 mg Clonidine HCl (Clonidine Hcl 0.2 Mg Tablet) 0.2 mg PO BID PRN; Protocol PRN Reason: anxiety Last Admin: 02/11/23 14:14 Dose: 0.2 mg Docusate Sodium (Docusate Sodium 100 Mg Capsule) 100 mg PO BID PRN PRN Reason: constipation Last Admin: 02/01/23 19:51 Dose: 100 mg Gabapentin (Gabapentin 600 Mg Tablet) 600 mg PO TID AMELIE Last Admin: 02/12/23 08:59 Dose: 600 mg Hydrochlorothiazide (Hydrochlorothiazide 12.5 Mg Tablet) 12.5 mg PO DAILY AMELIE; Protocol Last Admin: 02/12/23 08:58 Dose: 12.5 mg Hydroxyzine HCl (Hydroxyzine Hcl 25 Mg Tablet) 25 mg PO Q6H PRN PRN Reason: Anxiety Last Admin: 02/10/23 18:45 Dose: 25 mg Ibuprofen (Ibuprofen 600 Mg Tablet) 600 mg PO BID PRN PRN Reason: Pain (Scale Score 1-3) Last Admin: 02/11/23 20:06 Dose: 600 mg Lurasidone HCl (Lurasidone Hcl 40 Mg Tablet) 120 mg PO DAILY@1800 AMELIE Last Admin: 02/11/23 17:56 Dose: 120 mg Magnesium Hydroxide (Milk Of Magnesia 30 Ml Oral.Susp) 30 ml PO DAILY PRN PRN Reason: Constipation Metformin HCl (Metformin Hcl 500 Mg Tablet) 500 mg PO BIDWM [facility] Last Admin: 02/12/23 08:58 Dose: 500 mg Methadone HCl (Methadone Hcl 20 Mg/2 Ml Oral.Conc) 190 mg PO DAILY [facility] Last Admin: 02/12/23 09:01 Dose: 190 mg Multivitamins/Vitamin C (Multivitamin Tablet) 1 tab PO DAILY [facility] Last Admin: 02/12/23 08:59 Dose: 1 tab Nicotine (Nicotine 21 Mg Patch.Td24) 21 mg TRANSDERMA DAILY PRN PRN Reason: smoking cessation Last Admin: 02/01/23 12:40 Dose: 21 mg Nicotine Polacrilex (Nicotine Polacrilex 2 Mg Gum) 4 mg BUCCAL Q2H PRN PRN Reason: Nicotine Cravings Omeprazole (Omeprazole 20 Mg Capsule.Dr) 20 mg PO BID@0630,1630 [facility] Last Admin: 02/12/23 05:44 Dose: 20 mg Oxybutynin Chloride (Oxybutynin Chloride 5 Mg Tablet) 5 mg PO TID [facility] Last Admin: 02/12/23 08:59 Dose: 5 mg Propranolol HCl (Propranolol Hcl 10 Mg Tablet) 10 mg PO BID [facility]; Protocol Last Admin: 02/12/23 08:59 Dose: 10 mg Venlafaxine HCl (Venlafaxine Hcl Er 150 Mg Cap.Er.24h) 150 mg PO DAILY [facility] Last Admin: 02/12/23 08:59 Dose: 150 mg Allergies Allergies Allergy/AdvReac Type Severity Reaction Status Date / Time meperidine [From Demerol] Allergy Mild Unknown Verified 04/06/22 09:27 Penicillins Allergy Mild Unknown Verified 04/06/22 09:27 propoxyphene Allergy Mild Unknown Verified 04/06/22 09:27 [From Darvocet-N 50] Sulfa (Sulfonamide Allergy Mild Hives Verified 04/06/22 09:27 Antibiotics) penicillin V Allergy Unknown Swelling Verified 04/06/22 09:27 Assessment & Plan Assessment & Plan (1) Bipolar 1 disorder, depressed, severe: Status: Acute Code(s): F31.4 - Bipolar disorder, current episode depressed, severe, without psychotic features (2) Opioid use disorder, moderate, in early remission: Status: Acute Code(s): F11.21 - Opioid dependence, in remission (3) PTSD (post-traumatic stress disorder): Status: Acute Code(s): F43.10 - Post-traumatic stress disorder, unspecified (4) Diabetes: Status: Acute Code(s): E11.9 - Type 2 diabetes mellitus without complications Plan Patient is a 32-year-old female with history of bipolar disorder, PTSD, diabetes, opioid use disorder in sustained remission on methadone, who presents for worsening depression following unintended discontinuation of Latuda. Patient reports that she was doing quite well after her last discharge, April 2022 and has not been to the hospital since. She was at that [facility] which she found very helpful, was seeing her daughter, taking less p.r.n. clonazepam, sober and was doing well up until about a month ago when her insurance stopped covering Latuda; provider reapplied for prior Auth however took considerable time. Since then her mood started to decline and she became really depressed, with low energy, diminished interest, poor concentration, sleep disturbance, appetite disturbance and found it difficult to fulfill obligations at the program. Patient flipped into a mixed-manic episode, talking fast, no sleep, agitated, out at night smoking past curfew, inefficient and impulsively left the program. Patient then became depressed again. She eventually was able to restart Latuda for the past several days however she remains very depressed and started feeling suicidal so self presented to not to hurt herself. Denies any relapse, drug or alcohol use though reports she got close to relapsing with opioids. Denies AVH. Patient remains depressed; wants to get back on former home dose Hospital course: 01/25 patient reports continued depression, continued SI; patient understands that she just got back to her regular dose of Latuda and recovery will take more time; continue current treatment plan 01/26 remains quite depressed with SI; isolating; agrees to push herself into behavioral activation; patient is now back on medication regimen that has helped in the past as and will likely take more time for depression to be again abating; continue current med regimen at this time 01/29 still quite depressed; continue current tx plan 01/30 little less depressed; using coping skill; getting more optimistic 01/31:Patient reports feeling anxious and depressed ; pt stated, I don't know why I feel this way. I just wake up like this . Pt reports suicidal ideation with plan to overdose on heroin; pt stated, I would do it so I wouldn't have to deal with my family or them deal with me. I cause people issues for people . denies HI/VH/AH. Pt c/o sore throat, will order Cepacol lozenges. 02/01 patient doing better, pushing herself to use coping skills which are helping; no SI; much more self aware. Very much hoping for a program as she has remained sober and desperately wants to continue being sober. 02/02 Though still with some depression, Patient reports improved mood; however still very anxious; discussed medication management and patient agreed to go up on Effexor to see if they can help with anxiety and depression. Patient still focusing on using coping skills instead of resorting to PRNs. 02/03 Continue current regime and plan of care. 02/04 Change klonopin to bid prn with a timing change of q 6 hours vs q 12 hours. 02/05 Patient reports she is doing overall pretty good. She still quite anxious but says she has been utilizing coping skills which have proved effective. She is having nightmares again, which had resolved over the past year but returned since Latuda accidentally discontinued. She says she does not want any further medication and is anticipating that they will again resolve with more time. Patient wants to remain with current [facility] and clinic and asked for help getting in touch with them since she has not been able to. Patient very much wants to get into a program and has been calling places on her. She remains in good behavioral and impulse control and engaged in treatment. -over the past year, patient has remained sober and doing well, engaged in treatment; to no fault of her own, Latuda was accidentally not prescribed and patient was without it for a month, during which time she emotionally decompensated; despite this she remained sober. For patient, there is a lot of pressure placed on being in a program/having housing which is a prerequisite for visitation with her daughter, with whom she desperately wants remain connected. Patient has worked hard to stay stable and employ coping skills and remains invested in her treatment and sobriety. It is scientific technical writer's opinion that it is in her best interest to remain on the unit further to continue helping with disposition planning. 02/08: Continue current tx plan. 02/09 Patient has been sober for 2 years on methadone; discussed possible switching to Suboxone which is easier to manage as an outpatient and she would like to do; however given her success with sobriety and currently unstable housing situation, she opts to remain on methadone. Otherwise patient reports her mood is much better and thinks the increase in venlafaxine is helping. Working on coping to manage her anxiety regarding housing 02/10: Continue current regimen and plans 02/11:Continue current regimen and plans 02/12 continues to do well, stable, using coping skills, good mood, sometimes patient will intermittent, passive SI however this is chronic and remains fleeting and minimal and able to be ignored. Patient is optimistic. Later the day scientific technical writer found out that patient did get accepted to a [facility] respite and able to discharge today. She is not in imminent risk for harm to self or others and appropriate to continue treatment in the community. Plan: CV Q 15 minute checks Continue Effexor XR to 150 mg daily for continued anxiety Continue Latuda to 120 mg daily at dinnertime Dispo planning with social Work Patient educated on: diagnosis, medication risk/benefits and therapeutic strategies Informed Consent: understands Reason for continued inpatient stay Substantial Risk for: stable for discharge Time Spent With Patient Time: Total time managing care of this patient today ____ minutes.
[2023-02-12] MEDS: Ibuprofen 600 MG TABLET PO (12:40)
[2023-02-12] MEDS: cloNIDine HCL 0.2 MG TABLET PO (12:40)
[2023-02-12] MEDS: chlorproMAZINE HCl 25 MG TABLET PO (16:20)
[2023-02-12] MEDS: Lurasidone HCl 40 MG TABLET 120 MG PO (16:20)
[2023-02-12] MEDS: Acetaminophen 325 MG TABLET 650 MG PO (16:20)
[2023-02-12] MEDS: clonazePAM 1 MG TABLET PO (16:20)
--- NOTE | 2023-02-12 16:34 | PM.PSYDC ---
DS: Providers Provider Date of Service: 02/12/23 Date of admission: 01/24/23 15:04 Date of discharge: 02/12/23 Primary care physician: Diamond Escoto MD Attending physician on admission: Emerson Griffith Attending physician on discharge: Emerson Griffith DS: Diagnosis Discharge Diagnosis (1) Bipolar 1 disorder, depressed, severe: Status: Acute (2) Opioid use disorder, moderate, in early remission: Status: Acute (3) PTSD (post-traumatic stress disorder): Status: Acute (4) Diabetes: Status: Acute DS: Medications Discharge Medications Home Medications: Home Medications Medication Instructions Recorded Confirmed ibuprofen 600 mg tablet 600 mg PO BID PRN Pain (Scale 01/23/23 01/23/23 Score 1-3) methadone 10 mg/mL oral 190 mg PO DAILY 01/24/23 01/24/23 concentrate (Methadone Intensol) Previous Rx's Medication Instructions Recorded acetaminophen 325 mg tablet 650 mg (2 x 325 mg) PO Q6H PRN 02/12/23 Headache/Pain Mild Scale (1-3) #0 tabs bupropion HCl 150 mg 24 hr tablet, 150 mg PO QAM 30 days #30 tabs 02/12/23 extended release bupropion HCl 300 mg 24 hr tablet, 300 mg PO DAILY 30 days #30 tabs 02/12/23 extended release chlorpromazine 25 mg tablet 25 mg PO Q6H PRN anxiety 30 days 02/12/23 #90 tabs chlorpromazine 50 mg tablet 50 mg PO BEDTIME 30 days #30 tabs 02/12/23 clonazepam 1 mg tablet 1 mg PO BID PRN anxiety 30 days 02/12/23 #60 tabs clonidine HCl 0.2 mg tablet 0.2 mg PO BID PRN anxiety 30 days 02/12/23 #60 tabs clonidine HCl 0.2 mg tablet 0.4 mg (2 x 0.2 mg) PO BEDTIME PRN 02/12/23 nightmares/insomnia 30 days #60 tabs dextroamphetamine-amphetamine ER 40 mg (2 x 20 mg) PO DAILY 30 days 02/12/23 20 mg 24hr capsule,extend release #60 caps docusate sodium 100 mg capsule 100 mg PO BID PRN constipation #0 02/12/23 caps gabapentin 600 mg tablet 600 mg PO TID 30 days #90 tabs 02/12/23 hydrochlorothiazide 12.5 mg tablet 12.5 mg PO DAILY 30 days #30 tabs 02/12/23 hydroxyzine HCl 25 mg tablet 25 mg PO Q6H PRN Anxiety 30 days 02/12/23 #30 tabs lurasidone 120 mg tablet 120 mg PO DAILY 30 days #30 tabs 02/12/23 metformin 500 mg tablet 500 mg PO BIDWMEAL 30 days #60 tabs 02/12/23 multivitamin 1 tab PO DAILY 30 days #30 tabs 02/12/23 omeprazole 20 mg capsule,delayed 20 mg PO BID@0630,1630 30 days #60 02/12/23 release caps oxybutynin chloride 5 mg tablet 5 mg PO TID 30 days #90 tabs 02/12/23 propranolol 10 mg tablet 10 mg PO BID 30 days #60 tabs 02/12/23 venlafaxine 150 mg 150 mg PO DAILY 30 days #30 caps 02/12/23 capsule,extended release 24 hr Mental Status Exam Mental Status Exam Narrative: Pt is alert and oriented; behavior is cooperative and calm; dressed in casual attire; mood is described as good and mood congruent, bright; eye contact appropriate; Speech is normal rate, volume and prosody and not pressured; no psychomotor agitation/retardation present; thought process is organized and goal directed; Thought content is on tx; otherwise pertinent to relevant topics and without any delusional content, paranoid ideations or grandiosity; denies SI/HI. There is no evidence of perceptual disturbance. Judgment/insight fair Data Data Completed and Pending Completed studies during hospitalization [Text1]: 02/06/23 10:58 Creatinine 0.79 Estim Creat Clear Calc 122.4 Estimated GFR > 60 01/23/23 Unknown Urine clean catch Urine Culture - Final Enterococcus faecalis DS: Summary Hospital Course Hospital Course: Patient is a 32-year-old female with history of bipolar disorder, PTSD, diabetes, opioid use disorder in sustained remission on methadone, who presents for worsening depression following unintended discontinuation of Latuda. Patient reports that she was doing quite well after her last discharge, April 2022 and has not been to the hospital since. She was at that [facility] program which she found very helpful, was seeing her daughter, taking less p.r.n. clonazepam, sober and was doing well up until about a month ago when her insurance stopped covering Latuda; provider reapplied for prior Auth however took considerable time. Since then her mood started to decline and she became really depressed, with low energy, diminished interest, poor concentration, sleep disturbance, appetite disturbance and found it difficult to fulfill obligations at the program. Patient flipped into a mixed-manic episode, talking fast, no sleep, agitated, out at night smoking past curfew, inefficient and impulsively left the program. Patient then became depressed again. She eventually was able to restart Latuda for the past several days however she remains very depressed and started feeling suicidal so self presented to not to hurt herself. Denies any relapse, drug or alcohol use though reports she got close to relapsing with opioids. Denies AVH. Patient remains depressed; wants to get back on former home dose Impression: History of bipolar disorder and PTSD however to recently, she has been doing quite well. -over the past year Patient has worked hard to remain stable and employ coping skills; she's been at a program, engaged in her treatment and doing well, sober, and maintaining a good mood. To no fault of her own, Latuda was accidentally not prescribed (PA ran out) and patient was without it for a month, during which time she emotionally decompensated; despite this she remained sober. For patient, there is a lot of pressure placed on being in a program/having housing since this is a prerequisite for visitation with her daughter, with whom she desperately wants remain connected. Patient presents hoping to get back to being stable and get back to housing. Hospital course: 01/25 patient reports continued depression, continued SI; patient understands that she just got back to her regular dose of Latuda and recovery will take more time; continue current treatment plan 01/26 remains quite depressed with SI; isolating; agrees to push herself into behavioral activation; patient is now back on medication regimen that has helped in the past as and will likely take more time for depression to be again abating; continue current med regimen at this time 01/29 still quite depressed; continue current tx plan 01/30 little less depressed; using coping skill; getting more optimistic 01/31:Patient reports feeling anxious and depressed ; pt stated, I don't know why I feel this way. I just wake up like this . Pt reports suicidal ideation with plan to overdose on heroin; pt stated, I would do it so I wouldn't have to deal with my family or them deal with me. I cause people issues for people . denies HI/VH/AH. Pt c/o sore throat, will order Cepacol lozenges. 02/01 patient doing better, pushing herself to use coping skills which are helping; no SI; much more self aware. Very much hoping for a program as she has remained sober and desperately wants to continue being sober. 02/02 Though still with some depression, Patient reports improved mood; however still very anxious; discussed medication management and patient agreed to go up on Effexor to see if they can help with anxiety and depression. Patient still focusing on using coping skills instead of resorting to PRNs. 02/05 Patient reports she is doing overall pretty good. She still quite anxious but says she has been utilizing coping skills which have proved effective. She is having nightmares again, which had resolved over the past year but returned since Latuda accidentally discontinued. She says she does not want any further medication and is anticipating that they will again resolve with more time. Patient wants to remain with current BPH and clinic and asked for help getting in touch with them since she has not been able to. Patient very much wants to get into a program and has been calling places on her. She remains in good behavioral and impulse control and engaged in treatment. 02/09 Patient has been sober for 2 years on methadone; discussed possible switching to Suboxone which is easier to manage as an outpatient and she would like to do; however given her success with sobriety and currently unstable housing situation, she opts to remain on methadone. Otherwise patient reports her mood is much better and thinks the increase in venlafaxine is helping. Working on coping to manage her anxiety regarding housing 02/10: Continue current regimen and plans 02/11:Continue current regimen and plans 02/12 continues to do well, stable, using coping skills, good mood, sometimes patient will intermittent, passive SI however this is chronic and remains fleeting and minimal and able to be ignored. Patient is optimistic. Later the day writer editor found out that patient did get accepted to a [facility] respite and able to discharge today. Patient has remained in good behavioral and impulse control throughout her time in the unit. She has been appropriate with peers and staff and engaged in treatment. While patient remains at risk for mood dysregulation and on some level relapse (though she has been sober for nearly 2 years), she is currently with a good mood, future oriented and optimistic. She is discharging to a stable environment. She is not in imminent risk for harm to self or others and appropriate to continue treatment in the community. Time spent discussing smoking cessation with patient: 3 to 10 minutes Status at Discharge Functional status at discharge: independent ambulation Overall status at discharge: patient is back to baseline Time Spent with Patient Time attestation: Total time managing care of this patient today ____ minutes. Time spent: Greater than 30 minutes Discharge Plan Discharge Anticipated Discharge Date/Time: 02/12/23 16:34 Patient Disposition: Snf Discharge Diagnosis: bipolar I disorder, severe, recurrent, most recent episode depressed in full remission Referrals: [facility] [Other] - 1 Week (Patient referred and accepted to [facility] wait list. Patient should follow-up with [facility] after discharge) [facility] [Other] - 1 Week (Patient accepted to [facility] for step-down Patient should call [facility] upon arrival.) Diamond Escoto MD [Primary Care Provider] - 1 Week Discharge Medications: New venlafaxine 150 mg Capsule,Extended Release 24hr 150 mg PO DAILY 30 Days Qty: 30 1RF acetaminophen 325 mg Tablet 650 mg PO Q6H PRN (Reason: Headache/Pain Mild Scale (1-3)) Qty: 0 0RF hydroxyzine HCl 25 mg Tablet 25 mg PO Q6H PRN (Reason: Anxiety) 30 Days Qty: 30 0RF docusate sodium 100 mg Capsule 100 mg PO BID PRN (Reason: constipation) Qty: 0 0RF Continued ibuprofen 600 mg tablet 600 mg PO BID PRN (Reason: Pain (Scale Score 1-3)) methadone [Methadone Intensol] 10 mg/mL Concentrate 190 mg PO DAILY multivitamin Tablet 1 tab PO DAILY 30 Days Qty: 30 1RF gabapentin 600 mg tablet 600 mg PO TID 30 Days Qty: 90 1RF clonazepam 1 mg tablet 1 mg PO BID PRN (Reason: anxiety ) 30 Days Qty: 60 1RF Rx Instructions: may take within one hour of each other if needed propranolol 10 mg tablet 10 mg PO BID 30 Days Qty: 60 1RF omeprazole 20 mg capsule,delayed release(DR/EC) 20 mg PO BID@0630,1630 30 Days Qty: 60 1RF oxybutynin chloride 5 mg tablet 5 mg PO TID 30 Days Qty: 90 1RF chlorpromazine 50 mg tablet 50 mg PO BEDTIME 30 Days Qty: 30 1RF bupropion HCl 300 mg tablet extended release 24 hr 300 mg PO DAILY 30 Days Qty: 30 1RF Rx Instructions: take with 150mg tab bupropion HCl 150 mg tablet extended release 24 hr 150 mg PO QAM 30 Days Qty: 30 1RF Rx Instructions: take with 300mg tab hydrochlorothiazide 12.5 mg tablet 12.5 mg PO DAILY 30 Days Qty: 30 1RF Changed metformin 500 mg tablet 500 mg PO BIDWMEAL 30 Days Qty: 60 0RF clonidine HCl 0.2 mg tablet 0.4 mg PO BEDTIME PRN (Reason: nightmares/insomnia) 30 Days Qty: 60 1RF clonidine HCl 0.2 mg tablet 0.2 mg PO BID PRN (Reason: anxiety) 30 Days Qty: 60 1RF dextroamphetamine-amphetamine 20 mg capsule,extended release 24hr 40 mg PO DAILY 30 Days Qty: 60 0RF Rx Instructions: Partial Fill upon patient request. chlorpromazine 25 mg tablet 25 mg PO Q6H PRN (Reason: anxiety) 30 Days Qty: 90 1RF lurasidone 120 mg tablet 120 mg PO DAILY 30 Days Qty: 30 1RF Rx Instructions: must administer with food (at least 350 calories) Discontinued venlafaxine 75 mg tablet 75 mg PO DAILY pyridoxine (vitamin B6) 50 mg tablet 50 mg PO DAILY folic acid 1 mg tablet 1 mg PO DAILY dextroamphetamine-amphetamine [Adderall XR] 30 mg capsule,extended release 24hr 1 cap PO QAM lurasidone 20 mg tablet 20 mg PO DAILY venlafaxine 37.5 mg tablet 37.5 mg PO DAILY Discharge Orders: Discharge Order (Routine); Ordered 02/12/23 Ordered By: Emerson Griffith Diet: Regular diet Activity on Discharge: As tolerated Stand Alone Forms: Patient Portal Discharge page Care Plan Goals: Maintain mood and safe behaviors Take medications as prescribed Continue to pursue sobriety Practice coping skills Continue with outpatient providers and reach out to them as needed Health Concerns: Mood stability and behaviors Diabetes GERD Plan of Treatment: Follow up with your PCP, psychiatric provider and other outpatient providers regarding above concerns Take medications as prescribed Assessment: Risk assessment at time of discharge:? Patient was interviewed prior to discharge and found to be fully oriented and without any SI or HI. Patient has improved insight and judgment and wants to continue treatment. Patient is not in imminent risk of harm to self or others and has a safety plan that includes presenting to the closest ER or calling 911 if feeling unsafe.? Patient has been observed closely by nursing and unit staff throughout admission; patient has not engaged in any behaviors that suggest dangerousness to self or others and has demonstrated appropriate behaviors and impulse control
[2023-02-12] MEDS: Naloxone HCl Nasal TAKE HOME 4 MG SPRAY 8 MG NOSTRILALT (16:48)
== END 2023-02-12 17:30 | disposition home or self-care (01) | DRG 753 ==
LOC: HO.ED 19:44 → HO.PM5 01-24 15:13
PROVIDERS: Clinical Nurse Specialist Psychiatric/Mental Health, Adult; Emergency Medicine; Emergency Medicine Emergency Medical Services; Admitting Provider Psychiatry & Neurology Psychiatry; Emergency Provider Internal Medicine; PCP Family Medicine; Visit Provider Psychiatry & Neurology Psychiatry
DX: F31.4 Bipolar disorder, current episode depressed, severe, without psychotic features (principal); R45.851 Suicidal ideations; F11.20 Opioid dependence, uncomplicated; F43.10 Post-traumatic stress disorder, unspecified; F17.210 Nicotine dependence, cigarettes, uncomplicated; Z20.822 Contact with and (suspected) exposure to COVID-19; Z71.6 Tobacco abuse counseling; Z79.84 Long term (current) use of oral hypoglycemic drugs; Z79.899 Other long term (current) drug therapy
CPT/HCPCS: 0241U; 36415; 80053; 80143; 80179; 80307; 81001; 81025; 82565; 85025; 87086; 87088; 87186; 87635; 90686; 93005; 99285; S9485

== ENCOUNTER 2023-01-24 15:04 | Outpatient (BNV) | payer OTHER, SELFPAY | END 2023-02-01 13:43 | PROVIDERS: Admitting Provider Psychiatry & Neurology Psychiatry; Emergency Provider Internal Medicine; PCP Family Medicine; Visit Provider Internal Medicine Cardiovascular Disease | DX: I45.10 Unspecified right bundle-branch block (principal); R94.31 Abnormal electrocardiogram [ECG] [EKG] | CPT/HCPCS: 93010 ==

== ENCOUNTER → 2023-01-24 15:04 | Outpatient (BNV) | payer OTHER, SELFPAY | PROVIDERS: Admitting Provider Psychiatry & Neurology Psychiatry; Emergency Provider Internal Medicine; PCP Family Medicine; Visit Provider Psychiatry & Neurology Psychiatry | DX: F31.4 Bipolar disorder, current episode depressed, severe, without psychotic features (principal); F11.21 Opioid dependence, in remission; F43.11 Post-traumatic stress disorder, acute; E11.9 Type 2 diabetes mellitus without complications | CPT/HCPCS: 99231; 99232; 99499 ==